=== PATIENT | male | born 1960 | race American Indian/Alaskan Native ===

== ENCOUNTER 2016-11-02 16:06 | Inpatient (IN) | payer BC ==
[2016-11-02] MEDS ORDERED: Sodium Chloride 0.9% 10 ML Syringe FLUSH PRN (18:50)
[2016-11-02] MEDS ORDERED: Sodium Chloride 0.9% 1,000 ML IV ONE (18:50)
[2016-11-02] MEDS ORDERED: Insulin Regular, Human 100 Units/ML 3 ML Vial SUBCUT ONE (20:07)
[2016-11-02] MEDS ORDERED: Lactulose Soln 10 GM/15 ML 30 ML UD Cup PO ONE (20:07)
--- NOTE | 2016-11-02 21:31 | EDM.PDOC ---
ED HPI GI/ABDOMINAL - General Chief Complaint: Gastrointestinal Problem Stated Complaint: HIGH AMMONIA Time Seen by Provider: 11/02/16 17:56 Source of Information: Reports: Patient History Limitations: Reports: Altered mental status - History of Present Illness INITIAL COMMENTS - FREE TEXT/NARRATIVE: Patient presents for evaluation and treatment of elevated ammonia levels. When patient first arrived in the ER it was quite busy. I was at first unclear how he arrived in the ER. An ambulance went out for a patient with elevated ammonia levels but did not bring him in. He was brought in by another family member who has since left the ER. Patient is very confused. He has difficulty answering my questions. H stutters and searches for words. Patient feels like he does when he normally has elevated ammonia levels. He is denying any pain. Review of his chart shows he should be on lactulose and rifaximin for his chronic liver disease. It is unclear he has been taking his medications. Review also shows associate Dr. Hernandez, GI specialist in [place]. It is also unclear if he has been following up with Dr. Hernandez or when his last visit would've been. Patient is also diabetic. It is unclear she has been taking his medications. It is unclear what his last blood sugar was. Bedside blood sugar in Ed is 309. Patient has been admitted to our hospital on several different occasions for hepatic encephalopathy and diabetes. Patient denies drinking any alcohol. - Related Data Allergies/ADRs: Allergies Allergy/AdvReac Type Severity Reaction Status Date / Time No Known Allergies Allergy Verified 11/02/16 16:40 Home Meds: Home Meds Pantoprazole [Protonix] 40 mg PO ACBREAKFAST #30 tab.cr 12/08/15 [Rx] Spironolactone 50 mg PO BID 03/03/16 [History] Rifaximin [Xifaxan] 550 mg PO BID 06/13/16 [History] metFORMIN [Glucophage] 850 mg PO BID 06/13/16 [History] Lactulose 30 ml PO TID 07/22/16 [History] Past Medical History Cardiovascular History: Reports: Hypertension Gastrointestinal History: Reports: Cirrhosis, GERD, GI bleed Other Gastrointestinal History: liver failure;stomach bleed Neurological History: Reports: Other (see below) Other Neuro History: hepatic encephalopathy Psychiatric History: Reports: Addiction Other Psychiatric History: recovered alcoholic Endocrine/Metabolic History: Reports: Diabetes, type II, Obesity/BMI 30+ Hematologic History: Reports: Anemia, Blood transfusion(s) Dermatologic History: Reports: Cellulitis, Other (see below) Other Dermatologic History: 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 History of cellulitis to both legs. - Infectious Disease History Infectious Disease History: Reports: Hepatitis non A,B,C, Measles, MRSA - Past Surgical History GI Surgical History: Reports: Other (see below) Other GI Surgeries/Procedures: esophageal varices Social & Family History - Family History Family Medical History: Noncontributory - Tobacco Use Smoking Status *Q: Former Smoker Years of Tobacco use: 25 Packs/Tins Daily: 0.5 Used Tobacco, but Quit: Yes Month Tobacco Last Used: 20 years ago Second Hand Smoke Exposure: No - Caffeine Use Caffeine Use: Reports: Coffee, Soda - Alcohol Use Days Per Week of Alcohol Use: 0 - Recreational Drug Use Recreational Drug Use: No - Living Situation & Occupation Living situation: Reports: , with family (Grandson) 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) ED ROS GENERAL - Review of Systems Review Of Systems: See Below Cardiovascular: Denies: Chest pain GI/Abdominal: Denies: Abdominal pain Neurological: Reports: Confusion ED EXAM, GI/ABD - Physical Exam Exam: See Below Exam Limited By: Altered mental status General Appearance: alert, WD/WN, obese Respiratory/Chest: no respiratory distress, lungs clear, normal breath sounds Cardiovascular: normal peripheral pulses, regular rate, rhythm, systolic murmur GI/Abdominal: normal bowel sounds, soft, non tender Neurological: confused, slow to respond Skin Exam: Dry, Jaundice EKG INTERPRETATION EKG Date: 11/02/16 Time: 18:50 Rhythm: NSR Rate (beats/min): 77 [place]: LAD-left axis deviation P-wave: present QRS: normal ST-T: normal QT: normal EKG Interpretation Comments: NSR at 77 bpm. No acute changes. Reviewed by myself and dr. Gutierres. Course - Vital Signs Last Recorded V/S: Last Vital Signs Temp 36.8 C 11/03/16 08:00 Pulse 78 11/02/16 21:00 Resp 19 11/03/16 08:00 BP 113/77 11/03/16 08:00 Pulse Ox 99 11/03/16 08:00 - Orders/Labs/Meds Orders: Active Orders 24 hr Category Date Time Status Chest 1V Frontal [CR] Stat Exams 11/02/16 18:44 Taken PTT MIXING STUDY [REF] Stat Lab 11/02/16 18:40 Stop Req Peripheral IV Insertion Adult [OM.PC] Routine Oth 11/02/16 18:50 Ordered Medication Orders Erythromycin (Jed-Tab) 250 mg PO Q6H [facility] Last Admin: 11/03/16 08:55 Dose: 250 mg Insulin Aspart (Novolog) 0 unit SUBCUT QIDACANDBED [facility] PRN Reason: Protocol Last Admin: 11/03/16 06:45 Dose: 2 units Lactulose (Cephulac) 40 gm PO TID [facility] Last Admin: 11/03/16 08:55 Dose: 40 gm Pantoprazole Sodium (Protonix) 40 mg PO DAILY@0700 [facility] Last Admin: 11/03/16 06:41 Dose: 40 mg Sodium Chloride (Saline Flush) 10 ml FLUSH ASDIRECTED PRN PRN Reason: Keep Vein Open Spironolactone (Aldactone) 50 mg PO DAILY [facility] Last Admin: 11/03/16 08:54 Dose: 50 mg Labs: Laboratory Tests 11/02/16 11/02/16 11/02/16 Range/Units 16:25 16:25 16:38 WBC (4.23-9.07) K/mm3 RBC (4.63-6.08) M/mm3 Hgb (13.7-17.5) gm/L Hct (40.1-51.0) % MCV (79.0-92.2) fl MCH (25.7-32.2) pg MCHC (32.2-35.5) g/dl RDW Std Deviation (35.1-43.9) fL Plt Count (163-337) K/mm3 MPV (9.4-12.3) fl Neutrophils % (Manual) (40-60) % Band Neutrophils % (0-10) % Lymphocytes % (Manual) (20-40) % Atypical Lymphs % % Monocytes % (Manual) (2-10) % Eosinophils % (Manual) (0.8-7.0) % Basophils % (Manual) (0.2-1.2) Platelet Estimate Plt Morphology Comment Polychromasia Poikilocytosis Anisocytosis Microcytosis Macrocytosis Spherocytes Ovalocytes RBC Morph Comment PT (8.0-13.0) SECONDS INR APTT (22-36) SECONDS Sodium (136-145) mEq/L Potassium (3.5-5.1) mEq/L Chloride (98-107) mEq/L Carbon Dioxide (21-32) mEq/L Anion Gap (5-15) BUN (7-18) mg/dL Creatinine (0.7-1.3) mg/dL Est Cr Clr Drug Dosing mL/min Estimated GFR (MDRD) (>60) mL/min BUN/Creatinine Ratio (14-18) Glucose (74-106) mg/dL POC Glucose 309 H (70-105) mg/dL Calcium (8.5-10.1) mg/dL Magnesium (1.8-2.4) mg/dl Total Bilirubin (0.2-1.0) mg/dL AST (15-37) U/L ALT (16-63) U/L Alkaline Phosphatase (46-116) U/L Ammonia (11-32) umol/L B-Natriuretic Peptide (0-100) pg/mL Total Protein (6.4-8.2) g/dl Albumin (3.4-5.0) g/dl Globulin gm/dL Albumin/Globulin Ratio (1-2) Urine Color Yellow (Yellow) Urine Appearance Clear (Clear) Urine pH 7.0 (5.0-8.0) Ur Specific [place] 1.015 (1.005-1.030) Urine Protein Negative (Negative) Urine Glucose (UA) 2+ H (Negative) Urine Ketones Negative (Negative) Urine Occult Blood 1+ H (Negative) Urine Nitrite Negative (Negative) Urine Bilirubin Negative (Negative) Urine Urobilinogen 4.0 H (0.2-1.0) Ur Leukocyte Esterase Trace H (Negative) Urine RBC Not seen (0-5) /hpf Urine WBC 0-5 (0-5) /hpf Ur Squamous Epith Cells 0-5 (0-5) /hpf Urine Bacteria Rare (FEW) /hpf Urine Mucus Not seen (FEW) /hpf Urine Opiates Screen Negative (NEGATIVE) Ur Buprenorphine Scrn Negative (NEGATIVE) Ur Oxycodone Screen Negative (NEGATIVE) Urine Methadone Screen Negative (NEGATIVE) Ur Propoxyphene Screen Negative (NEGATIVE) Ur Barbiturates Screen Negative (NEGATIVE) Ur Tricyclics Screen Negative (NEGATIVE) Ur Phencyclidine Scrn Negative (NEGATIVE) Ur Amphetamine Screen Negative (NEGATIVE) U Methamphetamines Scrn Negative (NEGATIVE) U Benzodiazepines Scrn Negative (NEGATIVE) U Cocaine Metab Screen Negative (NEGATIVE) U Marijuana (THC) Screen Negative (NEGATIVE) Ethyl Alcohol (0.00) gm% 11/02/16 11/02/16 11/02/16 Range/Units 18:20 18:20 18:20 WBC 2.04 L* (4.23-9.07) K/mm3 RBC 3.01 L (4.63-6.08) M/mm3 Hgb 9.6 L (13.7-17.5) gm/L Hct 27.8 L (40.1-51.0) % MCV 92.4 H (79.0-92.2) fl MCH 31.9 (25.7-32.2) pg MCHC 34.5 (32.2-35.5) g/dl RDW Std Deviation 53.9 H (35.1-43.9) fL Plt Count 39 L (163-337) K/mm3 MPV 10.0 (9.4-12.3) fl Neutrophils % (Manual) 74 H (40-60) % Band Neutrophils % 0 (0-10) % Lymphocytes % (Manual) 14 L (20-40) % Atypical Lymphs % 0 % Monocytes % (Manual) 6 (2-10) % Eosinophils % (Manual) 4 (0.8-7.0) % Basophils % (Manual) 2 H (0.2-1.2) Platelet Estimate Marked dec Plt Morphology Comment Normal Polychromasia 1+ slight Poikilocytosis 1+ slight Anisocytosis 1+ slight Microcytosis 1+ slight Macrocytosis 1+ slight Spherocytes 1+ slight Ovalocytes 1+ slight RBC Morph Comment Abnormal PT (8.0-13.0) SECONDS INR APTT (22-36) SECONDS Sodium 139 (136-145) mEq/L Potassium 4.4 (3.5-5.1) mEq/L Chloride 107 (98-107) mEq/L Carbon Dioxide 24 (21-32) mEq/L Anion Gap 12.4 (5-15) BUN 6 L (7-18) mg/dL Creatinine 0.8 (0.7-1.3) mg/dL Est Cr Clr Drug Dosing 105.19 mL/min Estimated GFR (MDRD) > 60 (>60) mL/min BUN/Creatinine Ratio 7.5 L (14-18) Glucose 301 H (74-106) mg/dL POC Glucose (70-105) mg/dL Calcium 8.1 L (8.5-10.1) mg/dL Magnesium (1.8-2.4) mg/dl Total Bilirubin 2.1 H (0.2-1.0) mg/dL AST 31 (15-37) U/L ALT 29 (16-63) U/L Alkaline Phosphatase 108 (46-116) U/L Ammonia 171 H (11-32) umol/L B-Natriuretic Peptide (0-100) pg/mL Total Protein 7.1 (6.4-8.2) g/dl Albumin 2.1 L (3.4-5.0) g/dl Globulin 5.0 gm/dL Albumin/Globulin Ratio 0.4 L (1-2) Urine Color (Yellow) Urine Appearance (Clear) Urine pH (5.0-8.0) Ur Specific [place] (1.005-1.030) Urine Protein (Negative) Urine Glucose (UA) (Negative) Urine Ketones (Negative) Urine Occult Blood (Negative) Urine Nitrite (Negative) Urine Bilirubin (Negative) Urine Urobilinogen (0.2-1.0) Ur Leukocyte Esterase (Negative) Urine RBC (0-5) /hpf Urine WBC (0-5) /hpf Ur Squamous Epith Cells (0-5) /hpf Urine Bacteria (FEW) /hpf Urine Mucus (FEW) /hpf Urine Opiates Screen (NEGATIVE) Ur Buprenorphine Scrn (NEGATIVE) Ur Oxycodone Screen (NEGATIVE) Urine Methadone Screen (NEGATIVE) Ur Propoxyphene Screen (NEGATIVE) Ur Barbiturates Screen (NEGATIVE) Ur Tricyclics Screen (NEGATIVE) Ur Phencyclidine Scrn (NEGATIVE) Ur Amphetamine Screen (NEGATIVE) U Methamphetamines Scrn (NEGATIVE) U Benzodiazepines Scrn (NEGATIVE) U Cocaine Metab Screen (NEGATIVE) U Marijuana (THC) Screen (NEGATIVE) Ethyl Alcohol (0.00) gm% 11/02/16 11/02/16 11/02/16 Range/Units 18:20 18:20 18:20 WBC (4.23-9.07) K/mm3 RBC (4.63-6.08) M/mm3 Hgb (13.7-17.5) gm/L Hct (40.1-51.0) % MCV (79.0-92.2) fl MCH (25.7-32.2) pg MCHC (32.2-35.5) g/dl RDW Std Deviation (35.1-43.9) fL Plt Count (163-337) K/mm3 MPV (9.4-12.3) fl Neutrophils % (Manual) (40-60) % Band Neutrophils % (0-10) % Lymphocytes % (Manual) (20-40) % Atypical Lymphs % % Monocytes % (Manual) (2-10) % Eosinophils % (Manual) (0.8-7.0) % Basophils % (Manual) (0.2-1.2) Platelet Estimate Plt Morphology Comment Polychromasia Poikilocytosis Anisocytosis Microcytosis Macrocytosis Spherocytes Ovalocytes RBC Morph Comment PT 15.2 H (8.0-13.0) SECONDS INR 1.37 APTT (22-36) SECONDS Sodium (136-145) mEq/L Potassium (3.5-5.1) mEq/L Chloride (98-107) mEq/L Carbon Dioxide (21-32) mEq/L Anion Gap (5-15) BUN (7-18) mg/dL Creatinine (0.7-1.3) mg/dL Est Cr Clr Drug Dosing mL/min Estimated GFR (MDRD) (>60) mL/min BUN/Creatinine Ratio (14-18) Glucose (74-106) mg/dL POC Glucose (70-105) mg/dL Calcium (8.5-10.1) mg/dL Magnesium (1.8-2.4) mg/dl Total Bilirubin (0.2-1.0) mg/dL AST (15-37) U/L ALT (16-63) U/L Alkaline Phosphatase (46-116) U/L Ammonia (11-32) umol/L B-Natriuretic Peptide 137 H (0-100) pg/mL Total Protein (6.4-8.2) g/dl Albumin (3.4-5.0) g/dl Globulin gm/dL Albumin/Globulin Ratio (1-2) Urine Color (Yellow) Urine Appearance (Clear) Urine pH (5.0-8.0) Ur Specific [place] (1.005-1.030) Urine Protein (Negative) Urine Glucose (UA) (Negative) Urine Ketones (Negative) Urine Occult Blood (Negative) Urine Nitrite (Negative) Urine Bilirubin (Negative) Urine Urobilinogen (0.2-1.0) Ur Leukocyte Esterase (Negative) Urine RBC (0-5) /hpf Urine WBC (0-5) /hpf Ur Squamous Epith Cells (0-5) /hpf Urine Bacteria (FEW) /hpf Urine Mucus (FEW) /hpf Urine Opiates Screen (NEGATIVE) Ur Buprenorphine Scrn (NEGATIVE) Ur Oxycodone Screen (NEGATIVE) Urine Methadone Screen (NEGATIVE) Ur Propoxyphene Screen (NEGATIVE) Ur Barbiturates Screen (NEGATIVE) Ur Tricyclics Screen (NEGATIVE) Ur Phencyclidine Scrn (NEGATIVE) Ur Amphetamine Screen (NEGATIVE) U Methamphetamines Scrn (NEGATIVE) U Benzodiazepines Scrn (NEGATIVE) U Cocaine Metab Screen (NEGATIVE) U Marijuana (THC) Screen (NEGATIVE) Ethyl Alcohol 0.00 (0.00) gm% 11/02/16 11/02/16 11/02/16 Range/Units 18:20 18:40 20:54 WBC (4.23-9.07) K/mm3 RBC (4.63-6.08) M/mm3 Hgb (13.7-17.5) gm/L Hct (40.1-51.0) % MCV (79.0-92.2) fl MCH (25.7-32.2) pg MCHC (32.2-35.5) g/dl RDW Std Deviation (35.1-43.9) fL Plt Count (163-337) K/mm3 MPV (9.4-12.3) fl Neutrophils % (Manual) (40-60) % Band Neutrophils % (0-10) % Lymphocytes % (Manual) (20-40) % Atypical Lymphs % % Monocytes % (Manual) (2-10) % Eosinophils % (Manual) (0.8-7.0) % Basophils % (Manual) (0.2-1.2) Platelet Estimate Plt Morphology Comment Polychromasia Poikilocytosis Anisocytosis Microcytosis Macrocytosis Spherocytes Ovalocytes RBC Morph Comment PT (8.0-13.0) SECONDS INR APTT 41 H (22-36) SECONDS Sodium (136-145) mEq/L Potassium (3.5-5.1) mEq/L Chloride (98-107) mEq/L Carbon Dioxide (21-32) mEq/L Anion Gap (5-15) BUN (7-18) mg/dL Creatinine (0.7-1.3) mg/dL Est Cr Clr Drug Dosing mL/min Estimated GFR (MDRD) (>60) mL/min BUN/Creatinine Ratio (14-18) Glucose (74-106) mg/dL POC Glucose 231 H (70-105) mg/dL Calcium (8.5-10.1) mg/dL Magnesium 1.5 L (1.8-2.4) mg/dl Total Bilirubin (0.2-1.0) mg/dL AST (15-37) U/L ALT (16-63) U/L Alkaline Phosphatase (46-116) U/L Ammonia (11-32) umol/L B-Natriuretic Peptide (0-100) pg/mL Total Protein (6.4-8.2) g/dl Albumin (3.4-5.0) g/dl Globulin gm/dL Albumin/Globulin Ratio (1-2) Urine Color (Yellow) Urine Appearance (Clear) Urine pH (5.0-8.0) Ur Specific [place] (1.005-1.030) Urine Protein (Negative) Urine Glucose (UA) (Negative) Urine Ketones (Negative) Urine Occult Blood (Negative) Urine Nitrite (Negative) Urine Bilirubin (Negative) Urine Urobilinogen (0.2-1.0) Ur Leukocyte Esterase (Negative) Urine RBC (0-5) /hpf Urine WBC (0-5) /hpf Ur Squamous Epith Cells (0-5) /hpf Urine Bacteria (FEW) /hpf Urine Mucus (FEW) /hpf Urine Opiates Screen (NEGATIVE) Ur Buprenorphine Scrn (NEGATIVE) Ur Oxycodone Screen (NEGATIVE) Urine Methadone Screen (NEGATIVE) Ur Propoxyphene Screen (NEGATIVE) Ur Barbiturates Screen (NEGATIVE) Ur Tricyclics Screen (NEGATIVE) Ur Phencyclidine Scrn (NEGATIVE) Ur Amphetamine Screen (NEGATIVE) U Methamphetamines Scrn (NEGATIVE) U Benzodiazepines Scrn (NEGATIVE) U Cocaine Metab Screen (NEGATIVE) U Marijuana (THC) Screen (NEGATIVE) Ethyl Alcohol (0.00) gm% Meds: Medications Generic Name Dose Route Start Last Admin Trade Name Freq PRN Reason Stop Dose Admin Erythromycin 250 mg 11/03/16 09:00 11/03/16 08:55 Jed-Tab PO 250 mg Q6H DHIRAJ Administration Insulin Aspart 0 unit 11/03/16 07:00 11/03/16 06:45 Novolog SUBCUT 2 units QIDACANDBED DHIRAJ Administration Protocol Lactulose 40 gm 11/03/16 09:00 11/03/16 08:55 Cephulac PO 40 gm TID DHIRAJ Administration Pantoprazole Sodium 40 mg 11/03/16 07:00 11/03/16 06:41 Protonix PO 40 mg DAILY@0700 DHIRAJ Administration Sodium Chloride 10 ml 11/03/16 09:39 Saline Flush FLUSH ASDIRECTED PRN Keep Vein Open Spironolactone 50 mg 11/03/16 09:00 11/03/16 08:54 Aldactone PO 50 mg DAILY DHIRAJ Administration Discontinued Medications Generic Name Dose Route Start Last Admin Trade Name Koreyq PRN Reason Stop Dose Admin Erythromycin 250 mg 11/03/16 00:00 11/03/16 07:40 Jed-Tab PO Not Given Q6H [facility] Sodium Chloride 1,000 mls @ 100 mls/hr 11/02/16 18:50 11/02/16 19:54 Normal Saline IV 11/03/16 04:49 100 mls/hr ONETIME ONE Administration Insulin Human Regular 5 unit 11/02/16 20:07 11/02/16 20:57 Humulin R SUBCUT 11/02/16 20:08 5 units ONETIME ONE Administration Lactulose 40 gm 11/02/16 20:07 11/02/16 20:55 Cephulac PO 11/02/16 20:08 40 gm ONETIME ONE Administration Sodium Chloride 10 ml 11/02/16 18:50 11/02/16 19:54 Saline Flush FLUSH 10 ml ASDIRECTED PRN Administration Keep Vein Open - Radiology Interpretation Free Text/Narrative:: Chest xray shows cardiomegaly. No acute changes. - Re-Assessments/Exams Free Text/Narrative Re-Assessment/Exam: 11/02/16 21:00 The patient's labs are returned. White blood cell count is 2.04 (this appears to be chronic for him, and white blood cell count is normally 2-3.), Hemoglobin is 9.6. (Again, chronic), platelets are 39 (chronic). Sodium is 139, potassium is 4.4 and chloride is 107. Anion gap is 12.4. Glucose is 301. Magnesium is 1.5. BNP is 137. PT is 15.2, INR is 1.37 and PTT is 41. ammonia is 171 (this appears to be the highest level we have on file for him recently) Urine has 2+ glucose, 1+ blood, trace leukocytes. Urine drug screen is negative. Alcohol is zero. I gave the patient 40 mg of lactulose and 5 subcutaneous units of insulin. I discussed this with Dr. Nuno. Due to his noncompliance she feels that transfer to [place] with GI specialist would be the best course for him. It is unclear when he last saw his specialist and she feels that he would benefit from seeing him again. I discussed the case with Dr. Duron, hospitalist on-call at [facility]. She does not accept patient. She feels we can manage the elevated ammonia levels here. She feels he can see his GI specialist on an outpatient basis. I discussed the case with Dr. Nuno, again, she agrees to the admission and will admit to the ICU. Departure - Departure Time of Disposition: 21:00 Disposition: Admitted As Inpatient 65 Condition: poor Clinical Impression: Pancytopenia, Hypomagnesemia, Poorly controlled diabetes mellitus, Hepatic encephalopathy - My Orders Last 24 Hours: My Active Orders 11/02/16 18:40 PTT MIXING STUDY [REF] Stat 11/02/16 18:44 Chest 1V Frontal [CR] Stat 11/02/16 18:50 Peripheral IV Insertion Adult [OM.PC] Routine - Assessment/Plan Last 24 Hours: My Active Orders 11/02/16 18:40 PTT MIXING STUDY [REF] Stat 11/02/16 18:44 Chest 1V Frontal [CR] Stat 11/02/16 18:50 Peripheral IV Insertion Adult [OM.PC] Routine
[2016-11-03] MEDS: Pantoprazole 40 MG Tab.CR PO SCH (06:41)
[2016-11-03] MEDS: Insulin Aspart 100 Units/ML 3 ML Pen SUBCUT SCH ×4 (06:45→21:44)
[2016-11-03] MEDS: Spironolactone 25 MG Tab PO SCH (08:54)
[2016-11-03] MEDS: Lactulose Soln 10 GM/15 ML 30 ML UD Cup PO SCH ×3 (08:55→21:43)
[2016-11-03] MEDS ORDERED: Sodium Chloride 0.9% 10 ML Syringe FLUSH PRN (09:39)
--- NOTE | 2016-11-03 12:08 | PCM.HP ---
H&P History of Present Illness - General Date of Service: 11/02/16 Admit Problem/Dx: Admission Diagnosis/Problem Admission Diagnosis/Problem Hepatic encephalopathy Source of Information: Family, Provider History Limitations: Reports: No limitations - History of Present Illness Initial Comments - Free Text/Narative: 56 year old male with increasing confusion, forgot on several occasions to take his lactulose, presents with an ammonia level, 171. Has had multiple ED presentations with elevated ammonia level in the 150s. He is able to participate in the history but can only recall recent events. Reportedly sees Dr Hernandez in [place], but for one or more reasons, has not followed up since June 2016 in spite of scheduled appointments. Lactulose 40 gm and insulin were given in the ED. The patient will be admitted to the ICU for acute confusion. Onset of Symptoms: Reports: unknown/unsure Duration of Symptoms: Reports: Week(s):, Getting worse Quality: Reports: Same as previous episode Severity: moderate Improves with: Reports: Medication Context: Reports: other (medical noncompliance) - Related Data Allergies/Adverse Reactions: Allergies Allergy/AdvReac Type Severity Reaction Status Date / Time No Known Allergies Allergy Verified 11/02/16 16:40 Home Medications: Home Meds Pantoprazole [Protonix] 40 mg PO ACBREAKFAST #30 tab.cr 12/08/15 [Rx] Spironolactone 50 mg PO BID 03/03/16 [History] Rifaximin [Xifaxan] 550 mg PO BID 06/13/16 [History] metFORMIN [Glucophage] 850 mg PO BID 06/13/16 [History] Lactulose 30 ml PO TID 07/22/16 [History] Past Medical History Cardiovascular History: Reports: Hypertension Gastrointestinal History: Reports: Cirrhosis, GERD, GI bleed Other Gastrointestinal History: liver failure;stomach bleed Neurological History: Reports: Other (see below) Other Neuro History: hepatic encephalopathy Psychiatric History: Reports: Addiction Other Psychiatric History: recovered alcoholic Endocrine/Metabolic History: Reports: Diabetes, type II, Obesity/BMI 30+ Hematologic History: Reports: Anemia, Blood transfusion(s) Dermatologic History: Reports: Cellulitis, Other (see below) Other Dermatologic History: 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 History of cellulitis to both legs. - Infectious Disease History Infectious Disease History: Reports: Hepatitis non A,B,C, Measles, MRSA - Past Surgical History GI Surgical History: Reports: Other (see below) Other GI Surgeries/Procedures: esophageal varices Social & Family History - Family History Family Medical History: Noncontributory - Tobacco Use Smoking Status *Q: Former Smoker Years of Tobacco use: 25 Packs/Tins Daily: 0.5 Used Tobacco, but Quit: Yes Month Tobacco Last Used: 20 years ago Second Hand Smoke Exposure: No - Caffeine Use Caffeine Use: Reports: Coffee, Soda - Alcohol Use Days Per Week of Alcohol Use: 0 - Recreational Drug Use Recreational Drug Use: No - Living Situation & Occupation Living situation: Reports: , with family (Grandson) 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) H&P Review of Systems - Review of Systems: Review Of Systems: See Below General: Reports: no symptoms, weakness HEENT: Reports: no symptoms Pulmonary: Reports: No Symptoms Cardiovascular: Reports: no symptoms Gastrointestinal: Reports: No symptoms Genitourinary: Reports: no symptoms Musculoskeletal: Reports: no symptoms Skin: Reports: no symptoms Psychiatric: Reports: confusion Neurological: Reports: No Symptoms Hematologic/Lymphatic: Reports: no symptoms Immunologic: Reports: no symptoms Exam - Exam Exam: See Below - Vital Signs Vital Signs: Last Vital Signs Temp 36.8 C 11/03/16 08:00 Pulse 78 11/02/16 21:00 Resp 19 11/03/16 08:00 BP 113/77 11/03/16 08:00 Pulse Ox 99 11/03/16 08:00 Weight: 117.979 kg - Exam Quality Assessment: DVT prophylaxis General: alert, cooperative HEENT: Nares patent, Normal nasal septum, Pupils equal, Pupils reactive Neck: supple, trachea midline Lungs: Normal respiratory effort Cardiovascular: regular rate, regular rhythm Abdomen: normal bowel sounds, soft, organomegaly (Male) Exam: Deferred Rectal (Males) Exam: Deferred Back Exam: normal inspection Extremities: normal pulses, edema Skin: warm, dry Neurological: cranial nerves intact Neuro Extensive - Mental Status: alert, normal mood/affect, memory loss-remote events Neuro Extensive - Motor, Sensory, Reflexes: CN II-XII intact Psychiatric: alert, normal affect, normal mood - Patient Data Lab Results last 24 hrs: Laboratory Results - last 24 hr 11/03/16 Range/Units 06:39 POC Glucose 192 H (70-105) mg/dL Result Diagrams: 11/04/16 04:35 11/04/16 04:35 *Q Meaningful Use (ADM) - VTE *Q VTE Criteria *Q: - Stroke *Q Stroke Criteria *Q: - AMI *Q AMI Criteria *Q: Problem List Initiated/Reviewed/Updated: Yes Orders Last 24hrs: Active Orders 24 hr Category Date Time Status Transfer Patient (Change bed) [ADT] Routine ADT 11/03/16 12:03 Active Bedrest Bathroom Privileges [RC] ASDIRECTED Care 11/02/16 23:22 Active Blood Glucose Check, Bedside [RC] QIDACANDBED Care 11/02/16 23:11 Active Vital Signs [RC] Q4HR Care 11/02/16 23:16 Active AMMONIA VENOUS [CHEM] AM Lab 11/04/16 05:11 Ordered AMMONIA VENOUS [CHEM] Routine Lab 11/03/16 11:30 Ordered BASIC METABOLIC PANEL,BMP [CHEM] AM Lab 11/04/16 05:11 Ordered BASIC METABOLIC PANEL,BMP [CHEM] Routine Lab 11/03/16 11:30 Ordered CBC WITH AUTO DIFF [HEME] AM Lab 11/04/16 05:11 Ordered MAGNESIUM [CHEM] AM Lab 11/04/16 05:11 Ordered Erythromycin Base [Jed-Tab] Med 11/03/16 09:00 Active 250 mg PO Q6H Insulin Aspart [NovoLOG] Med 11/03/16 07:00 Active See Protocol SUBCUT QIDACANDBED Lactulose [Cephulac] Med 11/03/16 09:00 Active 40 gm PO TID Pantoprazole [Protonix] Med 11/03/16 07:00 Active 40 mg PO DAILY@0700 Sodium Chloride 0.9% [Saline Flush] Med 11/03/16 09:39 Active 10 ml FLUSH ASDIRECTED PRN Spironolactone [Aldactone] Med 11/03/16 09:00 Active 50 mg PO DAILY Resuscitation Status Routine Resus Stat 11/02/16 23:19 Ordered Medication Orders Erythromycin (Jed-Tab) 250 mg PO Q6H [facility] Last Admin: 11/03/16 08:55 Dose: 250 mg Insulin Aspart (Novolog) 0 unit SUBCUT QIDACANDBED [facility] PRN Reason: Protocol Last Admin: 11/03/16 06:45 Dose: 2 units Lactulose (Cephulac) 40 gm PO TID [facility] Last Admin: 11/03/16 08:55 Dose: 40 gm Pantoprazole Sodium (Protonix) 40 mg PO DAILY@0700 [facility] Last Admin: 11/03/16 06:41 Dose: 40 mg Sodium Chloride (Saline Flush) 10 ml FLUSH ASDIRECTED PRN PRN Reason: Keep Vein Open Spironolactone (Aldactone) 50 mg PO DAILY [facility] Last Admin: 11/03/16 08:54 Dose: 50 mg Assessment/Plan Comment:: Impression: Hepatic Encephalopathy, ammonia level 171 Non compliance Anemia Chronic disease Diabetes Mellitus with hyperglycemia UTI Chronic GERD Hepatic encephalopathy History of TIPS Plan IV ATBs. ICU admission Resume Lactulose, Xifaxan Add erythromycin 250 mg Q 6 hours SS Novolog SW/PT/OT DVT/GI prophylaxis
--- NOTE | 2016-11-03 18:02 | PCM.PN ---
- General Info Date of Service: 11/03/16 Functional Status: Reports: tolerating diet, ambulating, urinating - Review of Systems General: Reports: No Symptoms HEENT: Reports: no symptoms Pulmonary: Reports: no symptoms Cardiovascular: Reports: No Symptoms Gastrointestinal: Reports: No symptoms Genitourinary: Reports: no symptoms Musculoskeletal: Reports: no symptoms Skin: Reports: no symptoms Neurological: Reports: No Symptoms Psychiatric: Reports: no symptoms - Patient Data Vitals - most recent: Last Vital Signs Temp 36.9 C 11/03/16 12:00 Pulse 82 11/03/16 16:55 Resp 18 11/03/16 16:55 BP 121/58 L 11/03/16 16:55 Pulse Ox 98 11/03/16 16:55 Weight - most recent: 117.979 kg I&O - last 24 hours: Intake & Output 11/03/16 11/03/16 11/03/16 06:59 14:59 22:59 Intake Total 1066 360 440 Output Total 350 320 520 Balance 716 40 -80 Lab Results last 24 hrs: Laboratory Results - last 24 hr 11/03/16 11/03/16 11/03/16 Range/Units 06:39 11:55 11:55 Sodium 137 (136-145) mEq/L Potassium 4.2 (3.5-5.1) mEq/L Chloride 107 (98-107) mEq/L Carbon Dioxide 21 (21-32) mEq/L Anion Gap 13.2 (5-15) BUN 8 (7-18) mg/dL Creatinine 0.8 (0.7-1.3) mg/dL Est Cr Clr Drug Dosing 105.19 mL/min Estimated GFR (MDRD) > 60 (>60) mL/min BUN/Creatinine Ratio 10.0 L (14-18) Glucose 251 H (74-106) mg/dL POC Glucose 192 H (70-105) mg/dL Calcium 8.2 L (8.5-10.1) mg/dL Ammonia 114 H (11-32) umol/L 11/03/16 Range/Units 16:54 Sodium (136-145) mEq/L Potassium (3.5-5.1) mEq/L Chloride (98-107) mEq/L Carbon Dioxide (21-32) mEq/L Anion Gap (5-15) BUN (7-18) mg/dL Creatinine (0.7-1.3) mg/dL Est Cr Clr Drug Dosing mL/min Estimated GFR (MDRD) (>60) mL/min BUN/Creatinine Ratio (14-18) Glucose (74-106) mg/dL POC Glucose 260 H (70-105) mg/dL Calcium (8.5-10.1) mg/dL Ammonia (11-32) umol/L Med Orders - Current: Current Medications Erythromycin (Jed-Tab) 250 mg PO Q6H [facility] Last Admin: 11/03/16 14:26 Dose: 250 mg Insulin Aspart (Novolog) 0 unit SUBCUT QIDACANDBED [facility] PRN Reason: Protocol Last Admin: 11/03/16 17:27 Dose: 6 units Lactulose (Cephulac) 40 gm PO TID [facility] Last Admin: 11/03/16 14:26 Dose: 40 gm Pantoprazole Sodium (Protonix) 40 mg PO DAILY@0700 [facility] Last Admin: 11/03/16 06:41 Dose: 40 mg Sodium Chloride (Saline Flush) 10 ml FLUSH ASDIRECTED PRN PRN Reason: Keep Vein Open Spironolactone (Aldactone) 50 mg PO DAILY [facility] Last Admin: 11/03/16 08:54 Dose: 50 mg Discontinued Medications Erythromycin (Jed-Tab) 250 mg PO Q6H [facility] Last Admin: 11/03/16 07:40 Dose: Not Given Sodium Chloride (Normal Saline) 1,000 mls @ 100 mls/hr IV ONETIME ONE Stop: 11/03/16 04:49 Last Admin: 11/02/16 19:54 Dose: 100 mls/hr Insulin Human Regular (Humulin R) 5 unit SUBCUT ONETIME ONE Stop: 11/02/16 20:08 Last Admin: 11/02/16 20:57 Dose: 5 units Lactulose (Cephulac) 40 gm PO ONETIME ONE Stop: 11/02/16 20:08 Last Admin: 11/02/16 20:55 Dose: 40 gm Sodium Chloride (Saline Flush) 10 ml FLUSH ASDIRECTED PRN PRN Reason: Keep Vein Open Last Admin: 11/02/16 19:54 Dose: 10 ml - Exam Quality Assessment: supplemental oxygen, DVT prophylaxis General: alert, oriented, cooperative, no acute distress HEENT: Pupils equal, Pupils reactive, EOMI Neck: supple, trachea midline Lungs: Normal respiratory effort Cardiovascular: Regular Rate, Regular Rhythm Abdomen: bowel sounds present, soft, no tenderness, no distension (Male) Exam: Deferred Back Exam: normal inspection Extremities: normal pulses Skin: warm Neurological: no new focal deficit, normal speech Psy/Mental Status: alert, normal affect, normal mood - Problem List Review Problem List Initiated/Reviewed/Updated: Yes - My Orders Last 24 Hours: My Active Orders 11/02/16 23:11 Blood Glucose Check, Bedside [RC] QIDACANDBED 11/02/16 23:16 Vital Signs [RC] Q4HR 11/02/16 23:19 Resuscitation Status Routine 11/02/16 23:22 Bedrest Bathroom Privileges [RC] ASDIRECTED 11/03/16 07:00 Insulin Aspart [NovoLOG] See Protocol SUBCUT QIDACANDBED Pantoprazole [Protonix] 40 mg PO DAILY@0700 11/03/16 09:00 Erythromycin Base [Jed-Tab] 250 mg PO Q6H Lactulose [Cephulac] 40 gm PO TID Spironolactone [Aldactone] 50 mg PO DAILY 11/03/16 09:39 Sodium Chloride 0.9% [Saline Flush] 10 ml FLUSH ASDIRECTED PRN 11/03/16 12:03 Transfer Patient (Change bed) [ADT] Routine 11/03/16 15:33 Patient Status [ADT] Routine 11/03/16 17:50 Antiembolic Devices [RC] PER UNIT ROUTINE CYNTHIA Hose [Antiembolic Hose] [OM.PC] Routine 11/04/16 05:11 AMMONIA VENOUS [CHEM] AM BASIC METABOLIC PANEL,BMP [CHEM] AM CBC WITH AUTO DIFF [HEME] AM MAGNESIUM [CHEM] AM - Plan Plan:: Impression: AMS, resolving. Hepatic encephalopathy, alcoholic cirrhosis Medical non-compliance UTI on IV ATB IVF Accucheck IV ATB Continue Lactulose/Erythromycin/Rifaximin Home meds DVT/GI prophylaxis
[2016-11-03] MEDS ORDERED: Magnesium Sulfate/Water 2 GM in Premix Bag 1 BAG IV ONE (18:17)
[2016-11-03] MEDS: cefTRIAXone 1 GM in Sodium Chloride 0.9% 100 ML IV SCH (20:53)
[2016-11-03] MEDS ORDERED: Rifaximin 550 MG Tab PO SCH (21:00)
[2016-11-04] MEDS: Pantoprazole 40 MG Tab.CR PO SCH (06:38)
[2016-11-04] MEDS: Insulin Aspart 100 Units/ML 3 ML Pen SUBCUT SCH ×4 (06:41→21:24)
[2016-11-04] MEDS: Multivitamins,Therapeutic Tab PO SCH (09:27)
[2016-11-04] MEDS: Spironolactone 25 MG Tab PO SCH (09:27)
[2016-11-04] MEDS: Rifaximin 550 MG Tab PO SCH ×2 (09:28→21:24)
[2016-11-04] MEDS: Lactulose Soln 10 GM/15 ML 30 ML UD Cup PO SCH ×3 (10:52→21:23)
[2016-11-04] MEDS ORDERED: Magnesium Sulfate/Water 2 GM in Premix Bag 1 BAG IV ONE (11:00)
--- NOTE | 2016-11-04 11:12 | PCM.PN ---
- General Info Date of Service: 11/04/16 Subjective Update: Feeling better, greatly improved ammonia level; will move to MS faria; DC expected 11/05/16. Functional Status: Reports: tolerating diet, ambulating, urinating - Review of Systems General: Reports: No Symptoms HEENT: Reports: no symptoms Pulmonary: Reports: no symptoms Cardiovascular: Reports: No Symptoms Gastrointestinal: Reports: No symptoms Genitourinary: Reports: no symptoms Musculoskeletal: Reports: no symptoms Skin: Reports: no symptoms Neurological: Reports: No Symptoms Psychiatric: Reports: no symptoms - Patient Data Vitals - most recent: Last Vital Signs Temp 36.9 C 11/04/16 07:42 Pulse 80 11/04/16 07:42 Resp 17 11/04/16 07:42 BP 123/61 11/04/16 07:42 Pulse Ox 95 11/04/16 07:42 Weight - most recent: 118.887 kg I&O - last 24 hours: Intake & Output 11/03/16 11/04/16 11/04/16 22:59 06:59 14:59 Intake Total 560 950 Output Total 520 Balance 40 950 Lab Results last 24 hrs: Laboratory Results - last 24 hr 11/03/16 11/03/16 11/03/16 Range/Units 11:55 11:55 16:54 WBC (4.23-9.07) K/mm3 RBC (4.63-6.08) M/mm3 Hgb (13.7-17.5) gm/L Hct (40.1-51.0) % MCV (79.0-92.2) fl MCH (25.7-32.2) pg MCHC (32.2-35.5) g/dl RDW Std Deviation (35.1-43.9) fL Plt Count (163-337) K/mm3 MPV (9.4-12.3) fl Neut % (Auto) (34.0-67.9) % Lymph % (Auto) (21.8-53.1) % [place] % (Auto) (5.3-12.2) % Eos % (Auto) (0.8-7.0) Baso % (Auto) (0.1-1.2) % Neut # (Auto) (1.78-5.38) K/mm3 Lymph # (Auto) (1.32-3.57) K/mm3 [place] # (Auto) (0.30-0.82) K/mm3 Eos # (Auto) (0.04-0.54) K/mm3 Baso # (Auto) (0.01-0.08) K/mm3 Manual Slide Review Sodium 137 (136-145) mEq/L Potassium 4.2 (3.5-5.1) mEq/L Chloride 107 (98-107) mEq/L Carbon Dioxide 21 (21-32) mEq/L Anion Gap 13.2 (5-15) BUN 8 (7-18) mg/dL Creatinine 0.8 (0.7-1.3) mg/dL Est Cr Clr Drug Dosing 105.19 mL/min Estimated GFR (MDRD) > 60 (>60) mL/min BUN/Creatinine Ratio 10.0 L (14-18) Glucose 251 H (74-106) mg/dL POC Glucose 260 H (70-105) mg/dL Calcium 8.2 L (8.5-10.1) mg/dL Magnesium (1.8-2.4) mg/dl Ammonia 114 H (11-32) umol/L 11/03/16 11/04/16/ Range/Units 20:50 04:35 04:35 WBC 2.63 L (4.23-9.07) K/mm3 RBC 2.79 L (4.63-6.08) M/mm3 Hgb 8.8 L (13.7-17.5) gm/L Hct 25.3 L (40.1-51.0) % MCV 90.7 (79.0-92.2) fl MCH 31.5 (25.7-32.2) pg MCHC 34.8 (32.2-35.5) g/dl RDW Std Deviation 51.6 H (35.1-43.9) fL Plt Count 40 L (163-337) K/mm3 MPV 10.1 (9.4-12.3) fl Neut % (Auto) 63.5 (34.0-67.9) % Lymph % (Auto) 26.2 (21.8-53.1) % [place] % (Auto) 8.4 (5.3-12.2) % Eos % (Auto) 1.5 (0.8-7.0) Baso % (Auto) 0.4 (0.1-1.2) % Neut # (Auto) 1.67 L (1.78-5.38) K/mm3 Lymph # (Auto) 0.69 L (1.32-3.57) K/mm3 [place] # (Auto) 0.22 L (0.30-0.82) K/mm3 Eos # (Auto) 0.04 (0.04-0.54) K/mm3 Baso # (Auto) 0.01 (0.01-0.08) K/mm3 Manual Slide Review Abnormal smear Sodium 136 (136-145) mEq/L Potassium 3.8 (3.5-5.1) mEq/L Chloride 107 (98-107) mEq/L Carbon Dioxide 21 (21-32) mEq/L Anion Gap 11.8 (5-15) BUN 9 (7-18) mg/dL Creatinine 0.7 (0.7-1.3) mg/dL Est Cr Clr Drug Dosing 120.22 mL/min Estimated GFR (MDRD) > 60 (>60) mL/min BUN/Creatinine Ratio 12.9 L (14-18) Glucose 151 H (74-106) mg/dL POC Glucose 270 H (70-105) mg/dL Calcium 7.9 L (8.5-10.1) mg/dL Magnesium 1.5 L (1.8-2.4) mg/dl Ammonia (11-32) umol/L 11/04/16 11/04/16 Range/Units 04:35 06:40 WBC (4.23-9.07) K/mm3 RBC (4.63-6.08) M/mm3 Hgb (13.7-17.5) gm/L Hct (40.1-51.0) % MCV (79.0-92.2) fl MCH (25.7-32.2) pg MCHC (32.2-35.5) g/dl RDW Std Deviation (35.1-43.9) fL Plt Count (163-337) K/mm3 MPV (9.4-12.3) fl Neut % (Auto) (34.0-67.9) % Lymph % (Auto) (21.8-53.1) % [place] % (Auto) (5.3-12.2) % Eos % (Auto) (0.8-7.0) Baso % (Auto) (0.1-1.2) % Neut # (Auto) (1.78-5.38) K/mm3 Lymph # (Auto) (1.32-3.57) K/mm3 [place] # (Auto) (0.30-0.82) K/mm3 Eos # (Auto) (0.04-0.54) K/mm3 Baso # (Auto) (0.01-0.08) K/mm3 Manual Slide Review Sodium (136-145) mEq/L Potassium (3.5-5.1) mEq/L Chloride (98-107) mEq/L Carbon Dioxide (21-32) mEq/L Anion Gap (5-15) BUN (7-18) mg/dL Creatinine (0.7-1.3) mg/dL Est Cr Clr Drug Dosing mL/min Estimated GFR (MDRD) (>60) mL/min BUN/Creatinine Ratio (14-18) Glucose (74-106) mg/dL POC Glucose 145 H (70-105) mg/dL Calcium (8.5-10.1) mg/dL Magnesium (1.8-2.4) mg/dl Ammonia 94 H (11-32) umol/L Med Orders - Current: Current Medications Erythromycin (Jed-Tab) 250 mg PO Q6H [facility] Last Admin: 11/04/16 09:29 Dose: 250 mg Ceftriaxone Sodium 1 gm/ (Sodium Chloride) 100 mls @ 200 mls/hr IV Q24H [facility] Last Admin: 11/03/16 20:53 Dose: 200 mls/hr Magnesium Sulfate 2 gm/ Premix 50 mls @ 25 mls/hr IV ONETIME ONE Stop: 11/04/16 12:59 Insulin Aspart (Novolog) 0 unit SUBCUT QIDACANDBED [facility] PRN Reason: Protocol Last Admin: 11/04/16 06:41 Dose: Not Given Lactulose (Cephulac) 40 gm PO TID [facility] Last Admin: 11/04/16 10:52 Dose: 40 gm Multivitamins (Thera) 1 each PO DAILY [facility] Last Admin: 11/04/16 09:27 Dose: 1 each Pantoprazole Sodium (Protonix) 40 mg PO DAILY@0700 [facility] Last Admin: 11/04/16 06:38 Dose: 40 mg Rifaximin (Xifaxan) 550 mg PO BID [facility] Last Admin: 11/04/16 09:28 Dose: 550 mg Sodium Chloride (Saline Flush) 10 ml FLUSH ASDIRECTED PRN PRN Reason: Keep Vein Open Spironolactone (Aldactone) 50 mg PO DAILY [facility] Last Admin: 11/04/16 09:27 Dose: 50 mg Discontinued Medications Erythromycin (Jed-Tab) 250 mg PO Q6H [facility] Last Admin: 11/03/16 07:40 Dose: Not Given Sodium Chloride (Normal Saline) 1,000 mls @ 100 mls/hr IV ONETIME ONE Stop: 11/03/16 04:49 Last Admin: 11/02/16 19:54 Dose: 100 mls/hr Magnesium Sulfate 2 gm/ Premix 50 mls @ 25 mls/hr IV ONETIME ONE Stop: 11/03/16 20:16 Last Admin: 11/03/16 18:33 Dose: 25 mls/hr Insulin Human Regular (Humulin R) 5 unit SUBCUT ONETIME ONE Stop: 11/02/16 20:08 Last Admin: 11/02/16 20:57 Dose: 5 units Lactulose (Cephulac) 40 gm PO ONETIME ONE Stop: 11/02/16 20:08 Last Admin: 11/02/16 20:55 Dose: 40 gm Lactulose (Cephulac) 40 gm PO TID [facility] Last Admin: 11/03/16 14:26 Dose: 40 gm Rifaximin (Xifaxan) 550 mg PO BID [facility] Last Admin: 11/03/16 21:44 Dose: Not Given Sodium Chloride (Saline Flush) 10 ml FLUSH ASDIRECTED PRN PRN Reason: Keep Vein Open Last Admin: 11/02/16 19:54 Dose: 10 ml - Exam Quality Assessment: DVT prophylaxis General: alert, oriented, cooperative, no acute distress HEENT: Pupils equal, Pupils reactive, EOMI Neck: supple, trachea midline, no JVD Lungs: Normal respiratory effort, Decreased breath sounds Cardiovascular: Regular Rate, Regular Rhythm Abdomen: bowel sounds present, soft, no tenderness, distension. No: no distension (Male) Exam: Deferred Back Exam: normal inspection Extremities: edema (non pitting) Skin: warm Neurological: no new focal deficit, normal speech Psy/Mental Status: alert, normal affect, normal mood - Problem List Review Problem List Initiated/Reviewed/Updated: Yes - My Orders Last 24 Hours: My Active Orders 11/03/16 12:03 Transfer Patient (Change bed) [ADT] Routine 11/03/16 15:33 Patient Status [ADT] Routine 11/03/16 17:50 Antiembolic Devices [RC] PER UNIT ROUTINE CYNTHIA Hose [Antiembolic Hose] [OM.PC] Routine 11/03/16 18:22 Lactulose [Cephulac] 40 gm PO TID 11/03/16 18:30 cefTRIAXone [Rocephin] 1 gm Sodium Chloride 0.9% [Normal Saline] 100 ml IV Q24H 11/04/16 09:00 Multivitamins,Therapeutic [Thera] 1 each PO DAILY Rifaximin [Xifaxan] 550 mg PO BID 11/04/16 11:00 Magnesium Sulfate/Water [Magnesium Sulfate 2 GM in Water 50 ML] 2 gm Premix Bag 1 bag IV ONETIME - Plan Plan:: Impression: Hepatic Encephalopathy, ammonia level 171-->150 Non compliance Anemia Chronic disease Diabetes Mellitus with hyperglycemia UTI Mg deficiency Chronic GERD Hepatic encephalopathy History of TIPS Plan IV ATBs. MS tele Resume Lactulose, Xifaxan SS Novolog SW/PT/OT DVT/GI prophylaxis DC 24-48 hours
[2016-11-04] MEDS: cefTRIAXone 1 GM in Sodium Chloride 0.9% 100 ML IV SCH (19:22)
[2016-11-05] MEDS: Pantoprazole 40 MG Tab.CR PO SCH (06:36)
[2016-11-05] MEDS: Insulin Aspart 100 Units/ML 3 ML Pen SUBCUT SCH ×2 (06:37→11:21)
[2016-11-05] MEDS: Multivitamins,Therapeutic Tab PO SCH (08:24)
[2016-11-05] MEDS: Lactulose Soln 10 GM/15 ML 30 ML UD Cup PO SCH (08:24)
[2016-11-05] MEDS: Spironolactone 25 MG Tab PO SCH (08:25)
[2016-11-05] MEDS: Rifaximin 550 MG Tab PO SCH (08:25)
--- NOTE | 2016-11-05 08:33 | CR ---
Chest: Portable view of the chest was obtained. Comparison: Previous chest x-ray of 09/20/16. Heart is enlarged. Tortuous thoracic aorta is seen. Pulmonary vessels are felt to be slightly congested. Lungs otherwise are clear. Bony structures are grossly intact. Impression: 1. Cardiomegaly and mild pulmonary vascular congestion. Diagnostic code #3
--- NOTE | 2016-11-05 09:35 | PCM.DCSUM1 ---
<Elmira Kamara M - Last Filed: 11/05/16 13:20> Discharge Summary - Hospital Course Free Text/Narrative:: 56 year old male with increasing confusion, forgot on several occasions to take his lactulose, presents with an ammonia level, 171. Has had multiple ED presentations with elevated ammonia level in the 150s. He is able to participate in the history but can only recall recent events. Reportedly sees Dr Hernandez in [place], but for one or more reasons, has not followed up since June 2016 in spite of scheduled appointments. Lactulose 40 gm and insulin were given in the ED. The patient will be admitted to the ICU for acute confusion. Patient was started on erythromycin and restarted on lactulose for which he is noncompliant with taking. Ammonia level came down to 97 and 76 on day of discharge. Confusion cleared, VSS. He was transfered to medical floor status. Electrolytes were supplemented as needed and followed. Continued to do well, tolerating diet, ambulating- working with PT/OT. He will be discharged home today with follow up with Family Practice to establish local care within 1 week and f/up with KEY[facility] Lockett in [place] within 2-3 weeks of discharge. Cont on usual home dose of metformin for his DM. Cont with lactulose, xifaxan and other home medications as prior to admission. - Discharge Data Discharge Date: 11/05/16 (admit date 11/02/16) Discharge Disposition: Home, Self-Care 01 Condition: Fair - Patient Summary/Data Operative Procedure(s) Performed: None Complications: None Consults: Consultations 11/04/16 20:06 Consult to Second Operator [CONS] Routine Labs Pending at D/C: None Recommended Follow-up Testing/Procedures: Follow up with/establish care with PCP at [facility] in one week. Follow up with KEYSHA Lockett in 2-3 weeks Follow dietary recommendations per dietitian discussion Set phone alarm to remember to take lactulose Planned Operative Procedure(s) after DC: None Hospital Course: As above - Patient Instructions Diet: Heart Healthy Diet, Low Sodium Activity: As Tolerated Showering/Bathing: May Shower Notify Provider of: Fever, Increased Pain, Swelling and Redness, Nausea and/or Vomiting - Discharge Plan Prescriptions/Med Rec: Lactulose [Cephulac] 40 gm PO TID #1 bottle Home Medications: Home Meds Pantoprazole [Protonix] 40 mg PO ACBREAKFAST #30 tab.cr 12/08/15 [Rx] Spironolactone 50 mg PO BID 03/03/16 [History] Rifaximin [Xifaxan] 550 mg PO BID 06/13/16 [History] metFORMIN [Glucophage] 850 mg PO BID 06/13/16 [History] Lactulose [Cephulac] 40 gm PO TID #1 bottle 11/05/16 [Rx] Multivitamins,Therapeutic [Thera] 1 each PO DAILY tablet 11/05/16 [Rx] Patient Handouts: Hepatic Encephalopathy Forms: ED Department Discharge Referrals: PCP,None [Primary Care Provider] - (Please see Dr. Terrell at [facility] in [place] on Saturday November 12, 2016 at 12 noon. Please check in on the first floor of the clinic by coming in the east doors at 11:[address]. [address] Hernandez at 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 in [place].) - Discharge Summary/Plan Comment DC Time >30 min.: Yes (40 min) - General Info Date of Service: 11/05/16 Admission Dx/Problem (Free Text: Admission Diagnosis/Problem Admission Diagnosis/Problem Hepatic encephalopathy Functional Status: Reports: pain controlled, tolerating diet, ambulating, urinating. Denies: new symptoms - Review of Systems General: Reports: No Symptoms HEENT: Reports: no symptoms Pulmonary: Reports: no symptoms Cardiovascular: Reports: No Symptoms Gastrointestinal: Reports: No symptoms Genitourinary: Reports: no symptoms Musculoskeletal: Reports: no symptoms Skin: Reports: no symptoms Neurological: Reports: No Symptoms. Denies: Confusion (resolved) Psychiatric: Reports: no symptoms, confusion (resolved) - Patient Data Vitals - Most Recent: Last Vital Signs Temp 98.6 F 11/05/16 07:56 Pulse 81 11/05/16 07:56 Resp 24 H 11/05/16 07:56 BP 124/62 11/05/16 07:56 Pulse Ox 97 11/05/16 07:56 Weight - Most Recent: 115.167 kg I&O - Last 24 hours: Intake & Output 11/04/16 11/05/16 11/05/16 22:59 06:59 14:59 Intake Total 1160 700 Output Total 3 Balance 1160 697 Lab Results - Last 24 hrs: Laboratory Results - last 24 hr 11/04/16 11/04/16 11/04/16 Range/Units 11:44 17:09 21:23 POC Glucose 332 H 221 H 242 H (70-105) mg/dL 11/05/16 Range/Units 06:35 POC Glucose 190 H (70-105) mg/dL Med Orders - Current: Current Medications Erythromycin (Jed-Tab) 250 mg PO Q6H [facility] Last Admin: 11/05/16 08:25 Dose: 250 mg Ceftriaxone Sodium 1 gm/ (Sodium Chloride) 100 mls @ 200 mls/hr IV Q24H [facility] Last Admin: 11/04/16 19:22 Dose: 200 mls/hr Insulin Aspart (Novolog) 0 unit SUBCUT QIDACANDBED [facility] PRN Reason: Protocol Last Admin: 11/05/16 06:37 Dose: 2 units Lactulose (Cephulac) 40 gm PO TID [facility] Last Admin: 11/05/16 08:24 Dose: 40 gm Multivitamins (Thera) 1 each PO DAILY [facility] Last Admin: 11/05/16 08:24 Dose: 1 each Pantoprazole Sodium (Protonix) 40 mg PO DAILY@0700 [facility] Last Admin: 11/05/16 06:36 Dose: 40 mg Rifaximin (Xifaxan) 550 mg PO BID [facility] Last Admin: 11/05/16 08:25 Dose: 550 mg Sodium Chloride (Saline Flush) 10 ml FLUSH ASDIRECTED PRN PRN Reason: Keep Vein Open Spironolactone (Aldactone) 50 mg PO DAILY [facility] Last Admin: 11/05/16 08:25 Dose: 50 mg Discontinued Medications Erythromycin (Jed-Tab) 250 mg PO Q6H [facility] Last Admin: 11/03/16 07:40 Dose: Not Given Sodium Chloride (Normal Saline) 1,000 mls @ 100 mls/hr IV ONETIME ONE Stop: 11/03/16 04:49 Last Admin: 11/02/16 19:54 Dose: 100 mls/hr Magnesium Sulfate 2 gm/ Premix 50 mls @ 25 mls/hr IV ONETIME ONE Stop: 11/03/16 20:16 Last Admin: 11/03/16 18:33 Dose: 25 mls/hr Magnesium Sulfate 2 gm/ Premix 50 mls @ 25 mls/hr IV ONETIME ONE Stop: 11/04/16 12:59 Last Admin: 11/04/16 11:47 Dose: 25 mls/hr Insulin Human Regular (Humulin R) 5 unit SUBCUT ONETIME ONE Stop: 11/02/16 20:08 Last Admin: 11/02/16 20:57 Dose: 5 units Lactulose (Cephulac) 40 gm PO ONETIME ONE Stop: 11/02/16 20:08 Last Admin: 11/02/16 20:55 Dose: 40 gm Lactulose (Cephulac) 40 gm PO TID [facility] Last Admin: 11/03/16 14:26 Dose: 40 gm Rifaximin (Xifaxan) 550 mg PO BID [facility] Last Admin: 11/03/16 21:44 Dose: Not Given Sodium Chloride (Saline Flush) 10 ml FLUSH ASDIRECTED PRN PRN Reason: Keep Vein Open Last Admin: 11/02/16 19:54 Dose: 10 ml - Exam Quality Assessment: Reports: DVT prophylaxis General: Reports: alert, oriented, cooperative, no acute distress HEENT: Reports: Pupils equal, Pupils reactive, EOMI, Mucous membr. moist/pink Neck: Reports: supple Lungs: Reports: Clear to auscultation, Normal respiratory effort, Decreased breath sounds (to bases) Cardiovascular: Reports: Regular Rate, Regular Rhythm Abdomen: Reports: bowel sounds present, soft, no tenderness, distension (mild) (Male) Exam: Deferred Rectal (Males) Exam: Deferred Extremities: Reports: edema (1+ bilat LE/ankles/pedal) Skin: Reports: warm, dry, intact Neurological: Reports: no new focal deficit Psy/Mental Status: Reports: alert, normal affect, normal mood *Q Meaningful Use (DIS) - VTE *Q VTE Criteria *Q: - Stroke *Q Stroke Criteria *Q: - AMI *Q AMI Criteria *Q: <Shannan Nuno - Last Filed: 11/06/16 13:41> Discharge Summary - Hospital Course Free Text/Narrative:: Dietary consult was completed before DC; follow up with GI as well as PCP at [facility] as scheduled. - Patient Summary/Data Consults: Consultations 11/04/16 20:06 Consult to Second Operator [CONS] Routine - Patient Data Vitals - Most Recent: Last Vital Signs Temp 36.9 C 11/05/16 11:32 Pulse 82 11/05/16 11:32 Resp 20 11/05/16 11:32 BP 119/50 L 11/05/16 11:32 Pulse Ox 99 11/05/16 11:32 Med Orders - Current: Current Medications Discontinued Medications Erythromycin (Jed-Tab) 250 mg PO Q6H [facility] Last Admin: 11/03/16 07:40 Dose: Not Given Erythromycin (Jed-Tab) 250 mg PO Q6H [facility] Last Admin: 11/05/16 08:25 Dose: 250 mg Sodium Chloride (Normal Saline) 1,000 mls @ 100 mls/hr IV ONETIME ONE Stop: 11/03/16 04:49 Last Admin: 11/02/16 19:54 Dose: 100 mls/hr Magnesium Sulfate 2 gm/ Premix 50 mls @ 25 mls/hr IV ONETIME ONE Stop: 11/03/16 20:16 Last Admin: 11/03/16 18:33 Dose: 25 mls/hr Ceftriaxone Sodium 1 gm/ (Sodium Chloride) 100 mls @ 200 mls/hr IV Q24H [facility] Last Admin: 11/04/16 19:22 Dose: 200 mls/hr Magnesium Sulfate 2 gm/ Premix 50 mls @ 25 mls/hr IV ONETIME ONE Stop: 11/04/16 12:59 Last Admin: 11/04/16 11:47 Dose: 25 mls/hr Insulin Aspart (Novolog) 0 unit SUBCUT QIDACANDBED [facility] PRN Reason: Protocol Last Admin: 11/05/16 11:21 Dose: 6 units Insulin Human Regular (Humulin R) 5 unit SUBCUT ONETIME ONE Stop: 11/02/16 20:08 Last Admin: 11/02/16 20:57 Dose: 5 units Lactulose (Cephulac) 40 gm PO ONETIME ONE Stop: 11/02/16 20:08 Last Admin: 11/02/16 20:55 Dose: 40 gm Lactulose (Cephulac) 40 gm PO TID [facility] Last Admin: 11/03/16 14:26 Dose: 40 gm Lactulose (Cephulac) 40 gm PO TID [facility] Last Admin: 11/05/16 08:24 Dose: 40 gm Multivitamins (Thera) 1 each PO DAILY [facility] Last Admin: 11/05/16 08:24 Dose: 1 each Pantoprazole Sodium (Protonix) 40 mg PO DAILY@0700 [facility] Last Admin: 11/05/16 06:36 Dose: 40 mg Rifaximin (Xifaxan) 550 mg PO BID [facility] Last Admin: 11/03/16 21:44 Dose: Not Given Rifaximin (Xifaxan) 550 mg PO BID [facility] Last Admin: 11/05/16 08:25 Dose: 550 mg Sodium Chloride (Saline Flush) 10 ml FLUSH ASDIRECTED PRN PRN Reason: Keep Vein Open Last Admin: 11/02/16 19:54 Dose: 10 ml Sodium Chloride (Saline Flush) 10 ml FLUSH ASDIRECTED PRN PRN Reason: Keep Vein Open Spironolactone (Aldactone) 50 mg PO DAILY [facility] Last Admin: 11/05/16 08:25 Dose: 50 mg *Q Meaningful Use (DIS) - VTE *Q VTE Criteria *Q: - Stroke *Q Stroke Criteria *Q: - AMI *Q AMI Criteria *Q:
[2016-11-05 12:11] VITALS: BP 119/50
== END 2016-11-05 14:00 | disposition home or self-care (01) | DRG 423 ==
LOC: JD.ED 16:06 → JD.ICU 20:59 → JD.MS 11-03 15:33
PROVIDERS: ADMIT Internal Medicine Cardiovascular Disease; ATTEND Internal Medicine Cardiovascular Disease
DX: E72.20 Disorder of urea cycle metabolism, unspecified (principal); E83.42 Hypomagnesemia; E11.65 Type 2 diabetes mellitus with hyperglycemia; D61.818 Other pancytopenia; Z79.84 Long term (current) use of oral hypoglycemic drugs; K72.90 Hepatic failure, unspecified without coma; Z91.19 Patient's noncompliance with other medical treatment and regimen; D63.8 Anemia in other chronic diseases classified elsewhere; N39.0 Urinary tract infection, site not specified; K21.9 Gastro-esophageal reflux disease without esophagitis; K70.30 Alcoholic cirrhosis of liver without ascites; B17.8 Other specified acute viral hepatitis; F10.21 Alcohol dependence, in remission; R41.82 Altered mental status, unspecified; I10 Essential (primary) hypertension; E66.9 Obesity, unspecified; Z68.30 Body mass index [BMI] 30.0-30.9, adult; Z87.891 Personal history of nicotine dependence; Z79.899 Other long term (current) drug therapy
CPT/HCPCS: 36415; 71010; 71010-26; 80048; 80053; 80306; 81001; 82140; 82962; 83735; 83880; 85025; 85610; 85730; 85732; 87804; 93005; 96360; 96361; 96372; 99285; 99285-25; A9270-GY; G0480; J0696; J1815-GY; J1817; J3475; J7030; J7040; J7050

== ENCOUNTER 2017-02-20 14:08 | Inpatient (IN) | payer BC ==
[2017-02-20] MEDS ORDERED: Sodium Chloride 0.9% 10 ML Syringe FLUSH PRN (14:43)
[2017-02-20] MEDS: Sodium Chloride 0.9% 1,000 ML IV SCH (15:06)
--- NOTE | 2017-02-20 15:24 | EDM.PDOC ---
ED HPI GENERAL MEDICAL PROBLEM - General Chief Complaint: Diabetic Complaint Stated Complaint: SHAKY, CONFUSED Time Seen by Provider: 02/20/17 14:21 Source of Information: Reports: Patient, Family History Limitations: Reports: Altered Mental Status - History of Present Illness INITIAL COMMENTS - FREE TEXT/NARRATIVE: The patient presents with confusion. He is diabetic and this morning he was confused. He fell at his home and he has some ecchymosis to the left upper abdomen. He says he did not hit his head. He denies pain. He has no headache , neck pain, fever, cough, chest pain, abdominal pain, shortness of breath, nausea or vomiting. He has a history of nonalcoholic cirrosis of the liver. He has had hepatic encephalopathy before. His blood sugar was normal here. Onset: Gradual Duration: Day(s): Severity: Moderate Improves with: Reports: None Worsens with: Reports: None Associated Symptoms: Reports: Confusion, Fever/Chills. Denies: Cough, Headaches , Nausea/Vomiting, Shortness of Breath - Related Data Allergies Allergy/AdvReac Type Severity Reaction Status Date / Time No Known Allergies Allergy Verified 11/02/16 16:40 Home Meds: Home Meds Pantoprazole [ProTONIX] 40 mg PO ACBREAKFAST #30 tab.cr 12/08/15 [Rx] Spironolactone 50 mg PO BID 03/03/16 [History] Rifaximin [Xifaxan] 550 mg PO BID 06/13/16 [History] metFORMIN [Glucophage] 850 mg PO BID 06/13/16 [History] Lactulose [Cephulac] 40 gm PO TID #1 bottle 11/05/16 [Rx] Past Medical History Cardiovascular History: Reports: Hypertension Gastrointestinal History: Reports: Cirrhosis, GERD, GI Bleed Other Gastrointestinal History: liver failure;stomach bleed Neurological History: Reports: Other (See Below) Other Neuro History: hepatic encephalopathy Psychiatric History: Reports: Addiction Other Psychiatric History: recovered alcoholic Endocrine/Metabolic History: Reports: Diabetes, Type II, Obesity/BMI 30+ Hematologic History: Reports: Anemia, Blood Transfusion(s) Dermatologic History: Reports: Cellulitis, Other (See Below) Other Dermatologic History: 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 History of cellulitis to both legs. - Infectious Disease History Infectious Disease History: Reports: Hepatitis non A,B,C, Measles, MRSA - Past Surgical History GI Surgical History: Reports: Other (See Below) Musculoskeletal Surgical History: Reports: Other (See Below) Social & Family History - Family History Family Medical History: Noncontributory - Tobacco Use Smoking Status *Q: Never Smoker Years of Tobacco use: 25 Packs/Tins Daily: 0.5 Used Tobacco, but Quit: Yes Month Tobacco Last Used: 20 years ago Second Hand Smoke Exposure: No - Caffeine Use Caffeine Use: Reports: Coffee, Soda, Tea - Alcohol Use Days Per Week of Alcohol Use: 0 - Recreational Drug Use Recreational Drug Use: No - Living Situation & Occupation Living situation: Reports: , with Family Occupation: Employed ED ROS GENERAL - Review of Systems Review Of Systems: See Below Constitutional: Reports: Chills. Denies: Fever HEENT: Reports: No Symptoms Respiratory: Reports: No Symptoms Cardiovascular: Reports: No Symptoms Endocrine: Reports: No Symptoms GI/Abdominal: Reports: No Symptoms : Reports: No Symptoms Musculoskeletal: Reports: No Symptoms Skin: Reports: No Symptoms Neurological: Reports: Confusion. Denies: Headache Psychiatric: Reports: No Symptoms ED EXAM GENERAL NO PERIP PULSE - Physical Exam Exam: See Below Exam Limited By: No Limitations General Appearance: Alert, No Apparent Distress Ears: Normal External Exam Nose: Normal Inspection Head: Atraumatic, Normocephalic Neck: Normal Inspection Respiratory/Chest: No Respiratory Distress, Lungs Clear, Normal Breath Sounds Cardiovascular: Regular Rate, Rhythm, No Edema, No Murmur GI/Abdominal: Soft, Non-Tender, No Organomegaly, No Mass, Other (Ecchymosis to the left upper abdomen) EKG INTERPRETATION EKG Date: 02/20/17 Time: 14:54 Rhythm: NSR Rate (Beats/Min): 72 [place]: LAD-Left [place] Deviation P-Wave: Present QRS: Normal ST-T: Normal QT: Normal EKG Interpretation Comments: PAC Course - Vital Signs Last Recorded V/S: Last Vital Signs Temp 97.3 F 02/20/17 14:27 Pulse 74 02/20/17 14:27 Resp 20 02/20/17 14:27 BP 128/70 02/20/17 14:27 Pulse Ox 99 02/20/17 14:27 - Orders/Labs/Meds Orders: Active Orders 24 hr Category Date Time Status EKG Documentation Completion [RC] STAT Care 02/20/17 14:43 Active Peripheral IV Care [RC] . DIRECTED Care 02/20/17 14:44 Active Head wo Cont [CT] Stat Exams 02/20/17 14:44 Taken Sodium Chloride 0.9% [Normal Saline] 1,000 ml Med 02/20/17 14:45 Active IV ASDIRECTED Sodium Chloride 0.9% [Saline Flush] Med 02/20/17 14:43 Active 10 ml FLUSH ASDIRECTED PRN Peripheral IV Insertion Adult [OM.PC] Stat Oth 02/20/17 14:43 Ordered Medication Orders Sodium Chloride (Normal Saline) 1,000 mls @ 125 mls/hr IV ASDIRECTED DHIRAJ Last Admin: 02/20/17 15:06 Dose: 125 mls/hr Sodium Chloride (Saline Flush) 10 ml FLUSH ASDIRECTED PRN PRN Reason: Keep Vein Open Last Admin: 02/20/17 15:07 Dose: 10 ml Labs: Laboratory Tests 02/20/17 02/20/17 02/20/17 Range/Units 14:25 15:10 15:10 WBC 2.33 L* (4.23-9.07) K/mm3 RBC 2.77 L (4.63-6.08) M/mm3 Hgb 9.0 L (13.7-17.5) gm/L Hct 26.2 L (40.1-51.0) % MCV 94.6 H (79.0-92.2) fl MCH 32.5 H (25.7-32.2) pg MCHC 34.4 (32.2-35.5) g/dl RDW Std Deviation 55.0 H (35.1-43.9) fL Plt Count 49 L (163-337) K/mm3 MPV 9.5 (9.4-12.3) fl Neut % (Auto) 66.5 (34.0-67.9) % Lymph % (Auto) 26.2 (21.8-53.1) % [place] % (Auto) 6.0 (5.3-12.2) % Eos % (Auto) 0.9 (0.8-7.0) Baso % (Auto) 0.4 (0.1-1.2) % Neut # (Auto) 1.55 L (1.78-5.38) K/mm3 Lymph # (Auto) 0.61 L (1.32-3.57) K/mm3 [place] # (Auto) 0.14 L (0.30-0.82) K/mm3 Eos # (Auto) 0.02 L (0.04-0.54) K/mm3 Baso # (Auto) 0.01 (0.01-0.08) K/mm3 Manual Slide Review Abnormal smear Sodium 138 (136-145) mEq/L Potassium 4.3 (3.5-5.1) mEq/L Chloride 109 H (98-107) mEq/L Carbon Dioxide 23 (21-32) mEq/L Anion Gap 10.3 (5-15) BUN 8 (7-18) mg/dL Creatinine 0.9 (0.7-1.3) mg/dL Est Cr Clr Drug Dosing 90.56 mL/min Estimated GFR (MDRD) > 60 (>60) mL/min BUN/Creatinine Ratio 8.9 L (14-18) Glucose 166 H (74-106) mg/dL POC Glucose 178 H (70-105) mg/dL Calcium 8.0 L (8.5-10.1) mg/dL Total Bilirubin 2.4 H (0.2-1.0) mg/dL AST 35 (15-37) U/L ALT 30 (16-63) U/L Alkaline Phosphatase 95 (46-116) U/L Ammonia (11-32) umol/L Troponin I 0.018 (0.00-0.056) ng/mL Total Protein 7.8 (6.4-8.2) g/dl Albumin 2.1 L (3.4-5.0) g/dl Globulin 5.7 gm/dL Albumin/Globulin Ratio 0.4 L (1-2) Lipase 378 (73-393) U/L 02/20/17 Range/Units 15:15 WBC (4.23-9.07) K/mm3 RBC (4.63-6.08) M/mm3 Hgb (13.7-17.5) gm/L Hct (40.1-51.0) % MCV (79.0-92.2) fl MCH (25.7-32.2) pg MCHC (32.2-35.5) g/dl RDW Std Deviation (35.1-43.9) fL Plt Count (163-337) K/mm3 MPV (9.4-12.3) fl Neut % (Auto) (34.0-67.9) % Lymph % (Auto) (21.8-53.1) % [place] % (Auto) (5.3-12.2) % Eos % (Auto) (0.8-7.0) Baso % (Auto) (0.1-1.2) % Neut # (Auto) (1.78-5.38) K/mm3 Lymph # (Auto) (1.32-3.57) K/mm3 [place] # (Auto) (0.30-0.82) K/mm3 Eos # (Auto) (0.04-0.54) K/mm3 Baso # (Auto) (0.01-0.08) K/mm3 Manual Slide Review Sodium (136-145) mEq/L Potassium (3.5-5.1) mEq/L Chloride (98-107) mEq/L Carbon Dioxide (21-32) mEq/L Anion Gap (5-15) BUN (7-18) mg/dL Creatinine (0.7-1.3) mg/dL Est Cr Clr Drug Dosing mL/min Estimated GFR (MDRD) (>60) mL/min BUN/Creatinine Ratio (14-18) Glucose (74-106) mg/dL POC Glucose (70-105) mg/dL Calcium (8.5-10.1) mg/dL Total Bilirubin (0.2-1.0) mg/dL AST (15-37) U/L ALT (16-63) U/L Alkaline Phosphatase (46-116) U/L Ammonia 110 H (11-32) umol/L Troponin I (0.00-0.056) ng/mL Total Protein (6.4-8.2) g/dl Albumin (3.4-5.0) g/dl Globulin gm/dL Albumin/Globulin Ratio (1-2) Lipase (73-393) U/L Meds: Medications Generic Name Dose Route Start Last Admin Trade Name Freq PRN Reason Stop Dose Admin Sodium Chloride 1,000 mls @ 125 mls/hr 02/20/17 14:45 02/20/17 15:06 Normal Saline IV 125 mls/hr ASDIRECTED DHIRAJ Administration Sodium Chloride 10 ml 02/20/17 14:43 02/20/17 15:07 Saline Flush FLUSH 10 ml ASDIRECTED PRN Administration Keep Vein Open Discontinued Medications Generic Name Dose Route Start Last Admin Trade Name Lavern PRN Reason Stop Dose Admin Lactulose 20 gm 02/20/17 16:49 Cephulac PO 02/20/17 16:50 ONETIME ONE - Re-Assessments/Exams Free Text/Narrative Re-Assessment/Exam: 02/20/17 15:25 I have ordered an IV NS at 125mL/hr, CT of his head, EKG and labs. 02/20/17 16:41 His EKG shows a NSR with no acute changes. His CT looks good. He has pancytopenia with a low WBC of 2.33, Hgb of 9, and platelets of 49. He has been low before but not that low. His glucose was elevated at 166. His ammonia level is elevated at 110. His troponin was negative. His lipase was normal. 02/20/17 16:57 I ordered lactulose 20grams. I called Dr Nuno and she agreed to the admission. Departure - Departure Time of Disposition: 17:00 Disposition: Admitted As Inpatient 65 Condition: Fair Clinical Impression: Diabetes mellitus type 2, Cirrhosis of liver, Pancytopenia, Hyperammonemia, Hepatic encephalopathy - Discharge Information Forms: ED Department Discharge - My Orders Last 24 Hours: My Active Orders 02/20/17 14:43 EKG Documentation Completion [RC] STAT Sodium Chloride 0.9% [Saline Flush] 10 ml FLUSH ASDIRECTED PRN Peripheral IV Insertion Adult [OM.PC] Stat 02/20/17 14:44 Peripheral IV Care [RC] . DIRECTED Head wo Cont [CT] Stat 02/20/17 14:45 Sodium Chloride 0.9% [Normal Saline] 1,000 ml IV ASDIRECTED - Assessment/Plan Last 24 Hours: My Active Orders 02/20/17 14:43 EKG Documentation Completion [RC] STAT Sodium Chloride 0.9% [Saline Flush] 10 ml FLUSH ASDIRECTED PRN Peripheral IV Insertion Adult [OM.PC] Stat 02/20/17 14:44 Peripheral IV Care [RC] . DIRECTED Head wo Cont [CT] Stat 02/20/17 14:45 Sodium Chloride 0.9% [Normal Saline] 1,000 ml IV ASDIRECTED
[2017-02-20] MEDS ORDERED: Lactulose Soln 10 GM/15 ML 30 ML UD Cup PO ONE (16:49)
--- NOTE | 2017-02-20 18:16 | PCM.HP ---
H&P History of Present Illness - General Date of Service: 02/20/17 Admit Problem/Dx: Admission Diagnosis/Problem Admission Diagnosis/Problem Hepatic encephalopathy Source of Information: Patient, Provider History Limitations: Reports: No Limitations - History of Present Illness Initial Comments - Free Text/Narative: 56 year old male with a history of hepatic encephalopathy, presents with increasing confusion of unclear etiology. He has been non complainant in the past. An infectious work up will be performed during his hospitalization. May require treatment for SBP, will follow. He complains of chills, but denies fever; there has been no change in appetite. He denies cough, CP, SOB, nausea or vomiting. Onset of Symptoms: Reports: Gradual Duration of Symptoms: Reports: Day(s):, Getting Worse Location: Reports: Generalized Quality: Reports: Same as Previous Episode Severity: Moderate Improves with: Reports: Medication Worsens with: Reports: None Associated Symptoms: Reports: Confusion, Malaise, Weakness - Related Data Allergies/Adverse Reactions: Allergies Allergy/AdvReac Type Severity Reaction Status Date / Time No Known Allergies Allergy Verified 02/20/17 18:31 Home Medications: Home Meds Pantoprazole [ProTONIX] 40 mg PO ACBREAKFAST #30 tab.cr 12/08/15 [Rx] Spironolactone 50 mg PO BID 03/03/16 [History] Rifaximin [Xifaxan] 550 mg PO BID 06/13/16 [History] metFORMIN [Glucophage] 850 mg PO BID 06/13/16 [History] Lactulose [Cephulac] 40 gm PO TID #1 bottle 11/05/16 [Rx] Past Medical History Cardiovascular History: Reports: Hypertension Gastrointestinal History: Reports: Cirrhosis, GERD, GI Bleed Other Gastrointestinal History: liver failure;stomach bleed Neurological History: Reports: Other (See Below) Other Neuro History: hepatic encephalopathy Psychiatric History: Reports: Addiction Other Psychiatric History: recovered alcoholic Endocrine/Metabolic History: Reports: Diabetes, Type II, Obesity/BMI 30+ Hematologic History: Reports: Anemia, Blood Transfusion(s) Dermatologic History: Reports: Cellulitis, Other (See Below) Other Dermatologic History: 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 History of cellulitis to both legs. - Infectious Disease History Infectious Disease History: Reports: Hepatitis non A,B,C, Measles, MRSA - Past Surgical History GI Surgical History: Reports: Other (See Below) Musculoskeletal Surgical History: Reports: Other (See Below) Social & Family History - Family History Family Medical History: Noncontributory - Tobacco Use Smoking Status *Q: Never Smoker Years of Tobacco use: 25 Packs/Tins Daily: 0.5 Used Tobacco, but Quit: Yes Month Tobacco Last Used: 20 years ago Second Hand Smoke Exposure: No - Caffeine Use Caffeine Use: Reports: Coffee, Soda, Tea - Alcohol Use Days Per Week of Alcohol Use: 0 - Recreational Drug Use Recreational Drug Use: No - Living Situation & Occupation Living situation: Reports: , with Family Occupation: Employed H&P Review of Systems - Review of Systems: Review Of Systems: See Below General: Reports: Chills, Malaise, Weakness HEENT: Reports: No Symptoms Pulmonary: Reports: No Symptoms Cardiovascular: Reports: No Symptoms Gastrointestinal: Reports: No Symptoms Genitourinary: Reports: No Symptoms Musculoskeletal: Reports: No Symptoms Skin: Reports: No Symptoms Psychiatric: Reports: No Symptoms Exam - Exam Exam: See Below - Vital Signs Vital Signs: Last Vital Signs Temp 36.6 C 02/20/17 18:09 Pulse 75 02/20/17 18:09 Resp 16 02/20/17 18:09 BP 120/60 02/20/17 18:09 Pulse Ox 97 02/20/17 18:09 Weight: 113.398 kg - Exam Quality Assessment: DVT Prophylaxis General: Alert, Oriented, Cooperative, Mild Distress HEENT: Nares Patent, Normal Nasal Septum, Posterior Pharynx Clear, Pupils Equal , Pupils Reactive, PERRLA Neck: Supple, Trachea Midline Lungs: Decreased Breath Sounds, Rhonchi Cardiovascular: Regular Rate, Regular Rhythm Abdomen: Normal Bowel Sounds, Soft (Male) Exam: Deferred Rectal (Males) Exam: Deferred Back Exam: Normal Inspection Extremities: Normal Pulses Skin: Warm Neurological: Cranial Nerves Intact Neuro Extensive - Mental Status: Alert, Oriented x3 Neuro Extensive - Motor, Sensory, Reflexes: CN II-XII Intact Psychiatric: Alert, Normal Affect, Normal Mood - Patient Data Result Diagrams: 02/20/17 15:10 02/20/17 15:10 *Q Meaningful Use (ADM) - VTE *Q VTE Criteria *Q: - Stroke *Q Stroke Criteria *Q: - AMI *Q AMI Criteria *Q: - Problem List (1) GERD (gastroesophageal reflux disease) SNOMED Code(s): 899239434 ICD Code: K21.9 - GASTRO-ESOPHAGEAL REFLUX DISEASE WITHOUT ESOPHAGITIS Status: Acute Current Visit: Yes (2) Hypertension SNOMED Code(s): 91720835 ICD Code: I10 - ESSENTIAL (PRIMARY) HYPERTENSION Status: Acute Current Visit: Yes (3) Hepatitis non A non B SNOMED Code(s): 950595202 ICD Code: B17.8 - OTHER SPECIFIED ACUTE VIRAL HEPATITIS Status: Acute Current Visit: Yes (4) Cirrhosis of liver SNOMED Code(s): 72581477 ICD Code: K74.60 - UNSPECIFIED CIRRHOSIS OF LIVER Status: Acute Current Visit: Yes (5) Hepatic encephalopathy SNOMED Code(s): 57093538 ICD Code: K72.90 - HEPATIC FAILURE, UNSPECIFIED WITHOUT COMA Status: Acute Current Visit: Yes (6) Serum ammonia increased SNOMED Code(s): 4543733 ICD Code: E72.20 - DISORDER OF UREA CYCLE METABOLISM, UNSPECIFIED Status: Acute Current Visit: Yes (7) Diabetes mellitus type 2 SNOMED Code(s): 81419701 ICD Code: E11.9 - TYPE 2 DIABETES MELLITUS WITHOUT COMPLICATIONS Status: Chronic Priority: High Current Visit: Yes (8) Pancytopenia SNOMED Code(s): 156047286 ICD Code: D61.818 - OTHER PANCYTOPENIA Status: Chronic Priority: Medium Current Visit: Yes (9) Cirrhosis of liver with ascites SNOMED Code(s): 57204924, 281681363 ICD Code: K74.60 - UNSPECIFIED CIRRHOSIS OF LIVER Status: Acute Current Visit: No Qualifiers: Hepatic cirrhosis type: unspecified hepatic cirrhosis Qualified Code(s): K74.60 - Unspecified cirrhosis of liver Problem List Initiated/Reviewed/Updated: Yes Orders Last 24hrs: Active Orders 24 hr Category Date Time Status Admission Status [Patient Status] [ADT] Routine ADT 02/20/17 17:52 Active Medication Orders Sodium Chloride (Normal Saline) 1,000 mls @ 125 mls/hr IV ASDIRECTED DHIRAJ Last Admin: 02/20/17 15:06 Dose: 125 mls/hr Sodium Chloride (Saline Flush) 10 ml FLUSH ASDIRECTED PRN PRN Reason: Keep Vein Open Last Admin: 02/20/17 15:07 Dose: 10 ml Assessment/Plan Comment:: Impression: AMS, hepatic encephalopathy Non Alcoholic Liver Cirrhosis Non A, Non B Hepatitis Pancytopenia History of MRSA positive Chronic HTN GERD Diabetes Mellitus type II History of Substance abuse Plan: Increase Lactulose Erythromycin Daily Labs Monitor neuro exam Watch for MS changes Check infection source SW/PT/OT consult Follow up with Dr Sanders/David DVT/GI prophylaxis
[2017-02-20] MEDS ORDERED: Ondansetron 4 MG/2 ML SDV IVPUSH PRN (18:27)
[2017-02-20] MEDS ORDERED: 50% Dextrose in Water 50 ML Syringe IVPUSH PRN (18:32)
[2017-02-20] MEDS: Lactulose Soln 10 GM/15 ML 30 ML UD Cup PO SCH (20:28)
[2017-02-20] MEDS: Simethicone 80 MG Tab.Chew PO PRN (20:29)
[2017-02-20] MEDS: Rifaximin 550 MG Tab PO SCH (20:29)
[2017-02-20] MEDS: Thiamine 100 MG Tab PO SCH (20:29)
[2017-02-20] MEDS: Spironolactone 25 MG Tab PO SCH (20:29)
[2017-02-20] MEDS: Insulin Aspart 100 Units/ML 3 ML Pen SUBCUT SCH (21:57)
[2017-02-21] MEDS: Sodium Chloride 0.9% 1,000 ML IV SCH ×3 (00:04→17:13)
[2017-02-21] MEDS: Pantoprazole 40 MG Tab.CR PO SCH (06:02)
[2017-02-21] MEDS ORDERED: Diphtheria,Pertussis(Acell),Tetanus Vaccine 0.5 ML SDV IM ONE (06:55)
[2017-02-21] MEDS: Lactulose Soln 10 GM/15 ML 30 ML UD Cup PO SCH ×3 (09:18→20:53)
[2017-02-21] MEDS: Spironolactone 25 MG Tab PO SCH ×2 (09:19→20:49)
[2017-02-21] MEDS: Folic Acid 1 MG Tab PO SCH (09:19)
[2017-02-21] MEDS: Rifaximin 550 MG Tab PO SCH ×2 (09:19→20:49)
[2017-02-21] MEDS: Insulin Aspart 100 Units/ML 3 ML Pen SUBCUT SCH ×4 (09:20→21:00)
[2017-02-21] MEDS ORDERED: Magnesium Sulfate/Water 2 GM in Premix Bag 1 BAG IV ONE (09:37)
--- NOTE | 2017-02-21 11:36 | CR ---
Chest: Two views of the chest were obtained. Comparison: Previous chest x-ray of 11/02/16. Heart size appears at the upper limits of normal. Lung markings are diffusely increased. Findings could represent pulmonary vascular congestion. Minimal atelectasis noted within the right lateral costophrenic angle. Bony structures appear within normal limits for the patient's age. Embolization coils are seen within the abdomen on the lateral view. Impression: 1. Diffuse increased lung markings. Mild pulmonary vascular congestion is a possibility. Please correlate. These findings are slightly more prominent than on prior exam. 2. Mild atelectasis within the right lateral costophrenic angle. Diagnostic code #3
[2017-02-21] MEDS: Levofloxacin/Dextrose 5%-Water 750 MG in Premix Bag 1 BAG IV SCH (12:10)
--- NOTE | 2017-02-21 12:40 | PCM.PN ---
- General Info Date of Service: 02/21/17 Functional Status: Reports: tolerating diet, ambulating, urinating - Review of Systems General: Reports: No Symptoms HEENT: Reports: no symptoms Pulmonary: Reports: no symptoms Cardiovascular: Reports: No Symptoms Gastrointestinal: Reports: No symptoms Genitourinary: Reports: no symptoms Musculoskeletal: Reports: no symptoms Skin: Reports: no symptoms Neurological: Reports: No Symptoms Psychiatric: Reports: no symptoms - Patient Data Vitals - most recent: Last Vital Signs Temp 36.9 C 02/21/17 12:07 Pulse 88 02/21/17 12:07 Resp 12 02/21/17 12:07 BP 130/55 L 02/21/17 12:07 Pulse Ox 95 02/21/17 12:07 Weight - most recent: 113.398 kg I&O - last 24 hours: Intake & Output 02/20/17 02/21/17 02/21/17 22:59 06:59 14:59 Intake Total 1837 1200 Output Total 600 Balance 1237 1200 Lab Results last 24 hrs: Laboratory Results - last 24 hr 02/20/17 02/20/17 02/20/17 Range/Units 20:27 21:26 21:30 WBC (4.23-9.07) K/mm3 RBC (4.63-6.08) M/mm3 Hgb (13.7-17.5) gm/L Hct (40.1-51.0) % MCV (79.0-92.2) fl MCH (25.7-32.2) pg MCHC (32.2-35.5) g/dl RDW Std Deviation (35.1-43.9) fL Plt Count (163-337) K/mm3 MPV (9.4-12.3) fl Neut % (Auto) (34.0-67.9) % Lymph % (Auto) (21.8-53.1) % [place] % (Auto) (5.3-12.2) % Eos % (Auto) (0.8-7.0) Baso % (Auto) (0.1-1.2) % Neut # (Auto) (1.78-5.38) K/mm3 Lymph # (Auto) (1.32-3.57) K/mm3 [place] # (Auto) (0.30-0.82) K/mm3 Eos # (Auto) (0.04-0.54) K/mm3 Baso # (Auto) (0.01-0.08) K/mm3 Manual Slide Review PT (8.0-13.0) SECONDS INR Sodium (136-145) mEq/L Potassium (3.5-5.1) mEq/L Chloride (98-107) mEq/L Carbon Dioxide (21-32) mEq/L Anion Gap (5-15) BUN (7-18) mg/dL Creatinine (0.7-1.3) mg/dL Est Cr Clr Drug Dosing mL/min Estimated GFR (MDRD) (>60) mL/min BUN/Creatinine Ratio (14-18) Glucose (74-106) mg/dL POC Glucose 184 H 185 H (70-105) mg/dL Calcium (8.5-10.1) mg/dL Magnesium (1.8-2.4) mg/dl Ammonia (11-32) umol/L C-Reactive Protein (<1.0) mg/dL Urine Color Yellow (Yellow) Urine Appearance Clear (Clear) Urine pH 7.0 (5.0-8.0) Ur Specific [place] 1.025 (1.005-1.030) Urine Protein Negative (Negative) Urine Glucose (UA) Negative (Negative) Urine Ketones Negative (Negative) Urine Occult Blood 1+ H (Negative) Urine Nitrite Negative (Negative) Urine Bilirubin Negative (Negative) Urine Urobilinogen >=8.0 H (0.2-1.0) Ur Leukocyte Esterase Negative (Negative) Urine RBC 0-5 (0-5) /hpf Urine WBC 0-5 (0-5) /hpf Ur Epithelial Cells 0-5 (0-5) /hpf Urine Bacteria Few (FEW) /hpf Urine Mucus Few (FEW) /hpf Mycoplasma pneumon IgM (NEGATIVE) 02/21/17 02/21/17 02/21/17 Range/Units 05:58 05:58 05:58 WBC 2.63 L (4.23-9.07) K/mm3 RBC 2.59 L (4.63-6.08) M/mm3 Hgb 8.4 L (13.7-17.5) gm/L Hct 24.7 L (40.1-51.0) % MCV 95.4 H (79.0-92.2) fl MCH 32.4 H (25.7-32.2) pg MCHC 34.0 (32.2-35.5) g/dl RDW Std Deviation 55.5 H (35.1-43.9) fL Plt Count 44 L (163-337) K/mm3 MPV 9.6 (9.4-12.3) fl Neut % (Auto) 60.0 (34.0-67.9) % Lymph % (Auto) 27.8 (21.8-53.1) % [place] % (Auto) 9.9 (5.3-12.2) % Eos % (Auto) 1.9 (0.8-7.0) Baso % (Auto) 0.4 (0.1-1.2) % Neut # (Auto) 1.58 L (1.78-5.38) K/mm3 Lymph # (Auto) 0.73 L (1.32-3.57) K/mm3 [place] # (Auto) 0.26 L (0.30-0.82) K/mm3 Eos # (Auto) 0.05 (0.04-0.54) K/mm3 Baso # (Auto) 0.01 (0.01-0.08) K/mm3 Manual Slide Review Abnormal smear PT (8.0-13.0) SECONDS INR Sodium 140 (136-145) mEq/L Potassium 3.9 (3.5-5.1) mEq/L Chloride 111 H (98-107) mEq/L Carbon Dioxide 21 (21-32) mEq/L Anion Gap 11.9 (5-15) BUN 9 (7-18) mg/dL Creatinine 0.9 (0.7-1.3) mg/dL Est Cr Clr Drug Dosing 90.56 mL/min Estimated GFR (MDRD) > 60 (>60) mL/min BUN/Creatinine Ratio 10.0 L (14-18) Glucose 165 H (74-106) mg/dL POC Glucose (70-105) mg/dL Calcium 7.7 L (8.5-10.1) mg/dL Magnesium 1.4 L (1.8-2.4) mg/dl Ammonia 56 H (11-32) umol/L C-Reactive Protein 0.8 (<1.0) mg/dL Urine Color (Yellow) Urine Appearance (Clear) Urine pH (5.0-8.0) Ur Specific [place] (1.005-1.030) Urine Protein (Negative) Urine Glucose (UA) (Negative) Urine Ketones (Negative) Urine Occult Blood (Negative) Urine Nitrite (Negative) Urine Bilirubin (Negative) Urine Urobilinogen (0.2-1.0) Ur Leukocyte Esterase (Negative) Urine RBC (0-5) /hpf Urine WBC (0-5) /hpf Ur Epithelial Cells (0-5) /hpf Urine Bacteria (FEW) /hpf Urine Mucus (FEW) /hpf Mycoplasma pneumon IgM Positive H (NEGATIVE) 02/21/17 02/21/17 02/21/17 Range/Units 05:58 06:00 11:20 WBC (4.23-9.07) K/mm3 RBC (4.63-6.08) M/mm3 Hgb (13.7-17.5) gm/L Hct (40.1-51.0) % MCV (79.0-92.2) fl MCH (25.7-32.2) pg MCHC (32.2-35.5) g/dl RDW Std Deviation (35.1-43.9) fL Plt Count (163-337) K/mm3 MPV (9.4-12.3) fl Neut % (Auto) (34.0-67.9) % Lymph % (Auto) (21.8-53.1) % [place] % (Auto) (5.3-12.2) % Eos % (Auto) (0.8-7.0) Baso % (Auto) (0.1-1.2) % Neut # (Auto) (1.78-5.38) K/mm3 Lymph # (Auto) (1.32-3.57) K/mm3 [place] # (Auto) (0.30-0.82) K/mm3 Eos # (Auto) (0.04-0.54) K/mm3 Baso # (Auto) (0.01-0.08) K/mm3 Manual Slide Review PT 14.8 H (8.0-13.0) SECONDS INR 1.33 Sodium (136-145) mEq/L Potassium (3.5-5.1) mEq/L Chloride (98-107) mEq/L Carbon Dioxide (21-32) mEq/L Anion Gap (5-15) BUN (7-18) mg/dL Creatinine (0.7-1.3) mg/dL Est Cr Clr Drug Dosing mL/min Estimated GFR (MDRD) (>60) mL/min BUN/Creatinine Ratio (14-18) Glucose (74-106) mg/dL POC Glucose 160 H 215 H (70-105) mg/dL Calcium (8.5-10.1) mg/dL Magnesium (1.8-2.4) mg/dl Ammonia (11-32) umol/L C-Reactive Protein (<1.0) mg/dL Urine Color (Yellow) Urine Appearance (Clear) Urine pH (5.0-8.0) Ur Specific [place] (1.005-1.030) Urine Protein (Negative) Urine Glucose (UA) (Negative) Urine Ketones (Negative) Urine Occult Blood (Negative) Urine Nitrite (Negative) Urine Bilirubin (Negative) Urine Urobilinogen (0.2-1.0) Ur Leukocyte Esterase (Negative) Urine RBC (0-5) /hpf Urine WBC (0-5) /hpf Ur Epithelial Cells (0-5) /hpf Urine Bacteria (FEW) /hpf Urine Mucus (FEW) /hpf Mycoplasma pneumon IgM (NEGATIVE) Med Orders - Current: Current Medications Dextrose/Water (Dextrose 50% In Water) 50 ml IVPUSH ASDIRECTED PRN PRN Reason: Hypoglycemia Folic Acid (Folic Acid) 1 mg PO DAILY [facility] Last Admin: 02/21/17 09:19 Dose: 1 mg Sodium Chloride (Normal Saline) 1,000 mls @ 125 mls/hr IV ASDIRECTED [facility] Last Admin: 02/21/17 09:18 Dose: 125 mls/hr Levofloxacin/Dextrose 750 mg/ (Premix) 150 mls @ 100 mls/hr IV Q24H [facility] Stop: 02/22/17 12:44 Last Admin: 02/21/17 12:10 Dose: 100 mls/hr Insulin Aspart (Novolog) 0 unit SUBCUT QIDACANDBED [facility] PRN Reason: Protocol Last Admin: 02/21/17 12:10 Dose: 2 unit Lactulose (Cephulac) 60 gm PO TID DHIRAJ Stop: 02/21/17 16:00 Last Admin: 02/21/17 09:18 Dose: 60 gm Lactulose (Cephulac) 40 gm PO TID [facility] Levofloxacin (Levaquin) 750 mg PO DAILY [facility] Ondansetron HCl (Zofran) 4 mg IVPUSH Q8H PRN PRN Reason: Nausea/Vomiting Pantoprazole Sodium (Protonix) 40 mg PO ACBREAKFAST [facility] Last Admin: 02/21/17 06:02 Dose: 40 mg Rifaximin (Xifaxan) 550 mg PO BID [facility] Last Admin: 02/21/17 09:19 Dose: 550 mg Simethicone (Simethicone) 160 mg PO Q8H PRN PRN Reason: Gas Last Admin: 02/20/17 20:29 Dose: 160 mg Sodium Chloride (Saline Flush) 10 ml FLUSH ASDIRECTED PRN PRN Reason: Keep Vein Open Last Admin: 02/20/17 15:07 Dose: 10 ml Spironolactone (Aldactone) 50 mg PO BID [facility] Last Admin: 02/21/17 09:19 Dose: 50 mg Thiamine HCl (Vitamin B-1) 100 mg PO BEDTIME [facility] Last Admin: 02/20/17 20:29 Dose: 100 mg Discontinued Medications Diphtheria/Tetanus/Acell Pertussis (Adacel) 0.5 ml IM .ONCE ONE Stop: 02/21/17 06:56 Erythromycin (Jed-Tab) 250 mg PO Q6HR [facility] Last Admin: 02/21/17 06:02 Dose: 250 mg Magnesium Sulfate 2 gm/ Premix 50 mls @ 25 mls/hr IV ONETIME ONE Stop: 02/21/17 11:36 Last Admin: 02/21/17 10:01 Dose: 25 mls/hr Lactulose (Cephulac) 20 gm PO ONETIME ONE Stop: 02/20/17 16:50 Last Admin: 02/20/17 17:34 Dose: 20 gm - Exam Quality Assessment: supplemental oxygen, DVT prophylaxis, skin breakdown General: alert, cooperative, no acute distress HEENT: Pupils equal, Pupils reactive, EOMI Neck: supple, trachea midline Lungs: Normal respiratory effort, Decreased breath sounds Cardiovascular: Regular Rate, Regular Rhythm Abdomen: bowel sounds present, soft, no tenderness, no distension (Male) Exam: Deferred Back Exam: Normal Inspection Extremities: normal pulses Skin: warm Neurological: no new focal deficit, normal gait, normal speech Psy/Mental Status: alert, normal affect, normal mood - Problem List & Annotations (1) GERD (gastroesophageal reflux disease) SNOMED Code(s): 628670978 Code(s): K21.9 - GASTRO-ESOPHAGEAL REFLUX DISEASE WITHOUT ESOPHAGITIS Status: Acute Current Visit: Yes (2) Hypertension SNOMED Code(s): 67314819 Code(s): I10 - ESSENTIAL (PRIMARY) HYPERTENSION Status: Acute Current Visit: Yes (3) Hepatitis non A non B SNOMED Code(s): 816873982 Code(s): B17.8 - OTHER SPECIFIED ACUTE VIRAL HEPATITIS Status: Acute Current Visit: Yes (4) Cirrhosis of liver SNOMED Code(s): 14707440 Code(s): K74.60 - UNSPECIFIED CIRRHOSIS OF LIVER Status: Acute Current Visit: Yes (5) Hepatic encephalopathy SNOMED Code(s): 01454569 Code(s): K72.90 - HEPATIC FAILURE, UNSPECIFIED WITHOUT COMA Status: Acute Current Visit: Yes (6) Serum ammonia increased SNOMED Code(s): 8894063 Code(s): E72.20 - DISORDER OF UREA CYCLE METABOLISM, UNSPECIFIED Status: Acute Current Visit: Yes (7) Diabetes mellitus type 2 SNOMED Code(s): 48634476 Code(s): E11.9 - TYPE 2 DIABETES MELLITUS WITHOUT COMPLICATIONS Status: Chronic Priority: High Current Visit: Yes (8) Pancytopenia SNOMED Code(s): 445801744 Code(s): D61.818 - OTHER PANCYTOPENIA Status: Chronic Priority: Medium Current Visit: Yes (9) Cirrhosis of liver with ascites SNOMED Code(s): 06791948, 548147144 Code(s): K74.60 - UNSPECIFIED CIRRHOSIS OF LIVER Status: Acute Current Visit: No Qualifiers: Hepatic cirrhosis type: unspecified hepatic cirrhosis Qualified Code(s): K74.60 - Unspecified cirrhosis of liver (10) Mycoplasma pneumonia SNOMED Code(s): 15636260 Code(s): J15.7 - PNEUMONIA DUE TO MYCOPLASMA PNEUMONIAE Status: Acute Current Visit: Yes - Problem List Review Problem List Initiated/Reviewed/Updated: Yes - My Orders Last 24 Hours: My Active Orders 02/20/17 18:21 Activity as Tolerated [RC] .Routine Vital Signs [RC] Q4HR 02/20/17 18:27 Ondansetron [Zofran] 4 mg IVPUSH Q8H PRN 02/20/17 18:32 Blood Glucose Check, Bedside [RC] ,,, Dextrose 50% in Water 50 ml IVPUSH ASDIRECTED PRN 02/20/17 18:37 Antiembolic Devices [RC] QSHIFT Consult to Loading Machine Tool Setter [CONS] Routine CYNTHIA Hose [Antiembolic Hose] [OM.PC] Routine 02/20/17 18:39 Code Status [Resuscitation Status] Routine 02/20/17 20:07 Simethicone 160 mg PO Q8H PRN 02/20/17 21:00 Lactulose [Cephulac] 60 gm PO TID Rifaximin [Xifaxan] 550 mg PO BID Spironolactone [Aldactone] 50 mg PO BID Thiamine [Vitamin B-1] 100 mg PO BEDTIME 02/20/17 22:00 Insulin Aspart [NovoLOG] See Protocol SUBCUT QIDACANDBED 02/21/17 06:00 Pantoprazole [ProTONIX] 40 mg PO ACBREAKFAST 02/21/17 06:56 Vaccines to be Administered [RC] PER UNIT ROUTINE 02/21/17 08:00 Consult to Occupational Therapy [OT Evaluation and Treatment] [CONS] Routine 02/21/17 09:00 Consult to Physical Therapy [PT Evaluation and Treatment] [CONS] Routine Folic Acid 1 mg PO DAILY 02/21/17 11:15 Levofloxacin/Dextrose 5%-Water [Levaquin in D5W 750 MG/150 ML] 750 mg Premix Bag 1 bag IV Q24H 02/21/17 21:00 Lactulose [Cephulac] 40 gm PO TID 02/21/17 Lunch ADA Diabetic [[employer] Diet] [DIET] 02/22/17 05:00 AMMONIA VENOUS [CHEM] DAILY BASIC METABOLIC PANEL,BMP [CHEM] DAILY BILIRUBIN DIRECT [CHEM] Routine BILIRUBIN TOTAL [CHEM] Routine CBC WITH AUTO DIFF [HEME] DAILY CRP [C-REACTIVE PROTEIN] [CHEM] DAILY MAGNESIUM [CHEM] DAILY 02/23/17 05:00 AMMONIA VENOUS [CHEM] DAILY BASIC METABOLIC PANEL,BMP [CHEM] DAILY CBC WITH AUTO DIFF [HEME] DAILY MAGNESIUM [CHEM] DAILY 02/23/17 09:00 Levofloxacin [Levaquin] 750 mg PO DAILY 02/24/17 05:00 AMMONIA VENOUS [CHEM] DAILY BASIC METABOLIC PANEL,BMP [CHEM] DAILY CBC WITH AUTO DIFF [HEME] DAILY MAGNESIUM [CHEM] DAILY - Plan Plan:: Impression: AMS, hepatic encephalopathy-->resolved Mycoplasma PNA-->started on Levoquin, will receive 48 hours of IV the switched to oral antibiotic Non Alcoholic Liver Cirrhosis Non A, Non B Hepatitis Pancytopenia-->improved History of MRSA positive Chronic HTN GERD Diabetes Mellitus type II History of Substance abuse Plan: Increase Lactulose-->resume home dose Erythromycin, stopped; ammonia corrected Daily Labs Monitor neuro exam, DC Check infection source-->see above SW/PT/OT consult Follow up with Dr Sepulveda/David DVT/GI prophylaxis DC on Saturday. 02/23/17 to avoid relapse of encephalopathy; Will need antibiotics at DC.
[2017-02-21] MEDS: Thiamine 100 MG Tab PO SCH (20:49)
[2017-02-22] MEDS: Sodium Chloride 0.9% 1,000 ML IV SCH (00:56)
[2017-02-22] MEDS: Pantoprazole 40 MG Tab.CR PO SCH (06:08)
[2017-02-22] MEDS: Insulin Aspart 100 Units/ML 3 ML Pen SUBCUT SCH ×4 (06:10→22:12)
[2017-02-22] MEDS ORDERED: Magnesium Sulfate/Water 2 GM in Premix Bag 1 BAG IV ONE (08:06)
--- NOTE | 2017-02-22 09:07 | PCM.PN ---
- General Info Date of Service: 02/22/17 Admission Dx/Problem (Free Text): Admission Diagnosis/Problem Admission Diagnosis/Problem Hepatic encephalopathy Subjective Update: Follow Up Functional Status: Reports: pain controlled, tolerating diet, ambulating, urinating. Denies: new symptoms - Review of Systems General: Denies: Fever, Weakness, Fatigue, Malaise HEENT: Reports: no symptoms Pulmonary: Denies: shortness of breath Cardiovascular: Reports: Edema. Denies: Chest Pain Gastrointestinal: Reports: Diarrhea. Denies: Abdominal pain, Nausea, Vomiting Genitourinary: Reports: no symptoms Musculoskeletal: Reports: no symptoms Skin: Denies: cyanosis Neurological: Denies: Confusion, Pre-Existing Deficit, Difficulty Walking, Weakness, Gait Disturbance Psychiatric: Denies: depression, anxiety, agitation, hallucinations Systems Review Comment:: NO overnight or acute issues. He feels better. He has no new complaints. - Patient Data Vitals - most recent: Last Vital Signs Temp 37.3 C 02/22/17 08:17 Pulse 77 02/22/17 08:17 Resp 20 02/22/17 08:17 BP 117/67 02/22/17 08:17 Pulse Ox 95 02/22/17 08:17 Weight - most recent: 128.321 kg I&O - last 24 hours: Intake & Output 02/21/17 02/22/17 02/22/17 22:59 06:59 14:59 Intake Total 2110 3013 Output Total 1600 900 Balance 510 2113 Lab Results last 24 hrs: Laboratory Results - last 24 hr 02/21/17 02/21/17 02/21/17 Range/Units 05:58 11:20 17:05 WBC (4.23-9.07) K/mm3 RBC (4.63-6.08) M/mm3 Hgb (13.7-17.5) gm/L Hct (40.1-51.0) % MCV (79.0-92.2) fl MCH (25.7-32.2) pg MCHC (32.2-35.5) g/dl RDW Std Deviation (35.1-43.9) fL Plt Count (163-337) K/mm3 MPV (9.4-12.3) fl Neut % (Auto) (34.0-67.9) % Lymph % (Auto) (21.8-53.1) % [place] % (Auto) (5.3-12.2) % Eos % (Auto) (0.8-7.0) Baso % (Auto) (0.1-1.2) % Neut # (Auto) (1.78-5.38) K/mm3 Lymph # (Auto) (1.32-3.57) K/mm3 [place] # (Auto) (0.30-0.82) K/mm3 Eos # (Auto) (0.04-0.54) K/mm3 Baso # (Auto) (0.01-0.08) K/mm3 Manual Slide Review PT 14.8 H (8.0-13.0) SECONDS INR 1.33 Sodium (136-145) mEq/L Potassium (3.5-5.1) mEq/L Chloride (98-107) mEq/L Carbon Dioxide (21-32) mEq/L Anion Gap (5-15) BUN (7-18) mg/dL Creatinine (0.7-1.3) mg/dL Est Cr Clr Drug Dosing mL/min Estimated GFR (MDRD) (>60) mL/min BUN/Creatinine Ratio (14-18) Glucose (74-106) mg/dL POC Glucose 215 H 163 H (70-105) mg/dL Calcium (8.5-10.1) mg/dL Magnesium (1.8-2.4) mg/dl Total Bilirubin (0.2-1.0) mg/dL Direct Bilirubin (0.0-0.2) mg/dl Ammonia (11-32) umol/L C-Reactive Protein (<1.0) mg/dL 02/21/17 02/22/17 02/22/17 Range/Units 20:40 06:05 06:05 WBC 3.40 L (4.23-9.07) K/mm3 RBC 2.74 L (4.63-6.08) M/mm3 Hgb 8.7 L (13.7-17.5) gm/L Hct 26.1 L (40.1-51.0) % MCV 95.3 H (79.0-92.2) fl MCH 31.8 (25.7-32.2) pg MCHC 33.3 (32.2-35.5) g/dl RDW Std Deviation 55.0 H (35.1-43.9) fL Plt Count 47 L (163-337) K/mm3 MPV 9.9 (9.4-12.3) fl Neut % (Auto) 60.6 (34.0-67.9) % Lymph % (Auto) 27.9 (21.8-53.1) % [place] % (Auto) 9.4 (5.3-12.2) % Eos % (Auto) 1.5 (0.8-7.0) Baso % (Auto) 0.6 (0.1-1.2) % Neut # (Auto) 2.06 (1.78-5.38) K/mm3 Lymph # (Auto) 0.95 L (1.32-3.57) K/mm3 [place] # (Auto) 0.32 (0.30-0.82) K/mm3 Eos # (Auto) 0.05 (0.04-0.54) K/mm3 Baso # (Auto) 0.02 (0.01-0.08) K/mm3 Manual Slide Review Abnormal smear PT (8.0-13.0) SECONDS INR Sodium (136-145) mEq/L Potassium (3.5-5.1) mEq/L Chloride (98-107) mEq/L Carbon Dioxide (21-32) mEq/L Anion Gap (5-15) BUN (7-18) mg/dL Creatinine (0.7-1.3) mg/dL Est Cr Clr Drug Dosing mL/min Estimated GFR (MDRD) (>60) mL/min BUN/Creatinine Ratio (14-18) Glucose (74-106) mg/dL POC Glucose 185 H (70-105) mg/dL Calcium (8.5-10.1) mg/dL Magnesium (1.8-2.4) mg/dl Total Bilirubin (0.2-1.0) mg/dL Direct Bilirubin (0.0-0.2) mg/dl Ammonia 48 H (11-32) umol/L C-Reactive Protein (<1.0) mg/dL 02/22/17 02/22/17 Range/Units 06:05 06:09 WBC (4.23-9.07) K/mm3 RBC (4.63-6.08) M/mm3 Hgb (13.7-17.5) gm/L Hct (40.1-51.0) % MCV (79.0-92.2) fl MCH (25.7-32.2) pg MCHC (32.2-35.5) g/dl RDW Std Deviation (35.1-43.9) fL Plt Count (163-337) K/mm3 MPV (9.4-12.3) fl Neut % (Auto) (34.0-67.9) % Lymph % (Auto) (21.8-53.1) % [place] % (Auto) (5.3-12.2) % Eos % (Auto) (0.8-7.0) Baso % (Auto) (0.1-1.2) % Neut # (Auto) (1.78-5.38) K/mm3 Lymph # (Auto) (1.32-3.57) K/mm3 [place] # (Auto) (0.30-0.82) K/mm3 Eos # (Auto) (0.04-0.54) K/mm3 Baso # (Auto) (0.01-0.08) K/mm3 Manual Slide Review PT (8.0-13.0) SECONDS INR Sodium 137 (136-145) mEq/L Potassium 3.5 (3.5-5.1) mEq/L Chloride 108 H (98-107) mEq/L Carbon Dioxide 20 L (21-32) mEq/L Anion Gap 12.5 (5-15) BUN 8 (7-18) mg/dL Creatinine 0.9 (0.7-1.3) mg/dL Est Cr Clr Drug Dosing 90.56 mL/min Estimated GFR (MDRD) > 60 (>60) mL/min BUN/Creatinine Ratio 8.9 L (14-18) Glucose 141 H (74-106) mg/dL POC Glucose 135 H (70-105) mg/dL Calcium 7.6 L (8.5-10.1) mg/dL Magnesium 1.2 L (1.8-2.4) mg/dl Total Bilirubin 2.6 H (0.2-1.0) mg/dL Direct Bilirubin 0.80 H (0.0-0.2) mg/dl Ammonia (11-32) umol/L C-Reactive Protein 0.8 (<1.0) mg/dL Med Orders - Current: Current Medications Dextrose/Water (Dextrose 50% In Water) 50 ml IVPUSH ASDIRECTED PRN PRN Reason: Hypoglycemia Folic Acid (Folic Acid) 1 mg PO DAILY [facility] Last Admin: 02/21/17 09:19 Dose: 1 mg Levofloxacin/Dextrose 750 mg/ (Premix) 150 mls @ 100 mls/hr IV Q24H [facility] Stop: 02/22/17 12:44 Last Admin: 02/21/17 12:10 Dose: 100 mls/hr Magnesium Sulfate 2 gm/ Premix 50 mls @ 25 mls/hr IV ONETIME ONE Stop: 02/22/17 10:05 Insulin Aspart (Novolog) 0 unit SUBCUT QIDACANDBED [facility] PRN Reason: Protocol Last Admin: 02/22/17 06:10 Dose: Not Given Lactulose (Cephulac) 40 gm PO TID [facility] Last Admin: 02/21/17 20:53 Dose: 40 gm Levofloxacin (Levaquin) 750 mg PO DAILY [facility] Magnesium Oxide (Magnesium Oxide) 400 mg PO DAILY [facility] Ondansetron HCl (Zofran) 4 mg IVPUSH Q8H PRN PRN Reason: Nausea/Vomiting Pantoprazole Sodium (Protonix) 40 mg PO ACBREAKFAST [facility] Last Admin: 02/22/17 06:08 Dose: 40 mg Rifaximin (Xifaxan) 550 mg PO BID [facility] Last Admin: 02/21/17 20:49 Dose: 550 mg Simethicone (Simethicone) 160 mg PO Q8H PRN PRN Reason: Gas Last Admin: 02/20/17 20:29 Dose: 160 mg Sodium Chloride (Saline Flush) 10 ml FLUSH ASDIRECTED PRN PRN Reason: Keep Vein Open Last Admin: 02/20/17 15:07 Dose: 10 ml Spironolactone (Aldactone) 50 mg PO BID [facility] Last Admin: 02/21/17 20:49 Dose: 50 mg Thiamine HCl (Vitamin B-1) 100 mg PO BEDTIME [facility] Last Admin: 02/21/17 20:49 Dose: 100 mg Discontinued Medications Diphtheria/Tetanus/Acell Pertussis (Adacel) 0.5 ml IM .ONCE ONE Stop: 02/21/17 06:56 Erythromycin (Jed-Tab) 250 mg PO Q6HR [facility] Last Admin: 02/21/17 06:02 Dose: 250 mg Sodium Chloride (Normal Saline) 1,000 mls @ 125 mls/hr IV ASDIRECTED [facility] Last Admin: 02/22/17 00:56 Dose: 125 mls/hr Magnesium Sulfate 2 gm/ Premix 50 mls @ 25 mls/hr IV ONETIME ONE Stop: 02/21/17 11:36 Last Admin: 02/21/17 10:01 Dose: 25 mls/hr Lactulose (Cephulac) 20 gm PO ONETIME ONE Stop: 02/20/17 16:50 Last Admin: 02/20/17 17:34 Dose: 20 gm Lactulose (Cephulac) 60 gm PO TID [facility] Stop: 02/21/17 16:00 Last Admin: 02/21/17 15:19 Dose: 60 gm - Exam General: alert, oriented, cooperative, no acute distress, other (Morbidly Obese) HEENT: Pupils equal, Pupils reactive, EOMI, Mucous membr. moist/pink Neck: supple, trachea midline, no JVD, other (short and thick) Lungs: Normal respiratory effort, Decreased breath sounds Cardiovascular: Regular Rate, Regular Rhythm Abdomen: bowel sounds present, soft, no tenderness, distension (mild) (Male) Exam: Deferred Back Exam: Normal Inspection, Decreased Range of Motion Extremities: normal pulses, no tenderness/swelling, no cyanosis, edema ( bilateral) Peripheral Pulses: 1+: Dorsalis Pedis (L), Dorsalis Pedis (R) Skin: warm Neurological: no new focal deficit Psy/Mental Status: alert, normal affect, normal mood - Problem List Review Problem List Initiated/Reviewed/Updated: Yes - Plan Plan:: Impression: Acute: Mycoplasma PNA - Serology pos - Continue IV Levaquin 750 mg daily 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, Non B Hepatitis - Continue xifaxan, lactulose and aldactone History of MRSA positive Hypmagnesemia - Mg 1.2 - Pharmacy to monitor and replete Resolved: S/p AMS, hepatic encephalopathy Chronic: HTN GERD Pancytopenia Hyperbilirubinemia Diabetes Mellitus type II History of Substance abuse Plan: Patient is clinically stable Continue current treatment Continue PT/OT consult Start daily probiotic Follow up with Dr eSpulveda/Karls after discharge DVT/GI prophylaxis Encourage to ambulate as tolerated Code status: 1 Possible d/c this weekend to avoid relapse of encephalopathy; Will need antibiotics at d/c.
[2017-02-22] MEDS: Lactulose Soln 10 GM/15 ML 30 ML UD Cup PO SCH ×3 (09:32→21:51)
[2017-02-22] MEDS: Spironolactone 25 MG Tab PO SCH ×2 (09:33→21:51)
[2017-02-22] MEDS: Magnesium Oxide 400 MG Tab PO SCH (09:33)
[2017-02-22] MEDS: Folic Acid 1 MG Tab PO SCH (09:33)
[2017-02-22] MEDS: Rifaximin 550 MG Tab PO SCH ×2 (09:33→21:51)
[2017-02-22] MEDS: Levofloxacin/Dextrose 5%-Water 750 MG in Premix Bag 1 BAG IV SCH (12:33)
[2017-02-22] MEDS ORDERED: Metoprolol Tartrate 5 MG/5 ML SDV IVPUSH PRN (16:48)
[2017-02-22] MEDS ORDERED: hydrALAZINE 20 MG/ML SDV IVPUSH PRN (16:48)
[2017-02-22] MEDS: Potassium Chloride 20 MEQ Tab.ER PO SCH ×2 (17:56→21:51)
[2017-02-22] MEDS ORDERED: Bumetanide 1 MG/4 ML MDV IVPUSH ONE (18:00)
[2017-02-22] MEDS: Thiamine 100 MG Tab PO SCH (21:51)
[2017-02-23] MEDS: Bumetanide 1 MG Tab PO SCH ×2 (06:20→13:53)
[2017-02-23] MEDS: Pantoprazole 40 MG Tab.CR PO SCH (06:20)
[2017-02-23] MEDS: Insulin Aspart 100 Units/ML 3 ML Pen SUBCUT SCH ×4 (06:34→21:54)
--- NOTE | 2017-02-23 08:42 | PCM.PN ---
- General Info Date of Service: 02/23/17 Admission Dx/Problem (Free Text): Admission Diagnosis/Problem Admission Diagnosis/Problem Hepatic encephalopathy Subjective Update: Follow Up Functional Status: Reports: pain controlled. Denies: tolerating diet, ambulating, urinating, new symptoms - Review of Systems General: Denies: Fever, Weakness, Fatigue, Malaise, Chills HEENT: Reports: no symptoms Pulmonary: Denies: shortness of breath Cardiovascular: Reports: Edema. Denies: Chest Pain Gastrointestinal: Reports: Diarrhea. Denies: Abdominal pain, Nausea, Vomiting Genitourinary: Reports: no symptoms Musculoskeletal: Reports: no symptoms Skin: Denies: cyanosis, jaundice, rash Neurological: Denies: Confusion, Difficulty Walking, Weakness, Gait Disturbance Psychiatric: Denies: depression, anxiety, agitation, hallucinations Systems Review Comment:: No overnight or acute issues. He slept really good last night. He is alert/ awake and very reasonable this morning. He wants to go home. - Patient Data Vitals - most recent: Last Vital Signs Temp 37.0 C 02/23/17 07:52 Pulse 81 02/23/17 07:52 Resp 15 02/23/17 07:52 BP 124/62 02/23/17 07:52 Pulse Ox 93 L 02/23/17 07:52 Weight - most recent: 127.278 kg I&O - last 24 hours: Intake & Output 02/22/17 02/23/17 02/23/17 22:59 06:59 14:59 Intake Total 1020 800 Output Total 600 Balance 420 800 Lab Results last 24 hrs: Laboratory Results - last 24 hr 02/22/17 02/22/17 02/22/17 Range/Units 11:51 17:50 22:10 WBC (4.23-9.07) K/mm3 RBC (4.63-6.08) M/mm3 Hgb (13.7-17.5) gm/L Hct (40.1-51.0) % MCV (79.0-92.2) fl MCH (25.7-32.2) pg MCHC (32.2-35.5) g/dl RDW Std Deviation (35.1-43.9) fL Plt Count (163-337) K/mm3 MPV (9.4-12.3) fl Neut % (Auto) (34.0-67.9) % Lymph % (Auto) (21.8-53.1) % [place] % (Auto) (5.3-12.2) % Eos % (Auto) (0.8-7.0) Baso % (Auto) (0.1-1.2) % Neut # (Auto) (1.78-5.38) K/mm3 Lymph # (Auto) (1.32-3.57) K/mm3 [place] # (Auto) (0.30-0.82) K/mm3 Eos # (Auto) (0.04-0.54) K/mm3 Baso # (Auto) (0.01-0.08) K/mm3 Manual Slide Review Sodium (136-145) mEq/L Potassium (3.5-5.1) mEq/L Chloride (98-107) mEq/L Carbon Dioxide (21-32) mEq/L Anion Gap (5-15) BUN (7-18) mg/dL Creatinine (0.7-1.3) mg/dL Est Cr Clr Drug Dosing mL/min Estimated GFR (MDRD) (>60) mL/min BUN/Creatinine Ratio (14-18) Glucose (74-106) mg/dL POC Glucose 206 H 197 H 212 H (70-105) mg/dL Calcium (8.5-10.1) mg/dL Magnesium (1.8-2.4) mg/dl Ammonia (11-32) umol/L 02/23/17 02/23/17 02/23/17 Range/Units 06:19 07:30 07:30 WBC 2.51 L (4.23-9.07) K/mm3 RBC 2.61 L (4.63-6.08) M/mm3 Hgb 8.4 L (13.7-17.5) gm/L Hct 24.4 L (40.1-51.0) % MCV 93.5 H (79.0-92.2) fl MCH 32.2 (25.7-32.2) pg MCHC 34.4 (32.2-35.5) g/dl RDW Std Deviation 53.8 H (35.1-43.9) fL Plt Count 42 L (163-337) K/mm3 MPV 9.6 (9.4-12.3) fl Neut % (Auto) 58.9 (34.0-67.9) % Lymph % (Auto) 29.9 (21.8-53.1) % [place] % (Auto) 8.4 (5.3-12.2) % Eos % (Auto) 2.4 (0.8-7.0) Baso % (Auto) 0.4 (0.1-1.2) % Neut # (Auto) 1.48 L (1.78-5.38) K/mm3 Lymph # (Auto) 0.75 L (1.32-3.57) K/mm3 [place] # (Auto) 0.21 L (0.30-0.82) K/mm3 Eos # (Auto) 0.06 (0.04-0.54) K/mm3 Baso # (Auto) 0.01 (0.01-0.08) K/mm3 Manual Slide Review Abnormal smear Sodium (136-145) mEq/L Potassium (3.5-5.1) mEq/L Chloride (98-107) mEq/L Carbon Dioxide (21-32) mEq/L Anion Gap (5-15) BUN (7-18) mg/dL Creatinine (0.7-1.3) mg/dL Est Cr Clr Drug Dosing mL/min Estimated GFR (MDRD) (>60) mL/min BUN/Creatinine Ratio (14-18) Glucose (74-106) mg/dL POC Glucose 134 H (70-105) mg/dL Calcium (8.5-10.1) mg/dL Magnesium (1.8-2.4) mg/dl Ammonia 41 H (11-32) umol/L // Range/Units 07:30 WBC (4.23-9.07) K/mm3 RBC (4.63-6.08) M/mm3 Hgb (13.7-17.5) gm/L Hct (40.1-51.0) % MCV (79.0-92.2) fl MCH (25.7-32.2) pg MCHC (32.2-35.5) g/dl RDW Std Deviation (35.1-43.9) fL Plt Count (163-337) K/mm3 MPV (9.4-12.3) fl Neut % (Auto) (34.0-67.9) % Lymph % (Auto) (21.8-53.1) % [place] % (Auto) (5.3-12.2) % Eos % (Auto) (0.8-7.0) Baso % (Auto) (0.1-1.2) % Neut # (Auto) (1.78-5.38) K/mm3 Lymph # (Auto) (1.32-3.57) K/mm3 [place] # (Auto) (0.30-0.82) K/mm3 Eos # (Auto) (0.04-0.54) K/mm3 Baso # (Auto) (0.01-0.08) K/mm3 Manual Slide Review Sodium 135 L (136-145) mEq/L Potassium 3.7 (3.5-5.1) mEq/L Chloride 107 (98-107) mEq/L Carbon Dioxide 22 (21-32) mEq/L Anion Gap 9.7 (5-15) BUN 7 (7-18) mg/dL Creatinine 0.9 (0.7-1.3) mg/dL Est Cr Clr Drug Dosing 90.56 mL/min Estimated GFR (MDRD) > 60 (>60) mL/min BUN/Creatinine Ratio 7.8 L (14-18) Glucose 128 H (74-106) mg/dL POC Glucose (70-105) mg/dL Calcium 7.7 L (8.5-10.1) mg/dL Magnesium 1.3 L (1.8-2.4) mg/dl Ammonia (11-32) umol/L Med Orders - Current: Current Medications Bumetanide (Bumex) 1 mg PO BIDDIURETIC [facility] Last Admin: 02/23/17 06:20 Dose: 1 mg Dextrose/Water (Dextrose 50% In Water) 50 ml IVPUSH ASDIRECTED PRN PRN Reason: Hypoglycemia Folic Acid (Folic Acid) 1 mg PO DAILY [facility] Last Admin: 02/22/17 09:33 Dose: 1 mg Hydralazine HCl (Apresoline) 20 mg IVPUSH Q4H PRN PRN Reason: Hypertension Magnesium Sulfate 2 gm/ Premix 50 mls @ 25 mls/hr IV Q1H [facility] Stop: 02/23/17 10:44 Insulin Aspart (Novolog) 0 unit SUBCUT QIDACANDBED [facility] PRN Reason: Protocol Last Admin: 02/23/17 06:34 Dose: Not Given Lactulose (Cephulac) 40 gm PO TID [facility] Last Admin: 02/22/17 21:51 Dose: 40 gm Levofloxacin (Levaquin) 750 mg PO DAILY [facility] Magnesium Oxide (Magnesium Oxide) 400 mg PO DAILY [facility] Last Admin: 02/22/17 09:33 Dose: 400 mg Magnesium Sulfate (Pharmacy To Dose - Magnesium Replacement) 1 dose .XX ASDIRECTED [facility] Metoprolol Tartrate (Lopressor) 5 mg IVPUSH Q4H PRN PRN Reason: Tachycardia Ondansetron HCl (Zofran) 4 mg IVPUSH Q8H PRN PRN Reason: Nausea/Vomiting Pantoprazole Sodium (Protonix) 40 mg PO ACBREAKFAST [facility] Last Admin: 02/23/17 06:20 Dose: 40 mg Potassium Chloride (Pharmacy To Dose - Potassium Replacement) 1 dose .XX ASDIRECTED [facility] Rifaximin (Xifaxan) 550 mg PO BID [facility] Last Admin: 02/22/17 21:51 Dose: 550 mg Saccharomyces Boulardii (Florastor) 250 mg PO DAILY [facility] Simethicone (Simethicone) 160 mg PO Q8H PRN PRN Reason: Gas Last Admin: 02/20/17 20:29 Dose: 160 mg Sodium Chloride (Saline Flush) 10 ml FLUSH ASDIRECTED PRN PRN Reason: Keep Vein Open Last Admin: 02/20/17 15:07 Dose: 10 ml Spironolactone (Aldactone) 50 mg PO BID [facility] Last Admin: 02/22/17 21:51 Dose: 50 mg Thiamine HCl (Vitamin B-1) 100 mg PO BEDTIME [facility] Last Admin: 02/22/17 21:51 Dose: 100 mg Discontinued Medications Bumetanide (Bumex) 0.5 mg IVPUSH ONETIME ONE Stop: 02/22/17 18:01 Last Admin: 02/22/17 17:57 Dose: 0.5 mg Diphtheria/Tetanus/Acell Pertussis (Adacel) 0.5 ml IM .ONCE ONE Stop: 02/21/17 06:56 Erythromycin (Jed-Tab) 250 mg PO Q6HR [facility] Last Admin: 02/21/17 06:02 Dose: 250 mg Sodium Chloride (Normal Saline) 1,000 mls @ 125 mls/hr IV ASDIRECTED [facility] Last Admin: 02/22/17 00:56 Dose: 125 mls/hr Magnesium Sulfate 2 gm/ Premix 50 mls @ 25 mls/hr IV ONETIME ONE Stop: 02/21/17 11:36 Last Admin: 02/21/17 10:01 Dose: 25 mls/hr Levofloxacin/Dextrose 750 mg/ (Premix) 150 mls @ 100 mls/hr IV Q24H [facility] Stop: 02/22/17 12:44 Last Admin: 02/22/17 12:33 Dose: 100 mls/hr Magnesium Sulfate 2 gm/ Premix 50 mls @ 25 mls/hr IV ONETIME ONE Stop: 02/22/17 10:05 Last Admin: 02/22/17 09:36 Dose: 25 mls/hr Lactulose (Cephulac) 20 gm PO ONETIME ONE Stop: 02/20/17 16:50 Last Admin: 02/20/17 17:34 Dose: 20 gm Lactulose (Cephulac) 60 gm PO TID [facility] Stop: 02/21/17 16:00 Last Admin: 02/21/17 15:19 Dose: 60 gm Potassium Chloride (Klor-Con M20) 20 meq PO Q3H [facility] Stop: 02/22/17 21:01 Last Admin: 02/22/17 21:51 Dose: 20 meq - Exam General: alert, oriented, cooperative, no acute distress, other (Obese) HEENT: Pupils equal, Pupils reactive, EOMI, Mucous membr. moist/pink Neck: supple, trachea midline, no JVD, no thyromegaly Lungs: Normal respiratory effort, Decreased breath sounds Cardiovascular: Regular Rate, Regular Rhythm Abdomen: bowel sounds present, soft, no tenderness, distension (Male) Exam: Deferred Back Exam: Normal Inspection, Decreased Range of Motion Extremities: normal pulses, no tenderness/swelling, no cyanosis, no calf tenderness, edema Peripheral Pulses: 1+: Dorsalis Pedis (L), Dorsalis Pedis (R) Skin: warm, dry, intact Neurological: no new focal deficit Psy/Mental Status: alert, normal affect, normal mood - Problem List Review Problem List Initiated/Reviewed/Updated: Yes - My Orders Last 24 Hours: My Active Orders 02/22/17 09:09 Consult to Dietary [Consult to Taker Off Hemp Fiber] [CONS] Routine 02/22/17 16:48 Metoprolol Tartrate [Lopressor] 5 mg IVPUSH Q4H PRN hydrALAZINE [Apresoline] 20 mg IVPUSH Q4H PRN 02/22/17 17:00 Magnesium Rep Pharmacy to Dose [Pharmacy to Dose - Magnesium Replacement] 1 dose .XX ASDIRECTED Potassium Rep Pharmacy to Dose [Pharmacy to Dose - Potassium Replacement] 1 dose .XX ASDIRECTED 02/23/17 06:00 Bumetanide [Bumex] 1 mg PO BIDDIURETIC 02/23/17 08:45 Magnesium Sulfate/Water [Magnesium Sulfate 2 GM in Water 50 ML] 2 gm Premix Bag 1 bag IV Q1H 02/23/17 09:00 Saccharomyces Boulardii [Florastor] 250 mg PO DAILY - Plan Plan:: Impression: Acute: Mycoplasma PNA - Serology pos - Continue IV Levaquin 750 mg daily 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, Non B Hepatitis - Continue xifaxan, lactulose and aldactone Hypomagnesemia - Mg 1.2 ---> 1.3 - Pharmacy to monitor and replete Weight Gain - 30 Lbs since October - Started on duiretic Peripheral Edema - [place] and Bumex - Has low protein states Hypoalbuminemia - Dietary consulted for protein intake Resolved: S/p AMS, hepatic encephalopathy Chronic: HTN GERD Pancytopenia, Hgb level stable at 8.4 Hyperbilirubinemia Diabetes Mellitus type II, BS stable History of Substance abuse History of MRSA positive Plan: Patient remains clinically stable Continue current treatment Continue PT/OT consult Follow up with Dr. Sepulveda/David after discharge DVT/GI prophylaxis Encourage to ambulate as tolerated Code status: 1 Possible d/c in am
[2017-02-23] MEDS: Magnesium Sulfate/Water 2 GM in Premix Bag 1 BAG IV SCH ×2 (09:23→11:52)
[2017-02-23] MEDS: Folic Acid 1 MG Tab PO SCH (09:24)
[2017-02-23] MEDS: Saccharomyces Boulardii (Probiotic) 250 MG Cap PO SCH (09:24)
[2017-02-23] MEDS: Spironolactone 25 MG Tab PO SCH ×2 (09:24→21:38)
[2017-02-23] MEDS: Magnesium Oxide 400 MG Tab PO SCH (09:24)
[2017-02-23] MEDS: Rifaximin 550 MG Tab PO SCH ×2 (09:24→21:38)
[2017-02-23] MEDS: Levofloxacin 750 MG Tab PO SCH (09:24)
[2017-02-23] MEDS: Lactulose Soln 10 GM/15 ML 30 ML UD Cup PO SCH ×3 (09:24→21:38)
[2017-02-23] MEDS: Bumetanide 1 MG/4 ML MDV IVPUSH SCH (21:38)
[2017-02-23] MEDS: Thiamine 100 MG Tab PO SCH (21:38)
[2017-02-24] MEDS: Pantoprazole 40 MG Tab.CR PO SCH (07:24)
[2017-02-24] MEDS ORDERED: Magnesium Sulfate/Water 2 GM in Premix Bag 1 BAG IV ONE (08:02)
[2017-02-24] MEDS: Insulin Aspart 100 Units/ML 3 ML Pen SUBCUT SCH ×4 (08:26→21:45)
[2017-02-24] MEDS: Lactulose Soln 10 GM/15 ML 30 ML UD Cup PO SCH ×3 (08:28→21:30)
[2017-02-24] MEDS: Bumetanide 1 MG/4 ML MDV IVPUSH SCH ×2 (08:28→21:31)
[2017-02-24] MEDS: Saccharomyces Boulardii (Probiotic) 250 MG Cap PO SCH (08:28)
[2017-02-24] MEDS: Rifaximin 550 MG Tab PO SCH ×2 (08:29→21:31)
[2017-02-24] MEDS: Levofloxacin 750 MG Tab PO SCH (08:29)
[2017-02-24] MEDS: Spironolactone 25 MG Tab PO SCH ×2 (08:29→21:31)
[2017-02-24] MEDS: Magnesium Oxide 400 MG Tab PO SCH ×2 (08:29→21:31)
[2017-02-24] MEDS: Folic Acid 1 MG Tab PO SCH (08:29)
--- NOTE | 2017-02-24 09:15 | PCM.PN ---
- General Info Date of Service: 02/24/17 Admission Dx/Problem (Free Text): Admission Diagnosis/Problem Admission Diagnosis/Problem Hepatic encephalopathy Subjective Update: Follow Up Functional Status: Reports: pain controlled, tolerating diet, ambulating, urinating, new symptoms (flatulence) - Review of Systems General: Denies: Fever, Weakness, Fatigue, Malaise, Chills HEENT: Reports: no symptoms Pulmonary: Denies: shortness of breath Cardiovascular: Reports: Edema. Denies: Chest Pain, Palpitations, Dyspnea on Exertion Gastrointestinal: Reports: Other (more gassy than usual). Denies: Abdominal pain, Nausea, Vomiting Genitourinary: Reports: no symptoms Musculoskeletal: Reports: no symptoms Skin: Denies: cyanosis, jaundice Neurological: Denies: Confusion, Difficulty Walking, Weakness, Gait Disturbance Psychiatric: Denies: depression, anxiety, agitation, hallucinations Systems Review Comment:: No overnight or acute issues. He feels pretty good. - Patient Data Vitals - most recent: Last Vital Signs Temp 37.1 C 02/24/17 08:28 Pulse 77 02/24/17 08:28 Resp 14 02/24/17 08:28 BP 112/48 L 02/24/17 08:28 Pulse Ox 98 02/24/17 08:28 Weight - most recent: 122.651 kg I&O - last 24 hours: Intake & Output 02/23/17 02/24/17 02/24/17 22:59 06:59 14:59 Intake Total 1320 600 Output Total 2440 2000 Balance -1120 -1400 Lab Results last 24 hrs: Laboratory Results - last 24 hr 02/23/17 02/23/17 02/23/17 Range/Units 11:54 16:36 21:53 WBC (4.23-9.07) K/mm3 RBC (4.63-6.08) M/mm3 Hgb (13.7-17.5) gm/L Hct (40.1-51.0) % MCV (79.0-92.2) fl MCH (25.7-32.2) pg MCHC (32.2-35.5) g/dl RDW Std Deviation (35.1-43.9) fL Plt Count (163-337) K/mm3 MPV (9.4-12.3) fl Neut % (Auto) (34.0-67.9) % Lymph % (Auto) (21.8-53.1) % [place] % (Auto) (5.3-12.2) % Eos % (Auto) (0.8-7.0) Baso % (Auto) (0.1-1.2) % Neut # (Auto) (1.78-5.38) K/mm3 Lymph # (Auto) (1.32-3.57) K/mm3 [place] # (Auto) (0.30-0.82) K/mm3 Eos # (Auto) (0.04-0.54) K/mm3 Baso # (Auto) (0.01-0.08) K/mm3 Manual Slide Review Sodium (136-145) mEq/L Potassium (3.5-5.1) mEq/L Chloride (98-107) mEq/L Carbon Dioxide (21-32) mEq/L Anion Gap (5-15) BUN (7-18) mg/dL Creatinine (0.7-1.3) mg/dL Est Cr Clr Drug Dosing mL/min Estimated GFR (MDRD) (>60) mL/min BUN/Creatinine Ratio (14-18) Glucose (74-106) mg/dL POC Glucose 178 H 181 H 198 H (70-105) mg/dL Calcium (8.5-10.1) mg/dL Magnesium (1.8-2.4) mg/dl Ammonia (11-32) umol/L 02/24/17 02/24/17 02/24/17 Range/Units 06:51 07:00 07:00 WBC 2.78 L (4.23-9.07) K/mm3 RBC 2.63 L (4.63-6.08) M/mm3 Hgb 8.6 L (13.7-17.5) gm/L Hct 24.5 L (40.1-51.0) % MCV 93.2 H (79.0-92.2) fl MCH 32.7 H (25.7-32.2) pg MCHC 35.1 (32.2-35.5) g/dl RDW Std Deviation 53.5 H (35.1-43.9) fL Plt Count 47 L (163-337) K/mm3 MPV 9.9 (9.4-12.3) fl Neut % (Auto) 59.7 (34.0-67.9) % Lymph % (Auto) 27.7 (21.8-53.1) % [place] % (Auto) 10.8 (5.3-12.2) % Eos % (Auto) 1.4 (0.8-7.0) Baso % (Auto) 0.4 (0.1-1.2) % Neut # (Auto) 1.66 L (1.78-5.38) K/mm3 Lymph # (Auto) 0.77 L (1.32-3.57) K/mm3 [place] # (Auto) 0.30 (0.30-0.82) K/mm3 Eos # (Auto) 0.04 (0.04-0.54) K/mm3 Baso # (Auto) 0.01 (0.01-0.08) K/mm3 Manual Slide Review Abnormal smear Sodium (136-145) mEq/L Potassium (3.5-5.1) mEq/L Chloride (98-107) mEq/L Carbon Dioxide (21-32) mEq/L Anion Gap (5-15) BUN (7-18) mg/dL Creatinine (0.7-1.3) mg/dL Est Cr Clr Drug Dosing mL/min Estimated GFR (MDRD) (>60) mL/min BUN/Creatinine Ratio (14-18) Glucose (74-106) mg/dL POC Glucose 170 H (70-105) mg/dL Calcium (8.5-10.1) mg/dL Magnesium (1.8-2.4) mg/dl Ammonia 54 H (11-32) umol/L // Range/Units 07:00 WBC (4.23-9.07) K/mm3 RBC (4.63-6.08) M/mm3 Hgb (13.7-17.5) gm/L Hct (40.1-51.0) % MCV (79.0-92.2) fl MCH (25.7-32.2) pg MCHC (32.2-35.5) g/dl RDW Std Deviation (35.1-43.9) fL Plt Count (163-337) K/mm3 MPV (9.4-12.3) fl Neut % (Auto) (34.0-67.9) % Lymph % (Auto) (21.8-53.1) % [place] % (Auto) (5.3-12.2) % Eos % (Auto) (0.8-7.0) Baso % (Auto) (0.1-1.2) % Neut # (Auto) (1.78-5.38) K/mm3 Lymph # (Auto) (1.32-3.57) K/mm3 [place] # (Auto) (0.30-0.82) K/mm3 Eos # (Auto) (0.04-0.54) K/mm3 Baso # (Auto) (0.01-0.08) K/mm3 Manual Slide Review Sodium 137 (136-145) mEq/L Potassium 3.7 (3.5-5.1) mEq/L Chloride 105 (98-107) mEq/L Carbon Dioxide 23 (21-32) mEq/L Anion Gap 12.7 (5-15) BUN 11 (7-18) mg/dL Creatinine 1.0 (0.7-1.3) mg/dL Est Cr Clr Drug Dosing 81.50 mL/min Estimated GFR (MDRD) > 60 (>60) mL/min BUN/Creatinine Ratio 11.0 L (14-18) Glucose 177 H (74-106) mg/dL POC Glucose (70-105) mg/dL Calcium 7.8 L (8.5-10.1) mg/dL Magnesium 1.4 L (1.8-2.4) mg/dl Ammonia (11-32) umol/L Med Orders - Current: Current Medications Bumetanide (Bumex) 1 mg IVPUSH BID [facility] Last Admin: 02/24/17 08:28 Dose: 1 mg Dextrose/Water (Dextrose 50% In Water) 50 ml IVPUSH ASDIRECTED PRN PRN Reason: Hypoglycemia Folic Acid (Folic Acid) 1 mg PO DAILY [facility] Last Admin: 02/24/17 08:29 Dose: 1 mg Hydralazine HCl (Apresoline) 20 mg IVPUSH Q4H PRN PRN Reason: Hypertension Magnesium Sulfate 2 gm/ Premix 50 mls @ 25 mls/hr IV ONETIME ONE Stop: 02/24/17 10:01 Last Admin: 02/24/17 08:26 Dose: 25 mls/hr Insulin Aspart (Novolog) 0 unit SUBCUT QIDACANDBED [facility] PRN Reason: Protocol Last Admin: 02/24/17 08:26 Dose: 1 unit Lactulose (Cephulac) 40 gm PO TID [facility] Last Admin: 02/24/17 08:28 Dose: 40 gm Levofloxacin (Levaquin) 750 mg PO DAILY [facility] Last Admin: 02/24/17 08:29 Dose: 750 mg Magnesium Oxide (Magnesium Oxide) 400 mg PO DAILY [facility] Last Admin: 02/24/17 08:29 Dose: 400 mg Magnesium Sulfate (Pharmacy To Dose - Magnesium Replacement) 1 dose .XX ASDIRECTED [facility] Metoprolol Tartrate (Lopressor) 5 mg IVPUSH Q4H PRN PRN Reason: Tachycardia Ondansetron HCl (Zofran) 4 mg IVPUSH Q8H PRN PRN Reason: Nausea/Vomiting Pantoprazole Sodium (Protonix) 40 mg PO ACBREAKFAST [facility] Last Admin: 02/24/17 07:24 Dose: 40 mg Potassium Chloride (Pharmacy To Dose - Potassium Replacement) 1 dose .XX ASDIRECTED [facility] Rifaximin (Xifaxan) 550 mg PO BID [facility] Last Admin: 02/24/17 08:29 Dose: 550 mg Saccharomyces Boulardii (Florastor) 250 mg PO DAILY [facility] Last Admin: 02/24/17 08:28 Dose: 250 mg Simethicone (Simethicone) 160 mg PO Q8H PRN PRN Reason: Gas Last Admin: 02/20/17 20:29 Dose: 160 mg Sodium Chloride (Saline Flush) 10 ml FLUSH ASDIRECTED PRN PRN Reason: Keep Vein Open Last Admin: 02/20/17 15:07 Dose: 10 ml Spironolactone (Aldactone) 50 mg PO BID [facility] Last Admin: 02/24/17 08:29 Dose: 50 mg Thiamine HCl (Vitamin B-1) 100 mg PO BEDTIME [facility] Last Admin: 02/23/17 21:38 Dose: 100 mg Discontinued Medications Bumetanide (Bumex) 0.5 mg IVPUSH ONETIME ONE Stop: 02/22/17 18:01 Last Admin: 02/22/17 17:57 Dose: 0.5 mg Bumetanide (Bumex) 1 mg PO BIDDIURETIC [facility] Last Admin: 02/23/17 13:53 Dose: 1 mg Diphtheria/Tetanus/Acell Pertussis (Adacel) 0.5 ml IM .ONCE ONE Stop: 02/21/17 06:56 Erythromycin (Jed-Tab) 250 mg PO Q6HR [facility] Last Admin: 02/21/17 06:02 Dose: 250 mg Sodium Chloride (Normal Saline) 1,000 mls @ 125 mls/hr IV ASDIRECTED [facility] Last Admin: 02/22/17 00:56 Dose: 125 mls/hr Magnesium Sulfate 2 gm/ Premix 50 mls @ 25 mls/hr IV ONETIME ONE Stop: 02/21/17 11:36 Last Admin: 02/21/17 10:01 Dose: 25 mls/hr Levofloxacin/Dextrose 750 mg/ (Premix) 150 mls @ 100 mls/hr IV Q24H [facility] Stop: 02/22/17 12:44 Last Admin: 02/22/17 12:33 Dose: 100 mls/hr Magnesium Sulfate 2 gm/ Premix 50 mls @ 25 mls/hr IV ONETIME ONE Stop: 02/22/17 10:05 Last Admin: 02/22/17 09:36 Dose: 25 mls/hr Magnesium Sulfate 2 gm/ Premix 50 mls @ 25 mls/hr IV Q1H [facility] Stop: 02/23/17 10:44 Last Admin: 02/23/17 11:52 Dose: 25 mls/hr Lactulose (Cephulac) 20 gm PO ONETIME ONE Stop: 02/20/17 16:50 Last Admin: 02/20/17 17:34 Dose: 20 gm Lactulose (Cephulac) 60 gm PO TID [facility] Stop: 02/21/17 16:00 Last Admin: 02/21/17 15:19 Dose: 60 gm Potassium Chloride (Klor-Con M20) 20 meq PO Q3H [facility] Stop: 02/22/17 21:01 Last Admin: 02/22/17 21:51 Dose: 20 meq - Exam General: alert, oriented, cooperative, no acute distress, other (Obese) HEENT: Pupils equal, Pupils reactive, EOMI, Mucous membr. moist/pink Neck: supple, trachea midline, no JVD, other (short and thick) Lungs: Normal respiratory effort, Decreased breath sounds Cardiovascular: Regular Rate, Regular Rhythm Abdomen: bowel sounds present, soft, no tenderness, distension (mild), other (Male) Exam: Deferred Back Exam: Normal Inspection, Decreased Range of Motion Extremities: normal pulses, no tenderness/swelling, no clubbing, no cyanosis, edema Peripheral Pulses: 1+: Dorsalis Pedis (L), Dorsalis Pedis (R) Skin: warm, dry, intact Neurological: no new focal deficit Psy/Mental Status: alert, normal affect, homicidal ideation - Problem List Review Problem List Initiated/Reviewed/Updated: Yes - My Orders Last 24 Hours: My Active Orders 02/23/17 09:00 Saccharomyces Boulardii [Florastor] 250 mg PO DAILY 02/23/17 21:00 Bumetanide [Bumex] 1 mg IVPUSH BID 02/24/17 08:02 Magnesium Sulfate/Water [Magnesium Sulfate 2 GM in Water 50 ML] 2 gm Premix Bag 1 bag IV ONETIME - Plan Plan:: Impression: Acute: Mycoplasma PNA - Serology pos - Continue IV Levaquin 750 mg daily 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, Non B Hepatitis - Continue xifaxan, lactulose and aldactone Weight Gain - 30 Lbs since October - Lost 10 lbs today - Continue current diuretic Peripheral Edema, Improving - [place] and Bumex - Has low protein states Hypoalbuminemia - Dietary consulted for protein intake Hypomagnesemia - This is chronic based on EHR review - Mg 1.2 ---> 1.4 - Increased Mg-ox 400 mg po BID - Pharmacy to monitor and replete Resolved: S/p AMS, hepatic encephalopathy Chronic: HTN GERD Pancytopenia, Hgb level stable at 8.4 Hyperbilirubinemia Diabetes Mellitus type II, BS stable History of Substance abuse History of MRSA positive Plan: Patient remains clinically stable Continue current treatment Follow up with Dr. Sepulveda/David after discharge DVT/GI prophylaxis Encourage to ambulate as tolerated Code status: 1 Patient would like to get rid more fluids off of him. LOS is > 96 hrs, he needs more time with current treatment. Anticipate discharge in AM.
--- NOTE | 2017-02-24 13:36 | CT ---
Head CT Technique: Multiple axial sections through the brain were obtained. Intravenous contrast was not utilized. Comparison: Previous head CT exam of 07/22/16 is available. Findings: Ventricles along with basal cisterns and sulci over convexities are within normal limits for the patient's age. No abnormal parenchymal densities are seen. No evidence of intracranial hemorrhage. No midline shift or mass effect is seen. Bone window settings show the sinuses to appear clear. Lucent line is seen within the superior left orbit which is felt to be incidental. No acute bony abnormality is seen. Impression: 1. Incidental finding. Nothing acute is seen on noncontrast head CT exam. No significant change is seen from prior exam. Diagnostic code #2 I agree with preliminary report issued by [facility] ([facility] report finalized on 02/20/17, 5:25 PM Central Time)
[2017-02-24] MEDS: Simethicone 80 MG Tab.Chew PO PRN (18:36)
[2017-02-24] MEDS: Thiamine 100 MG Tab PO SCH (21:31)
[2017-02-25] MEDS: Pantoprazole 40 MG Tab.CR PO SCH (06:29)
[2017-02-25] MEDS: Insulin Aspart 100 Units/ML 3 ML Pen SUBCUT SCH ×2 (08:12→11:02)
[2017-02-25] MEDS: Bumetanide 1 MG/4 ML MDV IVPUSH SCH (08:15)
[2017-02-25] MEDS: Lactulose Soln 10 GM/15 ML 30 ML UD Cup PO SCH (08:15)
[2017-02-25] MEDS: Saccharomyces Boulardii (Probiotic) 250 MG Cap PO SCH (08:15)
[2017-02-25] MEDS: Folic Acid 1 MG Tab PO SCH (08:15)
[2017-02-25] MEDS: Spironolactone 25 MG Tab PO SCH (08:16)
[2017-02-25] MEDS: Rifaximin 550 MG Tab PO SCH (08:16)
[2017-02-25] MEDS: Magnesium Oxide 400 MG Tab PO SCH (08:16)
[2017-02-25] MEDS: Levofloxacin 750 MG Tab PO SCH (08:16)
--- NOTE | 2017-02-25 08:24 | PCM.DCSUM1 ---
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 He has been noncomplainant in the past. An infectious work up will be performed during this hospitalization. He may require treatment for SBP, will follow. He complains of chills, but denies fever; there has been no change in appetite. He denies cough, CP, SOB, nausea or vomiting. Hospitalist is consulted for AMS and for admission. Eval and workup reveals mycoplasma to be positive. He is treated with Levaquin, diuresed with IV bumex with 10+ lb weight loss, regular medications of lactulose, rifaxin and spironolactone continued at usual home doses, mental status resolved to baseline essentially by 48 hours. Strength improved. Ammonia level on admission was 110, down to 48 and at 67 at time of discharge. Baseline is thought to be between 50-70. Magnesium is low and supplemented, discharged on Mag Ox 400mg BID. He will also be discharged on Levaquin 750mg PO daily x 7 more days. He is to follow up with Dr. Terrell within one week of discharge. He is instructed to follow up with Dr. Hernandez, Distribution Collection Operator within one month of discharge. - Discharge Data Discharge Date: 02/25/17 (admit date 02/20/17) Discharge Disposition: Home, Self-Care 01 Condition: Good - Discharge Diagnosis/Problem(s) (1) Hepatic encephalopathy SNOMED Code(s): 38135619 ICD Code: K72.90 - HEPATIC FAILURE, UNSPECIFIED WITHOUT COMA Status: Acute Priority: High Current Visit: Yes Problem Details: - 2/2 Medical Non- compliance: admits to not taking lactulose (2) Mycoplasma infection SNOMED Code(s): 603443176 ICD Code: A49.3 - MYCOPLASMA INFECTION, UNSPECIFIED SITE Status: Acute Priority: High Current Visit: Yes (3) Hyperammonemia SNOMED Code(s): 6410467 ICD Code: E72.20 - DISORDER OF UREA CYCLE METABOLISM, UNSPECIFIED Status: Chronic Priority: High Current Visit: Yes (4) Hypomagnesemia SNOMED Code(s): 465966124 ICD Code: E83.42 - HYPOMAGNESEMIA Status: Acute Priority: High Current Visit: Yes (5) Cirrhosis of liver SNOMED Code(s): 75560928 ICD Code: K74.60 - UNSPECIFIED CIRRHOSIS OF LIVER Status: Chronic Priority: High Current Visit: Yes (6) Diabetes mellitus type 2 SNOMED Code(s): 03800729 ICD Code: E11.9 - TYPE 2 DIABETES MELLITUS WITHOUT COMPLICATIONS Status: Chronic Priority: High Current Visit: Yes (7) Pancytopenia SNOMED Code(s): 015280174 ICD Code: D61.818 - OTHER PANCYTOPENIA Status: Chronic Priority: Medium Current Visit: Yes (8) Obesity SNOMED Code(s): 793545122 ICD Code: E66.9 - OBESITY, UNSPECIFIED Status: Chronic Priority: Medium Current Visit: Yes - Patient Summary/Data Operative Procedure(s) Performed: None Complications: None Consults: Consultations 02/20/17 18:37 Consult to Patrol Sergeant [facility] [CONS] Routine 02/21/17 08:00 Consult to Occupational Therapy [OT Evaluation and Treatment] [CONS] Routine 02/21/17 09:00 Consult to Physical Therapy [PT Evaluation and Treatment] [CONS] Routine 02/22/17 09:09 Consult to Dietary [Consult to Smelting Engineer] [CONS] Routine Labs Pending at D/C: None Recommended Follow-up Testing/Procedures: Follow up with Dr. Terrell within one week of discharge Follow up with Dr. Hernandez, Distribution Collection Operator within one month of discharge Planned Operative Procedure(s) after DC: None Hospital Course: As above - Patient Instructions Diet: Low Sodium, No Alcoholic Beverages, Diabetic Diet Activity: As Tolerated (Exercise/walk 20 minutes+ daily) Driving: Do Not Drive Showering/Bathing: May Shower Notify Provider of: Fever, Increased Pain, Swelling and Redness, Nausea and/or Vomiting - Discharge Plan Prescriptions/Med Rec: Folic Acid 1 mg PO DAILY #30 tablet Levofloxacin [Levaquin] 750 mg PO DAILY #7 tablet Magnesium Oxide 400 mg PO BID #60 tablet Thiamine [Vitamin B-1] 100 mg PO BEDTIME #30 tablet Home Medications: Home Meds Pantoprazole [ProTONIX] 40 mg PO ACBREAKFAST #30 tab.cr 12/08/15 [Rx] Spironolactone 50 mg PO BID 03/03/16 [History] Rifaximin [Xifaxan] 550 mg PO BID 06/13/16 [History] metFORMIN [Glucophage] 850 mg PO BID 06/13/16 [History] Lactulose [Cephulac] 40 gm PO TID #1 bottle 11/05/16 [Rx] Folic Acid 1 mg PO DAILY #30 tablet 02/25/17 [Rx] Levofloxacin [Levaquin] 750 mg PO DAILY #7 tablet 02/25/17 [Rx] Magnesium Oxide 400 mg PO BID #60 tablet 02/25/17 [Rx] Thiamine [Vitamin B-1] 100 mg PO BEDTIME #30 tablet 02/25/17 [Rx] Patient Handouts: Hepatic Encephalopathy, Hypomagnesemia, Community-Acquired Pneumonia, Adult, [id number] Forms: ED Department Discharge Referrals: Boris Hernandez MD [Ordering Only Provider] - PCP,None [Primary Care Provider] - Howard Terrell [Physician] - (Please see Dr. Terrell at [facility] on Saturday at 11:00 AM 03/01/17 ) - Discharge Summary/Plan Comment DC Time >30 min.: Yes (40 min) - General Info Date of Service: 02/25/17 Admission Dx/Problem (Free Text: Admission Diagnosis/Problem Admission Diagnosis/Problem Hepatic encephalopathy Functional Status: Reports: pain controlled, tolerating diet, ambulating, urinating. Denies: new symptoms - Review of Systems General: Reports: No Symptoms. Denies: Weakness (resolved) HEENT: Reports: no symptoms Pulmonary: Reports: no symptoms. Denies: shortness of breath, pleuritic chest pain, cough, hemoptysis, wheezing Cardiovascular: Reports: No Symptoms Gastrointestinal: Reports: No symptoms Genitourinary: Reports: no symptoms Musculoskeletal: Reports: no symptoms Skin: Reports: no symptoms Neurological: Reports: No Symptoms. Denies: Confusion (resolved) Psychiatric: Reports: no symptoms. Denies: confusion (resolved) - Patient Data Vitals - Most Recent: Last Vital Signs Temp 99.2 F 02/25/17 04:00 Pulse 83 02/25/17 04:00 Resp 16 02/25/17 04:00 BP 104/48 L 02/25/17 04:00 Pulse Ox 95 02/25/17 04:00 Weight - Most Recent: 269 lb 6.4 oz I&O - Last 24 hours: Intake & Output 02/24/17 02/25/1717 22:59 06:59 14:59 Intake Total 2440 400 Output Total 2470 700 Balance -310 -300 Lab Results - Last 24 hrs: Laboratory Results - last 24 hr 02/24/17 02/24/17 02/24/17 Range/Units 07:00 11:32 17:18 WBC 2.78 L (4.23-9.07) K/mm3 RBC 2.63 L (4.63-6.08) M/mm3 Hgb 8.6 L (13.7-17.5) gm/L Hct 24.5 L (40.1-51.0) % MCV 93.2 H (79.0-92.2) fl MCH 32.7 H (25.7-32.2) pg MCHC 35.1 (32.2-35.5) g/dl RDW Std Deviation 53.5 H (35.1-43.9) fL Plt Count 47 L (163-337) K/mm3 MPV 9.9 (9.4-12.3) fl Neut % (Auto) 59.7 (34.0-67.9) % Lymph % (Auto) 27.7 (21.8-53.1) % [place] % (Auto) 10.8 (5.3-12.2) % Eos % (Auto) 1.4 (0.8-7.0) Baso % (Auto) 0.4 (0.1-1.2) % Neut # (Auto) 1.66 L (1.78-5.38) K/mm3 Lymph # (Auto) 0.77 L (1.32-3.57) K/mm3 [place] # (Auto) 0.30 (0.30-0.82) K/mm3 Eos # (Auto) 0.04 (0.04-0.54) K/mm3 Baso # (Auto) 0.01 (0.01-0.08) K/mm3 Manual Slide Review Abnormal smear POC Glucose 230 H 184 H (70-105) mg/dL 02/24/17 02/25/17 Range/Units 21:23 06:34 WBC (4.23-9.07) K/mm3 RBC (4.63-6.08) M/mm3 Hgb (13.7-17.5) gm/L Hct (40.1-51.0) % MCV (79.0-92.2) fl MCH (25.7-32.2) pg MCHC (32.2-35.5) g/dl RDW Std Deviation (35.1-43.9) fL Plt Count (163-337) K/mm3 MPV (9.4-12.3) fl Neut % (Auto) (34.0-67.9) % Lymph % (Auto) (21.8-53.1) % [place] % (Auto) (5.3-12.2) % Eos % (Auto) (0.8-7.0) Baso % (Auto) (0.1-1.2) % Neut # (Auto) (1.78-5.38) K/mm3 Lymph # (Auto) (1.32-3.57) K/mm3 [place] # (Auto) (0.30-0.82) K/mm3 Eos # (Auto) (0.04-0.54) K/mm3 Baso # (Auto) (0.01-0.08) K/mm3 Manual Slide Review POC Glucose 181 H 187 H (70-105) mg/dL Med Orders - Current: Current Medications Bumetanide (Bumex) 1 mg IVPUSH BID [facility] Last Admin: 02/25/17 08:15 Dose: 1 mg Dextrose/Water (Dextrose 50% In Water) 50 ml IVPUSH ASDIRECTED PRN PRN Reason: Hypoglycemia Folic Acid (Folic Acid) 1 mg PO DAILY [facility] Last Admin: 02/25/17 08:15 Dose: 1 mg Hydralazine HCl (Apresoline) 20 mg IVPUSH Q4H PRN PRN Reason: Hypertension Insulin Aspart (Novolog) 0 unit SUBCUT QIDACANDBED [facility] PRN Reason: Protocol Last Admin: 02/25/17 08:12 Dose: 1 unit Lactulose (Cephulac) 40 gm PO TID [facility] Last Admin: 02/25/17 08:15 Dose: 40 gm Levofloxacin (Levaquin) 750 mg PO DAILY [facility] Last Admin: 02/25/17 08:16 Dose: 750 mg Magnesium Oxide (Magnesium Oxide) 400 mg PO BID [facility] Last Admin: 02/25/17 08:16 Dose: 400 mg Magnesium Sulfate (Pharmacy To Dose - Magnesium Replacement) 1 dose .XX ASDIRECTED [facility] Metoprolol Tartrate (Lopressor) 5 mg IVPUSH Q4H PRN PRN Reason: Tachycardia Ondansetron HCl (Zofran) 4 mg IVPUSH Q8H PRN PRN Reason: Nausea/Vomiting Pantoprazole Sodium (Protonix) 40 mg PO ACBREAKFAST [facility] Last Admin: 02/25/17 06:29 Dose: 40 mg Potassium Chloride (Pharmacy To Dose - Potassium Replacement) 1 dose .XX ASDIRECTED [facility] Rifaximin (Xifaxan) 550 mg PO BID [facility] Last Admin: 02/25/17 08:16 Dose: 550 mg Saccharomyces Boulardii (Florastor) 250 mg PO DAILY [facility] Last Admin: 02/25/17 08:15 Dose: 250 mg Simethicone (Simethicone) 160 mg PO Q8H PRN PRN Reason: Gas Last Admin: 02/24/17 18:36 Dose: 160 mg Sodium Chloride (Saline Flush) 10 ml FLUSH ASDIRECTED PRN PRN Reason: Keep Vein Open Last Admin: 02/20/17 15:07 Dose: 10 ml Spironolactone (Aldactone) 50 mg PO BID [facility] Last Admin: 02/25/17 08:16 Dose: 50 mg Thiamine HCl (Vitamin B-1) 100 mg PO BEDTIME [facility] Last Admin: 02/24/17 21:31 Dose: 100 mg Discontinued Medications Bumetanide (Bumex) 0.5 mg IVPUSH ONETIME ONE Stop: 02/22/17 18:01 Last Admin: 02/22/17 17:57 Dose: 0.5 mg Bumetanide (Bumex) 1 mg PO BIDDIURETIC [facility] Last Admin: 02/23/17 13:53 Dose: 1 mg Diphtheria/Tetanus/Acell Pertussis (Adacel) 0.5 ml IM .ONCE ONE Stop: 02/21/17 06:56 Erythromycin (Jed-Tab) 250 mg PO Q6HR [facility] Last Admin: 02/21/17 06:02 Dose: 250 mg Sodium Chloride (Normal Saline) 1,000 mls @ 125 mls/hr IV ASDIRECTED [facility] Last Admin: 02/22/17 00:56 Dose: 125 mls/hr Magnesium Sulfate 2 gm/ Premix 50 mls @ 25 mls/hr IV ONETIME ONE Stop: 02/21/17 11:36 Last Admin: 02/21/17 10:01 Dose: 25 mls/hr Levofloxacin/Dextrose 750 mg/ (Premix) 150 mls @ 100 mls/hr IV Q24H [facility] Stop: 02/22/17 12:44 Last Admin: 02/22/17 12:33 Dose: 100 mls/hr Magnesium Sulfate 2 gm/ Premix 50 mls @ 25 mls/hr IV ONETIME ONE Stop: 02/22/17 10:05 Last Admin: 02/22/17 09:36 Dose: 25 mls/hr Magnesium Sulfate 2 gm/ Premix 50 mls @ 25 mls/hr IV Q1H [facility] Stop: 02/23/17 10:44 Last Admin: 02/23/17 11:52 Dose: 25 mls/hr Magnesium Sulfate 2 gm/ Premix 50 mls @ 25 mls/hr IV ONETIME ONE Stop: 02/24/17 10:01 Last Admin: 02/24/17 08:26 Dose: 25 mls/hr Lactulose (Cephulac) 20 gm PO ONETIME ONE Stop: 02/20/17 16:50 Last Admin: 02/20/17 17:34 Dose: 20 gm Lactulose (Cephulac) 60 gm PO TID [facility] Stop: 02/21/17 16:00 Last Admin: 02/21/17 15:19 Dose: 60 gm Magnesium Oxide (Magnesium Oxide) 400 mg PO DAILY [facility] Last Admin: 02/24/17 08:29 Dose: 400 mg Potassium Chloride (Klor-Con M20) 20 meq PO Q3H [facility] Stop: 02/22/17 21:01 Last Admin: 02/22/17 21:51 Dose: 20 meq - Exam Quality Assessment: Reports: DVT prophylaxis General: Reports: alert, oriented, cooperative, no acute distress HEENT: Reports: Pupils equal, Pupils reactive, EOMI, Mucous membr. moist/pink Neck: Reports: supple Lungs: Reports: Clear to auscultation, Normal respiratory effort, Decreased breath sounds (bases) Cardiovascular: Reports: Regular Rate, Regular Rhythm, No Murmurs Abdomen: Reports: bowel sounds present, soft, no tenderness (Male) Exam: Deferred Rectal (Males) Exam: Deferred Extremities: Reports: edema (1+, much improved) Neurological: Reports: no new focal deficit Psy/Mental Status: Reports: alert, normal affect, normal mood *Q Meaningful Use (DIS) - VTE *Q VTE Criteria *Q: - Stroke *Q Stroke Criteria *Q: - AMI *Q AMI Criteria *Q:
[2017-02-25 11:57] VITALS: BP 113/54
== END 2017-02-25 12:26 | disposition home or self-care (01) | DRG 280 ==
LOC: JD.ED 14:08 → JD.MS 17:31
PROVIDERS: ADMIT Internal Medicine Cardiovascular Disease; ATTEND Internal Medicine Cardiovascular Disease
DX: K70.40 Alcoholic hepatic failure without coma (principal); K70.31 Alcoholic cirrhosis of liver with ascites; F10.21 Alcohol dependence, in remission; R41.82 Altered mental status, unspecified; E83.42 Hypomagnesemia; E88.09 Other disorders of plasma-protein metabolism, not elsewhere classified; E80.6 Other disorders of bilirubin metabolism; J15.7 Pneumonia due to Mycoplasma pneumoniae; K21.9 Gastro-esophageal reflux disease without esophagitis; I10 Essential (primary) hypertension; B17.8 Other specified acute viral hepatitis; E72.20 Disorder of urea cycle metabolism, unspecified; E11.9 Type 2 diabetes mellitus without complications; Z79.84 Long term (current) use of oral hypoglycemic drugs; D61.818 Other pancytopenia; Z86.14 Personal history of Methicillin resistant Staphylococcus aureus infection
CPT/HCPCS: 36415; 70450; 70450-26; 71020; 71020-26; 80048; 80053; 81001; 82140; 82247; 82248; 82962; 83690; 83735; 84484; 85025; 85610; 86140; 86738; 93005; 96360; 96361; 97161-GP; 97165-GO; 99284; 99285-25; A9270-GY; J1815-GY; J1956; J3475; J7040; J7050

== ENCOUNTER 2017-04-23 19:32 | Inpatient (IN) | payer BC ==
--- NOTE | 2017-04-23 19:58 | EDM.PDOC ---
ED HPI GENERAL MEDICAL PROBLEM - General Chief Complaint: Neuro Symptoms/Deficits Stated Complaint: [facility] Time Seen by Provider: 04/23/17 19:32 - History of Present Illness INITIAL COMMENTS - FREE TEXT/NARRATIVE: 56-year-old male brought in by EMS with unresponsiveness. Patient is long-standing liver disease and is often encephalopathic. He has a history of noncompliance with his medications. Patient was found unresponsive today apparently he was sitting on the toilet for several hours not awake. It is uncertain if he's been taking his medications as directed or if he's been using any drugs or alcohol. Family is not here to answer questions. Patient cannot answers questions. Treatments CREW PERSON: Reports: EKG, IV/IO - Related Data Allergies Allergy/AdvReac Type Severity Reaction Status Date / Time No Known Allergies Allergy Verified 04/23/17 19:40 Home Meds: Home Meds Pantoprazole [ProTONIX] 40 mg PO ACBREAKFAST #30 tab.cr 12/08/15 [Rx] Spironolactone 50 mg PO BID 03/03/16 [History] Rifaximin [Xifaxan] 550 mg PO BID 06/13/16 [History] metFORMIN [Glucophage] 850 mg PO BID 06/13/16 [History] Lactulose [Cephulac] 40 gm PO TID #1 bottle 11/05/16 [Rx] Folic Acid 1 mg PO DAILY #30 tablet 02/25/17 [Rx] Levofloxacin [Levaquin] 750 mg PO DAILY #7 tablet 02/25/17 [Rx] Magnesium Oxide 400 mg PO BID #60 tablet 02/25/17 [Rx] Thiamine [Vitamin B-1] 100 mg PO BEDTIME #30 tablet 02/25/17 [Rx] Past Medical History Cardiovascular History: Reports: Hypertension Respiratory History: Reports: SOB Gastrointestinal History: Reports: Cirrhosis, GERD, GI Bleed Other Gastrointestinal History: liver failure;stomach bleed Neurological History: Reports: Other (See Below) Other Neuro History: hepatic encephalopathy Psychiatric History: Reports: Addiction Other Psychiatric History: recovered alcoholic Endocrine/Metabolic History: Reports: Diabetes, Type II, Obesity/BMI 30+ Hematologic History: Reports: Anemia, Blood Transfusion(s) Dermatologic History: Reports: Cellulitis, Other (See Below) Other Dermatologic History: 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 History of cellulitis to both legs. - Infectious Disease History Infectious Disease History: Reports: Hepatitis non A,B,C, Measles, MRSA - Past Surgical History GI Surgical History: Reports: Other (See Below) Musculoskeletal Surgical History: Reports: Other (See Below) Social & Family History - Family History Family Medical History: Noncontributory - Tobacco Use Smoking Status *Q: Unknown Ever Smoked Years of Tobacco use: 25 Packs/Tins Daily: 0.5 Used Tobacco, but Quit: Yes Month Tobacco Last Used: 20 years ago Second Hand Smoke Exposure: No - Caffeine Use Caffeine Use: Reports: Coffee, Soda, Tea - Alcohol Use Days Per Week of Alcohol Use: 0 - Recreational Drug Use Recreational Drug Use: No - Living Situation & Occupation Living situation: Reports: , with Family Occupation: Employed ED ROS GENERAL - Review of Systems Review Of Systems: Unable To Obtain ED EXAM, NEURO - Physical Exam Exam: See Below Exam Limited By: Other (Unresponsive) General Appearance: No Apparent Distress, Other (Vital signs stable he is protecting his airway) Ears: Normal External Exam, Normal Canal, Hearing Grossly Normal, Normal TMs Nose: Normal Inspection, Normal Mucosa, No Blood Throat/Mouth: Normal Inspection, Normal Oropharynx, No Airway Compromise Head Exam: Atraumatic, Normocephalic Neck: Normal Inspection, Supple, Non-Tender, Full Range of Motion Respiratory/Chest: No Respiratory Distress, Lungs Clear, Normal Breath Sounds, No Accessory Muscle Use, Chest Non-Tender Cardiovascular: Regular Rate, Rhythm, No Murmur, Other (Significant lower extremity edema). No: No Edema GI/Abdominal: Normal Bowel Sounds, Soft, Non-Tender, Other (He appears to have fair amount of ascites) Extremities: Other (2-3+ pitting edema) EKG INTERPRETATION EKG Date: 04/23/17 Rhythm: Other (Sinus first-degree AV block) [place]: LAD-Left [place] Deviation P-Wave: Present QRS: Normal ST-T: Other (Nonspecific nondiagnostic changes) QT: Normal (Outer limits of normal) Comparison: No Change EKG Interpretation Comments: Abnormal EKG Course - Vital Signs Last Recorded V/S: Last Vital Signs Temp 36.7 C 04/23/17 19:37 Pulse 79 04/23/17 20:55 Resp 18 04/23/17 20:55 BP 117/60 04/23/17 20:55 Pulse Ox 100 04/23/17 20:55 - Orders/Labs/Meds Orders: Active Orders 24 hr Category Date Time Status EKG 12 Lead [EKG Documentation Completion] [RC] STAT Care 04/23/17 19:40 Active Chest 1V Frontal [CR] Stat Exams 04/23/17 19:49 Taken Lactulose [Cephulac] Med 04/23/17 21:38 Once 40 gm PO ONETIME ONE Labs: Laboratory Tests 04/23/17 04/23/17 04/23/17 Range/Units 19:38 19:38 19:49 WBC 3.15 L (4.23-9.07) K/mm3 RBC 2.94 L (4.63-6.08) M/mm3 Hgb 9.6 L (13.7-17.5) gm/L Hct 27.7 L (40.1-51.0) % MCV 94.2 H (79.0-92.2) fl MCH 32.7 H (25.7-32.2) pg MCHC 34.7 (32.2-35.5) g/dl RDW Std Deviation 54.0 H (35.1-43.9) fL Plt Count 53 L (163-337) K/mm3 MPV 10.2 (9.4-12.3) fl Neutrophils % (Manual) 73 H (40-60) % Band Neutrophils % 0 (0-10) % Lymphocytes % (Manual) 26 (20-40) % Atypical Lymphs % 0 % Monocytes % (Manual) 1 L (2-10) % Eosinophils % (Manual) 0 L (0.8-7.0) % Basophils % (Manual) 0 L (0.2-1.2) Platelet Estimate Decreased Plt Morphology Comment See note Polychromasia Few Anisocytosis 1+ slight Macrocytosis 1+ slight Ovalocytes 1+ slight RBC Morph Comment Not Reportable PT 14.3 H (8.0-13.0) SECONDS INR 1.29 APTT 39 H (22-36) SECONDS Puncture Site ABG pH (7.35-7.45) ABG pCO2 (35.0-45.0) mmHg ABG pO2 (80.0-100.0) mmHg ABG HCO3 (22.0-26.0) meq/L ABG O2 Saturation (96.0-97.0) % ABG Base Excess (-2-2.0) A-a Gradient mmHg O2 Delivery Device Oxygen Flow Rate FiO2 (21.00-100.00) % Sodium 138 (136-145) mEq/L Potassium 3.9 (3.5-5.1) mEq/L Chloride 109 H (98-107) mEq/L Carbon Dioxide 23 (21-32) mEq/L Anion Gap 9.9 (5-15) BUN 9 (7-18) mg/dL Creatinine 0.8 (0.7-1.3) mg/dL Est Cr Clr Drug Dosing 101.88 mL/min Estimated GFR (MDRD) > 60 (>60) mL/min BUN/Creatinine Ratio 11.3 L (14-18) Glucose 162 H (74-106) mg/dL Calcium 8.2 L (8.5-10.1) mg/dL Magnesium 1.7 L (1.8-2.4) mg/dl Total Bilirubin 2.3 H (0.2-1.0) mg/dL AST 26 (15-37) U/L ALT 24 (16-63) U/L Alkaline Phosphatase 80 (46-116) U/L Ammonia (11-32) umol/L Troponin I 0.047 (0.00-0.056) ng/mL Total Protein 7.3 (6.4-8.2) g/dl Albumin 2.0 L (3.4-5.0) g/dl Globulin 5.3 gm/dL Albumin/Globulin Ratio 0.4 L (1-2) Urine Color (Yellow) Urine Appearance (Clear) Urine pH (5.0-8.0) Ur Specific [place] (1.005-1.030) Urine Protein (Negative) Urine Glucose (UA) (Negative) Urine Ketones (Negative) Urine Occult Blood (Negative) Urine Nitrite (Negative) Urine Bilirubin (Negative) Urine Urobilinogen (0.2-1.0) Ur Leukocyte Esterase (Negative) Urine RBC (0-5) /hpf Urine WBC (0-5) /hpf Ur Epithelial Cells (0-5) /hpf Amorphous Sediment (NOT SEEN) /hpf Urine Bacteria (FEW) /hpf Urine Mucus (FEW) /hpf Urine Opiates Screen (NEGATIVE) Ur Buprenorphine Scrn (NEGATIVE) Ur Oxycodone Screen (NEGATIVE) Urine Methadone Screen (NEGATIVE) Ur Propoxyphene Screen (NEGATIVE) Ur Barbiturates Screen (NEGATIVE) Ur Tricyclics Screen (NEGATIVE) Ur Phencyclidine Scrn (NEGATIVE) Ur Amphetamine Screen (NEGATIVE) U Methamphetamines Scrn (NEGATIVE) U Benzodiazepines Scrn (NEGATIVE) U Cocaine Metab Screen (NEGATIVE) U Marijuana (THC) Screen (NEGATIVE) Ethyl Alcohol 0.00 (0.00) gm% 04/23/17 04/23/17 04/23/17 Range/Units 19:50 20:30 20:30 WBC (4.23-9.07) K/mm3 RBC (4.63-6.08) M/mm3 Hgb (13.7-17.5) gm/L Hct (40.1-51.0) % MCV (79.0-92.2) fl MCH (25.7-32.2) pg MCHC (32.2-35.5) g/dl RDW Std Deviation (35.1-43.9) fL Plt Count (163-337) K/mm3 MPV (9.4-12.3) fl Neutrophils % (Manual) (40-60) % Band Neutrophils % (0-10) % Lymphocytes % (Manual) (20-40) % Atypical Lymphs % % Monocytes % (Manual) (2-10) % Eosinophils % (Manual) (0.8-7.0) % Basophils % (Manual) (0.2-1.2) Platelet Estimate Plt Morphology Comment Polychromasia Anisocytosis Macrocytosis Ovalocytes RBC Morph Comment PT (8.0-13.0) SECONDS INR APTT (22-36) SECONDS Puncture Site Rt radial ABG pH 7.44 (7.35-7.45) ABG pCO2 31.1 L (35.0-45.0) mmHg ABG pO2 78.0 L (80.0-100.0) mmHg ABG HCO3 20.5 L (22.0-26.0) meq/L ABG O2 Saturation 96.9 (96.0-97.0) % ABG Base Excess -2.7 L (-2-2.0) A-a Gradient 18 mmHg O2 Delivery Device Room air Oxygen Flow Rate 0.0 FiO2 0.00 L (21.00-100.00) % Sodium (136-145) mEq/L Potassium (3.5-5.1) mEq/L Chloride (98-107) mEq/L Carbon Dioxide (21-32) mEq/L Anion Gap (5-15) BUN (7-18) mg/dL Creatinine (0.7-1.3) mg/dL Est Cr Clr Drug Dosing mL/min Estimated GFR (MDRD) (>60) mL/min BUN/Creatinine Ratio (14-18) Glucose (74-106) mg/dL Calcium (8.5-10.1) mg/dL Magnesium (1.8-2.4) mg/dl Total Bilirubin (0.2-1.0) mg/dL AST (15-37) U/L ALT (16-63) U/L Alkaline Phosphatase (46-116) U/L Ammonia (11-32) umol/L Troponin I (0.00-0.056) ng/mL Total Protein (6.4-8.2) g/dl Albumin (3.4-5.0) g/dl Globulin gm/dL Albumin/Globulin Ratio (1-2) Urine Color Yellow (Yellow) Urine Appearance Clear (Clear) Urine pH 7.0 (5.0-8.0) Ur Specific [place] 1.015 (1.005-1.030) Urine Protein Negative (Negative) Urine Glucose (UA) Negative (Negative) Urine Ketones Negative (Negative) Urine Occult Blood 1+ H (Negative) Urine Nitrite Negative (Negative) Urine Bilirubin Negative (Negative) Urine Urobilinogen 1.0 (0.2-1.0) Ur Leukocyte Esterase Negative (Negative) Urine RBC 0-5 (0-5) /hpf Urine WBC 0-5 (0-5) /hpf Ur Epithelial Cells 0-5 (0-5) /hpf Amorphous Sediment Few H (NOT SEEN) /hpf Urine Bacteria Occasional (FEW) /hpf Urine Mucus Not seen (FEW) /hpf Urine Opiates Screen Negative (NEGATIVE) Ur Buprenorphine Scrn Negative (NEGATIVE) Ur Oxycodone Screen Negative (NEGATIVE) Urine Methadone Screen Negative (NEGATIVE) Ur Propoxyphene Screen Negative (NEGATIVE) Ur Barbiturates Screen Negative (NEGATIVE) Ur Tricyclics Screen Negative (NEGATIVE) Ur Phencyclidine Scrn Negative (NEGATIVE) Ur Amphetamine Screen Negative (NEGATIVE) U Methamphetamines Scrn Negative (NEGATIVE) U Benzodiazepines Scrn Negative (NEGATIVE) U Cocaine Metab Screen Negative (NEGATIVE) U Marijuana (THC) Screen Negative (NEGATIVE) Ethyl Alcohol (0.00) gm% 04/23/17 Range/Units 20:45 WBC (4.23-9.07) K/mm3 RBC (4.63-6.08) M/mm3 Hgb (13.7-17.5) gm/L Hct (40.1-51.0) % MCV (79.0-92.2) fl MCH (25.7-32.2) pg MCHC (32.2-35.5) g/dl RDW Std Deviation (35.1-43.9) fL Plt Count (163-337) K/mm3 MPV (9.4-12.3) fl Neutrophils % (Manual) (40-60) % Band Neutrophils % (0-10) % Lymphocytes % (Manual) (20-40) % Atypical Lymphs % % Monocytes % (Manual) (2-10) % Eosinophils % (Manual) (0.8-7.0) % Basophils % (Manual) (0.2-1.2) Platelet Estimate Plt Morphology Comment Polychromasia Anisocytosis Macrocytosis Ovalocytes RBC Morph Comment PT (8.0-13.0) SECONDS INR APTT (22-36) SECONDS Puncture Site ABG pH (7.35-7.45) ABG pCO2 (35.0-45.0) mmHg ABG pO2 (80.0-100.0) mmHg ABG HCO3 (22.0-26.0) meq/L ABG O2 Saturation (96.0-97.0) % ABG Base Excess (-2-2.0) A-a Gradient mmHg O2 Delivery Device Oxygen Flow Rate FiO2 (21.00-100.00) % Sodium (136-145) mEq/L Potassium (3.5-5.1) mEq/L Chloride (98-107) mEq/L Carbon Dioxide (21-32) mEq/L Anion Gap (5-15) BUN (7-18) mg/dL Creatinine (0.7-1.3) mg/dL Est Cr Clr Drug Dosing mL/min Estimated GFR (MDRD) (>60) mL/min BUN/Creatinine Ratio (14-18) Glucose (74-106) mg/dL Calcium (8.5-10.1) mg/dL Magnesium (1.8-2.4) mg/dl Total Bilirubin (0.2-1.0) mg/dL AST (15-37) U/L ALT (16-63) U/L Alkaline Phosphatase (46-116) U/L Ammonia 141 H (11-32) umol/L Troponin I (0.00-0.056) ng/mL Total Protein (6.4-8.2) g/dl Albumin (3.4-5.0) g/dl Globulin gm/dL Albumin/Globulin Ratio (1-2) Urine Color (Yellow) Urine Appearance (Clear) Urine pH (5.0-8.0) Ur Specific [place] (1.005-1.030) Urine Protein (Negative) Urine Glucose (UA) (Negative) Urine Ketones (Negative) Urine Occult Blood (Negative) Urine Nitrite (Negative) Urine Bilirubin (Negative) Urine Urobilinogen (0.2-1.0) Ur Leukocyte Esterase (Negative) Urine RBC (0-5) /hpf Urine WBC (0-5) /hpf Ur Epithelial Cells (0-5) /hpf Amorphous Sediment (NOT SEEN) /hpf Urine Bacteria (FEW) /hpf Urine Mucus (FEW) /hpf Urine Opiates Screen (NEGATIVE) Ur Buprenorphine Scrn (NEGATIVE) Ur Oxycodone Screen (NEGATIVE) Urine Methadone Screen (NEGATIVE) Ur Propoxyphene Screen (NEGATIVE) Ur Barbiturates Screen (NEGATIVE) Ur Tricyclics Screen (NEGATIVE) Ur Phencyclidine Scrn (NEGATIVE) Ur Amphetamine Screen (NEGATIVE) U Methamphetamines Scrn (NEGATIVE) U Benzodiazepines Scrn (NEGATIVE) U Cocaine Metab Screen (NEGATIVE) U Marijuana (THC) Screen (NEGATIVE) Ethyl Alcohol (0.00) gm% - Re-Assessments/Exams Free Text/Narrative Re-Assessment/Exam: 04/23/17 21:[address] Candelario, our hospitalist who will admit the patient MedSurg telemetry we will give a dose of lactulose at this point. Departure - Departure Time of Disposition: 21:39 Disposition: Admitted As Inpatient 65 Clinical Impression: Cirrhosis of liver, Diabetes mellitus type 2, Hepatic encephalopathy - Discharge Information Forms: ED Department Discharge - My Orders Last 24 Hours: My Active Orders 04/23/17 19:40 EKG 12 Lead [EKG Documentation Completion] [RC] STAT 04/23/17 19:49 Chest 1V Frontal [CR] Stat 04/23/17 21:38 Lactulose [Cephulac] 40 gm PO ONETIME ONE - Assessment/Plan Last 24 Hours: My Active Orders 04/23/17 19:40 EKG 12 Lead [EKG Documentation Completion] [RC] STAT 04/23/17 19:49 Chest 1V Frontal [CR] Stat 04/23/17 21:38 Lactulose [Cephulac] 40 gm PO ONETIME ONE
--- NOTE | 2017-04-23 20:30 | CT ---
Head CT Technique: Multiple axial sections through the brain were obtained. Intravenous contrast was not utilized. Comparison: Previous head CT study is 02/20/17. Findings: Ventricles along with basal cisterns and sulci over the convexities are within normal limits for the patient's age. No abnormal parenchymal densities are seen. No evidence of intracranial hemorrhage. No midline shift or mass effect is seen. Bone window settings were reviewed which shows the paranasal sinuses to appear clear. Mastoid sinuses and middle ear cavities are clear. No acute calvarial abnormality is identified. Stable lucent line is identified within the superior left orbit is felt to be old and incidental. Impression: 1. Nothing acute is seen on noncontrast head CT study. No significant change is identified from prior head CT exam. Diagnostic code #2
[2017-04-23] MEDS ORDERED: Lactulose Soln 10 GM/15 ML 30 ML UD Cup PO ONE (21:38)
--- NOTE | 2017-04-23 22:32 | PCM.HP ---
H&P History of Present Illness - General Date of Service: 04/23/17 Admit Problem/Dx: Admission Diagnosis/Problem Admission Diagnosis/Problem Hepatic encephalopathy Source of Information: Patient, Old Records, Provider, RN Notes Reviewed History Limitations: Reports: Altered Mental Status - History of Present Illness Initial Comments - Free Text/Narative: This is a 56-year-old morbidly obese white male with past medical history of advanced liver disease, history of GI bleed status post TIPS, GERD, history of chronic hepatic encephalopathy, history of pancytopenia, history of alcohol abuse, type 2 diabetes, protein deficiency, and medical noncompliance who presented to the emergency department due to unresponsiveness. Per ED notes, patient was found unresponsive today while he was sitting on the toilet for several hours. No family members present at bedside when he was brought in to the emergency department. Patient is known to the hospitalist team from previous multiple admissions related to hepatic encephalopathy. His initial workup in the emergency department shows a CBC remarkable for WBC of 3.15, RBC of 2.94, hemoglobin 9.6, hematocrit 27.7, MCV of 94.2, and platelet of 53. His PT is 14.3, INR is 1.29 and APTT is 39. His chemistry is remarkable for chloride of 109, glucose of 162, calcium of 8.2, magnesium 1.7, total bilirubin at 2.3, ammonia 141, and albumin of 2. His UA and UDS are both negative. His blood alcohol level is 0. His Head CT scan report reads nothing acute is seen on a non-contrasted CT scan. Patient is being admitted for acute on chronic encephalopathy secondary to advanced liver disease. He is full code. - Related Data Allergies/Adverse Reactions: Allergies Allergy/AdvReac Type Severity Reaction Status Date / Time No Known Allergies Allergy Verified 04/23/17 19:40 Home Medications: Home Meds Pantoprazole [ProTONIX] 40 mg PO ACBREAKFAST #30 tab.cr 12/08/15 [Rx] Spironolactone 50 mg PO BID 03/03/16 [History] Rifaximin [Xifaxan] 550 mg PO BID 06/13/16 [History] metFORMIN [Glucophage] 850 mg PO BID 06/13/16 [History] Past Medical History Cardiovascular History: Reports: Hypertension Respiratory History: Reports: SOB Gastrointestinal History: Reports: Cirrhosis, GERD, GI Bleed Other Gastrointestinal History: liver failure;stomach bleed Neurological History: Reports: Other (See Below) Other Neuro History: hepatic encephalopathy Psychiatric History: Reports: Addiction Other Psychiatric History: recovered alcoholic Endocrine/Metabolic History: Reports: Diabetes, Type II, Obesity/BMI 30+ Hematologic History: Reports: Anemia, Blood Transfusion(s) Dermatologic History: Reports: Cellulitis, Other (See Below) Other Dermatologic History: 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 History of cellulitis to both legs. - Infectious Disease History Infectious Disease History: Reports: Hepatitis non A,B,C, Measles, MRSA - Past Surgical History GI Surgical History: Reports: Other (See Below) Musculoskeletal Surgical History: Reports: Other (See Below) Social & Family History - Family History Family Medical History: Noncontributory - Tobacco Use Smoking Status *Q: Unknown Ever Smoked Years of Tobacco use: 25 Packs/Tins Daily: 0.5 Used Tobacco, but Quit: Yes Month Tobacco Last Used: 20 years ago Second Hand Smoke Exposure: No - Caffeine Use Caffeine Use: Reports: Coffee, Soda, Tea - Alcohol Use Days Per Week of Alcohol Use: 0 - Recreational Drug Use Recreational Drug Use: No - Living Situation & Occupation Living situation: Reports: , with Family Occupation: Employed H&P Review of Systems - Review of Systems: Review Of Systems: Unable To Obtain Exam - Exam Exam: See Below - Vital Signs Vital Signs: Last Vital Signs Temp 36.7 C 04/23/17 19:37 Pulse 72 04/23/17 21:56 Resp 19 04/23/17 21:56 BP 115/60 04/23/17 21:55 Pulse Ox 100 04/23/17 21:56 Weight: 122.016 kg - Exam General: Lethargic, Other (Morbidly Obese) HEENT: Conjunctiva Clear, EACs Clear, Hearing Intact, Mucosa Moist & [place], Nares Patent, Posterior Pharynx Clear, Pupils Equal, Pupils Reactive. No: EOMI Neck: Supple, Trachea Midline, +2 Carotid Pulse wo Bruit Lungs: Normal Respiratory Effort, Decreased Breath Sounds Cardiovascular: Regular Rate, Regular Rhythm GI/Abdominal Exam: Normal Bowel Sounds, Soft, Non-Tender, No Organomegaly, No Distention, No Abnormal Bruit, No Mass (Male) Exam: Deferred Rectal (Males) Exam: Deferred Back Exam: Normal Inspection Extremities: Normal Inspection, Pedal Edema (2+Plus) Peripheral Pulses: 1+: Dorsalis Pedis (L), Dorsalis Pedis (R) Skin: Warm, Dry, Intact Neuro Extensive - Mental Status: Disorientation to Person, Disorientation to Time, Slow Response to Commands. No: Normal Cognition, Memory Intact Neuro Extensive - Motor, Sensory, Reflexes: CN II-XII Intact (limited due to confusion), Abnormal Gait Psychiatric: Normal Affect, Normal Mood. No: Anxious, Agitated, Suicidal Ideation, Homicidal Ideation, Withdrawal Symptoms - Patient Data Result Diagrams: 04/24/17 06:10 04/24/17 06:10 *Q Meaningful Use (ADM) - VTE *Q VTE Criteria *Q: - Stroke *Q Stroke Criteria *Q: - AMI *Q AMI Criteria *Q: Problem List Initiated/Reviewed/Updated: Yes Assessment/Plan Comment:: Assessment/Plan: Acute: Hepatic Encephalopathy - Acute on Chronic - 2/2 Advanced Liver Disease and Medical Non-compliance - Head CT scan: no acute intra-cranial abnormality - Ammonia level is 141 - CXR, UA and UDS all negative - Unsure if he is taking his lactulose and xifaxan - Resume Home Meds - Monitor Ammonia level - Avoid NSAIDs - MVI, Folic and Thiamine Supplement Hypomagnesemia - 2/2 inadequate intake - Will replete - Subsequent level for pharmacy to monitor and replete Medical Non-compliance - He is supposed to be on lactulose and xifaxan - He was set up to follow up with GI last time, unclear if her kept that appointment Chronic: Advanced Liver Disease from Long Hx/o ETOH Abuse Hx/o Esophageal Varices S/p TIPS Pancytopenia 2/2 Liver Disease, Platelet and Hgb at baseline Hypoalbuminemia, 2/2 Liver Disease Albumin level at baseline DM2 Hyperbilubinemia, 2/2 Advanced Liver Disease Obesity with BMI 39.7 (Used to be 44.3 back in Feb 2017) Plan: Admit to Inpatient with Tele Routine AM labs resume home meds but hold until he is more alert and awake Continue lactulose and Xifaxan Accu-check BID AM/HS with ISS coverage Dietary consult for weight and protein wasting management Aspiration and fall precautions GI and DVT PPx: PPI and Compression stockings (Anticoags contraindicated due to low platelet levels) Hold metformin PTOT consult firestop/containment worker/CM for discharge planning Code status: 1
[2017-04-23] MEDS ORDERED: LORazepam 2 MG/ML MDV IV PRN (23:14)
[2017-04-23] MEDS ORDERED: Promethazine 12.5 MG in Sodium Chloride 0.9% 50 ML IV PRN (23:14)
[2017-04-23] MEDS ORDERED: Ondansetron 4 MG/2 ML SDV IV PRN (23:14)
[2017-04-23] MEDS ORDERED: Albuterol/Ipratropium 3.0-0.5 MG/3 ML Neb Soln NEB PRN (23:14)
[2017-04-23] MEDS ORDERED: HYDROmorphone 0.5 MG/0.5 ML Syringe IVPUSH PRN (23:14)
[2017-04-23] MEDS ORDERED: Acetaminophen/HYDROcodone 325-5 MG Tab PO PRN (23:14)
[2017-04-23] MEDS ORDERED: LORazepam 2 MG/ML MDV IVPUSH PRN (23:20)
[2017-04-23] MEDS ORDERED: Metoprolol Tartrate 5 MG/5 ML SDV IVPUSH PRN (23:20)
[2017-04-24] MEDS: Insulin Aspart 100 Units/ML 3 ML Pen SUBCUT SCH ×2 (06:15→16:50)
--- NOTE | 2017-04-24 08:02 | CR ---
Chest: Portable view of the chest was obtained. Comparison: Previous chest x-ray of 02/21/17. Heart size at the upper limits of normal. Tortuous thoracic aorta is seen. Lungs are clear with no acute infiltrates. Impression: 1. Nothing acute is identified on portable chest x-ray. Diagnostic code #2
[2017-04-24] MEDS: Lactulose Soln 10 GM/15 ML 30 ML UD Cup PO SCH ×3 (08:06→21:52)
[2017-04-24] MEDS: Rifaximin 550 MG Tab PO SCH ×2 (08:07→21:53)
[2017-04-24] MEDS: Folic Acid 1 MG Tab PO SCH (08:08)
[2017-04-24] MEDS: Magnesium Oxide 400 MG Tab PO SCH ×2 (08:08→21:52)
[2017-04-24] MEDS: Spironolactone 25 MG Tab PO SCH ×2 (08:08→21:52)
[2017-04-24] MEDS ORDERED: Pantoprazole 40 MG Vial IV SCH (09:00)
--- NOTE | 2017-04-24 11:45 | PCM.PN ---
- General Info Date of Service: 04/24/17 Admission Dx/Problem (Free Text): Admission Diagnosis/Problem Admission Diagnosis/Problem Hepatic encephalopathy Functional Status: Reports: Pain Controlled, Tolerating Diet, Ambulating, Urinating, Other (No BM as of visit ) Pain Score: 0 - Review of Systems General: Reports: No Symptoms HEENT: Reports: No Symptoms Pulmonary: Reports: No Symptoms Cardiovascular: Reports: No Symptoms Gastrointestinal: Reports: No Symptoms Genitourinary: Reports: No Symptoms Musculoskeletal: Reports: No Symptoms Skin: Reports: No Symptoms Neurological: Reports: No Symptoms Psychiatric: Reports: Confusion (Mild confusion and occasional difficulty finding words. Patient is able to maintain conversation and has good questions and mostly appropriate answers). Denies: Depression, Anxiety, Agitation, Cravings Systems Review Comment:: Patient is concerned about getting back to his apartment to sort through his things. Explained how this can be arranged and he relaxes. He also reports this relieves all of his anxiety about the plan. - Patient Data Vitals - Most Recent: Last Vital Signs Temp 98.6 F 04/24/17 08:43 Pulse 72 04/24/17 08:43 Resp 24 H 04/24/17 08:43 BP 131/102 H 04/24/17 08:43 Pulse Ox 96 04/24/17 08:43 Weight - Most Recent: 262 lb 11.2 oz I&O - Last 24 Hours: Intake & Output 04/23/17 04/24/17 04/24/17 22:59 06:59 14:59 Intake Total 0 120 Output Total 600 Balance -600 120 Lab Results Last 24 Hours: Laboratory Results - last 24 hr 04/24/17 04/24/17 04/24/17 Range/Units 06:10 06:10 06:10 WBC 2.97 L (4.23-9.07) K/mm3 RBC 2.70 L (4.63-6.08) M/mm3 Hgb 8.7 L (13.7-17.5) gm/L Hct 25.7 L (40.1-51.0) % MCV 95.2 H (79.0-92.2) fl MCH 32.2 (25.7-32.2) pg MCHC 33.9 (32.2-35.5) g/dl RDW Std Deviation 54.6 H (35.1-43.9) fL Plt Count 56 L (163-337) K/mm3 MPV 9.8 (9.4-12.3) fl Neut % (Auto) 61.3 (34.0-67.9) % Lymph % (Auto) 30.3 (21.8-53.1) % [place] % (Auto) 7.1 (5.3-12.2) % Eos % (Auto) 1.0 (0.8-7.0) Baso % (Auto) 0.3 (0.1-1.2) % Neut # (Auto) 1.82 (1.78-5.38) K/mm3 Lymph # (Auto) 0.90 L (1.32-3.57) K/mm3 [place] # (Auto) 0.21 L (0.30-0.82) K/mm3 Eos # (Auto) 0.03 L (0.04-0.54) K/mm3 Baso # (Auto) 0.01 (0.01-0.08) K/mm3 Manual Slide Review Abnormal smear Sodium 139 (136-145) mEq/L Potassium 3.6 (3.5-5.1) mEq/L Chloride 110 H (98-107) mEq/L Carbon Dioxide 22 (21-32) mEq/L Anion Gap 10.6 (5-15) BUN 9 (7-18) mg/dL Creatinine 0.7 (0.7-1.3) mg/dL Est Cr Clr Drug Dosing 116.43 mL/min Estimated GFR (MDRD) > 60 (>60) mL/min BUN/Creatinine Ratio 12.9 L (14-18) Glucose 111 H (74-106) mg/dL POC Glucose (70-105) mg/dL Calcium 7.9 L (8.5-10.1) mg/dL Magnesium 1.5 L (1.8-2.4) mg/dl Total Bilirubin 2.1 H (0.2-1.0) mg/dL AST 28 (15-37) U/L ALT 21 (16-63) U/L Alkaline Phosphatase 70 (46-116) U/L Ammonia 137 H (11-32) umol/L Total Protein 6.6 (6.4-8.2) g/dl Albumin 1.6 L (3.4-5.0) g/dl Globulin 5.0 gm/dL Albumin/Globulin Ratio 0.3 L (1-2) 04/24/17 Range/Units 06:12 WBC (4.23-9.07) K/mm3 RBC (4.63-6.08) M/mm3 Hgb (13.7-17.5) gm/L Hct (40.1-51.0) % MCV (79.0-92.2) fl MCH (25.7-32.2) pg MCHC (32.2-35.5) g/dl RDW Std Deviation (35.1-43.9) fL Plt Count (163-337) K/mm3 MPV (9.4-12.3) fl Neut % (Auto) (34.0-67.9) % Lymph % (Auto) (21.8-53.1) % Bonner % (Auto) (5.3-12.2) % Eos % (Auto) (0.8-7.0) Baso % (Auto) (0.1-1.2) % Neut # (Auto) (1.78-5.38) K/mm3 Lymph # (Auto) (1.32-3.57) K/mm3 [place]ner # (Auto) (0.30-0.82) K/mm3 Eos # (Auto) (0.04-0.54) K/mm3 Baso # (Auto) (0.01-0.08) K/mm3 Manual Slide Review Sodium (136-145) mEq/L Potassium (3.5-5.1) mEq/L Chloride (98-107) mEq/L Carbon Dioxide (21-32) mEq/L Anion Gap (5-15) BUN (7-18) mg/dL Creatinine (0.7-1.3) mg/dL Est Cr Clr Drug Dosing mL/min Estimated GFR (MDRD) (>60) mL/min BUN/Creatinine Ratio (14-18) Glucose (74-106) mg/dL POC Glucose 101 (70-105) mg/dL Calcium (8.5-10.1) mg/dL Magnesium (1.8-2.4) mg/dl Total Bilirubin (0.2-1.0) mg/dL AST (15-37) U/L ALT (16-63) U/L Alkaline Phosphatase (46-116) U/L Ammonia (11-32) umol/L Total Protein (6.4-8.2) g/dl Albumin (3.4-5.0) g/dl Globulin gm/dL Albumin/Globulin Ratio (1-2) Med Orders - Current: Current Medications Hydrocodone Bitart/Acetaminophen ([place] 325-5 Mg) 1 tab PO Q4H PRN PRN Reason: Pain (moderate 4-6) Albuterol/Ipratropium (Duoneb 3.0-0.5 Mg/3 Ml) 3 ml NEB Q4H PRN PRN Reason: Shortness Of Breath/wheezing Folic Acid (Folic Acid) 1 mg PO DAILY [facility] Last Admin: 04/24/17 08:08 Dose: 1 mg Hydromorphone HCl (Dilaudid) 0.25 mg IVPUSH Q2H PRN PRN Reason: Pain (severe 7-10) Promethazine HCl 12.5 mg/ (Sodium Chloride) 50.5 mls @ 100 mls/hr IV Q6H PRN PRN Reason: Nausea/Vomiting Insulin Aspart (Novolog) 0 unit SUBCUT [facility] PRN Reason: Protocol Last Admin: 04/24/17 06:15 Dose: Not Given Lactulose (Cephulac) 40 gm PO TID [facility] Last Admin: 04/24/17 08:06 Dose: 40 gm Lorazepam (Ativan) 1 mg IV Q6H PRN PRN Reason: Anxiety Lorazepam (Ativan) 2 mg IVPUSH Q4H PRN PRN Reason: Seizures Magnesium Oxide (Magnesium Oxide) 400 mg PO BID [facility] Last Admin: 04/24/17 08:08 Dose: 400 mg Metoprolol Tartrate (Lopressor) 5 mg IVPUSH Q4H PRN PRN Reason: Tachycardia Multivitamins (Thera) 1 each PO BEDTIME [facility] Ondansetron HCl (Zofran) 4 mg IV Q6H PRN PRN Reason: Nausea/Vomiting Pantoprazole Sodium (Protonix) 40 mg PO Q12HR [facility] Rifaximin (Xifaxan) 550 mg PO BID [facility] Last Admin: 04/24/17 08:07 Dose: 550 mg Spironolactone (Aldactone) 50 mg PO BID [facility] Last Admin: 04/24/17 08:08 Dose: 50 mg Thiamine HCl (Vitamin B-1) 100 mg PO BEDTIME [facility] Discontinued Medications Lactulose (Cephulac) 40 gm PO ONETIME ONE Stop: 04/23/17 21:39 Last Admin: 04/23/17 21:57 Dose: 40 gm Pantoprazole Sodium (Protonix Iv) 40 mg IV Q12HR [facility] Last Admin: 04/24/17 08:08 Dose: 40 mg - Exam Quality Assessment: DVT Prophylaxis. No: Skin Breakdown General: Alert, Cooperative, Other (Mild confusion as noted in subjective update ) HEENT: Pupils Equal, Pupils Reactive, Mucous Membr. Moist/[place] Neck: Supple, Trachea Midline, No JVD Lungs: Clear to Auscultation, Decreased Breath Sounds Cardiovascular: Regular Rate, Regular Rhythm GI/Abdominal Exam: Normal Bowel Sounds, Soft, Non-Tender, No Organomegaly, No Distention, No Abnormal Bruit, No Mass, Pelvis Stable, Other (Appears to have some ascites ) (Male) Exam: Deferred Back Exam: Normal Inspection, Full Range of Motion Extremities: Normal Range of Motion, Non-Tender, Normal Capillary Refill, Pedal Edema (2+ ). No: Leg Pain, Limited Range of Motion, Increased Warmth, Pallor, Redness Peripheral Pulses: 1+: Posterior Tibial (L), Posterior Tibial (R), Dorsalis Pedis (L), Dorsalis Pedis (R), 2+: Radial (L), Radial (R) Skin: Warm, Dry, Intact Neurological: Other (Patient has greatly improved from his admssion condition. He is still mildly confused as noted above. ) Psy/Mental Status: Alert, Normal Affect, Normal Mood - Problem List & Annotations (1) Hepatic encephalopathy SNOMED Code(s): 62079829 Code(s): K72.90 - HEPATIC FAILURE, UNSPECIFIED WITHOUT COMA Status: Acute Priority: High Current Visit: Yes (2) Cirrhosis of liver SNOMED Code(s): 94324528 Code(s): K74.60 - UNSPECIFIED CIRRHOSIS OF LIVER Status: Chronic Priority : High Current Visit: Yes (3) Diabetes mellitus type 2 SNOMED Code(s): 49557153 Code(s): E11.9 - TYPE 2 DIABETES MELLITUS WITHOUT COMPLICATIONS Status: Chronic Priority: High Current Visit: Yes (4) Hyperammonemia SNOMED Code(s): 3807870 Code(s): E72.20 - DISORDER OF UREA CYCLE METABOLISM, UNSPECIFIED Status: Acute Priority: High Current Visit: Yes (5) Obesity SNOMED Code(s): 736665747 Code(s): E66.9 - OBESITY, UNSPECIFIED Status: Chronic Priority: Medium Current Visit: No (6) Pancytopenia SNOMED Code(s): 277738262 Code(s): D61.818 - OTHER PANCYTOPENIA Status: Chronic Priority: Medium Current Visit: No (7) Hypomagnesemia SNOMED Code(s): 622003447 Code(s): E83.42 - HYPOMAGNESEMIA Status: Acute Priority: High Current Visit: No - Problem List Review Problem List Initiated/Reviewed/Updated: Yes - Plan Plan:: Assessment/Plan: Acute: Hepatic Encephalopathy - Acute on Chronic - 2/2 Advanced Liver Disease and Medical Non-compliance - Head CT scan: no acute intra-cranial abnormality - Ammonia level is 141 -->137 - CXR, UA and UDS all negative - Unsure if he is taking his lactulose and xifaxan - Resume Home Meds - Monitor Ammonia level - Avoid NSAIDs - MVI, Folic and Thiamine Supplement Hypomagnesemia - 2/2 inadequate intake - Will replete - Subsequent level for pharmacy to monitor and replete Medical Non-compliance - He is supposed to be on lactulose and xifaxan - He was set up to follow up with GI last time, unclear if her kept that appointment Chronic: Advanced Liver Disease from Long Hx/o ETOH Abuse Hx/o Esophageal Varices S/p TIPS Pancytopenia 2/2 Liver Disease, Platelet and Hgb at baseline Hypoalbuminemia, 2/2 Liver Disease Albumin level at baseline DM2 Hyperbilubinemia, 2/2 Advanced Liver Disease Obesity with BMI 39.7 (Used to be 44.3 back in Feb 2017) Plan: Admit to Inpatient with Tele Routine AM labs Resume home meds Continue lactulose and Xifaxan Accu-check BID AM/HS with ISS coverage Dietary consult for weight and protein wasting management Aspiration and fall precautions GI and DVT PPx: PPI and Compression stockings (Anticoags contraindicated due to low platelet levels) Hold metformin PT/OT consult sheet ironworker/CM for discharge planning Code status: 1
[2017-04-24] MEDS ORDERED: Magnesium Sulfate/Water 2 GM in Premix Bag 1 BAG IV ONE (12:45)
[2017-04-24] MEDS: Multivitamins,Therapeutic Tab PO SCH ×2 (19:39→21:52)
[2017-04-24] MEDS ORDERED: Thiamine 100 MG Tab PO SCH (21:00)
[2017-04-24] MEDS: Pantoprazole 40 MG Tab.CR PO SCH (21:52)
[2017-04-25] MEDS: Rifaximin 550 MG Tab PO SCH (08:34)
[2017-04-25] MEDS: Lactulose Soln 10 GM/15 ML 30 ML UD Cup PO SCH ×2 (08:34→15:17)
[2017-04-25] MEDS: Spironolactone 25 MG Tab PO SCH (08:35)
[2017-04-25] MEDS: Magnesium Oxide 400 MG Tab PO SCH (08:35)
[2017-04-25] MEDS: Folic Acid 1 MG Tab PO SCH (08:36)
[2017-04-25] MEDS: Pantoprazole 40 MG Tab.CR PO SCH (08:36)
--- NOTE | 2017-04-25 09:06 | PCM.PN ---
- General Info Date of Service: 04/25/17 Admission Dx/Problem (Free Text): Admission Diagnosis/Problem Admission Diagnosis/Problem Hepatic encephalopathy Functional Status: Reports: Pain Controlled (no pain), Tolerating Diet, Ambulating, Urinating. Denies: New Symptoms - Review of Systems General: Reports: No Symptoms HEENT: Reports: No Symptoms Pulmonary: Reports: No Symptoms Cardiovascular: Reports: No Symptoms Gastrointestinal: Reports: No Symptoms Genitourinary: Reports: No Symptoms Musculoskeletal: Reports: No Symptoms Skin: Reports: No Symptoms Neurological: Reports: No Symptoms Psychiatric: Reports: No Symptoms Systems Review Comment:: Patient denies any concerns currently. He reports feeling tired prior to his next known memory of being in the hospital. He reports he has been following his medication regimen religiously. He is unsure what happened to cause him to be in the hospital. - Patient Data Vitals - Most Recent: Last Vital Signs Temp 99.0 F 04/25/17 08:20 Pulse 73 04/25/17 08:20 Resp 12 04/25/17 08:20 BP 121/57 L 04/25/17 08:20 Pulse Ox 97 04/25/17 08:20 Weight - Most Recent: 266 lb 11.2 oz I&O - Last 24 Hours: Intake & Output 04/24/17 04/25/17 04/25/17 22:59 06:59 14:59 Intake Total 1130 550 Output Total 600 600 Balance 530 -50 Lab Results Last 24 Hours: Laboratory Results - last 24 hr 04/24/17 04/24/17 04/25/17 Range/Units 12:05 16:42 05:53 WBC (4.23-9.07) K/mm3 RBC (4.63-6.08) M/mm3 Hgb (13.7-17.5) gm/L Hct (40.1-51.0) % MCV (79.0-92.2) fl MCH (25.7-32.2) pg MCHC (32.2-35.5) g/dl RDW Std Deviation (35.1-43.9) fL Plt Count (163-337) K/mm3 MPV (9.4-12.3) fl Neut % (Auto) (34.0-67.9) % Lymph % (Auto) (21.8-53.1) % [place] % (Auto) (5.3-12.2) % Eos % (Auto) (0.8-7.0) Baso % (Auto) (0.1-1.2) % Neut # (Auto) (1.78-5.38) K/mm3 Lymph # (Auto) (1.32-3.57) K/mm3 [place] # (Auto) (0.30-0.82) K/mm3 Eos # (Auto) (0.04-0.54) K/mm3 Baso # (Auto) (0.01-0.08) K/mm3 Manual Slide Review Sodium (136-145) mEq/L Potassium (3.5-5.1) mEq/L Chloride (98-107) mEq/L Carbon Dioxide (21-32) mEq/L Anion Gap (5-15) BUN (7-18) mg/dL Creatinine (0.7-1.3) mg/dL Est Cr Clr Drug Dosing mL/min Estimated GFR (MDRD) (>60) mL/min BUN/Creatinine Ratio (14-18) Glucose (74-106) mg/dL POC Glucose 329 H 210 H 256 H (70-105) mg/dL Calcium (8.5-10.1) mg/dL Total Bilirubin (0.2-1.0) mg/dL AST (15-37) U/L ALT (16-63) U/L Alkaline Phosphatase (46-116) U/L Total Protein (6.4-8.2) g/dl Albumin (3.4-5.0) g/dl Globulin gm/dL Albumin/Globulin Ratio (1-2) 04/25/17 04/25/17 Range/Units 06:20 06:20 WBC 2.74 L (4.23-9.07) K/mm3 RBC 2.72 L (4.63-6.08) M/mm3 Hgb 8.9 L (13.7-17.5) gm/L Hct 25.9 L (40.1-51.0) % MCV 95.2 H (79.0-92.2) fl MCH 32.7 H (25.7-32.2) pg MCHC 34.4 (32.2-35.5) g/dl RDW Std Deviation 54.1 H (35.1-43.9) fL Plt Count 45 L (163-337) K/mm3 MPV 9.7 (9.4-12.3) fl Neut % (Auto) 60.6 (34.0-67.9) % Lymph % (Auto) 27.7 (21.8-53.1) % [place] % (Auto) 9.5 (5.3-12.2) % Eos % (Auto) 1.5 (0.8-7.0) Baso % (Auto) 0.7 (0.1-1.2) % Neut # (Auto) 1.66 L (1.78-5.38) K/mm3 Lymph # (Auto) 0.76 L (1.32-3.57) K/mm3 [place] # (Auto) 0.26 L (0.30-0.82) K/mm3 Eos # (Auto) 0.04 (0.04-0.54) K/mm3 Baso # (Auto) 0.02 (0.01-0.08) K/mm3 Manual Slide Review Abnormal smear Sodium 138 (136-145) mEq/L Potassium 3.8 (3.5-5.1) mEq/L Chloride 109 H (98-107) mEq/L Carbon Dioxide 22 (21-32) mEq/L Anion Gap 10.8 (5-15) BUN 9 (7-18) mg/dL Creatinine 0.8 (0.7-1.3) mg/dL Est Cr Clr Drug Dosing 101.54 mL/min Estimated GFR (MDRD) > 60 (>60) mL/min BUN/Creatinine Ratio 11.3 L (14-18) Glucose 263 H (74-106) mg/dL POC Glucose (70-105) mg/dL Calcium 7.7 L (8.5-10.1) mg/dL Total Bilirubin 1.8 H (0.2-1.0) mg/dL AST 31 (15-37) U/L ALT 23 (16-63) U/L Alkaline Phosphatase 77 (46-116) U/L Total Protein 6.6 (6.4-8.2) g/dl Albumin 1.6 L (3.4-5.0) g/dl Globulin 5.0 gm/dL Albumin/Globulin Ratio 0.3 L (1-2) Med Orders - Current: Current Medications Hydrocodone Bitart/Acetaminophen ([place] 325-5 Mg) 1 tab PO Q4H PRN PRN Reason: Pain (moderate 4-6) Albuterol/Ipratropium (Duoneb 3.0-0.5 Mg/3 Ml) 3 ml NEB Q4H PRN PRN Reason: Shortness Of Breath/wheezing Folic Acid (Folic Acid) 1 mg PO DAILY [facility] Last Admin: 04/25/17 08:36 Dose: 1 mg Hydromorphone HCl (Dilaudid) 0.25 mg IVPUSH Q2H PRN PRN Reason: Pain (severe 7-10) Promethazine HCl 12.5 mg/ (Sodium Chloride) 50.5 mls @ 100 mls/hr IV Q6H PRN PRN Reason: Nausea/Vomiting Insulin Aspart (Novolog) 0 unit SUBCUT [facility] PRN Reason: Protocol Last Admin: 04/24/17 16:50 Dose: 2 units Lactulose (Cephulac) 40 gm PO TID [facility] Last Admin: 04/25/17 08:34 Dose: 40 gm Lorazepam (Ativan) 1 mg IV Q6H PRN PRN Reason: Anxiety Lorazepam (Ativan) 2 mg IVPUSH Q4H PRN PRN Reason: Seizures Magnesium Oxide (Magnesium Oxide) 400 mg PO BID [facility] Last Admin: 04/25/17 08:35 Dose: 400 mg Magnesium Sulfate (Pharmacy To Dose - Magnesium Replacement) 0 dose .XX ASDIRECTED PRN PRN Reason: RX TO WATCH MAG LEVELS Metoprolol Tartrate (Lopressor) 5 mg IVPUSH Q4H PRN PRN Reason: Tachycardia Multivitamins (Thera) 1 each PO BEDTIME [facility] Last Admin: 04/24/17 21:52 Dose: 1 each Ondansetron HCl (Zofran) 4 mg IV Q6H PRN PRN Reason: Nausea/Vomiting Pantoprazole Sodium (Protonix) 40 mg PO Q12HR [facility] Last Admin: 04/25/17 08:36 Dose: 40 mg Rifaximin (Xifaxan) 550 mg PO BID [facility] Last Admin: 04/25/17 08:34 Dose: 550 mg Spironolactone (Aldactone) 50 mg PO BID [facility] Last Admin: 04/25/17 08:35 Dose: 50 mg Thiamine HCl (Vitamin B-1) 100 mg PO BEDTIME [facility] Last Admin: 04/24/17 21:52 Dose: 100 mg Discontinued Medications Magnesium Sulfate 2 gm/ Premix 50 mls @ 25 mls/hr IV ONETIME ONE Stop: 04/24/17 14:44 Last Admin: 04/24/17 13:23 Dose: 25 mls/hr Lactulose (Cephulac) 40 gm PO ONETIME ONE Stop: 04/23/17 21:39 Last Admin: 04/23/17 21:57 Dose: 40 gm Pantoprazole Sodium (Protonix Iv) 40 mg IV Q12HR [facility] Last Admin: 04/24/17 08:08 Dose: 40 mg - Exam Quality Assessment: DVT Prophylaxis General: Alert, Oriented, Cooperative HEENT: Pupils Equal, Pupils Reactive, Mucous Membr. Moist/[place] Neck: Supple, Trachea Midline, No JVD Lungs: Clear to Auscultation, Normal Respiratory Effort Cardiovascular: Regular Rate, Regular Rhythm, No Murmurs GI/Abdominal Exam: Normal Bowel Sounds, Soft, Non-Tender, No Organomegaly, No Distention, No Abnormal Bruit, No Mass, Pelvis Stable (Male) Exam: Deferred Back Exam: Normal Inspection Extremities: Normal Inspection, Normal Range of Motion, Non-Tender, Normal Capillary Refill, Pedal Edema (2+) Peripheral Pulses: 1+: Posterior Tibial (L), Posterior Tibial (R), 2+: Radial (L ), Radial (R), Dorsalis Pedis (L), Dorsalis Pedis (R) Skin: Warm, Dry, Intact Neurological: No New Focal Deficit Psy/Mental Status: Alert, Normal Affect, Normal Mood Physical Findings Comments:: Patient appears recovering well. No confusion noted during exam. Answers questions appropriately. Ascites noted in the abdominal region, although this appears to be normal for the patient. - Problem List & Annotations (1) Hepatic encephalopathy SNOMED Code(s): 62574765 Code(s): K72.90 - HEPATIC FAILURE, UNSPECIFIED WITHOUT COMA Status: Resolved Priority: High Current Visit: Yes (2) Cirrhosis of liver SNOMED Code(s): 41652871 Code(s): K74.60 - UNSPECIFIED CIRRHOSIS OF LIVER Status: Chronic Priority : High Current Visit: Yes (3) Diabetes mellitus type 2 SNOMED Code(s): 75794586 Code(s): E11.9 - TYPE 2 DIABETES MELLITUS WITHOUT COMPLICATIONS Status: Chronic Priority: High Current Visit: Yes (4) Hyperammonemia SNOMED Code(s): 4172524 Code(s): E72.20 - DISORDER OF UREA CYCLE METABOLISM, UNSPECIFIED Status: Acute Priority: High Current Visit: Yes (5) Obesity SNOMED Code(s): 437913896 Code(s): E66.9 - OBESITY, UNSPECIFIED Status: Chronic Priority: Medium Current Visit: No (6) Pancytopenia SNOMED Code(s): 602093297 Code(s): D61.818 - OTHER PANCYTOPENIA Status: Chronic Priority: Medium Current Visit: No (7) Hypomagnesemia SNOMED Code(s): 744905737 Code(s): E83.42 - HYPOMAGNESEMIA Status: Acute Priority: High Current Visit: Yes - Problem List Review Problem List Initiated/Reviewed/Updated: Yes - My Orders Last 24 Hours: My Active Orders 04/24/17 12:30 Magnesium Rep Pharmacy to Dose [Pharmacy to Dose - Magnesium Replacement] 0 dose .XX ASDIRECTED PRN - Plan Plan:: Assessment/Plan: Acute: Hepatic Encephalopathy - Acute on Chronic - 2/2 Advanced Liver Disease and Medical Non-compliance - Head CT scan: no acute intra-cranial abnormality - Ammonia level is 141 -->137--->176 - CXR, UA and UDS all negative - Unsure if he is taking his lactulose and xifaxan - Resume Home Meds - Monitor Ammonia level - Avoid NSAIDs - MVI, Folic and Thiamine Supplement - Pt. now A&OX3 Hypomagnesemia - 2/2 inadequate intake - Will replete - Subsequent level for pharmacy to monitor and replete Medical Non-compliance - He is supposed to be on lactulose and xifaxan - He was set up to follow up with GI last time, unclear if her kept that appointment Chronic: Advanced Liver Disease from Long Hx/o ETOH Abuse Hx/o Esophageal Varices S/p TIPS Pancytopenia 2/2 Liver Disease, Platelet and Hgb at baseline Hypoalbuminemia, 2/2 Liver Disease Albumin level at baseline DM2 Hyperbilubinemia, 2/2 Advanced Liver Disease Obesity with BMI 39.7 (Used to be 44.3 back in Feb 2017) Plan: Admit to Inpatient with Tele Routine AM labs resume home meds Continue lactulose and Xifaxan Accu-check BID AM/HS with ISS coverage Dietary consult for weight and protein wasting management Aspiration and fall precautions GI and DVT PPx: PPI and Compression stockings (Anticoags contraindicated due to low platelet levels) Hold metformin PTOT consult car worker helper/CM for discharge planning Code status: 1
[2017-04-25] MEDS: Insulin Aspart 100 Units/ML 3 ML Pen SUBCUT SCH (09:57)
[2017-04-25] MEDS: Magnesium Sulfate/Water 2 GM in Premix Bag 1 BAG IV SCH ×2 (10:01→11:57)
--- NOTE | 2017-04-25 11:53 | PCM.DCSUM1 ---
Discharge Summary - Hospital Course Free Text/Narrative:: Mr. Kaden Griffin is a 56-year-old morbidly obese male with past medical history of advanced liver disease, history of GI bleed status post TIPS, GERD, history of chronic hepatic encephalopathy, history of pancytopenia, history of alcohol abuse, type 2 diabetes, protein deficiency, and medical noncompliance who presented to the emergency department due to unresponsiveness. Per ED notes, patient was found unresponsive today while he was sitting on the toilet for several hours. No family members present at bedside when he was brought in to the emergency department. Patient is known to the hospitalist team from previous multiple admissions related to hepatic encephalopathy. His initial workup in the emergency department shows a CBC remarkable for WBC of 3.15, RBC of 2.94, hemoglobin 9.6, hematocrit 27.7, MCV of 94.2, and platelet of 53. His PT is 14.3, INR is 1.29 and APTT is 39. His chemistry is remarkable for chloride of 109, glucose of 162, calcium of 8.2, magnesium 1.7, total bilirubin at 2.3, ammonia 141, and albumin of 2. His UA and UDS are both negative. His blood alcohol level is 0. His Head CT scan report reads nothing acute is seen on a non-contrasted CT scan. Patient was subsequently admitted for acute on chronic encephalopathy secondary to advanced liver disease. He is full code. His mentation improved rapidly throughout his hospital stay. Upon discharge he noted no confusion. He answered questions appropriately. He maintains that he has been taking his medications as prescribed however pharmacy contacted his local pharmacy and it was found he has not filled his lactulose for some time. He denies this and states that he has had some left over from before. He was advised of the importance of taking his medication. Labs throughout his hospital stay showed pancytopenia. This is not new for this patient. His magnesium was low and supplemented throughout his stay. He is on home magnesium normally. Has a note ammonia decreased from 141 to 137 and then I'll be raised to 176. This result was discussed with Dr. Candelario. He's been eating significant amounts however his protein intake was capped due to fears of rising ammonia levels. As noted before even with this ammonia level increase his mentation has returned to baseline and there is no confusion whatsoever. Will discharge today with new prescriptions for his medications so we can refill. It is strongly recommended patient follow-up with his primary care provider within one week. He should also follow-up with gastroenterology as soon as possible as patient has had multiple episodes of hepatic encephalopathy. Discussed findings and plans for discharge with patient. He agrees to this. - Discharge Data Discharge Date: 04/25/17 (Admit date: 04/23/17) Discharge Disposition: Home, Self-Care 01 Condition: Good - Discharge Diagnosis/Problem(s) (1) Hepatic encephalopathy SNOMED Code(s): 13789125 ICD Code: K72.90 - HEPATIC FAILURE, UNSPECIFIED WITHOUT COMA Status: Resolved Priority: High Current Visit: Yes (2) Cirrhosis of liver SNOMED Code(s): 07017053 ICD Code: K74.60 - UNSPECIFIED CIRRHOSIS OF LIVER Status: Chronic Priority: High Current Visit: Yes (3) Diabetes mellitus type 2 SNOMED Code(s): 12140965 ICD Code: E11.9 - TYPE 2 DIABETES MELLITUS WITHOUT COMPLICATIONS Status: Chronic Priority: High Current Visit: Yes (4) Hyperammonemia SNOMED Code(s): 2512391 ICD Code: E72.20 - DISORDER OF UREA CYCLE METABOLISM, UNSPECIFIED Status: Acute Priority: High Current Visit: Yes (5) Obesity SNOMED Code(s): 209201981 ICD Code: E66.9 - OBESITY, UNSPECIFIED Status: Chronic Priority: Medium Current Visit: No (6) Pancytopenia SNOMED Code(s): 555769265 ICD Code: D61.818 - OTHER PANCYTOPENIA Status: Chronic Priority: Medium Current Visit: No (7) Hypomagnesemia SNOMED Code(s): 186084779 ICD Code: E83.42 - HYPOMAGNESEMIA Status: Resolved Priority: High Current Visit: Yes - Patient Summary/Data Consults: Consultations 04/23/17 23:18 Consult to Case Management [CONS] Routine Consult to Marine Engineer [employer] [CONS] Routine Consult to Systems Test Technician [CONS] Routine Consult to Spiritual Care [CONS] Routine OT Evaluation and Treatment [CONS] Routine PT Evaluation and Treatment [CONS] Routine - Patient Instructions Diet: Heart Healthy Diet, Diabetic Diet Driving: Do Not Drive Showering/Bathing: May Shower Notify Provider of: Fever, Increased Pain, Nausea and/or Vomiting (Increased confusion, Chest pain, ) Other/Special Instructions: -It is very importatn you take your home medications as prescaribed. You will continue to have an increase in your ammonia and will become confused, ending up in the hospital if you do not. - Follow-up with your primary care provider within one week of discharge. -Follow -up with gastroenterology regarding your prescriptions and management. Be sure to let them know you were hospitalized. - Discharge Plan Prescriptions/Med Rec: Lactulose [Cephulac] 40 gm PO TID #15 cup Magnesium Oxide 400 mg PO BID #30 tablet Thiamine [Vitamin B-1] 100 mg PO BEDTIME #30 tablet Home Medications: Home Meds Pantoprazole [ProTONIX] 40 mg PO ACBREAKFAST #30 tab.cr 12/08/15 [Rx] Spironolactone 50 mg PO BID 03/03/16 [History] Rifaximin [Xifaxan] 550 mg PO BID 06/13/16 [History] metFORMIN [Glucophage] 850 mg PO BID 06/13/16 [History] Folic Acid 1 mg PO DAILY tablet 04/25/17 [Rx] Lactulose [Cephulac] 40 gm PO TID #15 cup 04/25/17 [Rx] Magnesium Oxide 400 mg PO BID #30 tablet 04/25/17 [Rx] Thiamine [Vitamin B-1] 100 mg PO BEDTIME #30 tablet 04/25/17 [Rx] Patient Handouts: Hepatic Encephalopathy, Ammonia Test, Cirrhosis, Lactulose oral solution Forms: ED Department Discharge Referrals: Allan Redmond PA-C [Physician Meter Tester [employer]] - - Discharge Summary/Plan Comment DC Time >30 min.: Yes (45) - General Info Date of Service: 04/25/17 (Admit date: 04/23/17) Functional Status: Reports: Tolerating Diet, Ambulating, Urinating. Denies: New Symptoms - Review of Systems General: Reports: No Symptoms HEENT: Reports: No Symptoms Pulmonary: Reports: No Symptoms Cardiovascular: Reports: No Symptoms Gastrointestinal: Reports: No Symptoms Genitourinary: Reports: No Symptoms Musculoskeletal: Reports: No Symptoms Skin: Reports: No Symptoms Neurological: Reports: No Symptoms Psychiatric: Reports: No Symptoms Systems Review Comment: Patient denies any concerns. Reports he feels his confusion has completely resolved. - Patient Data Vitals - Most Recent: Last Vital Signs Temp 99.0 F 04/25/17 08:20 Pulse 73 04/25/17 08:20 Resp 12 04/25/17 08:20 BP 121/57 L 04/25/17 08:20 Pulse Ox 97 04/25/17 08:20 Weight - Most Recent: 266 lb 11.2 oz I&O - Last 24 hours: Intake & Output 04/24/17 04/25/17 04/25/17 22:59 06:59 14:59 Intake Total 1130 550 240 Output Total 600 600 Balance 530 -50 240 Lab Results - Last 24 hrs: Laboratory Results - last 24 hr 04/24/17 04/24/17 04/25/17 Range/Units 12:05 16:42 05:53 WBC (4.23-9.07) K/mm3 RBC (4.63-6.08) M/mm3 Hgb (13.7-17.5) gm/L Hct (40.1-51.0) % MCV (79.0-92.2) fl MCH (25.7-32.2) pg MCHC (32.2-35.5) g/dl RDW Std Deviation (35.1-43.9) fL Plt Count (163-337) K/mm3 MPV (9.4-12.3) fl Neut % (Auto) (34.0-67.9) % Lymph % (Auto) (21.8-53.1) % [place] % (Auto) (5.3-12.2) % Eos % (Auto) (0.8-7.0) Baso % (Auto) (0.1-1.2) % Neut # (Auto) (1.78-5.38) K/mm3 Lymph # (Auto) (1.32-3.57) K/mm3 [place] # (Auto) (0.30-0.82) K/mm3 Eos # (Auto) (0.04-0.54) K/mm3 Baso # (Auto) (0.01-0.08) K/mm3 Manual Slide Review Sodium (136-145) mEq/L Potassium (3.5-5.1) mEq/L Chloride (98-107) mEq/L Carbon Dioxide (21-32) mEq/L Anion Gap (5-15) BUN (7-18) mg/dL Creatinine (0.7-1.3) mg/dL Est Cr Clr Drug Dosing mL/min Estimated GFR (MDRD) (>60) mL/min BUN/Creatinine Ratio (14-18) Glucose (74-106) mg/dL POC Glucose 329 H 210 H 256 H (70-105) mg/dL Calcium (8.5-10.1) mg/dL Magnesium (1.8-2.4) mg/dl Total Bilirubin (0.2-1.0) mg/dL AST (15-37) U/L ALT (16-63) U/L Alkaline Phosphatase (46-116) U/L Ammonia (11-32) umol/L Total Protein (6.4-8.2) g/dl Albumin (3.4-5.0) g/dl Globulin gm/dL Albumin/Globulin Ratio (1-2) 04/25/17 04/25/17 04/25/17 Range/Units 06:20 06:20 06:20 WBC 2.74 L (4.23-9.07) K/mm3 RBC 2.72 L (4.63-6.08) M/mm3 Hgb 8.9 L (13.7-17.5) gm/L Hct 25.9 L (40.1-51.0) % MCV 95.2 H (79.0-92.2) fl MCH 32.7 H (25.7-32.2) pg MCHC 34.4 (32.2-35.5) g/dl RDW Std Deviation 54.1 H (35.1-43.9) fL Plt Count 45 L (163-337) K/mm3 MPV 9.7 (9.4-12.3) fl Neut % (Auto) 60.6 (34.0-67.9) % Lymph % (Auto) 27.7 (21.8-53.1) % [place] % (Auto) 9.5 (5.3-12.2) % Eos % (Auto) 1.5 (0.8-7.0) Baso % (Auto) 0.7 (0.1-1.2) % Neut # (Auto) 1.66 L (1.78-5.38) K/mm3 Lymph # (Auto) 0.76 L (1.32-3.57) K/mm3 [place] # (Auto) 0.26 L (0.30-0.82) K/mm3 Eos # (Auto) 0.04 (0.04-0.54) K/mm3 Baso # (Auto) 0.02 (0.01-0.08) K/mm3 Manual Slide Review Abnormal smear Sodium 138 (136-145) mEq/L Potassium 3.8 (3.5-5.1) mEq/L Chloride 109 H (98-107) mEq/L Carbon Dioxide 22 (21-32) mEq/L Anion Gap 10.8 (5-15) BUN 9 (7-18) mg/dL Creatinine 0.8 (0.7-1.3) mg/dL Est Cr Clr Drug Dosing 101.54 mL/min Estimated GFR (MDRD) > 60 (>60) mL/min BUN/Creatinine Ratio 11.3 L (14-18) Glucose 263 H (74-106) mg/dL POC Glucose (70-105) mg/dL Calcium 7.7 L (8.5-10.1) mg/dL Magnesium 1.6 L (1.8-2.4) mg/dl Total Bilirubin 1.8 H (0.2-1.0) mg/dL AST 31 (15-37) U/L ALT 23 (16-63) U/L Alkaline Phosphatase 77 (46-116) U/L Ammonia (11-32) umol/L Total Protein 6.6 (6.4-8.2) g/dl Albumin 1.6 L (3.4-5.0) g/dl Globulin 5.0 gm/dL Albumin/Globulin Ratio 0.3 L (1-2) // Range/Units 08:40 WBC (4.23-9.07) K/mm3 RBC (4.63-6.08) M/mm3 Hgb (13.7-17.5) gm/L Hct (40.1-51.0) % MCV (79.0-92.2) fl MCH (25.7-32.2) pg MCHC (32.2-35.5) g/dl RDW Std Deviation (35.1-43.9) fL Plt Count (163-337) K/mm3 MPV (9.4-12.3) fl Neut % (Auto) (34.0-67.9) % Lymph % (Auto) (21.8-53.1) % [place] % (Auto) (5.3-12.2) % Eos % (Auto) (0.8-7.0) Baso % (Auto) (0.1-1.2) % Neut # (Auto) (1.78-5.38) K/mm3 Lymph # (Auto) (1.32-3.57) K/mm3 [place] # (Auto) (0.30-0.82) K/mm3 Eos # (Auto) (0.04-0.54) K/mm3 Baso # (Auto) (0.01-0.08) K/mm3 Manual Slide Review Sodium (136-145) mEq/L Potassium (3.5-5.1) mEq/L Chloride (98-107) mEq/L Carbon Dioxide (21-32) mEq/L Anion Gap (5-15) BUN (7-18) mg/dL Creatinine (0.7-1.3) mg/dL Est Cr Clr Drug Dosing mL/min Estimated GFR (MDRD) (>60) mL/min BUN/Creatinine Ratio (14-18) Glucose (74-106) mg/dL POC Glucose (70-105) mg/dL Calcium (8.5-10.1) mg/dL Magnesium (1.8-2.4) mg/dl Total Bilirubin (0.2-1.0) mg/dL AST (15-37) U/L ALT (16-63) U/L Alkaline Phosphatase (46-116) U/L Ammonia 179 H (11-32) umol/L Total Protein (6.4-8.2) g/dl Albumin (3.4-5.0) g/dl Globulin gm/dL Albumin/Globulin Ratio (1-2) Med Orders - Current: Current Medications Hydrocodone Bitart/Acetaminophen ([place] 325-5 Mg) 1 tab PO Q4H PRN PRN Reason: Pain (moderate 4-6) Albuterol/Ipratropium (Duoneb 3.0-0.5 Mg/3 Ml) 3 ml NEB Q4H PRN PRN Reason: Shortness Of Breath/wheezing Folic Acid (Folic Acid) 1 mg PO DAILY DHIRAJ Last Admin: 04/25/17 08:36 Dose: 1 mg Hydromorphone HCl (Dilaudid) 0.25 mg IVPUSH Q2H PRN PRN Reason: Pain (severe 7-10) Promethazine HCl 12.5 mg/ (Sodium Chloride) 50.5 mls @ 100 mls/hr IV Q6H PRN PRN Reason: Nausea/Vomiting Magnesium Sulfate 2 gm/ Premix 50 mls @ 25 mls/hr IV Q2H [facility] Stop: 04/25/17 13:44 Last Admin: 04/25/17 10:01 Dose: 25 mls/hr Insulin Aspart (Novolog) 0 unit SUBCUT [facility] PRN Reason: Protocol Last Admin: 04/25/17 09:57 Dose: 3 units Lactulose (Cephulac) 40 gm PO TID [facility] Last Admin: 04/25/17 08:34 Dose: 40 gm Lorazepam (Ativan) 1 mg IV Q6H PRN PRN Reason: Anxiety Lorazepam (Ativan) 2 mg IVPUSH Q4H PRN PRN Reason: Seizures Magnesium Oxide (Magnesium Oxide) 400 mg PO BID [facility] Last Admin: 04/25/17 08:35 Dose: 400 mg Magnesium Sulfate (Pharmacy To Dose - Magnesium Replacement) 0 dose .XX ASDIRECTED PRN PRN Reason: RX TO WATCH MAG LEVELS Metoprolol Tartrate (Lopressor) 5 mg IVPUSH Q4H PRN PRN Reason: Tachycardia Multivitamins (Thera) 1 each PO BEDTIME [facility] Last Admin: 04/24/17 21:52 Dose: 1 each Ondansetron HCl (Zofran) 4 mg IV Q6H PRN PRN Reason: Nausea/Vomiting Pantoprazole Sodium (Protonix) 40 mg PO Q12HR [facility] Last Admin: 04/25/17 08:36 Dose: 40 mg Rifaximin (Xifaxan) 550 mg PO BID [facility] Last Admin: 04/25/17 08:34 Dose: 550 mg Spironolactone (Aldactone) 50 mg PO BID [facility] Last Admin: 04/25/17 08:35 Dose: 50 mg Thiamine HCl (Vitamin B-1) 100 mg PO BEDTIME [facility] Last Admin: 04/24/17 21:52 Dose: 100 mg Discontinued Medications Magnesium Sulfate 2 gm/ Premix 50 mls @ 25 mls/hr IV ONETIME ONE Stop: 04/24/17 14:44 Last Admin: 04/24/17 13:23 Dose: 25 mls/hr Lactulose (Cephulac) 40 gm PO ONETIME ONE Stop: 04/23/17 21:39 Last Admin: 04/23/17 21:57 Dose: 40 gm Pantoprazole Sodium (Protonix Iv) 40 mg IV Q12HR [facility]IRAJ Last Admin: 04/24/17 08:08 Dose: 40 mg - Exam Quality Assessment: Reports: DVT Prophylaxis General: Reports: Alert, Oriented, Cooperative HEENT: Reports: Pupils Equal, Mucous Membr. Moist/[place], Scleral Icterus (mild) Neck: Reports: Supple, Trachea Midline, No JVD Lungs: Reports: Clear to Auscultation, Normal Respiratory Effort Cardiovascular: Reports: Regular Rate, Regular Rhythm, No Murmurs GI/Abdominal Exam: Normal Bowel Sounds, Soft, Non-Tender, No Organomegaly, No Distention, No Abnormal Bruit, No Mass, Pelvis Stable, Other (Ascites noted. Patient has large scar from xiphoid process to waistline from previous surgery. Scar is well-healed.) (Male) Exam: Deferred Rectal (Males) Exam: Deferred Back Exam: Reports: Normal Inspection Extremities: Normal Inspection, Normal Range of Motion, Non-Tender, Normal Capillary Refill, Pedal Edema (2-3+ however patient reports this is baseline for him.) Skin: Reports: Warm, Dry, Intact Neurological: Reports: No New Focal Deficit, Normal Gait, Normal Speech, Normal Tone, Other (A&O3. Answers multiple questions appropriately.) Psy/Mental Status: Reports: Alert, Normal Affect, Normal Mood *Q Meaningful Use (DIS) - VTE *Q VTE Criteria *Q: - Stroke *Q Stroke Criteria *Q: - AMI *Q AMI Criteria *Q:
[2017-04-25 15:21] VITALS: BP 124/64
== END 2017-04-25 17:09 | disposition home or self-care (01) | DRG 279 ==
LOC: JD.ED 19:32 → JD.MS 21:48
PROVIDERS: ADMIT Internal Medicine; ATTEND Internal Medicine
DX: K72.00 Acute and subacute hepatic failure without coma (principal); K72.10 Chronic hepatic failure without coma; E83.42 Hypomagnesemia; E72.20 Disorder of urea cycle metabolism, unspecified; Z91.19 Patient's noncompliance with other medical treatment and regimen; F10.21 Alcohol dependence, in remission; D61.818 Other pancytopenia; E88.09 Other disorders of plasma-protein metabolism, not elsewhere classified; E11.9 Type 2 diabetes mellitus without complications; Z79.84 Long term (current) use of oral hypoglycemic drugs; E80.6 Other disorders of bilirubin metabolism; E66.9 Obesity, unspecified; Z68.39 Body mass index [BMI] 39.0-39.9, adult; K21.9 Gastro-esophageal reflux disease without esophagitis; E46 Unspecified protein-calorie malnutrition; D64.9 Anemia, unspecified; Z86.14 Personal history of Methicillin resistant Staphylococcus aureus infection; F17.210 Nicotine dependence, cigarettes, uncomplicated; Z79.899 Other long term (current) drug therapy
CPT/HCPCS: 36415; 36600; 51701; 70450; 70450-26; 71010; 71010-26; 80053; 80306; 81001; 82140; 82803; 82962; 83735; 84484; 85025; 85610; 85730; 93005; 97161-GP; 97165-GO; 97530-GO; 97530-GP; 99285; 99285-25; A9270-GY; C9113; G0480; J1815-GY; J3475

== ENCOUNTER 2017-05-11 01:13 | Inpatient (IN) | payer BC ==
--- NOTE | 2017-05-11 01:29 | EDM.PDOC ---
ED HPI GENERAL MEDICAL PROBLEM - General Chief Complaint: Neuro Symptoms/Deficits Stated Complaint: [facility] Time Seen by Provider: 05/11/17 01:20 Source of Information: Reports: EMS Notes Reviewed, Family History Limitations: Reports: Altered Mental Status (not able to answer any questions due to confusion. ) - History of Present Illness INITIAL COMMENTS - FREE TEXT/NARRATIVE: 56-year-old male of [place] ancestry presents to the ED per ambulance from [place]. Patient is known to suffer from cirrhosis of the liver for many years and presents due to altered mental status worsening over the last several days. Believe that he's not taking his medications appropriately due to his confused status. Patient has presented to the ED many times in the past with hepato-encephalopathy. At present the patient is very confused and keeps pulling at this time which appears to be grossly enlarged. He is not able to answer any questions appropriately. He is disoriented to person place and time.her medics have administered to partially 400 mils of normal saline en route to the hospital. IV will be turned down to 75 mils an hour. Onset: Gradual (over the last 2-3 days.) Onset Date: 05/09/17 Duration: Day(s): Location: Reports: Generalized (confusion inability to walk.) Severity: Moderate (to severe.) Improves with: Reports: None Worsens with: Reports: None Context: Reports: Other (chronic illness with hepatic failure.) Associated Symptoms: Reports: Confusion, Malaise, Shortness of Breath, Weakness , Other (not eating.). 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: Other (see below) (unknown) - Related Data Allergies Allergy/AdvReac Type Severity Reaction Status Date / Time No Known Allergies Allergy Verified 05/11/17 01:24 Home Meds: Home Meds Pantoprazole [ProTONIX] 40 mg PO ACBREAKFAST #30 tab.cr 12/08/15 [Rx] Spironolactone 50 mg PO BID 03/03/16 [History] Rifaximin [Xifaxan] 550 mg PO BID 06/13/16 [History] metFORMIN [Glucophage] 850 mg PO BID 06/13/16 [History] Magnesium Oxide 400 mg PO BID #30 tablet 04/25/17 [Rx] Past Medical History Cardiovascular History: Reports: Hypertension Respiratory History: Reports: SOB Gastrointestinal History: Reports: Cirrhosis, GERD, GI Bleed Other Gastrointestinal History: liver failure;stomach bleed Neurological History: Reports: Other (See Below) Other Neuro History: hepatic encephalopathy Psychiatric History: Reports: Addiction Other Psychiatric History: recovered alcoholic Endocrine/Metabolic History: Reports: Diabetes, Type II, Obesity/BMI 30+ Hematologic History: Reports: Anemia, Blood Transfusion(s) Dermatologic History: Reports: Cellulitis, Other (See Below) Other Dermatologic History: 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 History of cellulitis to both legs. - Infectious Disease History Infectious Disease History: Reports: Hepatitis non A,B,C, Measles, MRSA - Past Surgical History GI Surgical History: Reports: Other (See Below) Musculoskeletal Surgical History: Reports: Other (See Below) Social & Family History - Family History Family Medical History: Noncontributory - Tobacco Use Smoking Status *Q: Unknown Ever Smoked Years of Tobacco use: 25 Packs/Tins Daily: 0.5 Used Tobacco, but Quit: Yes Month Tobacco Last Used: 20 years ago Second Hand Smoke Exposure: No - Caffeine Use Caffeine Use: Reports: Coffee, Soda, Tea Other Caffeine Use: quite a bit of diet soda - Alcohol Use Days Per Week of Alcohol Use: 0 - Recreational Drug Use Recreational Drug Use: No - Living Situation & Occupation Living situation: Reports: , with Family Occupation: Employed ED ROS GENERAL - Review of Systems Review Of Systems: Unable To Obtain ED EXAM, NEURO - Physical Exam Exam: See Below Exam Limited By: Altered Mental Status (very confused and disoriented to person place and time) General Appearance: Anxious, Other (keeps picking at his tongue as if there is a her on his tongue.) Eye Exam: Bilateral Eye: Conjunctival Injection (mild scleral icterus bilaterally) Throat/Mouth: Other (tongue is enlarged thick and pink.) Head Exam: Atraumatic, Normocephalic Neck: Normal Inspection, Supple, Non-Tender, Full Range of Motion Respiratory/Chest: No Respiratory Distress, Lungs Clear, Decreased Breath Sounds. No: Rales, Rhonchi (decreased breath sounds however to both lung bases. ), Wheezing Cardiovascular: Normal Peripheral Pulses, Regular Rate, Rhythm, No Gallop, No Murmur. No: No Edema GI/Abdominal: Abnormal Bowel Sounds (hypoactive bowel sounds), Other (grossly distended and firm to palpation. Compatible with significant ascites. This actually worse than I've ever seen him.) Neurological: Other (asterixis.). No: Normal Plantar Flexion, Normal Gait, Normal Reflexes, No Motor/Sensory Deficits, Oriented x 3 Back Exam: Normal Inspection Extremities: Pedal Edema (4+ pitting edema up to the knees bilaterally.) Psychiatric: Other Skin Exam: Warm (very confused. Cannot answer questions appropriately), Dry, Intact, Normal Color, No Rash EKG INTERPRETATION EKG Date: 05/11/17 Time: 02:10 Rhythm: NSR Rate (Beats/Min): 88 [place]: LAD-Left [place] Deviation (-31) P-Wave: Present QRS: Other (decreased voltage in the precordial leads. There is poor R-wave progression with late transition.) ST-T: Other (near Q-wave in leads 3 and aVF giving some consideration to possible old inferior wall myocardial infarction) QT: Prolonged (prolonged for rate) EKG Interpretation Comments: abnormal ECG Course - Vital Signs Last Recorded V/S: Last Vital Signs Temp 36.2 C 05/11/17 01:20 Pulse 85 05/11/17 01:20 Resp 18 05/11/17 01:20 BP 99/53 L 05/11/17 01:29 Pulse Ox 100 05/11/17 01:20 - Orders/Labs/Meds Orders: Active Orders 24 hr Category Date Time Status Blood Glucose Check, Bedside [RC] ONETIME Care 05/11/17 01:26 Active EKG Documentation Completion [RC] STAT Care 05/11/17 01:25 Active Chest 1V Frontal [CR] Stat Exams 05/11/17 01:50 Taken Sodium Chloride 0.9% [Normal Saline] 1,000 ml Med 05/11/17 01:30 Active IV ASDIRECTED Medication Orders Sodium Chloride (Normal Saline) 1,000 mls @ 75 mls/hr IV ASDIRECTED DHIRAJ Last Admin: 05/11/17 01:36 Dose: 75 mls/hr Labs: Laboratory Tests 05/11/17 05/11/17 05/11/17 Range/Units 01:30 01:37 01:38 WBC 2.34 L* (4.23-9.07) K/mm3 RBC 2.84 L (4.63-6.08) M/mm3 Hgb 9.1 L (13.7-17.5) gm/L Hct 26.6 L (40.1-51.0) % MCV 93.7 H (79.0-92.2) fl MCH 32.0 (25.7-32.2) pg MCHC 34.2 (32.2-35.5) g/dl RDW Std Deviation 52.5 H (35.1-43.9) fL Plt Count 38 L (163-337) K/mm3 MPV 9.7 (9.4-12.3) fl Neutrophils % (Manual) 66 H (40-60) % Band Neutrophils % 0 (0-10) % Lymphocytes % (Manual) 30 (20-40) % Atypical Lymphs % 0 % Monocytes % (Manual) 3 (2-10) % Eosinophils % (Manual) 1 (0.8-7.0) % Basophils % (Manual) 0 L (0.2-1.2) Platelet Estimate Marked dec Plt Morphology Comment Normal Polychromasia 1+ slight Hypochromasia 1+ slight Poikilocytosis 2+ moderate Anisocytosis 2+ moderate Microcytosis 1+ slight Macrocytosis 1+ slight Tear Drop Cells 1+ slight Ovalocytes 1+ slight RBC Morph Comment Abnormal PT (8.0-13.0) SECONDS INR APTT (22-36) SECONDS Sodium (136-145) mEq/L Potassium (3.5-5.1) mEq/L Chloride (98-107) mEq/L Carbon Dioxide (21-32) mEq/L Anion Gap (5-15) BUN (7-18) mg/dL Creatinine (0.7-1.3) mg/dL Est Cr Clr Drug Dosing mL/min Estimated GFR (MDRD) (>60) mL/min BUN/Creatinine Ratio (14-18) Glucose (74-106) mg/dL POC Glucose 225 H (70-105) mg/dL Calcium (8.5-10.1) mg/dL Total Bilirubin (0.2-1.0) mg/dL AST (15-37) U/L ALT (16-63) U/L Alkaline Phosphatase (46-116) U/L Ammonia (11-32) umol/L C-Reactive Protein (<1.0) mg/dL NT-Pro-B Natriuret Pep (0-125) pg/mL Total Protein (6.4-8.2) g/dl Albumin (3.4-5.0) g/dl Globulin gm/dL Albumin/Globulin Ratio (1-2) TSH 3rd Generation (0.358-3.74) uIU/mL Urine Color Yellow (Yellow) Urine Appearance Clear (Clear) Urine pH 7.0 (5.0-8.0) Ur Specific [place] 1.020 (1.005-1.030) Urine Protein Negative (Negative) Urine Glucose (UA) Trace H (Negative) Urine Ketones Negative (Negative) Urine Occult Blood Trace-lysed H (Negative) Urine Nitrite Negative (Negative) Urine Bilirubin Negative (Negative) Urine Urobilinogen 4.0 H (0.2-1.0) Ur Leukocyte Esterase Trace H (Negative) Urine RBC 0-5 (0-5) /hpf Urine WBC 0-5 (0-5) /hpf Ur Epithelial Cells 0-5 (0-5) /hpf Urine Bacteria Few (FEW) /hpf Urine Mucus Few (FEW) /hpf 05/11/17 05/11/17 05/11/17 Range/Units 01:38 01:38 01:38 WBC (4.23-9.07) K/mm3 RBC (4.63-6.08) M/mm3 Hgb (13.7-17.5) gm/L Hct (40.1-51.0) % MCV (79.0-92.2) fl MCH (25.7-32.2) pg MCHC (32.2-35.5) g/dl RDW Std Deviation (35.1-43.9) fL Plt Count (163-337) K/mm3 MPV (9.4-12.3) fl Neutrophils % (Manual) (40-60) % Band Neutrophils % (0-10) % Lymphocytes % (Manual) (20-40) % Atypical Lymphs % % Monocytes % (Manual) (2-10) % Eosinophils % (Manual) (0.8-7.0) % Basophils % (Manual) (0.2-1.2) Platelet Estimate Plt Morphology Comment Polychromasia Hypochromasia Poikilocytosis Anisocytosis Microcytosis Macrocytosis Tear Drop Cells Ovalocytes RBC Morph Comment PT 15.0 H (8.0-13.0) SECONDS INR 1.35 APTT 42 H (22-36) SECONDS Sodium 140 (136-145) mEq/L Potassium 4.1 (3.5-5.1) mEq/L Chloride 109 H (98-107) mEq/L Carbon Dioxide 23 (21-32) mEq/L Anion Gap 12.1 (5-15) BUN 8 (7-18) mg/dL Creatinine 0.9 (0.7-1.3) mg/dL Est Cr Clr Drug Dosing 99.40 mL/min Estimated GFR (MDRD) > 60 (>60) mL/min BUN/Creatinine Ratio 8.9 L (14-18) Glucose 235 H (74-106) mg/dL POC Glucose (70-105) mg/dL Calcium 8.2 L (8.5-10.1) mg/dL Total Bilirubin 1.9 H (0.2-1.0) mg/dL AST 31 (15-37) U/L ALT 24 (16-63) U/L Alkaline Phosphatase 93 (46-116) U/L Ammonia 182 H (11-32) umol/L C-Reactive Protein 0.6 (<1.0) mg/dL NT-Pro-B Natriuret Pep 252 H (0-125) pg/mL Total Protein 7.0 (6.4-8.2) g/dl Albumin 1.9 L (3.4-5.0) g/dl Globulin 5.1 gm/dL Albumin/Globulin Ratio 0.4 L (1-2) TSH 3rd Generation (0.358-3.74) uIU/mL Urine Color (Yellow) Urine Appearance (Clear) Urine pH (5.0-8.0) Ur Specific [place] (1.005-1.030) Urine Protein (Negative) Urine Glucose (UA) (Negative) Urine Ketones (Negative) Urine Occult Blood (Negative) Urine Nitrite (Negative) Urine Bilirubin (Negative) Urine Urobilinogen (0.2-1.0) Ur Leukocyte Esterase (Negative) Urine RBC (0-5) /hpf Urine WBC (0-5) /hpf Ur Epithelial Cells (0-5) /hpf Urine Bacteria (FEW) /hpf Urine Mucus (FEW) /hpf 05/11/17 Range/Units 01:38 WBC (4.23-9.07) K/mm3 RBC (4.63-6.08) M/mm3 Hgb (13.7-17.5) gm/L Hct (40.1-51.0) % MCV (79.0-92.2) fl MCH (25.7-32.2) pg MCHC (32.2-35.5) g/dl RDW Std Deviation (35.1-43.9) fL Plt Count (163-337) K/mm3 MPV (9.4-12.3) fl Neutrophils % (Manual) (40-60) % Band Neutrophils % (0-10) % Lymphocytes % (Manual) (20-40) % Atypical Lymphs % % Monocytes % (Manual) (2-10) % Eosinophils % (Manual) (0.8-7.0) % Basophils % (Manual) (0.2-1.2) Platelet Estimate Plt Morphology Comment Polychromasia Hypochromasia Poikilocytosis Anisocytosis Microcytosis Macrocytosis Tear Drop Cells Ovalocytes RBC Morph Comment PT (8.0-13.0) SECONDS INR APTT (22-36) SECONDS Sodium (136-145) mEq/L Potassium (3.5-5.1) mEq/L Chloride (98-107) mEq/L Carbon Dioxide (21-32) mEq/L Anion Gap (5-15) BUN (7-18) mg/dL Creatinine (0.7-1.3) mg/dL Est Cr Clr Drug Dosing mL/min Estimated GFR (MDRD) (>60) mL/min BUN/Creatinine Ratio (14-18) Glucose (74-106) mg/dL POC Glucose (70-105) mg/dL Calcium (8.5-10.1) mg/dL Total Bilirubin (0.2-1.0) mg/dL AST (15-37) U/L ALT (16-63) U/L Alkaline Phosphatase (46-116) U/L Ammonia (11-32) umol/L C-Reactive Protein (<1.0) mg/dL NT-Pro-B Natriuret Pep (0-125) pg/mL Total Protein (6.4-8.2) g/dl Albumin (3.4-5.0) g/dl Globulin gm/dL Albumin/Globulin Ratio (1-2) TSH 3rd Generation 5.595 H (0.358-3.74) uIU/mL Urine Color (Yellow) Urine Appearance (Clear) Urine pH (5.0-8.0) Ur Specific [place] (1.005-1.030) Urine Protein (Negative) Urine Glucose (UA) (Negative) Urine Ketones (Negative) Urine Occult Blood (Negative) Urine Nitrite (Negative) Urine Bilirubin (Negative) Urine Urobilinogen (0.2-1.0) Ur Leukocyte Esterase (Negative) Urine RBC (0-5) /hpf Urine WBC (0-5) /hpf Ur Epithelial Cells (0-5) /hpf Urine Bacteria (FEW) /hpf Urine Mucus (FEW) /hpf Meds: Medications Generic Name Dose Route Start Last Admin Trade Name Freq PRN Reason Stop Dose Admin Sodium Chloride 1,000 mls @ 75 mls/hr 05/11/17 01:30 05/11/17 01:36 Normal Saline IV 75 mls/hr ASDIRECTED DHIRAJ Administration Discontinued Medications Generic Name Dose Route Start Last Admin Trade Name Freq PRN Reason Stop Dose Admin Lactulose 20 gm 05/11/17 01:34 05/11/17 01:57 Cephulac PO 05/11/17 01:35 20 gm ONETIME ONE Administration - Radiology Interpretation Free Text/Narrative:: 56-year-old male of [place] presents to the ED with altered mental status. 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 Patient has chronic ascites. As for whether he's been taking all of his medications as prescribed as of recent. He has presented many times in the past with hepatic encephalopathy. This appears to be the case today as well. He is afebrile but very confused. She abdomen is more distended than I've ever seen it. The ascites and dependent edema or worse in the past. He has hyper glycemia which are not noticed before. Therefore thyroid function will be checked. Labs to be done to include a serum ammonia level. Will hold off on diuretics until I see his lab work. Will give lactulose 20 g by mouth now. - Re-Assessments/Exams Free Text/Narrative Re-Assessment/Exam: 05/11/17 02:11chest x-ray done portably reveals moderate cardiomegaly although he did not take in a deep breath his diaphragms are being pushed up from his ascites. There is diffuse vascular congestion appreciated. ECG shows sinus rhythm at 88/m. Occasional PVCs appreciated. There is a left axis deviation of - 31. QT interval is prolonged at 448 for his right. There are near Q waves in leads 3 and aVF giving some consideration to possible old inferior wall myocardial infarction. There is poor R-wave progression with delayed transition. 05/11/17 02:30 lab called over with a critical value. White cell count is 2.34 with 66% neutrophils no bands. Hemoglobin is low at 9.1 with hematocrit of 26.6 platelets are low at 38,000. PT was 15.0 INR is 1.35 PTT is elevated at 42 and patient is not on any anticoagulants. Glucose is elevated at 225. Urinalysis shows trace of lysed RBCs and trace leukocyte Esterase. Chemistry is pending 05/11/17 02:55 Chemistries reveals a sodium of 140 potassium 4.1. Chloride 109 bicarbonate is 23. Glucose is elevated at 235 serum calcium is low at 8.2. Mauro is 1.9. Albumin fraction is very low at 1.9. BNP is elevated at 252 CRP is normal at 0.6; ammonia level is markedly elevated at 182. TSH is also elevated at 5.59 indicating that he is hypothyroid.patient will be admitted to the hospital. I will discuss case with Dr. Candelario and determine where he would like the patient to be admitted to. 05/11/17 03:[address] Candelario and he has agreed to admission to the hospital patient be placed on med surgery on telemetry. Departure - Departure Time of Disposition: 03:20 Disposition: Admitted As Inpatient 65 Condition: Serious Clinical Impression: CHF, Congestive heart failure, Diabetes mellitus type 2, Hepatic encephalopathy , Obesity, Pancytopenia, Elevated blood sugar Cirrhosis of liver with ascites Qualifiers: Hepatic cirrhosis type: unspecified hepatic cirrhosis Qualified Code(s): K74.60 - Unspecified cirrhosis of liver - Discharge Information - My Orders Last 24 Hours: My Active Orders 05/11/17 01:25 EKG Documentation Completion [RC] STAT 05/11/17 01:26 Blood Glucose Check, Bedside [RC] ONETIME 05/11/17 01:30 Sodium Chloride 0.9% [Normal Saline] 1,000 ml IV ASDIRECTED 05/11/17 01:50 Chest 1V Frontal [CR] Stat - Assessment/Plan Last 24 Hours: My Active Orders 05/11/17 01:25 EKG Documentation Completion [RC] STAT 05/11/17 01:26 Blood Glucose Check, Bedside [RC] ONETIME 05/11/17 01:30 Sodium Chloride 0.9% [Normal Saline] 1,000 ml IV ASDIRECTED 05/11/17 01:50 Chest 1V Frontal [CR] Stat
[2017-05-11] MEDS ORDERED: Sodium Chloride 0.9% 1,000 ML IV SCH (01:30)
[2017-05-11] MEDS ORDERED: Lactulose Soln 10 GM/15 ML 30 ML UD Cup PO ONE (01:34)
[2017-05-11] MEDS ORDERED: Furosemide 40 MG/4 ML VIAL IVPUSH ONE (03:24)
[2017-05-11] MEDS ORDERED: Sodium Chloride 0.9% 10 ML Syringe FLUSH PRN (04:35)
[2017-05-11] MEDS ORDERED: Lactulose Soln 10 GM/15 ML 30 ML UD Cup PO SCH (06:00)
[2017-05-11] MEDS: Furosemide 40 MG/4 ML VIAL IVPUSH SCH ×2 (06:10→13:24)
[2017-05-11] MEDS: Levothyroxine 100 MCG Tab PO SCH (07:07)
--- NOTE | 2017-05-11 07:51 | PCM.HP ---
H&P History of Present Illness - General Date of Service: 05/11/17 Admit Problem/Dx: Admission Diagnosis/Problem Admission Diagnosis/Problem Hepatic encephalopathy Source of Information: Patient, Old Records, Provider, RN Notes Reviewed History Limitations: Reports: Altered Mental Status - History of Present Illness Initial Comments - Free Text/Narative: This ia 56 yo male with significant hepatic disease who comes in via ambulance due to worsening mental status. Patient is well known to the hospitalist team due to multiple admissions related to hepatic encephalopathy. His initial workup in the emergency department shows a CBC remarkable for WBC of 2.34, RBC of 2.84, hemoglobin of 9.1, hematocrit of 26.6, MCV of 93.7, platelet of 38, and neutrophils of 66%. PT is 15, INR is 1.25, APTT is 42. His chemistry is remarkable for chloride of 109, glucose of 235, A1c of 6.9, calcium of 8.2, total bilirubin of 1.9, ammonia of 182, proBNP of 252, albumin 1.9 and TSH of 5.59. His UA is not suggestive of UTI. Chest x-ray shows increased central lung markings but no appreciable acute abnormalities. 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 He is here for acute on chronic hepatic encephalopathy. He is full code. all over Pain Score (Numeric/FACES): 0 - Related Data Allergies/Adverse Reactions: Allergies Allergy/AdvReac Type Severity Reaction Status Date / Time No Known Allergies Allergy Verified 05/11/17 01:24 Home Medications: Home Meds Pantoprazole [ProTONIX] 40 mg PO ACBREAKFAST #30 tab.cr 12/08/15 [Rx] Spironolactone 50 mg PO BID 03/03/16 [History] Rifaximin [Xifaxan] 550 mg PO BID 06/13/16 [History] metFORMIN [Glucophage] 850 mg PO BID 06/13/16 [History] Magnesium Oxide 400 mg PO BID #30 tablet 04/25/17 [Rx] Past Medical History Cardiovascular History: Reports: Hypertension Respiratory History: Reports: SOB Gastrointestinal History: Reports: Cirrhosis, GERD, GI Bleed Other Gastrointestinal History: liver failure;stomach bleed Neurological History: Reports: Other (See Below) Other Neuro History: hepatic encephalopathy Psychiatric History: Reports: Addiction Other Psychiatric History: recovered alcoholic Endocrine/Metabolic History: Reports: Diabetes, Type II, Obesity/BMI 30+ Hematologic History: Reports: Anemia, Blood Transfusion(s) Dermatologic History: Reports: Cellulitis, Other (See Below) Other Dermatologic History: 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 History of cellulitis to both legs. - Infectious Disease History Infectious Disease History: Reports: Hepatitis non A,B,C, Measles, MRSA - Past Surgical History GI Surgical History: Reports: Other (See Below) Musculoskeletal Surgical History: Reports: Other (See Below) Social & Family History - Family History Family Medical History: Noncontributory - Tobacco Use Smoking Status *Q: Unknown Ever Smoked Years of Tobacco use: 25 Packs/Tins Daily: 0.5 Used Tobacco, but Quit: Yes Month Tobacco Last Used: 20 years ago Second Hand Smoke Exposure: No - Caffeine Use Caffeine Use: Reports: Coffee, Soda, Tea Other Caffeine Use: quite a bit of diet soda - Alcohol Use Days Per Week of Alcohol Use: 0 - Recreational Drug Use Recreational Drug Use: No - Living Situation & Occupation Living situation: Reports: , with Family Occupation: Employed H&P Review of Systems - Review of Systems: Review Of Systems: See Below General: Reports: Weakness. Denies: Fever, Chills, Malaise, Fatigue HEENT: Reports: No Symptoms Pulmonary: Denies: Shortness of Breath Cardiovascular: Denies: Chest Pain, Palpitations, Dyspnea on Exertion Gastrointestinal: Reports: Diarrhea. Denies: Abdominal Pain, Nausea, Vomiting Genitourinary: Reports: No Symptoms Musculoskeletal: Reports: No Symptoms Skin: Denies: Cyanosis, Jaundice, Mottled, Pallor, Diaphoresis, Rash Psychiatric: Denies: Depression, Anxiety, Agitation, Hallucinations Neurological: Reports: Confusion, Weakness. Denies: Pre-Existing Deficit, Difficulty Walking, Gait Disturbance Hematologic/Lymphatic: Reports: No Symptoms Immunologic: Reports: No Symptoms Exam - Exam Exam: See Below - Vital Signs Vital Signs: Last Vital Signs Temp 36.9 C 05/11/17 03:19 Pulse 76 05/11/17 03:19 Resp 16 05/11/17 03:19 BP 102/72 05/11/17 03:19 Pulse Ox 99 05/11/17 03:19 Weight: 123.196 kg - Exam General: Cooperative, Other (awake and comfortable). No: Alert, Oriented HEENT: Conjunctiva Clear, EOMI, Hearing Intact, Mucosa Moist & [place], Nares Patent, Normal Nasal Septum, Pupils Equal, Pupils Reactive Neck: Supple, Trachea Midline, Full Range of Motion. No: JVD Lungs: Clear to Auscultation, Normal Respiratory Effort Cardiovascular: Regular Rate, Regular Rhythm GI/Abdominal Exam: Normal Bowel Sounds, Soft, Non-Tender, No Organomegaly, No Distention, No Abnormal Bruit (Male) Exam: Deferred Rectal (Males) Exam: Deferred Back Exam: Normal Inspection Extremities: Normal Inspection, Normal Range of Motion, Non-Tender, Pedal Edema , Other (bilateral lower extremity edema trace-1+; Aterixis on both hands) Peripheral Pulses: 2+: Posterior Tibial (L), Posterior Tibial (R), Dorsalis Pedis (L), Dorsalis Pedis (R) Skin: Warm, Dry, Intact Neuro Extensive - Mental Status: Normal Mood/Affect, Normal Cognition, Nl Response to Commands. No: Oriented x3, Memory Intact Neuro Extensive - Motor, Sensory, Reflexes: CN II-XII Intact (limited but grossly intact), Normal Gait Psychiatric: Normal Affect, Normal Mood. No: Anxious, Suicidal Ideation, Hallucinations - Patient Data Lab Results Last 24 hrs: Laboratory Results - last 24 hr 05/11/17 Range/Units 07:05 POC Glucose 222 H (70-105) mg/dL Result Diagrams: 05/12/17 06:10 05/12/17 06:10 *Q Meaningful Use (ADM) - VTE *Q VTE Criteria *Q: - Stroke *Q Stroke Criteria *Q: - AMI *Q AMI Criteria *Q: Problem List Initiated/Reviewed/Updated: Yes Orders Last 24hrs: Active Orders 24 hr Category Date Time Status Admission Status [Patient Status] [ADT] Routine ADT 05/11/17 03:32 Active Activity as Tolerated [RC] .Routine Care 05/11/17 05:21 Active Blood Glucose Check, Bedside [RC] QIDACANDBED Care 05/11/17 07:00 Active Protein Restricted Diet [DIET] Diet 05/11/17 Breakfast Active Furosemide [Lasix] Med 05/11/17 06:00 Active 40 mg IVPUSH BIDDIURETIC Lactulose [Cephulac] Med 05/11/17 06:00 Active 20 gm PO TID Levothyroxine [Synthroid] Med 05/11/17 07:00 Active 100 mcg PO DAILY@0700 Pantoprazole [ProTONIX] Med 05/11/17 09:00 Active 40 mg PO DAILY Rifaximin [Xifaxan] Med 05/11/17 09:00 Active 550 mg PO BID Sodium Chloride 0.9% [Saline Flush] Med 05/11/17 04:35 Active 10 ml FLUSH ASDIRECTED PRN metFORMIN [Glucophage] Med 05/11/17 06:00 Active 850 mg PO BIDMEALS Convert IV to Saline Lock [OM.PC] Routine Oth 05/11/17 04:35 Ordered Code Status [Resuscitation Status] Routine Resus Stat 05/11/17 04:15 Ordered Medication Orders Furosemide (Lasix) 40 mg IVPUSH BIDDIURETIC DHIRAJ Last Admin: 05/11/17 06:10 Dose: Lactulose (Cephulac) 20 gm PO TID DHIRAJ Last Admin: 05/11/17 07:07 Dose: 20 gm Levothyroxine Sodium (Synthroid) 100 mcg PO DAILY@0700 [facility] Last Admin: 05/11/17 07:07 Dose: 100 mcg Metformin HCl (Glucophage) 850 mg PO BIDMEALS [facility] Last Admin: 05/11/17 07:07 Dose: 850 mg Admin: 05/11/17 06:10 Dose: Pantoprazole Sodium (Protonix) 40 mg PO DAILY DHIRAJ Rifaximin (Xifaxan) 550 mg PO BID DHIRAJ Sodium Chloride (Saline Flush) 10 ml FLUSH ASDIRECTED PRN PRN Reason: Keep Vein Open Assessment/Plan Comment:: Assessment/Plan: Acute: Hepatic Encephalopathy - Acute on Chronic - 2/2 Advanced Liver Disease and Medical Non-Compliance - CXR: No acute abnormal findings - Ammonia level on admission-182 - UA negative for UTI - Resume Home Meds: Lactulose and Xifaxan - No need for serial ammonia level - Avoid NSAIDs if all possible - MVI, Folic Acid and Thiamine Supplement DM2 with Hyperglycemia - BS in the 200s - He is on Metformin 850 mg po BID - A1C is 6.90 - Accu-check AM/HS and ISS Chronic: Advanced Liver Disease from Hx/o Alcohol Abuse Hx/o Esophageal Varices S/p TIPS Obesity with BMI of 36.8 Pantocypenia - Leukocytopenia - WBC 2.34 - Has adequate neutrophils - He has no signs of systemic infection - Unclear where the source is; possibly from Advanced Liver Disease - Anemia - Hgb 9.1; No active GI Bleed or complaints of Melenic Stool but has Hx/o Esophageal Varices - Iron Panel: Suggestive of AVEL 2/2 Chronic Disease (likely Advanced Liver Disease) - Vit B12 and Folate levels: are adequate - Consider Iron supplement - Thrombocytopenia - Platelet level 38 - This is Likely 2/2 Splenic Sequestration - No anti-coags; will monitor Hyperbilirubinemia - Total Bili 1.9; Urine Urobilinogen 4 (elevated) - 2/2 Advanced Liver Disease - Monitor Malnutrition - Albumin level is 1.9 - 2/2 Advanced Liver Disease - Dietary consult for protein intake Medical Non-Compliance 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
[2017-05-11] MEDS ORDERED: LORazepam 2 MG/ML MDV IVPUSH PRN (07:59)
[2017-05-11] MEDS ORDERED: Metoprolol Tartrate 5 MG/5 ML SDV IVPUSH PRN (07:59)
[2017-05-11] MEDS ORDERED: hydrALAZINE 20 MG/ML SDV IVPUSH PRN (07:59)
[2017-05-11] MEDS ORDERED: Ibuprofen 600 MG Tab PO PRN (08:01)
[2017-05-11] MEDS ORDERED: Albuterol 0.083% 2.5 MG/3 ML Neb Soln NEB PRN (08:01)
[2017-05-11] MEDS ORDERED: HYDROmorphone 1 MG/ML Syringe IVPUSH PRN (08:01)
[2017-05-11] MEDS ORDERED: Promethazine 12.5 MG in Sodium Chloride 0.9% 50 ML IV PRN (08:01)
[2017-05-11] MEDS ORDERED: oxyCODONE 5 MG Tab PO PRN (08:01)
[2017-05-11] MEDS ORDERED: Ondansetron 4 MG/2 ML SDV IV PRN (08:01)
[2017-05-11] MEDS ORDERED: LORazepam 2 MG/ML MDV IV PRN (08:01)
[2017-05-11] MEDS ORDERED: 50% Dextrose in Water 50 ML Syringe IVPUSH PRN (08:09)
[2017-05-11] MEDS ORDERED: Insulin Aspart 100 Units/ML 3 ML Pen SUBCUT SCH (08:15)
[2017-05-11] MEDS: Spironolactone 25 MG Tab PO SCH ×2 (08:49→21:12)
[2017-05-11] MEDS: Magnesium Oxide 400 MG Tab PO SCH ×2 (08:50→21:11)
[2017-05-11] MEDS: Lactulose Soln 10 GM/15 ML 30 ML UD Cup PO SCH ×3 (08:50→21:13)
[2017-05-11] MEDS: Rifaximin 550 MG Tab PO SCH ×2 (08:50→21:11)
[2017-05-11] MEDS ORDERED: Enoxaparin 40 MG/0.4 ML Syringe SUBCUT SCH (09:00)
[2017-05-11] MEDS ORDERED: Rifaximin 550 MG Tab PO SCH (09:00)
[2017-05-11] MEDS ORDERED: Pantoprazole 40 MG Tab.CR PO SCH (09:00)
[2017-05-11] MEDS: Thiamine 100 MG Tab PO SCH ×2 (14:06→21:10)
[2017-05-11] MEDS: Sodium Chloride 0.9% 1,000 ML IV SCH ×2 (14:07→21:59)
[2017-05-11] MEDS: Insulin Aspart 100 Units/ML 3 ML Pen SUBCUT SCH (21:07)
[2017-05-11] MEDS: glipiZIDE 2.5 MG Tab.ER PO SCH (21:11)
[2017-05-11] MEDS: Multivitamin/Iron/Folic Acid Tab PO SCH (21:16)
[2017-05-12] MEDS: Furosemide 40 MG/4 ML VIAL IVPUSH SCH ×2 (06:09→14:37)
[2017-05-12] MEDS: Levothyroxine 100 MCG Tab PO SCH (06:12)
[2017-05-12] MEDS: Pantoprazole 40 MG Tab.CR PO SCH (06:13)
[2017-05-12] MEDS: Sodium Chloride 0.9% 1,000 ML IV SCH ×2 (06:19→16:49)
[2017-05-12] MEDS ORDERED: Magnesium Sulfate/Water 2 GM in Premix Bag 1 BAG IV ONE (07:00)
[2017-05-12] MEDS: Insulin Aspart 100 Units/ML 3 ML Pen SUBCUT SCH ×2 (08:07→20:17)
[2017-05-12] MEDS: Lactulose Soln 10 GM/15 ML 30 ML UD Cup PO SCH ×3 (08:08→20:13)
[2017-05-12] MEDS: Spironolactone 25 MG Tab PO SCH ×2 (08:08→20:15)
[2017-05-12] MEDS: glipiZIDE 2.5 MG Tab.ER PO SCH ×2 (08:09→20:16)
[2017-05-12] MEDS: Rifaximin 550 MG Tab PO SCH ×2 (08:09→20:16)
[2017-05-12] MEDS: Magnesium Oxide 400 MG Tab PO SCH ×2 (08:09→20:15)
--- NOTE | 2017-05-12 08:26 | PCM.PN ---
- General Info Date of Service: 05/12/17 Admission Dx/Problem (Free Text): Admission Diagnosis/Problem Admission Diagnosis/Problem Hepatic encephalopathy Subjective Update: Follow Up Functional Status: Reports: Pain Controlled, Tolerating Diet, Ambulating, Urinating - Review of Systems General: Denies: Fever, Weakness, Fatigue, Malaise, Chills HEENT: Reports: No Symptoms Pulmonary: Denies: Shortness of Breath, Cough Cardiovascular: Denies: Chest Pain, Palpitations, Dyspnea on Exertion, Edema Gastrointestinal: Reports: Diarrhea, Flatus. Denies: Abdominal Pain, Nausea, Vomiting Genitourinary: Reports: No Symptoms Musculoskeletal: Reports: No Symptoms Skin: Reports: No Symptoms. Denies: Cyanosis, Jaundice, Pallor, Diaphoresis, Rash Neurological: Denies: Confusion, Difficulty Walking, Weakness, Gait Disturbance Psychiatric: Denies: Depression, Anxiety, Agitation, Hallucinations Systems Review Comment:: No significant overnight or acute issues. He is with it this morning. He slept good last night. He states "I feel pretty good". He is hoping he could go home tomorrow. He has no new complaints. - Patient Data Vitals - Most Recent: Last Vital Signs Temp 37.1 C 05/12/17 04:19 Pulse 81 05/12/17 04:19 Resp 20 05/12/17 04:19 BP 108/55 L 05/12/17 04:19 Pulse Ox 96 05/12/17 04:19 Weight - Most Recent: 121.608 kg I&O - Last 24 Hours: Intake & Output 05/11/17 05/12/17 05/12/17 22:59 06:59 14:59 Intake Total 320 2268 Balance 320 2268 Lab Results Last 24 Hours: Laboratory Results - last 24 hr 05/11/17 05/11/17 05/11/17 Range/Units 08:25 08:25 12:12 WBC (4.23-9.07) K/mm3 RBC (4.63-6.08) M/mm3 Hgb (13.7-17.5) gm/L Hct (40.1-51.0) % MCV (79.0-92.2) fl MCH (25.7-32.2) pg MCHC (32.2-35.5) g/dl RDW Std Deviation (35.1-43.9) fL Plt Count (163-337) K/mm3 MPV (9.4-12.3) fl Neut % (Auto) (34.0-67.9) % Lymph % (Auto) (21.8-53.1) % [place] % (Auto) (5.3-12.2) % Eos % (Auto) (0.8-7.0) Baso % (Auto) (0.1-1.2) % Neut # (Auto) (1.78-5.38) K/mm3 Lymph # (Auto) (1.32-3.57) K/mm3 [place] # (Auto) (0.30-0.82) K/mm3 Eos # (Auto) (0.04-0.54) K/mm3 Baso # (Auto) (0.01-0.08) K/mm3 Manual Slide Review Sodium (136-145) mEq/L Potassium (3.5-5.1) mEq/L Chloride (98-107) mEq/L Carbon Dioxide (21-32) mEq/L Anion Gap (5-15) BUN (7-18) mg/dL Creatinine (0.7-1.3) mg/dL Est Cr Clr Drug Dosing mL/min Estimated GFR (MDRD) (>60) mL/min BUN/Creatinine Ratio (14-18) Glucose (74-106) mg/dL POC Glucose 262 H (70-105) mg/dL Calcium (8.5-10.1) mg/dL Magnesium (1.8-2.4) mg/dl Iron 59 L (65-175) ug/dL TIBC 234 (100-400) ug/dL % Saturation 25 (20-55) % Transferrin 187 L (202-364) mg/dL C-Reactive Protein (<1.0) mg/dL Vitamin B12 1223 H (193-986) pg/ml Folate 19.6 (8.6-58.9) ng/mL 05/11/17 05/12/17 05/12/17 Range/Units 21:06 06:10 06:10 WBC 2.13 L* (4.23-9.07) K/mm3 RBC 2.77 L (4.63-6.08) M/mm3 Hgb 8.8 L (13.7-17.5) gm/L Hct 26.1 L (40.1-51.0) % MCV 94.2 H (79.0-92.2) fl MCH 31.8 (25.7-32.2) pg MCHC 33.7 (32.2-35.5) g/dl RDW Std Deviation 52.9 H (35.1-43.9) fL Plt Count 35 L (163-337) K/mm3 MPV 10.1 (9.4-12.3) fl Neut % (Auto) 65.3 (34.0-67.9) % Lymph % (Auto) 23.9 (21.8-53.1) % [place] % (Auto) 8.9 (5.3-12.2) % Eos % (Auto) 1.4 (0.8-7.0) Baso % (Auto) 0.5 (0.1-1.2) % Neut # (Auto) 1.39 L (1.78-5.38) K/mm3 Lymph # (Auto) 0.51 L (1.32-3.57) K/mm3 [place] # (Auto) 0.19 L (0.30-0.82) K/mm3 Eos # (Auto) 0.03 L (0.04-0.54) K/mm3 Baso # (Auto) 0.01 (0.01-0.08) K/mm3 Manual Slide Review Abnormal smear Sodium 138 (136-145) mEq/L Potassium 3.6 (3.5-5.1) mEq/L Chloride 109 H (98-107) mEq/L Carbon Dioxide 21 (21-32) mEq/L Anion Gap 11.6 (5-15) BUN 9 (7-18) mg/dL Creatinine 0.8 (0.7-1.3) mg/dL Est Cr Clr Drug Dosing 111.82 mL/min Estimated GFR (MDRD) > 60 (>60) mL/min BUN/Creatinine Ratio 11.3 L (14-18) Glucose 183 H (74-106) mg/dL POC Glucose 196 H (70-105) mg/dL Calcium 8.2 L (8.5-10.1) mg/dL Magnesium 1.5 L (1.8-2.4) mg/dl Iron (65-175) ug/dL TIBC (100-400) ug/dL % Saturation (20-55) % Transferrin (202-364) mg/dL C-Reactive Protein 0.4 (<1.0) mg/dL Vitamin B12 (193-986) pg/ml Folate (8.6-58.9) ng/mL 05/12/17 Range/Units 06:12 WBC (4.23-9.07) K/mm3 RBC (4.63-6.08) M/mm3 Hgb (13.7-17.5) gm/L Hct (40.1-51.0) % MCV (79.0-92.2) fl MCH (25.7-32.2) pg MCHC (32.2-35.5) g/dl RDW Std Deviation (35.1-43.9) fL Plt Count (163-337) K/mm3 MPV (9.4-12.3) fl Neut % (Auto) (34.0-67.9) % Lymph % (Auto) (21.8-53.1) % [place] % (Auto) (5.3-12.2) % Eos % (Auto) (0.8-7.0) Baso % (Auto) (0.1-1.2) % Neut # (Auto) (1.78-5.38) K/mm3 Lymph # (Auto) (1.32-3.57) K/mm3 [place] # (Auto) (0.30-0.82) K/mm3 Eos # (Auto) (0.04-0.54) K/mm3 Baso # (Auto) (0.01-0.08) K/mm3 Manual Slide Review Sodium (136-145) mEq/L Potassium (3.5-5.1) mEq/L Chloride (98-107) mEq/L Carbon Dioxide (21-32) mEq/L Anion Gap (5-15) BUN (7-18) mg/dL Creatinine (0.7-1.3) mg/dL Est Cr Clr Drug Dosing mL/min Estimated GFR (MDRD) (>60) mL/min BUN/Creatinine Ratio (14-18) Glucose (74-106) mg/dL POC Glucose 192 H (70-105) mg/dL Calcium (8.5-10.1) mg/dL Magnesium (1.8-2.4) mg/dl Iron (65-175) ug/dL TIBC (100-400) ug/dL % Saturation (20-55) % Transferrin (202-364) mg/dL C-Reactive Protein (<1.0) mg/dL Vitamin B12 (193-986) pg/ml Folate (8.6-58.9) ng/mL Med Orders - Current: Current Medications Albuterol (Proventil Neb Soln) 2.5 mg NEB Q2H PRN PRN Reason: Shortness Of Breath/wheezing Dextrose/Water (Dextrose 50% In Water) 50 ml IVPUSH ASDIRECTED PRN PRN Reason: Hypoglycemia Furosemide (Lasix) 40 mg IVPUSH BIDDIURETIC [facility] Last Admin: 05/12/17 06:09 Dose: 40 mg Glipizide (Glucotrol Xl) 2.5 mg PO BID [facility] Last Admin: 05/12/17 08:09 Dose: 2.5 mg Hydralazine HCl (Apresoline) 20 mg IVPUSH Q4H PRN PRN Reason: Hypertension Hydromorphone HCl (Dilaudid) 0.5 mg IVPUSH Q2H PRN PRN Reason: Pain (severe 7-10) Promethazine HCl 12.5 mg/ (Sodium Chloride) 50.5 mls @ 100 mls/hr IV Q6H PRN PRN Reason: Nausea/Vomiting Sodium Chloride (Normal Saline) 1,000 mls @ 125 mls/hr IV ASDIRECTED [facility] Last Admin: 05/12/17 06:19 Dose: 125 mls/hr Iron Sucrose 200 mg/ Sodium (Chloride) 260 mls @ 83 mls/hr IV ONETIME ONE Stop: 05/12/17 12:07 Ibuprofen (Motrin) 600 mg PO Q6H PRN PRN Reason: Pain (moderate 4-6) Insulin Aspart (Novolog) 0 unit SUBCUT BID@0700,2100 [facility] PRN Reason: Protocol Last Admin: 05/12/17 08:07 Dose: 2 units Lactulose (Cephulac) 30 gm PO TID [facility] Last Admin: 05/12/17 08:08 Dose: 30 gm Levothyroxine Sodium (Synthroid) 100 mcg PO DAILY@0700 [facility] Last Admin: 05/12/17 06:12 Dose: 100 mcg Lorazepam (Ativan) 2 mg IVPUSH Q4H PRN PRN Reason: Seizures Lorazepam (Ativan) 1 mg IV Q6H PRN PRN Reason: Anxiety Magnesium Oxide (Magnesium Oxide) 400 mg PO BID [facility] Last Admin: 05/12/17 08:09 Dose: 400 mg Magnesium Sulfate (Pharmacy To Dose - Magnesium Replacement) 1 dose .XX ASDIRECTED [facility] Metformin HCl (Glucophage) 850 mg PO BIDMEALS [facility] Last Admin: 05/12/17 06:13 Dose: 850 mg Metoprolol Tartrate (Lopressor) 5 mg IVPUSH Q4H PRN PRN Reason: Tachycardia Multivitamins/Minerals (Cerovite Advanced Formula Tablet) 1 tab PO BEDTIME [facility] Last Admin: 05/11/17 21:16 Dose: Not Given Ondansetron HCl (Zofran) 4 mg IV Q6H PRN PRN Reason: Nausea/Vomiting Oxycodone HCl (Oxycodone) 5 mg PO Q4H PRN PRN Reason: Pain (moderate 4-6) Pantoprazole Sodium (Protonix) 40 mg PO ACBREAKFAST [facility] Last Admin: 05/12/17 06:13 Dose: 40 mg Potassium Chloride (Pharmacy To Dose - Potassium Replacement) 1 dose .XX ASDIRECTED [facility] Rifaximin (Xifaxan) 550 mg PO BID [facility] Last Admin: 05/12/17 08:09 Dose: 550 mg Sodium Chloride (Saline Flush) 10 ml FLUSH ASDIRECTED PRN PRN Reason: Keep Vein Open Spironolactone (Aldactone) 50 mg PO BID [facility] Last Admin: 05/12/17 08:08 Dose: 50 mg Thiamine HCl (Vitamin B-1) 100 mg PO BEDTIME [facility] Last Admin: 05/11/17 21:10 Dose: 100 mg Discontinued Medications Enoxaparin Sodium (Lovenox) 40 mg SUBCUT DAILY [facility] Last Admin: 05/11/17 17:25 Dose: Not Given Furosemide (Lasix) 40 mg IVPUSH NOW ONE Stop: 05/11/17 03:25 Last Admin: 05/11/17 04:26 Dose: 40 mg Sodium Chloride (Normal Saline) 1,000 mls @ 75 mls/hr IV ASDIRECTED [facility] Last Admin: 05/11/17 01:36 Dose: 75 mls/hr Magnesium Sulfate 2 gm/ Premix 50 mls @ 50 mls/hr IV ONETIME ONE Stop: 05/12/17 07:59 Last Admin: 05/12/17 08:03 Dose: 50 mls/hr Insulin Aspart (Novolog) 0 unit SUBCUT ASDIRECTED [facility] PRN Reason: Protocol Lactulose (Cephulac) 20 gm PO ONETIME ONE Stop: 05/11/17 01:35 Last Admin: 05/11/17 01:57 Dose: 20 gm Lactulose (Cephulac) 20 gm PO TID [facility] Last Admin: 05/11/17 07:07 Dose: 20 gm Metformin HCl (Glucophage) 850 mg PO BIDMEALS [facility] Pantoprazole Sodium (Protonix) 40 mg PO DAILY [facility] Stop: 05/11/17 10:00 Last Admin: 05/11/17 08:50 Dose: 40 mg Rifaximin (Xifaxan) 550 mg PO BID [facility] - Exam General: Alert, Oriented, Cooperative, No Acute Distress, Other (Obese) HEENT: Pupils Equal, Pupils Reactive, EOMI, Mucous Membr. Moist/[place], Scleral Icterus (Mild) Neck: Supple, Trachea Midline, No JVD, No Thyromegaly Lungs: Clear to Auscultation, Normal Respiratory Effort Cardiovascular: Regular Rate, Regular Rhythm GI/Abdominal Exam: Normal Bowel Sounds, Soft, Non-Tender, No Distention, No Abnormal Bruit, No Mass (Obese), Other (Male) Exam: Deferred Back Exam: Normal Inspection, Decreased Range of Motion Extremities: Normal Inspection, Normal Range of Motion, Non-Tender, Other ( Trace bilateral lower extremity edema; Asterixis on bilateral wrist) Peripheral Pulses: 2+: Dorsalis Pedis (L), Dorsalis Pedis (R) Skin: Warm, Dry, Intact Neurological: No New Focal Deficit Psy/Mental Status: Alert, Normal Affect, Normal Mood - Problem List Review Problem List Initiated/Reviewed/Updated: Yes - My Orders Last 24 Hours: My Active Orders 05/11/17 07:59 LORazepam [Ativan] 2 mg IVPUSH Q4H PRN Metoprolol Tartrate [Lopressor] 5 mg IVPUSH Q4H PRN hydrALAZINE [Apresoline] 20 mg IVPUSH Q4H PRN 05/11/17 08:01 Height and Weight [RC] 04 Intake and Output [RC] 04,16 Oxygen Therapy [RC] PRN Up With Assistance [RC] ASDIRECTED Up ad Ritu [RC] ASDIRECTED VTE/DVT Education [RC] PER UNIT ROUTINE Vital Signs [RC] Q4HR Albuterol [Proventil Neb Soln] 2.5 mg NEB Q2H PRN HYDROmorphone [Dilaudid] 0.5 mg IVPUSH Q2H PRN Ibuprofen [Motrin] 600 mg PO Q6H PRN LORazepam [Ativan] 1 mg IV Q6H PRN Ondansetron [Zofran] 4 mg IV Q6H PRN Promethazine [Phenergan] 12.5 mg Sodium Chloride 0.9% [Normal Saline] 50 ml IV Q6H oxyCODONE 5 mg PO Q4H PRN 05/11/17 08:04 RT Aerosol Therapy [RC] ASDIRECTED 05/11/17 08:05 Consult to Case Management [CONS] Routine Consult to Sealing And Canceling Machine Operator [CONS] Routine Consult to Spiritual Care [CONS] Routine OT Evaluation and Treatment [CONS] Routine PT Evaluation and Treatment [CONS] Routine 05/11/17 08:08 Lactulose [Cephulac] 30 gm PO TID 05/11/17 08:09 Dextrose 50% in Water 50 ml IVPUSH ASDIRECTED PRN 05/11/17 08:15 Magnesium Rep Pharmacy to Dose [Pharmacy to Dose - Magnesium Replacement] 1 dose .XX ASDIRECTED Potassium Rep Pharmacy to Dose [Pharmacy to Dose - Potassium Replacement] 1 dose .XX ASDIRECTED Sodium Chloride 0.9% [Normal Saline] 1,000 ml IV ASDIRECTED 05/11/17 08:25 METHYLMALONIC ACID [REF] Stat 05/11/17 09:00 Magnesium Oxide 400 mg PO BID Rifaximin [Xifaxan] 550 mg PO BID Spironolactone [Aldactone] 50 mg PO BID 05/11/17 12:57 Antiembolic Devices [RC] QSHIFT 05/11/17 13:23 Consult to Dietary [Consult to Casting Carrier] [CONS] Routine 05/11/17 13:30 Thiamine [Vitamin B-1] 100 mg PO BEDTIME 05/11/17 13:45 Antiembolic Devices [RC] PER UNIT ROUTINE CYNTHIA Hose [Antiembolic Hose] [OM.PC] Routine 05/11/17 21:00 Insulin Aspart [NovoLOG] See Protocol SUBCUT BID@0700,2100 Multivitamins/Iron/Folic Acid [Cerovite Advanced Formula Tablet] 1 tab PO BEDTIME glipiZIDE [Glucotrol XL] 2.5 mg PO BID 05/12/17 06:00 Pantoprazole [ProTONIX] 40 mg PO ACBREAKFAST 05/12/17 09:00 Iron Sucrose Complex [Venofer] 200 mg Sodium Chloride 0.9% [Normal Saline] 250 ml IV ONETIME 05/13/17 05:11 BASIC METABOLIC PANEL,BMP [CHEM] AM C-REACTIVE PROTEIN [CHEM] AM CBC WITH AUTO DIFF [HEME] AM MAGNESIUM [CHEM] AM 05/14/17 05:11 BASIC METABOLIC PANEL,BMP [CHEM] AM C-REACTIVE PROTEIN [CHEM] AM CBC WITH AUTO DIFF [HEME] AM MAGNESIUM [CHEM] AM 05/15/17 05:11 BASIC METABOLIC PANEL,BMP [CHEM] AM C-REACTIVE PROTEIN [CHEM] AM CBC WITH AUTO DIFF [HEME] AM MAGNESIUM [CHEM] AM 05/16/17 05:11 BASIC METABOLIC PANEL,BMP [CHEM] AM C-REACTIVE PROTEIN [CHEM] AM CBC WITH AUTO DIFF [HEME] AM MAGNESIUM [CHEM] AM - Plan Plan:: Assessment/Plan: Acute: Hepatic Encephalopathy, Improved - Acute on Chronic - 2/2 Advanced Liver Disease and Medical Non-Compliance - CXR: No acute abnormal findings - Ammonia level on admission-182; repeat level in am - UA negative for UTI - Resume Home Meds: Lactulose and Xifaxan - No need for serial ammonia level - Avoid NSAIDs if all possible - Continue MVI, Folic Acid and Thiamine Supplement DM2 with Hyperglycemia - BS in the 200s; improved - He is on Metformin 850 mg po BID - Added Glipzide 2.5 mg po BID yesterday; will up dose to 5 mg - A1C is 6.90 - Continue Accu-check AM/HS and ISS Chronic: Advanced Liver Disease from Hx/o Alcohol Abuse Hx/o Esophageal Varices S/p TIPS Obesity with BMI of 36.8 Pantocypenia - Leukocytopenia - WBC 2.34 --> 2.13 - Neutrophils remains adequate - He has no signs of systemic infection - He remains afebrile - Unclear where the source is; possibly from Advanced Liver Disease - Anemia - Hgb 9.1--> 8.8 today; No active GI Bleed or complaints of Melenic Stool but has Hx/o Esophageal Varices - Iron Panel: Suggestive of AVEL 2/2 Chronic Disease (likely Advanced Liver Disease) - Vit B12 and Folate levels: are adequate - IV Iron infusion today - Thrombocytopenia - Platelet level 38 --> 35 - This is Likely 2/2 Splenic Sequestration - No anti-coags; will monitor Hyperbilirubinemia - Total Bili 1.9; Urine Urobilinogen 4 (elevated) - 2/2 Advanced Liver Disease - Mild scleral icterus - Monitor Malnutrition - Albumin level is 1.9 - 2/2 Advanced Liver Disease - Dietary consult for protein intake Medical Non-Compliance Plan: He is clinically stable Continue current treatment Routine AM Labs Discontinue PT/OT; he is ambulating GI PPx: PPI DVT PPx: Stockings or CYNTHIA Williams Diabetic consult if available SW/CM for d/c planning Code status: 1 Possible d/c in 1-2 days
--- NOTE | 2017-05-12 18:06 | CR ---
Chest: Portable view of the chest was obtained. Comparison: Previous chest x-ray of 04/23/17. Pulmonary vessels are felt to be mildly congested. Heart size appears within normal limits for portable technique. Vascular stent is noted within the right hilum. Bony structures are grossly intact. Impression: 1. Mild pulmonary vascular congestion. Diagnostic code #3
[2017-05-12] MEDS: Thiamine 100 MG Tab PO SCH (20:14)
[2017-05-12] MEDS: Multivitamin/Iron/Folic Acid Tab PO SCH (20:15)
[2017-05-12] MEDS ORDERED: Diphtheria,Pertussis(Acell),Tetanus Vaccine 0.5 ML SDV IM ONE (23:42)
[2017-05-13] MEDS: Sodium Chloride 0.9% 1,000 ML IV SCH (03:25)
[2017-05-13] MEDS: Pantoprazole 40 MG Tab.CR PO SCH (06:53)
[2017-05-13] MEDS: Levothyroxine 100 MCG Tab PO SCH (06:54)
[2017-05-13] MEDS: Furosemide 40 MG/4 ML VIAL IVPUSH SCH ×2 (06:55→14:57)
[2017-05-13] MEDS: Insulin Aspart 100 Units/ML 3 ML Pen SUBCUT SCH ×2 (07:05→20:20)
[2017-05-13] MEDS: Lactulose Soln 10 GM/15 ML 30 ML UD Cup PO SCH ×4 (07:46→20:17)
[2017-05-13] MEDS: Spironolactone 25 MG Tab PO SCH ×3 (07:46→20:19)
[2017-05-13] MEDS: glipiZIDE 2.5 MG Tab.ER PO SCH ×3 (07:48→20:19)
[2017-05-13] MEDS: Rifaximin 550 MG Tab PO SCH ×3 (07:48→20:19)
[2017-05-13] MEDS: Magnesium Oxide 400 MG Tab PO SCH ×3 (07:48→20:19)
[2017-05-13] MEDS ORDERED: Magnesium Sulfate/Water 2 GM in Premix Bag 1 BAG IV ONE (08:00)
[2017-05-13] MEDS ORDERED: FLU Vacc QS 2017-18 (6mos UP)/PF 60 MCG/0.5 ML Syringe IM ONE (10:00)
--- NOTE | 2017-05-13 10:35 | PCM.PN ---
- General Info Date of Service: 05/13/17 Admission Dx/Problem (Free Text): Admission Diagnosis/Problem Admission Diagnosis/Problem Hepatic encephalopathy Subjective Update: Follow Up Functional Status: Reports: Pain Controlled, Tolerating Diet, Ambulating, Urinating - Review of Systems General: Reports: No Symptoms. Denies: Weakness, Fatigue HEENT: Reports: No Symptoms. Denies: Dysphasia, Headaches, Sore Throat Pulmonary: Reports: No Symptoms. Denies: Shortness of Breath, Cough, Hemoptysis Cardiovascular: Reports: No Symptoms. Denies: Chest Pain, Palpitations Gastrointestinal: Reports: No Symptoms, Other (Pt reported having a "sore butt" from going to the bathroom frequently. ). Denies: Abdominal Pain, Constipation , Decreased Appetite, Nausea, Vomiting Genitourinary: Reports: No Symptoms. Denies: Dysuria, Frequency, Burning Musculoskeletal: Reports: No Symptoms Skin: Reports: No Symptoms. Denies: Jaundice, Pruritis, Rash Neurological: Reports: No Symptoms. Denies: Confusion, Dizziness, Trouble Speaking, Difficulty Walking, Weakness Psychiatric: Reports: No Symptoms. Denies: Confusion, Mood Lability, Anxiety Systems Review Comment:: Jose states that he feels well, better than a few days ago and expressed a want to go home. He was also wondering about his blood levels and if they had improved. - Patient Data Vitals - Most Recent: Last Vital Signs Temp 97.5 F 05/13/17 07:45 Pulse 81 05/13/17 07:45 Resp 20 05/13/17 07:45 BP 122/59 L 05/13/17 07:45 Pulse Ox 94 L 05/13/17 07:45 Weight - Most Recent: 269 lb 1.6 oz I&O - Last 24 Hours: Intake & Output 05/12/17 05/13/17 05/13/17 22:59 06:59 14:59 Intake Total 2390 1033 360 Output Total 1300 1100 Balance 1090 -67 360 Lab Results Last 24 Hours: Laboratory Results - last 24 hr 05/12/17 05/13/17 05/13/17 Range/Units 20:13 06:20 06:20 WBC 2.18 L* (4.23-9.07) K/mm3 RBC 2.71 L (4.63-6.08) M/mm3 Hgb 8.6 L (13.7-17.5) gm/L Hct 25.6 L (40.1-51.0) % MCV 94.5 H (79.0-92.2) fl MCH 31.7 (25.7-32.2) pg MCHC 33.6 (32.2-35.5) g/dl RDW Std Deviation 52.0 H (35.1-43.9) fL Plt Count 36 L (163-337) K/mm3 MPV 9.6 (9.4-12.3) fl Neut % (Auto) 47.6 (34.0-67.9) % Lymph % (Auto) 37.6 (21.8-53.1) % [place] % (Auto) 11.5 (5.3-12.2) % Eos % (Auto) 2.8 (0.8-7.0) Baso % (Auto) 0.5 (0.1-1.2) % Neut # (Auto) 1.04 L (1.78-5.38) K/mm3 Lymph # (Auto) 0.82 L (1.32-3.57) K/mm3 [place] # (Auto) 0.25 L (0.30-0.82) K/mm3 Eos # (Auto) 0.06 (0.04-0.54) K/mm3 Baso # (Auto) 0.01 (0.01-0.08) K/mm3 Manual Slide Review Abnormal smear Sodium 140 (136-145) mEq/L Potassium 3.5 (3.5-5.1) mEq/L Chloride 110 H (98-107) mEq/L Carbon Dioxide 24 (21-32) mEq/L Anion Gap 9.5 (5-15) BUN 10 (7-18) mg/dL Creatinine 0.7 (0.7-1.3) mg/dL Est Cr Clr Drug Dosing 127.79 mL/min Estimated GFR (MDRD) > 60 (>60) mL/min BUN/Creatinine Ratio 14.3 (14-18) Glucose 115 H (74-106) mg/dL POC Glucose 157 H (70-105) mg/dL Calcium 8.1 L (8.5-10.1) mg/dL Magnesium 1.6 L (1.8-2.4) mg/dl Ammonia (11-32) umol/L C-Reactive Protein 0.3 (<1.0) mg/dL Albumin 1.6 L (3.4-5.0) g/dl 05/13/17 05/13/17 Range/Units 06:20 07:04 WBC (4.23-9.07) K/mm3 RBC (4.63-6.08) M/mm3 Hgb (13.7-17.5) gm/L Hct (40.1-51.0) % MCV (79.0-92.2) fl MCH (25.7-32.2) pg MCHC (32.2-35.5) g/dl RDW Std Deviation (35.1-43.9) fL Plt Count (163-337) K/mm3 MPV (9.4-12.3) fl Neut % (Auto) (34.0-67.9) % Lymph % (Auto) (21.8-53.1) % [place] % (Auto) (5.3-12.2) % Eos % (Auto) (0.8-7.0) Baso % (Auto) (0.1-1.2) % Neut # (Auto) (1.78-5.38) K/mm3 Lymph # (Auto) (1.32-3.57) K/mm3 [place] # (Auto) (0.30-0.82) K/mm3 Eos # (Auto) (0.04-0.54) K/mm3 Baso # (Auto) (0.01-0.08) K/mm3 Manual Slide Review Sodium (136-145) mEq/L Potassium (3.5-5.1) mEq/L Chloride (98-107) mEq/L Carbon Dioxide (21-32) mEq/L Anion Gap (5-15) BUN (7-18) mg/dL Creatinine (0.7-1.3) mg/dL Est Cr Clr Drug Dosing mL/min Estimated GFR (MDRD) (>60) mL/min BUN/Creatinine Ratio (14-18) Glucose (74-106) mg/dL POC Glucose 94 (70-105) mg/dL Calcium (8.5-10.1) mg/dL Magnesium (1.8-2.4) mg/dl Ammonia 131 H (11-32) umol/L C-Reactive Protein (<1.0) mg/dL Albumin (3.4-5.0) g/dl Med Orders - Current: Current Medications Albuterol (Proventil Neb Soln) 2.5 mg NEB Q2H PRN PRN Reason: Shortness Of Breath/wheezing Dextrose/Water (Dextrose 50% In Water) 50 ml IVPUSH ASDIRECTED PRN PRN Reason: Hypoglycemia Furosemide (Lasix) 40 mg IVPUSH BIDDIURETIC [facility] Last Admin: 05/13/17 06:55 Dose: 40 mg Glipizide (Glucotrol Xl) 2.5 mg PO BID [facility] Last Admin: 05/13/17 09:04 Dose: Not Given Hydralazine HCl (Apresoline) 20 mg IVPUSH Q4H PRN PRN Reason: Hypertension Hydromorphone HCl (Dilaudid) 0.5 mg IVPUSH Q2H PRN PRN Reason: Pain (severe 7-10) Promethazine HCl 12.5 mg/ (Sodium Chloride) 50.5 mls @ 100 mls/hr IV Q6H PRN PRN Reason: Nausea/Vomiting Sodium Chloride (Normal Saline) 1,000 mls @ 125 mls/hr IV ASDIRECTED [facility] Last Admin: 05/13/17 03:25 Dose: 125 mls/hr Ibuprofen (Motrin) 600 mg PO Q6H PRN PRN Reason: Pain (moderate 4-6) Insulin Aspart (Novolog) 0 unit SUBCUT BID@0700,2100 [facility] PRN Reason: Protocol Last Admin: 05/13/17 07:05 Dose: Not Given Lactulose (Cephulac) 30 gm PO TID [facility] Last Admin: 05/13/17 09:04 Dose: Not Given Levothyroxine Sodium (Synthroid) 100 mcg PO DAILY@0700 [facility] Last Admin: 05/13/17 06:54 Dose: 100 mcg Lorazepam (Ativan) 2 mg IVPUSH Q4H PRN PRN Reason: Seizures Lorazepam (Ativan) 1 mg IV Q6H PRN PRN Reason: Anxiety Magnesium Oxide (Magnesium Oxide) 400 mg PO BID [facility] Last Admin: 05/13/17 09:04 Dose: Not Given Magnesium Sulfate (Pharmacy To Dose - Magnesium Replacement) 0 dose .XX ASDIRECTED PRN PRN Reason: RX TO WATCH MAG LEVELS Metformin HCl (Glucophage) 850 mg PO BIDMEALS [facility] Last Admin: 05/13/17 06:54 Dose: 850 mg Metoprolol Tartrate (Lopressor) 5 mg IVPUSH Q4H PRN PRN Reason: Tachycardia Multivitamins/Minerals (Cerovite Advanced Formula Tablet) 1 tab PO BEDTIME [facility] Last Admin: 05/12/17 20:15 Dose: Not Given Ondansetron HCl (Zofran) 4 mg IV Q6H PRN PRN Reason: Nausea/Vomiting Oxycodone HCl (Oxycodone) 5 mg PO Q4H PRN PRN Reason: Pain (moderate 4-6) Pantoprazole Sodium (Protonix) 40 mg PO ACBREAKFAST [facility] Last Admin: 05/13/17 06:53 Dose: 40 mg Potassium Chloride (Pharmacy To Dose - Potassium Replacement) 0 dose .XX ASDIRECTED PRN PRN Reason: RX TO WATCH K LEVELS Rifaximin (Xifaxan) 550 mg PO BID [facility] Last Admin: 05/13/17 09:04 Dose: Not Given Sodium Chloride (Saline Flush) 10 ml FLUSH ASDIRECTED PRN PRN Reason: Keep Vein Open Spironolactone (Aldactone) 50 mg PO BID [facility] Last Admin: 05/13/17 09:04 Dose: Not Given Thiamine HCl (Vitamin B-1) 100 mg PO BEDTIME [facility] Last Admin: 05/12/17 20:14 Dose: 100 mg Discontinued Medications Diphtheria/Tetanus/Acell Pertussis (Adacel) 0.5 ml IM .ONCE ONE Stop: 05/12/17 23:43 Enoxaparin Sodium (Lovenox) 40 mg SUBCUT DAILY [facility] Last Admin: 05/11/17 17:25 Dose: Not Given Furosemide (Lasix) 40 mg IVPUSH NOW ONE Stop: 05/11/17 03:25 Last Admin: 05/11/17 04:26 Dose: 40 mg Glipizide (Glucotrol Xl) 2.5 mg PO BID [facility] Last Admin: 05/12/17 08:09 Dose: 2.5 mg Sodium Chloride (Normal Saline) 1,000 mls @ 75 mls/hr IV ASDIRECTED [facility] Last Admin: 05/11/17 01:36 Dose: 75 mls/hr Magnesium Sulfate 2 gm/ Premix 50 mls @ 50 mls/hr IV ONETIME ONE Stop: 05/12/17 07:59 Last Admin: 05/12/17 08:03 Dose: 50 mls/hr Sodium Ferric Gluconat/Sucrose (250 mg/ Sodium Chloride) 120 mls @ 60 mls/hr IV ONETIME ONE Stop: 05/12/17 11:59 Last Admin: 05/12/17 09:59 Dose: 60 mls/hr Magnesium Sulfate 2 gm/ Premix 50 mls @ 25 mls/hr IV ONETIME ONE Stop: 05/13/17 09:59 Last Admin: 05/13/17 07:46 Dose: 25 mls/hr Insulin Aspart (Novolog) 0 unit SUBCUT ASDIRECTED [facility] PRN Reason: Protocol Lactulose (Cephulac) 20 gm PO ONETIME ONE Stop: 05/11/17 01:35 Last Admin: 05/11/17 01:57 Dose: 20 gm Lactulose (Cephulac) 20 gm PO TID [facility] Last Admin: 05/11/17 07:07 Dose: 20 gm Metformin HCl (Glucophage) 850 mg PO BIDMEALS [facility] Pantoprazole Sodium (Protonix) 40 mg PO DAILY [facility] Stop: 05/11/17 10:00 Last Admin: 05/11/17 08:50 Dose: 40 mg Rifaximin (Xifaxan) 550 mg PO BID [facility] - Exam General: Alert, Oriented, Cooperative, No Acute Distress, Other (tired, but not lethargic) HEENT: Pupils Equal, Pupils Reactive, EOMI, Mucous Membr. Moist/[place], Scleral Icterus Neck: Supple, Trachea Midline, No JVD, No Thyromegaly. No: Lymphadenopathy Lungs: Clear to Auscultation, Normal Respiratory Effort. No: Crackles, Rhonchi , Wheezing Cardiovascular: Regular Rate, Regular Rhythm, No Murmurs GI/Abdominal Exam: Normal Bowel Sounds, Soft, Non-Tender, No Mass, Other ( unable to palpate organs due to body habitus.) (Male) Exam: Deferred Back Exam: Normal Inspection, Full Range of Motion Extremities: Normal Inspection, Normal Range of Motion, Non-Tender, Normal Capillary Refill, Pedal Edema (trace, non-pitting). No: Leg Pain, Mottled Peripheral Pulses: 2+: Radial (L), Radial (R), Posterior Tibial (L), Posterior Tibial (R) Skin: Warm, Dry, Intact. No: Rash Neurological: No New Focal Deficit, Normal Gait, Normal Speech Psy/Mental Status: Alert, Normal Affect, Normal Mood - Problem List Review Problem List Initiated/Reviewed/Updated: Yes - Assessment Assessment:: Upon initial observations, Kaden seems to be making positive progress. I calculated his MELD score with a result of 12 and 3 month mortality rate at 6%. From what I can understand, Kaden has been referred to a GI specialist in the past; regarding the possibility of a liver transplant, but has been unsuccessful to make it to appointments. I would recommend trying to set up another appointment with a GI specialist and urge the importance of keeping the appointment, as he would benefit greatly from this. - Plan Plan:: Assessment/Plan: Acute: Hepatic Encephalopathy, Improved - Acute on Chronic - 2/2 Advanced Liver Disease and Medical Non-Compliance - CXR: No acute abnormal findings - Ammonia level on admission-182; ammonia level today is 131 - UA negative for UTI - Resume Home Meds: Lactulose and Xifaxan - No need for serial ammonia level - Avoid NSAIDs if all possible - Continue MVI, Folic Acid and Thiamine Supplement DM2 with Hyperglycemia - BS in the 200s; improved with today's level bein - He is on Metformin 850 mg po BID - Added Glipzide 2.5 mg po BID yesterday; will up dose to 5 mg - A1C is 6.90 - Continue Accu-check AM/HS and ISS Chronic: Advanced Liver Disease from Hx/o Alcohol Abuse Hx/o Esophageal Varices S/p TIPS Obesity with BMI of 36.8 Pantocypenia - Leukocytopenia - WBC 2.13 --> 2.18 - Neutrophils remains adequate - He has no signs of systemic infection - He remains afebrile - Unclear where the source is; possibly from Advanced Liver Disease - Anemia - Hgb 8.8--> 8.6 today; No active GI Bleed or complaints of Melenic Stool but has Hx/o Esophageal Varices - Iron Panel: Suggestive of AVEL 2/2 Chronic Disease (likely Advanced Liver Disease) - Vit B12 and Folate levels: are adequate - IV Iron infusion today - Thrombocytopenia - Platelet level 35 --> 36 - This is Likely 2/2 Splenic Sequestration - No anti-coags; will monitor Hyperbilirubinemia - Total Bili 1.9; Urine Urobilinogen 4 (elevated) - 2/2 Advanced Liver Disease - Mild scleral icterus - Monitor Malnutrition - Albumin level is 1.9 - 2/2 Advanced Liver Disease - Dietary consult for protein intake Medical Non-Compliance Plan: He is clinically stable Continue current treatment Routine AM Labs Discontinue PT/OT; he is ambulating GI PPx: PPI DVT PPx: Stockings or CYNTHIA Kramer Diabetic consult if available SW/CM for d/c planning Code status: 1 Possible d/c in 1-2 days
[2017-05-13] MEDS ORDERED: HYDROmorphone 0.5 MG/0.5 ML Syringe IVPUSH PRN (11:36)
[2017-05-13] MEDS: Thiamine 100 MG Tab PO SCH (20:19)
[2017-05-13] MEDS ORDERED: Multivitamins,Therapeutic Tab PO SCH (21:00)
[2017-05-14] MEDS: Insulin Aspart 100 Units/ML 3 ML Pen SUBCUT SCH (06:43)
[2017-05-14] MEDS: Pantoprazole 40 MG Tab.CR PO SCH (06:54)
[2017-05-14] MEDS: Furosemide 40 MG/4 ML VIAL IVPUSH SCH ×2 (06:54→14:57)
[2017-05-14] MEDS: Levothyroxine 100 MCG Tab PO SCH (06:55)
--- NOTE | 2017-05-14 06:56 | PCM.DCSUM1 ---
Discharge Summary - Hospital Course Free Text/Narrative:: This ia 56 yo male with significant hepatic disease who comes in via ambulance due to worsening mental status. Patient is well known to the hospitalist team due to multiple admissions related to hepatic encephalopathy. His initial workup in the emergency department shows a CBC remarkable for WBC of 2.34, RBC of 2.84, hemoglobin of 9.1, hematocrit of 26.6, MCV of 93.7, platelet of 38, and neutrophils of 66%. PT is 15, INR is 1.25, APTT is 42. His chemistry is remarkable for chloride of 109, glucose of 235, A1c of 6.9, calcium of 8.2, total bilirubin of 1.9, ammonia of 182, proBNP of 252, albumin 1.9 and TSH of 5.59. His UA is not suggestive of UTI. Chest x-ray shows increased central lung markings but no appreciable acute abnormalities. 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 He is here for acute on chronic hepatic encephalopathy. He is full code. Medications were restarted including lactulose TID. He is started on lasix IVP BID. Mental status slowly improved. Ammonia level was rechecked and improved to 131. Edema improved. He was eating, drinking, ambulating. A1C is 6.9. He is found to have iron deficiency, likely related to hx esophageal varices, ferrous sulfate is started. He denies melena/hematochezia. He is known to be noncompliant with lactulose at home, again, long discussion with him on day of discharge re: compliance to prevent recurrent admissions. He voices understanding. He will be discharged home today, family to drive him. He is to follow up with S provider in [place] within 3-4 days. Gastroenterology as soon as he can and is able to determine where he is at with his liver disease. - Discharge Data Discharge Date: 05/14/17 (admit date 05/11/17) Discharge Disposition: Home, Self-Care 01 Condition: Fair - Discharge Diagnosis/Problem(s) (1) Hepatic encephalopathy SNOMED Code(s): 63628770 ICD Code: K72.90 - HEPATIC FAILURE, UNSPECIFIED WITHOUT COMA Status: Resolved Priority: High Current Visit: Yes (2) Cirrhosis of liver SNOMED Code(s): 92055938 ICD Code: K74.60 - UNSPECIFIED CIRRHOSIS OF LIVER Status: Chronic Priority: High Current Visit: Yes (3) Diabetes mellitus type 2 SNOMED Code(s): 39376542 ICD Code: E11.9 - TYPE 2 DIABETES MELLITUS WITHOUT COMPLICATIONS Status: Chronic Priority: High Current Visit: Yes (4) Pancytopenia SNOMED Code(s): 063398954 ICD Code: D61.818 - OTHER PANCYTOPENIA Status: Chronic Priority: Medium Current Visit: Yes (5) Serum ammonia increased SNOMED Code(s): 9301273 ICD Code: E72.20 - DISORDER OF UREA CYCLE METABOLISM, UNSPECIFIED Status: Chronic Priority: High Current Visit: Yes (6) Esophageal varices SNOMED Code(s): 33350513 ICD Code: I85.00 - ESOPHAGEAL VARICES WITHOUT BLEEDING Status: Chronic Priority: Medium Current Visit: No Onset Date: 02/20/14 Problem Details: by history (7) Obesity SNOMED Code(s): 377917807 ICD Code: E66.9 - OBESITY, UNSPECIFIED Status: Chronic Priority: Medium Current Visit: Yes (8) Iron deficiency anemia SNOMED Code(s): 64746194 ICD Code: D50.9 - IRON DEFICIENCY ANEMIA, UNSPECIFIED Status: Chronic Priority: Medium Current Visit: Yes Qualifiers: Iron deficiency anemia type: unspecified iron deficiency Qualified Code(s) : D50.9 - Iron deficiency anemia, unspecified - Patient Summary/Data Operative Procedure(s) Performed: None Complications: None Consults: Consultations 05/11/17 08:05 Consult to Case Management [CONS] Routine Consult to Hvac Tech [CONS] Routine Consult to Spiritual Care [CONS] Routine OT Evaluation and Treatment [CONS] Routine PT Evaluation and Treatment [CONS] Routine 05/11/17 13:23 Consult to Dietary [Consult to Tank Shop Supervisor] [CONS] Routine Labs Pending at D/C: None Recommended Follow-up Testing/Procedures: DC instructions: Follow up at clinic in [place] within 3-4 days of discharge TAKE LACTULOSE PRESCRIBED Take all medications as prescribed- this will prevent readmission and is very important to help you ammonia levels stay down. You need to follow up with your Professor Of Pathology in [place] to see where you are at with your liver disease progression. 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) Activity: As Tolerated Driving: Do Not Drive Showering/Bathing: May Shower Notify Provider of: Fever, Increased Pain, Nausea and/or Vomiting - Discharge Plan Prescriptions/Med Rec: Ferrous Sulfate 325 mg PO DAILY #30 tablet Furosemide [Lasix] 40 mg PO DAILY #30 tablet Lactulose [Cephulac] 30 gm PO TID #1 bottle Levothyroxine [Synthroid] 100 mcg PO DAILY@0700 #30 tablet Potassium Chloride 20 meq PO DAILY #30 tablet.er Thiamine [Vitamin B-1] 100 mg PO BEDTIME #30 tablet Home Medications: Home Meds Pantoprazole [ProTONIX] 40 mg PO ACBREAKFAST #30 tab.cr 12/08/15 [Rx] Spironolactone 50 mg PO BID 03/03/16 [History] Rifaximin [Xifaxan] 550 mg PO BID 06/13/16 [History] metFORMIN [Glucophage] 850 mg PO BID 06/13/16 [History] Magnesium Oxide 400 mg PO BID #30 tablet 04/25/17 [Rx] Ferrous Sulfate 325 mg PO DAILY #30 tablet 05/14/17 [Rx] Furosemide [Lasix] 40 mg PO DAILY #30 tablet 05/14/17 [Rx] Lactulose [Cephulac] 30 gm PO TID #1 bottle 05/14/17 [Rx] Levothyroxine [Synthroid] 100 mcg PO DAILY@0700 #30 tablet 05/14/17 [Rx] Multivitamins,Therapeutic [Thera] 1 each PO BEDTIME tablet 05/14/17 [Rx] Potassium Chloride 20 meq PO DAILY #30 tablet.er 05/14/17 [Rx] Thiamine [Vitamin B-1] 100 mg PO BEDTIME #30 tablet 05/14/17 [Rx] Patient Handouts: Anemia, Nonspecific, Ammonia Test, Cirrhosis, Hyperglycemia, [id number]-[id number], Iron Level and Total Iron-Binding Capacity Tests, Heart Failure, [id number], How to Avoid Diabetes Problems, Type 2 Diabetes Mellitus, Adult, Estz-hn-Bylm, Blood Glucose Monitoring, Adult, Hypoglycemia, Kbig-tf-Hssc Forms: ED Department Discharge Referrals: PCP,Not In Area [Primary Care Provider] - - Discharge Summary/Plan Comment DC Time >30 min.: Yes (40 min) - General Info Date of Service: 05/14/17 Admission Dx/Problem (Free Text: Admission Diagnosis/Problem Admission Diagnosis/Problem Hepatic encephalopathy Patient seen this morning. Requests to be discharged today. Doing much better. Is alert. Has been ambulatory. Family will pick him up today. Functional Status: Reports: Pain Controlled, Tolerating Diet, Ambulating, Urinating. Denies: New Symptoms - Review of Systems General: Reports: No Symptoms HEENT: Reports: No Symptoms Pulmonary: Reports: No Symptoms. Denies: Shortness of Breath Cardiovascular: Reports: No Symptoms. Denies: Chest Pain, Palpitations, Dyspnea on Exertion Gastrointestinal: Reports: No Symptoms, Other (loose stools, lots of BM's). Denies: Abdominal Pain, Hematochezia, Melena, Nausea, Vomiting Genitourinary: Reports: No Symptoms Musculoskeletal: Reports: No Symptoms Skin: Reports: No Symptoms Neurological: Reports: No Symptoms. Denies: Confusion (states resolved), Headache Psychiatric: Reports: No Symptoms - Patient Data Vitals - Most Recent: Last Vital Signs Temp 98.2 F 05/14/17 03:43 Pulse 79 05/14/17 03:43 Resp 18 05/14/17 03:43 BP 114/57 L 05/14/17 03:43 Pulse Ox 96 05/14/17 03:43 Weight - Most Recent: 265 lb 12.8 oz I&O - Last 24 hours: Intake & Output 05/13/17 05/13/17 05/14/17 14:59 22:59 06:59 Intake Total 720 1330 650 Output Total 1900 1350 Balance 720 -570 -700 Lab Results - Last 24 hrs: Laboratory Results - last 24 hr 05/13/17 05/13/17 05/13/17 Range/Units 06:20 06:20 07:04 WBC (4.23-9.07) K/mm3 RBC (4.63-6.08) M/mm3 Hgb (13.7-17.5) gm/L Hct (40.1-51.0) % MCV (79.0-92.2) fl MCH (25.7-32.2) pg MCHC (32.2-35.5) g/dl RDW Std Deviation (35.1-43.9) fL Plt Count (163-337) K/mm3 MPV (9.4-12.3) fl Neut % (Auto) (34.0-67.9) % Lymph % (Auto) (21.8-53.1) % [place] % (Auto) (5.3-12.2) % Eos % (Auto) (0.8-7.0) Baso % (Auto) (0.1-1.2) % Neut # (Auto) (1.78-5.38) K/mm3 Lymph # (Auto) (1.32-3.57) K/mm3 [place] # (Auto) (0.30-0.82) K/mm3 Eos # (Auto) (0.04-0.54) K/mm3 Baso # (Auto) (0.01-0.08) K/mm3 Manual Slide Review Abnormal smear POC Glucose 94 (70-105) mg/dL Ammonia 131 H (11-32) umol/L 05/13/17 05/13/17 05/14/17 Range/Units 17:33 20:16 06:25 WBC (4.23-9.07) K/mm3 RBC (4.63-6.08) M/mm3 Hgb (13.7-17.5) gm/L Hct (40.1-51.0) % MCV (79.0-92.2) fl MCH (25.7-32.2) pg MCHC (32.2-35.5) g/dl RDW Std Deviation (35.1-43.9) fL Plt Count (163-337) K/mm3 MPV (9.4-12.3) fl Neut % (Auto) (34.0-67.9) % Lymph % (Auto) (21.8-53.1) % [place] % (Auto) (5.3-12.2) % Eos % (Auto) (0.8-7.0) Baso % (Auto) (0.1-1.2) % Neut # (Auto) (1.78-5.38) K/mm3 Lymph # (Auto) (1.32-3.57) K/mm3 [place] # (Auto) (0.30-0.82) K/mm3 Eos # (Auto) (0.04-0.54) K/mm3 Baso # (Auto) (0.01-0.08) K/mm3 Manual Slide Review POC Glucose 176 H 145 H 101 (70-105) mg/dL Ammonia (11-32) umol/L 05/14/17 Range/Units 06:26 WBC 2.41 L* (4.23-9.07) K/mm3 RBC 2.80 L (4.63-6.08) M/mm3 Hgb 8.9 L (13.7-17.5) gm/L Hct 26.3 L (40.1-51.0) % MCV 93.9 H (79.0-92.2) fl MCH 31.8 (25.7-32.2) pg MCHC 33.8 (32.2-35.5) g/dl RDW Std Deviation 50.9 H (35.1-43.9) fL Plt Count 36 L (163-337) K/mm3 MPV 10.5 (9.4-12.3) fl Neut % (Auto) 52.6 (34.0-67.9) % Lymph % (Auto) 32.4 (21.8-53.1) % [place] % (Auto) 12.9 H (5.3-12.2) % Eos % (Auto) 1.7 (0.8-7.0) Baso % (Auto) 0.4 (0.1-1.2) % Neut # (Auto) 1.27 L (1.78-5.38) K/mm3 Lymph # (Auto) 0.78 L (1.32-3.57) K/mm3 [place] # (Auto) 0.31 (0.30-0.82) K/mm3 Eos # (Auto) 0.04 (0.04-0.54) K/mm3 Baso # (Auto) 0.01 (0.01-0.08) K/mm3 Manual Slide Review POC Glucose (70-105) mg/dL Ammonia (11-32) umol/L Med Orders - Current: Current Medications Albuterol (Proventil Neb Soln) 2.5 mg NEB Q2H PRN PRN Reason: Shortness Of Breath/wheezing Dextrose/Water (Dextrose 50% In Water) 50 ml IVPUSH ASDIRECTED PRN PRN Reason: Hypoglycemia Furosemide (Lasix) 40 mg IVPUSH BIDDIURETIC [facility] Last Admin: 05/13/17 14:57 Dose: 40 mg Glipizide (Glucotrol Xl) 2.5 mg PO BID [facility] Last Admin: 05/13/17 20:19 Dose: 2.5 mg Hydralazine HCl (Apresoline) 20 mg IVPUSH Q4H PRN PRN Reason: Hypertension Hydromorphone HCl (Dilaudid) 0.5 mg IVPUSH Q2H PRN PRN Reason: Pain (severe 7-10) Promethazine HCl 12.5 mg/ (Sodium Chloride) 50.5 mls @ 100 mls/hr IV Q6H PRN PRN Reason: Nausea/Vomiting Ibuprofen (Motrin) 600 mg PO Q6H PRN PRN Reason: Pain (moderate 4-6) Insulin Aspart (Novolog) 0 unit SUBCUT BID@0700,2100 [facility] PRN Reason: Protocol Last Admin: 05/14/17 06:43 Dose: Not Given Lactulose (Cephulac) 30 gm PO TID [facility] Last Admin: 05/13/17 20:17 Dose: 30 gm Levothyroxine Sodium (Synthroid) 100 mcg PO DAILY@0700 [facility] Last Admin: 05/13/17 06:54 Dose: 100 mcg Lorazepam (Ativan) 2 mg IVPUSH Q4H PRN PRN Reason: Seizures Lorazepam (Ativan) 1 mg IV Q6H PRN PRN Reason: Anxiety Magnesium Oxide (Magnesium Oxide) 400 mg PO BID [facility] Last Admin: 05/13/17 20:19 Dose: 400 mg Magnesium Sulfate (Pharmacy To Dose - Magnesium Replacement) 0 dose .XX ASDIRECTED PRN PRN Reason: RX TO WATCH MAG LEVELS Metformin HCl (Glucophage) 850 mg PO BIDMEALS [facility] Last Admin: 05/13/17 16:30 Dose: 850 mg Metoprolol Tartrate (Lopressor) 5 mg IVPUSH Q4H PRN PRN Reason: Tachycardia Multivitamins (Thera) 1 each PO BEDTIME [facility] Last Admin: 05/13/17 20:19 Dose: 1 each Ondansetron HCl (Zofran) 4 mg IV Q6H PRN PRN Reason: Nausea/Vomiting Oxycodone HCl (Oxycodone) 5 mg PO Q4H PRN PRN Reason: Pain (moderate 4-6) Pantoprazole Sodium (Protonix) 40 mg PO ACBREAKFAST [facility] Last Admin: 05/13/17 06:53 Dose: 40 mg Potassium Chloride (Pharmacy To Dose - Potassium Replacement) 0 dose .XX ASDIRECTED PRN PRN Reason: RX TO WATCH K LEVELS Rifaximin (Xifaxan) 550 mg PO BID [facility] Last Admin: 05/13/17 20:19 Dose: 550 mg Sodium Chloride (Saline Flush) 10 ml FLUSH ASDIRECTED PRN PRN Reason: Keep Vein Open Spironolactone (Aldactone) 50 mg PO BID [facility] Last Admin: 05/13/17 20:19 Dose: 50 mg Thiamine HCl (Vitamin B-1) 100 mg PO BEDTIME [facility] Last Admin: 05/13/17 20:19 Dose: 100 mg Discontinued Medications Diphtheria/Tetanus/Acell Pertussis (Adacel) 0.5 ml IM .ONCE ONE Stop: 05/12/17 23:43 Enoxaparin Sodium (Lovenox) 40 mg SUBCUT DAILY [facility] Last Admin: 05/11/17 17:25 Dose: Not Given Furosemide (Lasix) 40 mg IVPUSH NOW ONE Stop: 05/11/17 03:25 Last Admin: 05/11/17 04:26 Dose: 40 mg Glipizide (Glucotrol Xl) 2.5 mg PO BID [facility] Last Admin: 05/12/17 08:09 Dose: 2.5 mg Hydromorphone HCl (Dilaudid) 0.5 mg IVPUSH Q2H PRN PRN Reason: Pain (severe 7-10) Sodium Chloride (Normal Saline) 1,000 mls @ 75 mls/hr IV ASDIRECTED [facility] Last Admin: 05/11/17 01:36 Dose: 75 mls/hr Sodium Chloride (Normal Saline) 1,000 mls @ 125 mls/hr IV ASDIRECTED [facility] Last Admin: 05/13/17 03:25 Dose: 125 mls/hr Magnesium Sulfate 2 gm/ Premix 50 mls @ 50 mls/hr IV ONETIME ONE Stop: 05/12/17 07:59 Last Admin: 05/12/17 08:03 Dose: 50 mls/hr Sodium Ferric Gluconat/Sucrose (250 mg/ Sodium Chloride) 120 mls @ 60 mls/hr IV ONETIME ONE Stop: 05/12/17 11:59 Last Admin: 05/12/17 09:59 Dose: 60 mls/hr Magnesium Sulfate 2 gm/ Premix 50 mls @ 25 mls/hr IV ONETIME ONE Stop: 05/13/17 09:59 Last Admin: 05/13/17 07:46 Dose: 25 mls/hr Insulin Aspart (Novolog) 0 unit SUBCUT ASDIRECTED [facility] PRN Reason: Protocol Lactulose (Cephulac) 20 gm PO ONETIME ONE Stop: 05/11/17 01:35 Last Admin: 05/11/17 01:57 Dose: 20 gm Lactulose (Cephulac) 20 gm PO TID [facility] Last Admin: 05/11/17 07:07 Dose: 20 gm Metformin HCl (Glucophage) 850 mg PO BIDMEALS [facility] Multivitamins/Minerals (Cerovite Advanced Formula Tablet) 1 tab PO BEDTIME [facility] Last Admin: 05/12/17 20:15 Dose: Not Given Pantoprazole Sodium (Protonix) 40 mg PO DAILY [facility] Stop: 05/11/17 10:00 Last Admin: 05/11/17 08:50 Dose: 40 mg Rifaximin (Xifaxan) 550 mg PO BID [facility] - Exam Quality Assessment: Reports: DVT Prophylaxis General: Reports: Alert, Cooperative, No Acute Distress HEENT: Reports: Pupils Equal, EOMI, Mucous Membr. Moist/[place] Neck: Reports: Supple Lungs: Reports: Clear to Auscultation, Normal Respiratory Effort, Decreased Breath Sounds (bases) Cardiovascular: Reports: Regular Rate, Regular Rhythm GI/Abdominal Exam: Normal Bowel Sounds, Soft, Non-Tender, Hepatomegaly, Splenomegaly, Other (round, distended) (Male) Exam: Deferred Rectal (Males) Exam: Deferred Extremities: Normal Capillary Refill, Pedal Edema (1+ bilat to LE) Neurological: Reports: No New Focal Deficit Psy/Mental Status: Reports: Alert, Normal Affect, Normal Mood *Q Meaningful Use (DIS) - VTE *Q VTE Criteria *Q: - Stroke *Q Stroke Criteria *Q: - AMI *Q AMI Criteria *Q:
[2017-05-14] MEDS ORDERED: Magnesium Oxide 400 MG Tab PO ONE (08:00)
[2017-05-14] MEDS: Rifaximin 550 MG Tab PO SCH (08:13)
[2017-05-14] MEDS: glipiZIDE 2.5 MG Tab.ER PO SCH (08:13)
[2017-05-14] MEDS: Spironolactone 25 MG Tab PO SCH (08:14)
[2017-05-14] MEDS: Lactulose Soln 10 GM/15 ML 30 ML UD Cup PO SCH (08:14)
[2017-05-14] MEDS: Magnesium Oxide 400 MG Tab PO SCH (08:18)
[2017-05-14] MEDS ORDERED: Cholecalciferol (Vitamin D3) 1,000 Unit Tab PO SCH (09:00)
[2017-05-14 14:56] VITALS: BP 120/54
== END 2017-05-14 14:45 | disposition home or self-care (01) | DRG 279 ==
LOC: JD.ED 01:13 → JD.MS 02:51
PROVIDERS: ADMIT Internal Medicine; ATTEND Internal Medicine
DX: K72.00 Acute and subacute hepatic failure without coma (principal); K72.10 Chronic hepatic failure without coma; E11.65 Type 2 diabetes mellitus with hyperglycemia; Z79.84 Long term (current) use of oral hypoglycemic drugs; K70.30 Alcoholic cirrhosis of liver without ascites; F10.21 Alcohol dependence, in remission; D64.9 Anemia, unspecified; D61.818 Other pancytopenia; E66.9 Obesity, unspecified; Z68.36 Body mass index [BMI] 36.0-36.9, adult; E80.6 Other disorders of bilirubin metabolism; E46 Unspecified protein-calorie malnutrition; Z91.14 Patient's other noncompliance with medication regimen; I11.0 Hypertensive heart disease with heart failure; I50.9 Heart failure, unspecified; K21.9 Gastro-esophageal reflux disease without esophagitis; B19.20 Unspecified viral hepatitis C without hepatic coma; Z87.891 Personal history of nicotine dependence; Z79.899 Other long term (current) drug therapy
CPT/HCPCS: 36415; 71010; 71010-26; 80048; 80053; 81001; 82040; 82140; 82306; 82607; 82746; 82962; 83036; 83540; 83735; 83880; 83921; 84439; 84443; 84466; 85025; 85610; 85730; 86140; 93005; 96360; 97161-GP; 97165-GO; 99223; 99232; 99239; 99285; 99285-25; A9270-GY; J1815-GY; J1940; J2916; J3475; J7030; J7040

== ENCOUNTER 2017-05-23 23:42 | Inpatient (IN) | payer BC ==
[2017-05-23] MEDS ORDERED: Sodium Chloride 0.9% 1,000 ML IV SCH (23:45)
[2017-05-23] MEDS ORDERED: Sodium Chloride 0.9% 10 ML Syringe FLUSH PRN (23:46)
--- NOTE | 2017-05-24 00:53 | EDM.PDOC ---
ED HPI GENERAL MEDICAL PROBLEM - General Chief Complaint: Neurological Problem Stated Complaint: [facility] Time Seen by Provider: 05/23/17 23:45 Source of Information: Reports: EMS, RN Notes Reviewed - History of Present Illness INITIAL COMMENTS - FREE TEXT/NARRATIVE: 57-year-old male has been brought in by [facility] for altered mental status and confusion. Family has not yet shown up to give more history. The EMS staff left before I could visit with them so therefore my information is quite limited at this time. We do know that he has history of quite severe liver disease. He has had prior visits and admissions for hepatic encephalopathy. On arrival to ED patient is not verbal some not able to obtain any meaningful information from him. Is not known to us when he started getting more confused or if there have been other associated sx. We do know that family did give 2 or 3 doses of lactulose this evening prior to transport. 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: Reports: EKG - Related Data Allergies Allergy/AdvReac Type Severity Reaction Status Date / Time No Known Allergies Allergy Verified 05/24/17 00:03 Home Meds: Home Meds Pantoprazole [ProTONIX] 40 mg PO ACBREAKFAST #30 tab.cr 12/08/15 [Rx] Spironolactone 50 mg PO BID 03/03/16 [History] Rifaximin [Xifaxan] 550 mg PO BID 06/13/16 [History] metFORMIN [Glucophage] 850 mg PO BID 06/13/16 [History] Magnesium Oxide 400 mg PO BID #30 tablet 04/25/17 [Rx] Cholecalciferol (Vitamin D3) [Vitamin D3] 2,000 unit PO DAILY #30 tablet [Rx] Ferrous Sulfate 325 mg PO DAILY #30 tablet 05/14/17 [Rx] Furosemide [Lasix] 40 mg PO DAILY #30 tablet 05/14/17 [Rx] Levothyroxine [Synthroid] 100 mcg PO DAILY@0700 #30 tablet 05/14/17 [Rx] Multivitamins,Therapeutic [Thera] 1 each PO BEDTIME tablet 05/14/17 [Rx] Potassium Chloride 20 meq PO DAILY #30 tablet.er 05/14/17 [Rx] Thiamine [Vitamin B-1] 100 mg PO BEDTIME #30 tablet 05/14/17 [Rx] Lactulose [Cephulac] 45 gm PO TID 05/24/17 [History] Past Medical History Cardiovascular History: Reports: Hypertension Other Cardiovascular History: UNABLE TO OBTAIN INFORMATION PT IS NOT VERBALLY RESPONSIVE AT THIS TIME Respiratory History: Reports: SOB Other Respiratory History: UNABLE TO OBTAIN INFORMATION PT IS NOT VERBALLY RESPONSIVE AT THIS TIME Gastrointestinal History: Reports: Cirrhosis, GERD, GI Bleed Other Gastrointestinal History: liver failure;stomach bleed. UNABLE TO OBTAIN INFORMATION PT IS NOT VERBALLY RESPONSIVE AT THIS TIME Genitourinary History: Reports: Other (See Below) Other Genitourinary History: UNABLE TO OBTAIN INFORMATION PT IS NOT VERBALLY RESPONSIVE AT THIS TIME Other Musculoskeletal History: UNABLE TO OBTAIN INFORMATION PT IS NOT VERBALLY RESPONSIVE AT THIS TIME Neurological History: Reports: Other (See Below) Other Neuro History: hepatic encephalopathy Psychiatric History: Reports: Addiction Other Psychiatric History: recovered alcoholic. 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 History of cellulitis to both legs. UNABLE TO OBTAIN INFORMATION PT IS NOT VERBALLY RESPONSIVE AT THIS TIME - Infectious Disease History Infectious Disease History: Reports: Hepatitis non A,B,C, Measles, MRSA - Past Surgical History Other HEENT Surgeries/Procedures: UNABLE TO OBTAIN INFORMATION PT IS NOT VERBALLY RESPONSIVE AT THIS TIME GI Surgical History: Reports: Other (See Below) Social & Family History - Family History Family Medical History: Noncontributory - Tobacco Use Smoking Status *Q: Unknown Ever Smoked Years of Tobacco use: 25 Packs/Tins Daily: 0.5 Used Tobacco, but Quit: Yes Month Tobacco Last Used: 20 years ago Second Hand Smoke Exposure: No - Caffeine Use Caffeine Use: Reports: Other Other Caffeine Use: unknown - Alcohol Use Days Per Week of Alcohol Use: 0 - Recreational Drug Use Recreational Drug Use: No Other Recreational Drug Type: UNABLE TO OBTAIN INFORMATION PT IS NOT VERBALLY RESPONSIVE AT THIS TIME - Living Situation & Occupation Living situation: Reports: , with Family Occupation: Employed [employer] GENERAL - Review of Systems Review Of Systems: Unable To Obtain - Physical Exam Exam: See Below Exam Limited By: Other (Patient is nonverbal as far as answering questions. He only verbalized wants to multiple questions asked and that was a single word, unintelligible) General Appearance: Other (Patient is noted to be somewhat "fidgety him facial twitching, slightly restless moving arms primarily slightly shifting position.) Eye Exam: Bilateral Eye: PERRL Throat/Mouth: Normal Inspection, Normal Oropharynx Head Exam: Atraumatic Neck: Supple, Other Respiratory/Chest: No Respiratory Distress (No JVD visible), Lungs Clear, Normal Breath Sounds Cardiovascular: Regular Rate, Rhythm GI/Abdominal: Soft, Non-Tender, Distended (Mild) Neuro Exam (Abbreviated): Other (Patient is not answering simple questions other than 1 verbalization but unable to understand what he tried to say) Extremities: Pedal Edema (Trace bilateral). No: Increased Warmth, Redness Skin Exam: Warm, Dry, Normal Color, Other (Patient is not visibly jaundiced) EKG INTERPRETATION EKG Date: 05/24/17 Rhythm: NSR [place]: LAD-Left [place] Deviation QRS: Normal ST-T: Normal Course - Vital Signs Last Recorded V/S: Last Vital Signs Temp 97.2 F 05/24/17 03:35 Pulse 71 05/24/17 03:35 Resp 18 05/24/17 03:35 BP 112/49 L 05/24/17 03:35 Pulse Ox 99 05/24/17 03:35 - Orders/Labs/Meds Orders: Active Orders 24 hr Category Date Time Status EKG 12 Lead [EKG Documentation Completion] [RC] STAT Care 05/23/17 23:55 Active Peripheral IV Care [RC] Q2HR Care 05/23/17 23:46 Active Sodium Chloride 0.9% [Normal Saline] 1,000 ml Med 05/23/17 23:45 Active IV ASDIRECTED Sodium Chloride 0.9% [Saline Flush] Med 05/23/17 23:46 Active 10 ml FLUSH ASDIRECTED PRN Peripheral IV Insertion Adult [OM.PC] Stat Oth 05/23/17 23:46 Ordered Medication Orders Sodium Chloride (Normal Saline) 1,000 mls @ 75 mls/hr IV ASDIRECTED DHIRAJ Last Admin: 05/24/17 00:09 Dose: 75 mls/hr Lactulose (Cephulac) 30 gm PO TID DHIRAJ Last Admin: 05/24/17 06:15 Dose: Sodium Chloride (Saline Flush) 10 ml FLUSH ASDIRECTED PRN PRN Reason: Keep Vein Open Last Admin: 05/24/17 00:09 Dose: 10 ml Labs: Laboratory Tests 05/23/17 05/23/17 05/23/17 Range/Units 23:30 23:30 23:48 WBC 2.62 L (4.23-9.07) K/mm3 RBC 3.20 L (4.63-6.08) M/mm3 Hgb 10.4 L (13.7-17.5) gm/L Hct 29.9 L (40.1-51.0) % MCV 93.4 H (79.0-92.2) fl MCH 32.5 H (25.7-32.2) pg MCHC 34.8 (32.2-35.5) g/dl RDW Std Deviation 57.3 H (35.1-43.9) fL Plt Count 45 L (163-337) K/mm3 MPV 10.1 (9.4-12.3) fl Neut % (Auto) 58.4 (34.0-67.9) % Lymph % (Auto) 29.0 (21.8-53.1) % [place] % (Auto) 11.1 (5.3-12.2) % Eos % (Auto) 1.1 (0.8-7.0) Baso % (Auto) 0.4 (0.1-1.2) % Neut # (Auto) 1.53 L (1.78-5.38) K/mm3 Lymph # (Auto) 0.76 L (1.32-3.57) K/mm3 [place] # (Auto) 0.29 L (0.30-0.82) K/mm3 Eos # (Auto) 0.03 L (0.04-0.54) K/mm3 Baso # (Auto) 0.01 (0.01-0.08) K/mm3 Manual Slide Review Abnormal smear Sodium 138 (136-145) mEq/L Potassium 4.6 (3.5-5.1) mEq/L Chloride 108 H (98-107) mEq/L Carbon Dioxide 23 (21-32) mEq/L Anion Gap 11.6 (5-15) BUN 10 (7-18) mg/dL Creatinine 1.0 (0.7-1.3) mg/dL Est Cr Clr Drug Dosing 88.38 mL/min Estimated GFR (MDRD) > 60 (>60) mL/min BUN/Creatinine Ratio 10.0 L (14-18) Glucose 216 H (74-106) mg/dL POC Glucose 181 H (70-105) mg/dL Calcium 8.7 (8.5-10.1) mg/dL Magnesium (1.8-2.4) mg/dl Total Bilirubin 2.4 H (0.2-1.0) mg/dL AST 31 (15-37) U/L ALT 30 (16-63) U/L Alkaline Phosphatase 85 (46-116) U/L Ammonia (11-32) umol/L Total Protein 7.5 (6.4-8.2) g/dl Albumin 2.1 L (3.4-5.0) g/dl Globulin 5.4 gm/dL Albumin/Globulin Ratio 0.4 L (1-2) Lipase 469 H (73-393) U/L Ethyl Alcohol (0.00) gm% 05/23/17 05/23/17 Range/Units 23:57 23:57 WBC (4.23-9.07) K/mm3 RBC (4.63-6.08) M/mm3 Hgb (13.7-17.5) gm/L Hct (40.1-51.0) % MCV (79.0-92.2) fl MCH (25.7-32.2) pg MCHC (32.2-35.5) g/dl RDW Std Deviation (35.1-43.9) fL Plt Count (163-337) K/mm3 MPV (9.4-12.3) fl Neut % (Auto) (34.0-67.9) % Lymph % (Auto) (21.8-53.1) % [place] % (Auto) (5.3-12.2) % Eos % (Auto) (0.8-7.0) Baso % (Auto) (0.1-1.2) % Neut # (Auto) (1.78-5.38) K/mm3 Lymph # (Auto) (1.32-3.57) K/mm3 [place] # (Auto) (0.30-0.82) K/mm3 Eos # (Auto) (0.04-0.54) K/mm3 Baso # (Auto) (0.01-0.08) K/mm3 Manual Slide Review Sodium (136-145) mEq/L Potassium (3.5-5.1) mEq/L Chloride (98-107) mEq/L Carbon Dioxide (21-32) mEq/L Anion Gap (5-15) BUN (7-18) mg/dL Creatinine (0.7-1.3) mg/dL Est Cr Clr Drug Dosing mL/min Estimated GFR (MDRD) (>60) mL/min BUN/Creatinine Ratio (14-18) Glucose (74-106) mg/dL POC Glucose (70-105) mg/dL Calcium (8.5-10.1) mg/dL Magnesium 1.6 L (1.8-2.4) mg/dl Total Bilirubin (0.2-1.0) mg/dL AST (15-37) U/L ALT (16-63) U/L Alkaline Phosphatase (46-116) U/L Ammonia 197 H (11-32) umol/L Total Protein (6.4-8.2) g/dl Albumin (3.4-5.0) g/dl Globulin gm/dL Albumin/Globulin Ratio (1-2) Lipase (73-393) U/L Ethyl Alcohol 0.00 (0.00) gm% Meds: Medications Generic Name Dose Route Start Last Admin Trade Name Freq PRN Reason Stop Dose Admin Sodium Chloride 1,000 mls @ 75 mls/hr 05/23/17 23:45 05/24/17 00:09 Normal Saline IV 75 mls/hr ASDIRECTED DHIRAJ Administration Lactulose 30 gm 05/24/17 03:00 05/24/17 06:15 Cephulac PO Not Given TID DHIRAJ Sodium Chloride 10 ml 05/23/17 23:46 05/24/17 00:09 Saline Flush FLUSH 10 ml ASDIRECTED PRN Administration Keep Vein Open Discontinued Medications Generic Name Dose Route Start Last Admin Trade Name Freq PRN Reason Stop Dose Admin Magnesium Sulfate 2 gm/ Premix 50 mls @ 25 mls/hr 05/24/17 01:19 05/24/17 01: 50 IV 05/24/17 03:18 25 mls/hr ONETIME ONE Administration - Re-Assessments/Exams Free Text/Narrative Re-Assessment/Exam: 05/24/17 01:02. Head CT does not show any acute findings. Serum ammonia quite elevated as expected, 197. bilirubin 2.4. Family still not here to give any further history but do suspect his symptoms have progressed over multiple days to his current state of quite severe altered mental status. He was last admitted May 12,discharge home improved condition 2 days later. 05/24/17 01:24. MCG shows that he does meet criteria for inpatient status as expected. He was full code on last admission. There is no family present to discuss code status so will continue at full code status for now, hopefully that can be addressed this admission. Have written bridge orders for admission. Will give 2 gram Mg sulfate IV over 2 hrs. Have also written for Embedded Software Engineer consult. Departure - Departure Time of Disposition: 01:16 Disposition: Admitted As Inpatient 65 Condition: Serious Clinical Impression: Hepatic encephalopathy - Discharge Information ED Communication - Discussed Case With (1) Discussed Case With (1): Admitting Provider (Dr Nuno, decision to admit at about 01:22) - My Orders Last 24 Hours: My Active Orders 05/23/17 23:45 Sodium Chloride 0.9% [Normal Saline] 1,000 ml IV ASDIRECTED 05/23/17 23:46 Peripheral IV Care [RC] Q2HR Sodium Chloride 0.9% [Saline Flush] 10 ml FLUSH ASDIRECTED PRN Peripheral IV Insertion Adult [OM.PC] Stat 05/23/17 23:55 EKG 12 Lead [EKG Documentation Completion] [RC] STAT - Assessment/Plan Last 24 Hours: My Active Orders 05/23/17 23:45 Sodium Chloride 0.9% [Normal Saline] 1,000 ml IV ASDIRECTED 05/23/17 23:46 Peripheral IV Care [RC] Q2HR Sodium Chloride 0.9% [Saline Flush] 10 ml FLUSH ASDIRECTED PRN Peripheral IV Insertion Adult [OM.PC] Stat 05/23/17 23:55 EKG 12 Lead [EKG Documentation Completion] [RC] STAT
[2017-05-24] MEDS ORDERED: Magnesium Sulfate/Water 2 GM in Premix Bag 1 BAG IV ONE (01:19)
[2017-05-24] MEDS ORDERED: Lactulose Soln 10 GM/15 ML 30 ML UD Cup PO SCH (03:00)
--- NOTE | 2017-05-24 06:59 | CT ---
Head CT Technique: Multiple axial sections through the brain were obtained. Intravenous contrast was not utilized. Comparison: Prior head CT study of 04/23/17. Ventricles along with basal cisterns and sulci over the convexities are within normal limits for the patient's age. No abnormal parenchymal densities are seen. No evidence of intracranial hemorrhage. No midline shift or mass effect is seen. Bone window settings were reviewed which show the visualized sinuses to appear clear. No acute calvarial abnormality is identified. Impression: 1. Nothing acute identified on noncontrast head CT study. No significant change is seen from prior head CT exam. Diagnostic code #1 Agree with preliminary report issued by [facility] ([facility] preliminary report dictated on 05/24/17, 1:44 AM Central Time)
[2017-05-24] MEDS ORDERED: Spironolactone 25 MG Tab PO SCH (07:45)
[2017-05-24] MEDS ORDERED: Potassium Chloride 20 MEQ Tab.ER PO SCH (09:00)
--- NOTE | 2017-05-24 09:06 | PCM.HP ---
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 Last admission was 12 days ago with significant improvements with restarting his lactulose home dosing, return to usual baseline mental status with discharge 2 days later. He was to have follow up with GI, Dr. Hernandez and did not follow up with this recommendation. He is not sure the last time he has seen his GI specialist. He is s/p TIPS procedure a few years ago and has not had follow up with this. I talked to him at length last admission regarding follow up with GI, he was adamant that he would follow up after discharge last time, 10 days ago. He was brought in by ambulance yesterday with altered mental status, sedated to lethargic, noncommunicative on arrival to ED. Ammonia level was found to be 197 which by chart review is the highest it has been since his admissions since February of this year. Lowest ammonia level had been 41 in February of this year. He also has Hx of type 2 DM. Last A1C 6.9 on 05/11/17. Hypothyroidism with last TSH 5.59, normal FTF at 1.35 on 05/11/17. Pancytopenia likely due to ESLD which is stable today, improved from last admission; hgb ranges from 8.4-10.4, platelets range from 35-49; also iron deficient with last iron studies done on , iron level of 59, is on supplemental oral iron. Hospitalist service is consulted for admission for hepatic encephalopathy. He is full code status. Onset of Symptoms: Reports: Gradual, Unknown/Unsure (days to ? weeks) - Related Data Allergies/Adverse Reactions: Allergies Allergy/AdvReac Type Severity Reaction Status Date / Time No Known Allergies Allergy Verified 05/24/17 00:03 Home Medications: Home Meds Pantoprazole [ProTONIX] 40 mg PO ACBREAKFAST #30 tab.cr 12/08/15 [Rx] Spironolactone 50 mg PO BID 03/03/16 [History] Rifaximin [Xifaxan] 550 mg PO BID 06/13/16 [History] metFORMIN [Glucophage] 850 mg PO BID 06/13/16 [History] Magnesium Oxide 400 mg PO BID #30 tablet 04/25/17 [Rx] Cholecalciferol (Vitamin D3) [Vitamin D3] 2,000 unit PO DAILY #30 tablet [Rx] Ferrous Sulfate 325 mg PO DAILY #30 tablet 05/14/17 [Rx] Furosemide [Lasix] 40 mg PO DAILY #30 tablet 05/14/17 [Rx] Levothyroxine [Synthroid] 100 mcg PO DAILY@0700 #30 tablet 05/14/17 [Rx] Multivitamins,Therapeutic [Thera] 1 each PO BEDTIME tablet 05/14/17 [Rx] Potassium Chloride 20 meq PO DAILY #30 tablet.er 05/14/17 [Rx] Thiamine [Vitamin B-1] 100 mg PO BEDTIME #30 tablet 05/14/17 [Rx] Lactulose [Cephulac] 45 gm PO TID 05/24/17 [History] Past Medical History Cardiovascular History: Reports: Hypertension Other Cardiovascular History: UNABLE TO OBTAIN INFORMATION PT IS NOT VERBALLY RESPONSIVE AT THIS TIME Respiratory History: Reports: SOB Other Respiratory History: UNABLE TO OBTAIN INFORMATION PT IS NOT VERBALLY RESPONSIVE AT THIS TIME Gastrointestinal History: Reports: Cirrhosis, GERD, GI Bleed Other Gastrointestinal History: liver failure;stomach bleed. UNABLE TO OBTAIN INFORMATION PT IS NOT VERBALLY RESPONSIVE AT THIS TIME Genitourinary History: Reports: Other (See Below) Other Genitourinary History: UNABLE TO OBTAIN INFORMATION PT IS NOT VERBALLY RESPONSIVE AT THIS TIME Other Musculoskeletal History: UNABLE TO OBTAIN INFORMATION PT IS NOT VERBALLY RESPONSIVE AT THIS TIME Neurological History: Reports: Other (See Below) Other Neuro History: hepatic encephalopathy Psychiatric History: Reports: Addiction Other Psychiatric History: recovered alcoholic. 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 History of cellulitis to both legs. UNABLE TO OBTAIN INFORMATION PT IS NOT VERBALLY RESPONSIVE AT THIS TIME - Infectious Disease History Infectious Disease History: Reports: Hepatitis non A,B,C, Measles, MRSA - Past Surgical History Other HEENT Surgeries/Procedures: UNABLE TO OBTAIN INFORMATION PT IS NOT VERBALLY RESPONSIVE AT THIS TIME GI Surgical History: Reports: Other (See Below) Social & Family History - Family History Family Medical History: Noncontributory - Tobacco Use Smoking Status *Q: Unknown Ever Smoked Years of Tobacco use: 25 Packs/Tins Daily: 0.5 Used Tobacco, but Quit: Yes Month Tobacco Last Used: 20 years ago Second Hand Smoke Exposure: No - Caffeine Use Caffeine Use: Reports: Other Other Caffeine Use: unknown - Alcohol Use Days Per Week of Alcohol Use: 0 - Recreational Drug Use Recreational Drug Use: No Other Recreational Drug Type: UNABLE TO OBTAIN INFORMATION PT IS NOT VERBALLY RESPONSIVE AT THIS TIME - Living Situation & Occupation Living situation: Reports: , with Family Occupation: Employed H&P Review of Systems - Review of Systems: Review Of Systems: See Below General: Reports: Malaise, Weakness, Fatigue HEENT: Reports: No Symptoms. Denies: Headaches Pulmonary: Reports: Shortness of Breath (occasional) Cardiovascular: Reports: No Symptoms, Dyspnea on Exertion (occasional). Denies : Chest Pain, Palpitations Gastrointestinal: Reports: Abdominal Pain (mild and intermittent), Distension ( notes "belly is bigger" than usual), Vomiting (thinks he may have vomited 2 days ago but can't remember). Denies: Black Stool, Bloody Stool, Constipation, Diarrhea, Hematemesis, Hematochezia, Melena, Nausea Genitourinary: Reports: No Symptoms Psychiatric: Reports: Confusion Neurological: Reports: Confusion Hematologic/Lymphatic: Reports: Anemia Review of Systems Comment:: Difficult to obtain due to lethargy Exam - Exam Exam: See Below - Vital Signs Vital Signs: Last Vital Signs Temp 97.2 F 05/24/17 03:35 Pulse 71 05/24/17 03:35 Resp 18 05/24/17 03:35 BP 112/49 L 05/24/17 03:35 Pulse Ox 99 05/24/17 03:35 Weight: 116.165 kg - Exam Quality Assessment: DVT Prophylaxis (teds/SCD's) General: Alert, Cooperative, Lethargic, Obtunded. No: Oriented (knows his name , [facility] [place] unsure of day, month or year) HEENT: Scleral Icterus (mild) Neck: Supple Lungs: Normal Respiratory Effort, Decreased Breath Sounds (mid to lower lobes) Cardiovascular: Regular Rate, Regular Rhythm GI/Abdominal Exam: Normal Bowel Sounds, Distended (ascites present), Hepatomegaly, Splenomegaly (Male) Exam: Deferred Rectal (Males) Exam: Deferred Extremities: Pedal Edema (1+ edema to LE bilat, pedal to mid shins) Peripheral Pulses: 1+: Dorsalis Pedis (L), Dorsalis Pedis (R) Neurological: Strength Equal Bilateral. No: Normal Speech (slurred and at times unable to finish word or sentence) Neuro Extensive - Mental Status: Alert, Disorientation to Time, Memory Loss- Recent Events (unsure what day he last remembers- initially states "saturday" is last day he remembers), Slow Response to Commands. No: Oriented x3, Normal Cognition, Memory Intact, Disorientation to Person, Disorientation to Place - Patient Data Lab Results Last 24 hrs: Laboratory Results - last 24 hr 05/24/17 Range/Units 03:32 POC Glucose 164 H (70-105) mg/dL Result Diagrams: 05/24/17 09:58 05/23/17 23:30 *Q Meaningful Use (ADM) - VTE *Q VTE Criteria *Q: - Stroke *Q Stroke Criteria *Q: - AMI *Q AMI Criteria *Q: - Problem List (1) Hepatic encephalopathy SNOMED Code(s): 31366680 ICD Code: K72.90 - HEPATIC FAILURE, UNSPECIFIED WITHOUT COMA Status: Acute Priority: High Current Visit: Yes Problem Details: - 2/2 Medical Non- compliance: admits to not taking lactulose (2) Cirrhosis of liver with ascites SNOMED Code(s): 27594917 ICD Code: K74.60 - UNSPECIFIED CIRRHOSIS OF LIVER Status: Chronic Priority: Medium Current Visit: Yes QualifierTitle: Hepatic cirrhosis type: unspecified hepatic cirrhosis Qualified Code(s): K74.60 - Unspecified cirrhosis of liver (3) Pancytopenia, acquired SNOMED Code(s): 9641779 ICD Code: D61.818 - OTHER PANCYTOPENIA Status: Chronic Priority: High Current Visit: Yes (4) S/P TIPS (transjugular intrahepatic portosystemic shunt) SNOMED Code(s): 702804302 ICD Code: Z95.828 - PRESENCE OF OTHER VASCULAR IMPLANTS AND GRAFTS Status: Chronic Priority: Medium Current Visit: Yes (5) Diabetes mellitus type 2 SNOMED Code(s): 80601661 ICD Code: E11.9 - TYPE 2 DIABETES MELLITUS WITHOUT COMPLICATIONS Status: Chronic Priority: Medium Current Visit: Yes (6) Iron deficiency anemia SNOMED Code(s): 57486888 ICD Code: D50.9 - IRON DEFICIENCY ANEMIA, UNSPECIFIED Status: Chronic Priority: Medium Current Visit: Yes QualifierTitle: Iron deficiency anemia type: unspecified iron deficiency Qualified Code(s): D50.9 - Iron deficiency anemia, unspecified (7) Hypomagnesemia SNOMED Code(s): 776066407 ICD Code: E83.42 - HYPOMAGNESEMIA Status: Acute Priority: High Current Visit: Yes Problem List Initiated/Reviewed/Updated: Yes Orders Last 24hrs: Active Orders 24 hr Category Date Time Status Antiembolic Devices [RC] PER UNIT ROUTINE Care 05/24/17 08:57 Ordered Bedrest [RC] ASDIRECTED Care 05/24/17 02:52 Active IS (RT) [RT Incentive Spirometry] [RC] Q2HWA Care 05/24/17 09:01 Ordered Consult to Him Clerk [CONS] Routine Cons 05/24/17 08:58 Ordered Consult to Plan Examiner [CONS] Routine Cons 05/24/17 02:56 Active OT Evaluation and Treatment [CONS] Routine Cons 05/24/17 08:57 Ordered PT Evaluation and Treatment [CONS] Routine Cons 05/24/17 08:57 Ordered Clear Liquid Diet [DIET] Diet 05/24/17 Breakfast Active AMMONIA VENOUS [CHEM] AM Lab 05/25/17 05:11 Ordered C-REACTIVE PROTEIN [CHEM] AM Lab 05/25/17 05:11 Ordered C-REACTIVE PROTEIN [CHEM] AM Lab 05/26/17 05:11 Ordered C-REACTIVE PROTEIN [CHEM] AM Lab 05/27/17 05:11 Ordered C-REACTIVE PROTEIN [CHEM] AM Lab 05/28/17 05:11 Ordered CBC WITH AUTO DIFF [HEME] AM Lab 05/25/17 05:11 Ordered CBC WITH AUTO DIFF [HEME] AM Lab 05/26/17 05:11 Ordered CBC WITH AUTO DIFF [HEME] AM Lab 05/27/17 05:11 Ordered CBC WITH AUTO DIFF [HEME] AM Lab 05/28/17 05:11 Ordered COMPREHENSIVE METABOLIC PN,CMP [CHEM] AM Lab 05/25/17 05:11 Ordered COMPREHENSIVE METABOLIC PN,CMP [CHEM] AM Lab 05/26/17 05:11 Ordered COMPREHENSIVE METABOLIC PN,CMP [CHEM] AM Lab 05/27/17 05:11 Ordered COMPREHENSIVE METABOLIC PN,CMP [CHEM] AM Lab 05/28/17 05:11 Ordered MAGNESIUM [CHEM] AM Lab 05/25/17 05:11 Ordered MAGNESIUM [CHEM] AM Lab 05/26/17 05:11 Ordered MAGNESIUM [CHEM] AM Lab 05/27/17 05:11 Ordered MAGNESIUM [CHEM] AM Lab 05/28/17 05:11 Ordered Cholecalciferol (Vitamin D3) [Vitamin D3] Med 05/24/17 09:00 Active 2,000 units PO DAILY Erythromycin Base [Jed-Tab] Med 05/24/17 08:00 Active 250 mg PO Q8H Ferrous Sulfate Med 05/24/17 09:00 Active 325 mg PO DAILY Furosemide [Lasix] Med 05/24/17 09:00 Active 40 mg PO DAILY Lactulose [Cephulac] Med 05/24/17 09:00 Active 45 gm PO TID Levothyroxine [Synthroid] Med 05/24/17 07:00 Active 100 mcg PO DAILY@0700 Magnesium Oxide Med 05/24/17 09:00 Active 400 mg PO BID Multivitamins,Therapeutic [Thera] Med 05/24/17 21:00 Active 1 each PO BEDTIME Pantoprazole [ProTONIX] Med 05/24/17 07:45 Active 40 mg PO ACBREAKFAST Rifaximin [Xifaxan] Med 05/24/17 09:00 Active 550 mg PO BID Spironolactone [Aldactone] Med 05/24/17 09:00 Ordered 100 mg PO BID Thiamine [Vitamin B-1] Med 05/24/17 21:00 Active 100 mg PO BEDTIME metFORMIN [Glucophage] Med 05/24/17 07:45 Active 850 mg PO BIDMEALS Sequential Compression Device [OM.PC] Routine Oth 05/24/17 08:57 Ordered CYNTHIA Hose [Antiembolic Hose] [OM.PC] Routine Oth 05/24/17 08:57 Ordered Resuscitation Status Routine Resus Stat 05/24/17 02:52 Ordered Medication Orders Cholecalciferol (Vitamin D3) 2,000 units PO DAILY DHIRAJ Erythromycin (Jed-Tab) 250 mg PO Q8H DHIRAJ Ferrous Sulfate (Ferrous Sulfate) 325 mg PO DAILY DHIRAJ Furosemide (Lasix) 40 mg PO DAILY DHIRAJ Sodium Chloride (Normal Saline) 1,000 mls @ 75 mls/hr IV ASDIRECTED DHIRAJ Last Admin: 05/24/17 00:09 Dose: 75 mls/hr Lactulose (Cephulac) 45 gm PO TID DHIRAJ Levothyroxine Sodium (Synthroid) 100 mcg PO DAILY@0700 DHIRAJ Magnesium Oxide (Magnesium Oxide) 400 mg PO BID DHIRAJ Metformin HCl (Glucophage) 850 mg PO BIDMEALS [facility] Multivitamins (Thera) 1 each PO BEDTIME DHIRAJ Pantoprazole Sodium (Protonix) 40 mg PO ACBREAKFAST DHIRAJ Rifaximin (Xifaxan) 550 mg PO BID DHIRAJ Sodium Chloride (Saline Flush) 10 ml FLUSH ASDIRECTED PRN PRN Reason: Keep Vein Open Last Admin: 05/24/17 00:09 Dose: 10 ml Spironolactone (Aldactone) 100 mg PO BID DHIRAJ Thiamine HCl (Vitamin B-1) 100 mg PO BEDTIME [facility] Assessment/Plan Comment:: I/P: Hepatic Encephalopathy due to elevated ammonia levels ESLD/Cirrhosis of the liver -Ammonia level 197, ascites on physical exam today -Medical noncompliance with not taking lactulose strongly suspected; in the past when given as prescribed when in hospital patient improves dramatically -S/P TIPS procedure years ago with minimal to no GI follow up as patient has been noncompliant with follow up--unsure when he last saw Dr. Hernandez; have made multiple attemps with multiple admissions to schedule followups but patient does not show for appointment. After last discharge, was recommended to follow up- he did not. -Coagulopathy- INR 1.27 today, d/t ESLD, not on coumadin -Lactulose 45mg PO TID -Add Erythromycin Q8H -Increase spironolactone to 100m BID Hypomagnesemia- -replace and monitor daily Chronic: -Pancytopenia- due to ESLD as above- stable- monitor with dialy labs -Anemia improved since last admission with iron supplementation -Iron deficiency with iron level low at 59 on 05/11/17, B12 and folate WNL at that time -Hx of esophageal varices -Type 2 DM- last A1C 6.9 on 05/11/17- takes metformin 875mg BID at home- Accuchecks AC/HS and SSI during hospital stay -Hypothyroidism- Last TSH 5.59 with normal FT$ on 05/11/17, cont current meds -Hypovitaminosis D - last Vit D level 17 on 05/11/17, cont current supplementation Other: GI/DVT prophylax- no lovenox as thrombocytopenia, use Teds and SCD's Him Clerk consult for low protein diet, ESLD, DM PT/OT for weakness CM/SW for assist with DC planning, readmissions, medical noncompliance with medications, need for further assistance such as assisted living or medication assistance as this is recurrent problem pointing at medical noncompliance with not taking medications correctly and not having follow up with GI for status on ESLD. Spent 30 minutes with patient today; he was unable to follow conversation or complete full sentences or train of thought as of later this morning. Patient is Full Code status. <Shannan Nuno M - Last Filed: 05/25/17 13:58> H&P History of Present Illness - General Admit Problem/Dx: Admission Diagnosis/Problem Admission Diagnosis/Problem Hepatic encephalopathy Exam - Vital Signs Vital Signs: Last Vital Signs Temp 36.4 C 05/25/17 11:23 Pulse 79 05/25/17 11:23 Resp 14 05/25/17 11:23 BP 109/61 05/25/17 11:23 Pulse Ox 100 05/25/17 11:23 - Patient Data Lab Results Last 24 hrs: Laboratory Results - last 24 hr 05/24/17 05/24/17 05/24/17 Range/Units 15:20 17:39 21:36 WBC (4.23-9.07) K/mm3 RBC (4.63-6.08) M/mm3 Hgb (13.7-17.5) gm/L Hct (40.1-51.0) % MCV (79.0-92.2) fl MCH (25.7-32.2) pg MCHC (32.2-35.5) g/dl RDW Std Deviation (35.1-43.9) fL Plt Count (163-337) K/mm3 MPV (9.4-12.3) fl Neut % (Auto) (34.0-67.9) % Lymph % (Auto) (21.8-53.1) % [place] % (Auto) (5.3-12.2) % Eos % (Auto) (0.8-7.0) Baso % (Auto) (0.1-1.2) % Neut # (Auto) (1.78-5.38) K/mm3 Lymph # (Auto) (1.32-3.57) K/mm3 [place] # (Auto) (0.30-0.82) K/mm3 Eos # (Auto) (0.04-0.54) K/mm3 Baso # (Auto) (0.01-0.08) K/mm3 Manual Slide Review Sodium (136-145) mEq/L Potassium (3.5-5.1) mEq/L Chloride (98-107) mEq/L Carbon Dioxide (21-32) mEq/L Anion Gap (5-15) BUN (7-18) mg/dL Creatinine (0.7-1.3) mg/dL Est Cr Clr Drug Dosing mL/min Estimated GFR (MDRD) (>60) mL/min BUN/Creatinine Ratio (14-18) Glucose (74-106) mg/dL POC Glucose 262 H 155 H (70-105) mg/dL Calcium (8.5-10.1) mg/dL Magnesium (1.8-2.4) mg/dl Total Bilirubin (0.2-1.0) mg/dL AST (15-37) U/L ALT (16-63) U/L Alkaline Phosphatase (46-116) U/L Ammonia (11-32) umol/L C-Reactive Protein (<1.0) mg/dL Total Protein (6.4-8.2) g/dl Albumin (3.4-5.0) g/dl Globulin gm/dL Albumin/Globulin Ratio (1-2) Urine Color Yellow (Yellow) Urine Appearance Clear (Clear) Urine pH 6.0 (5.0-8.0) Ur Specific [place] > or = 1.030 (1.005-1.030) Urine Protein Negative (Negative) Urine Glucose (UA) 2+ H (Negative) Urine Ketones Negative (Negative) Urine Occult Blood 1+ H (Negative) Urine Nitrite Negative (Negative) Urine Bilirubin Negative (Negative) Urine Urobilinogen 4.0 H (0.2-1.0) Ur Leukocyte Esterase Negative (Negative) Urine RBC 5-10 H (0-5) /hpf Urine WBC 0-5 (0-5) /hpf Ur Epithelial Cells 10-20 H (0-5) /hpf Urine Bacteria Few (FEW) /hpf Urine Mucus Not seen (FEW) /hpf 05/25/17 05/25/17 05/25/17 Range/Units 04:40 04:40 04:40 WBC 2.68 L (4.23-9.07) K/mm3 RBC 2.92 L (4.63-6.08) M/mm3 Hgb 9.6 L (13.7-17.5) gm/L Hct 27.6 L (40.1-51.0) % MCV 94.5 H (79.0-92.2) fl MCH 32.9 H (25.7-32.2) pg MCHC 34.8 (32.2-35.5) g/dl RDW Std Deviation 57.7 H (35.1-43.9) fL Plt Count 35 L (163-337) K/mm3 MPV 9.6 (9.4-12.3) fl Neut % (Auto) 53.3 (34.0-67.9) % Lymph % (Auto) 31.0 (21.8-53.1) % [place] % (Auto) 12.7 H (5.3-12.2) % Eos % (Auto) 2.6 (0.8-7.0) Baso % (Auto) 0.4 (0.1-1.2) % Neut # (Auto) 1.43 L (1.78-5.38) K/mm3 Lymph # (Auto) 0.83 L (1.32-3.57) K/mm3 [place] # (Auto) 0.34 (0.30-0.82) K/mm3 Eos # (Auto) 0.07 (0.04-0.54) K/mm3 Baso # (Auto) 0.01 (0.01-0.08) K/mm3 Manual Slide Review Abnormal smear Sodium 138 (136-145) mEq/L Potassium 4.0 (3.5-5.1) mEq/L Chloride 109 H (98-107) mEq/L Carbon Dioxide 20 L (21-32) mEq/L Anion Gap 13.0 (5-15) BUN 9 (7-18) mg/dL Creatinine 0.9 (0.7-1.3) mg/dL Est Cr Clr Drug Dosing 98.20 mL/min Estimated GFR (MDRD) > 60 (>60) mL/min BUN/Creatinine Ratio 10.0 L (14-18) Glucose 176 H (74-106) mg/dL POC Glucose (70-105) mg/dL Calcium 8.5 (8.5-10.1) mg/dL Magnesium 1.5 L (1.8-2.4) mg/dl Total Bilirubin 2.2 H (0.2-1.0) mg/dL AST 29 (15-37) U/L ALT 25 (16-63) U/L Alkaline Phosphatase 74 (46-116) U/L Ammonia 73 H (11-32) umol/L C-Reactive Protein 0.3 (<1.0) mg/dL Total Protein 6.6 (6.4-8.2) g/dl Albumin 1.8 L (3.4-5.0) g/dl Globulin 4.8 gm/dL Albumin/Globulin Ratio 0.4 L (1-2) Urine Color (Yellow) Urine Appearance (Clear) Urine pH (5.0-8.0) Ur Specific [place] (1.005-1.030) Urine Protein (Negative) Urine Glucose (UA) (Negative) Urine Ketones (Negative) Urine Occult Blood (Negative) Urine Nitrite (Negative) Urine Bilirubin (Negative) Urine Urobilinogen (0.2-1.0) Ur Leukocyte Esterase (Negative) Urine RBC (0-5) /hpf Urine WBC (0-5) /hpf Ur Epithelial Cells (0-5) /hpf Urine Bacteria (FEW) /hpf Urine Mucus (FEW) /hpf 05/25/17 05/25/17 Range/Units 06:38 12:06 WBC (4.23-9.07) K/mm3 RBC (4.63-6.08) M/mm3 Hgb (13.7-17.5) gm/L Hct (40.1-51.0) % MCV (79.0-92.2) fl MCH (25.7-32.2) pg MCHC (32.2-35.5) g/dl RDW Std Deviation (35.1-43.9) fL Plt Count (163-337) K/mm3 MPV (9.4-12.3) fl Neut % (Auto) (34.0-67.9) % Lymph % (Auto) (21.8-53.1) % [place] % (Auto) (5.3-12.2) % Eos % (Auto) (0.8-7.0) Baso % (Auto) (0.1-1.2) % Neut # (Auto) (1.78-5.38) K/mm3 Lymph # (Auto) (1.32-3.57) K/mm3 [place] # (Auto) (0.30-0.82) K/mm3 Eos # (Auto) (0.04-0.54) K/mm3 Baso # (Auto) (0.01-0.08) K/mm3 Manual Slide Review Sodium (136-145) mEq/L Potassium (3.5-5.1) mEq/L Chloride (98-107) mEq/L Carbon Dioxide (21-32) mEq/L Anion Gap (5-15) BUN (7-18) mg/dL Creatinine (0.7-1.3) mg/dL Est Cr Clr Drug Dosing mL/min Estimated GFR (MDRD) (>60) mL/min BUN/Creatinine Ratio (14-18) Glucose (74-106) mg/dL POC Glucose 177 H 281 H (70-105) mg/dL Calcium (8.5-10.1) mg/dL Magnesium (1.8-2.4) mg/dl Total Bilirubin (0.2-1.0) mg/dL AST (15-37) U/L ALT (16-63) U/L Alkaline Phosphatase (46-116) U/L Ammonia (11-32) umol/L C-Reactive Protein (<1.0) mg/dL Total Protein (6.4-8.2) g/dl Albumin (3.4-5.0) g/dl Globulin gm/dL Albumin/Globulin Ratio (1-2) Urine Color (Yellow) Urine Appearance (Clear) Urine pH (5.0-8.0) Ur Specific [place] (1.005-1.030) Urine Protein (Negative) Urine Glucose (UA) (Negative) Urine Ketones (Negative) Urine Occult Blood (Negative) Urine Nitrite (Negative) Urine Bilirubin (Negative) Urine Urobilinogen (0.2-1.0) Ur Leukocyte Esterase (Negative) Urine RBC (0-5) /hpf Urine WBC (0-5) /hpf Ur Epithelial Cells (0-5) /hpf Urine Bacteria (FEW) /hpf Urine Mucus (FEW) /hpf Result Diagrams: 05/25/17 04:40 05/25/17 04:40 *Q Meaningful Use (ADM) - VTE *Q VTE Criteria *Q: - Stroke *Q Stroke Criteria *Q: - AMI *Q AMI Criteria *Q: Orders Last 24hrs: Active Orders 24 hr Category Date Time Status Soft Diet [DIET] Diet 05/24/17 Dinner Active C-REACTIVE PROTEIN [CHEM] AM Lab 05/26/17 05:11 Ordered C-REACTIVE PROTEIN [CHEM] AM Lab 05/27/17 05:11 Ordered C-REACTIVE PROTEIN [CHEM] AM Lab 05/28/17 05:11 Ordered CBC WITH AUTO DIFF [HEME] AM Lab 05/26/17 05:11 Ordered CBC WITH AUTO DIFF [HEME] AM Lab 05/27/17 05:11 Ordered CBC WITH AUTO DIFF [HEME] AM Lab 05/28/17 05:11 Ordered COMPREHENSIVE METABOLIC PN,CMP [CHEM] AM Lab 05/26/17 05:11 Ordered COMPREHENSIVE METABOLIC PN,CMP [CHEM] AM Lab 05/27/17 05:11 Ordered COMPREHENSIVE METABOLIC PN,CMP [CHEM] AM Lab 05/28/17 05:11 Ordered MAGNESIUM [CHEM] AM Lab 05/26/17 05:11 Ordered MAGNESIUM [CHEM] AM Lab 05/27/17 05:11 Ordered MAGNESIUM [CHEM] AM Lab 05/28/17 05:11 Ordered Magnesium Sulfate/Water [Magnesium Sulfate 4 GM in Med 05/25/17 13:56 Ordered Water 100 ML] 4 gm Premix Bag 1 bag IV ONETIME Multivitamins,Therapeutic [Thera] Med 05/24/17 21:00 Active 1 each PO BEDTIME Thiamine [Vitamin B-1] Med 05/24/17 21:00 Active 100 mg PO BEDTIME metFORMIN [Glucophage] Med 05/24/17 17:00 Active 1,000 mg PO BIDMEALS Medication Orders Cholecalciferol (Vitamin D3) 2,000 units PO DAILY [facility] Last Admin: 05/25/17 09:55 Dose: 2,000 units Admin: 05/24/17 10:59 Dose: 2,000 units Dextrose/Water (Dextrose 50% In Water) 50 ml IVPUSH ASDIRECTED PRN PRN Reason: Hypoglycemia Erythromycin (Jed-Tab) 250 mg PO Q8H [facility] Last Admin: 05/25/17 09:56 Dose: 250 mg Admin: 05/25/17 01:12 Dose: 250 mg Admin: 05/24/17 18:15 Dose: 250 mg Admin: 05/24/17 11:17 Dose: 250 mg Ferrous Sulfate (Ferrous Sulfate) 325 mg PO DAILY [facility] Last Admin: 05/25/17 09:55 Dose: 325 mg Admin: 05/24/17 11:00 Dose: 325 mg Furosemide (Lasix) 40 mg PO DAILY [facility] Last Admin: 05/25/17 09:55 Dose: 40 mg Admin: 05/24/17 10:59 Dose: 40 mg Insulin Aspart (Novolog) 0 unit SUBCUT QIDACANDBED [facility] PRN Reason: Protocol Last Admin: 05/25/17 12:08 Dose: 3 units Admin: 05/25/17 09:56 Dose: 1 units Admin: 05/24/17 21:39 Dose: 1 units Admin: 05/24/17 18:15 Dose: 3 units Admin: 05/24/17 13:46 Dose: 3 units Lactulose (Cephulac) 45 gm PO TID [facility] Last Admin: 05/25/17 09:56 Dose: 45 gm Admin: 05/24/17 21:32 Dose: 45 gm Admin: 05/24/17 15:00 Dose: 45 gm Admin: 05/24/17 10:58 Dose: 45 gm Levothyroxine Sodium (Synthroid) 100 mcg PO DAILY@0700 [facility] Last Admin: 05/25/17 06:38 Dose: 100 mcg Admin: 05/24/17 11:01 Dose: 100 mcg Magnesium Oxide (Magnesium Oxide) 400 mg PO BID [facility] Last Admin: 05/25/17 09:56 Dose: 400 mg Admin: 05/24/17 21:32 Dose: 400 mg Admin: 05/24/17 10:59 Dose: 400 mg Metformin HCl (Glucophage) 1,000 mg PO BIDMEALS [facility] Last Admin: 05/25/17 06:40 Dose: 1,000 mg Admin: 05/24/17 18:15 Dose: 1,000 mg Multivitamins (Thera) 1 each PO BEDTIME [facility] Last Admin: 05/24/17 21:31 Dose: 1 each Pantoprazole Sodium (Protonix) 40 mg PO ACBREAKFAST [facility] Last Admin: 05/25/17 06:40 Dose: 40 mg Admin: 05/24/17 10:59 Dose: 40 mg Rifaximin (Xifaxan) 550 mg PO BID [facility] Last Admin: 05/25/17 09:55 Dose: 550 mg Admin: 05/24/17 21:32 Dose: 550 mg Admin: 05/24/17 11:00 Dose: 550 mg Sodium Chloride (Saline Flush) 10 ml FLUSH ASDIRECTED PRN PRN Reason: Keep Vein Open Last Admin: 05/24/17 00:09 Dose: 10 ml Spironolactone (Aldactone) 100 mg PO BID [facility] Last Admin: 05/25/17 09:56 Dose: 100 mg Admin: 05/24/17 21:32 Dose: 100 mg Admin: 05/24/17 10:59 Dose: 100 mg Thiamine HCl (Vitamin B-1) 100 mg PO BEDTIME [facility] Last Admin: 05/24/17 21:31 Dose: 100 mg Assessment/Plan Comment:: Agrre with plan of care, DC likely 05/27.
[2017-05-24] MEDS: Lactulose Soln 10 GM/15 ML 30 ML UD Cup PO SCH ×3 (10:58→21:32)
[2017-05-24] MEDS: Magnesium Oxide 400 MG Tab PO SCH ×2 (10:59→21:32)
[2017-05-24] MEDS: Cholecalciferol (Vitamin D3) 1,000 Unit Tab PO SCH (10:59)
[2017-05-24] MEDS: Spironolactone 100 MG Tab PO SCH ×2 (10:59→21:32)
[2017-05-24] MEDS: Furosemide 40 MG Tab PO SCH (10:59)
[2017-05-24] MEDS: Pantoprazole 40 MG Tab.CR PO SCH (10:59)
[2017-05-24] MEDS: Rifaximin 550 MG Tab PO SCH ×2 (11:00→21:32)
[2017-05-24] MEDS: Ferrous Sulfate 325 MG Tab PO SCH (11:00)
[2017-05-24] MEDS: Levothyroxine 100 MCG Tab PO SCH (11:01)
[2017-05-24] MEDS ORDERED: 50% Dextrose in Water 50 ML Syringe IVPUSH PRN (12:29)
[2017-05-24] MEDS: Insulin Aspart 100 Units/ML 3 ML Pen SUBCUT SCH ×3 (13:46→21:39)
[2017-05-24] MEDS: metFORMIN 500 MG Tab PO SCH (18:15)
[2017-05-24] MEDS: Thiamine 100 MG Tab PO SCH (21:31)
[2017-05-24] MEDS: Multivitamins,Therapeutic Tab PO SCH (21:31)
[2017-05-25] MEDS: Levothyroxine 100 MCG Tab PO SCH (06:38)
[2017-05-25] MEDS: metFORMIN 500 MG Tab PO SCH ×2 (06:40→17:31)
[2017-05-25] MEDS: Pantoprazole 40 MG Tab.CR PO SCH (06:40)
[2017-05-25] MEDS: Rifaximin 550 MG Tab PO SCH ×2 (09:55→21:29)
[2017-05-25] MEDS: Cholecalciferol (Vitamin D3) 1,000 Unit Tab PO SCH (09:55)
[2017-05-25] MEDS: Furosemide 40 MG Tab PO SCH (09:55)
[2017-05-25] MEDS: Ferrous Sulfate 325 MG Tab PO SCH (09:55)
[2017-05-25] MEDS: Spironolactone 100 MG Tab PO SCH ×2 (09:56→21:30)
[2017-05-25] MEDS: Insulin Aspart 100 Units/ML 3 ML Pen SUBCUT SCH ×4 (09:56→21:30)
[2017-05-25] MEDS: Lactulose Soln 10 GM/15 ML 30 ML UD Cup PO SCH ×3 (09:56→21:35)
[2017-05-25] MEDS: Magnesium Oxide 400 MG Tab PO SCH ×2 (09:56→21:29)
[2017-05-25] MEDS ORDERED: Magnesium Sulfate/Water 4 GM in Premix Bag 1 BAG IV ONE (13:56)
--- NOTE | 2017-05-25 14:00 | PCM.PN ---
- General Info Date of Service: 05/25/17 Functional Status: Reports: Tolerating Diet, Ambulating, Urinating - Review of Systems General: Reports: No Symptoms HEENT: Reports: No Symptoms Pulmonary: Reports: No Symptoms Cardiovascular: Reports: No Symptoms Gastrointestinal: Reports: No Symptoms Genitourinary: Reports: No Symptoms Musculoskeletal: Reports: No Symptoms Skin: Reports: No Symptoms Neurological: Reports: No Symptoms Psychiatric: Reports: No Symptoms - Patient Data Vitals - Most Recent: Last Vital Signs Temp 36.4 C 05/25/17 11:23 Pulse 79 05/25/17 11:23 Resp 14 05/25/17 11:23 BP 109/61 05/25/17 11:23 Pulse Ox 100 05/25/17 11:23 Weight - Most Recent: 114.26 kg I&O - Last 24 Hours: Intake & Output 05/24/17 05/25/17 05/25/17 22:59 06:59 14:59 Intake Total 1240 1640 420 Output Total 1200 1500 Balance 40 140 420 Lab Results Last 24 Hours: Laboratory Results - last 24 hr 05/24/17 05/24/17 05/24/17 Range/Units 15:20 17:39 21:36 WBC (4.23-9.07) K/mm3 RBC (4.63-6.08) M/mm3 Hgb (13.7-17.5) gm/L Hct (40.1-51.0) % MCV (79.0-92.2) fl MCH (25.7-32.2) pg MCHC (32.2-35.5) g/dl RDW Std Deviation (35.1-43.9) fL Plt Count (163-337) K/mm3 MPV (9.4-12.3) fl Neut % (Auto) (34.0-67.9) % Lymph % (Auto) (21.8-53.1) % [place] % (Auto) (5.3-12.2) % Eos % (Auto) (0.8-7.0) Baso % (Auto) (0.1-1.2) % Neut # (Auto) (1.78-5.38) K/mm3 Lymph # (Auto) (1.32-3.57) K/mm3 [place] # (Auto) (0.30-0.82) K/mm3 Eos # (Auto) (0.04-0.54) K/mm3 Baso # (Auto) (0.01-0.08) K/mm3 Manual Slide Review Sodium (136-145) mEq/L Potassium (3.5-5.1) mEq/L Chloride (98-107) mEq/L Carbon Dioxide (21-32) mEq/L Anion Gap (5-15) BUN (7-18) mg/dL Creatinine (0.7-1.3) mg/dL Est Cr Clr Drug Dosing mL/min Estimated GFR (MDRD) (>60) mL/min BUN/Creatinine Ratio (14-18) Glucose (74-106) mg/dL POC Glucose 262 H 155 H (70-105) mg/dL Calcium (8.5-10.1) mg/dL Magnesium (1.8-2.4) mg/dl Total Bilirubin (0.2-1.0) mg/dL AST (15-37) U/L ALT (16-63) U/L Alkaline Phosphatase (46-116) U/L Ammonia (11-32) umol/L C-Reactive Protein (<1.0) mg/dL Total Protein (6.4-8.2) g/dl Albumin (3.4-5.0) g/dl Globulin gm/dL Albumin/Globulin Ratio (1-2) Urine Color Yellow (Yellow) Urine Appearance Clear (Clear) Urine pH 6.0 (5.0-8.0) Ur Specific [place] > or = 1.030 (1.005-1.030) Urine Protein Negative (Negative) Urine Glucose (UA) 2+ H (Negative) Urine Ketones Negative (Negative) Urine Occult Blood 1+ H (Negative) Urine Nitrite Negative (Negative) Urine Bilirubin Negative (Negative) Urine Urobilinogen 4.0 H (0.2-1.0) Ur Leukocyte Esterase Negative (Negative) Urine RBC 5-10 H (0-5) /hpf Urine WBC 0-5 (0-5) /hpf Ur Epithelial Cells 10-20 H (0-5) /hpf Urine Bacteria Few (FEW) /hpf Urine Mucus Not seen (FEW) /hpf 05/25/17 05/25/17 05/25/17 Range/Units 04:40 04:40 04:40 WBC 2.68 L (4.23-9.07) K/mm3 RBC 2.92 L (4.63-6.08) M/mm3 Hgb 9.6 L (13.7-17.5) gm/L Hct 27.6 L (40.1-51.0) % MCV 94.5 H (79.0-92.2) fl MCH 32.9 H (25.7-32.2) pg MCHC 34.8 (32.2-35.5) g/dl RDW Std Deviation 57.7 H (35.1-43.9) fL Plt Count 35 L (163-337) K/mm3 MPV 9.6 (9.4-12.3) fl Neut % (Auto) 53.3 (34.0-67.9) % Lymph % (Auto) 31.0 (21.8-53.1) % [place] % (Auto) 12.7 H (5.3-12.2) % Eos % (Auto) 2.6 (0.8-7.0) Baso % (Auto) 0.4 (0.1-1.2) % Neut # (Auto) 1.43 L (1.78-5.38) K/mm3 Lymph # (Auto) 0.83 L (1.32-3.57) K/mm3 [place] # (Auto) 0.34 (0.30-0.82) K/mm3 Eos # (Auto) 0.07 (0.04-0.54) K/mm3 Baso # (Auto) 0.01 (0.01-0.08) K/mm3 Manual Slide Review Abnormal smear Sodium 138 (136-145) mEq/L Potassium 4.0 (3.5-5.1) mEq/L Chloride 109 H (98-107) mEq/L Carbon Dioxide 20 L (21-32) mEq/L Anion Gap 13.0 (5-15) BUN 9 (7-18) mg/dL Creatinine 0.9 (0.7-1.3) mg/dL Est Cr Clr Drug Dosing 98.20 mL/min Estimated GFR (MDRD) > 60 (>60) mL/min BUN/Creatinine Ratio 10.0 L (14-18) Glucose 176 H (74-106) mg/dL POC Glucose (70-105) mg/dL Calcium 8.5 (8.5-10.1) mg/dL Magnesium 1.5 L (1.8-2.4) mg/dl Total Bilirubin 2.2 H (0.2-1.0) mg/dL AST 29 (15-37) U/L ALT 25 (16-63) U/L Alkaline Phosphatase 74 (46-116) U/L Ammonia 73 H (11-32) umol/L C-Reactive Protein 0.3 (<1.0) mg/dL Total Protein 6.6 (6.4-8.2) g/dl Albumin 1.8 L (3.4-5.0) g/dl Globulin 4.8 gm/dL Albumin/Globulin Ratio 0.4 L (1-2) Urine Color (Yellow) Urine Appearance (Clear) Urine pH (5.0-8.0) Ur Specific [place] (1.005-1.030) Urine Protein (Negative) Urine Glucose (UA) (Negative) Urine Ketones (Negative) Urine Occult Blood (Negative) Urine Nitrite (Negative) Urine Bilirubin (Negative) Urine Urobilinogen (0.2-1.0) Ur Leukocyte Esterase (Negative) Urine RBC (0-5) /hpf Urine WBC (0-5) /hpf Ur Epithelial Cells (0-5) /hpf Urine Bacteria (FEW) /hpf Urine Mucus (FEW) /hpf 05/25/17 05/25/17 Range/Units 06:38 12:06 WBC (4.23-9.07) K/mm3 RBC (4.63-6.08) M/mm3 Hgb (13.7-17.5) gm/L Hct (40.1-51.0) % MCV (79.0-92.2) fl MCH (25.7-32.2) pg MCHC (32.2-35.5) g/dl RDW Std Deviation (35.1-43.9) fL Plt Count (163-337) K/mm3 MPV (9.4-12.3) fl Neut % (Auto) (34.0-67.9) % Lymph % (Auto) (21.8-53.1) % [place] % (Auto) (5.3-12.2) % Eos % (Auto) (0.8-7.0) Baso % (Auto) (0.1-1.2) % Neut # (Auto) (1.78-5.38) K/mm3 Lymph # (Auto) (1.32-3.57) K/mm3 [place] # (Auto) (0.30-0.82) K/mm3 Eos # (Auto) (0.04-0.54) K/mm3 Baso # (Auto) (0.01-0.08) K/mm3 Manual Slide Review Sodium (136-145) mEq/L Potassium (3.5-5.1) mEq/L Chloride (98-107) mEq/L Carbon Dioxide (21-32) mEq/L Anion Gap (5-15) BUN (7-18) mg/dL Creatinine (0.7-1.3) mg/dL Est Cr Clr Drug Dosing mL/min Estimated GFR (MDRD) (>60) mL/min BUN/Creatinine Ratio (14-18) Glucose (74-106) mg/dL POC Glucose 177 H 281 H (70-105) mg/dL Calcium (8.5-10.1) mg/dL Magnesium (1.8-2.4) mg/dl Total Bilirubin (0.2-1.0) mg/dL AST (15-37) U/L ALT (16-63) U/L Alkaline Phosphatase (46-116) U/L Ammonia (11-32) umol/L C-Reactive Protein (<1.0) mg/dL Total Protein (6.4-8.2) g/dl Albumin (3.4-5.0) g/dl Globulin gm/dL Albumin/Globulin Ratio (1-2) Urine Color (Yellow) Urine Appearance (Clear) Urine pH (5.0-8.0) Ur Specific [place] (1.005-1.030) Urine Protein (Negative) Urine Glucose (UA) (Negative) Urine Ketones (Negative) Urine Occult Blood (Negative) Urine Nitrite (Negative) Urine Bilirubin (Negative) Urine Urobilinogen (0.2-1.0) Ur Leukocyte Esterase (Negative) Urine RBC (0-5) /hpf Urine WBC (0-5) /hpf Ur Epithelial Cells (0-5) /hpf Urine Bacteria (FEW) /hpf Urine Mucus (FEW) /hpf Med Orders - Current: Current Medications Cholecalciferol (Vitamin D3) 2,000 units PO DAILY [facility] Last Admin: 05/25/17 09:55 Dose: 2,000 units Dextrose/Water (Dextrose 50% In Water) 50 ml IVPUSH ASDIRECTED PRN PRN Reason: Hypoglycemia Erythromycin (Jed-Tab) 250 mg PO Q8H [facility] Last Admin: 05/25/17 09:56 Dose: 250 mg Ferrous Sulfate (Ferrous Sulfate) 325 mg PO DAILY [facility] Last Admin: 05/25/17 09:55 Dose: 325 mg Furosemide (Lasix) 40 mg PO DAILY [facility] Last Admin: 05/25/17 09:55 Dose: 40 mg Magnesium Sulfate 4 gm/ Premix 100 mls @ 50 mls/hr IV ONETIME ONE Stop: 05/25/17 15:55 Insulin Aspart (Novolog) 0 unit SUBCUT QIDACANDBED [facility] PRN Reason: Protocol Last Admin: 05/25/17 12:08 Dose: 3 units Lactulose (Cephulac) 45 gm PO TID [facility] Last Admin: 05/25/17 09:56 Dose: 45 gm Levothyroxine Sodium (Synthroid) 100 mcg PO DAILY@0700 [facility] Last Admin: 05/25/17 06:38 Dose: 100 mcg Magnesium Oxide (Magnesium Oxide) 400 mg PO BID [facility] Last Admin: 05/25/17 09:56 Dose: 400 mg Metformin HCl (Glucophage) 1,000 mg PO BIDMEALS [facility] Last Admin: 05/25/17 06:40 Dose: 1,000 mg Multivitamins (Thera) 1 each PO BEDTIME [facility] Last Admin: 05/24/17 21:31 Dose: 1 each Pantoprazole Sodium (Protonix) 40 mg PO ACBREAKFAST [facility] Last Admin: 05/25/17 06:40 Dose: 40 mg Rifaximin (Xifaxan) 550 mg PO BID [facility] Last Admin: 05/25/17 09:55 Dose: 550 mg Sodium Chloride (Saline Flush) 10 ml FLUSH ASDIRECTED PRN PRN Reason: Keep Vein Open Last Admin: 05/24/17 00:09 Dose: 10 ml Spironolactone (Aldactone) 100 mg PO BID [facility] Last Admin: 05/25/17 09:56 Dose: 100 mg Thiamine HCl (Vitamin B-1) 100 mg PO BEDTIME [facility] Last Admin: 05/24/17 21:31 Dose: 100 mg Discontinued Medications Sodium Chloride (Normal Saline) 1,000 mls @ 75 mls/hr IV ASDIRECTED [facility] Last Admin: 05/24/17 00:09 Dose: 75 mls/hr Magnesium Sulfate 2 gm/ Premix 50 mls @ 25 mls/hr IV ONETIME ONE Stop: 05/24/17 03:18 Last Admin: 05/24/17 01:50 Dose: 25 mls/hr Lactulose (Cephulac) 30 gm PO TID [facility] Last Admin: 05/24/17 06:15 Dose: Not Given Metformin HCl (Glucophage) 850 mg PO BIDMEALS [facility] Last Admin: 05/24/17 10:59 Dose: 850 mg Potassium Chloride (Klor-Con M20) 20 meq PO DAILY [facility] Spironolactone (Aldactone) 50 mg PO BIDDIURETIC [facility] Last Admin: 05/24/17 11:18 Dose: Not Given - Exam Quality Assessment: DVT Prophylaxis General: Alert, Oriented, Cooperative, No Acute Distress HEENT: Pupils Equal, Pupils Reactive, EOMI Neck: Supple, Trachea Midline, No JVD Lungs: Clear to Auscultation, Normal Respiratory Effort Cardiovascular: Regular Rate, Regular Rhythm GI/Abdominal Exam: Normal Bowel Sounds, Soft, Non-Tender, No Organomegaly, No Distention (Male) Exam: Deferred Back Exam: Normal Inspection Extremities: Normal Inspection Skin: Warm Neurological: No New Focal Deficit, Normal Gait, Normal Speech, Other Psy/Mental Status: Alert, Normal Affect - Problem List Review Problem List Initiated/Reviewed/Updated: Yes - My Orders Last 24 Hours: My Active Orders 05/25/17 13:56 Magnesium Sulfate/Water [Magnesium Sulfate 4 GM in Water 100 ML] 4 gm Premix Bag 1 bag IV ONETIME - Plan Plan:: Impression: Hepatic Encephalopathy due to elevated ammonia levels ESLD/Cirrhosis of the liver -Ammonia level 197, ascites on physical exam today -? Medical noncompliance with not taking lactulose strongly suspected; in the past when given as prescribed when in hospital patient improves dramatically -S/P TIPS procedure years ago with minimal to no GI follow up as patient has been noncompliant with follow up--unsure when he last saw Dr. Hernandez; have made multiple attemps with multiple admissions to schedule followups but patient does not show for appointment. After last discharge, was recommended to follow up- he did not. -Coagulopathy- INR 1.27 today, d/t ESLD, not on coumadin -Lactulose 45mg PO TID -Add Erythromycin Q8H -Increase spironolactone to 100m BID Hypomagnesemia- -replace and monitor daily-->4 gm today Chronic: -Pancytopenia- due to ESLD as above- stable- monitor with dialy labs -Anemia improved since last admission with iron supplementation -Iron deficiency with iron level low at 59 on 05/11/17, B12 and folate WNL at that time -Hx of esophageal varices -Type 2 DM- last A1C 6.9 on 05/11/17- takes metformin 875mg BID at home- Accuchecks AC/HS and SSI during hospital stay -Hypothyroidism- Last TSH 5.59 with normal FT$ on 05/11/17, cont current meds -Hypovitaminosis D - last Vit D level 17 on 05/11/17, cont current supplementation Other: GI/DVT prophylax- no lovenox as thrombocytopenia, use Teds and SCD's [employer] consult for low protein diet, ESLD, DM PT/OT for weakness CM/REZA for assist with DC planning, readmissions, medical noncompliance with medications, need for further assistance such as assisted living or medication assistance as this is recurrent problem pointing at medical noncompliance with not taking medications correctly and not having follow up with GI for status on ESLD. REZA has discussed in detail patient's status and he appears to be compliant based on conversation with family members; would suggest liver transplant eval with [facility] providers. Patient is Full Code status.
[2017-05-25] MEDS: Thiamine 100 MG Tab PO SCH (21:29)
[2017-05-25] MEDS: Multivitamins,Therapeutic Tab PO SCH (21:29)
[2017-05-26] MEDS ORDERED: Temazepam 15 MG Cap PO PRN (00:56)
[2017-05-26] MEDS: Pantoprazole 40 MG Tab.CR PO SCH (06:06)
[2017-05-26] MEDS: Levothyroxine 100 MCG Tab PO SCH (06:06)
[2017-05-26] MEDS: metFORMIN 500 MG Tab PO SCH ×2 (06:06→17:03)
[2017-05-26] MEDS: Insulin Aspart 100 Units/ML 3 ML Pen SUBCUT SCH ×4 (08:50→21:05)
[2017-05-26] MEDS: Magnesium Oxide 400 MG Tab PO SCH ×2 (08:51→20:43)
[2017-05-26] MEDS: Ferrous Sulfate 325 MG Tab PO SCH (08:51)
[2017-05-26] MEDS: Cholecalciferol (Vitamin D3) 1,000 Unit Tab PO SCH (08:51)
[2017-05-26] MEDS: Rifaximin 550 MG Tab PO SCH ×2 (08:51→20:43)
[2017-05-26] MEDS: Lactulose Soln 10 GM/15 ML 30 ML UD Cup PO SCH ×3 (08:52→20:45)
[2017-05-26] MEDS: Furosemide 40 MG Tab PO SCH (08:52)
[2017-05-26] MEDS: Spironolactone 100 MG Tab PO SCH ×2 (08:52→20:43)
[2017-05-26] MEDS ORDERED: Magnesium Sulfate/Water 4 GM in Premix Bag 1 BAG IV ONE (10:00)
--- NOTE | 2017-05-26 11:36 | PCM.PN ---
- General Info Date of Service: 05/26/17 Functional Status: Reports: Tolerating Diet, Ambulating, Urinating - Review of Systems General: Reports: No Symptoms HEENT: Reports: No Symptoms Pulmonary: Reports: No Symptoms Cardiovascular: Reports: No Symptoms Gastrointestinal: Reports: No Symptoms Genitourinary: Reports: No Symptoms Musculoskeletal: Reports: No Symptoms Skin: Reports: No Symptoms Neurological: Reports: No Symptoms Psychiatric: Reports: No Symptoms - Patient Data Vitals - Most Recent: Last Vital Signs Temp 36.8 C 05/26/17 04:01 Pulse 86 05/26/17 04:01 Resp 18 05/26/17 04:01 BP 128/61 05/26/17 04:01 Pulse Ox 99 05/26/17 04:01 Weight - Most Recent: 113.942 kg I&O - Last 24 Hours: Intake & Output 05/25/17 05/26/17 05/26/17 22:59 06:59 14:59 Intake Total 1040 1600 Output Total 550 Balance 490 1600 Lab Results Last 24 Hours: Laboratory Results - last 24 hr 05/25/17 05/25/17 05/25/17 Range/Units 12:06 17:30 21:28 WBC (4.23-9.07) K/mm3 RBC (4.63-6.08) M/mm3 Hgb (13.7-17.5) gm/L Hct (40.1-51.0) % MCV (79.0-92.2) fl MCH (25.7-32.2) pg MCHC (32.2-35.5) g/dl RDW Std Deviation (35.1-43.9) fL Plt Count (163-337) K/mm3 MPV (9.4-12.3) fl Neut % (Auto) (34.0-67.9) % Lymph % (Auto) (21.8-53.1) % [place] % (Auto) (5.3-12.2) % Eos % (Auto) (0.8-7.0) Baso % (Auto) (0.1-1.2) % Neut # (Auto) (1.78-5.38) K/mm3 Lymph # (Auto) (1.32-3.57) K/mm3 [place] # (Auto) (0.30-0.82) K/mm3 Eos # (Auto) (0.04-0.54) K/mm3 Baso # (Auto) (0.01-0.08) K/mm3 Manual Slide Review Sodium (136-145) mEq/L Potassium (3.5-5.1) mEq/L Chloride (98-107) mEq/L Carbon Dioxide (21-32) mEq/L Anion Gap (5-15) BUN (7-18) mg/dL Creatinine (0.7-1.3) mg/dL Est Cr Clr Drug Dosing mL/min Estimated GFR (MDRD) (>60) mL/min BUN/Creatinine Ratio (14-18) Glucose (74-106) mg/dL POC Glucose 281 H 233 H 240 H (70-105) mg/dL Calcium (8.5-10.1) mg/dL Magnesium (1.8-2.4) mg/dl Total Bilirubin (0.2-1.0) mg/dL AST (15-37) U/L ALT (16-63) U/L Alkaline Phosphatase (46-116) U/L C-Reactive Protein (<1.0) mg/dL Total Protein (6.4-8.2) g/dl Albumin (3.4-5.0) g/dl Globulin gm/dL Albumin/Globulin Ratio (1-2) 05/26/17 05/26/17 05/26/17 Range/Units 06:05 06:31 06:31 WBC 3.07 L (4.23-9.07) K/mm3 RBC 2.98 L (4.63-6.08) M/mm3 Hgb 9.7 L (13.7-17.5) gm/L Hct 27.6 L (40.1-51.0) % MCV 92.6 H (79.0-92.2) fl MCH 32.6 H (25.7-32.2) pg MCHC 35.1 (32.2-35.5) g/dl RDW Std Deviation 55.2 H (35.1-43.9) fL Plt Count 35 L (163-337) K/mm3 MPV 10.0 (9.4-12.3) fl Neut % (Auto) 59.7 (34.0-67.9) % Lymph % (Auto) 27.7 (21.8-53.1) % [place] % (Auto) 10.7 (5.3-12.2) % Eos % (Auto) 1.6 (0.8-7.0) Baso % (Auto) 0.3 (0.1-1.2) % Neut # (Auto) 1.83 (1.78-5.38) K/mm3 Lymph # (Auto) 0.85 L (1.32-3.57) K/mm3 [place] # (Auto) 0.33 (0.30-0.82) K/mm3 Eos # (Auto) 0.05 (0.04-0.54) K/mm3 Baso # (Auto) 0.01 (0.01-0.08) K/mm3 Manual Slide Review Abnormal smear Sodium 136 (136-145) mEq/L Potassium 3.9 (3.5-5.1) mEq/L Chloride 106 (98-107) mEq/L Carbon Dioxide 22 (21-32) mEq/L Anion Gap 11.9 (5-15) BUN 11 (7-18) mg/dL Creatinine 1.0 (0.7-1.3) mg/dL Est Cr Clr Drug Dosing 88.38 mL/min Estimated GFR (MDRD) > 60 (>60) mL/min BUN/Creatinine Ratio 11.0 L (14-18) Glucose 209 H (74-106) mg/dL POC Glucose 202 H (70-105) mg/dL Calcium 8.4 L (8.5-10.1) mg/dL Magnesium 1.5 L (1.8-2.4) mg/dl Total Bilirubin 2.7 H (0.2-1.0) mg/dL AST 26 (15-37) U/L ALT 23 (16-63) U/L Alkaline Phosphatase 81 (46-116) U/L C-Reactive Protein 0.3 (<1.0) mg/dL Total Protein 6.9 (6.4-8.2) g/dl Albumin 1.9 L (3.4-5.0) g/dl Globulin 5.0 gm/dL Albumin/Globulin Ratio 0.4 L (1-2) Med Orders - Current: Current Medications Cholecalciferol (Vitamin D3) 2,000 units PO DAILY [facility] Last Admin: 05/26/17 08:51 Dose: 2,000 units Dextrose/Water (Dextrose 50% In Water) 50 ml IVPUSH ASDIRECTED PRN PRN Reason: Hypoglycemia Erythromycin (Jed-Tab) 250 mg PO Q8H [facility] Last Admin: 05/26/17 08:52 Dose: 250 mg Ferrous Sulfate (Ferrous Sulfate) 325 mg PO DAILY [facility] Last Admin: 05/26/17 08:51 Dose: 325 mg Furosemide (Lasix) 40 mg PO DAILY [facility] Last Admin: 05/26/17 08:52 Dose: 40 mg Magnesium Sulfate 4 gm/ Premix 100 mls @ 50 mls/hr IV ONETIME ONE Stop: 05/26/17 11:59 Insulin Aspart (Novolog) 0 unit SUBCUT QIDACANDBED [facility] PRN Reason: Protocol Last Admin: 05/26/17 08:50 Dose: 2 units Lactulose (Cephulac) 45 gm PO TID [facility] Last Admin: 05/26/17 08:52 Dose: 45 gm Levothyroxine Sodium (Synthroid) 100 mcg PO DAILY@0700 [facility] Last Admin: 05/26/17 06:06 Dose: 100 mcg Magnesium Oxide (Magnesium Oxide) 400 mg PO BID [facility] Last Admin: 05/26/17 08:51 Dose: 400 mg Metformin HCl (Glucophage) 1,000 mg PO BIDMEALS [facility] Last Admin: 05/26/17 06:06 Dose: 1,000 mg Multivitamins (Thera) 1 each PO BEDTIME [facility] Last Admin: 05/25/17 21:29 Dose: 1 each Pantoprazole Sodium (Protonix) 40 mg PO ACBREAKFAST [facility] Last Admin: 05/26/17 06:06 Dose: 40 mg Rifaximin (Xifaxan) 550 mg PO BID [facility] Last Admin: 05/26/17 08:51 Dose: 550 mg Sodium Chloride (Saline Flush) 10 ml FLUSH ASDIRECTED PRN PRN Reason: Keep Vein Open Last Admin: 05/24/17 00:09 Dose: 10 ml Spironolactone (Aldactone) 100 mg PO BID [facility] Last Admin: 05/26/17 08:52 Dose: 100 mg Temazepam (Restoril) 15 mg PO BEDTIME PRN PRN Reason: Insomnia Last Admin: 05/26/17 01:12 Dose: 15 mg Thiamine HCl (Vitamin B-1) 100 mg PO BEDTIME [facility] Last Admin: 05/25/17 21:29 Dose: 100 mg Discontinued Medications Sodium Chloride (Normal Saline) 1,000 mls @ 75 mls/hr IV ASDIRECTED [facility] Last Admin: 05/24/17 00:09 Dose: 75 mls/hr Magnesium Sulfate 2 gm/ Premix 50 mls @ 25 mls/hr IV ONETIME ONE Stop: 05/24/17 03:18 Last Admin: 05/24/17 01:50 Dose: 25 mls/hr Magnesium Sulfate 4 gm/ Premix 100 mls @ 50 mls/hr IV ONETIME ONE Stop: 05/25/17 15:55 Last Admin: 05/25/17 15:10 Dose: 50 mls/hr Lactulose (Cephulac) 30 gm PO TID [facility] Last Admin: 05/24/17 06:15 Dose: Not Given Metformin HCl (Glucophage) 850 mg PO BIDMEALS [facility] Last Admin: 05/24/17 10:59 Dose: 850 mg Potassium Chloride (Klor-Con M20) 20 meq PO DAILY [facility] Spironolactone (Aldactone) 50 mg PO BIDDIURETIC [facility] Last Admin: 05/24/17 11:18 Dose: Not Given - Exam Quality Assessment: DVT Prophylaxis General: Alert, Oriented, Cooperative, No Acute Distress HEENT: Pupils Equal, Pupils Reactive, EOMI Neck: Supple, Trachea Midline Lungs: Normal Respiratory Effort Cardiovascular: Regular Rate, Regular Rhythm GI/Abdominal Exam: Normal Bowel Sounds, Soft, Non-Tender, No Organomegaly, No Distention (Male) Exam: Deferred Back Exam: Normal Inspection Extremities: Normal Inspection Skin: Warm Neurological: No New Focal Deficit, Normal Gait, Normal Speech Psy/Mental Status: Alert, Normal Affect, Normal Mood - Problem List Review Problem List Initiated/Reviewed/Updated: Yes - My Orders Last 24 Hours: My Active Orders 05/26/17 00:56 Temazepam [Restoril] 15 mg PO BEDTIME PRN 05/26/17 10:00 Magnesium Sulfate/Water [Magnesium Sulfate 4 GM in Water 100 ML] 4 gm Premix Bag 1 bag IV ONETIME 05/26/17 11:15 AMMONIA VENOUS [CHEM] Routine 05/27/17 05:00 AMMONIA VENOUS [CHEM] Routine - Plan Plan:: Impression: Hepatic Encephalopathy due to elevated ammonia levels ESLD/Cirrhosis of the liver -Ammonia level 197, ascites on physical exam when admitted -? Medical noncompliance with not taking lactulose strongly suspected; in the past when given as prescribed when in hospital patient improves dramatically ;patient gets limited meds from S Ammonia level increased fro 70--->90 todya without change in therapy -S/P TIPS procedure years ago with minimal to no GI follow up as patient has been noncompliant with follow up--unsure when he last saw Dr. Hernandez; have made multiple attemps with multiple admissions to schedule followups but patient does not show for appointment. After last discharge, was recommended to follow up- he did not. -Coagulopathy- INR 1.27 today, d/t ESLD, not on coumadin -Lactulose 45mg PO TID -Add Erythromycin Q8H -Increase spironolactone to 100m BID Hypomagnesemia- -replace and monitor daily-->4 gm today Chronic: -Pancytopenia- due to ESLD as above- stable- monitor with dialy labs -Anemia improved since last admission with iron supplementation -Iron deficiency with iron level low at 59 on 05/11/17, B12 and folate WNL at that time -Hx of esophageal varices -Type 2 DM- last A1C 6.9 on 05/11/17- takes metformin 875mg BID at home- Accuchecks AC/HS and SSI during hospital stay -Hypothyroidism- Last TSH 5.59 with normal FT$ on 05/11/17, cont current meds -Hypovitaminosis D - last Vit D level 17 on 05/11/17, cont current supplementation Other: GI/DVT prophylax- no lovenox as thrombocytopenia, use Teds and SCD's [employer] consult for low protein diet, ESLD, DM --->before DC on Saturday, . PT/OT for weakness CM/SW for assist with DC planning, readmissions, medical noncompliance with medications, need for further assistance such as assisted living or medication assistance as this is recurrent problem pointing at medical noncompliance with not taking medications correctly and not having follow up with GI for status on ESLD. SW has discussed in detail patient's status and he appears to be compliant based on conversation with family members; would suggest liver transplant eval with [facility] providers. Patient is Full Code status.
[2017-05-26] MEDS: Thiamine 100 MG Tab PO SCH (20:43)
[2017-05-26] MEDS: Multivitamins,Therapeutic Tab PO SCH (20:43)
[2017-05-27] MEDS: Levothyroxine 100 MCG Tab PO SCH (06:39)
[2017-05-27] MEDS: metFORMIN 500 MG Tab PO SCH (06:39)
[2017-05-27] MEDS: Pantoprazole 40 MG Tab.CR PO SCH (06:39)
[2017-05-27] MEDS ORDERED: Magnesium Oxide 400 MG Tab PO ONE (07:50)
--- NOTE | 2017-05-27 08:02 | PCM.DCSUM1 ---
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 Last admission was 12 days ago with significant improvements with restarting his lactulose home dosing, return to usual baseline mental status with discharge 2 days later. He was to have follow up with GI, Dr. Barker and did not follow up with this recommendation. He is not sure the last time he has seen his GI specialist. He is s/p TIPS procedure a few years ago and has not had follow up with this. I talked to him at length last admission regarding follow up with GI, he was adamant that he would follow up after discharge last time, 10 days ago. He was brought in by ambulance yesterday with altered mental status, sedated to lethargic, noncommunicative on arrival to ED. Ammonia level was found to be 197 which by chart review is the highest it has been since his admissions since February of this year. Lowest ammonia level had been 41 in February of this year. He also has Hx of type 2 DM. Last A1C 6.9 on 05/11/17. Hypothyroidism with last TSH 5.59, normal FTF at 1.35 on 05/11/17. Pancytopenia likely due to ESLD which is stable today, improved from last admission; hgb ranges from 8.4-10.4, platelets range from 35-49; also iron deficient with last iron studies done on , iron level of 59, is on supplemental oral iron. Hospitalist service is consulted for admission for hepatic encephalopathy. He is full code status. Course of hospital stay was uneventful. He was treated with usual dose of lactulose, erythromycin was added, spironolactone dose was increased to 100mg BID. He improved significantly. Mental status is back to baseline. Ammonia level is down to 120. It is recommended he see his GI specialist Dr Barker and PCP to discuss possible referral to [facility] or other tertiary care center to discuss options for liver transplant if he would be candidate. He is to follow up with PCP within one week of discharge and with Dr. Barker as soon as possible. Take medications as prescribed. Should be noted that if he returns to ER again HOSPITALIST TEAM WILL RECOMMEND TRANSFER TO [place] FOR GI EVALUATION vs admission to [facility] where this resource is not available as patient has not seen GI for quite some times and it is clear that liver disease is progressing. - Discharge Data Discharge Date: 05/27/17 (admit date 05/24/17) Discharge Disposition: Home, Self-Care 01 Condition: Good - Discharge Diagnosis/Problem(s) (1) Hepatic encephalopathy SNOMED Code(s): 16117267 ICD Code: K72.90 - HEPATIC FAILURE, UNSPECIFIED WITHOUT COMA Status: Resolved Priority: High Problem Details: - 2/2 Medical Non-compliance: admits to not taking lactulose (2) Cirrhosis of liver with ascites SNOMED Code(s): 98575689 ICD Code: K74.60 - UNSPECIFIED CIRRHOSIS OF LIVER Status: Chronic Priority: Medium QualifierTitle: Hepatic cirrhosis type: unspecified hepatic cirrhosis Qualified Code(s): K74.60 - Unspecified cirrhosis of liver (3) Pancytopenia, acquired SNOMED Code(s): 4822325 ICD Code: D61.818 - OTHER PANCYTOPENIA Status: Chronic Priority: High (4) S/P TIPS (transjugular intrahepatic portosystemic shunt) SNOMED Code(s): 478954044 ICD Code: Z95.828 - PRESENCE OF OTHER VASCULAR IMPLANTS AND GRAFTS Status: Chronic Priority: Medium (5) Diabetes mellitus type 2 SNOMED Code(s): 39849142 ICD Code: E11.9 - TYPE 2 DIABETES MELLITUS WITHOUT COMPLICATIONS Status: Chronic Priority: Medium (6) Iron deficiency anemia SNOMED Code(s): 01298022 ICD Code: D50.9 - IRON DEFICIENCY ANEMIA, UNSPECIFIED Status: Chronic Priority: Medium QualifierTitle: Iron deficiency anemia type: unspecified iron deficiency Qualified Code(s): D50.9 - Iron deficiency anemia, unspecified (7) Hypomagnesemia SNOMED Code(s): 572200777 ICD Code: E83.42 - HYPOMAGNESEMIA Status: Chronic Priority: High - Patient Summary/Data Operative Procedure(s) Performed: None Complications: None Consults: Consultations 05/24/17 02:56 Consult to Oil Lease Buyer [CONS] Routine 05/24/17 08:57 OT Evaluation and Treatment [CONS] Routine PT Evaluation and Treatment [CONS] Routine 05/24/17 08:58 Consult to Compacting Machine Operator/Tender [CONS] Routine Labs Pending at D/C: None Recommended Follow-up Testing/Procedures: Patient DC instructions: Check blood sugars before meals, at bedtime and as needed. FOLLOW UP WITH PRIMARY CARE PROVIDER TO DISCUSS REFERRAL TO [facility] TO DISCUSS POSSIBILITY OF LIVER TRANSPLANT FOLLOW UP WITH DR BARKER SOON POSSIBLE- GI DOCTOR- ALSO TO DISCUSS POSSIBILITY OF LIVER TRANSPLANT TAKE ALL MEDICATIONS PRESCRIBED Planned Operative Procedure(s) after DC: None Hospital Course: As above - Patient Instructions Diet: Usual Diet as Tolerated (low protein diet as discussed with Compacting Machine Operator/Tender), Low Sodium, No Alcoholic Beverages Activity: As Tolerated Driving: Do Not Drive Showering/Bathing: May Shower Notify Provider of: Fever, Increased Pain, Swelling and Redness, Nausea and/or Vomiting (worsening or change in mental status; confusion) - Discharge Plan Prescriptions/Med Rec: Erythromycin Base [Jed-Tab] 250 mg PO Q8H #90 tablet Magnesium Oxide 800 mg PO BID #60 tablet metFORMIN [Glucophage] 1,000 mg PO BIDMEALS #60 tablet Spironolactone [Aldactone] 100 mg PO BID #60 tablet Home Medications: Home Meds Pantoprazole [ProTONIX] 40 mg PO ACBREAKFAST #30 tab.cr 12/08/15 [Rx] Rifaximin [Xifaxan] 550 mg PO BID 06/13/16 [History] Cholecalciferol (Vitamin D3) [Vitamin D3] 2,000 unit PO DAILY #30 tablet [Rx] Ferrous Sulfate 325 mg PO DAILY #30 tablet 05/14/17 [Rx] Furosemide [Lasix] 40 mg PO DAILY #30 tablet 05/14/17 [Rx] Levothyroxine [Synthroid] 100 mcg PO DAILY@0700 #30 tablet 05/14/17 [Rx] Multivitamins,Therapeutic [Thera] 1 each PO BEDTIME tablet 05/14/17 [Rx] Thiamine [Vitamin B-1] 100 mg PO BEDTIME #30 tablet 05/14/17 [Rx] Lactulose [Cephulac] 45 gm PO TID 05/24/17 [History] Erythromycin Base [Jed-Tab] 250 mg PO Q8H #90 tablet 05/27/17 [Rx] Magnesium Oxide 800 mg PO BID #60 tablet 05/27/17 [Rx] Spironolactone [Aldactone] 100 mg PO BID #60 tablet 05/27/17 [Rx] metFORMIN [Glucophage] 1,000 mg PO BIDMEALS #60 tablet 05/27/17 [Rx] Patient Handouts: Hepatic Encephalopathy Forms: ED Department Discharge Referrals: Boris Barker MD [Ordering Only Provider] - Howard Terrell [Physician] - 05/30/17 3:00 pm (Please follow up with Dr. Jordan on at 1500.) - Discharge Summary/Plan Comment DC Time >30 min.: Yes (45 min) - General Info Date of Service: 05/27/17 Admission Dx/Problem (Free Text: Admission Diagnosis/Problem Admission Diagnosis/Problem Hepatic encephalopathy Patient seen this morning. Feeling much better; able to carry on full conversations. Pleasant and appropriate. Anxious for DC home today. Functional Status: Reports: Pain Controlled (no pain), Tolerating Diet, Ambulating, Urinating. Denies: New Symptoms - Review of Systems General: Reports: No Symptoms. Denies: Weakness, Fatigue HEENT: Reports: No Symptoms. Denies: Headaches Pulmonary: Reports: No Symptoms. Denies: Shortness of Breath, Cough Cardiovascular: Reports: No Symptoms. Denies: Chest Pain, Palpitations, Dyspnea on Exertion Gastrointestinal: Reports: No Symptoms. Denies: Abdominal Pain, Constipation, Diarrhea, Nausea, Vomiting Genitourinary: Reports: No Symptoms Musculoskeletal: Reports: No Symptoms Skin: Reports: No Symptoms Neurological: Reports: No Symptoms. Denies: Confusion Psychiatric: Reports: No Symptoms. Denies: Confusion - Patient Data Vitals - Most Recent: Last Vital Signs Temp 97.9 F 05/27/17 07:53 Pulse 82 05/27/17 07:53 Resp 18 05/27/17 07:53 BP 109/47 L 05/27/17 07:53 Pulse Ox 100 05/27/17 07:53 Weight - Most Recent: 115.122 kg I&O - Last 24 hours: Intake & Output 05/26/17 05/27/17 05/27/17 22:59 06:59 14:59 Intake Total 800 600 Balance 800 600 Lab Results - Last 24 hrs: Laboratory Results - last 24 hr 05/26/17 05/26/17 05/26/17 Range/Units 11:15 11:46 16:12 WBC (4.23-9.07) K/mm3 RBC (4.63-6.08) M/mm3 Hgb (13.7-17.5) gm/L Hct (40.1-51.0) % MCV (79.0-92.2) fl MCH (25.7-32.2) pg MCHC (32.2-35.5) g/dl RDW Std Deviation (35.1-43.9) fL Plt Count (163-337) K/mm3 MPV (9.4-12.3) fl Neut % (Auto) (34.0-67.9) % Lymph % (Auto) (21.8-53.1) % [place] % (Auto) (5.3-12.2) % Eos % (Auto) (0.8-7.0) Baso % (Auto) (0.1-1.2) % Neut # (Auto) (1.78-5.38) K/mm3 Lymph # (Auto) (1.32-3.57) K/mm3 [place] # (Auto) (0.30-0.82) K/mm3 Eos # (Auto) (0.04-0.54) K/mm3 Baso # (Auto) (0.01-0.08) K/mm3 Manual Slide Review Sodium (136-145) mEq/L Potassium (3.5-5.1) mEq/L Chloride (98-107) mEq/L Carbon Dioxide (21-32) mEq/L Anion Gap (5-15) BUN (7-18) mg/dL Creatinine (0.7-1.3) mg/dL Est Cr Clr Drug Dosing mL/min Estimated GFR (MDRD) (>60) mL/min BUN/Creatinine Ratio (14-18) Glucose (74-106) mg/dL POC Glucose 265 H 284 H (70-105) mg/dL Calcium (8.5-10.1) mg/dL Magnesium (1.8-2.4) mg/dl Total Bilirubin (0.2-1.0) mg/dL AST (15-37) U/L ALT (16-63) U/L Alkaline Phosphatase (46-116) U/L Ammonia 90 H (11-32) umol/L C-Reactive Protein (<1.0) mg/dL Total Protein (6.4-8.2) g/dl Albumin (3.4-5.0) g/dl Globulin gm/dL Albumin/Globulin Ratio (1-2) 05/26/17 05/27/17 05/27/17 Range/Units 20:36 06:21 06:21 WBC 3.73 L (4.23-9.07) K/mm3 RBC 2.84 L (4.63-6.08) M/mm3 Hgb 9.3 L (13.7-17.5) gm/L Hct 26.0 L (40.1-51.0) % MCV 91.5 (79.0-92.2) fl MCH 32.7 H (25.7-32.2) pg MCHC 35.8 H (32.2-35.5) g/dl RDW Std Deviation 54.1 H (35.1-43.9) fL Plt Count 37 L (163-337) K/mm3 MPV 9.6 (9.4-12.3) fl Neut % (Auto) 60.0 (34.0-67.9) % Lymph % (Auto) 27.9 (21.8-53.1) % [place] % (Auto) 10.2 (5.3-12.2) % Eos % (Auto) 1.3 (0.8-7.0) Baso % (Auto) 0.3 (0.1-1.2) % Neut # (Auto) 2.24 (1.78-5.38) K/mm3 Lymph # (Auto) 1.04 L (1.32-3.57) K/mm3 [place] # (Auto) 0.38 (0.30-0.82) K/mm3 Eos # (Auto) 0.05 (0.04-0.54) K/mm3 Baso # (Auto) 0.01 (0.01-0.08) K/mm3 Manual Slide Review Abnormal smear Sodium 136 (136-145) mEq/L Potassium 4.2 (3.5-5.1) mEq/L Chloride 105 (98-107) mEq/L Carbon Dioxide 23 (21-32) mEq/L Anion Gap 12.2 (5-15) BUN 13 (7-18) mg/dL Creatinine 0.9 (0.7-1.3) mg/dL Est Cr Clr Drug Dosing 98.20 mL/min Estimated GFR (MDRD) > 60 (>60) mL/min BUN/Creatinine Ratio 14.4 (14-18) Glucose 192 H (74-106) mg/dL POC Glucose 229 H (70-105) mg/dL Calcium 8.2 L (8.5-10.1) mg/dL Magnesium 1.7 L (1.8-2.4) mg/dl Total Bilirubin 2.6 H (0.2-1.0) mg/dL AST 26 (15-37) U/L ALT 21 (16-63) U/L Alkaline Phosphatase 75 (46-116) U/L Ammonia (11-32) umol/L C-Reactive Protein 0.3 (<1.0) mg/dL Total Protein 6.5 (6.4-8.2) g/dl Albumin 1.8 L (3.4-5.0) g/dl Globulin 4.7 gm/dL Albumin/Globulin Ratio 0.4 L (1-2) 05/27/17 05/27/17 Range/Units 06:21 06:37 WBC (4.23-9.07) K/mm3 RBC (4.63-6.08) M/mm3 Hgb (13.7-17.5) gm/L Hct (40.1-51.0) % MCV (79.0-92.2) fl MCH (25.7-32.2) pg MCHC (32.2-35.5) g/dl RDW Std Deviation (35.1-43.9) fL Plt Count (163-337) K/mm3 MPV (9.4-12.3) fl Neut % (Auto) (34.0-67.9) % Lymph % (Auto) (21.8-53.1) % [place] % (Auto) (5.3-12.2) % Eos % (Auto) (0.8-7.0) Baso % (Auto) (0.1-1.2) % Neut # (Auto) (1.78-5.38) K/mm3 Lymph # (Auto) (1.32-3.57) K/mm3 [place] # (Auto) (0.30-0.82) K/mm3 Eos # (Auto) (0.04-0.54) K/mm3 Baso # (Auto) (0.01-0.08) K/mm3 Manual Slide Review Sodium (136-145) mEq/L Potassium (3.5-5.1) mEq/L Chloride (98-107) mEq/L Carbon Dioxide (21-32) mEq/L Anion Gap (5-15) BUN (7-18) mg/dL Creatinine (0.7-1.3) mg/dL Est Cr Clr Drug Dosing mL/min Estimated GFR (MDRD) (>60) mL/min BUN/Creatinine Ratio (14-18) Glucose (74-106) mg/dL POC Glucose 174 H (70-105) mg/dL Calcium (8.5-10.1) mg/dL Magnesium (1.8-2.4) mg/dl Total Bilirubin (0.2-1.0) mg/dL AST (15-37) U/L ALT (16-63) U/L Alkaline Phosphatase (46-116) U/L Ammonia 120 H (11-32) umol/L C-Reactive Protein (<1.0) mg/dL Total Protein (6.4-8.2) g/dl Albumin (3.4-5.0) g/dl Globulin gm/dL Albumin/Globulin Ratio (1-2) Med Orders - Current: Current Medications Cholecalciferol (Vitamin D3) 2,000 units PO DAILY [facility] Last Admin: 05/26/17 08:51 Dose: 2,000 units Dextrose/Water (Dextrose 50% In Water) 50 ml IVPUSH ASDIRECTED PRN PRN Reason: Hypoglycemia Erythromycin (Jed-Tab) 250 mg PO Q8H [facility] Last Admin: 05/27/17 02:18 Dose: 250 mg Ferrous Sulfate (Ferrous Sulfate) 325 mg PO DAILY [facility] Last Admin: 05/26/17 08:51 Dose: 325 mg Furosemide (Lasix) 40 mg PO DAILY [facility] Last Admin: 05/26/17 08:52 Dose: 40 mg Insulin Aspart (Novolog) 0 unit SUBCUT QIDACANDBED [facility] PRN Reason: Protocol Last Admin: 05/26/17 21:05 Dose: 2 units Lactulose (Cephulac) 45 gm PO QID [facility] Last Admin: 05/26/17 20:45 Dose: 45 gm Levothyroxine Sodium (Synthroid) 100 mcg PO DAILY@0700 [facility] Last Admin: 05/27/17 06:39 Dose: 100 mcg Magnesium Oxide (Magnesium Oxide) 400 mg PO BID [facility] Last Admin: 05/26/17 20:43 Dose: 400 mg Metformin HCl (Glucophage) 1,000 mg PO BIDMEALS [facility] Last Admin: 05/27/17 06:39 Dose: 1,000 mg Multivitamins (Thera) 1 each PO BEDTIME [facility] Last Admin: 05/26/17 20:43 Dose: 1 each Pantoprazole Sodium (Protonix) 40 mg PO ACBREAKFAST [facility] Last Admin: 05/27/17 06:39 Dose: 40 mg Rifaximin (Xifaxan) 550 mg PO BID [facility] Last Admin: 05/26/17 20:43 Dose: 550 mg Sodium Chloride (Saline Flush) 10 ml FLUSH ASDIRECTED PRN PRN Reason: Keep Vein Open Last Admin: 05/24/17 00:09 Dose: 10 ml Spironolactone (Aldactone) 100 mg PO BID [facility] Last Admin: 05/26/17 20:43 Dose: 100 mg Thiamine HCl (Vitamin B-1) 100 mg PO BEDTIME [facility] Last Admin: 05/26/17 20:43 Dose: 100 mg Discontinued Medications Sodium Chloride (Normal Saline) 1,000 mls @ 75 mls/hr IV ASDIRECTED [facility] Last Admin: 05/24/17 00:09 Dose: 75 mls/hr Magnesium Sulfate 2 gm/ Premix 50 mls @ 25 mls/hr IV ONETIME ONE Stop: 05/24/17 03:18 Last Admin: 05/24/17 01:50 Dose: 25 mls/hr Magnesium Sulfate 4 gm/ Premix 100 mls @ 50 mls/hr IV ONETIME ONE Stop: 05/25/17 15:55 Last Admin: 05/25/17 15:10 Dose: 50 mls/hr Magnesium Sulfate 4 gm/ Premix 100 mls @ 50 mls/hr IV ONETIME ONE Stop: 05/26/17 11:59 Last Admin: 05/26/17 11:47 Dose: 50 mls/hr Lactulose (Cephulac) 30 gm PO TID [facility] Last Admin: 05/24/17 06:15 Dose: Not Given Lactulose (Cephulac) 45 gm PO TID [facility] Last Admin: 05/26/17 08:52 Dose: 45 gm Magnesium Oxide (Magnesium Oxide) 400 mg PO ONETIME ONE Stop: 05/27/17 07:51 Metformin HCl (Glucophage) 850 mg PO BIDMEALS [facility] Last Admin: 05/24/17 10:59 Dose: 850 mg Potassium Chloride (Klor-Con M20) 20 meq PO DAILY [facility] Spironolactone (Aldactone) 50 mg PO BIDDIURETIC [facility] Last Admin: 05/24/17 11:18 Dose: Not Given Temazepam (Restoril) 15 mg PO BEDTIME PRN PRN Reason: Insomnia Last Admin: 05/26/17 01:12 Dose: 15 mg - Exam Quality Assessment: Reports: DVT Prophylaxis General: Reports: Alert, Oriented, Cooperative, No Acute Distress HEENT: Reports: Pupils Equal, EOMI, Mucous Membr. Moist/[employer], Scleral Icterus ( mild) Neck: Reports: Supple, No JVD Lungs: Reports: Clear to Auscultation, Normal Respiratory Effort, Decreased Breath Sounds (bases) Cardiovascular: Reports: Regular Rate, Regular Rhythm GI/Abdominal Exam: Normal Bowel Sounds, Soft, Non-Tender, Tender (minimal- improved), Hepatomegaly, Splenomegaly. No: Guarding, Rigid, Rebound (Male) Exam: Deferred Rectal (Males) Exam: Deferred Extremities: Normal Capillary Refill, Pedal Edema (trace) Skin: Reports: Warm, Dry Neurological: Reports: No New Focal Deficit, Strength Equal Bilateral Psy/Mental Status: Reports: Alert, Normal Affect, Normal Mood *Q Meaningful Use (DIS) - VTE *Q VTE Criteria *Q: - Stroke *Q Stroke Criteria *Q: - AMI *Q AMI Criteria *Q: <Shannan Nuno - Last Filed: 05/29/17 17:54> Discharge Summary - Hospital Course Free Text/Narrative:: Stongely suggest liver transplant evaluation at [facility] or [facility]; labile--> ammonia level easily increased without change in diet during hospitalization. Spoke with ED physician who knows the patient, he will attempt to try an additional dose of lactulose plus erythromycin to avoid need for hospitalization. - Patient Summary/Data Consults: Consultations 05/24/17 02:56 Consult to Oil Lease Buyer [CONS] Routine 05/24/17 08:57 OT Evaluation and Treatment [CONS] Routine PT Evaluation and Treatment [CONS] Routine 05/24/17 08:58 Consult to Compacting Machine Operator/Tender [CONS] Routine - Patient Data Vitals - Most Recent: Last Vital Signs Temp 36.7 C 05/27/17 12:11 Pulse 78 05/27/17 12:11 Resp 20 05/27/17 12:11 BP 100/57 L 05/27/17 12:11 Pulse Ox 100 05/27/17 12:11 Med Orders - Current: Current Medications Discontinued Medications Cholecalciferol (Vitamin D3) 2,000 units PO DAILY [facility] Last Admin: 05/27/17 08:41 Dose: 2,000 units Dextrose/Water (Dextrose 50% In Water) 50 ml IVPUSH ASDIRECTED PRN PRN Reason: Hypoglycemia Erythromycin (Jed-Tab) 250 mg PO Q8H [facility] Last Admin: 05/27/17 08:40 Dose: 250 mg Ferrous Sulfate (Ferrous Sulfate) 325 mg PO DAILY [facility] Last Admin: 05/27/17 08:40 Dose: 325 mg Furosemide (Lasix) 40 mg PO DAILY [facility] Last Admin: 05/27/17 08:41 Dose: 40 mg Sodium Chloride (Normal Saline) 1,000 mls @ 75 mls/hr IV ASDIRECTED [facility] Last Admin: 05/24/17 00:09 Dose: 75 mls/hr Magnesium Sulfate 2 gm/ Premix 50 mls @ 25 mls/hr IV ONETIME ONE Stop: 05/24/17 03:18 Last Admin: 05/24/17 01:50 Dose: 25 mls/hr Magnesium Sulfate 4 gm/ Premix 100 mls @ 50 mls/hr IV ONETIME ONE Stop: 05/25/17 15:55 Last Admin: 05/25/17 15:10 Dose: 50 mls/hr Magnesium Sulfate 4 gm/ Premix 100 mls @ 50 mls/hr IV ONETIME ONE Stop: 05/26/17 11:59 Last Admin: 05/26/17 11:47 Dose: 50 mls/hr Insulin Aspart (Novolog) 0 unit SUBCUT QIDACANDBED [facility] PRN Reason: Protocol Last Admin: 05/27/17 11:42 Dose: 2 units Lactulose (Cephulac) 30 gm PO TID [facility] Last Admin: 05/24/17 06:15 Dose: Not Given Lactulose (Cephulac) 45 gm PO TID [facility] Last Admin: 05/26/17 08:52 Dose: 45 gm Lactulose (Cephulac) 45 gm PO QID [facility] Last Admin: 05/27/17 13:21 Dose: Not Given Levothyroxine Sodium (Synthroid) 100 mcg PO DAILY@0700 [facility] Last Admin: 05/27/17 06:39 Dose: 100 mcg Magnesium Oxide (Magnesium Oxide) 400 mg PO BID [facility] Last Admin: 05/27/17 08:41 Dose: 400 mg Magnesium Oxide (Magnesium Oxide) 400 mg PO ONETIME ONE Stop: 05/27/17 07:51 Last Admin: 05/27/17 08:40 Dose: 400 mg Metformin HCl (Glucophage) 850 mg PO BIDMEALS [facility] Last Admin: 05/24/17 10:59 Dose: 850 mg Metformin HCl (Glucophage) 1,000 mg PO BIDMEALS [facility] Last Admin: 05/27/17 06:39 Dose: 1,000 mg Multivitamins (Thera) 1 each PO BEDTIME [facility] Last Admin: 05/26/17 20:43 Dose: 1 each Pantoprazole Sodium (Protonix) 40 mg PO ACBREAKFAST [facility] Last Admin: 05/27/17 06:39 Dose: 40 mg Potassium Chloride (Klor-Con M20) 20 meq PO DAILY [facility] Rifaximin (Xifaxan) 550 mg PO BID [facility] Last Admin: 05/27/17 08:40 Dose: 550 mg Sodium Chloride (Saline Flush) 10 ml FLUSH ASDIRECTED PRN PRN Reason: Keep Vein Open Last Admin: 05/24/17 00:09 Dose: 10 ml Spironolactone (Aldactone) 50 mg PO BIDDIURETIC [facility] Last Admin: 05/24/17 11:18 Dose: Not Given Spironolactone (Aldactone) 100 mg PO BID [facility] Last Admin: 05/27/17 08:40 Dose: 100 mg Temazepam (Restoril) 15 mg PO BEDTIME PRN PRN Reason: Insomnia Last Admin: 05/26/17 01:12 Dose: 15 mg Thiamine HCl (Vitamin B-1) 100 mg PO BEDTIME [facility] Last Admin: 05/26/17 20:43 Dose: 100 mg *Q Meaningful Use (DIS) - VTE *Q VTE Criteria *Q: - Stroke *Q Stroke Criteria *Q: - AMI *Q AMI Criteria *Q:
[2017-05-27] MEDS: Insulin Aspart 100 Units/ML 3 ML Pen SUBCUT SCH ×2 (08:38→11:42)
[2017-05-27] MEDS: Spironolactone 100 MG Tab PO SCH (08:40)
[2017-05-27] MEDS: Rifaximin 550 MG Tab PO SCH (08:40)
[2017-05-27] MEDS: Ferrous Sulfate 325 MG Tab PO SCH (08:40)
[2017-05-27] MEDS: Cholecalciferol (Vitamin D3) 1,000 Unit Tab PO SCH (08:41)
[2017-05-27] MEDS: Lactulose Soln 10 GM/15 ML 30 ML UD Cup PO SCH ×2 (08:41→13:21)
[2017-05-27] MEDS: Furosemide 40 MG Tab PO SCH (08:41)
[2017-05-27] MEDS: Magnesium Oxide 400 MG Tab PO SCH (08:41)
[2017-05-27 12:51] VITALS: BP 100/57
== END 2017-05-27 13:08 | disposition home or self-care (01) | DRG 279 ==
LOC: JD.ED 23:42 → JD.MS 05-24 01:34
PROVIDERS: ADMIT Internal Medicine Cardiovascular Disease; ATTEND Internal Medicine Cardiovascular Disease
DX: K72.90 Hepatic failure, unspecified without coma (principal); I10 Essential (primary) hypertension; K21.9 Gastro-esophageal reflux disease without esophagitis; E11.9 Type 2 diabetes mellitus without complications; E66.9 Obesity, unspecified; Z68.30 Body mass index [BMI] 30.0-30.9, adult; D64.9 Anemia, unspecified; Z87.891 Personal history of nicotine dependence; Z79.84 Long term (current) use of oral hypoglycemic drugs; Z79.899 Other long term (current) drug therapy; K74.60 Unspecified cirrhosis of liver; D61.818 Other pancytopenia; Z95.828 Presence of other vascular implants and grafts; D50.9 Iron deficiency anemia, unspecified; E83.42 Hypomagnesemia; F10.21 Alcohol dependence, in remission; E03.9 Hypothyroidism, unspecified; Z91.19 Patient's noncompliance with other medical treatment and regimen
CPT/HCPCS: 36415; 70450; 70450-26; 80053; 81001; 82140; 82962; 83690; 83735; 85025; 85610; 86140; 93005; 96361; 96365; 97161-GP; 97165-GO; 97166-GO; 97530-GO; 99285; 99285-25; A9270-GY; G0480; J1815-GY; J3475; J7040; J7050

== ENCOUNTER 2017-05-31 22:13 | Emergency (ER) | payer BC ==
[2017-05-31] MEDS ORDERED: Propofol 200 MG/20 ML SDV IVPUSH ONE (22:21)
[2017-05-31] MEDS ORDERED: Furosemide 40 MG/4 ML VIAL IVPUSH ONE (23:15)
--- NOTE | 2017-05-31 23:16 | EDM.PDOC ---
ED HPI GENERAL MEDICAL PROBLEM - General Chief Complaint: Neuro Symptoms/Deficits Stated Complaint: ALEXIA BONE Time Seen by Provider: 05/31/17 22:13 Source of Information: Reports: EMS, Old Records, RN Notes Reviewed History Limitations: Reports: Physical Impairment - History of Present Illness INITIAL COMMENTS - FREE TEXT/NARRATIVE: According to EMS, the patient was found unresponsive, facedown, with a nosebleed at home around 21:00. He responded only to sternal rub. Accucheck 223. His initial blood pressure was 142/82 with a heart rate of 98, saturating 95% on room air, however, he breathing was sonorous. When they attempted to place an oral airway, the patient was found to be clenching down his mandible, therefore Versed was given, and they were able to insert an oral airway. Blood pressure en route went as low as 112/57, therefore 400 mL normal saline was given. Upon arrival to the ED, his blood pressure 154/129 with a heart rate of 83, saturating 99% on room air, however, he remained unresponsive. Due to a known history of liver disease and his elevated BP, the IV fluid was held upon arrival to the ED. Due to his obtundation, the patient was intubated shortly after arrival to the ED for airway protection with an 8.0 ET tube, following 40 mg IV propofol. A propofol drip was then started at 50 g/kg/min. Initial vent setting was A/C 12 / .500 / 5 / 0.21. A cervical collar was placed following intubation. 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 Medical records indicate that the patient's CODE STATUS is full code. Family had told EMS that they wanted everything done. - Related Data Allergies Allergy/AdvReac Type Severity Reaction Status Date / Time No Known Allergies Allergy Verified 05/31/17 22:52 Home Meds: Home Meds Cholecalciferol (Vitamin D3) [Vitamin D3] 2,000 units PO DAILY 05/31/17 [History ] Furosemide 40 mg PO DAILY 05/31/17 [History] Levothyroxine [Synthroid] 100 mcg PO DAILY 05/31/17 [History] Thiamine Mononitrate [Vitamin B-1] 1 tab PO DAILY 05/31/17 [History] Past Medical History Cardiovascular History: Reports: Hypertension Gastrointestinal History: Reports: Cirrhosis, GERD, GI Bleed Psychiatric History: Reports: Addiction (alcohol) Endocrine/Metabolic History: Reports: Diabetes, Type II, Hypothyroidism, Obesity /BMI 30+ Hematologic History: Reports: Anemia, Blood Transfusion(s) Dermatologic History: Reports: Cellulitis, Eczema - Infectious Disease History Infectious Disease History: Reports: Hepatitis non A,B,C, Measles, MRSA - Past Surgical History GI Surgical History: Reports: Other (See Below) (TIPS procedure) Social & Family History - Family History Family Medical History: Noncontributory - Tobacco Use Smoking Status *Q: Former Smoker Years of Tobacco use: 25 Packs/Tins Daily: 0.5 Month Tobacco Last Used: 20 years ago Second Hand Smoke Exposure: No - Caffeine Use Caffeine Use: Reports: Other Other Caffeine Use: unknown - Alcohol Use Alcohol Use History: Yes Days Per Week of Alcohol Use: 0 - Recreational Drug Use Recreational Drug Use: No Other Recreational Drug Type: UNABLE TO OBTAIN INFORMATION PT IS NOT VERBALLY RESPONSIVE AT THIS TIME - Living Situation & Occupation Living situation: Reports: , with Family Occupation: Employed ED ROS GENERAL - Review of Systems Review Of Systems: Unable To Obtain - Physical Exam Exam: See Below Exam Limited By: Physical Impairment General Appearance: WD/WN, Obtunded Eye Exam: Bilateral Eye: Other (Pupils fixed around 3 mm bilaterally. Negative doll's eyes.) Ears: Normal External Exam Nose: Normal Inspection Throat/Mouth: Normal Inspection, Normal Lips, Normal Teeth, Normal Gums, Normal Oropharynx Head Exam: Normocephalic Neck: Normal Inspection, Full Range of Motion Respiratory/Chest: No Accessory Muscle Use, Rhonchi Cardiovascular: Normal Peripheral Pulses, Regular Rate, Rhythm, No Gallop, No JVD, No Murmur, No Rub GI/Abdominal: Normal Bowel Sounds, Soft, No Organomegaly, No Abnormal Bruit, No Mass, Other (Obese) (Male) Exam: Deferred Rectal (Males) Exam: Deferred Neuro Exam (Abbreviated): Unresponsive Back Exam: Normal Inspection (when rolled off backboard) Extremities: Normal Inspection, Normal Range of Motion, Normal Capillary Refill Psychiatric: Other (Unable to assess) Skin Exam: Warm, Dry, Intact, Normal Color, No Rash EKG INTERPRETATION EKG Date: 05/31/17 Time: 22:36 Rhythm: NSR Rate (Beats/Min): 88 [place]: LAD-Left [place] Deviation P-Wave: Present (1st degree AVB) QRS: Normal ST-T: Normal QT: Normal Comparison: No Change (05/24/2017) Course - Vital Signs Last Recorded V/S: Last Vital Signs Temp Pulse 74 05/31/17 23:49 Resp 14 05/31/17 23:49 BP 101/55 L 05/31/17 23:49 Pulse Ox 98 05/31/17 23:49 - Orders/Labs/Meds Orders: Active Orders 24 hr Category Date Time Status EKG Documentation Completion [RC] STAT Care 05/31/17 22:34 Active RT Ventilator, Adult [RC] ASDIRECTED Care 05/31/17 22:55 Active Cervical Spine wo Cont [CT] Stat Exams 05/31/17 22:32 Taken Chest 1V Frontal [CR] Stat Exams 05/31/17 22:32 Taken Head wo Cont [CT] Stat Exams 05/31/17 22:31 Taken CULTURE BLOOD [BC] Stat Lab 05/31/17 22:59 Received CULTURE BLOOD [BC] Stat Lab 05/31/17 23:06 Received Propofol [Diprivan 100 ML] 100 ml Med 05/31/17 22:26 Active IV TITRATE Blood Culture x2 Reflex Set [OM.PC] Stat Oth 05/31/17 22:36 Ordered Desired Level of Sedation (RASS) [AST] Click To Edit Oth 05/31/17 23:39 Ordered NG [Nasogastric Orogastric Tube Insertion] [OM.PC] Oth 05/31/17 22:40 Ordered Routine Medication Orders Propofol (Diprivan 100 Ml) 100 mls @ 0 mls/hr IV TITRATE DHIRAJ; 50 MCG/KG/MIN PRN Reason: Protocol Last Admin: 05/31/17 22:26 Dose: 35.11 mcg/kg/min, 25.8 mls/hr Labs: Laboratory Tests 05/31/17 05/31/17 05/31/17 Range/Units 22:10 22:10 22:10 WBC 2.46 L* (4.23-9.07) K/mm3 RBC 2.77 L (4.63-6.08) M/mm3 Hgb 9.1 L (13.7-17.5) gm/L Hct 25.9 L (40.1-51.0) % MCV 93.5 H (79.0-92.2) fl MCH 32.9 H (25.7-32.2) pg MCHC 35.1 (32.2-35.5) g/dl RDW Std Deviation 56.6 H (35.1-43.9) fL Plt Count 42 L (163-337) K/mm3 MPV 10.3 (9.4-12.3) fl Neutrophils % (Manual) 68 H (40-60) % Band Neutrophils % 0 (0-10) % Lymphocytes % (Manual) 32 (20-40) % Atypical Lymphs % 0 % Monocytes % (Manual) 0 L (2-10) % Eosinophils % (Manual) 0 L (0.8-7.0) % Basophils % (Manual) 0 L (0.2-1.2) Platelet Estimate Marked dec Poikilocytosis 1+ slight Anisocytosis 2+ moderate Macrocytosis 1+ slight Ovalocytes 1+ slight RBC Morph Comment Not Reportable PT (8.0-13.0) SECONDS INR APTT (22-36) SECONDS D-Dimer, Quantitative (0.19-0.59) mg/L Puncture Site ABG pH (7.35-7.45) ABG pCO2 (35.0-45.0) mmHg ABG pO2 (80.0-100.0) mmHg ABG HCO3 (22.0-26.0) meq/L ABG O2 Saturation (96.0-97.0) % ABG Base Excess (-2-2.0) A-a Gradient mmHg O2 Delivery Device FiO2 (21.00-100.00) % Tidal Volume cc PEEP cmH20 Sodium 139 (136-145) mEq/L Potassium 4.5 (3.5-5.1) mEq/L Chloride 109 H (98-107) mEq/L Carbon Dioxide 22 (21-32) mEq/L Anion Gap 12.5 (5-15) BUN 12 (7-18) mg/dL Creatinine 0.9 (0.7-1.3) mg/dL Est Cr Clr Drug Dosing 98.20 mL/min Estimated GFR (MDRD) > 60 (>60) mL/min BUN/Creatinine Ratio 13.3 L (14-18) Glucose 169 H (74-106) mg/dL Lactic Acid 1.9 (0.4-2.0) mmol/L Calcium 8.7 (8.5-10.1) mg/dL Magnesium 1.6 L (1.8-2.4) mg/dl Total Bilirubin 2.3 H (0.2-1.0) mg/dL GGT 30 (15-85) U/L AST 32 (15-37) U/L ALT 27 (16-63) U/L Alkaline Phosphatase 77 (46-116) U/L Ammonia (11-32) umol/L Lactate Dehydrogenase 214 (85-227) U/L Creatine Kinase 107 (39-308) U/L Troponin I 0.020 (0.00-0.056) ng/mL Total Protein 6.8 (6.4-8.2) g/dl Albumin 2.0 L (3.4-5.0) g/dl Globulin 4.8 gm/dL Albumin/Globulin Ratio 0.4 L (1-2) TSH 3rd Generation 4.536 H (0.358-3.74) uIU/mL Urine Color (Yellow) Urine Appearance (Clear) Urine pH (5.0-8.0) Ur Specific [place] (1.005-1.030) Urine Protein (Negative) Urine Glucose (UA) (Negative) Urine Ketones (Negative) Urine Occult Blood (Negative) Urine Nitrite (Negative) Urine Bilirubin (Negative) Urine Urobilinogen (0.2-1.0) Ur Leukocyte Esterase (Negative) Urine RBC (0-5) /hpf Urine WBC (0-5) /hpf Ur Epithelial Cells (0-5) /hpf Urine Bacteria (FEW) /hpf Urine Mucus (FEW) /hpf Salicylates (2.8-20) mg/dL Urine Opiates Screen (NEGATIVE) Ur Buprenorphine Scrn (NEGATIVE) Ur Oxycodone Screen (NEGATIVE) Urine Methadone Screen (NEGATIVE) Ur Propoxyphene Screen (NEGATIVE) Acetaminophen 0 L (10-30) ug/mL Ur Barbiturates Screen (NEGATIVE) Ur Tricyclics Screen (NEGATIVE) Ur Phencyclidine Scrn (NEGATIVE) Ur Amphetamine Screen (NEGATIVE) U Methamphetamines Scrn (NEGATIVE) U Benzodiazepines Scrn (NEGATIVE) U Cocaine Metab Screen (NEGATIVE) U Marijuana (THC) Screen (NEGATIVE) Ethyl Alcohol 0.00 (0.00) gm% 05/31/17 05/31/17 05/31/17 Range/Units 22:10 22:10 22:10 WBC (4.23-9.07) K/mm3 RBC (4.63-6.08) M/mm3 Hgb (13.7-17.5) gm/L Hct (40.1-51.0) % MCV (79.0-92.2) fl MCH (25.7-32.2) pg MCHC (32.2-35.5) g/dl RDW Std Deviation (35.1-43.9) fL Plt Count (163-337) K/mm3 MPV (9.4-12.3) fl Neutrophils % (Manual) (40-60) % Band Neutrophils % (0-10) % Lymphocytes % (Manual) (20-40) % Atypical Lymphs % % Monocytes % (Manual) (2-10) % Eosinophils % (Manual) (0.8-7.0) % Basophils % (Manual) (0.2-1.2) Platelet Estimate Poikilocytosis Anisocytosis Macrocytosis Ovalocytes RBC Morph Comment PT 14.7 H (8.0-13.0) SECONDS INR 1.32 APTT 41 H (22-36) SECONDS D-Dimer, Quantitative 1.57 H (0.19-0.59) mg/L Puncture Site ABG pH (7.35-7.45) ABG pCO2 (35.0-45.0) mmHg ABG pO2 (80.0-100.0) mmHg ABG HCO3 (22.0-26.0) meq/L ABG O2 Saturation (96.0-97.0) % ABG Base Excess (-2-2.0) A-a Gradient mmHg O2 Delivery Device FiO2 (21.00-100.00) % Tidal Volume cc PEEP cmH20 Sodium (136-145) mEq/L Potassium (3.5-5.1) mEq/L Chloride (98-107) mEq/L Carbon Dioxide (21-32) mEq/L Anion Gap (5-15) BUN (7-18) mg/dL Creatinine (0.7-1.3) mg/dL Est Cr Clr Drug Dosing mL/min Estimated GFR (MDRD) (>60) mL/min BUN/Creatinine Ratio (14-18) Glucose (74-106) mg/dL Lactic Acid (0.4-2.0) mmol/L Calcium (8.5-10.1) mg/dL Magnesium (1.8-2.4) mg/dl Total Bilirubin (0.2-1.0) mg/dL GGT (15-85) U/L AST (15-37) U/L ALT (16-63) U/L Alkaline Phosphatase (46-116) U/L Ammonia (11-32) umol/L Lactate Dehydrogenase (85-227) U/L Creatine Kinase (39-308) U/L Troponin I (0.00-0.056) ng/mL Total Protein (6.4-8.2) g/dl Albumin (3.4-5.0) g/dl Globulin gm/dL Albumin/Globulin Ratio (1-2) TSH 3rd Generation (0.358-3.74) uIU/mL Urine Color (Yellow) Urine Appearance (Clear) Urine pH (5.0-8.0) Ur Specific [place] (1.005-1.030) Urine Protein (Negative) Urine Glucose (UA) (Negative) Urine Ketones (Negative) Urine Occult Blood (Negative) Urine Nitrite (Negative) Urine Bilirubin (Negative) Urine Urobilinogen (0.2-1.0) Ur Leukocyte Esterase (Negative) Urine RBC (0-5) /hpf Urine WBC (0-5) /hpf Ur Epithelial Cells (0-5) /hpf Urine Bacteria (FEW) /hpf Urine Mucus (FEW) /hpf Salicylates < 0.2 L (2.8-20) mg/dL Urine Opiates Screen (NEGATIVE) Ur Buprenorphine Scrn (NEGATIVE) Ur Oxycodone Screen (NEGATIVE) Urine Methadone Screen (NEGATIVE) Ur Propoxyphene Screen (NEGATIVE) Acetaminophen (10-30) ug/mL Ur Barbiturates Screen (NEGATIVE) Ur Tricyclics Screen (NEGATIVE) Ur Phencyclidine Scrn (NEGATIVE) Ur Amphetamine Screen (NEGATIVE) U Methamphetamines Scrn (NEGATIVE) U Benzodiazepines Scrn (NEGATIVE) U Cocaine Metab Screen (NEGATIVE) U Marijuana (THC) Screen (NEGATIVE) Ethyl Alcohol (0.00) gm% 05/31/17 05/31/17 05/31/17 Range/Units 22:10 22:29 22:29 WBC (4.23-9.07) K/mm3 RBC (4.63-6.08) M/mm3 Hgb (13.7-17.5) gm/L Hct (40.1-51.0) % MCV (79.0-92.2) fl MCH (25.7-32.2) pg MCHC (32.2-35.5) g/dl RDW Std Deviation (35.1-43.9) fL Plt Count (163-337) K/mm3 MPV (9.4-12.3) fl Neutrophils % (Manual) (40-60) % Band Neutrophils % (0-10) % Lymphocytes % (Manual) (20-40) % Atypical Lymphs % % Monocytes % (Manual) (2-10) % Eosinophils % (Manual) (0.8-7.0) % Basophils % (Manual) (0.2-1.2) Platelet Estimate Poikilocytosis Anisocytosis Macrocytosis Ovalocytes RBC Morph Comment PT (8.0-13.0) SECONDS INR APTT (22-36) SECONDS D-Dimer, Quantitative (0.19-0.59) mg/L Puncture Site ABG pH (7.35-7.45) ABG pCO2 (35.0-45.0) mmHg ABG pO2 (80.0-100.0) mmHg ABG HCO3 (22.0-26.0) meq/L ABG O2 Saturation (96.0-97.0) % ABG Base Excess (-2-2.0) A-a Gradient mmHg O2 Delivery Device FiO2 (21.00-100.00) % Tidal Volume cc PEEP cmH20 Sodium (136-145) mEq/L Potassium (3.5-5.1) mEq/L Chloride (98-107) mEq/L Carbon Dioxide (21-32) mEq/L Anion Gap (5-15) BUN (7-18) mg/dL Creatinine (0.7-1.3) mg/dL Est Cr Clr Drug Dosing mL/min Estimated GFR (MDRD) (>60) mL/min BUN/Creatinine Ratio (14-18) Glucose (74-106) mg/dL Lactic Acid (0.4-2.0) mmol/L Calcium (8.5-10.1) mg/dL Magnesium (1.8-2.4) mg/dl Total Bilirubin (0.2-1.0) mg/dL GGT (15-85) U/L AST (15-37) U/L ALT (16-63) U/L Alkaline Phosphatase (46-116) U/L Ammonia 167 H (11-32) umol/L Lactate Dehydrogenase (85-227) U/L Creatine Kinase (39-308) U/L Troponin I (0.00-0.056) ng/mL Total Protein (6.4-8.2) g/dl Albumin (3.4-5.0) g/dl Globulin gm/dL Albumin/Globulin Ratio (1-2) TSH 3rd Generation (0.358-3.74) uIU/mL Urine Color Yellow (Yellow) Urine Appearance Clear (Clear) Urine pH 7.5 (5.0-8.0) Ur Specific [place] 1.020 (1.005-1.030) Urine Protein Negative (Negative) Urine Glucose (UA) Negative (Negative) Urine Ketones Negative (Negative) Urine Occult Blood Trace-lysed H (Negative) Urine Nitrite Negative (Negative) Urine Bilirubin Negative (Negative) Urine Urobilinogen >=8.0 H (0.2-1.0) Ur Leukocyte Esterase Trace H (Negative) Urine RBC 5-10 H (0-5) /hpf Urine WBC 5-10 H (0-5) /hpf Ur Epithelial Cells 5-10 H (0-5) /hpf Urine Bacteria Few (FEW) /hpf Urine Mucus Moderate H (FEW) /hpf Salicylates (2.8-20) mg/dL Urine Opiates Screen Negative (NEGATIVE) Ur Buprenorphine Scrn Negative (NEGATIVE) Ur Oxycodone Screen Negative (NEGATIVE) Urine Methadone Screen Negative (NEGATIVE) Ur Propoxyphene Screen Negative (NEGATIVE) Acetaminophen (10-30) ug/mL Ur Barbiturates Screen Negative (NEGATIVE) Ur Tricyclics Screen Negative (NEGATIVE) Ur Phencyclidine Scrn Negative (NEGATIVE) Ur Amphetamine Screen Negative (NEGATIVE) U Methamphetamines Scrn Negative (NEGATIVE) U Benzodiazepines Scrn Presumptive positive H (NEGATIVE) U Cocaine Metab Screen Negative (NEGATIVE) U Marijuana (THC) Screen Negative (NEGATIVE) Ethyl Alcohol (0.00) gm% 05/31/17 Range/Units 23:15 WBC (4.23-9.07) K/mm3 RBC (4.63-6.08) M/mm3 Hgb (13.7-17.5) gm/L Hct (40.1-51.0) % MCV (79.0-92.2) fl MCH (25.7-32.2) pg MCHC (32.2-35.5) g/dl RDW Std Deviation (35.1-43.9) fL Plt Count (163-337) K/mm3 MPV (9.4-12.3) fl Neutrophils % (Manual) (40-60) % Band Neutrophils % (0-10) % Lymphocytes % (Manual) (20-40) % Atypical Lymphs % % Monocytes % (Manual) (2-10) % Eosinophils % (Manual) (0.8-7.0) % Basophils % (Manual) (0.2-1.2) Platelet Estimate Poikilocytosis Anisocytosis Macrocytosis Ovalocytes RBC Morph Comment PT (8.0-13.0) SECONDS INR APTT (22-36) SECONDS D-Dimer, Quantitative (0.19-0.59) mg/L Puncture Site Lt radial ABG pH 7.37 (7.35-7.45) ABG pCO2 35.4 (35.0-45.0) mmHg ABG pO2 73.0 L (80.0-100.0) mmHg ABG HCO3 20.2 L (22.0-26.0) meq/L ABG O2 Saturation 94.7 L (96.0-97.0) % ABG Base Excess -4.0 L (-2-2.0) A-a Gradient 17 mmHg O2 Delivery Device Ventilator FiO2 21.00 (21.00-100.00) % Tidal Volume 500.0 cc PEEP 5.0 cmH20 Sodium (136-145) mEq/L Potassium (3.5-5.1) mEq/L Chloride (98-107) mEq/L Carbon Dioxide (21-32) mEq/L Anion Gap (5-15) BUN (7-18) mg/dL Creatinine (0.7-1.3) mg/dL Est Cr Clr Drug Dosing mL/min Estimated GFR (MDRD) (>60) mL/min BUN/Creatinine Ratio (14-18) Glucose (74-106) mg/dL Lactic Acid (0.4-2.0) mmol/L Calcium (8.5-10.1) mg/dL Magnesium (1.8-2.4) mg/dl Total Bilirubin (0.2-1.0) mg/dL GGT (15-85) U/L AST (15-37) U/L ALT (16-63) U/L Alkaline Phosphatase (46-116) U/L Ammonia (11-32) umol/L Lactate Dehydrogenase (85-227) U/L Creatine Kinase (39-308) U/L Troponin I (0.00-0.056) ng/mL Total Protein (6.4-8.2) g/dl Albumin (3.4-5.0) g/dl Globulin gm/dL Albumin/Globulin Ratio (1-2) TSH 3rd Generation (0.358-3.74) uIU/mL Urine Color (Yellow) Urine Appearance (Clear) Urine pH (5.0-8.0) Ur Specific [place] (1.005-1.030) Urine Protein (Negative) Urine Glucose (UA) (Negative) Urine Ketones (Negative) Urine Occult Blood (Negative) Urine Nitrite (Negative) Urine Bilirubin (Negative) Urine Urobilinogen (0.2-1.0) Ur Leukocyte Esterase (Negative) Urine RBC (0-5) /hpf Urine WBC (0-5) /hpf Ur Epithelial Cells (0-5) /hpf Urine Bacteria (FEW) /hpf Urine Mucus (FEW) /hpf Salicylates (2.8-20) mg/dL Urine Opiates Screen (NEGATIVE) Ur Buprenorphine Scrn (NEGATIVE) Ur Oxycodone Screen (NEGATIVE) Urine Methadone Screen (NEGATIVE) Ur Propoxyphene Screen (NEGATIVE) Acetaminophen (10-30) ug/mL Ur Barbiturates Screen (NEGATIVE) Ur Tricyclics Screen (NEGATIVE) Ur Phencyclidine Scrn (NEGATIVE) Ur Amphetamine Screen (NEGATIVE) U Methamphetamines Scrn (NEGATIVE) U Benzodiazepines Scrn (NEGATIVE) U Cocaine Metab Screen (NEGATIVE) U Marijuana (THC) Screen (NEGATIVE) Ethyl Alcohol (0.00) gm% Meds: Medications Generic Name Dose Route Start Last Admin Trade Name Freq PRN Reason Stop Dose Admin Propofol 100 mls @ 0 mls/hr 05/31/17 22:26 05/31/17 22:26 Diprivan 100 Ml IV 35.11 mcg/kg/min TITRATE DHIRAJ 25.8 mls/hr Protocol Administration 50 MCG/KG/MIN Discontinued Medications Generic Name Dose Route Start Last Admin Trade Name Lavern PRN Reason Stop Dose Admin Furosemide 40 mg 05/31/17 23:15 05/31/17 23:43 Lasix IVPUSH 05/31/17 23:16 40 mg NOW ONE Administration Propofol Confirm 05/31/17 22:24 05/31/17 23:40 Diprivan 100 Ml Administered 05/31/17 22:25 Not Given Dose 100 mls @ as directed .ROUTE .STK-MED ONE Lactulose 30 gm 06/01/17 00:42 Cephulac PO 06/01/17 00:43 ONETIME STA Propofol 40 mg 05/31/17 22:21 05/31/17 22:21 Diprivan 20 Ml IVPUSH 05/31/17 22:22 40 mg ONETIME ONE Administration - Re-Assessments/Exams Free Text/Narrative Re-Assessment/Exam: 05/31/17 22:50 Portable chest radiograph reviewed. There appears to be cardiomegaly with bilateral pulmonary vascular congestion, consistent with decompensated CHF. No pleural effusions. No distinct focal infiltrate seen, but cannot be ruled out. No pneumothorax. Tip of endotracheal tube approximately 2 cm above the latasha. NG tube tip seen in the stomach via the esophagus. Formal read per the Radiologist pending. 05/31/17 23:06 CT of the head without contrast is read by [facility] as "No acute intracranial process. Small left frontal cephal hematoma, correlate clinically. Ethmoid sinus disease." CT of the cervical spine without contrast is read by [facility] as "Multilevel spondylitic changes. No acute fracture. Endotracheal tube and nasogastric tubes are present. 05/31/17 23:49 Due to apparent pulmonary vascular congestion on the chest radiograph, the patient has been given 40 mg IV Lasix. The patient is found to have pancytopenia with a WBC count of 2.46, H/H of 9.1/ 25.9, and platelets 42. These are within the patient's baseline values. His ammonia level is substantially elevated 167, Mg mildly depressed at 1.6, total bilirubin elevated at 2.3. His TSH is elevated at 4.536. His d-dimer is elevated at 1.57, however, given his liver failure, I believe this is within normal limits, and I do not clinically suspect a pulmonary embolus. The patient' s urine drug screen is positive for benzodiazepines, however, as per the HPI, he was given Versed en route. The patient's post-intubation ABG appears adequate, and I am not recommending any changes in his ventilator settings at this time. The remainder of the patient's workup is unremarkable. 06/01/17 00:[address] Nuno at 23:53. She is recommending that we transfer the patient to [facility], citing that the patient will likely develop aspiration ammonia, be admitted for greater than 96 hours, the benefit of seeing a Robot Operator, and consideration for liver transplant. She states that the patient's research associate professor is Dr. Hernandez, at [facility]. 06/01/17 00:[address] Durham, [facility] at [facility], at 00:45 MDT. He accepts the patient for direct admission. We will send the patient by helicopter. Departure - Departure Time of Disposition: 00:53 Disposition: DC/Tfer to [facility] 02 Condition: Fair Clinical Impression: Hepatic encephalopathy, Respiratory failure - Discharge Information Referrals: PCP,Unknown [Ordering Only Provider] - Forms: ED Department Discharge - My Orders Last 24 Hours: My Active Orders 05/31/17 22:26 Propofol [Diprivan 100 ML] 100 ml IV TITRATE 05/31/17 22:31 Head wo Cont [CT] Stat 05/31/17 22:32 Cervical Spine wo Cont [CT] Stat Chest 1V Frontal [CR] Stat 05/31/17 22:34 EKG Documentation Completion [RC] STAT 05/31/17 22:36 Blood Culture x2 Reflex Set [OM.PC] Stat 05/31/17 22:40 NG [Nasogastric Orogastric Tube Insertion] [OM.PC] Routine 05/31/17 22:55 RT Ventilator, Adult [RC] ASDIRECTED 05/31/17 22:59 CULTURE BLOOD [BC] Stat 05/31/17 23:06 CULTURE BLOOD [BC] Stat 05/31/17 23:39 Desired Level of Sedation (RASS) [AST] Click To Edit - Assessment/Plan Last 24 Hours: My Active Orders 05/31/17 22:26 Propofol [Diprivan 100 ML] 100 ml IV TITRATE 05/31/17 22:31 Head wo Cont [CT] Stat 05/31/17 22:32 Cervical Spine wo Cont [CT] Stat Chest 1V Frontal [CR] Stat 05/31/17 22:34 EKG Documentation Completion [RC] STAT 05/31/17 22:36 Blood Culture x2 Reflex Set [OM.PC] Stat 05/31/17 22:40 NG [Nasogastric Orogastric Tube Insertion] [OM.PC] Routine 05/31/17 22:55 RT Ventilator, Adult [RC] ASDIRECTED 05/31/17 22:59 CULTURE BLOOD [BC] Stat 05/31/17 23:06 CULTURE BLOOD [BC] Stat 05/31/17 23:39 Desired Level of Sedation (RASS) [AST] Click To Edit
[2017-05-31 23:17] LABS: ACETAMINOPHEN 0 ug/mL (10-30)
[2017-05-31 23:51] VITALS: BP 101/55
[2017-06-01] MEDS ORDERED: Lactulose Soln 10 GM/15 ML 30 ML UD Cup PO STA (00:42)
--- NOTE | 2017-06-02 17:12 | CT ---
CT cervical spine Technique: Multiple axial sections were obtained from above C1 inferiorly through T1. Reconstructed sagittal and coronal images were reviewed. Comparison: No prior cervical spine study. Findings: Slight degenerative change is noted between the dens and anterior arch of C1. Mild anterior osteophytes are noted at C4-C5, C5-C6, C6-C7 and C7-T1. Mild degenerative change is seen within the uncovertebral joints throughout the cervical spine. Mild vacuum phenomena is noted within the L4-L5 disc compatible with degenerative change. Visualized mastoid sinuses and middle ear cavities are clear. Posterior skull base is intact. Vertebral bodies and posterior arches are intact with no fracture being seen. No abnormal subluxation is seen on the reconstructed sagittal images. Mild kyphosis is seen of the cervical spine most likely due to positioning. No bony central or bony neural foraminal stenosis is seen. Slight scarring is noted within the right lung base. Endotracheal tube and nasogastric tube are partially seen. Impression: 1. Degenerative change as noted above. 2. Nothing acute is appreciated on CT study of the cervical spine. Diagnostic code #2 I agree with preliminary report issued by [facility] ([facility] preliminary report dictated on 06/01/17, 12:03 AM Central Time)
--- NOTE | 2017-06-02 17:12 | CT ---
Head CT Technique: Multiple axial sections through the brain were obtained. Intravenous contrast was not utilized. Comparison: Prior head CT exam of 05/24/17. Findings: Ventricles along with basal cisterns and sulci over the convexities are within normal limits for the patient's age. No abnormal parenchymal densities are seen. No evidence of intracranial hemorrhage. No midline shift or mass effect is seen. Bone window settings were reviewed which show minimal mucosal thickening within the ethmoid and frontal sinuses and left maxillary sinus which is felt to be incidental. No acute calvarial abnormality is seen. Small scalp hematoma is seen within the left frontal region. Impression: 1. Sinus findings which are felt to be incidental. 2. Small scalp hematoma appears to be present within the left frontal region. 3. No acute intracranial abnormality is identified. Diagnostic code #2 I agree with preliminary report issued by [facility] ([facility] preliminary report dictated on 06/01/17, 12:02 AM Central Time)
--- NOTE | 2017-06-02 17:12 | CR ---
Chest: Portable view of the chest was obtained. Comparison: Previous chest x-ray of 05/11/17. Increasing lung markings from prior study. Endotracheal tube is seen with tip lying at the lower level of the clavicles. Nasogastric tube is seen within the stomach. Heart size at the upper limits of normal. Widened mediastinum is seen most likely representing supine technique. Impression: 1. Increased lung markings possibly due to pulmonary vascular congestion. Differential also includes severe bronchitis. 2. Satisfactory position of endotracheal tube and nasogastric tube. Diagnostic code #3
== END 2017-06-01 01:57 ==
LOC: JD.ED 22:13
DX: K72.90 Hepatic failure, unspecified without coma (principal); J96.90 Respiratory failure, unspecified, unspecified whether with hypoxia or hypercapnia; I10 Essential (primary) hypertension; K21.9 Gastro-esophageal reflux disease without esophagitis; E11.9 Type 2 diabetes mellitus without complications; E03.9 Hypothyroidism, unspecified; E66.9 Obesity, unspecified; Z87.891 Personal history of nicotine dependence; Z79.899 Other long term (current) drug therapy
CPT/HCPCS: 31500; 36415; 36600; 51702; 70450; 71010; 72125; 80053; 80306; 81001; 82140; 82550; 82803; 82977; 83605; 83615; 83735; 84443; 84484; 85025; 85379; 85610; 85730; 87040; 93005; 96365; 96366; 96374; 96376; 99291; A9270; G0480; J1940; 93010; J2704; J3490

== ENCOUNTER 2017-11-14 13:48 | Inpatient (IN) | payer BC ==
[2017-11-14] MEDS ORDERED: Sodium Chloride 0.9% 10 ML Syringe FLUSH PRN (14:05)
[2017-11-14] MEDS ORDERED: Sodium Chloride 0.9% 500 ML IV ONE (14:19)
[2017-11-14] MEDS ORDERED: Lactulose Soln 10 GM/15 ML 30 ML UD Cup PO ONE ×2 (14:22→18:25)
--- NOTE | 2017-11-14 15:16 | CR ---
Chest: Portable view of the chest was obtained. Comparison: Prior chest x-ray of 05/31/17 Heart is slightly enlarged. Tortuous thoracic aorta is seen. Minimal pulmonary vascular congestion is seen which may be chronic. Stent is seen along the right side of the heart. Bony structures are grossly intact. Impression: 1. Cardiomegaly with possible mild chronic pulmonary vascular congestion. 2. Stable stent along the right side of the heart. Diagnostic code #2
--- NOTE | 2017-11-14 16:17 | EDM.PDOC ---
ED HPI GENERAL MEDICAL PROBLEM - General Chief Complaint: Neurological Problem Stated Complaint: [facility] Time Seen by Provider: 11/14/17 14:03 Source of Information: Reports: Patient, RN Notes Reviewed - History of Present Illness INITIAL COMMENTS - FREE TEXT/NARRATIVE: 57-year-old male has been brought in by [facility] with altered mental status in the form of lethargy, confusion, generalized weakness. He does have history of prior episodes of hepatic encephalopathy from long-standing liver disease. Family believes that this is occurring again and therefore has had him brought here for further evaluation treatment. On arrival patient does open eyes when asked questions but does seem to be somewhat confused, not able to give a reliable history. He does deny headache chest abdominal or any other discomfort. There is no report that he is been vomiting. We do not know when he may have taken his last dose of lactulose or how many doses he may have missed as he became progressively more ill. - Related Data Allergies Allergy/AdvReac Type Severity Reaction Status Date / Time No Known Allergies Allergy Verified 05/31/17 22:52 Home Meds: Home Meds Cholecalciferol (Vitamin D3) [Vitamin D3] 2,000 unit PO DAILY 11/14/17 [History] Lactulose 40 gm PO TID 11/14/17 [History] Pantoprazole [ProTONIX] 40 mg PO DAILY 11/14/17 [History] Rifaximin [Xifaxan] 550 mg PO BID 11/14/17 [History] Spironolactone 50 mg PO BID 11/14/17 [History] Past Medical History Cardiovascular History: Reports: Hypertension Other Cardiovascular History: UNABLE TO OBTAIN INFORMATION PT IS NOT VERBALLY RESPONSIVE AT THIS TIME Respiratory History: Reports: SOB Other Respiratory History: UNABLE TO OBTAIN INFORMATION PT IS NOT VERBALLY RESPONSIVE AT THIS TIME Gastrointestinal History: Reports: Cirrhosis, GERD, GI Bleed Other Gastrointestinal History: liver failure;stomach bleed. UNABLE TO OBTAIN INFORMATION PT IS NOT VERBALLY RESPONSIVE AT THIS TIME Genitourinary History: Reports: Other (See Below) Other Genitourinary History: UNABLE TO OBTAIN INFORMATION PT IS NOT VERBALLY RESPONSIVE AT THIS TIME Other Musculoskeletal History: UNABLE TO OBTAIN INFORMATION PT IS NOT VERBALLY RESPONSIVE AT THIS TIME Neurological History: Reports: Other (See Below) Other Neuro History: hepatic encephalopathy Psychiatric History: Reports: Addiction Other Psychiatric History: recovered alcoholic. UNABLE TO OBTAIN INFORMATION PT IS NOT VERBALLY RESPONSIVE AT THIS TIME Endocrine/Metabolic History: Reports: Diabetes, Type II, Hypothyroidism, Obesity /BMI 30+ Hematologic History: Reports: Anemia, Blood Transfusion(s) Other Hematologic History: UNABLE TO OBTAIN INFORMATION PT IS NOT VERBALLY RESPONSIVE AT THIS TIME Other Oncologic History: UNABLE TO OBTAIN INFORMATION PT IS NOT VERBALLY RESPONSIVE AT THIS TIME Dermatologic History: Reports: Cellulitis, Eczema Other Dermatologic History: 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 History of cellulitis to both legs. UNABLE TO OBTAIN INFORMATION PT IS NOT VERBALLY RESPONSIVE AT THIS TIME - Infectious Disease History Infectious Disease History: Reports: Hepatitis non A,B,C, Measles, MRSA - Past Surgical History GI Surgical History: Reports: Other (See Below) (TIPS procedure) Social & Family History - Family History Family Medical History: Noncontributory - Tobacco Use Smoking Status *Q: Unknown Ever Smoked Years of Tobacco use: 25 Packs/Tins Daily: 0.5 Used Tobacco, but Quit: Yes Month/Year Tobacco Last Used: 20 years ago Second Hand Smoke Exposure: No - Caffeine Use Caffeine Use: Reports: Other Other Caffeine Use: unable to obtain Caffeine Use Comment: unable to obtain, patient unresponsive - Alcohol Use Days Per Week of Alcohol Use: 0 - Recreational Drug Use Recreational Drug Use: No Other Recreational Drug Type: unable to obtain - Living Situation & Occupation Living situation: Reports: , with Family Occupation: Employed ED ROS GENERAL - Review of Systems Review Of Systems: Unable To Obtain (Due to patient's altered mental status on arrival to ED, moderate lethargy and confusion) Constitutional: Reports: Fever - Physical Exam Exam: See Below General Appearance: Other (Moderately sleepy, arousable) Eye Exam: Bilateral Eye: PERRL Nose: Normal Inspection Throat/Mouth: Normal Inspection, Other (Oral mucosa is somewhat dry, no intraoral injury) Head Exam: Atraumatic Neck: Supple, Full Range of Motion Respiratory/Chest: No Respiratory Distress, Lungs Clear, Normal Breath Sounds Cardiovascular: Regular Rate, Rhythm GI/Abdominal: Soft, Non-Tender, Other (Moderately obese). No: Guarding Neuro Exam (Abbreviated): No Motor/Sensory Deficits, Confused (Mild), Slow to Respond, Other (Moderately sleepy but arousable to voice, does try answer simple questions but is mild to moderately confused) Back Exam: No: CVA Tenderness (L), CVA Tenderness (R) Extremities: Normal Inspection, Pedal Edema. No: Leg Pain (Mild bilateral), Increased Warmth Skin Exam: Warm, Dry, No Rash Course - Vital Signs Last Recorded V/S: Last Vital Signs Temp 99.4 F 11/14/17 13:55 Pulse 93 11/14/17 13:55 Resp 18 11/14/17 13:55 BP 109/63 11/14/17 13:55 Pulse Ox 98 11/14/17 13:55 - Orders/Labs/Meds Orders: Active Orders 24 hr Category Date Time Status EKG 12 Lead [EKG Documentation Completion] [] STAT Care 11/14/17 14:05 Active Peripheral IV Care [] . DIRECTED Care 11/14/17 14:05 Active Sodium Chloride 0.9% [Saline Flush] Med 11/14/17 14:05 Active 10 ml FLUSH ASDIRECTED PRN Peripheral IV Insertion Adult [OM.PC] Stat Oth 11/14/17 14:05 Ordered Medication Orders Sodium Chloride (Saline Flush) 10 ml FLUSH ASDIRECTED PRN PRN Reason: Keep Vein Open Last Admin: 11/14/17 14:19 Dose: 10 ml Labs: Laboratory Tests 11/14/17 11/14/17 11/14/17 Range/Units 14:05 14:05 14:05 WBC 2.90 L (4.23-9.07) K/mm3 RBC 3.27 L (4.63-6.08) M/mm3 Hgb 10.5 L (13.7-17.5) gm/L Hct 29.5 L (40.1-51.0) % MCV 90.2 (79.0-92.2) fl MCH 32.1 (25.7-32.2) pg MCHC 35.6 H (32.2-35.5) g/dl RDW Std Deviation 52.1 H (35.1-43.9) fL Plt Count 44 L (163-337) K/mm3 MPV 10.0 (9.4-12.3) fl Neutrophils % (Manual) 68 H (40-60) % Band Neutrophils % 0 (0-10) % Lymphocytes % (Manual) 24 (20-40) % Atypical Lymphs % 0 % Monocytes % (Manual) 5 (2-10) % Eosinophils % (Manual) 2 (0.8-7.0) % Basophils % (Manual) 1 (0.2-1.2) Platelet Estimate Marked dec Plt Morphology Comment Normal Anisocytosis 1+ slight Ovalocytes 1+ slight RBC Morph Comment Not Reportable PT 13.6 H (8.0-13.0) SECONDS INR 1.27 Sodium 140 (136-145) mEq/L Potassium 4.7 (3.5-5.1) mEq/L Chloride 108 H (98-107) mEq/L Carbon Dioxide 22 (21-32) mEq/L Anion Gap 14.7 (5-15) BUN 13 (7-18) mg/dL Creatinine 0.9 (0.7-1.3) mg/dL Est Cr Clr Drug Dosing 98.20 mL/min Estimated GFR (MDRD) > 60 (>60) mL/min BUN/Creatinine Ratio 14.4 (14-18) Glucose 238 H (74-106) mg/dL Lactic Acid (0.4-2.0) mmol/L Calcium 9.3 (8.5-10.1) mg/dL Magnesium (1.8-2.4) mg/dl Total Bilirubin 2.3 H (0.2-1.0) mg/dL AST 30 (15-37) U/L ALT 25 (16-63) U/L Alkaline Phosphatase 79 (46-116) U/L Ammonia (11-32) umol/L Total Protein 6.8 (6.4-8.2) g/dl Albumin 2.1 L (3.4-5.0) g/dl Globulin 4.7 gm/dL Albumin/Globulin Ratio 0.5 L (1-2) Ethyl Alcohol 0.00 (0.00) gm% 11/14/17 11/14/17 11/14/17 Range/Units 14:05 14:05 14:30 WBC (4.23-9.07) K/mm3 RBC (4.63-6.08) M/mm3 Hgb (13.7-17.5) gm/L Hct (40.1-51.0) % MCV (79.0-92.2) fl MCH (25.7-32.2) pg MCHC (32.2-35.5) g/dl RDW Std Deviation (35.1-43.9) fL Plt Count (163-337) K/mm3 MPV (9.4-12.3) fl Neutrophils % (Manual) (40-60) % Band Neutrophils % (0-10) % Lymphocytes % (Manual) (20-40) % Atypical Lymphs % % Monocytes % (Manual) (2-10) % Eosinophils % (Manual) (0.8-7.0) % Basophils % (Manual) (0.2-1.2) Platelet Estimate Plt Morphology Comment Anisocytosis Ovalocytes RBC Morph Comment PT (8.0-13.0) SECONDS INR Sodium (136-145) mEq/L Potassium (3.5-5.1) mEq/L Chloride (98-107) mEq/L Carbon Dioxide (21-32) mEq/L Anion Gap (5-15) BUN (7-18) mg/dL Creatinine (0.7-1.3) mg/dL Est Cr Clr Drug Dosing mL/min Estimated GFR (MDRD) (>60) mL/min BUN/Creatinine Ratio (14-18) Glucose (74-106) mg/dL Lactic Acid 1.4 (0.4-2.0) mmol/L Calcium (8.5-10.1) mg/dL Magnesium 1.2 L (1.8-2.4) mg/dl Total Bilirubin (0.2-1.0) mg/dL AST (15-37) U/L ALT (16-63) U/L Alkaline Phosphatase (46-116) U/L Ammonia 126 H (11-32) umol/L Total Protein (6.4-8.2) g/dl Albumin (3.4-5.0) g/dl Globulin gm/dL Albumin/Globulin Ratio (1-2) Ethyl Alcohol (0.00) gm% Meds: Medications Generic Name Dose Route Start Last Admin Trade Name Freq PRN Reason Stop Dose Admin Sodium Chloride 10 ml 11/14/17 14:05 11/14/17 14:19 Saline Flush FLUSH 10 ml ASDIRECTED PRN Administration Keep Vein Open Discontinued Medications Generic Name Dose Route Start Last Admin Trade Name Freq PRN Reason Stop Dose Admin Sodium Chloride 500 mls @ 999 mls/hr 11/14/17 14:19 11/14/17 14:28 Normal Saline IV 11/14/17 14:49 999 mls/hr .BOLUS ONE Administration Lactulose 40 gm 11/14/17 14:22 11/14/17 14:42 Cephulac PO 11/14/17 14:23 40 gm ONETIME ONE Administration - Re-Assessments/Exams Free Text/Narrative Re-Assessment/Exam: 11/14/17 16:34 Serum ammonia did come back elevated at 126. Patient does appear moderately dry , have been giving some cautious IV fluid. Other labs are as documented. Vitals remained stable. He was able to take an oral dose of lactulose for us. He is not well enough to go home but not as seriously ill as he has been on other occasions. Patient will be admitted for further treatment. Departure - Departure Time of Disposition: 16:25 Disposition: Admitted As Inpatient 65 Condition: Fair Clinical Impression: Hepatic encephalopathy - Discharge Information Forms: ED Department Discharge ED Communication - Discussed Case With (1) Discussed Case With (1): Admitting Provider (Dr Candelario, decision to admit at about 1625) - My Orders Last 24 Hours: My Active Orders 11/14/17 14:05 EKG 12 Lead [EKG Documentation Completion] [RC] STAT Peripheral IV Care [RC] . DIRECTED Sodium Chloride 0.9% [Saline Flush] 10 ml FLUSH ASDIRECTED PRN Peripheral IV Insertion Adult [OM.PC] Stat - Assessment/Plan Last 24 Hours: My Active Orders 11/14/17 14:05 EKG 12 Lead [EKG Documentation Completion] [RC] STAT Peripheral IV Care [RC] . DIRECTED Sodium Chloride 0.9% [Saline Flush] 10 ml FLUSH ASDIRECTED PRN Peripheral IV Insertion Adult [OM.PC] Stat
[2017-11-14] MEDS ORDERED: Metoprolol Tartrate 5 MG/5 ML SDV IVPUSH PRN (17:26)
[2017-11-14] MEDS ORDERED: LORazepam 2 MG/ML SDV IVPUSH PRN (17:26)
[2017-11-14] MEDS ORDERED: hydrALAZINE 20 MG/ML SDV IVPUSH PRN (17:26)
[2017-11-14] MEDS ORDERED: Promethazine 12.5 MG in Sodium Chloride 0.9% 50 ML IV PRN (17:32)
[2017-11-14] MEDS ORDERED: Acetaminophen 325 MG Tab PO PRN (17:32)
[2017-11-14] MEDS ORDERED: HYDROmorphone 0.5 MG/0.5 ML SYRINGE IVPUSH PRN (17:32)
[2017-11-14] MEDS ORDERED: LORazepam 2 MG/ML SDV IV PRN (17:32)
[2017-11-14] MEDS ORDERED: Ondansetron 4 MG/2 ML SDV IV PRN (17:32)
[2017-11-14] MEDS ORDERED: oxyCODONE 5 MG Tab PO PRN (17:32)
[2017-11-14] MEDS ORDERED: Albuterol/Ipratropium 3.0-0.5 MG/3 ML Neb Soln NEB PRN (17:32)
[2017-11-14] MEDS ORDERED: Temazepam 15 MG Cap PO PRN (17:32)
[2017-11-14] MEDS: Magnesium Sulfate/Water 2 GM in Premix Bag 1 BAG IV SCH ×2 (18:42→19:40)
[2017-11-14] MEDS ORDERED: 50% Dextrose in Water 50 ML Syringe IVPUSH PRN (18:49)
--- NOTE | 2017-11-14 19:09 | PCM.HP ---
H&P History of Present Illness - General Date of Service: 11/14/17 Admit Problem/Dx: Admission Diagnosis/Problem Admission Diagnosis/Problem Hepatic encephalopathy Source of Information: Patient, Old Records, Provider, RN History Limitations: Reports: Altered Mental Status - History of Present Illness Initial Comments - Free Text/Narative: This is a 57 yo male with past medical h/o significant hepatic disease who comes in via ambulance d/t altered mental status. Patient is well known to the hospitalist team due to multiple admissions related to hepatic encephalopathy. Per daughter, she went out of town and forgot to give him his Lactulose medication x 2 days. Currently he complains of feeling chills and has some general stomach pain which he rates 4 out of 10. He reports no fever, headache, nausea, vomiting, diarrhea, chest pain, shortness of breath, or GI/ complaints. His symptoms improved after after getting Lactulose in the emergency department. His initial workup in the ED shows a CBC remarkable for WBC of 2.9, RBC 3.27, Hgb 10.5, Hct 29.5, MCHC of 35.6, RDW 52.1, Plt 44, neutrophils of 68% . His coagulation study shows PT of 13.6, INR of 1.27, APTT is 42. His chemistry is remarkable for chloride of 108, Glucose of 238, Magnesium1.2, total bilirubin of 2.3, Ammonia 126, and an Albumin of 2.1. His UA is not suggestive of UTI. Chest x-ray shows Cardiomegaly, but no appreciable acute abnormalities. He is subsequently admitted to the telemetry unit. He is here for acute on chronic hepatic encephalopathy. He is a full code. His PCP is Allan Redmond. - Related Data Allergies/Adverse Reactions: Allergies Allergy/AdvReac Type Severity Reaction Status Date / Time No Known Allergies Allergy Verified 05/31/17 22:52 Home Medications: Home Meds Cholecalciferol (Vitamin D3) [Vitamin D3] 2,000 unit PO DAILY 11/14/17 [History] Insulin Aspart [Novolog] 1 unit SQ TIDMEALS PRN 11/14/17 [History] Lactulose 40 gm PO TID 11/14/17 [History] Pantoprazole [ProTONIX] 40 mg PO DAILY 11/14/17 [History] Rifaximin [Xifaxan] 550 mg PO BID 11/14/17 [History] Spironolactone 50 mg PO BID 11/14/17 [History] Past Medical History Cardiovascular History: Reports: Hypertension Other Cardiovascular History: UNABLE TO OBTAIN INFORMATION PT IS NOT VERBALLY RESPONSIVE AT THIS TIME Respiratory History: Reports: SOB Other Respiratory History: UNABLE TO OBTAIN INFORMATION PT IS NOT VERBALLY RESPONSIVE AT THIS TIME Gastrointestinal History: Reports: Cirrhosis, GERD, GI Bleed Other Gastrointestinal History: liver failure;stomach bleed. UNABLE TO OBTAIN INFORMATION PT IS NOT VERBALLY RESPONSIVE AT THIS TIME Genitourinary History: Reports: Other (See Below) Other Genitourinary History: UNABLE TO OBTAIN INFORMATION PT IS NOT VERBALLY RESPONSIVE AT THIS TIME Other Musculoskeletal History: UNABLE TO OBTAIN INFORMATION PT IS NOT VERBALLY RESPONSIVE AT THIS TIME Neurological History: Reports: Other (See Below) Other Neuro History: hepatic encephalopathy Psychiatric History: Reports: Addiction Other Psychiatric History: recovered alcoholic. UNABLE TO OBTAIN INFORMATION PT IS NOT VERBALLY RESPONSIVE AT THIS TIME Endocrine/Metabolic History: Reports: Diabetes, Type II, Hypothyroidism, Obesity /BMI 30+ Hematologic History: Reports: Anemia, Blood Transfusion(s) Other Hematologic History: UNABLE TO OBTAIN INFORMATION PT IS NOT VERBALLY RESPONSIVE AT THIS TIME Other Oncologic History: UNABLE TO OBTAIN INFORMATION PT IS NOT VERBALLY RESPONSIVE AT THIS TIME Dermatologic History: Reports: Cellulitis, Eczema Other Dermatologic History: 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 History of cellulitis to both legs. UNABLE TO OBTAIN INFORMATION PT IS NOT VERBALLY RESPONSIVE AT THIS TIME - Infectious Disease History Infectious Disease History: Reports: Hepatitis non A,B,C, Measles, MRSA - Past Surgical History GI Surgical History: Reports: Other (See Below) (TIPS procedure) Social & Family History - Family History Family Medical History: Noncontributory - Tobacco Use Smoking Status *Q: Unknown Ever Smoked Years of Tobacco use: 25 Packs/Tins Daily: 0.5 Used Tobacco, but Quit: Yes Month/Year Tobacco Last Used: 20 years ago Second Hand Smoke Exposure: No - Caffeine Use Caffeine Use: Reports: Other Other Caffeine Use: unable to obtain Caffeine Use Comment: unable to obtain, patient unresponsive - Alcohol Use Days Per Week of Alcohol Use: 0 - Recreational Drug Use Recreational Drug Use: No Other Recreational Drug Type: unable to obtain - Living Situation & Occupation Living situation: Reports: , with Family Occupation: Employed H&P Review of Systems - Review of Systems: Review Of Systems: See Below General: Reports: Fatigue. Denies: Fever, Chills HEENT: Reports: No Symptoms Pulmonary: Reports: No Symptoms Cardiovascular: Reports: No Symptoms. Denies: Chest Pain Gastrointestinal: Reports: Abdominal Pain (general area, 11/15). Denies: Constipation, Diarrhea, Decreased Appetite, Nausea, Vomiting Genitourinary: Reports: No Symptoms Musculoskeletal: Reports: No Symptoms Skin: Reports: No Symptoms Psychiatric: Reports: Confusion Neurological: Reports: Confusion, Trouble Speaking Hematologic/Lymphatic: Reports: No Symptoms Exam - Exam Exam: See Below - Vital Signs Vital Signs: Last Vital Signs Temp 99.4 F 11/14/17 13:55 Pulse 93 11/14/17 13:55 Resp 18 11/14/17 13:55 BP 109/63 11/14/17 13:55 Pulse Ox 98 11/14/17 13:55 Weight: 268 lb - Exam Quality Assessment: No: Supplemental Oxygen, Urinary Catheter General: Alert, Cooperative, Lethargic, Other (Confused) HEENT: Conjunctiva Clear, EACs Clear, EOMI, Hearing Intact, Mucosa Moist & [place] , Pupils Equal, Pupils Reactive Neck: Supple Lungs: Clear to Auscultation, Normal Respiratory Effort Cardiovascular: Regular Rate, Regular Rhythm GI/Abdominal Exam: Normal Bowel Sounds, Soft, Non-Tender, Distended (ascites present) (Male) Exam: Deferred Rectal (Males) Exam: Deferred Back Exam: Normal Inspection, Full Range of Motion, NT Extremities: Normal Inspection, Normal Range of Motion, Non-Tender, No Pedal Edema, Normal Capillary Refill Peripheral Pulses: 2+: Posterior Tibial (L), Posterior Tibial (R), Dorsalis Pedis (L), Dorsalis Pedis (R) Skin: Warm, Dry, Intact Neuro Extensive - Mental Status: Alert, Normal Mood/Affect. No: Oriented x3 ( Confused) Psychiatric: Alert, Normal Affect, Normal Mood - Patient Data Lab Results Last 24 hrs: Laboratory Results - last 24 hr 11/14/17 11/14/17 11/14/17 Range/Units 14:05 14:05 14:05 WBC 2.90 L (4.23-9.07) K/mm3 RBC 3.27 L (4.63-6.08) M/mm3 Hgb 10.5 L (13.7-17.5) gm/L Hct 29.5 L (40.1-51.0) % MCV 90.2 (79.0-92.2) fl MCH 32.1 (25.7-32.2) pg MCHC 35.6 H (32.2-35.5) g/dl RDW Std Deviation 52.1 H (35.1-43.9) fL Plt Count 44 L (163-337) K/mm3 MPV 10.0 (9.4-12.3) fl Neutrophils % (Manual) 68 H (40-60) % Band Neutrophils % 0 (0-10) % Lymphocytes % (Manual) 24 (20-40) % Atypical Lymphs % 0 % Monocytes % (Manual) 5 (2-10) % Eosinophils % (Manual) 2 (0.8-7.0) % Basophils % (Manual) 1 (0.2-1.2) Platelet Estimate Marked dec Plt Morphology Comment Normal Anisocytosis 1+ slight Ovalocytes 1+ slight RBC Morph Comment Not Reportable PT 13.6 H (8.0-13.0) SECONDS INR 1.27 Sodium 140 (136-145) mEq/L Potassium 4.7 (3.5-5.1) mEq/L Chloride 108 H (98-107) mEq/L Carbon Dioxide 22 (21-32) mEq/L Anion Gap 14.7 (5-15) BUN 13 (7-18) mg/dL Creatinine 0.9 (0.7-1.3) mg/dL Est Cr Clr Drug Dosing 98.20 mL/min Estimated GFR (MDRD) > 60 (>60) mL/min BUN/Creatinine Ratio 14.4 (14-18) Glucose 238 H (74-106) mg/dL Lactic Acid (0.4-2.0) mmol/L Calcium 9.3 (8.5-10.1) mg/dL Magnesium (1.8-2.4) mg/dl Total Bilirubin 2.3 H (0.2-1.0) mg/dL AST 30 (15-37) U/L ALT 25 (16-63) U/L Alkaline Phosphatase 79 (46-116) U/L Ammonia (11-32) umol/L Total Protein 6.8 (6.4-8.2) g/dl Albumin 2.1 L (3.4-5.0) g/dl Globulin 4.7 gm/dL Albumin/Globulin Ratio 0.5 L (1-2) Ethyl Alcohol 0.00 (0.00) gm% 11/14/17 11/14/17 11/14/17 Range/Units 14:05 14:05 14:30 WBC (4.23-9.07) K/mm3 RBC (4.63-6.08) M/mm3 Hgb (13.7-17.5) gm/L Hct (40.1-51.0) % MCV (79.0-92.2) fl MCH (25.7-32.2) pg MCHC (32.2-35.5) g/dl RDW Std Deviation (35.1-43.9) fL Plt Count (163-337) K/mm3 MPV (9.4-12.3) fl Neutrophils % (Manual) (40-60) % Band Neutrophils % (0-10) % Lymphocytes % (Manual) (20-40) % Atypical Lymphs % % Monocytes % (Manual) (2-10) % Eosinophils % (Manual) (0.8-7.0) % Basophils % (Manual) (0.2-1.2) Platelet Estimate Plt Morphology Comment Anisocytosis Ovalocytes RBC Morph Comment PT (8.0-13.0) SECONDS INR Sodium (136-145) mEq/L Potassium (3.5-5.1) mEq/L Chloride (98-107) mEq/L Carbon Dioxide (21-32) mEq/L Anion Gap (5-15) BUN (7-18) mg/dL Creatinine (0.7-1.3) mg/dL Est Cr Clr Drug Dosing mL/min Estimated GFR (MDRD) (>60) mL/min BUN/Creatinine Ratio (14-18) Glucose (74-106) mg/dL Lactic Acid 1.4 (0.4-2.0) mmol/L Calcium (8.5-10.1) mg/dL Magnesium 1.2 L (1.8-2.4) mg/dl Total Bilirubin (0.2-1.0) mg/dL AST (15-37) U/L ALT (16-63) U/L Alkaline Phosphatase (46-116) U/L Ammonia 126 H (11-32) umol/L Total Protein (6.4-8.2) g/dl Albumin (3.4-5.0) g/dl Globulin gm/dL Albumin/Globulin Ratio (1-2) Ethyl Alcohol (0.00) gm% Result Diagrams: 11/14/17 14:05 11/14/17 14:05 - Problem List (1) Hepatic encephalopathy SNOMED Code(s): 01641239 ICD Code: K72.90 - HEPATIC FAILURE, UNSPECIFIED WITHOUT COMA Status: Chronic Priority: Medium Current Visit: Yes (2) Hyperammonemia SNOMED Code(s): 5210158 ICD Code: E72.20 - DISORDER OF UREA CYCLE METABOLISM, UNSPECIFIED Status: Acute Priority: High Current Visit: Yes (3) Iron deficiency anemia SNOMED Code(s): 10736052 ICD Code: D50.9 - IRON DEFICIENCY ANEMIA, UNSPECIFIED Status: Acute Priority: Medium Current Visit: Yes Qualifiers: Iron deficiency anemia type: unspecified iron deficiency Qualified Code(s) : D50.9 - Iron deficiency anemia, unspecified (4) Hypomagnesemia SNOMED Code(s): 875896330 ICD Code: E83.42 - HYPOMAGNESEMIA Status: Acute Priority: High Current Visit: Yes (5) GERD (gastroesophageal reflux disease) SNOMED Code(s): 052353175 ICD Code: K21.9 - GASTRO-ESOPHAGEAL REFLUX DISEASE WITHOUT ESOPHAGITIS Status: Chronic Priority: Low Current Visit: No Qualifiers: Esophagitis presence: esophagitis presence not specified Qualified Code(s) : K21.9 - Gastro-esophageal reflux disease without esophagitis (6) Hepatitis non A non B SNOMED Code(s): 873069782 ICD Code: B17.8 - OTHER SPECIFIED ACUTE VIRAL HEPATITIS Status: Chronic Priority: Medium Current Visit: No (7) Hypertension SNOMED Code(s): 71696996 ICD Code: I10 - ESSENTIAL (PRIMARY) HYPERTENSION Status: Chronic Priority : Medium Current Visit: No Qualifiers: Hypertension type: unspecified Qualified Code(s): I10 - Essential (primary ) hypertension (8) Cirrhosis of liver SNOMED Code(s): 50866504 ICD Code: K74.60 - UNSPECIFIED CIRRHOSIS OF LIVER Status: Chronic Priority: High Current Visit: No (9) Diabetes mellitus type 2 SNOMED Code(s): 20437094 ICD Code: E11.9 - TYPE 2 DIABETES MELLITUS WITHOUT COMPLICATIONS Status: Chronic Priority: Low Current Visit: No Problem List Initiated/Reviewed/Updated: Yes Orders Last 24hrs: Active Orders 24 hr Category Date Time Status Admission Status [Patient Status] [ADT] Routine ADT 11/14/17 17:46 Active Blood Glucose Check, Bedside [RC] QIDACANDBED Care 11/14/17 18:49 Active Height and Weight [RC] 04 Care 11/14/17 17:32 Active Intake and Output [RC] 04,16 Care 11/14/17 17:33 Active Oxygen Therapy [RC] PRN Care 11/14/17 17:33 Active Peripheral IV Care [RC] Q2HR Care 11/14/17 14:05 Active Pulse Oximetry [RC] PRN Care 11/14/17 17:33 Active RT Aerosol Therapy [RC] ASDIRECTED Care 11/14/17 17:41 Active Up With Assistance [RC] ASDIRECTED Care 11/14/17 17:32 Active Up ad Ritu [RC] ASDIRECTED Care 11/14/17 17:32 Active VTE/DVT Education [RC] PER UNIT ROUTINE Care 11/14/17 17:33 Active Vital Signs [RC] Q4H Care 11/14/17 17:33 Active Consult to Case Management [CONS] Routine Cons 11/14/17 17:42 Active Consult to Perinatology Physician [CONS] Routine Cons 11/14/17 17:42 Active Consult to Type Proof Reproducer [CONS] Routine Cons 11/14/17 17:42 Active Consult to Spiritual Care [CONS] Routine Cons 11/14/17 17:42 Active Regular Diet [DIET] Diet 11/14/17 Dinner Active CBC WITH AUTO DIFF [HEME] AM Lab 11/15/17 05:11 Ordered CBC WITH AUTO DIFF [HEME] AM Lab 11/16/17 05:11 Ordered CBC WITH AUTO DIFF [HEME] AM Lab 11/17/17 05:11 Ordered COMPREHENSIVE METABOLIC PN,CMP [CHEM] AM Lab 11/15/17 05:11 Ordered COMPREHENSIVE METABOLIC PN,CMP [CHEM] AM Lab 11/16/17 05:11 Ordered COMPREHENSIVE METABOLIC PN,CMP [CHEM] AM Lab 11/17/17 05:11 Ordered MAGNESIUM [CHEM] AM Lab 11/15/17 05:11 Ordered MAGNESIUM [CHEM] AM Lab 11/16/17 05:11 Ordered MAGNESIUM [CHEM] AM Lab 11/17/17 05:11 Ordered METH-RESIST S.AUR,MRSA BY PCR [MOLEC] Routine Lab 11/14/17 18:45 Ordered Acetaminophen [Tylenol] Med 11/14/17 17:32 Active 650 mg PO Q4H PRN Albuterol/Ipratropium [DuoNeb 3.0-0.5 MG/3 ML] Med 11/14/17 17:32 Active 3 ml NEB Q4H PRN Cholecalciferol (Vitamin D3) [Vitamin D3] Med 11/15/17 09:00 Active 2,000 units PO DAILY Dextrose 50% in Water Med 11/14/17 18:49 Ordered 50 ml IVPUSH ASDIRECTED PRN HYDROmorphone [Dilaudid] Med 11/14/17 17:32 Active 0.25 mg IVPUSH Q2H PRN Insulin Aspart [NovoLOG] Med 11/14/17 22:00 Ordered See Protocol SUBCUT QIDACANDBED LORazepam [Ativan] Med 11/14/17 17:32 Active 1 mg IV Q6H PRN LORazepam [Ativan] Med 11/14/17 17:26 Active 2 mg IVPUSH Q4H PRN Lactulose [Cephulac] Med 11/14/17 21:00 Active 40 gm PO QID Magnesium Rep Pharmacy to Dose [Pharmacy to Dose - Med 11/14/17 17:30 Pending Magnesium Replacement] 1 dose .XX ASDIRECTED Magnesium Sulfate/Water [Magnesium Sulfate 2 GM in Med 11/14/17 18:00 Active Water 50 ML] 2 gm Premix Bag 1 bag IV Q1H Metoprolol Tartrate [Lopressor] Med 11/14/17 17:26 Active 5 mg IVPUSH Q4H PRN Ondansetron [Zofran] Med 11/14/17 17:32 Active 4 mg IV Q6H PRN Pantoprazole [ProTONIX] Med 11/15/17 09:00 Active 40 mg PO DAILY Potassium Rep Pharmacy to Dose [Pharmacy to Dose - Med 11/14/17 17:30 Pending Potassium Replacement] 1 dose .XX ASDIRECTED Promethazine [Phenergan] 12.5 mg Med 11/14/17 17:32 Ordered Sodium Chloride 0.9% [Normal Saline] 50 ml IV Q6H Rifaximin [Xifaxan] Med 11/14/17 21:00 Active 550 mg PO BID Sodium Chloride 0.9% [Saline Flush] Med 11/14/17 14:05 Active 10 ml FLUSH ASDIRECTED PRN Spironolactone [Aldactone] Med 11/14/17 21:00 Active 50 mg PO BID Temazepam [Restoril] Med 11/14/17 17:32 Ordered 15 mg PO BEDTIME PRN hydrALAZINE [Apresoline] Med 11/14/17 17:26 Active 20 mg IVPUSH Q4H PRN oxyCODONE Med 11/14/17 17:32 Active 5 mg PO Q4H PRN Peripheral IV Insertion Adult [OM.PC] Stat Oth 11/14/17 14:05 Ordered Sequential Compression Device [OM.PC] Per Unit Routine Oth 11/14/17 17:33 Ordered Resuscitation Status Routine Resus Stat 11/14/17 17:32 Ordered Medication Orders Acetaminophen (Tylenol) 650 mg PO Q4H PRN PRN Reason: Pain (Mild 1-3)/fever Albuterol/Ipratropium (Duoneb 3.0-0.5 Mg/3 Ml) 3 ml NEB Q4H PRN PRN Reason: Shortness Of Breath/wheezing Cholecalciferol (Vitamin D3) 2,000 units PO DAILY DHIRAJ Dextrose/Water (Dextrose 50% In Water) 50 ml IVPUSH ASDIRECTED PRN PRN Reason: Hypoglycemia Hydralazine HCl (Apresoline) 20 mg IVPUSH Q4H PRN PRN Reason: Hypertension Hydromorphone HCl (Dilaudid) 0.25 mg IVPUSH Q2H PRN PRN Reason: Pain (severe 7-10) Promethazine HCl 12.5 mg/ (Sodium Chloride) 50.5 mls @ 100 mls/hr IV Q6H PRN PRN Reason: Nausea/Vomiting Magnesium Sulfate 2 gm/ Premix 50 mls @ 50 mls/hr IV Q1H DHIRAJ Stop: 11/14/17 19:59 Last Admin: 11/14/17 18:42 Dose: 50 mls/hr Insulin Aspart (Novolog) 0 unit SUBCUT QIDACANDBED DHIRAJ; Protocol Lactulose (Cephulac) 40 gm PO QID DHIRAJ Lorazepam (Ativan) 2 mg IVPUSH Q4H PRN PRN Reason: Seizures Lorazepam (Ativan) 1 mg IV Q6H PRN PRN Reason: Anxiety Magnesium Sulfate (Pharmacy To Dose - Magnesium Replacement) 1 dose .XX ASDIRECTED [facility] Metoprolol Tartrate (Lopressor) 5 mg IVPUSH Q4H PRN PRN Reason: Tachycardia Ondansetron HCl (Zofran) 4 mg IV Q6H PRN PRN Reason: Nausea/Vomiting Oxycodone HCl (Oxycodone) 5 mg PO Q4H PRN PRN Reason: Pain (moderate 4-6) Pantoprazole Sodium (Protonix) 40 mg PO DAILY [facility] Potassium Chloride (Pharmacy To Dose - Potassium Replacement) 1 dose .XX ASDIRECTED [facility] Rifaximin (Xifaxan) 550 mg PO BID [facility] Sodium Chloride (Saline Flush) 10 ml FLUSH ASDIRECTED PRN PRN Reason: Keep Vein Open Last Admin: 11/14/17 14:19 Dose: 10 ml Spironolactone (Aldactone) 50 mg PO BID DHIRAJ Temazepam (Restoril) 15 mg PO BEDTIME PRN PRN Reason: Sleep Assessment/Plan Comment:: Assessment/Plan: Acute: Hepatic Encephalopathy - Acute on Chronic - 2/2 Advanced Liver Disease and Medical Non-Compliance - CXR: No acute abnormal findings - Ammonia level on admission-126 - UA negative for UTI - Resume Home Meds: Lactulose and Xifaxan - No need for serial ammonia level - Avoid NSAIDs if all possible - MVI, Folic Acid and Thiamine Supplement DM2 with Hyperglycemia - BS in the 200s - He is on Metformin 850 mg po BID - Accu-check AM/HS and ISS Chronic: Advanced Liver Disease from Hx/o Alcohol Abuse Hx/o Esophageal Varices S/p TIPS Obesity with BMI of 36.8 Pantocypenia - Leukocytopenia - WBC 2.9 - Has adequate neutrophils - He has no signs of systemic infection - Unclear where the source is; possibly from Advanced Liver Disease - Anemia - Hgb 10.5; No active GI Bleed or complaints of Melenic Stool but has Hx/ o Esophageal Varices - Vit B12 and Folate levels: are adequate - Consider Iron supplement - Thrombocytopenia - Platelet level 44 - This is Likely 2/2 Splenic Sequestration - No anti-coags; will monitor Hypomagnesium -Mg 1.2 -Give Mg Supplement Hyperbilirubinemia - Total Bili 2.3; Urine Urobilinogen 4 (elevated) - 2/2 Advanced Liver Disease - Monitor Malnutrition - Albumin level is 2.1 - 2/2 Advanced Liver Disease - Dietary consult for protein intake Medical Non-Compliance Plan: Admitted to Med-Surg Routine AM Labs Resume Home Meds PT/OT consult GI PPx: PPI DVT PPx: Stockings or CYNTHIA Hose Diabetic consult if available SW/CM for d/c planning Full code; PCP is Allan Redmond
[2017-11-14] MEDS: Rifaximin 550 MG Tab PO SCH (20:30)
[2017-11-14] MEDS: Lactulose Soln 10 GM/15 ML 30 ML UD Cup PO SCH (20:36)
[2017-11-14] MEDS: Spironolactone 25 MG Tab PO SCH (20:41)
[2017-11-14] MEDS: Insulin Aspart 100 Units/ML 3 ML Pen SUBCUT SCH (22:23)
[2017-11-15] MEDS: Lactulose Soln 10 GM/15 ML 30 ML UD Cup PO SCH ×4 (08:19→22:12)
[2017-11-15] MEDS: Spironolactone 25 MG Tab PO SCH ×2 (08:19→22:12)
[2017-11-15] MEDS: Insulin Aspart 100 Units/ML 3 ML Pen SUBCUT SCH ×4 (08:19→22:20)
[2017-11-15] MEDS: Magnesium Sulfate/Water 2 GM in Premix Bag 1 BAG IV SCH ×2 (08:19→10:29)
[2017-11-15] MEDS: Pantoprazole 40 MG Tab.CR PO SCH (08:20)
[2017-11-15] MEDS: Rifaximin 550 MG Tab PO SCH ×2 (08:20→22:12)
[2017-11-15] MEDS: Cholecalciferol (Vitamin D3) 1,000 Unit Tab PO SCH (08:20)
--- NOTE | 2017-11-15 08:32 | PCM.PN ---
- General Info Date of Service: 11/15/17 Admission Dx/Problem (Free Text): Admission Diagnosis/Problem Admission Diagnosis/Problem Hepatic encephalopathy Subjective Update: In to see Kaden. He is lying in bed. His mentation has improved and he is A& Ox3 although somewhat tired. He is angry that he is still on up with assistance however he was quite unsteady on arrival. He reports no concerns. He reports that he was recently removed from metformin as his sugars were uncontrolled and placed on sliding scale and long acting insulin. Pharmacy reports he never filled these at his primary pharmacy as his prescription remains there. He states he did fill his prescription at [facility] which was given to him in [place]. Daughter told nursing last night that she was out of town and the hay stacker did not know to give the patient his magnesium and lactulose. This would certainly correlate with his labs. He is complaining of pain in his navel. No erythema, wound or puncture davila are noted and this may be related to stomach pains from his current treatment. Nursing has no concerns. Likely discharge tomorrow pending continued improvement. Functional Status: Reports: Pain Controlled, Tolerating Diet, Ambulating, Urinating. Denies: New Symptoms - Review of Systems General: Reports: Fatigue, Appetite. Denies: Fever, Weakness, Malaise, Chills HEENT: Reports: No Symptoms. Denies: Headaches, Sinus Congestion, Sore Throat Pulmonary: Reports: No Symptoms. Denies: Shortness of Breath, Cough, Sputum, Wheezing Cardiovascular: Reports: No Symptoms. Denies: Chest Pain, Palpitations, Dyspnea on Exertion, Edema Gastrointestinal: Reports: Abdominal Pain ("in belly button"), Diarrhea, Flatus. Denies: Constipation, Nausea, Vomiting Genitourinary: Reports: No Symptoms Musculoskeletal: Reports: No Symptoms Skin: Reports: No Symptoms Neurological: Reports: No Symptoms Psychiatric: Reports: No Symptoms - Patient Data Vitals - Most Recent: Last Vital Signs Temp 99.3 F 11/15/17 08:17 Pulse 83 11/15/17 08:17 Resp 18 11/15/17 08:17 BP 136/60 11/15/17 08:17 Pulse Ox 94 L 11/15/17 08:17 Weight - Most Recent: 268 lb I&O - Last 24 Hours: Intake & Output 11/14/17 11/15/17 11/15/17 22:59 06:59 14:59 Intake Total 410 Output Total 902 Balance -492 Lab Results Last 24 Hours: Laboratory Results - last 24 hr 11/14/17 11/14/17 11/14/17 Range/Units 14:05 14:05 14:05 WBC 2.90 L (4.23-9.07) K/mm3 RBC 3.27 L (4.63-6.08) M/mm3 Hgb 10.5 L (13.7-17.5) gm/L Hct 29.5 L (40.1-51.0) % MCV 90.2 (79.0-92.2) fl MCH 32.1 (25.7-32.2) pg MCHC 35.6 H (32.2-35.5) g/dl RDW Std Deviation 52.1 H (35.1-43.9) fL Plt Count 44 L (163-337) K/mm3 MPV 10.0 (9.4-12.3) fl Neut % (Auto) (34.0-67.9) % Lymph % (Auto) (21.8-53.1) % [place] % (Auto) (5.3-12.2) % Eos % (Auto) (0.8-7.0) Baso % (Auto) (0.1-1.2) % Neut # (Auto) (1.78-5.38) K/mm3 Lymph # (Auto) (1.32-3.57) K/mm3 [place] # (Auto) (0.30-0.82) K/mm3 Eos # (Auto) (0.04-0.54) K/mm3 Baso # (Auto) (0.01-0.08) K/mm3 Neutrophils % (Manual) 68 H (40-60) % Band Neutrophils % 0 (0-10) % Lymphocytes % (Manual) 24 (20-40) % Atypical Lymphs % 0 % Monocytes % (Manual) 5 (2-10) % Eosinophils % (Manual) 2 (0.8-7.0) % Basophils % (Manual) 1 (0.2-1.2) Manual Slide Review Platelet Estimate Marked dec Plt Morphology Comment Normal Anisocytosis 1+ slight Ovalocytes 1+ slight RBC Morph Comment Not Reportable PT 13.6 H (8.0-13.0) SECONDS INR 1.27 Sodium 140 (136-145) mEq/L Potassium 4.7 (3.5-5.1) mEq/L Chloride 108 H (98-107) mEq/L Carbon Dioxide 22 (21-32) mEq/L Anion Gap 14.7 (5-15) BUN 13 (7-18) mg/dL Creatinine 0.9 (0.7-1.3) mg/dL Est Cr Clr Drug Dosing 98.20 mL/min Estimated GFR (MDRD) > 60 (>60) mL/min BUN/Creatinine Ratio 14.4 (14-18) Glucose 238 H (74-106) mg/dL POC Glucose (70-105) mg/dL Lactic Acid (0.4-2.0) mmol/L Calcium 9.3 (8.5-10.1) mg/dL Magnesium (1.8-2.4) mg/dl Total Bilirubin 2.3 H (0.2-1.0) mg/dL AST 30 (15-37) U/L ALT 25 (16-63) U/L Alkaline Phosphatase 79 (46-116) U/L Ammonia (11-32) umol/L Total Protein 6.8 (6.4-8.2) g/dl Albumin 2.1 L (3.4-5.0) g/dl Globulin 4.7 gm/dL Albumin/Globulin Ratio 0.5 L (1-2) Ethyl Alcohol 0.00 (0.00) gm% MRSA (PCR) 11/14/17 11/14/17 11/14/17 Range/Units 14:05 14:05 14:30 WBC (4.23-9.07) K/mm3 RBC (4.63-6.08) M/mm3 Hgb (13.7-17.5) gm/L Hct (40.1-51.0) % MCV (79.0-92.2) fl MCH (25.7-32.2) pg MCHC (32.2-35.5) g/dl RDW Std Deviation (35.1-43.9) fL Plt Count (163-337) K/mm3 MPV (9.4-12.3) fl Neut % (Auto) (34.0-67.9) % Lymph % (Auto) (21.8-53.1) % [place] % (Auto) (5.3-12.2) % Eos % (Auto) (0.8-7.0) Baso % (Auto) (0.1-1.2) % Neut # (Auto) (1.78-5.38) K/mm3 Lymph # (Auto) (1.32-3.57) K/mm3 [place] # (Auto) (0.30-0.82) K/mm3 Eos # (Auto) (0.04-0.54) K/mm3 Baso # (Auto) (0.01-0.08) K/mm3 Neutrophils % (Manual) (40-60) % Band Neutrophils % (0-10) % Lymphocytes % (Manual) (20-40) % Atypical Lymphs % % Monocytes % (Manual) (2-10) % Eosinophils % (Manual) (0.8-7.0) % Basophils % (Manual) (0.2-1.2) Manual Slide Review Platelet Estimate Plt Morphology Comment Anisocytosis Ovalocytes RBC Morph Comment PT (8.0-13.0) SECONDS INR Sodium (136-145) mEq/L Potassium (3.5-5.1) mEq/L Chloride (98-107) mEq/L Carbon Dioxide (21-32) mEq/L Anion Gap (5-15) BUN (7-18) mg/dL Creatinine (0.7-1.3) mg/dL Est Cr Clr Drug Dosing mL/min Estimated GFR (MDRD) (>60) mL/min BUN/Creatinine Ratio (14-18) Glucose (74-106) mg/dL POC Glucose (70-105) mg/dL Lactic Acid 1.4 (0.4-2.0) mmol/L Calcium (8.5-10.1) mg/dL Magnesium 1.2 L (1.8-2.4) mg/dl Total Bilirubin (0.2-1.0) mg/dL AST (15-37) U/L ALT (16-63) U/L Alkaline Phosphatase (46-116) U/L Ammonia 126 H (11-32) umol/L Total Protein (6.4-8.2) g/dl Albumin (3.4-5.0) g/dl Globulin gm/dL Albumin/Globulin Ratio (1-2) Ethyl Alcohol (0.00) gm% MRSA (PCR) 11/14/17 11/14/17 11/15/17 Range/Units 18:45 20:32 05:48 WBC 3.38 L (4.23-9.07) K/mm3 RBC 3.23 L (4.63-6.08) M/mm3 Hgb 10.4 L (13.7-17.5) gm/L Hct 29.6 L (40.1-51.0) % MCV 91.6 (79.0-92.2) fl MCH 32.2 (25.7-32.2) pg MCHC 35.1 (32.2-35.5) g/dl RDW Std Deviation 54.4 H (35.1-43.9) fL Plt Count 46 L (163-337) K/mm3 MPV 10.1 (9.4-12.3) fl Neut % (Auto) 63.0 (34.0-67.9) % Lymph % (Auto) 25.7 (21.8-53.1) % [place] % (Auto) 9.2 (5.3-12.2) % Eos % (Auto) 1.8 (0.8-7.0) Baso % (Auto) 0.3 (0.1-1.2) % Neut # (Auto) 2.13 (1.78-5.38) K/mm3 Lymph # (Auto) 0.87 L (1.32-3.57) K/mm3 [place] # (Auto) 0.31 (0.30-0.82) K/mm3 Eos # (Auto) 0.06 (0.04-0.54) K/mm3 Baso # (Auto) 0.01 (0.01-0.08) K/mm3 Neutrophils % (Manual) (40-60) % Band Neutrophils % (0-10) % Lymphocytes % (Manual) (20-40) % Atypical Lymphs % % Monocytes % (Manual) (2-10) % Eosinophils % (Manual) (0.8-7.0) % Basophils % (Manual) (0.2-1.2) Manual Slide Review Abnormal smear Platelet Estimate Plt Morphology Comment Anisocytosis Ovalocytes RBC Morph Comment PT (8.0-13.0) SECONDS INR Sodium (136-145) mEq/L Potassium (3.5-5.1) mEq/L Chloride (98-107) mEq/L Carbon Dioxide (21-32) mEq/L Anion Gap (5-15) BUN (7-18) mg/dL Creatinine (0.7-1.3) mg/dL Est Cr Clr Drug Dosing mL/min Estimated GFR (MDRD) (>60) mL/min BUN/Creatinine Ratio (14-18) Glucose (74-106) mg/dL POC Glucose 304 H (70-105) mg/dL Lactic Acid (0.4-2.0) mmol/L Calcium (8.5-10.1) mg/dL Magnesium (1.8-2.4) mg/dl Total Bilirubin (0.2-1.0) mg/dL AST (15-37) U/L ALT (16-63) U/L Alkaline Phosphatase (46-116) U/L Ammonia (11-32) umol/L Total Protein (6.4-8.2) g/dl Albumin (3.4-5.0) g/dl Globulin gm/dL Albumin/Globulin Ratio (1-2) Ethyl Alcohol (0.00) gm% MRSA (PCR) Negative 11/15/17 11/15/17 11/15/17 Range/Units 05:48 06:32 07:20 WBC (4.23-9.07) K/mm3 RBC (4.63-6.08) M/mm3 Hgb (13.7-17.5) gm/L Hct (40.1-51.0) % MCV (79.0-92.2) fl MCH (25.7-32.2) pg MCHC (32.2-35.5) g/dl RDW Std Deviation (35.1-43.9) fL Plt Count (163-337) K/mm3 MPV (9.4-12.3) fl Neut % (Auto) (34.0-67.9) % Lymph % (Auto) (21.8-53.1) % [place] % (Auto) (5.3-12.2) % Eos % (Auto) (0.8-7.0) Baso % (Auto) (0.1-1.2) % Neut # (Auto) (1.78-5.38) K/mm3 Lymph # (Auto) (1.32-3.57) K/mm3 [place] # (Auto) (0.30-0.82) K/mm3 Eos # (Auto) (0.04-0.54) K/mm3 Baso # (Auto) (0.01-0.08) K/mm3 Neutrophils % (Manual) (40-60) % Band Neutrophils % (0-10) % Lymphocytes % (Manual) (20-40) % Atypical Lymphs % % Monocytes % (Manual) (2-10) % Eosinophils % (Manual) (0.8-7.0) % Basophils % (Manual) (0.2-1.2) Manual Slide Review Platelet Estimate Plt Morphology Comment Anisocytosis Ovalocytes RBC Morph Comment PT (8.0-13.0) SECONDS INR Sodium 138 (136-145) mEq/L Potassium 4.1 (3.5-5.1) mEq/L Chloride 109 H (98-107) mEq/L Carbon Dioxide 22 (21-32) mEq/L Anion Gap 11.1 (5-15) BUN 14 (7-18) mg/dL Creatinine 1.0 (0.7-1.3) mg/dL Est Cr Clr Drug Dosing 83.14 mL/min Estimated GFR (MDRD) > 60 (>60) mL/min BUN/Creatinine Ratio 14.0 (14-18) Glucose 267 H (74-106) mg/dL POC Glucose 273 H (70-105) mg/dL Lactic Acid (0.4-2.0) mmol/L Calcium 8.8 (8.5-10.1) mg/dL Magnesium 1.4 L (1.8-2.4) mg/dl Total Bilirubin 2.9 H (0.2-1.0) mg/dL AST 27 (15-37) U/L ALT 18 (16-63) U/L Alkaline Phosphatase 71 (46-116) U/L Ammonia 83 H (11-32) umol/L Total Protein 6.6 (6.4-8.2) g/dl Albumin 2.0 L (3.4-5.0) g/dl Globulin 4.6 gm/dL Albumin/Globulin Ratio 0.4 L (1-2) Ethyl Alcohol (0.00) gm% MRSA (PCR) Med Orders - Current: Current Medications Acetaminophen (Tylenol) 650 mg PO Q4H PRN PRN Reason: Pain (Mild 1-3)/fever Albuterol/Ipratropium (Duoneb 3.0-0.5 Mg/3 Ml) 3 ml NEB Q4H PRN PRN Reason: Shortness Of Breath/wheezing Cholecalciferol (Vitamin D3) 2,000 units PO DAILY [facility] Last Admin: 11/15/17 08:20 Dose: 2,000 units Dextrose/Water (Dextrose 50% In Water) 50 ml IVPUSH ASDIRECTED PRN PRN Reason: Hypoglycemia Hydralazine HCl (Apresoline) 20 mg IVPUSH Q4H PRN PRN Reason: Hypertension Hydromorphone HCl (Dilaudid) 0.25 mg IVPUSH Q2H PRN PRN Reason: Pain (severe 7-10) Promethazine HCl 12.5 mg/ (Sodium Chloride) 50.5 mls @ 100 mls/hr IV Q6H PRN PRN Reason: Nausea/Vomiting Magnesium Sulfate 2 gm/ Premix 50 mls @ 25 mls/hr IV Q2H [facility] Stop: 11/15/17 11:29 Last Admin: 11/15/17 08:19 Dose: 25 mls/hr Insulin Aspart (Novolog) 0 unit SUBCUT QIDACANDBED [facility]; Protocol Last Admin: 11/15/17 08:19 Dose: 6 unit Lactulose (Cephulac) 40 gm PO QID [facility] Last Admin: 11/15/17 08:19 Dose: 40 gm Lorazepam (Ativan) 2 mg IVPUSH Q4H PRN PRN Reason: Seizures Lorazepam (Ativan) 1 mg IV Q6H PRN PRN Reason: Anxiety Magnesium Sulfate (Pharmacy To Dose - Magnesium Replacement) 0 dose .XX ASDIRECTED PRN PRN Reason: RX TO WATCH MAG LEVELS Metoprolol Tartrate (Lopressor) 5 mg IVPUSH Q4H PRN PRN Reason: Tachycardia Ondansetron HCl (Zofran) 4 mg IV Q6H PRN PRN Reason: Nausea/Vomiting Oxycodone HCl (Oxycodone) 5 mg PO Q4H PRN PRN Reason: Pain (moderate 4-6) Pantoprazole Sodium (Protonix) 40 mg PO DAILY [facility] Last Admin: 11/15/17 08:20 Dose: 40 mg Potassium Chloride (Pharmacy To Dose - Potassium Replacement) 0 dose .XX ASDIRECTED PRN PRN Reason: RX TO WATCH K LEVELS Rifaximin (Xifaxan) 550 mg PO BID [facility] Last Admin: 11/15/17 08:20 Dose: 550 mg Sodium Chloride (Saline Flush) 10 ml FLUSH ASDIRECTED PRN PRN Reason: Keep Vein Open Last Admin: 11/14/17 14:19 Dose: 10 ml Spironolactone (Aldactone) 50 mg PO BID [facility] Last Admin: 11/15/17 08:19 Dose: 50 mg Temazepam (Restoril) 15 mg PO BEDTIME PRN PRN Reason: Sleep Discontinued Medications Sodium Chloride (Normal Saline) 500 mls @ 999 mls/hr IV .BOLUS ONE Stop: 11/14/17 14:49 Last Admin: 11/14/17 14:28 Dose: 999 mls/hr Magnesium Sulfate 2 gm/ Premix 50 mls @ 50 mls/hr IV Q1H [facility] Stop: 11/14/17 19:59 Last Admin: 11/14/17 19:40 Dose: 50 mls/hr Lactulose (Cephulac) 40 gm PO ONETIME ONE Stop: 11/14/17 14:23 Last Admin: 11/14/17 14:42 Dose: 40 gm Lactulose (Cephulac) 40 gm PO ONETIME ONE Stop: 11/14/17 18:26 Last Admin: 11/14/17 18:56 Dose: 40 gm - Exam Quality Assessment: DVT Prophylaxis General: Alert, Oriented, Cooperative, No Acute Distress HEENT: Pupils Equal, Pupils Reactive, EOMI, Mucous Membr. Moist/[place] Neck: Supple, Trachea Midline Lungs: Clear to Auscultation, Normal Respiratory Effort, Decreased Breath Sounds Cardiovascular: Regular Rate, Regular Rhythm GI/Abdominal Exam: Normal Bowel Sounds, Soft, Non-Tender, No Organomegaly, No Distention, No Abnormal Bruit, No Mass, Pelvis Stable (Male) Exam: Deferred Back Exam: Normal Inspection, Full Range of Motion Extremities: Normal Inspection, Normal Range of Motion, Non-Tender, No Pedal Edema, Normal Capillary Refill Peripheral Pulses: 2+: Radial (L), Radial (R), Posterior Tibial (L), Posterior Tibial (R), Dorsalis Pedis (L), Dorsalis Pedis (R) Skin: Warm, Dry, Intact Neurological: No New Focal Deficit Psy/Mental Status: Alert, Normal Affect, Normal Mood - Problem List & Annotations (1) Hyperammonemia SNOMED Code(s): 3076542 Code(s): E72.20 - DISORDER OF UREA CYCLE METABOLISM, UNSPECIFIED Status: Acute Priority: High Current Visit: Yes (2) Hypomagnesemia SNOMED Code(s): 821861653 Code(s): E83.42 - HYPOMAGNESEMIA Status: Acute Priority: High Current Visit: Yes (3) Iron deficiency anemia SNOMED Code(s): 63828904 Code(s): D50.9 - IRON DEFICIENCY ANEMIA, UNSPECIFIED Status: Chronic Priority: Medium Current Visit: Yes Qualifiers: Iron deficiency anemia type: unspecified iron deficiency Qualified Code(s) : D50.9 - Iron deficiency anemia, unspecified (4) Hepatic encephalopathy SNOMED Code(s): 86636930 Code(s): K72.90 - HEPATIC FAILURE, UNSPECIFIED WITHOUT COMA Status: Acute Priority: High Current Visit: Yes (5) CHF, Congestive heart failure SNOMED Code(s): 78901467 Code(s): I50.9 - HEART FAILURE, UNSPECIFIED Status: Chronic Priority: Medium Current Visit: No (6) Hyperglycemia due to type 2 diabetes mellitus SNOMED Code(s): 821835612937557, 586144028542207 Code(s): E11.65 - TYPE 2 DIABETES MELLITUS WITH HYPERGLYCEMIA Status: Acute Priority: High Current Visit: Yes Qualifiers: Diabetes mellitus care home insulin use: without care home use Qualified Code(s): E11.65 - Type 2 diabetes mellitus with hyperglycemia (7) Poorly controlled diabetes mellitus SNOMED Code(s): 322515795, 864246962 Code(s): E11.65 - TYPE 2 DIABETES MELLITUS WITH HYPERGLYCEMIA Status: Acute Priority: High Current Visit: Yes (8) Cirrhosis of liver with ascites SNOMED Code(s): 48310252, 525144718 Code(s): K74.60 - UNSPECIFIED CIRRHOSIS OF LIVER Status: Chronic Priority : Medium Current Visit: No Qualifiers: Hepatic cirrhosis type: unspecified hepatic cirrhosis Qualified Code(s): K74.60 - Unspecified cirrhosis of liver (9) Hepatitis non A non B SNOMED Code(s): 668052728 Code(s): B17.8 - OTHER SPECIFIED ACUTE VIRAL HEPATITIS Status: Chronic Priority: Medium Current Visit: No (10) Hypertension SNOMED Code(s): 52713740 Code(s): I10 - ESSENTIAL (PRIMARY) HYPERTENSION Status: Chronic Priority : Medium Current Visit: No Qualifiers: Hypertension type: unspecified Qualified Code(s): I10 - Essential (primary ) hypertension (11) Obesity SNOMED Code(s): 410746717 Code(s): E66.9 - OBESITY, UNSPECIFIED Status: Chronic Priority: Medium Current Visit: No - Problem List Review Problem List Initiated/Reviewed/Updated: Yes - My Orders Last 24 Hours: My Active Orders 11/15/17 Breakfast ADA Diabetic [[place] [employer] Diet] [DIET] - Plan Plan:: Assessment/Plan: Acute: Hepatic Encephalopathy, improved - Acute on Chronic - 2/2 Advanced Liver Disease and Medical Non-Compliance - CXR: No acute abnormal findings - Ammonia level on admission-126 - UA negative for UTI - Resume Home Meds: Lactulose and Xifaxan - No need for serial ammonia level - Avoid NSAIDs if all possible - MVI, Folic Acid and Thiamine Supplement - Mentation improving today DM2 with Hyperglycemia - BS in the 200s - He was on Metformin 850 mg po BID but was switched to sliding scale and long acting insulin recently - Accu-check QID AC and bedtime - Sliding scale and home levemir Chronic: Advanced Liver Disease from Hx/o Alcohol Abuse Hx/o Esophageal Varices S/p TIPS Obesity with BMI of 36.8 Pantocypenia - Leukocytopenia - WBC 2.9-->3.38 - Has adequate neutrophils - He has no signs of systemic infection - Unclear where the source is; possibly from Advanced Liver Disease - Anemia - Hgb 10.5-->10.4; No active GI Bleed or complaints of Melenic Stool but has Hx/o Esophageal Varices - Vit B12 and Folate levels: are adequate - Consider Iron supplement - Thrombocytopenia - Platelet level 44-->46 - This is Likely 2/2 Splenic Sequestration - No anti-coags; will monitor Hypomagnesium -Mg 1.2-->1.4 -Give Mg Supplement -Pharmacy to monitor and supplement Hyperbilirubinemia - Total Bili 2.3-->2.9; Urine Urobilinogen 4 (elevated) - 2/2 Advanced Liver Disease - Monitor Malnutrition - Albumin level is 2.1 - 2/2 Advanced Liver Disease - Dietary consult for protein intake Medical Non-Compliance - Patient reports he has been taking all meds as prescribed - Daughter/hay stacker reportedly OOT and substitute hay stacker forgot some meds - Poor follow-up with PCP Plan: He is improving clinically Routine AM Labs Resume Home Meds PT/OT consult GI PPx: PPI DVT PPx: SCDs Diabetic consult if available SW/CM for d/c planning Full code; PCP is Allan Redmond Likely discharge tomorrow - 11/15/17
[2017-11-15] MEDS: Insulin Detemir 100 Units/ML 3 ML Pen SUBCUT SCH (10:29)
[2017-11-16] MEDS ORDERED: Magnesium Sulfate/Water 2 GM in Premix Bag 1 BAG IV ONE ×2 (07:11→10:15)
--- NOTE | 2017-11-16 08:17 | PCM.DCSUM1 ---
Discharge Summary - Hospital Course Brief History: This is a 57 yo male with past medical h/o significant hepatic disease who comes in via ambulance d/t altered mental status. Patient is well known to the hospitalist team due to multiple admissions related to hepatic encephalopathy. Per daughter, she went out of town and forgot to give him his Lactulose medication x 2 days. Currently he complains of feeling chills and has some general stomach pain which he rates 4 out of 10. He reports no fever, headache, nausea, vomiting, diarrhea, chest pain, shortness of breath, or GI/ complaints. - Discharge Data Discharge Date: 11/16/17 Discharge Disposition: Home, Self-Care 01 Condition: Good - Discharge Diagnosis/Problem(s) (1) Hyperglycemia due to type 2 diabetes mellitus SNOMED Code(s): 908307250521966, 350880992449070 ICD Code: E11.65 - TYPE 2 DIABETES MELLITUS WITH HYPERGLYCEMIA Status: Acute Priority: High Qualifiers: Diabetes mellitus terminal operations manager insulin use: without senior living use Qualified Code(s): E11.65 - Type 2 diabetes mellitus with hyperglycemia (2) Hepatic encephalopathy SNOMED Code(s): 76250008 ICD Code: K72.90 - HEPATIC FAILURE, UNSPECIFIED WITHOUT COMA Status: Resolved Priority: High (3) Hyperammonemia SNOMED Code(s): 4497321 ICD Code: E72.20 - DISORDER OF UREA CYCLE METABOLISM, UNSPECIFIED Status: Chronic Priority: High (4) Hypomagnesemia SNOMED Code(s): 703746265 ICD Code: E83.42 - HYPOMAGNESEMIA Status: Chronic Priority: High (5) Liver cirrhosis SNOMED Code(s): 26477739 ICD Code: K74.60 - UNSPECIFIED CIRRHOSIS OF LIVER Status: Chronic Priority: High Problem Details: s/p TIPS with Dr. Hernandez in [place], GI with [facility]; 2014 Qualifiers: Hepatic cirrhosis type: alcoholic cirrhosis Ascites presence: with ascites Qualified Code(s): K70.31 - Alcoholic cirrhosis of liver with ascites (6) Obesity SNOMED Code(s): 769672361 ICD Code: E66.9 - OBESITY, UNSPECIFIED Status: Chronic Priority: Medium (7) S/P TIPS (transjugular intrahepatic portosystemic shunt) SNOMED Code(s): 137981289, 116085228 ICD Code: Z95.828 - PRESENCE OF OTHER VASCULAR IMPLANTS AND GRAFTS Status: Chronic Priority: Medium - Patient Summary/Data Operative Procedure(s) Performed: None Complications: None Consults: Consultations 11/14/17 17:42 Consult to Case Management [CONS] Routine Consult to Cutting Room Supervisor [CONS] Routine Consult to Engineering Patternmaker [CONS] Routine Consult to Spiritual Care [CONS] Routine Labs Pending at D/C: None Recommended Follow-up Testing/Procedures: None Planned Operative Procedure(s) after DC: None Hospital Course: Patient was primarily admitted for medical management of hepatic encephalopathy. He had been doing well with medical compliance but fell short when his daughter left out of town. His care unfortunately, left to someone who was not quite familiar with his medical illness. As a result, he got worse and subsequently taken to the hospital for further management. On presentation he was confused and with considerably elevated ammonia level of 189. He was treated with increased frequency of his home dose lactulose and his xifaxan was continued. Immediately, he improved on this regiment. His hospital course was uncomplicated and the rest of his chronic medical illness remained stable during this admission. All his home medications were renewed and a request for gabapentin for his peripheral neuropathy was also provided per daughter's request. Prior to discharge, his daughter and I discussed a better care plan for him wherein he did not need to travel far to see a provider given the distance from home to [place]. I recommended that they see a nearby provider whether it be a physician or [facility] [place]. As usual, the patient was advised to take all home medications as directed. He was further advised to call or follow up with his primary care doctor for any questions or concerns after discharge. The patient expressed understanding and in agreement with the plans as discussed above. All questions were answered. - Patient Instructions Diet: Heart Healthy Diet, Usual Diet as Tolerated, Diabetic Diet, Weight Loss Diet Activity: As Tolerated Driving: Do Not Drive Showering/Bathing: May Shower Notify Provider of: Fever, Increased Pain, Swelling and Redness, Nausea and/or Vomiting Other/Special Instructions: - Please take all medications as directed. - Check your glucoses at least 3x/day and show log on follow up appointment with your PCP. - Call your family doctor for any questions or concerns after discharge. - Follow up with PCP in 1-2 week. - Come back or seek immediate care should your symptoms persist or get worse - Discharge Plan Prescriptions/Med Rec: Cholecalciferol (Vitamin D3) [Vitamin D3] 2,000 unit PO DAILY #30 cap Gabapentin [Neurontin] 200 mg PO BID #120 capsule Insulin Aspart [Novolog Flexpen] 1 unit SQ TIDMEALS PRN #1 ml PRN Reason: Hyperglycemia Insulin Detemir [Levemir] 20 units SUBCUT DAILY #1 pen Lactulose 40 gm PO TID #90 bottle Pantoprazole [ProTONIX] 40 mg PO DAILY #30 tab.cr Rifaximin [Xifaxan] 550 mg PO BID #60 tablet Spironolactone 50 mg PO BID #60 tablet Home Medications: Home Meds Cholecalciferol (Vitamin D3) [Vitamin D3] 2,000 unit PO DAILY #30 cap 11/16/17 [ Rx] Gabapentin [Neurontin] 200 mg PO BID #120 capsule 11/16/17 [Rx] Insulin Aspart [Novolog Flexpen] 1 unit SQ TIDMEALS PRN #1 ml 11/16/17 [Rx] Insulin Detemir [Levemir] 20 units SUBCUT DAILY #1 pen 11/16/17 [Rx] Lactulose 40 gm PO TID #90 bottle 11/16/17 [Rx] Pantoprazole [ProTONIX] 40 mg PO DAILY #30 tab.cr 11/16/17 [Rx] Rifaximin [Xifaxan] 550 mg PO BID #60 tablet 11/16/17 [Rx] Spironolactone 50 mg PO BID #60 tablet 11/16/17 [Rx] Patient Handouts: Alcoholic Liver Disease, [id number], Diabetes and Foot Care , Hepatic Encephalopathy, Diabetes Mellitus and Standards of Medical Care, Hypomagnesemia, Type 2 Diabetes Mellitus, Self Care, Adult, [id number], How to Avoid Diabetes Mellitus Problems, Obesity, Adult, [id number] Referrals: Allan Redmond PA-C [Primary Care Provider] - - Discharge Summary/Plan Comment DC Time >30 min.: Yes (45 mins) Discharge Summary/Plan Comment: Discharge to Home - General Info Date of Service: 11/16/17 Admission Dx/Problem (Free Text: Admission Diagnosis/Problem Admission Diagnosis/Problem Hepatic encephalopathy Subjective Update: Follow Up Functional Status: Reports: Pain Controlled, Tolerating Diet, Ambulating, Urinating - Review of Systems General: Denies: Fever, Weakness, Fatigue, Malaise, Chills HEENT: Reports: No Symptoms Pulmonary: Denies: Shortness of Breath Cardiovascular: Denies: Chest Pain, Dyspnea on Exertion, Edema Gastrointestinal: Reports: Diarrhea. Denies: Abdominal Pain, Decreased Appetite , Difficulty Swallowing, Nausea, Vomiting Genitourinary: Reports: No Symptoms Musculoskeletal: Reports: No Symptoms Skin: Denies: Cyanosis, Jaundice, Mottled, Pallor, Diaphoresis, Bruising, Rash Neurological: Denies: Confusion, Seizure, Difficulty Walking, Weakness Psychiatric: Denies: Confusion, Mood Lability, Agitation Systems Review Comment: No overnight or acute issues. He is doing relatively well. He has no complaints and ready to go home. - Patient Data Vitals - Most Recent: Last Vital Signs Temp 37.0 C 11/16/17 07:24 Pulse 76 11/16/17 07:24 Resp 22 H 11/16/17 07:24 BP 101/38 L 11/16/17 07:24 Pulse Ox 97 11/16/17 07:24 Weight - Most Recent: 122.334 kg I&O - Last 24 hours: Intake & Output 11/15/17 11/16/17 11/16/17 22:59 06:59 14:59 Intake Total 1640 1100 Output Total 4 1600 Balance 1636 -500 Lab Results - Last 24 hrs: Laboratory Results - last 24 hr 11/15/17 11/15/17 11/15/17 Range/Units 11:20 17:33 21:26 WBC (4.23-9.07) K/mm3 RBC (4.63-6.08) M/mm3 Hgb (13.7-17.5) gm/L Hct (40.1-51.0) % MCV (79.0-92.2) fl MCH (25.7-32.2) pg MCHC (32.2-35.5) g/dl RDW Std Deviation (35.1-43.9) fL Plt Count (163-337) K/mm3 MPV (9.4-12.3) fl Neut % (Auto) (34.0-67.9) % Lymph % (Auto) (21.8-53.1) % [place] % (Auto) (5.3-12.2) % Eos % (Auto) (0.8-7.0) Baso % (Auto) (0.1-1.2) % Neut # (Auto) (1.78-5.38) K/mm3 Lymph # (Auto) (1.32-3.57) K/mm3 [place] # (Auto) (0.30-0.82) K/mm3 Eos # (Auto) (0.04-0.54) K/mm3 Baso # (Auto) (0.01-0.08) K/mm3 Manual Slide Review Sodium (136-145) mEq/L Potassium (3.5-5.1) mEq/L Chloride (98-107) mEq/L Carbon Dioxide (21-32) mEq/L Anion Gap (5-15) BUN (7-18) mg/dL Creatinine (0.7-1.3) mg/dL Est Cr Clr Drug Dosing mL/min Estimated GFR (MDRD) (>60) mL/min BUN/Creatinine Ratio (14-18) Glucose (74-106) mg/dL POC Glucose 300 H 271 H 299 H (70-105) mg/dL Calcium (8.5-10.1) mg/dL Magnesium (1.8-2.4) mg/dl Total Bilirubin (0.2-1.0) mg/dL AST (15-37) U/L ALT (16-63) U/L Alkaline Phosphatase (46-116) U/L Total Protein (6.4-8.2) g/dl Albumin (3.4-5.0) g/dl Globulin gm/dL Albumin/Globulin Ratio (1-2) 11/16/17 11/16/17 11/16/17 Range/Units 05:46 05:48 05:48 WBC 3.49 L (4.23-9.07) K/mm3 RBC 3.11 L (4.63-6.08) M/mm3 Hgb 10.1 L (13.7-17.5) gm/L Hct 28.4 L (40.1-51.0) % MCV 91.3 (79.0-92.2) fl MCH 32.5 H (25.7-32.2) pg MCHC 35.6 H (32.2-35.5) g/dl RDW Std Deviation 53.5 H (35.1-43.9) fL Plt Count 40 L (163-337) K/mm3 MPV 9.2 L (9.4-12.3) fl Neut % (Auto) 57.3 (34.0-67.9) % Lymph % (Auto) 27.2 (21.8-53.1) % [place] % (Auto) 12.6 H (5.3-12.2) % Eos % (Auto) 2.6 (0.8-7.0) Baso % (Auto) 0.3 (0.1-1.2) % Neut # (Auto) 2.00 (1.78-5.38) K/mm3 Lymph # (Auto) 0.95 L (1.32-3.57) K/mm3 [place] # (Auto) 0.44 (0.30-0.82) K/mm3 Eos # (Auto) 0.09 (0.04-0.54) K/mm3 Baso # (Auto) 0.01 (0.01-0.08) K/mm3 Manual Slide Review Abnormal smear Sodium 135 L (136-145) mEq/L Potassium 4.0 (3.5-5.1) mEq/L Chloride 104 (98-107) mEq/L Carbon Dioxide 22 (21-32) mEq/L Anion Gap 13.0 (5-15) BUN 12 (7-18) mg/dL Creatinine 1.1 (0.7-1.3) mg/dL Est Cr Clr Drug Dosing 75.58 mL/min Estimated GFR (MDRD) > 60 (>60) mL/min BUN/Creatinine Ratio 10.9 L (14-18) Glucose 294 H (74-106) mg/dL POC Glucose 294 H (70-105) mg/dL Calcium 8.3 L (8.5-10.1) mg/dL Magnesium 1.3 L (1.8-2.4) mg/dl Total Bilirubin 2.4 H (0.2-1.0) mg/dL AST 26 (15-37) U/L ALT 18 (16-63) U/L Alkaline Phosphatase 80 (46-116) U/L Total Protein 6.3 L (6.4-8.2) g/dl Albumin 1.9 L (3.4-5.0) g/dl Globulin 4.4 gm/dL Albumin/Globulin Ratio 0.4 L (1-2) 11/16/17 Range/Units 06:19 WBC (4.23-9.07) K/mm3 RBC (4.63-6.08) M/mm3 Hgb (13.7-17.5) gm/L Hct (40.1-51.0) % MCV (79.0-92.2) fl MCH (25.7-32.2) pg MCHC (32.2-35.5) g/dl RDW Std Deviation (35.1-43.9) fL Plt Count (163-337) K/mm3 MPV (9.4-12.3) fl Neut % (Auto) (34.0-67.9) % Lymph % (Auto) (21.8-53.1) % [place] % (Auto) (5.3-12.2) % Eos % (Auto) (0.8-7.0) Baso % (Auto) (0.1-1.2) % Neut # (Auto) (1.78-5.38) K/mm3 Lymph # (Auto) (1.32-3.57) K/mm3 [place] # (Auto) (0.30-0.82) K/mm3 Eos # (Auto) (0.04-0.54) K/mm3 Baso # (Auto) (0.01-0.08) K/mm3 Manual Slide Review Sodium (136-145) mEq/L Potassium (3.5-5.1) mEq/L Chloride (98-107) mEq/L Carbon Dioxide (21-32) mEq/L Anion Gap (5-15) BUN (7-18) mg/dL Creatinine (0.7-1.3) mg/dL Est Cr Clr Drug Dosing mL/min Estimated GFR (MDRD) (>60) mL/min BUN/Creatinine Ratio (14-18) Glucose (74-106) mg/dL POC Glucose 328 H (70-105) mg/dL Calcium (8.5-10.1) mg/dL Magnesium (1.8-2.4) mg/dl Total Bilirubin (0.2-1.0) mg/dL AST (15-37) U/L ALT (16-63) U/L Alkaline Phosphatase (46-116) U/L Total Protein (6.4-8.2) g/dl Albumin (3.4-5.0) g/dl Globulin gm/dL Albumin/Globulin Ratio (1-2) Med Orders - Current: Current Medications Acetaminophen (Tylenol) 650 mg PO Q4H PRN PRN Reason: Pain (Mild 1-3)/fever Albuterol/Ipratropium (Duoneb 3.0-0.5 Mg/3 Ml) 3 ml NEB Q4H PRN PRN Reason: Shortness Of Breath/wheezing Cholecalciferol (Vitamin D3) 2,000 units PO DAILY [facility] Last Admin: 11/15/17 08:20 Dose: 2,000 units Dextrose/Water (Dextrose 50% In Water) 50 ml IVPUSH ASDIRECTED PRN PRN Reason: Hypoglycemia Hydralazine HCl (Apresoline) 20 mg IVPUSH Q4H PRN PRN Reason: Hypertension Hydromorphone HCl (Dilaudid) 0.25 mg IVPUSH Q2H PRN PRN Reason: Pain (severe 7-10) Promethazine HCl 12.5 mg/ (Sodium Chloride) 50.5 mls @ 100 mls/hr IV Q6H PRN PRN Reason: Nausea/Vomiting Magnesium Sulfate 2 gm/ Premix 50 mls @ 25 mls/hr IV ONETIME ONE Stop: 11/16/17 09:10 Insulin Aspart (Novolog) 0 unit SUBCUT QIDACANDBED [facility]; Protocol Last Admin: 11/15/17 22:20 Dose: 3 units Insulin Detemir (Levemir) 20 unit SUBCUT DAILY [facility] Last Admin: 11/15/17 10:29 Dose: 20 units Lactulose (Cephulac) 40 gm PO QID [facility] Last Admin: 11/15/17 22:12 Dose: 40 gm Lorazepam (Ativan) 2 mg IVPUSH Q4H PRN PRN Reason: Seizures Lorazepam (Ativan) 1 mg IV Q6H PRN PRN Reason: Anxiety Magnesium Sulfate (Pharmacy To Dose - Magnesium Replacement) 0 dose .XX ASDIRECTED PRN PRN Reason: RX TO WATCH MAG LEVELS Metoprolol Tartrate (Lopressor) 5 mg IVPUSH Q4H PRN PRN Reason: Tachycardia Ondansetron HCl (Zofran) 4 mg IV Q6H PRN PRN Reason: Nausea/Vomiting Oxycodone HCl (Oxycodone) 5 mg PO Q4H PRN PRN Reason: Pain (moderate 4-6) Pantoprazole Sodium (Protonix) 40 mg PO DAILY [facility] Last Admin: 11/15/17 08:20 Dose: 40 mg Potassium Chloride (Pharmacy To Dose - Potassium Replacement) 0 dose .XX ASDIRECTED PRN PRN Reason: RX TO WATCH K LEVELS Rifaximin (Xifaxan) 550 mg PO BID [facility] Last Admin: 11/15/17 22:12 Dose: 550 mg Sodium Chloride (Saline Flush) 10 ml FLUSH ASDIRECTED PRN PRN Reason: Keep Vein Open Last Admin: 11/14/17 14:19 Dose: 10 ml Spironolactone (Aldactone) 50 mg PO BID [facility] Last Admin: 11/15/17 22:12 Dose: 50 mg Temazepam (Restoril) 15 mg PO BEDTIME PRN PRN Reason: Sleep Discontinued Medications Sodium Chloride (Normal Saline) 500 mls @ 999 mls/hr IV .BOLUS ONE Stop: 11/14/17 14:49 Last Admin: 11/14/17 14:28 Dose: 999 mls/hr Magnesium Sulfate 2 gm/ Premix 50 mls @ 50 mls/hr IV Q1H [facility] Stop: 11/14/17 19:59 Last Admin: 11/14/17 19:40 Dose: 50 mls/hr Magnesium Sulfate 2 gm/ Premix 50 mls @ 25 mls/hr IV Q2H [facility] Stop: 11/15/17 11:29 Last Admin: 11/15/17 10:29 Dose: 25 mls/hr Insulin Aspart (Novolog) 0 unit SUBCUT QIDACANDBED [facility]; Protocol Last Admin: 11/15/17 08:19 Dose: 6 unit Lactulose (Cephulac) 40 gm PO ONETIME ONE Stop: 11/14/17 14:23 Last Admin: 11/14/17 14:42 Dose: 40 gm Lactulose (Cephulac) 40 gm PO ONETIME ONE Stop: 11/14/17 18:26 Last Admin: 11/14/17 18:56 Dose: 40 gm - Exam General: Reports: Alert, Oriented, Cooperative, No Acute Distress, Other (Obese) HEENT: Reports: Pupils Equal, Pupils Reactive, EOMI, Mucous Membr. Moist/[place]. Denies: Scleral Icterus Neck: Reports: Supple, Trachea Midline, No JVD, No Thyromegaly Lungs: Reports: Clear to Auscultation, Normal Respiratory Effort Cardiovascular: Reports: Regular Rate, Regular Rhythm GI/Abdominal Exam: Normal Bowel Sounds, Soft, Non-Tender, No Organomegaly, No Abnormal Bruit, No Mass, Pelvis Stable, Other (Obese) (Male) Exam: Deferred Rectal (Males) Exam: Deferred Back Exam: Reports: Normal Inspection, Decreased Range of Motion Extremities: Normal Inspection, Normal Range of Motion, Non-Tender, No Pedal Edema, Normal Capillary Refill Skin: Reports: Warm, Dry, Intact Neurological: Reports: No New Focal Deficit Psy/Mental Status: Reports: Alert, Normal Affect, Normal Mood
[2017-11-16] MEDS: Insulin Aspart 100 Units/ML 3 ML Pen SUBCUT SCH ×2 (08:28→11:53)
[2017-11-16] MEDS: Insulin Detemir 100 Units/ML 3 ML Pen SUBCUT SCH (08:28)
[2017-11-16] MEDS: Rifaximin 550 MG Tab PO SCH (08:29)
[2017-11-16] MEDS: Spironolactone 25 MG Tab PO SCH (08:29)
[2017-11-16] MEDS: Lactulose Soln 10 GM/15 ML 30 ML UD Cup PO SCH (08:29)
[2017-11-16] MEDS: Pantoprazole 40 MG Tab.CR PO SCH (08:29)
[2017-11-16] MEDS: Cholecalciferol (Vitamin D3) 1,000 Unit Tab PO SCH (08:30)
[2017-11-16] MEDS ORDERED: Magnesium Sulfate/Water 2 GM in Premix Bag 1 BAG IV SCH (10:00)
[2017-11-16] MEDS ORDERED: Pneumococcal 13-Valent Conjugate Vaccine 0.5 ML Syringe IM ONE (12:02)
[2017-11-16 12:31] VITALS: BP 125/51
== END 2017-11-16 12:30 | disposition home or self-care (01) | DRG 280 ==
LOC: JD.ED 13:48 → JD.MS 17:46 → UNDOADMIN 17:46
PROVIDERS: ADMIT Internal Medicine; ATTEND Internal Medicine
PROC: 3E0234Z Introduction of Serum, Toxoid and Vaccine into Muscle, Percutaneous Approach (ICD-10-PCS; principal; 2017-11-16)
DX: K70.31 Alcoholic cirrhosis of liver with ascites (principal); K72.90 Hepatic failure, unspecified without coma; D61.818 Other pancytopenia; E46 Unspecified protein-calorie malnutrition; I11.0 Hypertensive heart disease with heart failure; I50.9 Heart failure, unspecified; E83.42 Hypomagnesemia; E11.65 Type 2 diabetes mellitus with hyperglycemia; I85.00 Esophageal varices without bleeding; K73.9 Chronic hepatitis, unspecified; K21.9 Gastro-esophageal reflux disease without esophagitis; F10.21 Alcohol dependence, in remission; E03.9 Hypothyroidism, unspecified; D50.9 Iron deficiency anemia, unspecified; E66.9 Obesity, unspecified; Z68.36 Body mass index [BMI] 36.0-36.9, adult; Z91.14 Patient's other noncompliance with medication regimen; Z23 Encounter for immunization; Z86.14 Personal history of Methicillin resistant Staphylococcus aureus infection; Z87.891 Personal history of nicotine dependence; Z79.4 Long term (current) use of insulin; Z79.899 Other long term (current) drug therapy
CPT/HCPCS: 36415; 71045; 71045-26; 80053; 82140; 82962; 83605; 83735; 85025; 85610; 87641; 90471; 90670; 93005; 93010; 96360; 99284; 99285-25; A9270-GY; G0480; J1815-GY; J3475; J7040; J7050

== ENCOUNTER 2018-01-08 12:01 | Inpatient (IN) | payer BC ==
--- NOTE | 2018-01-08 12:52 | EDM.PDOC ---
ED HPI GENERAL MEDICAL PROBLEM - General Chief Complaint: Neurological Problem Stated Complaint: SENT BY [facility] Time Seen by Provider: 01/08/18 12:22 Source of Information: Reports: Patient, Old Records (sent from Dr. Moreland's office), Provider (Dr. Moreland) History Limitations: Reports: Altered Mental Status - History of Present Illness INITIAL COMMENTS - FREE TEXT/NARRATIVE: I was contacted by Dr. Moreland at 11:16, being notified that he was sending the patient to the ED to be admitted to the hospital. He stated that this was the first time that he had met the patient, and that the patient was confused, disoriented to time, although oriented to person and place. He had run tests, including a CBC, CMP, and ammonia level, finding the ammonia level to be elevated at 89. He felt that the patient was suffering from hepatic encephalopathy. Here in the ED, the patient is found to be hemodynamically stable. He is oriented to person and location, but disoriented to the year and day of the week. He denies having any pain. - Related Data Allergies Allergy/AdvReac Type Severity Reaction Status Date / Time No Known Allergies Allergy Verified 01/08/18 12:12 Home Meds: Home Meds Cholecalciferol (Vitamin D3) [Vitamin D3] 2,000 unit PO DAILY #30 cap 11/16/17 [ Rx] Gabapentin [Neurontin] 200 mg PO BID #120 capsule 11/16/17 [Rx] Insulin Aspart [Novolog Flexpen] 1 unit SQ TIDMEALS PRN #1 ml 11/16/17 [Rx] Insulin Detemir [Levemir] 20 units SUBCUT DAILY #1 pen 11/16/17 [Rx] Pantoprazole [ProTONIX] 40 mg PO DAILY #30 tab.cr 11/16/17 [Rx] Rifaximin [Xifaxan] 550 mg PO BID #60 tablet 11/16/17 [Rx] Spironolactone 50 mg PO BID #60 tablet 11/16/17 [Rx] Lactulose 40 gm PO TID 01/08/18 [History] Magnesium Oxide 800 mg PO BID 01/08/18 [History] Ondansetron HCl [Zofran] 4 mg PO Q6H PRN 01/08/18 [History] metFORMIN [Glucophage XR] 500 mg PO BID 01/08/18 [History] Past Medical History Cardiovascular History: Reports: Hypertension Gastrointestinal History: Reports: Cirrhosis (alcoholic), GERD, GI Bleed ( esophageal varices) Psychiatric History: Reports: Addiction (alcoholic, in recovery) Endocrine/Metabolic History: Reports: Diabetes, Type II, Hypothyroidism, Obesity /BMI 30+ Hematologic History: Reports: Anemia, Blood Transfusion(s) Dermatologic History: Reports: Cellulitis, Eczema - Infectious Disease History Infectious Disease History: Reports: Hepatitis non A,B,C, Measles, MRSA - Past Surgical History GI Surgical History: Reports: Other (See Below) (TIPS) Social & Family History - Family History Family Medical History: Noncontributory - Tobacco Use Smoking Status *Q: Current Some Day Smoker Years of Tobacco use: 30 Packs/Tins Daily: 0.1 - Caffeine Use Caffeine Use: Reports: Other Other Caffeine Use: unable to obtain Caffeine Use Comment: unable to obtain, patient unresponsive - Recreational Drug Use Recreational Drug Use: No - Living Situation & Occupation Living situation: Reports: , with Family Occupation: Employed ED ROS GENERAL - Review of Systems Review Of Systems: ROS reveals no pertinent complaints other than HPI. - Physical Exam Exam: See Below Exam Limited By: No Limitations General Appearance: Alert, WD/WN, No Apparent Distress Eye Exam: Bilateral Eye: Normal Inspection Ears: Normal External Exam, Hearing Grossly Normal Nose: Normal Inspection, No Blood Throat/Mouth: Normal Inspection, Normal Lips, Normal Voice, No Airway Compromise Head Exam: Atraumatic, Normocephalic Neck: Normal Inspection, Full Range of Motion Respiratory/Chest: No Respiratory Distress, Lungs Clear, Normal Breath Sounds, No Accessory Muscle Use Cardiovascular: Normal Peripheral Pulses, Regular Rate, Rhythm, No Gallop, No JVD, No Murmur, No Rub GI/Abdominal: Normal Bowel Sounds, Soft, Non-Tender, No Organomegaly, No Distention, No Abnormal Bruit, No Mass, Other (Obese) (Male) Exam: Deferred Rectal (Males) Exam: Deferred Neuro Exam (Abbreviated): Alert, No Motor/Sensory Deficits, Confused (Oriented to person and place, but not year or day of the week. Had difficulty answering questions about his lactulose in bowel habits.) Back Exam: Normal Inspection, Full Range of Motion, NT Extremities: Normal Inspection, Normal Range of Motion, Normal Capillary Refill , Other (1+ pretibial edema bilaterally) Psychiatric: Normal Affect Skin Exam: Warm, Dry, Intact, Normal Color, No Rash Course - Vital Signs Last Recorded V/S: Last Vital Signs Temp 36.5 C 01/08/18 12:12 Pulse 68 01/08/18 12:12 Resp 20 01/08/18 12:12 BP 126/61 01/08/18 12:12 Pulse Ox 100 01/08/18 12:12 - Orders/Labs/Meds Orders: Active Orders 24 hr Category Date Time Status Admission Status [Patient Status] [ADT] Routine ADT 01/08/18 14:12 Active Meds: Medications Discontinued Medications Generic Name Dose Route Start Last Admin Trade Name Freq PRN Reason Stop Dose Admin Erythromycin 250 mg 01/08/18 12:53 01/08/18 13:08 Jed-Tab PO 01/08/18 12:54 250 mg ONETIME ONE Administration Lactulose 60 gm 01/08/18 12:53 01/08/18 13:06 Cephulac PO 01/08/18 12:54 60 gm ONETIME STA Administration - Re-Assessments/Exams Free Text/Narrative Re-Assessment/Exam: 01/08/18 12:[address] Nuno here in the ED at 12:53. She accepts the patient for placement into observation. In the meantime, she would like us to give lactulose 60 mg and erythromycin 250 mg orally. Departure - Departure Time of Disposition: 12:55 Disposition: Refer to Observation Condition: Fair Clinical Impression: Hepatic encephalopathy - Discharge Information - My Orders Last 24 Hours: My Active Orders 01/08/18 14:12 Admission Status [Patient Status] [ADT] Routine - Assessment/Plan Last 24 Hours: My Active Orders 01/08/18 14:12 Admission Status [Patient Status] [ADT] Routine
[2018-01-08] MEDS ORDERED: Lactulose Soln 10 GM/15 ML 30 ML UD Cup PO STA (12:53)
[2018-01-08] MEDS ORDERED: Ondansetron 4 MG Tab.DIS PO PRN (16:00)
--- NOTE | 2018-01-08 16:00 | PCM.HP ---
H&P History of Present Illness - General Date of Service: 01/08/18 Admit Problem/Dx: Admission Diagnosis/Problem Admission Diagnosis/Problem Hepatic encephalopathy Source of Information: Provider History Limitations: Reports: Altered Mental Status - History of Present Illness Initial Comments - Free Text/Narative: 57 year old male with history of liver cirrhosis presents w/ mental status change. He was seen earlier by a new PCP. An ammonia level was checked which was elevated at 89. The patient was confused, and instructed to seek medical intervention in the ED at [facility]. He denied fever/chills/SOB, CP, syncopal/presyncopal episode. He received lactulose 60 gm/erythromycin 250 mg was given. The patient is a full code, admitted to obs with telemetry. Onset of Symptoms: Reports: Unknown/Unsure Duration of Symptoms: Reports: Day(s):, Getting Worse Location: Reports: Generalized Quality: Reports: Same as Previous Episode Severity: Moderate Improves with: Reports: Medication Worsens with: Reports: None Associated Symptoms: Reports: Confusion, Weakness - Related Data Allergies/Adverse Reactions: Allergies Allergy/AdvReac Type Severity Reaction Status Date / Time No Known Allergies Allergy Verified 01/08/18 12:12 Home Medications: Home Meds Cholecalciferol (Vitamin D3) [Vitamin D3] 2,000 unit PO DAILY #30 cap 11/16/17 [ Rx] Gabapentin [Neurontin] 200 mg PO BID #120 capsule 11/16/17 [Rx] Insulin Aspart [Novolog Flexpen] 1 unit SQ TIDMEALS PRN #1 ml 11/16/17 [Rx] Insulin Detemir [Levemir] 20 units SUBCUT DAILY #1 pen 11/16/17 [Rx] Pantoprazole [ProTONIX] 40 mg PO DAILY #30 tab.cr 11/16/17 [Rx] Rifaximin [Xifaxan] 550 mg PO BID #60 tablet 11/16/17 [Rx] Spironolactone 50 mg PO BID #60 tablet 11/16/17 [Rx] Lactulose 40 gm PO TID 01/08/18 [History] Magnesium Oxide 800 mg PO BID 01/08/18 [History] Ondansetron HCl [Zofran] 4 mg PO Q6H PRN 01/08/18 [History] metFORMIN [Glucophage XR] 500 mg PO BID 01/08/18 [History] Past Medical History Cardiovascular History: Reports: Hypertension Other Cardiovascular History: UNABLE TO OBTAIN INFORMATION PT IS NOT VERBALLY RESPONSIVE AT THIS TIME Respiratory History: Reports: SOB Other Respiratory History: UNABLE TO OBTAIN INFORMATION PT IS NOT VERBALLY RESPONSIVE AT THIS TIME Gastrointestinal History: Reports: Cirrhosis, GERD, GI Bleed Other Gastrointestinal History: liver failure;stomach bleed. UNABLE TO OBTAIN INFORMATION PT IS NOT VERBALLY RESPONSIVE AT THIS TIME Genitourinary History: Reports: Other (See Below) Other Genitourinary History: UNABLE TO OBTAIN INFORMATION PT IS NOT VERBALLY RESPONSIVE AT THIS TIME Other Musculoskeletal History: UNABLE TO OBTAIN INFORMATION PT IS NOT VERBALLY RESPONSIVE AT THIS TIME Neurological History: Reports: Other (See Below) Other Neuro History: hepatic encephalopathy Psychiatric History: Reports: Addiction Other Psychiatric History: Alcoholism-recovered addict Endocrine/Metabolic History: Reports: Diabetes, Type II, Hypothyroidism, Obesity /BMI 30+ Hematologic History: Reports: Anemia, Blood Transfusion(s) Other Hematologic History: UNABLE TO OBTAIN INFORMATION PT IS NOT VERBALLY RESPONSIVE AT THIS TIME Other Oncologic History: UNABLE TO OBTAIN INFORMATION PT IS NOT VERBALLY RESPONSIVE AT THIS TIME Dermatologic History: Reports: Cellulitis, Eczema Other Dermatologic History: 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 History of cellulitis to both legs. UNABLE TO OBTAIN INFORMATION PT IS NOT VERBALLY RESPONSIVE AT THIS TIME - Infectious Disease History Infectious Disease History: Reports: Hepatitis non A,B,C, Measles, MRSA - Past Surgical History GI Surgical History: Reports: Other (See Below) (TIPS) Social & Family History - Family History Family Medical History: Noncontributory - Tobacco Use Smoking Status *Q: Current Some Day Smoker Years of Tobacco use: 30 Packs/Tins Daily: 0.1 - Caffeine Use Caffeine Use: Reports: Other Other Caffeine Use: unable to obtain Caffeine Use Comment: unable to obtain, patient unresponsive - Recreational Drug Use Recreational Drug Use: No - Living Situation & Occupation Living situation: Reports: , with Family Occupation: Employed H&P Review of Systems - Review of Systems: Review Of Systems: See Below General: Reports: Weakness HEENT: Reports: Visual Changes Pulmonary: Reports: No Symptoms Cardiovascular: Reports: No Symptoms Gastrointestinal: Reports: No Symptoms Genitourinary: Reports: No Symptoms Musculoskeletal: Reports: No Symptoms Skin: Reports: No Symptoms Psychiatric: Reports: Confusion Neurological: Reports: Dizziness, Trouble Speaking, Difficulty Walking Hematologic/Lymphatic: Reports: No Symptoms Immunologic: Reports: No Symptoms Exam - Exam Exam: See Below - Vital Signs Vital Signs: Last Vital Signs Temp 36.5 C 01/08/18 12:12 Pulse 60 01/08/18 14:39 Resp 16 01/08/18 14:39 BP 116/58 L 01/08/18 14:39 Pulse Ox 98 01/08/18 14:39 Weight: 122.47 kg - Exam Quality Assessment: Supplemental Oxygen, DVT Prophylaxis General: Alert, Oriented, Cooperative HEENT: EOMI, Hearing Intact, Pupils Equal, Pupils Reactive, PERRLA Neck: Trachea Midline Lungs: Clear to Auscultation, Normal Respiratory Effort Cardiovascular: Regular Rate, Regular Rhythm GI/Abdominal Exam: Normal Bowel Sounds, Soft, Non-Tender, No Organomegaly, No Distention (Male) Exam: Deferred Rectal (Males) Exam: Deferred Back Exam: Normal Inspection Extremities: Normal Inspection, Non-Tender, Slow Capillary Refill Skin: Warm Neurological: Cranial Nerves Intact, Strength Equal Bilateral, Normal Speech, Sensation Intact Neuro Extensive - Mental Status: Alert, Oriented x3 Neuro Extensive - Motor, Sensory, Reflexes: CN II-XII Intact Psychiatric: Alert - Patient Data Result Diagrams: 01/10/18 05:55 01/10/18 05:55 - Problem List (1) Hepatic encephalopathy SNOMED Code(s): 59580918 ICD Code: K72.90 - HEPATIC FAILURE, UNSPECIFIED WITHOUT COMA Status: Acute Priority: High Current Visit: Yes (2) Hyperammonemia SNOMED Code(s): 8855227 ICD Code: E72.20 - DISORDER OF UREA CYCLE METABOLISM, UNSPECIFIED Status: Acute Priority: High Current Visit: Yes (3) Diabetes mellitus type 2 SNOMED Code(s): 76353323 ICD Code: E11.9 - TYPE 2 DIABETES MELLITUS WITHOUT COMPLICATIONS Status: Chronic Priority: Low Current Visit: No (4) GERD (gastroesophageal reflux disease) SNOMED Code(s): 450667274 ICD Code: K21.9 - GASTRO-ESOPHAGEAL REFLUX DISEASE WITHOUT ESOPHAGITIS Status: Chronic Priority: Low Current Visit: No Qualifiers: Esophagitis presence: esophagitis presence not specified Qualified Code(s) : K21.9 - Gastro-esophageal reflux disease without esophagitis (5) Hypertension SNOMED Code(s): 15586605 ICD Code: I10 - ESSENTIAL (PRIMARY) HYPERTENSION Status: Chronic Priority : Medium Current Visit: No Qualifiers: Hypertension type: unspecified Qualified Code(s): I10 - Essential (primary ) hypertension (6) Obesity SNOMED Code(s): 521518006 ICD Code: E66.9 - OBESITY, UNSPECIFIED Status: Chronic Priority: Medium Current Visit: No (7) Hepatic encephalopathy SNOMED Code(s): 60256897 ICD Code: K72.90 - HEPATIC FAILURE, UNSPECIFIED WITHOUT COMA Status: Resolved Priority: High Current Visit: No Problem List Initiated/Reviewed/Updated: Yes Orders Last 24hrs: Active Orders 24 hr Category Date Time Status Admission Status [Patient Status] [ADT] Routine ADT 01/08/18 14:12 Active Assessment/Plan Comment:: Impression: AMS Hepatic encephalopathy Hyperglycemia Hypomagnesemia Pancytopenia Chronic GERD DM type 2 HTN Obesity, BMI 38.7 Hepatitis Plan: IVF Lactulose/Erythromycin Daily labs Home meds Contact precautions DVT/GI prophylaxis
[2018-01-08] MEDS ORDERED: Sodium Chloride 0.45% 1,000 ML IV SCH (16:15)
[2018-01-08] MEDS ORDERED: 50% Dextrose in Water 50 ML Syringe IVPUSH PRN (17:15)
[2018-01-08] MEDS ORDERED: Lactulose Soln 10 GM/15 ML 30 ML UD Cup PO SCH (20:00)
[2018-01-08] MEDS: Magnesium Oxide 400 MG Tab PO SCH (22:27)
[2018-01-08] MEDS: Spironolactone 25 MG Tab PO SCH (22:27)
[2018-01-08] MEDS: Rifaximin 550 MG Tab PO SCH (22:27)
[2018-01-08] MEDS: Gabapentin 100 MG Cap PO SCH (22:27)
[2018-01-08] MEDS: Insulin Aspart 100 Units/ML 3 ML Pen SUBCUT SCH (22:28)
[2018-01-08] MEDS: Lactulose Soln 10 GM/15 ML 30 ML UD Cup PO SCH (22:28)
[2018-01-09] MEDS: Pantoprazole 40 MG Tab.CR PO SCH (06:04)
--- NOTE | 2018-01-09 06:47 | PCM.PN ---
- General Info Date of Service: 01/09/18 Admission Dx/Problem (Free Text): Admission Diagnosis/Problem Admission Diagnosis/Problem Hepatic encephalopathy Subjective Update: In to see Kaden. He is napping in bed. He has no complaints and says he feels like his abdomen is more soft. He is still somewhat confused and slow to respond to some questions. Nursing has no concerns. Functional Status: Reports: Pain Controlled, Tolerating Diet, Ambulating, Urinating. Denies: New Symptoms - Review of Systems General: Reports: Weakness (improving ). Denies: Fatigue, Malaise, Chills HEENT: Reports: No Symptoms Pulmonary: Reports: No Symptoms. Denies: Shortness of Breath, Pleuritic Chest Pain, Cough, Sputum, Wheezing Cardiovascular: Reports: No Symptoms. Denies: Chest Pain, Palpitations, Dyspnea on Exertion Gastrointestinal: Reports: Diarrhea. Denies: Abdominal Pain, Constipation, Nausea, Vomiting Genitourinary: Reports: No Symptoms Musculoskeletal: Reports: Other (generalized myaglias ) Skin: Reports: No Symptoms Neurological: Reports: Confusion, Weakness. Denies: Pre-Existing Deficit, Trouble Speaking, Difficulty Walking, Change in Speech, Gait Disturbance Psychiatric: Reports: No Symptoms - Patient Data Vitals - Most Recent: Last Vital Signs Temp 98.1 F 01/08/18 22:38 Pulse 83 01/08/18 22:38 Resp 18 01/08/18 22:38 BP 121/57 L 01/08/18 22:38 Pulse Ox 97 01/08/18 22:38 Weight - Most Recent: 270 lb Lab Results Last 24 Hours: Laboratory Results - last 24 hr 01/08/18 01/08/18 01/09/18 Range/Units 18:24 21:28 05:30 WBC 3.12 L (4.23-9.07) K/mm3 RBC 3.16 L (4.63-6.08) M/mm3 Hgb 10.4 L (13.7-17.5) gm/L Hct 29.1 L (40.1-51.0) % MCV 92.1 (79.0-92.2) fl MCH 32.9 H (25.7-32.2) pg MCHC 35.7 H (32.2-35.5) g/dl RDW Std Deviation 52.3 H (35.1-43.9) fL Plt Count 34 L (163-337) K/mm3 MPV 10.8 (9.4-12.3) fl Neut % (Auto) 58.7 (34.0-67.9) % Lymph % (Auto) 28.8 (21.8-53.1) % [place] % (Auto) 10.6 (5.3-12.2) % Eos % (Auto) 1.6 (0.8-7.0) Baso % (Auto) 0.3 (0.1-1.2) % Neut # (Auto) 1.83 (1.78-5.38) K/mm3 Lymph # (Auto) 0.90 L (1.32-3.57) K/mm3 [place] # (Auto) 0.33 (0.30-0.82) K/mm3 Eos # (Auto) 0.05 (0.04-0.54) K/mm3 Baso # (Auto) 0.01 (0.01-0.08) K/mm3 Glucose 389 H (74-106) mg/dL POC Glucose 276 H (70-105) mg/dL 01/09/18 Range/Units 06:16 WBC (4.23-9.07) K/mm3 RBC (4.63-6.08) M/mm3 Hgb (13.7-17.5) gm/L Hct (40.1-51.0) % MCV (79.0-92.2) fl MCH (25.7-32.2) pg MCHC (32.2-35.5) g/dl RDW Std Deviation (35.1-43.9) fL Plt Count (163-337) K/mm3 MPV (9.4-12.3) fl Neut % (Auto) (34.0-67.9) % Lymph % (Auto) (21.8-53.1) % [place] % (Auto) (5.3-12.2) % Eos % (Auto) (0.8-7.0) Baso % (Auto) (0.1-1.2) % Neut # (Auto) (1.78-5.38) K/mm3 Lymph # (Auto) (1.32-3.57) K/mm3 [place] # (Auto) (0.30-0.82) K/mm3 Eos # (Auto) (0.04-0.54) K/mm3 Baso # (Auto) (0.01-0.08) K/mm3 Glucose (74-106) mg/dL POC Glucose 231 H (70-105) mg/dL Med Orders - Current: Current Medications Cholecalciferol (Vitamin D3) 2,000 units PO DAILY [facility] Dextrose/Water (Dextrose 50% In Water) 50 ml IVPUSH ASDIRECTED PRN PRN Reason: Hypoglycemia Furosemide (Lasix) 10 mg IVPUSH DAILY ONE Stop: 01/09/18 08:01 Gabapentin (Neurontin) 200 mg PO BID [facility] Last Admin: 01/08/18 22:27 Dose: 200 mg Insulin Aspart (Novolog) 0 unit SUBCUT QIDACANDBED [facility]; Protocol Last Admin: 01/08/18 22:28 Dose: 5 units Lactulose (Cephulac) 45 gm PO TID [facility] Last Admin: 01/08/18 22:28 Dose: 45 gm Magnesium Oxide (Magnesium Oxide) 800 mg PO BID [facility] Last Admin: 01/08/18 22:27 Dose: 800 mg Ondansetron HCl (Zofran Odt) 4 mg PO Q6H PRN PRN Reason: Nausea Pantoprazole Sodium (Protonix) 40 mg PO DAILY@0700 [facility] Last Admin: 01/09/18 06:04 Dose: 40 mg Rifaximin (Xifaxan) 550 mg PO BID [facility] Last Admin: 01/08/18 22:27 Dose: 550 mg Spironolactone (Aldactone) 50 mg PO BID [facility] Last Admin: 01/08/18 22:27 Dose: 50 mg Discontinued Medications Erythromycin (Jed-Tab) 250 mg PO ONETIME ONE Stop: 01/08/18 12:54 Last Admin: 01/08/18 13:08 Dose: 250 mg Sodium Chloride (Sodium Chloride 0.45%) 1,000 mls @ 100 mls/hr IV ASDIRECTED [facility] Last Admin: 01/08/18 17:56 Dose: 100 mls/hr Lactulose (Cephulac) 60 gm PO ONETIME STA Stop: 01/08/18 12:54 Last Admin: 01/08/18 13:06 Dose: 60 gm Lactulose (Cephulac) 40 gm PO TID DHIRAJ - Exam Quality Assessment: DVT Prophylaxis General: Alert, Oriented (although mildly confused and slow to respond at times ), Cooperative, No Acute Distress HEENT: Pupils Equal, Pupils Reactive, Scleral Icterus Neck: Supple, Trachea Midline, No JVD Lungs: Clear to Auscultation, Normal Respiratory Effort, Decreased Breath Sounds Cardiovascular: Regular Rate, Regular Rhythm, Other (distant heart tones ) GI/Abdominal Exam: Normal Bowel Sounds, Soft, Non-Tender, No Distention (Male) Exam: Deferred Back Exam: Normal Inspection, Full Range of Motion Extremities: Normal Inspection, Normal Range of Motion, Non-Tender, Normal Capillary Refill, Pedal Edema (trace to 1+ bilaterally ) Peripheral Pulses: 1+: Radial (L), Radial (R), Posterior Tibial (L), Posterior Tibial (R), Dorsalis Pedis (L), Dorsalis Pedis (R) Skin: Warm, Dry, Intact Neurological: No New Focal Deficit Psy/Mental Status: Alert, Normal Affect, Normal Mood - Problem List & Annotations (1) Hepatic encephalopathy SNOMED Code(s): 95896608 Code(s): K72.90 - HEPATIC FAILURE, UNSPECIFIED WITHOUT COMA Status: Acute Priority: High Current Visit: Yes (2) Hyperglycemia due to type 2 diabetes mellitus SNOMED Code(s): 419031630890025, 747805353469532 Code(s): E11.65 - TYPE 2 DIABETES MELLITUS WITH HYPERGLYCEMIA Status: Acute Priority: High Current Visit: Yes Qualifiers: Diabetes mellitus oil heaterman insulin use: without oil heaterman use Qualified Code(s): E11.65 - Type 2 diabetes mellitus with hyperglycemia (3) Poorly controlled diabetes mellitus SNOMED Code(s): 307967105, 842853210 Code(s): E11.65 - TYPE 2 DIABETES MELLITUS WITH HYPERGLYCEMIA Status: Acute Priority: High Current Visit: Yes (4) CHF, Congestive heart failure SNOMED Code(s): 96675581 Code(s): I50.9 - HEART FAILURE, UNSPECIFIED Status: Chronic Priority: Medium Current Visit: No (5) Cirrhosis of liver SNOMED Code(s): 07157848 Code(s): K74.60 - UNSPECIFIED CIRRHOSIS OF LIVER Status: Chronic Priority : High Current Visit: No (6) Esophageal varices SNOMED Code(s): 10387173 Code(s): I85.00 - ESOPHAGEAL VARICES WITHOUT BLEEDING Status: Chronic Priority: Medium Current Visit: No Onset Date: 02/20/14 Annotation/Comment :: by history (7) GERD (gastroesophageal reflux disease) SNOMED Code(s): 891909962 Code(s): K21.9 - GASTRO-ESOPHAGEAL REFLUX DISEASE WITHOUT ESOPHAGITIS Status: Chronic Priority: Low Current Visit: No Qualifiers: Esophagitis presence: esophagitis presence not specified Qualified Code(s) : K21.9 - Gastro-esophageal reflux disease without esophagitis (8) Hepatitis non A non B SNOMED Code(s): 795475775 Code(s): B17.8 - OTHER SPECIFIED ACUTE VIRAL HEPATITIS Status: Chronic Priority: Medium Current Visit: No (9) Hyperammonemia SNOMED Code(s): 5839902 Code(s): E72.20 - DISORDER OF UREA CYCLE METABOLISM, UNSPECIFIED Status: Acute Priority: High Current Visit: Yes (10) Hypertension SNOMED Code(s): 28850975 Code(s): I10 - ESSENTIAL (PRIMARY) HYPERTENSION Status: Chronic Priority : Medium Current Visit: No Qualifiers: Hypertension type: unspecified Qualified Code(s): I10 - Essential (primary ) hypertension (11) Iron deficiency anemia SNOMED Code(s): 17309894 Code(s): D50.9 - IRON DEFICIENCY ANEMIA, UNSPECIFIED Status: Chronic Priority: Medium Current Visit: No Qualifiers: Iron deficiency anemia type: unspecified iron deficiency Qualified Code(s) : D50.9 - Iron deficiency anemia, unspecified (12) Obesity SNOMED Code(s): 754017802 Code(s): E66.9 - OBESITY, UNSPECIFIED Status: Chronic Priority: Medium Current Visit: No (13) S/P TIPS (transjugular intrahepatic portosystemic shunt) SNOMED Code(s): 229956044, 087807590 Code(s): Z95.828 - PRESENCE OF OTHER VASCULAR IMPLANTS AND GRAFTS Status: Chronic Priority: Medium Current Visit: No (14) Hypomagnesemia SNOMED Code(s): 154648889 Code(s): E83.42 - HYPOMAGNESEMIA Status: Acute Priority: High Current Visit: Yes (15) Pancytopenia SNOMED Code(s): 691712240 Code(s): D61.818 - OTHER PANCYTOPENIA Status: Chronic Priority: Medium Current Visit: Yes - Problem List Review Problem List Initiated/Reviewed/Updated: Yes - Plan Plan:: Assessment/Plan: Acute: Hepatic Encephalopathy - Acute on Chronic - 2/2 Advanced Liver Disease and Medical Non-compliance - Ammonia level was 89-->136-->117 - UA ordered - no signs of overt infection - Long history of medical non-compliance - Resume Home Meds - Monitor Ammonia level - Avoid NSAIDs - Lactulose 60g TID, Erythromycin Q8hr - Mentation has improved today - CM was able find PCP closer to home at patient request (in [place]) Hypomagnesemia - Acute on chronic - 1.6 today - On daily magnesium supplementation - Will replete Medical Non-compliance - He is supposed to be on lactulose and xifaxan - Long history of missing/skipping doses of medications - Patient reports he stopped taking lactulose because GI physician told him to stop from GI upset - Reminded patient of importance of continuing medications. Chronic: Advanced Liver Disease from Long Hx/o ETOH Abuse Hx/o Esophageal Varices S/p TIPS Pancytopenia 2/2 Liver Disease, Platelet and Hgb at baseline Hypoalbuminemia, 2/2 Liver Disease Albumin level at baseline DM2 Hyperbilubinemia, 2/2 Advanced Liver Disease Obesity with BMI 38.7 Hypomagnesemia Pancytopenia Plan: Admit to observation --> upgrade to inpatient Routine AM labs Home medications as indicated Continue lactulose and Xifaxan Accu-check BID AM/HS with ISS coverage Aspiration and fall precautions DVT PPx: Compression stockings (Anticoags contraindicated due to low platelet levels) Hold metformin PTOT consult food preparation worker/CM for discharge planning Code status: Full code; PCP: Dr. Moreland
[2018-01-09] MEDS ORDERED: Furosemide 20 MG/2 ML VIAL IVPUSH ONE (08:00)
[2018-01-09] MEDS ORDERED: Magnesium Oxide 400 MG Tab PO ONE (08:12)
[2018-01-09] MEDS: Gabapentin 100 MG Cap PO SCH ×2 (09:28→21:58)
[2018-01-09] MEDS: Lactulose Soln 10 GM/15 ML 30 ML UD Cup PO SCH ×3 (09:28→21:58)
[2018-01-09] MEDS: Rifaximin 550 MG Tab PO SCH ×2 (09:28→21:58)
[2018-01-09] MEDS: Cholecalciferol (Vitamin D3) 1,000 Unit Tab PO SCH (09:28)
[2018-01-09] MEDS: Insulin Aspart 100 Units/ML 3 ML Pen SUBCUT SCH ×4 (09:29→22:05)
[2018-01-09] MEDS: Spironolactone 25 MG Tab PO SCH ×2 (09:29→21:58)
[2018-01-09] MEDS: Magnesium Oxide 400 MG Tab PO SCH ×2 (09:34→21:58)
[2018-01-10] MEDS ORDERED: Aluminum Hydroxide/Magnesium Hydroxide/Simethicone Susp 30 ML Cup PO PRN (00:42)
[2018-01-10] MEDS: Pantoprazole 40 MG Tab.CR PO SCH (06:00)
[2018-01-10] MEDS: Insulin Aspart 100 Units/ML 3 ML Pen SUBCUT SCH ×4 (08:09→22:29)
[2018-01-10] MEDS: Spironolactone 25 MG Tab PO SCH ×2 (08:10→22:22)
[2018-01-10] MEDS: Magnesium Oxide 400 MG Tab PO SCH ×2 (08:12→22:23)
[2018-01-10] MEDS: Cholecalciferol (Vitamin D3) 1,000 Unit Tab PO SCH (08:12)
[2018-01-10] MEDS: Gabapentin 100 MG Cap PO SCH ×2 (08:12→22:23)
[2018-01-10] MEDS: Rifaximin 550 MG Tab PO SCH ×2 (08:12→22:23)
[2018-01-10] MEDS: Lactulose Soln 10 GM/15 ML 30 ML UD Cup PO SCH ×3 (08:13→22:22)
--- NOTE | 2018-01-10 11:24 | PCM.PN ---
- General Info Date of Service: 01/10/18 Admission Dx/Problem (Free Text): Admission Diagnosis/Problem Admission Diagnosis/Problem Hepatic encephalopathy Subjective Update: In to see Kaden. He is lying in bed. He is still somewhat confused although close to baseline. He reports he feels less confused and his vision is much better. "I can see the TV much clearer now." Will stop the erythromycin. Continue lactulose. His ammonia has improved but is still around 80. Will shoot for 60 or less before discharge. Hopeful for discharge tomorrow, pending labs. Functional Status: Reports: Pain Controlled, Tolerating Diet, Ambulating, Urinating. Denies: New Symptoms - Review of Systems General: Reports: Weakness (improved ). Denies: Fever, Fatigue, Malaise HEENT: Reports: No Symptoms. Denies: Eye Pain, Sinus Congestion, Sore Throat Pulmonary: Reports: No Symptoms. Denies: Shortness of Breath, Cough, Sputum, Wheezing Cardiovascular: Reports: No Symptoms. Denies: Chest Pain, Palpitations, Lightheadedness Gastrointestinal: Reports: Diarrhea. Denies: Abdominal Pain, Constipation, Nausea, Vomiting Genitourinary: Reports: No Symptoms Musculoskeletal: Reports: No Symptoms Skin: Reports: No Symptoms Neurological: Reports: Confusion (improved, near baseline now ). Denies: Headache, Numbness, Tingling, Trouble Speaking, Difficulty Walking, Gait Disturbance Psychiatric: Reports: No Symptoms - Patient Data Vitals - Most Recent: Last Vital Signs Temp 98.2 F 01/10/18 08:20 Pulse 83 01/10/18 08:20 Resp 18 01/10/18 08:20 BP 124/55 L 01/10/18 08:20 Pulse Ox 96 01/10/18 08:20 Weight - Most Recent: 259 lb 8 oz I&O - Last 24 Hours: Intake & Output 01/09/18 01/10/18 01/10/18 22:59 06:59 14:59 Intake Total 1100 500 360 Balance 1100 500 360 Lab Results Last 24 Hours: Laboratory Results - last 24 hr 01/09/18 01/09/18 01/09/18 Range/Units 12:21 13:00 17:11 WBC (4.23-9.07) K/mm3 RBC (4.63-6.08) M/mm3 Hgb (13.7-17.5) gm/L Hct (40.1-51.0) % MCV (79.0-92.2) fl MCH (25.7-32.2) pg MCHC (32.2-35.5) g/dl RDW Std Deviation (35.1-43.9) fL Plt Count (163-337) K/mm3 MPV (9.4-12.3) fl Neut % (Auto) (34.0-67.9) % Lymph % (Auto) (21.8-53.1) % Mcpherson % (Auto) (5.3-12.2) % Eos % (Auto) (0.8-7.0) Baso % (Auto) (0.1-1.2) % Neut # (Auto) (1.78-5.38) K/mm3 Lymph # (Auto) (1.32-3.57) K/mm3 Mcpherson # (Auto) (0.30-0.82) K/mm3 Eos # (Auto) (0.04-0.54) K/mm3 Baso # (Auto) (0.01-0.08) K/mm3 Manual Slide Review Sodium (136-145) mEq/L Potassium (3.5-5.1) mEq/L Chloride (98-107) mEq/L Carbon Dioxide (21-32) mEq/L Anion Gap (5-15) BUN (7-18) mg/dL Creatinine (0.7-1.3) mg/dL Est Cr Clr Drug Dosing mL/min Estimated GFR (MDRD) (>60) mL/min BUN/Creatinine Ratio (14-18) Glucose (74-106) mg/dL POC Glucose 290 H 291 H (70-105) mg/dL Calcium (8.5-10.1) mg/dL Magnesium (1.8-2.4) mg/dl Ammonia 117 H (11-32) umol/L C-Reactive Protein (<1.0) mg/dL 01/09/18 01/10/18 01/10/18 Range/Units 22:04 05:55 05:55 WBC 4.32 (4.23-9.07) K/mm3 RBC 3.35 L (4.63-6.08) M/mm3 Hgb 10.9 L (13.7-17.5) gm/L Hct 30.6 L (40.1-51.0) % MCV 91.3 (79.0-92.2) fl MCH 32.5 H (25.7-32.2) pg MCHC 35.6 H (32.2-35.5) g/dl RDW Std Deviation 52.0 H (35.1-43.9) fL Plt Count 43 L (163-337) K/mm3 MPV 9.2 L (9.4-12.3) fl Neut % (Auto) 67.9 (34.0-67.9) % Lymph % (Auto) 20.8 L (21.8-53.1) % Mcpherson % (Auto) 9.5 (5.3-12.2) % Eos % (Auto) 1.6 (0.8-7.0) Baso % (Auto) 0.2 (0.1-1.2) % Neut # (Auto) 2.93 (1.78-5.38) K/mm3 Lymph # (Auto) 0.90 L (1.32-3.57) K/mm3 Mcpherson # (Auto) 0.41 (0.30-0.82) K/mm3 Eos # (Auto) 0.07 (0.04-0.54) K/mm3 Baso # (Auto) 0.01 (0.01-0.08) K/mm3 Manual Slide Review Abnormal smear Sodium 131 L (136-145) mEq/L Potassium 4.6 (3.5-5.1) mEq/L Chloride 102 (98-107) mEq/L Carbon Dioxide 22 (21-32) mEq/L Anion Gap 11.6 (5-15) BUN 14 (7-18) mg/dL Creatinine 1.1 (0.7-1.3) mg/dL Est Cr Clr Drug Dosing 75.58 mL/min Estimated GFR (MDRD) > 60 (>60) mL/min BUN/Creatinine Ratio 12.7 L (14-18) Glucose 322 H (74-106) mg/dL POC Glucose 320 H (70-105) mg/dL Calcium 8.7 (8.5-10.1) mg/dL Magnesium 1.6 L (1.8-2.4) mg/dl Ammonia (11-32) umol/L C-Reactive Protein < 0.2 (<1.0) mg/dL 01/10/18 01/10/18 01/10/18 Range/Units 05:55 06:20 10:58 WBC (4.23-9.07) K/mm3 RBC (4.63-6.08) M/mm3 Hgb (13.7-17.5) gm/L Hct (40.1-51.0) % MCV (79.0-92.2) fl MCH (25.7-32.2) pg MCHC (32.2-35.5) g/dl RDW Std Deviation (35.1-43.9) fL Plt Count (163-337) K/mm3 MPV (9.4-12.3) fl Neut % (Auto) (34.0-67.9) % Lymph % (Auto) (21.8-53.1) % Mcpherson % (Auto) (5.3-12.2) % Eos % (Auto) (0.8-7.0) Baso % (Auto) (0.1-1.2) % Neut # (Auto) (1.78-5.38) K/mm3 Lymph # (Auto) (1.32-3.57) K/mm3 Mcpherson # (Auto) (0.30-0.82) K/mm3 Eos # (Auto) (0.04-0.54) K/mm3 Baso # (Auto) (0.01-0.08) K/mm3 Manual Slide Review Sodium (136-145) mEq/L Potassium (3.5-5.1) mEq/L Chloride (98-107) mEq/L Carbon Dioxide (21-32) mEq/L Anion Gap (5-15) BUN (7-18) mg/dL Creatinine (0.7-1.3) mg/dL Est Cr Clr Drug Dosing mL/min Estimated GFR (MDRD) (>60) mL/min BUN/Creatinine Ratio (14-18) Glucose (74-106) mg/dL POC Glucose 298 H 373 H (70-105) mg/dL Calcium (8.5-10.1) mg/dL Magnesium (1.8-2.4) mg/dl Ammonia 80 H (11-32) umol/L C-Reactive Protein (<1.0) mg/dL Med Orders - Current: Current Medications Al Hydroxide/Mg Hydroxide (Mag-Al Plus) 30 ml PO Q4H PRN PRN Reason: Heartburn Last Admin: 01/10/18 01:21 Dose: 30 ml Cholecalciferol (Vitamin D3) 2,000 units PO DAILY [facility] Last Admin: 01/10/18 08:12 Dose: 2,000 units Dextrose/Water (Dextrose 50% In Water) 50 ml IVPUSH ASDIRECTED PRN PRN Reason: Hypoglycemia Gabapentin (Neurontin) 200 mg PO BID [facility] Last Admin: 01/10/18 08:12 Dose: 200 mg Magnesium Sulfate 2 gm/ Premix 50 mls @ 25 mls/hr IV Q1H [facility] Stop: 01/10/18 13:29 Insulin Aspart (Novolog) 0 unit SUBCUT QIDACANDBED [facility]; Protocol Last Admin: 01/10/18 08:09 Dose: 3 units Lactulose (Cephulac) 60 gm PO TID [facility] Last Admin: 01/10/18 08:13 Dose: 60 gm Magnesium Oxide (Magnesium Oxide) 800 mg PO BID [facility] Last Admin: 01/10/18 08:12 Dose: 800 mg Ondansetron HCl (Zofran Odt) 4 mg PO Q6H PRN PRN Reason: Nausea Pantoprazole Sodium (Protonix) 40 mg PO DAILY@0700 [facility] Last Admin: 01/10/18 06:00 Dose: 40 mg Rifaximin (Xifaxan) 550 mg PO BID [facility] Last Admin: 01/10/18 08:12 Dose: 550 mg Spironolactone (Aldactone) 50 mg PO BID [facility] Last Admin: 01/10/18 08:10 Dose: 50 mg Discontinued Medications Erythromycin (Jed-Tab) 250 mg PO ONETIME ONE Stop: 01/08/18 12:54 Last Admin: 01/08/18 13:08 Dose: 250 mg Erythromycin (Jed-Tab) 250 mg PO Q6H [facility] Last Admin: 01/09/18 16:28 Dose: 250 mg Erythromycin (Jed-Tab) 250 mg PO Q6H [facility] Last Admin: 01/10/18 10:57 Dose: Not Given Furosemide (Lasix) 10 mg IVPUSH DAILY ONE Stop: 01/09/18 08:01 Last Admin: 01/09/18 09:30 Dose: 10 mg Sodium Chloride (Sodium Chloride 0.45%) 1,000 mls @ 100 mls/hr IV ASDIRECTED DHIRAJ Last Admin: 01/08/18 17:56 Dose: 100 mls/hr Lactulose (Cephulac) 60 gm PO ONETIME STA Stop: 01/08/18 12:54 Last Admin: 01/08/18 13:06 Dose: 60 gm Lactulose (Cephulac) 40 gm PO TID DHIRAJ Lactulose (Cephulac) 45 gm PO TID [facility]IRAJ Last Admin: 01/09/18 09:28 Dose: 45 gm Magnesium Oxide (Magnesium Oxide) 800 mg PO ONETIME ONE Stop: 01/09/18 08:13 Last Admin: 01/09/18 09:29 Dose: 800 mg - Exam Quality Assessment: No: DVT Prophylaxis (refusing CYNTHIA hose, chemical antiplatelets contraindicated due to low platelets ) General: Alert, Oriented, Cooperative HEENT: Pupils Equal, Pupils Reactive, EOMI, Mucous Membr. Moist/Renfrow, Scleral Icterus (very mild ) Neck: Supple, Trachea Midline, No JVD Lungs: Clear to Auscultation, Normal Respiratory Effort Cardiovascular: Regular Rate, Regular Rhythm GI/Abdominal Exam: Normal Bowel Sounds, Soft, Non-Tender, No Distention (Male) Exam: Deferred Back Exam: Normal Inspection, Full Range of Motion Extremities: Normal Inspection, Normal Range of Motion, Non-Tender, Normal Capillary Refill, Pedal Edema (1+) Peripheral Pulses: 1+: Radial (L), Radial (R), Posterior Tibial (L), Posterior Tibial (R), Dorsalis Pedis (L), Dorsalis Pedis (R) Skin: Warm, Dry, Intact Neurological: No New Focal Deficit Psy/Mental Status: Alert, Normal Affect, Normal Mood, Other (very mild to resolved confusion ) - Problem List & Annotations (1) Hepatic encephalopathy SNOMED Code(s): 22998590 Code(s): K72.90 - HEPATIC FAILURE, UNSPECIFIED WITHOUT COMA Status: Acute Priority: High Current Visit: Yes (2) Hyperglycemia due to type 2 diabetes mellitus SNOMED Code(s): 167393761751508, 010298627165267 Code(s): E11.65 - TYPE 2 DIABETES MELLITUS WITH HYPERGLYCEMIA Status: Acute Priority: High Current Visit: Yes Qualifiers: Diabetes mellitus retirement insulin use: without retirement use Qualified Code(s): E11.65 - Type 2 diabetes mellitus with hyperglycemia (3) Poorly controlled diabetes mellitus SNOMED Code(s): 579285788, 806694706 Code(s): E11.65 - TYPE 2 DIABETES MELLITUS WITH HYPERGLYCEMIA Status: Acute Priority: High Current Visit: Yes (4) CHF, Congestive heart failure SNOMED Code(s): 76127346 Code(s): I50.9 - HEART FAILURE, UNSPECIFIED Status: Chronic Priority: Medium Current Visit: No (5) Cirrhosis of liver SNOMED Code(s): 99526650 Code(s): K74.60 - UNSPECIFIED CIRRHOSIS OF LIVER Status: Chronic Priority : High Current Visit: No (6) Esophageal varices SNOMED Code(s): 60524284 Code(s): I85.00 - ESOPHAGEAL VARICES WITHOUT BLEEDING Status: Chronic Priority: Medium Current Visit: No Onset Date: 02/20/14 Annotation/Comment :: by history (7) GERD (gastroesophageal reflux disease) SNOMED Code(s): 544364963 Code(s): K21.9 - GASTRO-ESOPHAGEAL REFLUX DISEASE WITHOUT ESOPHAGITIS Status: Chronic Priority: Low Current Visit: No Qualifiers: Esophagitis presence: esophagitis presence not specified Qualified Code(s) : K21.9 - Gastro-esophageal reflux disease without esophagitis (8) Hepatitis non A non B SNOMED Code(s): 013876238 Code(s): B17.8 - OTHER SPECIFIED ACUTE VIRAL HEPATITIS Status: Chronic Priority: Medium Current Visit: No (9) Hyperammonemia SNOMED Code(s): 3349052 Code(s): E72.20 - DISORDER OF UREA CYCLE METABOLISM, UNSPECIFIED Status: Acute Priority: High Current Visit: Yes (10) Hypertension SNOMED Code(s): 72758389 Code(s): I10 - ESSENTIAL (PRIMARY) HYPERTENSION Status: Chronic Priority : Medium Current Visit: No Qualifiers: Hypertension type: unspecified Qualified Code(s): I10 - Essential (primary ) hypertension (11) Iron deficiency anemia SNOMED Code(s): 21499596 Code(s): D50.9 - IRON DEFICIENCY ANEMIA, UNSPECIFIED Status: Chronic Priority: Medium Current Visit: No Qualifiers: Iron deficiency anemia type: unspecified iron deficiency Qualified Code(s) : D50.9 - Iron deficiency anemia, unspecified (12) Obesity SNOMED Code(s): 449224394 Code(s): E66.9 - OBESITY, UNSPECIFIED Status: Chronic Priority: Medium Current Visit: No (13) S/P TIPS (transjugular intrahepatic portosystemic shunt) SNOMED Code(s): 879225155, 841566417 Code(s): Z95.828 - PRESENCE OF OTHER VASCULAR IMPLANTS AND GRAFTS Status: Chronic Priority: Medium Current Visit: No (14) Hypomagnesemia SNOMED Code(s): 277237341 Code(s): E83.42 - HYPOMAGNESEMIA Status: Acute Priority: High Current Visit: Yes (15) Pancytopenia SNOMED Code(s): 888063486 Code(s): D61.818 - OTHER PANCYTOPENIA Status: Chronic Priority: Medium Current Visit: Yes - Problem List Review Problem List Initiated/Reviewed/Updated: Yes - My Orders Last 24 Hours: My Active Orders 01/09/18 13:41 UA W/MICROSCOPIC [URIN] Routine 01/09/18 13:53 Patient Status [ADT] Routine 01/09/18 15:00 Lactulose [Cephulac] 60 gm PO TID 01/10/18 11:30 Magnesium Sulfate/Water [Magnesium Sulfate 2 GM in Water 50 ML] 2 gm Premix Bag 1 bag IV Q1H 01/11/18 05:11 AMMONIA VENOUS [CHEM] DAILY 01/12/18 05:11 AMMONIA VENOUS [CHEM] DAILY - Plan Plan:: Assessment/Plan: Acute: Hepatic Encephalopathy - Acute on Chronic - 2/2 Advanced Liver Disease and Medical Non-compliance - Ammonia level 89-->136-->117-->80 (goal <60) - UA ordered - no signs of overt infection - Long history of medical non-compliance - Resume Home Meds - Monitor Ammonia level - Avoid NSAIDs - Lactulose 60g TID, Erythromycin Q8hr--> Discontinue Erythromycin - Mentation has improved today - near baseline - CM was able find PCP closer to home at patient request (in [place]) Hypomagnesemia - Acute on chronic - 1.6 today and yesterday - On daily magnesium supplementation - Will replete Medical Non-compliance - He is supposed to be on lactulose and xifaxan - Long history of missing/skipping doses of medications - Patient reports he stopped taking lactulose because GI physician told him to stop from GI upset - Reminded patient of importance of continuing medications Chronic: Advanced Liver Disease from Long Hx/o ETOH Abuse Hx/o Esophageal Varices S/p TIPS Pancytopenia 2/2 Liver Disease, Platelet and Hgb at baseline Hypoalbuminemia, 2/2 Liver Disease Albumin level at baseline DM2 Hyperbilubinemia, 2/2 Advanced Liver Disease Obesity with BMI 38.7 Hypomagnesemia Pancytopenia Plan: Admit to observation --> upgrade to inpatient Routine AM labs Home medications as indicated Continue lactulose and Xifaxan Accu-check BID AM/HS with ISS coverage Aspiration and fall precautions DVT PPx: Compression stockings (Anticoags contraindicated due to low platelet levels) Hold metformin PTOT consult relief worker/CM for discharge planning Code status: Full code; PCP: Dr. Moreland Hopeful for discharge in 24hrs pending labs continuing to improve.
[2018-01-10] MEDS: Magnesium Sulfate/Water 2 GM in Premix Bag 1 BAG IV SCH ×2 (12:25→13:56)
[2018-01-10] MEDS: Magnesium Sulfate/Water 4 GM in Premix Bag 1 BAG IV ONE ×2 (16:05→16:22)
[2018-01-10] MEDS ORDERED: Magnesium Sulfate/Water 4 GM in Premix Bag 1 BAG IV ONE (16:30)
[2018-01-11] MEDS: Pantoprazole 40 MG Tab.CR PO SCH (06:12)
[2018-01-11] MEDS: Lactulose Soln 10 GM/15 ML 30 ML UD Cup PO SCH ×3 (08:29→22:30)
[2018-01-11] MEDS: Magnesium Oxide 400 MG Tab PO SCH ×2 (08:33→22:33)
[2018-01-11] MEDS: Rifaximin 550 MG Tab PO SCH ×2 (08:33→22:33)
[2018-01-11] MEDS: Spironolactone 25 MG Tab PO SCH ×2 (08:34→22:33)
[2018-01-11] MEDS: Cholecalciferol (Vitamin D3) 1,000 Unit Tab PO SCH (08:35)
[2018-01-11] MEDS: Gabapentin 100 MG Cap PO SCH ×2 (08:35→22:33)
[2018-01-11] MEDS: cefTRIAXone 2 GM in Sodium Chloride 0.9% 100 ML IV SCH (08:35)
[2018-01-11] MEDS: Insulin Aspart 100 Units/ML 3 ML Pen SUBCUT SCH ×4 (08:43→22:39)
[2018-01-11] MEDS ORDERED: Magnesium Sulfate/Water 4 GM in Premix Bag 1 BAG IV ONE (13:10)
--- NOTE | 2018-01-11 13:51 | PCM.PN ---
- General Info Date of Service: 01/11/18 Subjective Update: The patient had [employer] meal last night and has been eating a lot of candy. There has been otherwise minimal change in his regimen. Eryhjtromycin will bve restarted. Also a brief discussion regarding diet occurred with the patient. Functional Status: Reports: Pain Controlled, Tolerating Diet, Ambulating, Urinating - Review of Systems General: Reports: No Symptoms HEENT: Reports: No Symptoms Pulmonary: Reports: No Symptoms Cardiovascular: Reports: No Symptoms Gastrointestinal: Reports: No Symptoms Genitourinary: Reports: No Symptoms Musculoskeletal: Reports: No Symptoms Skin: Reports: No Symptoms Neurological: Reports: No Symptoms Psychiatric: Reports: No Symptoms - Patient Data Vitals - Most Recent: Last Vital Signs Temp 36.7 C 01/11/18 12:40 Pulse 78 01/11/18 12:40 Resp 16 01/11/18 12:40 BP 128/76 01/11/18 12:40 Pulse Ox 99 01/11/18 12:40 Weight - Most Recent: 118.887 kg I&O - Last 24 Hours: Intake & Output 01/10/18 01/11/18 01/11/18 22:59 06:59 14:59 Intake Total 1020 800 360 Balance 1020 800 360 Lab Results Last 24 Hours: Laboratory Results - last 24 hr 01/10/18 01/10/18 01/10/18 Range/Units 16:21 22:20 23:41 WBC (4.23-9.07) K/mm3 RBC (4.63-6.08) M/mm3 Hgb (13.7-17.5) gm/L Hct (40.1-51.0) % MCV (79.0-92.2) fl MCH (25.7-32.2) pg MCHC (32.2-35.5) g/dl RDW Std Deviation (35.1-43.9) fL Plt Count (163-337) K/mm3 MPV (9.4-12.3) fl Neut % (Auto) (34.0-67.9) % Lymph % (Auto) (21.8-53.1) % [place] % (Auto) (5.3-12.2) % Eos % (Auto) (0.8-7.0) Baso % (Auto) (0.1-1.2) % Neut # (Auto) (1.78-5.38) K/mm3 Lymph # (Auto) (1.32-3.57) K/mm3 [place] # (Auto) (0.30-0.82) K/mm3 Eos # (Auto) (0.04-0.54) K/mm3 Baso # (Auto) (0.01-0.08) K/mm3 Manual Slide Review Sodium (136-145) mEq/L Potassium (3.5-5.1) mEq/L Chloride (98-107) mEq/L Carbon Dioxide (21-32) mEq/L Anion Gap (5-15) BUN (7-18) mg/dL Creatinine (0.7-1.3) mg/dL Est Cr Clr Drug Dosing mL/min Estimated GFR (MDRD) (>60) mL/min BUN/Creatinine Ratio (14-18) Glucose (74-106) mg/dL POC Glucose 303 H 273 H (70-105) mg/dL Calcium (8.5-10.1) mg/dL Magnesium (1.8-2.4) mg/dl Ammonia (11-32) umol/L C-Reactive Protein (<1.0) mg/dL Urine Color Gisela H (Yellow) Urine Appearance Slt cloudy H (Clear) Urine pH 6.0 (5.0-8.0) Ur Specific [place] > or = 1.030 (1.005-1.030) Urine Protein Trace H (Negative) Urine Glucose (UA) 2+ H (Negative) Urine Ketones Trace H (Negative) Urine Occult Blood 3+ H (Negative) Urine Nitrite Positive H (Negative) Urine Bilirubin Negative (Negative) Urine Urobilinogen 1.0 (0.2-1.0) Ur Leukocyte Esterase 1+ H (Negative) Urine RBC 20-30 H (0-5) /hpf Urine WBC 30-40 H (0-5) /hpf Ur Epithelial Cells 0-5 (0-5) /hpf Urine Bacteria Moderate H (FEW) /hpf Urine Mucus Moderate H (FEW) /hpf 01/11/18 01/11/18 01/11/18 Range/Units 06:13 06:22 06:22 WBC 4.35 (4.23-9.07) K/mm3 RBC 3.14 L (4.63-6.08) M/mm3 Hgb 10.5 L (13.7-17.5) gm/L Hct 28.7 L (40.1-51.0) % MCV 91.4 (79.0-92.2) fl MCH 33.4 H (25.7-32.2) pg MCHC 36.6 H (32.2-35.5) g/dl RDW Std Deviation 52.1 H (35.1-43.9) fL Plt Count 48 L (163-337) K/mm3 MPV 10.5 (9.4-12.3) fl Neut % (Auto) 60.7 (34.0-67.9) % Lymph % (Auto) 28.3 (21.8-53.1) % [place] % (Auto) 9.2 (5.3-12.2) % Eos % (Auto) 1.4 (0.8-7.0) Baso % (Auto) 0.2 (0.1-1.2) % Neut # (Auto) 2.64 (1.78-5.38) K/mm3 Lymph # (Auto) 1.23 L (1.32-3.57) K/mm3 [place] # (Auto) 0.40 (0.30-0.82) K/mm3 Eos # (Auto) 0.06 (0.04-0.54) K/mm3 Baso # (Auto) 0.01 (0.01-0.08) K/mm3 Manual Slide Review Abnormal smear Sodium 131 L (136-145) mEq/L Potassium 4.5 (3.5-5.1) mEq/L Chloride 103 (98-107) mEq/L Carbon Dioxide 24 (21-32) mEq/L Anion Gap 8.5 (5-15) BUN 14 (7-18) mg/dL Creatinine 1.2 (0.7-1.3) mg/dL Est Cr Clr Drug Dosing 69.28 mL/min Estimated GFR (MDRD) > 60 (>60) mL/min BUN/Creatinine Ratio 11.7 L (14-18) Glucose 340 H (74-106) mg/dL POC Glucose 318 H (70-105) mg/dL Calcium 8.7 (8.5-10.1) mg/dL Magnesium 1.7 L (1.8-2.4) mg/dl Ammonia (11-32) umol/L C-Reactive Protein < 0.2 (<1.0) mg/dL Urine Color (Yellow) Urine Appearance (Clear) Urine pH (5.0-8.0) Ur Specific [place] (1.005-1.030) Urine Protein (Negative) Urine Glucose (UA) (Negative) Urine Ketones (Negative) Urine Occult Blood (Negative) Urine Nitrite (Negative) Urine Bilirubin (Negative) Urine Urobilinogen (0.2-1.0) Ur Leukocyte Esterase (Negative) Urine RBC (0-5) /hpf Urine WBC (0-5) /hpf Ur Epithelial Cells (0-5) /hpf Urine Bacteria (FEW) /hpf Urine Mucus (FEW) /hpf 01/11/18 01/11/18 Range/Units 06:22 11:36 WBC (4.23-9.07) K/mm3 RBC (4.63-6.08) M/mm3 Hgb (13.7-17.5) gm/L Hct (40.1-51.0) % MCV (79.0-92.2) fl MCH (25.7-32.2) pg MCHC (32.2-35.5) g/dl RDW Std Deviation (35.1-43.9) fL Plt Count (163-337) K/mm3 MPV (9.4-12.3) fl Neut % (Auto) (34.0-67.9) % Lymph % (Auto) (21.8-53.1) % [place] % (Auto) (5.3-12.2) % Eos % (Auto) (0.8-7.0) Baso % (Auto) (0.1-1.2) % Neut # (Auto) (1.78-5.38) K/mm3 Lymph # (Auto) (1.32-3.57) K/mm3 [place] # (Auto) (0.30-0.82) K/mm3 Eos # (Auto) (0.04-0.54) K/mm3 Baso # (Auto) (0.01-0.08) K/mm3 Manual Slide Review Sodium (136-145) mEq/L Potassium (3.5-5.1) mEq/L Chloride (98-107) mEq/L Carbon Dioxide (21-32) mEq/L Anion Gap (5-15) BUN (7-18) mg/dL Creatinine (0.7-1.3) mg/dL Est Cr Clr Drug Dosing mL/min Estimated GFR (MDRD) (>60) mL/min BUN/Creatinine Ratio (14-18) Glucose (74-106) mg/dL POC Glucose 377 H (70-105) mg/dL Calcium (8.5-10.1) mg/dL Magnesium (1.8-2.4) mg/dl Ammonia 95 H (11-32) umol/L C-Reactive Protein (<1.0) mg/dL Urine Color (Yellow) Urine Appearance (Clear) Urine pH (5.0-8.0) Ur Specific [place] (1.005-1.030) Urine Protein (Negative) Urine Glucose (UA) (Negative) Urine Ketones (Negative) Urine Occult Blood (Negative) Urine Nitrite (Negative) Urine Bilirubin (Negative) Urine Urobilinogen (0.2-1.0) Ur Leukocyte Esterase (Negative) Urine RBC (0-5) /hpf Urine WBC (0-5) /hpf Ur Epithelial Cells (0-5) /hpf Urine Bacteria (FEW) /hpf Urine Mucus (FEW) /hpf Med Orders - Current: Current Medications Al Hydroxide/Mg Hydroxide (Mag-Al Plus) 30 ml PO Q4H PRN PRN Reason: Heartburn Last Admin: 01/10/18 01:21 Dose: 30 ml Cholecalciferol (Vitamin D3) 2,000 units PO DAILY [facility] Last Admin: 01/11/18 08:35 Dose: 2,000 units Dextrose/Water (Dextrose 50% In Water) 50 ml IVPUSH ASDIRECTED PRN PRN Reason: Hypoglycemia Erythromycin (Jed-Tab) 250 mg PO Q8H [facility] Last Admin: 01/11/18 09:41 Dose: 250 mg Gabapentin (Neurontin) 200 mg PO BID [facility] Last Admin: 01/11/18 08:35 Dose: 200 mg Ceftriaxone Sodium 2 gm/ (Sodium Chloride) 100 mls @ 100 mls/hr IV Q24H [facility] Last Admin: 01/11/18 08:35 Dose: 100 mls/hr Magnesium Sulfate 4 gm/ Premix 100 mls @ 25 mls/hr IV ONETIME ONE Stop: 01/11/18 17:09 Insulin Aspart (Novolog) 0 unit SUBCUT QIDACANDBED [facility]; Protocol Last Admin: 01/11/18 12:37 Dose: 377 units Lactulose (Cephulac) 60 gm PO TID [facility] Last Admin: 01/11/18 08:29 Dose: 60 gm Magnesium Oxide (Magnesium Oxide) 800 mg PO BID [facility] Last Admin: 01/11/18 08:33 Dose: 800 mg Ondansetron HCl (Zofran Odt) 4 mg PO Q6H PRN PRN Reason: Nausea Pantoprazole Sodium (Protonix) 40 mg PO DAILY@0700 [facility] Last Admin: 01/11/18 06:12 Dose: 40 mg Rifaximin (Xifaxan) 550 mg PO BID [facility] Last Admin: 01/11/18 08:33 Dose: 550 mg Spironolactone (Aldactone) 50 mg PO BID [facility] Last Admin: 01/11/18 08:34 Dose: 50 mg Discontinued Medications Erythromycin (Jed-Tab) 250 mg PO ONETIME ONE Stop: 01/08/18 12:54 Last Admin: 01/08/18 13:08 Dose: 250 mg Erythromycin (Jed-Tab) 250 mg PO Q6H [facility] Last Admin: 01/09/18 16:28 Dose: 250 mg Erythromycin (Jed-Tab) 250 mg PO Q6H [facility] Last Admin: 01/10/18 10:57 Dose: Not Given Furosemide (Lasix) 10 mg IVPUSH DAILY ONE Stop: 01/09/18 08:01 Last Admin: 01/09/18 09:30 Dose: 10 mg Sodium Chloride (Sodium Chloride 0.45%) 1,000 mls @ 100 mls/hr IV ASDIRECTED [facility] Last Admin: 01/08/18 17:56 Dose: 100 mls/hr Magnesium Sulfate 2 gm/ Premix 50 mls @ 25 mls/hr IV Q1H [facility] Stop: 01/10/18 13:29 Last Admin: 01/10/18 13:56 Dose: 25 mls/hr Magnesium Sulfate 4 gm/ Premix 100 mls @ 300 mls/hr IV ONETIME ONE Stop: 01/10/18 15:41 Last Admin: 01/10/18 16:22 Dose: Not Given Magnesium Sulfate 4 gm/ Premix 100 mls @ 25 mls/hr IV ONETIME ONE Stop: 01/10/18 20:29 Last Admin: 01/10/18 16:23 Dose: 25 mls/hr Lactulose (Cephulac) 60 gm PO ONETIME STA Stop: 01/08/18 12:54 Last Admin: 01/08/18 13:06 Dose: 60 gm Lactulose (Cephulac) 40 gm PO TID [facility] Lactulose (Cephulac) 45 gm PO TID [facility] Last Admin: 01/09/18 09:28 Dose: 45 gm Lactulose (Cephulac) 60 gm PO TID [facility] Last Admin: 01/10/18 22:22 Dose: 60 gm Magnesium Oxide (Magnesium Oxide) 800 mg PO ONETIME ONE Stop: 01/09/18 08:13 Last Admin: 01/09/18 09:29 Dose: 800 mg - Exam Quality Assessment: DVT Prophylaxis General: Alert, Oriented, Cooperative, No Acute Distress HEENT: Pupils Equal, Pupils Reactive, EOMI Neck: Trachea Midline, No JVD Lungs: Normal Respiratory Effort Cardiovascular: Regular Rate, Regular Rhythm GI/Abdominal Exam: Normal Bowel Sounds, Soft, Non-Tender, No Organomegaly, No Distention (Male) Exam: Deferred Back Exam: Normal Inspection Extremities: Normal Inspection, Non-Tender, Normal Capillary Refill Skin: Warm Neurological: No New Focal Deficit, Normal Gait, Normal Speech Psy/Mental Status: Alert, Normal Affect, Normal Mood - Problem List & Annotations (1) Hepatic encephalopathy SNOMED Code(s): 76232760 Code(s): K72.90 - HEPATIC FAILURE, UNSPECIFIED WITHOUT COMA Status: Acute Priority: High Current Visit: Yes (2) Hyperammonemia SNOMED Code(s): 3070853 Code(s): E72.20 - DISORDER OF UREA CYCLE METABOLISM, UNSPECIFIED Status: Acute Priority: High Current Visit: Yes (3) Diabetes mellitus type 2 SNOMED Code(s): 50681967 Code(s): E11.9 - TYPE 2 DIABETES MELLITUS WITHOUT COMPLICATIONS Status: Chronic Priority: Low Current Visit: No (4) GERD (gastroesophageal reflux disease) SNOMED Code(s): 179660769 Code(s): K21.9 - GASTRO-ESOPHAGEAL REFLUX DISEASE WITHOUT ESOPHAGITIS Status: Chronic Priority: Low Current Visit: No Qualifiers: Esophagitis presence: esophagitis presence not specified Qualified Code(s) : K21.9 - Gastro-esophageal reflux disease without esophagitis (5) Hypertension SNOMED Code(s): 92334272 Code(s): I10 - ESSENTIAL (PRIMARY) HYPERTENSION Status: Chronic Priority : Medium Current Visit: No Qualifiers: Hypertension type: unspecified Qualified Code(s): I10 - Essential (primary ) hypertension (6) Obesity SNOMED Code(s): 441822053 Code(s): E66.9 - OBESITY, UNSPECIFIED Status: Chronic Priority: Medium Current Visit: No (7) Hepatic encephalopathy SNOMED Code(s): 92286716 Code(s): K72.90 - HEPATIC FAILURE, UNSPECIFIED WITHOUT COMA Status: Resolved Priority: High Current Visit: No - Problem List Review Problem List Initiated/Reviewed/Updated: Yes - My Orders Last 24 Hours: My Active Orders 01/11/18 08:30 cefTRIAXone [Rocephin] 2 gm Sodium Chloride 0.9% [Normal Saline] 100 ml IV Q24H 01/11/18 09:00 Erythromycin Base [Jed-Tab] 250 mg PO Q8H Lactulose [Cephulac] 60 gm PO TID 01/11/18 13:10 Magnesium Sulfate/Water [Magnesium Sulfate 4 GM in Water 100 ML] 4 gm Premix Bag 1 bag IV ONETIME 01/11/18 13:20 CULTURE URINE [RM] Routine - Plan Plan:: Impression: AMS--resolved Hepatic encephalopathy improving Hyperglycemia--dietary indiscretion Hypomagnesemia--depleted stores Pancytopenia--chronic liver disease AUTI--started on Rocephin, day 1 Chronic GERD DM type 2 HTN Obesity, BMI 38.7 Hepatitis Plan: IVF--saline lock Lactulose/Erythromycin Daily labs Home meds Contact precautions DVT/GI prophylaxis DC>96 hours anticipated
[2018-01-12] MEDS: Pantoprazole 40 MG Tab.CR PO SCH (06:00)
[2018-01-12 08:50] VITALS: BP 112/71
[2018-01-12] MEDS: cefTRIAXone 2 GM in Sodium Chloride 0.9% 100 ML IV SCH (09:33)
[2018-01-12] MEDS: Insulin Aspart 100 Units/ML 3 ML Pen SUBCUT SCH ×2 (09:34→13:05)
[2018-01-12] MEDS: Spironolactone 25 MG Tab PO SCH (09:35)
[2018-01-12] MEDS: Gabapentin 100 MG Cap PO SCH (09:35)
[2018-01-12] MEDS: Lactulose Soln 10 GM/15 ML 30 ML UD Cup PO SCH (09:35)
[2018-01-12] MEDS: Rifaximin 550 MG Tab PO SCH (09:36)
[2018-01-12] MEDS: Magnesium Oxide 400 MG Tab PO SCH (09:36)
[2018-01-12] MEDS: Cholecalciferol (Vitamin D3) 1,000 Unit Tab PO SCH (09:36)
--- NOTE | 2018-01-12 10:22 | PCM.DCSUM1 ---
Discharge Summary - Hospital Course Free Text/Narrative:: 57 year old male with history of liver cirrhosis presents w/ mental status change. He was seen earlier by a new PCP. An ammonia level was checked which was elevated at 89. The patient was confused, and instructed to seek medical intervention in the ED at [facility]. He denied fever/chills/SOB, CP, syncopal/presyncopal episode. He received lactulose 60 gm/erythromycin 250 mg was given. The patient is a full code, admitted to obs with telemetry. The patinet had an occasional elevated ammonia level, adjustment of medication quickly resolved it. He was diagnosed with a UTI. A work excuse was given, he may return to work without restrictions, 01/15/18. - Discharge Data Discharge Date: 01/12/18 Discharge Disposition: Home, Self-Care 01 Condition: Good - Discharge Diagnosis/Problem(s) (1) Hepatic encephalopathy SNOMED Code(s): 44810950 ICD Code: K72.90 - HEPATIC FAILURE, UNSPECIFIED WITHOUT COMA Status: Acute Priority: High Current Visit: Yes (2) Hyperammonemia SNOMED Code(s): 4289156 ICD Code: E72.20 - DISORDER OF UREA CYCLE METABOLISM, UNSPECIFIED Status: Acute Priority: High Current Visit: Yes (3) Diabetes mellitus type 2 SNOMED Code(s): 42465851 ICD Code: E11.9 - TYPE 2 DIABETES MELLITUS WITHOUT COMPLICATIONS Status: Chronic Priority: Low Current Visit: No (4) GERD (gastroesophageal reflux disease) SNOMED Code(s): 448626417 ICD Code: K21.9 - GASTRO-ESOPHAGEAL REFLUX DISEASE WITHOUT ESOPHAGITIS Status: Chronic Priority: Low Current Visit: No Qualifiers: Esophagitis presence: esophagitis presence not specified Qualified Code(s) : K21.9 - Gastro-esophageal reflux disease without esophagitis (5) Hypertension SNOMED Code(s): 85665111 ICD Code: I10 - ESSENTIAL (PRIMARY) HYPERTENSION Status: Chronic Priority : Medium Current Visit: No Qualifiers: Hypertension type: unspecified Qualified Code(s): I10 - Essential (primary ) hypertension (6) Obesity SNOMED Code(s): 077888638 ICD Code: E66.9 - OBESITY, UNSPECIFIED Status: Chronic Priority: Medium Current Visit: No (7) Hepatic encephalopathy SNOMED Code(s): 87863958 ICD Code: K72.90 - HEPATIC FAILURE, UNSPECIFIED WITHOUT COMA Status: Resolved Priority: High Current Visit: No - Patient Instructions Diet: Diabetic Diet Activity: As Tolerated Driving: May Drive Today Showering/Bathing: May Shower Notify Provider of: Fever, Increased Pain, Nausea and/or Vomiting - Discharge Plan Prescriptions/Med Rec: Cephalexin [Keflex] 500 mg PO Q8H 10 Days #30 cap Home Medications: Home Meds Cholecalciferol (Vitamin D3) [Vitamin D3] 2,000 unit PO DAILY #30 cap 11/16/17 [ Rx] Gabapentin [Neurontin] 200 mg PO BID #120 capsule 11/16/17 [Rx] Insulin Aspart [Novolog Flexpen] 1 unit SQ TIDMEALS PRN #1 ml 11/16/17 [Rx] Insulin Detemir [Levemir] 20 units SUBCUT DAILY #1 pen 11/16/17 [Rx] Pantoprazole [ProTONIX] 40 mg PO DAILY #30 tab.cr 11/16/17 [Rx] Rifaximin [Xifaxan] 550 mg PO BID #60 tablet 11/16/17 [Rx] Spironolactone 50 mg PO BID #60 tablet 11/16/17 [Rx] Lactulose 40 gm PO TID 01/08/18 [History] Magnesium Oxide 800 mg PO BID 01/08/18 [History] Ondansetron HCl [Zofran] 4 mg PO Q6H PRN 01/08/18 [History] metFORMIN [Glucophage XR] 500 mg PO BID 01/08/18 [History] Cephalexin [Keflex] 500 mg PO Q8H 10 Days #30 cap 01/12/18 [Rx] Patient Handouts: Hepatic Encephalopathy Referrals: Francie Case NP [Ordering Only Provider] - 01/16/18 2:30 pm ([facility] in [place]. [phone]. Appointment is at 2:30 [employer]. To establish primary care at a clinic closer to home.) - Discharge Summary/Plan Comment DC Time >30 min.: No Discharge Summary/Plan Comment: Impression: AMS--resolved Hepatic encephalopathy improving Hyperglycemia--dietary indiscretion Hypomagnesemia--depleted stores Pancytopenia--chronic liver disease AUTI--started on Rocephin, day 2; Keflex prescription provided Chronic GERD DM type 2 HTN Obesity, BMI 38.7 Hepatitis Plan: IVF--saline lock Lactulose/Erythromycin Daily labs Home meds--resume Lactulose dose at DC Contact precautions DVT/GI prophylaxis - General Info Date of Service: 01/08/18 Functional Status: Reports: Tolerating Diet, Ambulating, Urinating - Review of Systems General: Reports: No Symptoms HEENT: Reports: No Symptoms Pulmonary: Reports: No Symptoms Cardiovascular: Reports: No Symptoms Gastrointestinal: Reports: No Symptoms Genitourinary: Reports: No Symptoms Musculoskeletal: Reports: No Symptoms Skin: Reports: No Symptoms Neurological: Reports: No Symptoms Psychiatric: Reports: No Symptoms - Patient Data Vitals - Most Recent: Last Vital Signs Temp 36.8 C 01/12/18 08:15 Pulse 71 01/12/18 08:15 Resp 14 01/12/18 08:15 BP 112/71 01/12/18 08:15 Pulse Ox 98 01/12/18 08:15 Weight - Most Recent: 119.476 kg I&O - Last 24 hours: Intake & Output 01/11/18 01/12/18 01/12/18 22:59 06:59 14:59 Intake Total 1320 500 Balance 1320 500 Lab Results - Last 24 hrs: Laboratory Results - last 24 hr 01/11/18 01/11/18 01/11/18 Range/Units 11:36 16:40 22:38 POC Glucose 377 H 389 H 173 H (70-105) mg/dL Ammonia (11-32) umol/L 01/12/18 01/12/18 Range/Units 05:41 05:55 POC Glucose 154 H (70-105) mg/dL Ammonia 57 H (11-32) umol/L Med Orders - Current: Current Medications Al Hydroxide/Mg Hydroxide (Mag-Al Plus) 30 ml PO Q4H PRN PRN Reason: Heartburn Last Admin: 01/10/18 01:21 Dose: 30 ml Cholecalciferol (Vitamin D3) 2,000 units PO DAILY [facility] Last Admin: 01/12/18 09:36 Dose: 2,000 units Dextrose/Water (Dextrose 50% In Water) 50 ml IVPUSH ASDIRECTED PRN PRN Reason: Hypoglycemia Erythromycin (Jed-Tab) 250 mg PO Q8H [facility] Last Admin: 01/12/18 09:36 Dose: 250 mg Gabapentin (Neurontin) 200 mg PO BID [facility] Last Admin: 01/12/18 09:35 Dose: 200 mg Ceftriaxone Sodium 2 gm/ (Sodium Chloride) 100 mls @ 100 mls/hr IV Q24H [facility] Last Admin: 01/12/18 09:33 Dose: 100 mls/hr Insulin Aspart (Novolog) 0 unit SUBCUT QIDACANDBED [facility]; Protocol Last Admin: 01/12/18 09:34 Dose: 1 units Lactulose (Cephulac) 60 gm PO TID [facility] Last Admin: 01/12/18 09:35 Dose: 60 gm Magnesium Oxide (Magnesium Oxide) 800 mg PO BID [facility] Last Admin: 01/12/18 09:36 Dose: 800 mg Ondansetron HCl (Zofran Odt) 4 mg PO Q6H PRN PRN Reason: Nausea Pantoprazole Sodium (Protonix) 40 mg PO DAILY@0700 [facility] Last Admin: 01/12/18 06:00 Dose: 40 mg Rifaximin (Xifaxan) 550 mg PO BID [facility] Last Admin: 01/12/18 09:36 Dose: 550 mg Spironolactone (Aldactone) 50 mg PO BID [facility] Last Admin: 01/12/18 09:35 Dose: 50 mg Discontinued Medications Erythromycin (Jed-Tab) 250 mg PO ONETIME ONE Stop: 01/08/18 12:54 Last Admin: 01/08/18 13:08 Dose: 250 mg Erythromycin (Jed-Tab) 250 mg PO Q6H [facility] Last Admin: 01/09/18 16:28 Dose: 250 mg Erythromycin (Jed-Tab) 250 mg PO Q6H [facility] Last Admin: 01/10/18 10:57 Dose: Not Given Furosemide (Lasix) 10 mg IVPUSH DAILY ONE Stop: 01/09/18 08:01 Last Admin: 01/09/18 09:30 Dose: 10 mg Sodium Chloride (Sodium Chloride 0.45%) 1,000 mls @ 100 mls/hr IV ASDIRECTED [facility] Last Admin: 01/08/18 17:56 Dose: 100 mls/hr Magnesium Sulfate 2 gm/ Premix 50 mls @ 25 mls/hr IV Q1H [facility] Stop: 01/10/18 13:29 Last Admin: 01/10/18 13:56 Dose: 25 mls/hr Magnesium Sulfate 4 gm/ Premix 100 mls @ 300 mls/hr IV ONETIME ONE Stop: 01/10/18 15:41 Last Admin: 01/10/18 16:22 Dose: Not Given Magnesium Sulfate 4 gm/ Premix 100 mls @ 25 mls/hr IV ONETIME ONE Stop: 01/10/18 20:29 Last Admin: 01/10/18 16:23 Dose: 25 mls/hr Magnesium Sulfate 4 gm/ Premix 100 mls @ 25 mls/hr IV ONETIME ONE Stop: 01/11/18 17:09 Last Admin: 01/11/18 14:09 Dose: 25 mls/hr Lactulose (Cephulac) 60 gm PO ONETIME STA Stop: 01/08/18 12:54 Last Admin: 01/08/18 13:06 Dose: 60 gm Lactulose (Cephulac) 40 gm PO TID [facility]IRAJ Lactulose (Cephulac) 45 gm PO TID [facility] Last Admin: 01/09/18 09:28 Dose: 45 gm Lactulose (Cephulac) 60 gm PO TID [facility] Last Admin: 01/10/18 22:22 Dose: 60 gm Magnesium Oxide (Magnesium Oxide) 800 mg PO ONETIME ONE Stop: 01/09/18 08:13 Last Admin: 01/09/18 09:29 Dose: 800 mg - Exam Quality Assessment: Reports: Supplemental Oxygen, DVT Prophylaxis General: Reports: Alert, Oriented, Cooperative, No Acute Distress HEENT: Reports: Pupils Equal, Pupils Reactive, EOMI Neck: Reports: Trachea Midline, No JVD Lungs: Reports: Normal Respiratory Effort Cardiovascular: Reports: Regular Rate, Regular Rhythm GI/Abdominal Exam: Normal Bowel Sounds, Soft, Non-Tender, No Organomegaly, No Distention (Male) Exam: Deferred Rectal (Males) Exam: Deferred Back Exam: Reports: Normal Inspection Extremities: Normal Inspection, Normal Range of Motion, Non-Tender, Normal Capillary Refill Skin: Reports: Warm Neurological: Reports: No New Focal Deficit, Normal Gait, Normal Speech Psy/Mental Status: Reports: Alert, Normal Affect, Normal Mood
[2018-01-13] MEDS ORDERED: Cephalexin 500 MG Cap PO SCH (09:00)
== END 2018-01-12 13:31 | disposition home or self-care (01) ==
LOC: JD.ED 12:01 → JD.MS 14:12 → JD.ED 14:37 → OBSVTOIN 01-09 13:53 → JD.MS 01-09 16:59
PROVIDERS: ADMIT Internal Medicine Cardiovascular Disease; ATTEND Internal Medicine Cardiovascular Disease
DX: K74.60 Unspecified cirrhosis of liver (principal); D61.818 Other pancytopenia; I11.0 Hypertensive heart disease with heart failure; I50.9 Heart failure, unspecified; E83.42 Hypomagnesemia; E11.65 Type 2 diabetes mellitus with hyperglycemia; K72.10 Chronic hepatic failure without coma; K72.00 Acute and subacute hepatic failure without coma; F17.200 Nicotine dependence, unspecified, uncomplicated; E66.9 Obesity, unspecified; N39.0 Urinary tract infection, site not specified; K21.9 Gastro-esophageal reflux disease without esophagitis; F10.21 Alcohol dependence, in remission; E03.9 Hypothyroidism, unspecified; L30.9 Dermatitis, unspecified; B17.8 Other specified acute viral hepatitis; D50.9 Iron deficiency anemia, unspecified; Z68.38 Body mass index [BMI] 38.0-38.9, adult; Z79.899 Other long term (current) drug therapy; Z91.14 Patient's other noncompliance with medication regimen; Z86.14 Personal history of Methicillin resistant Staphylococcus aureus infection; Z79.4 Long term (current) use of insulin; Z95.828 Presence of other vascular implants and grafts
CPT/HCPCS: 36415; 80048; 81001; 82140; 82947; 82962; 83735; 85025; 86140; 87086; 87088; 87186; 99284; A9270-GY; J0696; J1815-GY; J3475; J7030

== ENCOUNTER 2018-10-17 19:21 | Inpatient (IN) | payer BC ==
--- NOTE | 2018-10-17 20:25 | EDM.PDOC ---
ED HPI GENERAL MEDICAL PROBLEM - General Chief Complaint: General Stated Complaint: MEMORY PROBLEMS Time Seen by Provider: 10/17/18 19:48 Source of Information: Reports: Patient, Family History Limitations: Reports: Altered Mental Status - History of Present Illness INITIAL COMMENTS - FREE TEXT/NARRATIVE: This is a 58-year-old male. He has a history of liver cirrhosis with hepatic encephalopathy on multiple occasions. The last time he was admitted to this hospital he was referred down to [place] to see a specialist but he was not able to get there. His brother brings him in today stating that he has been more confused over the last 3-4 days and this morning was really confused. Now that the evening comes on he is becoming confused to Jeri was brother brings him to the ER. The patient is also a diabetic but he states he's been taking his medications. He tells me he has been faithful in taking his medicines for his liver. The patient has not been eating and drinking much over the last few days. According to the brother he looks more jaundiced than he normally does. The patient has very slow speech and has difficulty in answering questions and the brother seems to help him with this. His history includes liver cirrhosis esophageal varices bypass surgery [id number] diabetes congestive heart failure cholelithiasis and ascites. - Related Data Allergies Allergy/AdvReac Type Severity Reaction Status Date / Time No Known Allergies Allergy Verified 10/18/18 02:50 Home Meds: Home Meds Cholecalciferol (Vitamin D3) [Vitamin D3] 2,000 unit PO DAILY #30 cap 11/16/17 [ Rx] Pantoprazole [ProTONIX] 40 mg PO DAILY #30 tab.cr 11/16/17 [Rx] Spironolactone 50 mg PO BID #60 tablet 11/16/17 [Rx] Magnesium Oxide 800 mg PO BID 01/08/18 [History] metFORMIN [Glucophage XR] 500 mg PO BID 01/08/18 [History] Lactulose 30 gm PO TID #90 bottle 07/31/18 [Rx] Rifaximin [Xifaxan] 550 mg PO BID #60 tablet 07/31/18 [Rx] Past Medical History Cardiovascular History: Reports: Hypertension Other Cardiovascular History: UNABLE TO OBTAIN INFORMATION PT IS NOT VERBALLY RESPONSIVE AT THIS TIME Respiratory History: Reports: SOB Other Respiratory History: UNABLE TO OBTAIN INFORMATION PT IS NOT VERBALLY RESPONSIVE AT THIS TIME Gastrointestinal History: Reports: Cirrhosis, GERD, GI Bleed Other Gastrointestinal History: liver failure;stomach bleed Genitourinary History: Reports: Other (See Below) Other Genitourinary History: UNABLE TO OBTAIN INFORMATION PT IS NOT VERBALLY RESPONSIVE AT THIS TIME Musculoskeletal History: Reports: Back Pain, Chronic Other Musculoskeletal History: UNABLE TO OBTAIN INFORMATION PT IS NOT VERBALLY RESPONSIVE AT THIS TIME Neurological History: Reports: Other (See Below) Other Neuro History: hepatic encephalopathy Psychiatric History: Reports: Addiction Other Psychiatric History: Alcoholism-recovered addict Endocrine/Metabolic History: Reports: Diabetes, Type II, Hypothyroidism, Obesity /BMI 30+ Hematologic History: Reports: Anemia, Blood Transfusion(s) Other Hematologic History: UNABLE TO OBTAIN INFORMATION PT IS NOT VERBALLY RESPONSIVE AT THIS TIME Other Oncologic History: UNABLE TO OBTAIN INFORMATION PT IS NOT VERBALLY RESPONSIVE AT THIS TIME Dermatologic History: Reports: Cellulitis, Eczema Other Dermatologic History: 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 History of cellulitis to both legs. - Infectious Disease History Infectious Disease History: Reports: Hepatitis non A,B,C, Measles, MRSA - Past Surgical History GI Surgical History: Reports: Other (See Below) Social & Family History - Family History Family Medical History: Noncontributory - Tobacco Use Smoking Status *Q: Former Smoker Used Tobacco, but Quit: Yes Month/Year Tobacco Last Used: 20 - Caffeine Use Caffeine Use: Reports: Coffee, Soda Other Caffeine Use: unable to obtain Caffeine Use Comment: unable to obtain, patient unresponsive - Recreational Drug Use Recreational Drug Use: No - Living Situation & Occupation Living situation: Reports: , with Family Occupation: Employed ED ROS GENERAL - Review of Systems Review Of Systems: See Below Constitutional: Reports: Malaise, Weakness, Fatigue. Denies: Fever, Chills HEENT: Reports: Other (Jaundice is noted) Respiratory: Denies: Shortness of Breath, Cough Cardiovascular: Reports: Chest Pain Endocrine: Reports: Fatigue GI/Abdominal: Denies: Abdominal Pain, Black Stool, Bloody Stool, Nausea, Vomiting : Reports: No Symptoms Musculoskeletal: Reports: Other (States he has achiness at times) Skin: Reports: Jaundice Neurological: Reports: Confusion, Difficulty Walking, Weakness, Change in Speech Psychiatric: Reports: Other (Flat affect) ED EXAM, GENERAL - Physical Exam Exam: See Below Exam Limited By: Altered Mental Status General Appearance: Alert, No Apparent Distress, Lethargic, Obese Eye Exam: Bilateral Eye: Other (Patient obviously has jaundiced sclera) Ears: Normal External Exam, Normal Canal, Normal TMs Nose: Normal Inspection Throat/Mouth: Normal Inspection, Normal Lips, Other (Slow mentation and speech, membranes are tacky) Head: Normocephalic Neck: Supple Respiratory/Chest: No Respiratory Distress, Lungs Clear, Normal Breath Sounds Cardiovascular: Regular Rate, Rhythm, No Murmur GI/Abdominal: Soft, Other (He does complain of some soreness over his liver on palpation but there is no masses no rebound noted no rigidity or guarding. And no distention) Back Exam: Decreased Range of Motion Extremities: Other (2+ edema at the ankles to trace at the knees bilaterally, I do not see any obvious evidence of erythema or infection though there are some small lesions noted on bilateral lower extremities but no infection) Neurological: Confused, Slow to Respond, Other (Agent will awaken with verbal stimuli, he does attempt to answer questions and for the most part seems to have ) Psychiatric: Flat Affect Skin Exam: Warm, Dry, Jaundice Course - Vital Signs Last Recorded V/S: Last Vital Signs Temp 98.2 F 10/18/18 04:39 Pulse 75 10/18/18 04:39 Resp 16 10/18/18 04:39 BP 103/65 10/18/18 04:39 Pulse Ox 95 10/18/18 04:39 - Orders/Labs/Meds Orders: Medication Orders Sodium Chloride (Normal Saline) 1,000 mls @ 125 mls/hr IV ASDIRECTED DHIRAJ Stop: 10/18/18 09:29 Last Admin: 10/18/18 01:58 Dose: 125 mls/hr Insulin Human Lispro (Humalog) 0 unit SUBCUT QIDACANDBED [facility]; Protocol Lactulose (Cephulac) 40 gm PO ONETIME ONE Stop: 10/18/18 09:01 Labs: Laboratory Tests 10/17/18 10/17/18 10/17/18 Range/Units 20:38 20:38 20:38 WBC 3.45 L (4.23-9.07) K/mm3 RBC 3.03 L (4.63-6.08) M/mm3 Hgb 10.2 L (13.7-17.5) gm/L Hct 29.5 L (40.1-51.0) % MCV 97.4 H (79.0-92.2) fl MCH 33.7 H (25.7-32.2) pg MCHC 34.6 (32.2-35.5) g/dl RDW Std Deviation 54.8 H (35.1-43.9) fL Plt Count 46 L (163-337) K/mm3 MPV 10.0 (9.4-12.3) fl Neut % (Auto) 61.4 (34.0-67.9) % Lymph % (Auto) 26.1 (21.8-53.1) % [place] % (Auto) 11.0 (5.3-12.2) % Eos % (Auto) 1.2 (0.8-7.0) Baso % (Auto) 0.3 (0.1-1.2) % Neut # (Auto) 2.12 (1.78-5.38) K/mm3 Lymph # (Auto) 0.90 L (1.32-3.57) K/mm3 [place] # (Auto) 0.38 (0.30-0.82) K/mm3 Eos # (Auto) 0.04 (0.04-0.54) K/mm3 Baso # (Auto) 0.01 (0.01-0.08) K/mm3 Manual Slide Review Abnormal smear PT (9.5-12.1) SECONDS INR Sodium 141 (136-145) mEq/L Potassium 4.0 (3.5-5.1) mEq/L Chloride 110 H (98-107) mEq/L Carbon Dioxide 22 (21-32) mEq/L Anion Gap 13.0 (5-15) BUN 12 (7-18) mg/dL Creatinine 1.1 (0.7-1.3) mg/dL Est Cr Clr Drug Dosing 72.31 mL/min Estimated GFR (MDRD) > 60 (>60) mL/min BUN/Creatinine Ratio 10.9 L (14-18) Glucose 306 H (74-106) mg/dL Calcium 8.4 L (8.5-10.1) mg/dL Magnesium 1.6 L (1.8-2.4) mg/dl Total Bilirubin 2.8 H (0.2-1.0) mg/dL AST 34 (15-37) U/L ALT 31 (16-63) U/L Alkaline Phosphatase 89 (46-116) U/L Ammonia 183 H (11-32) umol/L Total Protein 6.5 (6.4-8.2) g/dl Albumin 1.9 L (3.4-5.0) g/dl Globulin 4.6 gm/dL Albumin/Globulin Ratio 0.4 L (1-2) Lipase 397 H (73-393) U/L 10/17/18 Range/Units 20:38 WBC (4.23-9.07) K/mm3 RBC (4.63-6.08) M/mm3 Hgb (13.7-17.5) gm/L Hct (40.1-51.0) % MCV (79.0-92.2) fl MCH (25.7-32.2) pg MCHC (32.2-35.5) g/dl RDW Std Deviation (35.1-43.9) fL Plt Count (163-337) K/mm3 MPV (9.4-12.3) fl Neut % (Auto) (34.0-67.9) % Lymph % (Auto) (21.8-53.1) % [place] % (Auto) (5.3-12.2) % Eos % (Auto) (0.8-7.0) Baso % (Auto) (0.1-1.2) % Neut # (Auto) (1.78-5.38) K/mm3 Lymph # (Auto) (1.32-3.57) K/mm3 [place] # (Auto) (0.30-0.82) K/mm3 Eos # (Auto) (0.04-0.54) K/mm3 Baso # (Auto) (0.01-0.08) K/mm3 Manual Slide Review PT 15.1 H (9.5-12.1) SECONDS INR 1.39 Sodium (136-145) mEq/L Potassium (3.5-5.1) mEq/L Chloride (98-107) mEq/L Carbon Dioxide (21-32) mEq/L Anion Gap (5-15) BUN (7-18) mg/dL Creatinine (0.7-1.3) mg/dL Est Cr Clr Drug Dosing mL/min Estimated GFR (MDRD) (>60) mL/min BUN/Creatinine Ratio (14-18) Glucose (74-106) mg/dL Calcium (8.5-10.1) mg/dL Magnesium (1.8-2.4) mg/dl Total Bilirubin (0.2-1.0) mg/dL AST (15-37) U/L ALT (16-63) U/L Alkaline Phosphatase (46-116) U/L Ammonia (11-32) umol/L Total Protein (6.4-8.2) g/dl Albumin (3.4-5.0) g/dl Globulin gm/dL Albumin/Globulin Ratio (1-2) Lipase (73-393) U/L Meds: Medications Generic Name Dose Route Start Last Admin Trade Name Freq PRN Reason Stop Dose Admin Sodium Chloride 1,000 mls @ 125 mls/hr 10/18/18 01:30 10/18/18 01:58 Normal Saline IV 10/18/18 09:29 125 mls/hr ASDIRECTED DHIRAJ Administration Insulin Human Lispro 0 unit 10/18/18 07:00 Humalog SUBCUT QIDACANDBED [facility] Protocol Lactulose 40 gm 10/18/18 09:00 Cephulac PO 10/18/18 09:01 ONETIME ONE Discontinued Medications Generic Name Dose Route Start Last Admin Trade Name Freq PRN Reason Stop Dose Admin Erythromycin 250 mg 10/17/18 22:05 10/17/18 22:20 Jed-Tab PO 10/17/18 22:06 250 mg ONETIME ONE Administration Sodium Chloride 1,000 mls @ 100 mls/hr 10/17/18 20:30 10/17/18 21:33 Normal Saline IV 100 mls/hr ASDIRECTED DHIRAJ Administration Sodium Chloride 1,000 mls @ 999 mls/hr 10/18/18 00:24 10/18/18 00:47 Normal Saline IV 10/18/18 01:24 999 mls/hr ONETIME ONE Administration Lactulose 45 gm 10/17/18 22:05 10/17/18 22:18 Cephulac PO 10/17/18 22:06 45 gm ONETIME ONE Administration Pantoprazole Sodium 40 mg 10/18/18 00:50 10/18/18 01:06 Protonix Iv IVPUSH 10/18/18 00:51 40 mg ONETIME ONE Administration - Re-Assessments/Exams Free Text/Narrative Re-Assessment/Exam: 10/17/18 22:00 Spoke to the patient regarding his lab results. He is in hepatic encephalopathy once again and I will speak to the hospitalist transfer station attendant regarding his status. 10/18/18 22:15 I spoke to the patient indicating that he was going to be admitted to the hospital. He agreed to this and he is a full CODE STATUS. His family apparently left and went home. Departure - Departure Time of Disposition: 22:06 Disposition: Admitted As Inpatient 65 Condition: Fair Clinical Impression: Hepatic encephalopathy, Hypocalcemia, Hypomagnesemia, Hyperammonemia, Hyperglycemia, Non-insulin dependent type 2 diabetes mellitus Liver cirrhosis Qualifiers: Hepatic cirrhosis type: alcoholic cirrhosis Ascites presence: with ascites Qualified Code(s): K70.31 - Alcoholic cirrhosis of liver with ascites Coronary artery disease Qualifiers: Coronary Disease-Associated Artery/Lesion type: unspecified vessel or lesion type [place] vs. transplanted heart: [place] heart Associated angina: without angina Qualified Code(s): I25.10 - Atherosclerotic heart disease of [place] coronary artery without angina pectoris Ascites Qualifiers: Ascites type: other type Qualified Code(s): R18.8 - Other ascites - Discharge Information ED Communication - ED Communication Date/Time Date: 10/17/18 Time Called: 22:07 - Discussed Case With (1) Discussed Case With (1): Admitting Provider Person/s Notified (1): Shannan Nuno (She will admit) Person/s Notified (2): Howard Terrell (He will see in the ER)
[2018-10-17] MEDS ORDERED: Sodium Chloride 0.9% 1,000 ML IV SCH (20:30)
[2018-10-17] MEDS ORDERED: Lactulose Soln 10 GM/15 ML 30 ML UD Cup PO ONE (22:05)
[2018-10-18] MEDS ORDERED: Sodium Chloride 0.9% 1,000 ML IV ONE (00:24)
[2018-10-18] MEDS ORDERED: Pantoprazole 40 MG in Sodium Chloride 0.9% 100 ML IV ONE (00:27)
[2018-10-18] MEDS ORDERED: Pantoprazole 40 MG Vial IVPUSH ONE (00:50)
[2018-10-18] MEDS ORDERED: Sodium Chloride 0.9% 1,000 ML IV SCH (01:30)
[2018-10-18] MEDS ORDERED: Lactulose Soln 10 GM/15 ML 30 ML UD Cup PO ONE (09:00)
[2018-10-18] MEDS ORDERED: Sodium Chloride 0.45% 1,000 ML IV ONE (09:30)
[2018-10-18] MEDS ORDERED: Magnesium Sulfate/Water 4 GM in Premix Bag 1 BAG IV ONE (09:30)
--- NOTE | 2018-10-18 09:42 | PCM.HP ---
H&P History of Present Illness - General Date of Service: 10/18/18 Admit Problem/Dx: Admission Diagnosis/Problem Admission Diagnosis/Problem Hepatic encephalopathy Source of Information: Patient, Provider History Limitations: Reports: No Limitations - History of Present Illness Initial Comments - Free Text/Narative: 58 year old male with history of alcoholic cirrhosis with acute mental status change presented with an ammonia level greater than 180. His brother provide the history, he was unable to participate as a result of confusion. There has been no sick contacts, missed medication doses fever/chills/, change in bowel habits or recent change in diet. Onset of Symptoms: Reports: Unknown/Unsure Symptom Onset Date: 10/13/18 Duration of Symptoms: Reports: Day(s):, Getting Worse Location: Reports: Generalized Quality: Reports: Same as Previous Episode Severity: Moderate Improves with: Reports: Medication Worsens with: Reports: None Associated Symptoms: Reports: Confusion, Nausea/Vomiting, Weakness - Related Data Allergies/Adverse Reactions: Allergies Allergy/AdvReac Type Severity Reaction Status Date / Time No Known Allergies Allergy Verified 10/18/18 02:50 Home Medications: Home Meds Cholecalciferol (Vitamin D3) [Vitamin D3] 2,000 unit PO DAILY #30 cap 11/16/17 [ Rx] Pantoprazole [ProTONIX] 40 mg PO DAILY #30 tab.cr 11/16/17 [Rx] Spironolactone 50 mg PO BID #60 tablet 11/16/17 [Rx] Magnesium Oxide 800 mg PO BID 01/08/18 [History] metFORMIN [Glucophage XR] 500 mg PO BID 01/08/18 [History] Lactulose 30 gm PO TID #90 bottle 07/31/18 [Rx] Rifaximin [Xifaxan] 550 mg PO BID #60 tablet 07/31/18 [Rx] Past Medical History Cardiovascular History: Reports: Hypertension Other Cardiovascular History: UNABLE TO OBTAIN INFORMATION PT IS NOT VERBALLY RESPONSIVE AT THIS TIME Respiratory History: Reports: SOB Other Respiratory History: UNABLE TO OBTAIN INFORMATION PT IS NOT VERBALLY RESPONSIVE AT THIS TIME Gastrointestinal History: Reports: Cirrhosis, GERD, GI Bleed Other Gastrointestinal History: liver failure;stomach bleed Genitourinary History: Reports: Other (See Below) Other Genitourinary History: UNABLE TO OBTAIN INFORMATION PT IS NOT VERBALLY RESPONSIVE AT THIS TIME Musculoskeletal History: Reports: Back Pain, Chronic Other Musculoskeletal History: UNABLE TO OBTAIN INFORMATION PT IS NOT VERBALLY RESPONSIVE AT THIS TIME Neurological History: Reports: Other (See Below) Other Neuro History: hepatic encephalopathy Psychiatric History: Reports: Addiction Other Psychiatric History: Alcoholism-recovered addict Endocrine/Metabolic History: Reports: Diabetes, Type II, Hypothyroidism, Obesity /BMI 30+ Hematologic History: Reports: Anemia, Blood Transfusion(s) Other Hematologic History: UNABLE TO OBTAIN INFORMATION PT IS NOT VERBALLY RESPONSIVE AT THIS TIME Other Oncologic History: UNABLE TO OBTAIN INFORMATION PT IS NOT VERBALLY RESPONSIVE AT THIS TIME Dermatologic History: Reports: Cellulitis, Eczema Other Dermatologic History: 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 History of cellulitis to both legs. - Infectious Disease History Infectious Disease History: Reports: Hepatitis non A,B,C, Measles, MRSA Other Infectious Disease History: pt unable to answer - Past Surgical History GI Surgical History: Reports: Other (See Below) Social & Family History - Family History Family Medical History: Noncontributory - Tobacco Use Smoking Status *Q: Former Smoker Used Tobacco, but Quit: Yes Month/Year Tobacco Last Used: 20 Second Hand Smoke Exposure: No - Caffeine Use Caffeine Use: Reports: Coffee, Soda Other Caffeine Use: unable to obtain Caffeine Use Comment: unable to obtain, patient unresponsive - Recreational Drug Use Recreational Drug Use: No - Living Situation & Occupation Living situation: Reports: , with Family Occupation: Employed H&P Review of Systems - Review of Systems: Review Of Systems: See Below General: Reports: Malaise, Weakness HEENT: Reports: No Symptoms Pulmonary: Reports: No Symptoms Cardiovascular: Reports: No Symptoms Gastrointestinal: Reports: No Symptoms Genitourinary: Reports: No Symptoms Musculoskeletal: Reports: No Symptoms Skin: Reports: No Symptoms Psychiatric: Reports: Confusion Neurological: Reports: No Symptoms Hematologic/Lymphatic: Reports: No Symptoms Immunologic: Reports: No Symptoms Exam - Exam Exam: See Below - Vital Signs Vital Signs: Last Vital Signs Temp 36.8 C 10/18/18 04:39 Pulse 75 10/18/18 04:39 Resp 16 10/18/18 04:39 BP 103/65 10/18/18 04:39 Pulse Ox 95 10/18/18 04:39 Weight: 117.344 kg - Exam Quality Assessment: Supplemental Oxygen General: Alert, Oriented, Cooperative HEENT: Conjunctiva Clear, Nares Patent, Normal Nasal Septum, Pupils Equal, Pupils Reactive, PERRLA Neck: Trachea Midline Lungs: Normal Respiratory Effort Cardiovascular: Regular Rate, Regular Rhythm GI/Abdominal Exam: Normal Bowel Sounds, Soft, Non-Tender, No Organomegaly, No Distention (Male) Exam: Deferred Rectal (Males) Exam: Deferred Back Exam: Normal Inspection Extremities: Normal Inspection, Non-Tender, Normal Capillary Refill Skin: Warm Neurological: Cranial Nerves Intact Neuro Extensive - Mental Status: Alert, Oriented x3, Normal Mood/Affect, Normal Cognition, Memory Intact Neuro Extensive - Motor, Sensory, Reflexes: CN II-XII Intact Psychiatric: Alert, Normal Affect, Normal Mood - Patient Data Lab Results Last 24 hrs: Laboratory Results - last 24 hr 10/17/18 10/17/18 10/17/18 Range/Units 20:38 20:38 20:38 WBC 3.45 L (4.23-9.07) K/mm3 RBC 3.03 L (4.63-6.08) M/mm3 Hgb 10.2 L (13.7-17.5) gm/L Hct 29.5 L (40.1-51.0) % MCV 97.4 H (79.0-92.2) fl MCH 33.7 H (25.7-32.2) pg MCHC 34.6 (32.2-35.5) g/dl RDW Std Deviation 54.8 H (35.1-43.9) fL Plt Count 46 L (163-337) K/mm3 MPV 10.0 (9.4-12.3) fl Neut % (Auto) 61.4 (34.0-67.9) % Lymph % (Auto) 26.1 (21.8-53.1) % [place] % (Auto) 11.0 (5.3-12.2) % Eos % (Auto) 1.2 (0.8-7.0) Baso % (Auto) 0.3 (0.1-1.2) % Neut # (Auto) 2.12 (1.78-5.38) K/mm3 Lymph # (Auto) 0.90 L (1.32-3.57) K/mm3 [place] # (Auto) 0.38 (0.30-0.82) K/mm3 Eos # (Auto) 0.04 (0.04-0.54) K/mm3 Baso # (Auto) 0.01 (0.01-0.08) K/mm3 Neutrophils % (Manual) (40-60) % Band Neutrophils % (0-10) % Lymphocytes % (Manual) (20-40) % Atypical Lymphs % % Monocytes % (Manual) (2-10) % Eosinophils % (Manual) (0.8-7.0) % Basophils % (Manual) (0.2-1.2) Manual Slide Review Abnormal smear Platelet Estimate Hypochromasia Anisocytosis RBC Morph Comment PT (9.5-12.1) SECONDS INR Sodium 141 (136-145) mEq/L Potassium 4.0 (3.5-5.1) mEq/L Chloride 110 H (98-107) mEq/L Carbon Dioxide 22 (21-32) mEq/L Anion Gap 13.0 (5-15) BUN 12 (7-18) mg/dL Creatinine 1.1 (0.7-1.3) mg/dL Est Cr Clr Drug Dosing 72.31 mL/min Estimated GFR (MDRD) > 60 (>60) mL/min BUN/Creatinine Ratio 10.9 L (14-18) Glucose 306 H (74-106) mg/dL POC Glucose (70-105) mg/dL Calcium 8.4 L (8.5-10.1) mg/dL Magnesium 1.6 L (1.8-2.4) mg/dl Total Bilirubin 2.8 H (0.2-1.0) mg/dL AST 34 (15-37) U/L ALT 31 (16-63) U/L Alkaline Phosphatase 89 (46-116) U/L Ammonia 183 H (11-32) umol/L C-Reactive Protein (<1.0) mg/dL Total Protein 6.5 (6.4-8.2) g/dl Albumin 1.9 L (3.4-5.0) g/dl Globulin 4.6 gm/dL Albumin/Globulin Ratio 0.4 L (1-2) Lipase 397 H (73-393) U/L MRSA (PCR) 10/17/18 10/17/18 10/17/18 Range/Units 20:38 23:27 23:55 WBC (4.23-9.07) K/mm3 RBC (4.63-6.08) M/mm3 Hgb (13.7-17.5) gm/L Hct (40.1-51.0) % MCV (79.0-92.2) fl MCH (25.7-32.2) pg MCHC (32.2-35.5) g/dl RDW Std Deviation (35.1-43.9) fL Plt Count (163-337) K/mm3 MPV (9.4-12.3) fl Neut % (Auto) (34.0-67.9) % Lymph % (Auto) (21.8-53.1) % [place] % (Auto) (5.3-12.2) % Eos % (Auto) (0.8-7.0) Baso % (Auto) (0.1-1.2) % Neut # (Auto) (1.78-5.38) K/mm3 Lymph # (Auto) (1.32-3.57) K/mm3 [place] # (Auto) (0.30-0.82) K/mm3 Eos # (Auto) (0.04-0.54) K/mm3 Baso # (Auto) (0.01-0.08) K/mm3 Neutrophils % (Manual) (40-60) % Band Neutrophils % (0-10) % Lymphocytes % (Manual) (20-40) % Atypical Lymphs % % Monocytes % (Manual) (2-10) % Eosinophils % (Manual) (0.8-7.0) % Basophils % (Manual) (0.2-1.2) Manual Slide Review Platelet Estimate Hypochromasia Anisocytosis RBC Morph Comment PT 15.1 H (9.5-12.1) SECONDS INR 1.39 Sodium (136-145) mEq/L Potassium (3.5-5.1) mEq/L Chloride (98-107) mEq/L Carbon Dioxide (21-32) mEq/L Anion Gap (5-15) BUN (7-18) mg/dL Creatinine (0.7-1.3) mg/dL Est Cr Clr Drug Dosing mL/min Estimated GFR (MDRD) (>60) mL/min BUN/Creatinine Ratio (14-18) Glucose (74-106) mg/dL POC Glucose 279 H (70-105) mg/dL Calcium (8.5-10.1) mg/dL Magnesium (1.8-2.4) mg/dl Total Bilirubin (0.2-1.0) mg/dL AST (15-37) U/L ALT (16-63) U/L Alkaline Phosphatase (46-116) U/L Ammonia (11-32) umol/L C-Reactive Protein (<1.0) mg/dL Total Protein (6.4-8.2) g/dl Albumin (3.4-5.0) g/dl Globulin gm/dL Albumin/Globulin Ratio (1-2) Lipase (73-393) U/L MRSA (PCR) Negative 10/18/18 10/18/18 10/18/18 Range/Units 05:36 05:37 05:37 WBC 2.43 L* (4.23-9.07) K/mm3 RBC 2.76 L (4.63-6.08) M/mm3 Hgb 9.3 L (13.7-17.5) gm/L Hct 27.1 L (40.1-51.0) % MCV 98.2 H (79.0-92.2) fl MCH 33.7 H (25.7-32.2) pg MCHC 34.3 (32.2-35.5) g/dl RDW Std Deviation 54.7 H (35.1-43.9) fL Plt Count 42 L (163-337) K/mm3 MPV 10.2 (9.4-12.3) fl Neut % (Auto) (34.0-67.9) % Lymph % (Auto) (21.8-53.1) % [place] % (Auto) (5.3-12.2) % Eos % (Auto) (0.8-7.0) Baso % (Auto) (0.1-1.2) % Neut # (Auto) (1.78-5.38) K/mm3 Lymph # (Auto) (1.32-3.57) K/mm3 [place] # (Auto) (0.30-0.82) K/mm3 Eos # (Auto) (0.04-0.54) K/mm3 Baso # (Auto) (0.01-0.08) K/mm3 Neutrophils % (Manual) 64 H (40-60) % Band Neutrophils % 1 (0-10) % Lymphocytes % (Manual) 28 (20-40) % Atypical Lymphs % 0 % Monocytes % (Manual) 2 (2-10) % Eosinophils % (Manual) 5 (0.8-7.0) % Basophils % (Manual) 0 L (0.2-1.2) Manual Slide Review Platelet Estimate Marked dec Hypochromasia Moderate Anisocytosis Moderate RBC Morph Comment Not Reportable PT (9.5-12.1) SECONDS INR Sodium 138 (136-145) mEq/L Potassium 3.7 (3.5-5.1) mEq/L Chloride 110 H (98-107) mEq/L Carbon Dioxide 20 L (21-32) mEq/L Anion Gap 11.7 (5-15) BUN 11 (7-18) mg/dL Creatinine 0.9 (0.7-1.3) mg/dL Est Cr Clr Drug Dosing 88.38 mL/min Estimated GFR (MDRD) > 60 (>60) mL/min BUN/Creatinine Ratio 12.2 L (14-18) Glucose 208 H (74-106) mg/dL POC Glucose 215 H (70-105) mg/dL Calcium 7.6 L (8.5-10.1) mg/dL Magnesium 1.5 L (1.8-2.4) mg/dl Total Bilirubin (0.2-1.0) mg/dL AST (15-37) U/L ALT (16-63) U/L Alkaline Phosphatase (46-116) U/L Ammonia (11-32) umol/L C-Reactive Protein 0.3 (<1.0) mg/dL Total Protein (6.4-8.2) g/dl Albumin (3.4-5.0) g/dl Globulin gm/dL Albumin/Globulin Ratio (1-2) Lipase (73-393) U/L MRSA (PCR) 10/18/18 Range/Units 05:37 WBC (4.23-9.07) K/mm3 RBC (4.63-6.08) M/mm3 Hgb (13.7-17.5) gm/L Hct (40.1-51.0) % MCV (79.0-92.2) fl MCH (25.7-32.2) pg MCHC (32.2-35.5) g/dl RDW Std Deviation (35.1-43.9) fL Plt Count (163-337) K/mm3 MPV (9.4-12.3) fl Neut % (Auto) (34.0-67.9) % Lymph % (Auto) (21.8-53.1) % [place] % (Auto) (5.3-12.2) % Eos % (Auto) (0.8-7.0) Baso % (Auto) (0.1-1.2) % Neut # (Auto) (1.78-5.38) K/mm3 Lymph # (Auto) (1.32-3.57) K/mm3 [place] # (Auto) (0.30-0.82) K/mm3 Eos # (Auto) (0.04-0.54) K/mm3 Baso # (Auto) (0.01-0.08) K/mm3 Neutrophils % (Manual) (40-60) % Band Neutrophils % (0-10) % Lymphocytes % (Manual) (20-40) % Atypical Lymphs % % Monocytes % (Manual) (2-10) % Eosinophils % (Manual) (0.8-7.0) % Basophils % (Manual) (0.2-1.2) Manual Slide Review Platelet Estimate Hypochromasia Anisocytosis RBC Morph Comment PT (9.5-12.1) SECONDS INR Sodium (136-145) mEq/L Potassium (3.5-5.1) mEq/L Chloride (98-107) mEq/L Carbon Dioxide (21-32) mEq/L Anion Gap (5-15) BUN (7-18) mg/dL Creatinine (0.7-1.3) mg/dL Est Cr Clr Drug Dosing mL/min Estimated GFR (MDRD) (>60) mL/min BUN/Creatinine Ratio (14-18) Glucose (74-106) mg/dL POC Glucose (70-105) mg/dL Calcium (8.5-10.1) mg/dL Magnesium (1.8-2.4) mg/dl Total Bilirubin (0.2-1.0) mg/dL AST (15-37) U/L ALT (16-63) U/L Alkaline Phosphatase (46-116) U/L Ammonia 133 H (11-32) umol/L C-Reactive Protein (<1.0) mg/dL Total Protein (6.4-8.2) g/dl Albumin (3.4-5.0) g/dl Globulin gm/dL Albumin/Globulin Ratio (1-2) Lipase (73-393) U/L MRSA (PCR) Result Diagrams: 10/18/18 05:37 10/18/18 05:37 Problem List Initiated/Reviewed/Updated: Yes Orders Last 24hrs: Active Orders 24 hr Category Date Time Status Admission Status [Patient Status] [ADT] Routine ADT 10/17/18 22:49 Active Antiembolic Devices [RC] 10,22 Care 10/18/18 00:28 Active Blood Glucose Check, Bedside [RC] QIDACANDBED Care 10/18/18 00:32 Active NPO Now [Nothing per Oral Now Diet] [DIET] Diet 10/18/18 Breakfast Active CULTURE MRSA SURVEY [RM] Routine Lab 10/17/18 23:55 Received Erythromycin Base [Jed-Tab] Med 10/18/18 10:00 Active 250 mg PO Q6H Insulin Lispro [HumaLOG] Med 10/18/18 07:00 Active See Protocol SUBCUT QIDACANDBED Lactulose [Cephulac] Med 10/18/18 14:00 Active 40 gm PO Q8H Magnesium Sulfate/Water [Magnesium Sulfate 4 GM in Med 10/18/18 09:30 Active Water 100 ML] 4 gm Premix Bag 1 bag IV ONETIME Sodium Chloride 0.45% 1,000 ml Med 10/18/18 09:30 Active IV ONETIME CYNTHIA Hose [Antiembolic Hose] [OM.PC] Routine Oth 10/18/18 00:28 Ordered Code Status [Resuscitation Status] Routine Resus Stat 10/18/18 02:49 Ordered Medication Orders Erythromycin (Jed-Tab) 250 mg PO Q6H DHIRAJ Magnesium Sulfate 4 gm/ Premix 100 mls @ 25 mls/hr IV ONETIME ONE Stop: 10/18/18 13:29 Sodium Chloride (Sodium Chloride 0.45%) 1,000 mls @ 999 mls/hr IV ONETIME ONE Stop: 10/18/18 10:30 Insulin Human Lispro (Humalog) 0 unit SUBCUT QIDACANDBED DHIRAJ; Protocol Lactulose (Cephulac) 40 gm PO Q8H DHIRAJ Assessment/Plan Comment:: Impression: AMS/Hepatic encephalopathy; ammonia level, 183. Hyperglycemia Hypomagnesemia Pancytopenia Chronic GERD DM type 2 HTN Obesity, BMI 38.7 Hepatitis Plan: IVF Lactulose/Erythromycin Daily labs Home meds Contact precautions DVT/GI prophylaxis, CYNTHIA
[2018-10-18] MEDS: Insulin Lispro 100 Units/ML 3 ML Vial SUBCUT SCH ×4 (11:11→21:21)
[2018-10-18] MEDS ORDERED: 50% Dextrose in Water 50 ML Syringe IVPUSH PRN (12:05)
[2018-10-18] MEDS: Lactulose Soln 10 GM/15 ML 30 ML UD Cup PO SCH ×2 (13:05→21:16)
[2018-10-18] MEDS: Spironolactone 25 MG Tab PO SCH (13:05)
[2018-10-18] MEDS: Rifaximin 550 MG Tab PO SCH ×2 (13:05→21:19)
[2018-10-18] MEDS: metFORMIN 500 MG Tab PO SCH (16:48)
[2018-10-18] MEDS: Magnesium Oxide 400 MG Tab PO SCH (21:18)
[2018-10-19] MEDS ORDERED: Magnesium Sulfate/Water 2 GM in Premix Bag 1 BAG IV SCH (03:45)
[2018-10-19] MEDS: Lactulose Soln 10 GM/15 ML 30 ML UD Cup PO SCH ×3 (05:20→21:00)
[2018-10-19] MEDS: Spironolactone 25 MG Tab PO SCH ×2 (05:20→14:20)
[2018-10-19] MEDS: metFORMIN 500 MG Tab PO SCH ×2 (06:37→17:34)
[2018-10-19] MEDS: Insulin Lispro 100 Units/ML 3 ML Vial SUBCUT SCH ×4 (06:42→21:00)
[2018-10-19] MEDS ORDERED: Magnesium Sulfate/Water 4 GM in Premix Bag 1 BAG IV ONE (08:26)
[2018-10-19] MEDS: Magnesium Oxide 400 MG Tab PO SCH ×2 (09:21→20:40)
[2018-10-19] MEDS: Pantoprazole 40 MG Tab.CR PO SCH (09:21)
[2018-10-19] MEDS: Rifaximin 550 MG Tab PO SCH ×2 (09:21→20:40)
[2018-10-19] MEDS: Potassium Chloride 20 MEQ Tab.ER PO SCH ×2 (09:21→20:39)
[2018-10-19] MEDS: Cholecalciferol (Vitamin D3) 1,000 Unit Tab PO SCH (09:21)
--- NOTE | 2018-10-19 10:47 | PCM.PN ---
- General Info Date of Service: 10/19/18 Functional Status: Reports: Pain Controlled, Tolerating Diet, Ambulating, Urinating - Review of Systems General: Reports: Weakness HEENT: Reports: No Symptoms Pulmonary: Reports: No Symptoms Cardiovascular: Reports: No Symptoms Gastrointestinal: Reports: No Symptoms Genitourinary: Reports: No Symptoms Musculoskeletal: Reports: No Symptoms Skin: Reports: No Symptoms Neurological: Reports: No Symptoms Psychiatric: Reports: No Symptoms - Patient Data Vitals - Most Recent: Last Vital Signs Temp 37.2 C 10/19/18 05:17 Pulse 78 10/19/18 05:17 Resp 16 10/19/18 05:17 BP 111/81 10/19/18 05:17 Pulse Ox 97 10/19/18 05:17 Weight - Most Recent: 120.157 kg I&O - Last 24 Hours: Intake & Output 10/18/18 10/19/18 10/19/18 21:59 06:59 14:59 Intake Total Output Total Balance Lab Results Last 24 Hours: Laboratory Results - last 24 hr 10/18/18 10/18/18 10/18/18 Range/Units 11:24 16:50 21:10 WBC (4.23-9.07) K/mm3 RBC (4.63-6.08) M/mm3 Hgb (13.7-17.5) gm/L Hct (40.1-51.0) % MCV (79.0-92.2) fl MCH (25.7-32.2) pg MCHC (32.2-35.5) g/dl RDW Std Deviation (35.1-43.9) fL Plt Count (163-337) K/mm3 MPV (9.4-12.3) fl Neut % (Auto) (34.0-67.9) % Lymph % (Auto) (21.8-53.1) % [place] % (Auto) (5.3-12.2) % Eos % (Auto) (0.8-7.0) Baso % (Auto) (0.1-1.2) % Neut # (Auto) (1.78-5.38) K/mm3 Lymph # (Auto) (1.32-3.57) K/mm3 [place] # (Auto) (0.30-0.82) K/mm3 Eos # (Auto) (0.04-0.54) K/mm3 Baso # (Auto) (0.01-0.08) K/mm3 Manual Slide Review Sodium (136-145) mEq/L Potassium (3.5-5.1) mEq/L Chloride (98-107) mEq/L Carbon Dioxide (21-32) mEq/L Anion Gap (5-15) BUN (7-18) mg/dL Creatinine (0.7-1.3) mg/dL Est Cr Clr Drug Dosing mL/min Estimated GFR (MDRD) (>60) mL/min BUN/Creatinine Ratio (14-18) Glucose (74-106) mg/dL POC Glucose 171 H 243 H 213 H (70-105) mg/dL Lactic Acid (0.4-2.0) mmol/L Calcium (8.5-10.1) mg/dL Magnesium (1.8-2.4) mg/dl Ammonia (11-32) umol/L C-Reactive Protein (<1.0) mg/dL TSH 3rd Generation (0.358-3.74) uIU/mL 10/19/18 10/19/18 10/19/18 Range/Units 06:42 06:52 06:52 WBC 2.99 L (4.23-9.07) K/mm3 RBC 3.03 L (4.63-6.08) M/mm3 Hgb 10.1 L (13.7-17.5) gm/L Hct 29.3 L (40.1-51.0) % MCV 96.7 H (79.0-92.2) fl MCH 33.3 H (25.7-32.2) pg MCHC 34.5 (32.2-35.5) g/dl RDW Std Deviation 54.8 H (35.1-43.9) fL Plt Count 44 L (163-337) K/mm3 MPV 10.1 (9.4-12.3) fl Neut % (Auto) 54.9 (34.0-67.9) % Lymph % (Auto) 31.1 (21.8-53.1) % [place] % (Auto) 10.7 (5.3-12.2) % Eos % (Auto) 3.0 (0.8-7.0) Baso % (Auto) 0.3 (0.1-1.2) % Neut # (Auto) 1.64 L (1.78-5.38) K/mm3 Lymph # (Auto) 0.93 L (1.32-3.57) K/mm3 [place] # (Auto) 0.32 (0.30-0.82) K/mm3 Eos # (Auto) 0.09 (0.04-0.54) K/mm3 Baso # (Auto) 0.01 (0.01-0.08) K/mm3 Manual Slide Review Abnormal smear Sodium 140 (136-145) mEq/L Potassium 3.5 (3.5-5.1) mEq/L Chloride 111 H (98-107) mEq/L Carbon Dioxide 20 L (21-32) mEq/L Anion Gap 12.5 (5-15) BUN 7 (7-18) mg/dL Creatinine 0.9 (0.7-1.3) mg/dL Est Cr Clr Drug Dosing 88.38 mL/min Estimated GFR (MDRD) > 60 (>60) mL/min BUN/Creatinine Ratio 7.8 L (14-18) Glucose 134 H (74-106) mg/dL POC Glucose 136 H (70-105) mg/dL Lactic Acid (0.4-2.0) mmol/L Calcium 8.1 L (8.5-10.1) mg/dL Magnesium 1.7 L (1.8-2.4) mg/dl Ammonia (11-32) umol/L C-Reactive Protein 0.4 (<1.0) mg/dL TSH 3rd Generation 4.848 H (0.358-3.74) uIU/mL 10/19/18 10/19/18 Range/Units 06:52 06:52 WBC (4.23-9.07) K/mm3 RBC (4.63-6.08) M/mm3 Hgb (13.7-17.5) gm/L Hct (40.1-51.0) % MCV (79.0-92.2) fl MCH (25.7-32.2) pg MCHC (32.2-35.5) g/dl RDW Std Deviation (35.1-43.9) fL Plt Count (163-337) K/mm3 MPV (9.4-12.3) fl Neut % (Auto) (34.0-67.9) % Lymph % (Auto) (21.8-53.1) % [place] % (Auto) (5.3-12.2) % Eos % (Auto) (0.8-7.0) Baso % (Auto) (0.1-1.2) % Neut # (Auto) (1.78-5.38) K/mm3 Lymph # (Auto) (1.32-3.57) K/mm3 [place] # (Auto) (0.30-0.82) K/mm3 Eos # (Auto) (0.04-0.54) K/mm3 Baso # (Auto) (0.01-0.08) K/mm3 Manual Slide Review Sodium (136-145) mEq/L Potassium (3.5-5.1) mEq/L Chloride (98-107) mEq/L Carbon Dioxide (21-32) mEq/L Anion Gap (5-15) BUN (7-18) mg/dL Creatinine (0.7-1.3) mg/dL Est Cr Clr Drug Dosing mL/min Estimated GFR (MDRD) (>60) mL/min BUN/Creatinine Ratio (14-18) Glucose (74-106) mg/dL POC Glucose (70-105) mg/dL Lactic Acid 1.4 (0.4-2.0) mmol/L Calcium (8.5-10.1) mg/dL Magnesium (1.8-2.4) mg/dl Ammonia 73 H (11-32) umol/L C-Reactive Protein (<1.0) mg/dL TSH 3rd Generation (0.358-3.74) uIU/mL [facility] Results Last 24 Hours: Microbiology 10/17/18 23:40 MRSA Culture - Final Axilla, Unspecified NO MRSA ISOLATED 10/18/18 17:05 Influenza Type A Antigen Screen - Final Nasopharyngeal Swab NEGATIVE INFLUENZA A VIRUS AG Influenza Type B Antigen Screen - Final NEGATIVE INFLUENZA B VIRUS AG Med Orders - Current: Current Medications Cholecalciferol (Vitamin D3) 2,000 units PO DAILY DHIRAJ Last Admin: 10/19/18 09:21 Dose: 2,000 units Dextrose/Water (Dextrose 50% In Water) 50 ml IVPUSH ASDIRECTED PRN PRN Reason: Hypoglycemia Erythromycin (Jed-Tab) 250 mg PO Q6H [facility] Last Admin: 10/19/18 09:21 Dose: 250 mg Insulin Human Lispro (Humalog) 0 unit SUBCUT QIDACANDBED [facility]; Protocol Last Admin: 10/19/18 06:42 Dose: Not Given Lactulose (Cephulac) 40 gm PO Q8H [facility] Last Admin: 10/19/18 05:20 Dose: 40 gm Magnesium Oxide (Magnesium Oxide) 800 mg PO BID [facility] Last Admin: 10/19/18 09:21 Dose: 800 mg Metformin HCl (Glucophage) 500 mg PO BIDMEALS [facility] Last Admin: 10/19/18 06:37 Dose: 500 mg Pantoprazole Sodium (Protonix) 40 mg PO DAILY [facility] Last Admin: 10/19/18 09:21 Dose: 40 mg Potassium Chloride (Klor-Con M20) 40 meq PO BID [facility] Stop: 10/20/18 09:01 Last Admin: 10/19/18 09:21 Dose: 40 meq Rifaximin (Xifaxan) 550 mg PO BID [facility] Last Admin: 10/19/18 09:21 Dose: 550 mg Spironolactone (Aldactone) 50 mg PO BIDDIURETIC [facility] Last Admin: 10/19/18 05:20 Dose: 50 mg Discontinued Medications Erythromycin (Jed-Tab) 250 mg PO ONETIME ONE Stop: 10/17/18 22:06 Last Admin: 10/17/18 22:20 Dose: 250 mg Sodium Chloride (Normal Saline) 1,000 mls @ 100 mls/hr IV ASDIRECTED [facility] Last Admin: 10/17/18 21:33 Dose: 100 mls/hr Sodium Chloride (Normal Saline) 1,000 mls @ 999 mls/hr IV ONETIME ONE Stop: 10/18/18 01:24 Last Admin: 10/18/18 00:47 Dose: 999 mls/hr Sodium Chloride (Normal Saline) 1,000 mls @ 125 mls/hr IV ASDIRECTED [facility] [place] Stop: 10/18/18 09:29 Last Admin: 10/18/18 01:58 Dose: 125 mls/hr Magnesium Sulfate 4 gm/ Premix 100 mls @ 25 mls/hr IV ONETIME ONE Stop: 10/18/18 13:29 Last Admin: 10/18/18 13:05 Dose: 25 mls/hr Sodium Chloride (Sodium Chloride 0.45%) 1,000 mls @ 999 mls/hr IV ONETIME ONE Stop: 10/18/18 10:30 Last Admin: 10/18/18 11:05 Dose: 999 mls/hr Magnesium Sulfate 4 gm/ Premix 100 mls @ 25 mls/hr IV ONETIME ONE Stop: 10/19/18 08:27 Last Admin: 10/19/18 09:20 Dose: 25 mls/hr Lactulose (Cephulac) 45 gm PO ONETIME ONE Stop: 10/17/18 22:06 Last Admin: 10/17/18 22:18 Dose: 45 gm Lactulose (Cephulac) 40 gm PO ONETIME ONE Stop: 10/18/18 09:01 Last Admin: 10/18/18 11:10 Dose: 40 gm Pantoprazole Sodium (Protonix Iv) 40 mg IVPUSH ONETIME ONE Stop: 10/18/18 00:51 Last Admin: 10/18/18 01:06 Dose: 40 mg - Exam Quality Assessment: DVT Prophylaxis General: Alert, Oriented, Cooperative, No Acute Distress HEENT: Pupils Equal, Pupils Reactive, EOMI Neck: Trachea Midline, No JVD Lungs: Normal Respiratory Effort Cardiovascular: Regular Rate, Regular Rhythm GI/Abdominal Exam: Normal Bowel Sounds, Soft, Non-Tender, No Organomegaly, No Distention (Male) Exam: Deferred Back Exam: Normal Inspection Extremities: Normal Inspection, Non-Tender, Normal Capillary Refill Skin: Warm Neurological: No New Focal Deficit, Normal Speech Psy/Mental Status: Alert, Normal Affect, Normal Mood - Problem List Review Problem List Initiated/Reviewed/Updated: Yes - My Orders Last 24 Hours: My Active Orders 10/18/18 10:00 Erythromycin Base [Jde-Tab] 250 mg PO Q6H 10/18/18 12:05 Dextrose 50% in Water 50 ml IVPUSH ASDIRECTED PRN 10/18/18 12:30 Rifaximin [Xifaxan] 550 mg PO BID 10/18/18 12:37 Isolation [COMM] Routine 10/18/18 14:00 Lactulose [Cephulac] 40 gm PO Q8H Spironolactone [Aldactone] 50 mg PO BIDDIURETIC 10/18/18 17:00 metFORMIN [Glucophage] 500 mg PO BIDMEALS 10/18/18 19:55 Patient Status [ADT] Routine 10/18/18 21:00 Magnesium Oxide 800 mg PO BID 10/19/18 07:36 Up ad Ritu [RC] ASDIRECTED 10/19/18 09:00 Cholecalciferol (Vitamin D3) [Vitamin D3] 2,000 units PO DAILY Pantoprazole [ProTONIX] 40 mg PO DAILY Potassium Chloride [Klor-Con M20] 40 meq PO BID 10/19/18 Breakfast ADA Diabetic [[employer] Diet] [DIET] 10/20/18 05:00 AMMONIA VENOUS [CHEM] DAILY BMP [BASIC METABOLIC PANEL,BMP] [CHEM] DAILY CBC WITH AUTO DIFF [HEME] DAILY CRP [C-REACTIVE PROTEIN] [CHEM] DAILY MAGNESIUM [CHEM] DAILY 10/21/18 05:00 AMMONIA VENOUS [CHEM] DAILY BMP [BASIC METABOLIC PANEL,BMP] [CHEM] DAILY CBC WITH AUTO DIFF [HEME] DAILY CRP [C-REACTIVE PROTEIN] [CHEM] DAILY MAGNESIUM [CHEM] DAILY 10/22/18 05:00 AMMONIA VENOUS [CHEM] DAILY BMP [BASIC METABOLIC PANEL,BMP] [CHEM] DAILY CBC WITH AUTO DIFF [HEME] DAILY CRP [C-REACTIVE PROTEIN] [CHEM] DAILY MAGNESIUM [CHEM] DAILY - Plan Plan:: Impression: AMS/Hepatic encephalopathy; ammonia level, 183-->73. Hyperglycemia-->improved Hypomagnesemia-->improving Pancytopenia-->stable Chronic GERD DM type 2 HTN Obesity, BMI 38.7 Hepatitis Plan: IVF Advance diet to Lactulose/Erythromycin Daily labs Home meds Contact precautions DVT/GI prophylaxis, CYNTHIA DC 24-48 hours.
[2018-10-20] MEDS: Spironolactone 25 MG Tab PO SCH ×2 (05:47→15:30)
[2018-10-20] MEDS: Lactulose Soln 10 GM/15 ML 30 ML UD Cup PO SCH ×2 (05:48→15:30)
[2018-10-20] MEDS: metFORMIN 500 MG Tab PO SCH (06:46)
--- NOTE | 2018-10-20 07:12 | PCM.DCSUM1 ---
Discharge Summary - Hospital Course HPI Initial Comments: 58 year old male with history of alcoholic cirrhosis with acute mental status change presented with an ammonia level greater than 180. His brother provide the history, he was unable to participate as a result of confusion. There has been no sick contacts, missed medication doses fever/chills/, change in bowel habits or recent change in diet. Diagnosis: Stroke: No - Discharge Data Discharge Date: 10/20/18 (Admit date: 10/17/18) Discharge Disposition: Home, Self-Care 01 Condition: Good - Discharge Diagnosis/Problem(s) (1) Ascites SNOMED Code(s): 391932445 ICD Code: R18.8 - OTHER ASCITES Status: Chronic Priority: Medium Current Visit: Yes Qualifiers: Ascites type: other type Qualified Code(s): R18.8 - Other ascites (2) Coronary artery disease SNOMED Code(s): 59773989 ICD Code: I25.10 - ATHSCL HEART DISEASE OF [place] CORONARY ARTERY W/O ANG PCTRS Status: Chronic Priority: Medium Current Visit: Yes Qualifiers: Coronary Disease-Associated Artery/Lesion type: unspecified vessel or lesion type [place] vs. transplanted heart: [place] heart Associated angina: without angina Qualified Code(s): I25.10 - Atherosclerotic heart disease of [place] coronary artery without angina pectoris (3) Elevated blood sugar SNOMED Code(s): 13233678 ICD Code: R73.9 - HYPERGLYCEMIA, UNSPECIFIED Status: Chronic Priority: Medium Current Visit: Yes (4) Hepatic encephalopathy SNOMED Code(s): 12780521 ICD Code: K72.90 - HEPATIC FAILURE, UNSPECIFIED WITHOUT COMA Status: Acute Priority: High Current Visit: Yes (5) Hypocalcemia SNOMED Code(s): 0295535 ICD Code: E83.51 - HYPOCALCEMIA Status: Acute Current Visit: Yes (6) Hypomagnesemia SNOMED Code(s): 820328672 ICD Code: E83.42 - HYPOMAGNESEMIA Status: Acute Priority: High Current Visit: Yes (7) Non-insulin dependent type 2 diabetes mellitus SNOMED Code(s): 67081912 ICD Code: E11.9 - TYPE 2 DIABETES MELLITUS WITHOUT COMPLICATIONS Status: Chronic Current Visit: Yes (8) Liver cirrhosis SNOMED Code(s): 76175932 ICD Code: K74.60 - UNSPECIFIED CIRRHOSIS OF LIVER Status: Chronic Priority: High Current Visit: Yes Problem Details: s/p TIPS with Dr. Hernandez in [place], GI with [facility]; 2014 Qualifiers: Hepatic cirrhosis type: alcoholic cirrhosis Ascites presence: with ascites Qualified Code(s): K70.31 - Alcoholic cirrhosis of liver with ascites (9) Serum ammonia increased SNOMED Code(s): 8335179 ICD Code: E72.20 - DISORDER OF UREA CYCLE METABOLISM, UNSPECIFIED Status: Acute Priority: High Current Visit: Yes - Patient Summary/Data Labs Pending at D/C: None Recommended Follow-up Testing/Procedures: Follow-up with PCP within 7-10 days of discharge, sooner if needed. Follow-up with GI as scheduled. Hospital Course: Impression: AMS/Hepatic encephalopathy; ammonia level, 183-->73. Hyperglycemia-->improved Hypomagnesemia-->improving Pancytopenia-->stable Chronic GERD DM type 2 HTN Obesity, BMI 38.7 Hepatitis Plan: IVF Advance diet to Lactulose/Erythromycin Daily labs Home meds Contact precautions DVT/GI prophylaxis, CYNTHIA DC 24-48 hours. aKden is very well-known to this service and was admitted for hepatic encephalopathy with an ammonia level of 183. He was started on erythromycin as well as 3 times a day 40 mg lactulose. His ammonia did rapidly improve and today was noted to be 87. It is noted that he does increase quite a bit after eating. He reported to multiple staff that he has been taking his lactulose as prescribed. We will adjust his dosing and also give him a when necessary dose as he reports he does occasionally feel that he is getting more confused and knows his ammonia is elevating. We will also discuss this with family as they may be a good resource to give him when necessary lactulose. Magnesium was noted to be 1.6 on admission and has bounced around somewhat. He is on twice a day home supplementation which will be continued. He was given IV magnesium supplementation prior to leaving. He is already on daily supplementation. Blood sugars have remained stable. He is much more alert today and responds to all questions appropriately. We will change his lactulose to 45 mg twice a day. He did state that taking lactulose does interfere with work and therefore is felt the twice a day dosing may be more convenient for him. We also discussed the PRN and he is aware although he may take it during the day and miss work then he likely will not need to be admitted later on which could lead to several days away from work. Rx will be sent for 30gm PRN lactulose for when he or his family notes increased confusion or signs of elevated ammonia. Home medications were otherwise continued. He is directed to follow up with his primary care provider within one week. He reports he has a already scheduled appointment with GI this month. He was instructed to be sure he attend that appointment. He will be discharged today. - Patient Instructions Diet: Diabetic Diet Activity: As Tolerated Notify Provider of: Fever, Increased Pain, Nausea and/or Vomiting Other/Special Instructions: -Follow-up with primary care provider within 7-10 days, sooner if needed. -Follow-up with GI at scheduled appointment. -Your lactulost dosing has changed. You should now take 60gm twice daily everyday. - If you or your family notice increased confusion or signs that your ammonia is likely increasing you should take an additional 45gm. -Should symptoms return or worsen contact primary care provider, walk-in clinic, or return to the ED. - Discharge Plan *PRESCRIPTION DRUG MONITORING PROGRAM REVIEWED*: No *COPY OF PRESCRIPTION DRUG MONITORING REPORT IN PATIENT RAVI: No Prescriptions/Med Rec: Lactulose 30 gm PO Q12HR PRN #1 bottle PRN Reason: Worsening confusion Lactulose 45 gm PO BID #10 bottle Home Medications: Home Meds Cholecalciferol (Vitamin D3) [Vitamin D3] 2,000 unit PO DAILY #30 cap 11/16/17 [ Rx] Pantoprazole [ProTONIX] 40 mg PO DAILY #30 tab.cr 11/16/17 [Rx] Magnesium Oxide 800 mg PO BID 01/08/18 [History] metFORMIN [Glucophage XR] 500 mg PO BID 01/08/18 [History] Rifaximin [Xifaxan] 550 mg PO BID #60 tablet 07/31/18 [Rx] Lactulose 30 gm PO Q12HR PRN #1 bottle 10/20/18 [Rx] Lactulose 45 gm PO BID #10 bottle 10/20/18 [Rx] Spironolactone [Aldactone] 12.5 mg PO BID 10/20/18 [History] Oxygen Therapy Mode: Room Air Patient Handouts: Hepatic Encephalopathy Forms: ED Department Discharge Referrals: PCP,Not In Area [Primary Care Provider] - (please schedule a follow up appointment with your primary care provider within 7-10 days.) - Discharge Summary/Plan Comment DC Time >30 min.: Yes (40 minutes ) - General Info Date of Service: 10/20/18 Admission Dx/Problem (Free Text: Admission Diagnosis/Problem Admission Diagnosis/Problem Hepatic encephalopathy Subjective Update: In to see Eric. He is lying in bed and doing very well. His lactulose dosing was changed and prescriptions were written. He is back to baseline. He will be discharged today. Functional Status: Reports: Pain Controlled, Tolerating Diet, Ambulating, Urinating. Denies: New Symptoms - Review of Systems General: Reports: No Symptoms. Denies: Weakness, Chills HEENT: Reports: No Symptoms Pulmonary: Reports: No Symptoms. Denies: Shortness of Breath, Pleuritic Chest Pain, Cough, Sputum, Wheezing Cardiovascular: Reports: No Symptoms. Denies: Chest Pain, Palpitations, Dyspnea on Exertion Gastrointestinal: Reports: Diarrhea (2/2 lactulose and erythromycin). Denies: Abdominal Pain, Constipation, Decreased Appetite, Nausea, Vomiting Genitourinary: Reports: No Symptoms. Denies: Pain Musculoskeletal: Reports: No Symptoms Skin: Reports: No Symptoms Neurological: Reports: No Symptoms. Denies: Confusion, Trouble Speaking, Difficulty Walking, Gait Disturbance Psychiatric: Reports: No Symptoms - Patient Data Vitals - Most Recent: Last Vital Signs Temp 97.9 F 10/20/18 05:45 Pulse 77 10/20/18 05:45 Resp 16 10/20/18 05:45 BP 117/73 10/20/18 05:45 Pulse Ox 95 10/20/18 05:45 Weight - Most Recent: 266 lb 1.6 oz I&O - Last 24 hours: Intake & Output 10/19/18 10/20/18 10/20/18 22:59 06:59 14:59 Intake Total 1080 800 Output Total 400 Balance 680 800 Lab Results - Last 24 hrs: Laboratory Results - last 24 hr 10/19/18 10/19/18 10/19/18 Range/Units 06:52 06:52 06:52 WBC (4.23-9.07) K/mm3 RBC (4.63-6.08) M/mm3 Hgb (13.7-17.5) gm/L Hct (40.1-51.0) % MCV (79.0-92.2) fl MCH (25.7-32.2) pg MCHC (32.2-35.5) g/dl RDW Std Deviation (35.1-43.9) fL Plt Count (163-337) K/mm3 MPV (9.4-12.3) fl Neut % (Auto) (34.0-67.9) % Lymph % (Auto) (21.8-53.1) % Dent % (Auto) (5.3-12.2) % Eos % (Auto) (0.8-7.0) Baso % (Auto) (0.1-1.2) % Neut # (Auto) (1.78-5.38) K/mm3 Lymph # (Auto) (1.32-3.57) K/mm3 Dent # (Auto) (0.30-0.82) K/mm3 Eos # (Auto) (0.04-0.54) K/mm3 Baso # (Auto) (0.01-0.08) K/mm3 Manual Slide Review Abnormal smear Sodium 140 (136-145) mEq/L Potassium 3.5 (3.5-5.1) mEq/L Chloride 111 H (98-107) mEq/L Carbon Dioxide 20 L (21-32) mEq/L Anion Gap 12.5 (5-15) BUN 7 (7-18) mg/dL Creatinine 0.9 (0.7-1.3) mg/dL Est Cr Clr Drug Dosing 88.38 mL/min Estimated GFR (MDRD) > 60 (>60) mL/min BUN/Creatinine Ratio 7.8 L (14-18) Glucose 134 H (74-106) mg/dL POC Glucose (70-105) mg/dL Lactic Acid 1.4 (0.4-2.0) mmol/L Calcium 8.1 L (8.5-10.1) mg/dL Magnesium 1.7 L (1.8-2.4) mg/dl Ammonia (11-32) umol/L C-Reactive Protein 0.4 (<1.0) mg/dL TSH 3rd Generation 4.848 H (0.358-3.74) uIU/mL 10/19/18 10/19/18 10/19/18 Range/Units 06:52 11:48 16:27 WBC (4.23-9.07) K/mm3 RBC (4.63-6.08) M/mm3 Hgb (13.7-17.5) gm/L Hct (40.1-51.0) % MCV (79.0-92.2) fl MCH (25.7-32.2) pg MCHC (32.2-35.5) g/dl RDW Std Deviation (35.1-43.9) fL Plt Count (163-337) K/mm3 MPV (9.4-12.3) fl Neut % (Auto) (34.0-67.9) % Lymph % (Auto) (21.8-53.1) % Dent % (Auto) (5.3-12.2) % Eos % (Auto) (0.8-7.0) Baso % (Auto) (0.1-1.2) % Neut # (Auto) (1.78-5.38) K/mm3 Lymph # (Auto) (1.32-3.57) K/mm3 Dent # (Auto) (0.30-0.82) K/mm3 Eos # (Auto) (0.04-0.54) K/mm3 Baso # (Auto) (0.01-0.08) K/mm3 Manual Slide Review Sodium (136-145) mEq/L Potassium (3.5-5.1) mEq/L Chloride (98-107) mEq/L Carbon Dioxide (21-32) mEq/L Anion Gap (5-15) BUN (7-18) mg/dL Creatinine (0.7-1.3) mg/dL Est Cr Clr Drug Dosing mL/min Estimated GFR (MDRD) (>60) mL/min BUN/Creatinine Ratio (14-18) Glucose (74-106) mg/dL POC Glucose 206 H 224 H (70-105) mg/dL Lactic Acid (0.4-2.0) mmol/L Calcium (8.5-10.1) mg/dL Magnesium (1.8-2.4) mg/dl Ammonia 73 H (11-32) umol/L C-Reactive Protein (<1.0) mg/dL TSH 3rd Generation (0.358-3.74) uIU/mL 10/19/18 10/20/18 10/20/18 Range/Units 20:48 05:51 06:17 WBC 3.39 L (4.23-9.07) K/mm3 RBC 3.04 L (4.63-6.08) M/mm3 Hgb 10.2 L (13.7-17.5) gm/L Hct 29.1 L (40.1-51.0) % MCV 95.7 H (79.0-92.2) fl MCH 33.6 H (25.7-32.2) pg MCHC 35.1 (32.2-35.5) g/dl RDW Std Deviation 53.2 H (35.1-43.9) fL Plt Count 42 L (163-337) K/mm3 MPV 9.6 (9.4-12.3) fl Neut % (Auto) 54.6 (34.0-67.9) % Lymph % (Auto) 31.3 (21.8-53.1) % Dent % (Auto) 10.9 (5.3-12.2) % Eos % (Auto) 2.9 (0.8-7.0) Baso % (Auto) 0.3 (0.1-1.2) % Neut # (Auto) 1.85 (1.78-5.38) K/mm3 Lymph # (Auto) 1.06 L (1.32-3.57) K/mm3 Dent # (Auto) 0.37 (0.30-0.82) K/mm3 Eos # (Auto) 0.10 (0.04-0.54) K/mm3 Baso # (Auto) 0.01 (0.01-0.08) K/mm3 Manual Slide Review Abnormal smear Sodium (136-145) mEq/L Potassium (3.5-5.1) mEq/L Chloride (98-107) mEq/L Carbon Dioxide (21-32) mEq/L Anion Gap (5-15) BUN (7-18) mg/dL Creatinine (0.7-1.3) mg/dL Est Cr Clr Drug Dosing mL/min Estimated GFR (MDRD) (>60) mL/min BUN/Creatinine Ratio (14-18) Glucose (74-106) mg/dL POC Glucose 207 H 148 H (70-105) mg/dL Lactic Acid (0.4-2.0) mmol/L Calcium (8.5-10.1) mg/dL Magnesium (1.8-2.4) mg/dl Ammonia (11-32) umol/L C-Reactive Protein (<1.0) mg/dL TSH 3rd Generation (0.358-3.74) uIU/mL 10/20/18 10/20/18 Range/Units 06:17 06:17 WBC (4.23-9.07) K/mm3 RBC (4.63-6.08) M/mm3 Hgb (13.7-17.5) gm/L Hct (40.1-51.0) % MCV (79.0-92.2) fl MCH (25.7-32.2) pg MCHC (32.2-35.5) g/dl RDW Std Deviation (35.1-43.9) fL Plt Count (163-337) K/mm3 MPV (9.4-12.3) fl Neut % (Auto) (34.0-67.9) % Lymph % (Auto) (21.8-53.1) % Dent % (Auto) (5.3-12.2) % Eos % (Auto) (0.8-7.0) Baso % (Auto) (0.1-1.2) % Neut # (Auto) (1.78-5.38) K/mm3 Lymph # (Auto) (1.32-3.57) K/mm3 Dent # (Auto) (0.30-0.82) K/mm3 Eos # (Auto) (0.04-0.54) K/mm3 Baso # (Auto) (0.01-0.08) K/mm3 Manual Slide Review Sodium 136 (136-145) mEq/L Potassium 4.2 (3.5-5.1) mEq/L Chloride 108 H (98-107) mEq/L Carbon Dioxide 20 L (21-32) mEq/L Anion Gap 12.2 (5-15) BUN 8 (7-18) mg/dL Creatinine 0.9 (0.7-1.3) mg/dL Est Cr Clr Drug Dosing 88.38 mL/min Estimated GFR (MDRD) > 60 (>60) mL/min BUN/Creatinine Ratio 8.9 L (14-18) Glucose 153 H (74-106) mg/dL POC Glucose (70-105) mg/dL Lactic Acid (0.4-2.0) mmol/L Calcium 8.2 L (8.5-10.1) mg/dL Magnesium 1.5 L (1.8-2.4) mg/dl Ammonia 87 H (11-32) umol/L C-Reactive Protein 0.5 (<1.0) mg/dL TSH 3rd Generation (0.358-3.74) uIU/mL ROBERTO Results - Last 24 hrs: Microbiology 10/17/18 23:40 MRSA Culture - Final Axilla, Unspecified NO MRSA ISOLATED Med Orders - Current: Current Medications Cholecalciferol (Vitamin D3) 2,000 units PO DAILY [facility] Last Admin: 10/19/18 09:21 Dose: 2,000 units Dextrose/Water (Dextrose 50% In Water) 50 ml IVPUSH ASDIRECTED PRN PRN Reason: Hypoglycemia Erythromycin (Jed-Tab) 250 mg PO Q6H [facility] Last Admin: 10/20/18 05:47 Dose: 250 mg Insulin Human Lispro (Humalog) 0 unit SUBCUT QIDACANDBED [facility]; Protocol Last Admin: 10/19/18 21:00 Dose: 4 units Lactulose (Cephulac) 40 gm PO Q8H [facility] Last Admin: 10/20/18 05:48 Dose: 40 gm Magnesium Oxide (Magnesium Oxide) 800 mg PO BID [facility] Last Admin: 10/19/18 20:40 Dose: 800 mg Metformin HCl (Glucophage) 500 mg PO BIDMEALS [facility] Last Admin: 10/20/18 06:46 Dose: 500 mg Pantoprazole Sodium (Protonix) 40 mg PO DAILY [facility] Last Admin: 10/19/18 09:21 Dose: 40 mg Potassium Chloride (Klor-Con M20) 40 meq PO BID [facility] Stop: 10/20/18 09:01 Last Admin: 10/19/18 20:39 Dose: 40 meq Rifaximin (Xifaxan) 550 mg PO BID [facility] Last Admin: 10/19/18 20:40 Dose: 550 mg Spironolactone (Aldactone) 50 mg PO BIDDIURETIC [facility] Last Admin: 10/20/18 05:47 Dose: 50 mg Discontinued Medications Erythromycin (Jed-Tab) 250 mg PO ONETIME ONE Stop: 10/17/18 22:06 Last Admin: 10/17/18 22:20 Dose: 250 mg Sodium Chloride (Normal Saline) 1,000 mls @ 100 mls/hr IV ASDIRECTED [facility] Last Admin: 10/17/18 21:33 Dose: 100 mls/hr Sodium Chloride (Normal Saline) 1,000 mls @ 999 mls/hr IV ONETIME ONE Stop: 10/18/18 01:24 Last Admin: 10/18/18 00:47 Dose: 999 mls/hr Sodium Chloride (Normal Saline) 1,000 mls @ 125 mls/hr IV ASDIRECTED [facility] Stop: 10/18/18 09:29 Last Admin: 10/18/18 01:58 Dose: 125 mls/hr Magnesium Sulfate 4 gm/ Premix 100 mls @ 25 mls/hr IV ONETIME ONE Stop: 10/18/18 13:29 Last Admin: 10/18/18 13:05 Dose: 25 mls/hr Sodium Chloride (Sodium Chloride 0.45%) 1,000 mls @ 999 mls/hr IV ONETIME ONE Stop: 10/18/18 10:30 Last Admin: 10/18/18 11:05 Dose: 999 mls/hr Magnesium Sulfate 4 gm/ Premix 100 mls @ 25 mls/hr IV ONETIME ONE Stop: 10/19/18 08:27 Last Admin: 10/19/18 09:20 Dose: 25 mls/hr Lactulose (Cephulac) 45 gm PO ONETIME ONE Stop: 10/17/18 22:06 Last Admin: 10/17/18 22:18 Dose: 45 gm Lactulose (Cephulac) 40 gm PO ONETIME ONE Stop: 10/18/18 09:01 Last Admin: 10/18/18 11:10 Dose: 40 gm Pantoprazole Sodium (Protonix Iv) 40 mg IVPUSH ONETIME ONE Stop: 10/18/18 00:51 Last Admin: 10/18/18 01:06 Dose: 40 mg - Exam Quality Assessment: Reports: DVT Prophylaxis General: Reports: Alert, Oriented, Cooperative, No Acute Distress HEENT: Reports: Pupils Equal, Pupils Reactive, EOMI, Mucous Membr. Moist/[place] Neck: Reports: Supple, Trachea Midline Lungs: Reports: Clear to Auscultation, Normal Respiratory Effort Cardiovascular: Reports: Regular Rate, Regular Rhythm GI/Abdominal Exam: Normal Bowel Sounds, Soft, Non-Tender, No Abnormal Bruit, Distended (mildly 2/2 cirrhosis) (Male) Exam: Deferred Rectal (Males) Exam: Deferred Back Exam: Reports: Normal Inspection, Full Range of Motion Extremities: Normal Inspection, Normal Range of Motion, Non-Tender, No Pedal Edema, Normal Capillary Refill Skin: Reports: Warm, Dry, Intact Neurological: Reports: No New Focal Deficit Psy/Mental Status: Reports: Alert, Normal Affect, Normal Mood
[2018-10-20] MEDS ORDERED: Magnesium Sulfate/Water 4 GM in Premix Bag 1 BAG IV ONE (07:15)
[2018-10-20] MEDS: Insulin Lispro 100 Units/ML 3 ML Vial SUBCUT SCH ×2 (07:37→11:33)
[2018-10-20] MEDS: Magnesium Oxide 400 MG Tab PO SCH (08:43)
[2018-10-20] MEDS: Potassium Chloride 20 MEQ Tab.ER PO SCH (08:43)
[2018-10-20] MEDS: Rifaximin 550 MG Tab PO SCH (08:44)
[2018-10-20] MEDS: Cholecalciferol (Vitamin D3) 1,000 Unit Tab PO SCH (08:44)
[2018-10-20] MEDS: Pantoprazole 40 MG Tab.CR PO SCH (08:44)
[2018-10-20 12:11] VITALS: BP 114/70
== END 2018-10-20 15:46 | disposition home or self-care (01) | DRG 280 ==
LOC: JD.ED 19:21 → JD.MS 22:49
PROVIDERS: ADMIT Internal Medicine Cardiovascular Disease; ATTEND Internal Medicine Cardiovascular Disease
DX: K70.31 Alcoholic cirrhosis of liver with ascites (principal); K72.90 Hepatic failure, unspecified without coma; E83.51 Hypocalcemia; E83.42 Hypomagnesemia; D61.818 Other pancytopenia; I11.0 Hypertensive heart disease with heart failure; I50.9 Heart failure, unspecified; E11.65 Type 2 diabetes mellitus with hyperglycemia; K21.9 Gastro-esophageal reflux disease without esophagitis; G89.29 Other chronic pain; I25.10 Atherosclerotic heart disease of native coronary artery without angina pectoris; M54.9 Dorsalgia, unspecified; F10.21 Alcohol dependence, in remission; E03.9 Hypothyroidism, unspecified; L30.9 Dermatitis, unspecified; E66.9 Obesity, unspecified; Z68.38 Body mass index [BMI] 38.0-38.9, adult; Z79.84 Long term (current) use of oral hypoglycemic drugs; Z79.899 Other long term (current) drug therapy; Z86.14 Personal history of Methicillin resistant Staphylococcus aureus infection; Z87.891 Personal history of nicotine dependence
CPT/HCPCS: 36415; 80048; 80053; 82140; 82962; 83605; 83690; 83735; 84443; 85007; 85025; 85027; 85610; 86140; 87070; 87641; 87804; 96360; 99285; 99285-25; A9270-GY; C9113; J1815-GY; J3475; J7030; J7040

== ENCOUNTER 2018-11-13 03:40 | Inpatient (IN) | payer BC ==
[2018-11-13] MEDS ORDERED: Sodium Chloride 0.9% 10 ML Syringe FLUSH PRN (04:10)
[2018-11-13] MEDS: Sodium Chloride 0.9% 1,000 ML IV SCH ×3 (04:25→17:58)
[2018-11-13] MEDS ORDERED: Lactulose Soln 10 GM/15 ML 30 ML UD Cup ONE (04:33)
[2018-11-13] MEDS ORDERED: Magnesium Sulfate/Water 4 GM in Premix Bag 1 BAG IV ONE (05:28)
[2018-11-13] MEDS ORDERED: Magnesium Sulfate/Water 100 ML ONE (05:31)
[2018-11-13] MEDS ORDERED: Magnesium Sulfate/Water 2 GM in Premix Bag 1 BAG IV ONE ×4 (05:39)
--- NOTE | 2018-11-13 06:53 | EDM.PDOC ---
ED HPI GENERAL MEDICAL PROBLEM - General Chief Complaint: Neurological Problem Stated Complaint: [facility] Time Seen by Provider: 11/13/18 03:57 Source of Information: Reports: EMS, RN Notes Reviewed - History of Present Illness INITIAL COMMENTS - FREE TEXT/NARRATIVE: 58-year-old male has been [facility] here [facility] for evaluation of altered mental status. History is entirely from EMS. Apparently he had been on a road trip with some friends and upon arriving home is found to be lethargic with altered mental status. Does have history of hepatic encephalopathy. He has had prior similar episodes of altered mental status when he does not take his lactulose and other medications as prescribed. We have no other pertinent information regarding recent sx. He is known to have cirrhosis due to prior alcohol abuse. - Related Data Allergies Allergy/AdvReac Type Severity Reaction Status Date / Time No Known Allergies Allergy Verified 10/18/18 02:50 Home Meds: Home Meds Cholecalciferol (Vitamin D3) [Vitamin D3] 2,000 unit PO DAILY #30 cap 11/16/17 [ Rx] Pantoprazole [ProTONIX] 40 mg PO DAILY #30 tab.cr 11/16/17 [Rx] Magnesium Oxide 800 mg PO BID 01/08/18 [History] metFORMIN [Glucophage XR] 500 mg PO BID 01/08/18 [History] Rifaximin [Xifaxan] 550 mg PO BID #60 tablet 07/31/18 [Rx] Lactulose 30 gm PO Q12HR PRN #1 bottle 10/20/18 [Rx] Lactulose 45 gm PO BID #10 bottle 10/20/18 [Rx] Spironolactone [Aldactone] 12.5 mg PO BID 10/20/18 [History] Past Medical History Cardiovascular History: Reports: Hypertension Other Cardiovascular History: UNABLE TO OBTAIN INFORMATION PT IS NOT VERBALLY RESPONSIVE AT THIS TIME Respiratory History: Reports: SOB Other Respiratory History: UNABLE TO OBTAIN INFORMATION PT IS NOT VERBALLY RESPONSIVE AT THIS TIME Gastrointestinal History: Reports: Cirrhosis, GERD, GI Bleed Other Gastrointestinal History: liver failure;stomach bleed Genitourinary History: Reports: Other (See Below) Other Genitourinary History: UNABLE TO OBTAIN INFORMATION PT IS NOT VERBALLY RESPONSIVE AT THIS TIME Musculoskeletal History: Reports: Back Pain, Chronic Other Musculoskeletal History: UNABLE TO OBTAIN INFORMATION PT IS NOT VERBALLY RESPONSIVE AT THIS TIME Neurological History: Reports: Other (See Below) Other Neuro History: hepatic encephalopathy Psychiatric History: Reports: Addiction Other Psychiatric History: Alcoholism-recovered addict Endocrine/Metabolic History: Reports: Diabetes, Type II, Hypothyroidism, Obesity /BMI 30+ Hematologic History: Reports: Anemia, Blood Transfusion(s) Other Hematologic History: UNABLE TO OBTAIN INFORMATION PT IS NOT VERBALLY RESPONSIVE AT THIS TIME Other Oncologic History: UNABLE TO OBTAIN INFORMATION PT IS NOT VERBALLY RESPONSIVE AT THIS TIME Dermatologic History: Reports: Cellulitis, Eczema Other Dermatologic History: 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 History of cellulitis to both legs. - Infectious Disease History Infectious Disease History: Reports: Hepatitis non A,B,C, Measles, MRSA Other Infectious Disease History: patient cleared for MRSA 10/20/18 - Past Surgical History Head Surgeries/Procedures: Reports: None Other HEENT Surgeries/Procedures: UNABLE TO OBTAIN INFORMATION PT IS NOT VERBALLY RESPONSIVE AT THIS TIME GI Surgical History: Reports: Other (See Below) Social & Family History - Family History Family Medical History: Noncontributory - Tobacco Use Smoking Status *Q: Unknown Ever Smoked - Caffeine Use Caffeine Use: Reports: Coffee, Soda Other Caffeine Use: unable to obtain Caffeine Use Comment: unable to obtain, patient unresponsive - Living Situation & Occupation Living situation: Reports: , with Family Occupation: Employed ED ROS GENERAL - Review of Systems Review Of Systems: Unable To Obtain - Physical Exam Exam: See Below General Appearance: Other (basically unresponsive verbally, he did repond no to a couple of questions but otherwise nonverbal) Eye Exam: Bilateral Eye: PERRL, Other (There is mild scleral icterus) Throat/Mouth: Normal Inspection, Other (Oral mucosa mildly dry) Head Exam: Atraumatic Neck: Supple Respiratory/Chest: No Respiratory Distress, Lungs Clear, Normal Breath Sounds Cardiovascular: Regular Rate, Rhythm GI/Abdominal: Soft, Non-Tender Neuro Exam (Abbreviated): Unresponsive Extremities: Pedal Edema (Trace bilateral). No: Increased Warmth, Redness Skin Exam: Warm, Dry, Normal Color Course - Vital Signs Last Recorded V/S: Last Vital Signs Temp 98.5 F 11/13/18 03:59 Pulse 91 11/13/18 03:59 Resp 18 11/13/18 03:59 BP 111/81 11/13/18 03:59 Pulse Ox 96 11/13/18 03:59 - Orders/Labs/Meds Orders: Active Orders 24 hr Category Date Time Status Peripheral IV Care [RC] . DIRECTED Care 11/13/18 04:10 Active Magnesium Sulfate/Water [Magnesium Sulfate 2 GM in Med 11/13/18 05:39 Active Water 50 ML] 2 gm Premix Bag 1 bag IV ONETIME Magnesium Sulfate/Water [Magnesium Sulfate 2 GM in Med 11/13/18 05:39 Active Water 50 ML] 2 gm Premix Bag 1 bag IV ONETIME Sodium Chloride 0.9% [Normal Saline] 1,000 ml Med 11/13/18 04:15 Active IV ASDIRECTED Sodium Chloride 0.9% [Saline Flush] Med 11/13/18 04:10 Active 10 ml FLUSH ASDIRECTED PRN Peripheral IV Insertion Adult [OM.PC] Stat Oth 11/13/18 04:09 Ordered Medication Orders Sodium Chloride (Normal Saline) 1,000 mls @ 150 mls/hr IV ASDIRECTED DHIRAJ Last Admin: 11/13/18 04:25 Dose: 150 mls/hr Magnesium Sulfate 2 gm/ Premix 50 mls @ 25 mls/hr IV ONETIME ONE Stop: 11/13/18 07:38 Last Admin: 11/13/18 05:40 Dose: 25 mls/hr Magnesium Sulfate 2 gm/ Premix 50 mls @ 25 mls/hr IV ONETIME ONE Stop: 11/13/18 07:38 Sodium Chloride (Saline Flush) 10 ml FLUSH ASDIRECTED PRN PRN Reason: Keep Vein Open Last Admin: 11/13/18 04:25 Dose: 10 ml Labs: Laboratory Tests 11/13/18 11/13/18 11/13/18 Range/Units 04:00 04:00 04:00 WBC 2.74 L (4.23-9.07) K/mm3 RBC 3.06 L (4.63-6.08) M/mm3 Hgb 10.3 L (13.7-17.5) gm/L Hct 29.3 L (40.1-51.0) % MCV 95.8 H (79.0-92.2) fl MCH 33.7 H (25.7-32.2) pg MCHC 35.2 (32.2-35.5) g/dl RDW Std Deviation 50.3 H (35.1-43.9) fL Plt Count 53 L (163-337) K/mm3 MPV 10.1 (9.4-12.3) fl Neut % (Auto) 63.1 (34.0-67.9) % Lymph % (Auto) 28.8 (21.8-53.1) % Posey % (Auto) 6.6 (5.3-12.2) % Eos % (Auto) 1.1 (0.8-7.0) Baso % (Auto) 0.4 (0.1-1.2) % Neut # (Auto) 1.73 L (1.78-5.38) K/mm3 Lymph # (Auto) 0.79 L (1.32-3.57) K/mm3 Posey # (Auto) 0.18 L (0.30-0.82) K/mm3 Eos # (Auto) 0.03 L (0.04-0.54) K/mm3 Baso # (Auto) 0.01 (0.01-0.08) K/mm3 Manual Slide Review Abnormal smear Sodium 137 (136-145) mEq/L Potassium 4.5 (3.5-5.1) mEq/L Chloride 108 H (98-107) mEq/L Carbon Dioxide 20 L (21-32) mEq/L Anion Gap 13.5 (5-15) BUN 10 (7-18) mg/dL Creatinine 0.9 (0.7-1.3) mg/dL Est Cr Clr Drug Dosing TNP Estimated GFR (MDRD) > 60 (>60) mL/min BUN/Creatinine Ratio 11.1 L (14-18) Glucose 309 H (74-106) mg/dL POC Glucose (70-105) mg/dL Calcium 8.6 (8.5-10.1) mg/dL Magnesium 1.5 L (1.8-2.4) mg/dl Total Bilirubin 2.0 H (0.2-1.0) mg/dL AST 28 (15-37) U/L ALT 28 (16-63) U/L Alkaline Phosphatase 93 (46-116) U/L Ammonia (11-32) umol/L Total Protein 6.7 (6.4-8.2) g/dl Albumin 1.9 L (3.4-5.0) g/dl Globulin 4.8 gm/dL Albumin/Globulin Ratio 0.4 L (1-2) Ethyl Alcohol 0.00 (0.00) gm% 11/13/18 11/13/18 Range/Units 04:08 04:31 WBC (4.23-9.07) K/mm3 RBC (4.63-6.08) M/mm3 Hgb (13.7-17.5) gm/L Hct (40.1-51.0) % MCV (79.0-92.2) fl MCH (25.7-32.2) pg MCHC (32.2-35.5) g/dl RDW Std Deviation (35.1-43.9) fL Plt Count (163-337) K/mm3 MPV (9.4-12.3) fl Neut % (Auto) (34.0-67.9) % Lymph % (Auto) (21.8-53.1) % Posey % (Auto) (5.3-12.2) % Eos % (Auto) (0.8-7.0) Baso % (Auto) (0.1-1.2) % Neut # (Auto) (1.78-5.38) K/mm3 Lymph # (Auto) (1.32-3.57) K/mm3 Posey # (Auto) (0.30-0.82) K/mm3 Eos # (Auto) (0.04-0.54) K/mm3 Baso # (Auto) (0.01-0.08) K/mm3 Manual Slide Review Sodium (136-145) mEq/L Potassium (3.5-5.1) mEq/L Chloride (98-107) mEq/L Carbon Dioxide (21-32) mEq/L Anion Gap (5-15) BUN (7-18) mg/dL Creatinine (0.7-1.3) mg/dL Est Cr Clr Drug Dosing Estimated GFR (MDRD) (>60) mL/min BUN/Creatinine Ratio (14-18) Glucose (74-106) mg/dL POC Glucose 275 H (70-105) mg/dL Calcium (8.5-10.1) mg/dL Magnesium (1.8-2.4) mg/dl Total Bilirubin (0.2-1.0) mg/dL AST (15-37) U/L ALT (16-63) U/L Alkaline Phosphatase (46-116) U/L Ammonia 162 H (11-32) umol/L Total Protein (6.4-8.2) g/dl Albumin (3.4-5.0) g/dl Globulin gm/dL Albumin/Globulin Ratio (1-2) Ethyl Alcohol (0.00) gm% Meds: Medications Generic Name Dose Route Start Last Admin Trade Name Freq PRN Reason Stop Dose Admin Sodium Chloride 1,000 mls @ 150 mls/hr 11/13/18 04:15 11/13/18 04:25 Normal Saline IV 150 mls/hr ASDIRECTED DHIRAJ Administration Magnesium Sulfate 2 gm/ Premix 50 mls @ 25 mls/hr 11/13/18 05:39 11/13/18 05: 40 IV 11/13/18 07:38 25 mls/hr ONETIME ONE Administration Magnesium Sulfate 2 gm/ Premix 50 mls @ 25 mls/hr 11/13/18 05:39 IV 11/13/18 07:38 ONETIME ONE Sodium Chloride 10 ml 11/13/18 04:10 11/13/18 04:25 Saline Flush FLUSH 10 ml ASDIRECTED PRN Administration Keep Vein Open Discontinued Medications Generic Name Dose Route Start Last Admin Trade Name Freq PRN Reason Stop Dose Admin Magnesium Sulfate 4 gm/ Premix 50 mls @ 12.5 mls/hr 11/13/18 05:28 11/13/18 05:42 IV 11/13/18 09:27 Not Given ONETIME ONE Magnesium Sulfate Confirm 11/13/18 05:31 11/13/18 05:42 Magnesium Sulfate 2 Gm In Water 50 Ml Administered 11/13/18 05:32 Not Given Dose 100 mls @ as directed .ROUTE .STK-MED ONE Lactulose 40 gm 11/13/18 04:33 11/13/18 04:50 Cephulac .XX 11/13/18 04:34 40 gm ONETIME ONE Administration - Re-Assessments/Exams Free Text/Narrative Re-Assessment/Exam: 11/13/18 05:54 Serum ammonia is quite elevated at 162. Magnesium low at 1.5. In 2.0. Chemistries otherwise relatively okay. Have been running IV fluid at 150 per hour. He is sleeping soundly, not safe to take oral lactulose at this time. Have given 40 g rectal. Also infusing 4 g mag sulfate over 2 hours. He will be admitted for further treatment. His history in the past has been that he has responded fairly quickly to oral lactulose. Departure - Departure Time of Disposition: 07:06 Disposition: Home, Self-Care 01 Clinical Impression: Hepatic encephalopathy, Hypomagnesemia Altered mental status Qualifiers: Altered mental status type: unspecified Qualified Code(s): R41.82 - Altered mental status, unspecified - Discharge Information Referrals: PCP,Not In Area [Primary Care Provider] - Forms: ED Department Discharge - My Orders Last 24 Hours: My Active Orders 11/13/18 04:09 Peripheral IV Insertion Adult [OM.PC] Stat 11/13/18 04:10 Peripheral IV Care [RC] . DIRECTED Sodium Chloride 0.9% [Saline Flush] 10 ml FLUSH ASDIRECTED PRN 11/13/18 04:15 Sodium Chloride 0.9% [Normal Saline] 1,000 ml IV ASDIRECTED 11/13/18 05:39 Magnesium Sulfate/Water [Magnesium Sulfate 2 GM in Water 50 ML] 2 gm Premix Bag 1 bag IV ONETIME Magnesium Sulfate/Water [Magnesium Sulfate 2 GM in Water 50 ML] 2 gm Premix Bag 1 bag IV ONETIME - Assessment/Plan Last 24 Hours: My Active Orders 11/13/18 04:09 Peripheral IV Insertion Adult [OM.PC] Stat 11/13/18 04:10 Peripheral IV Care [RC] . DIRECTED Sodium Chloride 0.9% [Saline Flush] 10 ml FLUSH ASDIRECTED PRN 11/13/18 04:15 Sodium Chloride 0.9% [Normal Saline] 1,000 ml IV ASDIRECTED 11/13/18 05:39 Magnesium Sulfate/Water [Magnesium Sulfate 2 GM in Water 50 ML] 2 gm Premix Bag 1 bag IV ONETIME Magnesium Sulfate/Water [Magnesium Sulfate 2 GM in Water 50 ML] 2 gm Premix Bag 1 bag IV ONETIME
--- NOTE | 2018-11-13 08:03 | CT ---
Head CT Technique: Multiple axial sections through the brain were obtained. Intravenous contrast was not utilized. Comparison: Prior head CT study of 05/31/17. Findings: Equivocal diminished density is noted within portions of the cerebellum, worse on the left side. Very minimal diminished density is noted within portions of the periventricular white matter most likely due to small vessel ischemic demyelination change. No other abnormal parenchymal densities are seen. No evidence of intracranial hemorrhage. No midline shift or mass effect is seen. Bone window settings were reviewed which show the visualized sinuses to appear clear. No acute calvarial abnormality is seen. Impression: 1. Mild small vessel ischemic demyelination change. 2. Questionable diminished density within the cerebellum on both sides, worse on the left side possibly due to additional small vessel ischemic demyelination change but difficult to completely exclude early ischemic infarct. MRI study with diffusion would be helpful to confirm or rule out this possibility. 3. No acute intracranial hemorrhage or other acute abnormality is seen. Diagnostic code #3
--- NOTE | 2018-11-13 08:47 | PCM.HP ---
H&P History of Present Illness - General Date of Service: 11/13/18 Admit Problem/Dx: Admission Diagnosis/Problem Admission Diagnosis/Problem Hepatic encephalopathy Source of Information: Old Records, Provider, RN, RN Notes Reviewed History Limitations: Reports: Altered Mental Status - History of Present Illness Initial Comments - Free Text/Narative: Kaden Griffin is a 58 yo male who is very well-known to the service, who presents to our ED via [facility] for altered mental status. He is completely altered and unable to answer questions so history is entirely from EMS. He is barely on a very long road trip with friends will return home was found to be lethargic with altered mental status. Long history of hepatic encephalopathy with multiple prior episodes. This generally occurs after he is not taking his home medications as prescribed. He is on 550 mg by mouth twice a day Xifaxan along with 45 g by mouth twice a day lactulose. He also has 30 g by mouth every 12 hours lactulose as needed if he is noted to have worsening mental status or believed to have increased ammonia. He is known to have cirrhosis due to prior alcohol abuse. In the ED he was not verbally responsive. Temp was 90.5. Pulse 91. Respirations 18. Blood pressure 111/81. Pulse ox 96% on room air. Labs are obtained: The CBC is 2.74. Hemoglobin 10.3. Hematocrit 29.3. He is macrocytic. Pulses are low at 53,000. Neutrophils are good at 63.1%. Sodium is 137. Potassium 4.5. Chloride 108. Lovenox at 20. Anion gap is 13.5. BUN is 10. Creatinine 0.9. EGFR is given 60. Glucose high at 309. Calcium 8.6. Magnesium is low at 1.5. Bilirubin is elevated at 2.0. AST is 28, ALT 28, alkaline phosphatase 93. Protein is 6.7. Albumin is low at 1.9. Alcohol is 0.00. Ammonia is very high at 162. He's given 4 g of magnesium and started on 150 mils an hour of MS. He is also given 4 mg of lactulose rectally. He has been noted to respond quickly to lactulose on prior visits. Head CT scan was obtained and interpreted by Dr. Mendez as "1. Mild small vessel ischemic demyelination change. 2. Questionable diminished density within the cerebellum on both sides, worse on the left side possibly due to additional small vessel ischemic demyelination change but difficult to completely exclude early ischemic infarct. MRI study with diffusion would be helpful to confirm or rule out this possibility. 3. No acute intracranial hemorrhage or other acute abdomen mildly seen." He carries a history of: GERD, GI bleeds, liver failure, ulcers, chronic back pain, alcohol addiction, hepatic encephalopathy, type II DM, hypothyroidism, anemia, eczema, cellulitis, Advanced Liver Disease from Long Hx/o ETOH Abuse, Hx /o Esophageal Varices S/p TIPS, Pancytopenia 2/2 Liver Disease, Hypoalbuminemia 2/2 Liver Disease, Hyperbilubinemia, 2/2 Advanced Liver Disease. He is a full code. His PCPs with [facility]. - Related Data Allergies/Adverse Reactions: Allergies Allergy/AdvReac Type Severity Reaction Status Date / Time No Known Allergies Allergy Verified 10/18/18 02:50 Home Medications: Home Meds Cholecalciferol (Vitamin D3) [Vitamin D3] 2,000 unit PO DAILY #30 cap 11/16/17 [ Rx] Pantoprazole [ProTONIX] 40 mg PO DAILY #30 tab.cr 11/16/17 [Rx] Magnesium Oxide 800 mg PO BID 01/08/18 [History] metFORMIN [Glucophage XR] 500 mg PO BID 01/08/18 [History] Rifaximin [Xifaxan] 550 mg PO BID #60 tablet 07/31/18 [Rx] Lactulose 30 gm PO Q12HR PRN #1 bottle 10/20/18 [Rx] Lactulose 45 gm PO BID #10 bottle 10/20/18 [Rx] Spironolactone [Aldactone] 12.5 mg PO BID 10/20/18 [History] Past Medical History Cardiovascular History: Reports: Hypertension Other Cardiovascular History: UNABLE TO OBTAIN INFORMATION PT IS NOT VERBALLY RESPONSIVE AT THIS TIME Respiratory History: Reports: SOB Other Respiratory History: UNABLE TO OBTAIN INFORMATION PT IS NOT VERBALLY RESPONSIVE AT THIS TIME Gastrointestinal History: Reports: Cirrhosis, GERD, GI Bleed Other Gastrointestinal History: liver failure;stomach bleed Genitourinary History: Reports: Other (See Below) Other Genitourinary History: UNABLE TO OBTAIN INFORMATION PT IS NOT VERBALLY RESPONSIVE AT THIS TIME Musculoskeletal History: Reports: Back Pain, Chronic Other Musculoskeletal History: UNABLE TO OBTAIN INFORMATION PT IS NOT VERBALLY RESPONSIVE AT THIS TIME Neurological History: Reports: Other (See Below) Other Neuro History: hepatic encephalopathy Psychiatric History: Reports: Addiction Other Psychiatric History: Alcoholism-recovered addict Endocrine/Metabolic History: Reports: Diabetes, Type II, Hypothyroidism, Obesity /BMI 30+ Hematologic History: Reports: Anemia, Blood Transfusion(s) Other Hematologic History: UNABLE TO OBTAIN INFORMATION PT IS NOT VERBALLY RESPONSIVE AT THIS TIME Other Oncologic History: UNABLE TO OBTAIN INFORMATION PT IS NOT VERBALLY RESPONSIVE AT THIS TIME Dermatologic History: Reports: Cellulitis, Eczema Other Dermatologic History: 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 History of cellulitis to both legs. - Infectious Disease History Infectious Disease History: Reports: Hepatitis non A,B,C, Measles, MRSA Other Infectious Disease History: patient cleared for MRSA 10/20/18 - Past Surgical History Head Surgeries/Procedures: Reports: None Other HEENT Surgeries/Procedures: UNABLE TO OBTAIN INFORMATION PT IS NOT VERBALLY RESPONSIVE AT THIS TIME GI Surgical History: Reports: Other (See Below) Social & Family History - Family History Family Medical History: Noncontributory - Tobacco Use Smoking Status *Q: Unknown Ever Smoked - Caffeine Use Caffeine Use: Reports: Coffee, Soda Other Caffeine Use: unable to obtain Caffeine Use Comment: unable to obtain, patient unresponsive - Living Situation & Occupation Living situation: Reports: , with Family Occupation: Employed H&P Review of Systems - Review of Systems: Review Of Systems: See Below General: Reports: Weakness (reports recent weakness however states he is better now). Denies: Fever, Chills, Malaise, Fatigue HEENT: Reports: No Symptoms. Denies: Headaches, Sore Throat Pulmonary: Reports: No Symptoms. Denies: Shortness of Breath, Wheezing, Pleuritic Chest Pain, Cough, Sputum Cardiovascular: Reports: No Symptoms, Edema (mild ). Denies: Chest Pain, Palpitations, Dyspnea on Exertion Gastrointestinal: Reports: No Symptoms. Denies: Abdominal Pain, Constipation, Diarrhea, Nausea, Vomiting Genitourinary: Denies: Pain Musculoskeletal: Reports: No Symptoms Skin: Denies: Cyanosis Psychiatric: Reports: Confusion (very mild. Slow to respond to some questions but does eventually respond.). Denies: Anxiety, Agitation Neurological: Reports: No Symptoms Hematologic/Lymphatic: Reports: No Symptoms Immunologic: Reports: No Symptoms Exam - Exam Exam: See Below - Vital Signs Vital Signs: Last Vital Signs Temp 98.5 F 11/13/18 03:59 Pulse 91 11/13/18 03:59 Resp 18 11/13/18 03:59 BP 111/81 11/13/18 03:59 Pulse Ox 96 11/13/18 03:59 - Exam Quality Assessment: DVT Prophylaxis General: Alert, Cooperative. No: Oriented (mostly however somewhat confused ), Mild Distress HEENT: EACs Clear, EOMI, Hearing Intact, Mucosa Moist & [place], Nares Patent, Normal Nasal Septum, Posterior Pharynx Clear, Scleral Icterus (chronic ), PERRLA Neck: Supple, Trachea Midline Lungs: Clear to Auscultation, Normal Respiratory Effort Cardiovascular: Regular Rate, Regular Rhythm GI/Abdominal Exam: Normal Bowel Sounds, Soft, Non-Tender, No Organomegaly, No Distention (Male) Exam: Deferred Rectal (Males) Exam: Deferred Back Exam: Normal Inspection, Full Range of Motion Extremities: Normal Inspection, Normal Range of Motion, Non-Tender, Normal Capillary Refill, Pedal Edema (trace ) Peripheral Pulses: 2+: Radial (L), Radial (R), Dorsalis Pedis (L), Dorsalis Pedis (R) Skin: Warm, Dry, Intact Neurological: Cranial Nerves Intact (grossly ) Neuro Extensive - Mental Status: Alert, Normal Mood/Affect. No: Oriented x3 ( Somewhat confused but alert to person and place) - Patient Data Lab Results Last 24 hrs: Laboratory Results - last 24 hr 11/13/18 11/13/18 11/13/18 Range/Units 04:00 04:00 04:00 WBC 2.74 L (4.23-9.07) K/mm3 RBC 3.06 L (4.63-6.08) M/mm3 Hgb 10.3 L (13.7-17.5) gm/L Hct 29.3 L (40.1-51.0) % MCV 95.8 H (79.0-92.2) fl MCH 33.7 H (25.7-32.2) pg MCHC 35.2 (32.2-35.5) g/dl RDW Std Deviation 50.3 H (35.1-43.9) fL Plt Count 53 L (163-337) K/mm3 MPV 10.1 (9.4-12.3) fl Neut % (Auto) 63.1 (34.0-67.9) % Lymph % (Auto) 28.8 (21.8-53.1) % [place] % (Auto) 6.6 (5.3-12.2) % Eos % (Auto) 1.1 (0.8-7.0) Baso % (Auto) 0.4 (0.1-1.2) % Neut # (Auto) 1.73 L (1.78-5.38) K/mm3 Lymph # (Auto) 0.79 L (1.32-3.57) K/mm3 [place] # (Auto) 0.18 L (0.30-0.82) K/mm3 Eos # (Auto) 0.03 L (0.04-0.54) K/mm3 Baso # (Auto) 0.01 (0.01-0.08) K/mm3 Manual Slide Review Abnormal smear Sodium 137 (136-145) mEq/L Potassium 4.5 (3.5-5.1) mEq/L Chloride 108 H (98-107) mEq/L Carbon Dioxide 20 L (21-32) mEq/L Anion Gap 13.5 (5-15) BUN 10 (7-18) mg/dL Creatinine 0.9 (0.7-1.3) mg/dL Est Cr Clr Drug Dosing TNP Estimated GFR (MDRD) > 60 (>60) mL/min BUN/Creatinine Ratio 11.1 L (14-18) Glucose 309 H (74-106) mg/dL POC Glucose (70-105) mg/dL Calcium 8.6 (8.5-10.1) mg/dL Magnesium 1.5 L (1.8-2.4) mg/dl Total Bilirubin 2.0 H (0.2-1.0) mg/dL AST 28 (15-37) U/L ALT 28 (16-63) U/L Alkaline Phosphatase 93 (46-116) U/L Ammonia (11-32) umol/L Total Protein 6.7 (6.4-8.2) g/dl Albumin 1.9 L (3.4-5.0) g/dl Globulin 4.8 gm/dL Albumin/Globulin Ratio 0.4 L (1-2) Ethyl Alcohol 0.00 (0.00) gm% 04/04/19 04/04/19 Range/Units 04:08 04:31 WBC (4.23-9.07) K/mm3 RBC (4.63-6.08) M/mm3 Hgb (13.7-17.5) gm/L Hct (40.1-51.0) % MCV (79.0-92.2) fl MCH (25.7-32.2) pg MCHC (32.2-35.5) g/dl RDW Std Deviation (35.1-43.9) fL Plt Count (163-337) K/mm3 MPV (9.4-12.3) fl Neut % (Auto) (34.0-67.9) % Lymph % (Auto) (21.8-53.1) % [place] % (Auto) (5.3-12.2) % Eos % (Auto) (0.8-7.0) Baso % (Auto) (0.1-1.2) % Neut # (Auto) (1.78-5.38) K/mm3 Lymph # (Auto) (1.32-3.57) K/mm3 [place] # (Auto) (0.30-0.82) K/mm3 Eos # (Auto) (0.04-0.54) K/mm3 Baso # (Auto) (0.01-0.08) K/mm3 Manual Slide Review Sodium (136-145) mEq/L Potassium (3.5-5.1) mEq/L Chloride (98-107) mEq/L Carbon Dioxide (21-32) mEq/L Anion Gap (5-15) BUN (7-18) mg/dL Creatinine (0.7-1.3) mg/dL Est Cr Clr Drug Dosing Estimated GFR (MDRD) (>60) mL/min BUN/Creatinine Ratio (14-18) Glucose (74-106) mg/dL POC Glucose 275 H (70-105) mg/dL Calcium (8.5-10.1) mg/dL Magnesium (1.8-2.4) mg/dl Total Bilirubin (0.2-1.0) mg/dL AST (15-37) U/L ALT (16-63) U/L Alkaline Phosphatase (46-116) U/L Ammonia 162 H (11-32) umol/L Total Protein (6.4-8.2) g/dl Albumin (3.4-5.0) g/dl Globulin gm/dL Albumin/Globulin Ratio (1-2) Ethyl Alcohol (0.00) gm% Result Diagrams: 11/13/18 04:00 11/13/18 04:00 - Problem List (1) Altered mental status SNOMED Code(s): 625652192 ICD Code: R41.82 - ALTERED MENTAL STATUS, UNSPECIFIED Status: Acute Priority: High Current Visit: Yes Qualifiers: Altered mental status type: unspecified Qualified Code(s): R41.82 - Altered mental status, unspecified (2) Hepatic encephalopathy SNOMED Code(s): 75900769 ICD Code: K72.90 - HEPATIC FAILURE, UNSPECIFIED WITHOUT COMA Status: Acute Priority: High Current Visit: Yes (3) Hypomagnesemia SNOMED Code(s): 710702863 ICD Code: E83.42 - HYPOMAGNESEMIA Status: Acute Priority: High Current Visit: Yes (4) Hyperglycemia due to type 2 diabetes mellitus SNOMED Code(s): 221643336767379, 548716325799572 ICD Code: E11.65 - TYPE 2 DIABETES MELLITUS WITH HYPERGLYCEMIA Status: Acute Priority: High Current Visit: Yes Qualifiers: Diabetes mellitus shove up insulin use: without shove up use Qualified Code(s): E11.65 - Type 2 diabetes mellitus with hyperglycemia Problem List Initiated/Reviewed/Updated: Yes Orders Last 24hrs: Active Orders 24 hr Category Date Time Status Patient Status [ADT] Routine ADT 11/13/18 08:30 Active Peripheral IV Care [RC] . DIRECTED Care 11/13/18 04:10 Active Sodium Chloride 0.9% [Normal Saline] 1,000 ml Med 11/13/18 04:15 Active IV ASDIRECTED Sodium Chloride 0.9% [Saline Flush] Med 11/13/18 04:10 Active 10 ml FLUSH ASDIRECTED PRN Peripheral IV Insertion Adult [OM.PC] Stat Oth 11/13/18 04:09 Ordered Medication Orders Sodium Chloride (Normal Saline) 1,000 mls @ 150 mls/hr IV ASDIRECTED DHIRAJ Last Admin: 11/13/18 04:25 Dose: 150 mls/hr Sodium Chloride (Saline Flush) 10 ml FLUSH ASDIRECTED PRN PRN Reason: Keep Vein Open Last Admin: 11/13/18 04:25 Dose: 10 ml Assessment/Plan Comment:: Assessment/Plan: Acute: Hepatic Encephalopathy - Acute on Chronic - 2/2 Advanced Liver Disease and Medical Non-compliance - Head CT scan as below; MRI as below - Ammonia level is 162 - Unsure if he is taking his home meds; reportedly just returned home from a long trip - Resume Home Meds as ordered - Rectal lactulose given in ED and on floor -> advanced to PO - Monitor Ammonia level - Avoid NSAIDs - MVI, Folic and Thiamine Supplement when able to swallow Hypomagnesemia - Magnesium 1.5 in ED - 2/2 inadequate intake - Supplemented in ED - Subsequent level for pharmacy to monitor and replete Hyperglycemia in Type II DM -Glucose 309 in ED -Hold home PO meds until mental status improves -> resume as ordered -Accu-check QID AC and Bedtime with ISS coverage -A1C pending Inactive: Abnormal head CT -CT obtained in ED 11/13/18 * 1. Mild small vessel ischemic demyelination change. * 2. Questionable diminished density within the cerebellum on both sides, worse on the left side possibly due to additional small vessel ischemic demyelination change but difficult to completely exclude early ischemic infarct. MRI study with diffusion would be helpful to confirm or rule out this possibility. * 3. No acute intracranial hemorrhage or other abnormality is seen. -MRI obtained 11/13/18: * 1. Mild small vessel ischemic demyelination change within the subcortical white matter. * 2. No abnormal signal is seen within the cerebellar hemispheres and prior CT finding most likely represents B Scott artifact. * 3. No acute diffusion abnormalities are seen Chronic: Advanced Liver Disease from Long Hx/o ETOH Abuse Hx/o Esophageal Varices S/p TIPS Pancytopenia 2/2 Liver Disease, Platelet and Hgb at baseline Hypoalbuminemia, 2/2 Liver Disease Albumin level at baseline DM2 Hyperbilubinemia, 2/2 Advanced Liver Disease Obesity GERD Chronic back pain GI bleeds hepatic encephalopathy hypothyroidism eczema Plan: Admit to Inpatient with Tele Routine AM labs Resume home meds when alert Dietary consult for weight and protein wasting management Aspiration and fall precautions DVT PPx: SCDs (Anticoags contraindicated due to low platelet levels) Hold metformin until more alert -> resume PT/OT consult [employer] worker/CM for discharge planning Code status: Full code; PCP: [facility]
[2018-11-13] MEDS ORDERED: Acetaminophen 650 MG Supp RECTAL PRN (09:17)
[2018-11-13] MEDS ORDERED: hydrALAZINE 20 MG/ML SDV IVPUSH PRN (09:21)
[2018-11-13] MEDS ORDERED: Metoprolol Tartrate 5 MG/5 ML SDV IVPUSH PRN (09:21)
[2018-11-13] MEDS ORDERED: 50% Dextrose in Water 50 ML SDV IV PRN (09:33)
[2018-11-13] MEDS: Lactulose Soln 10 GM/15 ML 30 ML UD Cup SCH ×2 (11:35→11:55)
--- NOTE | 2018-11-13 11:41 | MR ---
MRI brain Technique: T1 sagittal; T2 gradient echo, T2 FLAIR, T1 and diffusion axial; T2 gradient echo and T1-weighted sagittal images were obtained. Comparison: Prior head CT study performed earlier on the same day (7:37 AM). Findings: No abnormal signal is seen within the cerebellum as suggested on head CT exam. Findings on head CT study most likely due to beam hardening artifact. Multiple small areas of increased signal are seen within the subcortical white matter most likely representing small vessel ischemic demyelination change. Ventricles along with basal cisterns and sulci over the convexities are mildly prominent. No acute diffusion abnormalities are seen. No midline shift or mass effect is seen. Normal signal void is seen within the major cerebral arteries within the skull base. Impression: 1. Mild small vessel ischemic demyelination change within the subcortical white matter. 2. No abnormal signal is seen within the cerebellar hemispheres and prior CT finding most likely represents beam hardening artifact. 3. No acute diffusion abnormalities are seen. Diagnostic code #2
[2018-11-13] MEDS: Insulin Lispro 100 Units/ML 3 ML Vial SUBCUT SCH ×3 (11:42→21:26)
[2018-11-13] MEDS: Rifaximin 550 MG Tab PO SCH ×2 (11:43→21:28)
[2018-11-13 13:40] LABS: HEMOGLOBIN A1C 6.3 % (4.50-6.20)
[2018-11-13] MEDS: Lactulose Soln 10 GM/15 ML 30 ML UD Cup PO SCH ×2 (14:13→21:30)
[2018-11-13] MEDS: metFORMIN 500 MG Tab PO SCH (16:43)
[2018-11-13] MEDS ORDERED: Magnesium Oxide 400 MG Tab PO SCH (21:00)
[2018-11-13] MEDS: Spironolactone 25 MG Tab PO SCH (21:27)
[2018-11-14] MEDS: Sodium Chloride 0.9% 1,000 ML IV SCH (01:02)
[2018-11-14] MEDS: metFORMIN 500 MG Tab PO SCH (06:29)
--- NOTE | 2018-11-14 07:26 | PCM.DCSUM1 ---
Discharge Summary - Hospital Course HPI Initial Comments: Kaden Griffin is a 58 yo male who is very well-known to the service, who presents to our ED via [facility] for altered mental status. He is completely altered and unable to answer questions so history is entirely from EMS. He is barely on a very long road trip with friends will return home was found to be lethargic with altered mental status. Long history of hepatic encephalopathy with multiple prior episodes. This generally occurs after he is not taking his home medications as prescribed. He is on 550 mg by mouth twice a day Xifaxan along with 45 g by mouth twice a day lactulose. He also has 30 g by mouth every 12 hours lactulose as needed if he is noted to have worsening mental status or believed to have increased ammonia. He is known to have cirrhosis due to prior alcohol abuse. In the ED he was not verbally responsive. Temp was 90.5. Pulse 91. Respirations 18. Blood pressure 111/81. Pulse ox 96% on room air. Labs are obtained: The CBC is 2.74. Hemoglobin 10.3. Hematocrit 29.3. He is macrocytic. Pulses are low at 53,000. Neutrophils are good at 63.1%. Sodium is 137. Potassium 4.5. Chloride 108. Lovenox at 20. Anion gap is 13.5. BUN is 10. Creatinine 0.9. EGFR is given 60. Glucose high at 309. Calcium 8.6. Magnesium is low at 1.5. Bilirubin is elevated at 2.0. AST is 28, ALT 28, alkaline phosphatase 93. Protein is 6.7. Albumin is low at 1.9. Alcohol is 0.00. Ammonia is very high at 162. He's given 4 g of magnesium and started on 150 mils an hour of MS. He is also given 4 mg of lactulose rectally. He has been noted to respond quickly to lactulose on prior visits. Head CT scan was obtained and interpreted by Dr. Mendez as "1. Mild small vessel ischemic demyelination change. 2. Questionable diminished density within the cerebellum on both sides, worse on the left side possibly due to additional small vessel ischemic demyelination change but difficult to completely exclude early ischemic infarct. MRI study with diffusion would be helpful to confirm or rule out this possibility. 3. No acute intracranial hemorrhage or other acute abdomen mildly seen." He carries a history of: GERD, GI bleeds, liver failure, ulcers, chronic back pain, alcohol addiction, hepatic encephalopathy, type II DM, hypothyroidism, anemia, eczema, cellulitis, Advanced Liver Disease from Long Hx/o ETOH Abuse, Hx /o Esophageal Varices S/p TIPS, Pancytopenia 2/2 Liver Disease, Hypoalbuminemia 2/2 Liver Disease, Hyperbilubinemia, 2/2 Advanced Liver Disease. He is a full code. His PCPs with [facility]. Diagnosis: Stroke: No - Discharge Data Discharge Date: 11/14/18 (Admit date: 11/15/18) Discharge Disposition: Home, Self-Care 01 Condition: Good - Discharge Diagnosis/Problem(s) (1) Altered mental status SNOMED Code(s): 123831450 ICD Code: R41.82 - ALTERED MENTAL STATUS, UNSPECIFIED Status: Acute Priority: High Current Visit: Yes Qualifiers: Altered mental status type: unspecified Qualified Code(s): R41.82 - Altered mental status, unspecified (2) Hepatic encephalopathy SNOMED Code(s): 00848911 ICD Code: K72.90 - HEPATIC FAILURE, UNSPECIFIED WITHOUT COMA Status: Acute Priority: High Current Visit: Yes (3) Hypomagnesemia SNOMED Code(s): 183525477 ICD Code: E83.42 - HYPOMAGNESEMIA Status: Acute Priority: High Current Visit: Yes (4) Hyperglycemia due to type 2 diabetes mellitus SNOMED Code(s): 041760691117129, 876950422678907 ICD Code: E11.65 - TYPE 2 DIABETES MELLITUS WITH HYPERGLYCEMIA Status: Acute Priority: High Current Visit: Yes Qualifiers: Diabetes mellitus correction insulin use: without correction use Qualified Code(s): E11.65 - Type 2 diabetes mellitus with hyperglycemia (5) Hyperammonemia SNOMED Code(s): 5606391 ICD Code: E72.20 - DISORDER OF UREA CYCLE METABOLISM, UNSPECIFIED Status: Acute Priority: High Current Visit: Yes - Patient Summary/Data Consults: Consultations 11/13/18 09:17 Consult to Spiritual Care [CONS] Routine 11/13/18 09:55 Consult to Senior Actuarial Analyst [CONS] Routine 11/13/18 09:56 Consult to Case Management/Logging Tractor Operator [CONS] Routine 11/13/18 12:51 Consult to Diabetic Nurse Specialist [CONS] Routine 11/13/18 13:42 Consult to Occupational Therapy [OT Evaluation and Treatment] [CONS] Routine PT Evaluation and Treatment [CONS] Routine Labs Pending at D/C: None Recommended Follow-up Testing/Procedures: Follow-up with PCP within 7-10 days of discharge. Hospital Course: Assessment/Plan: Acute: Hepatic Encephalopathy - Acute on Chronic - 2/2 Advanced Liver Disease and Medical Non-compliance - Head CT scan as below; MRI as below - Ammonia level is 162-->67 - Unsure if he is taking his home meds; reportedly just returned home from a long trip - Resume Home Meds as ordered - Rectal lactulose given in ED and on floor -> advanced to PO - Monitor Ammonia level - Avoid NSAIDs - MVI, Folic and Thiamine Supplement when able to swallow Hypomagnesemia - Magnesium 1.5 in ED -->1.4 - 2/2 inadequate intake - Supplemented in ED - Subsequent level for pharmacy to monitor and replete - Continue home supplementation Hyperglycemia in Type II DM -Glucose 309 in ED-->191 -Hold home PO meds until mental status improves -> resume as ordered -Accu-check QID AC and Bedtime with ISS coverage -A1C 6.3 (improved from 7.4 on 08/01/19) Inactive: Abnormal head CT -CT obtained in ED 11/13/18 * 1. Mild small vessel ischemic demyelination change. * 2. Questionable diminished density within the cerebellum on both sides, worse on the left side possibly due to additional small vessel ischemic demyelination change but difficult to completely exclude early ischemic infarct. MRI study with diffusion would be helpful to confirm or rule out this possibility. * 3. No acute intracranial hemorrhage or other abnormality is seen. -MRI obtained 11/13/18: * 1. Mild small vessel ischemic demyelination change within the subcortical white matter. * 2. No abnormal signal is seen within the cerebellar hemispheres and prior CT finding most likely represents B Scott artifact. * 3. No acute diffusion abnormalities are seen Chronic: Advanced Liver Disease from Long Hx/o ETOH Abuse Hx/o Esophageal Varices S/p TIPS Pancytopenia 2/2 Liver Disease, Platelet and Hgb at baseline Hypoalbuminemia, 2/2 Liver Disease Albumin level at baseline DM2 Hyperbilubinemia, 2/2 Advanced Liver Disease Obesity GERD Chronic back pain GI bleeds hepatic encephalopathy hypothyroidism eczema Plan: Admit to Inpatient with Tele Routine AM labs Resume home meds when alert Dietary consult for weight and protein wasting management Aspiration and fall precautions DVT PPx: SCDs (Anticoags contraindicated due to low platelet levels) Hold metformin until more alert -> resume PT/OT consult dye house vat worker/CM for discharge planning Code status: Full code; PCP: LISETH Overall Kaden did well. He came in with AMS 2/2 hepatic encephalopathy. His ammonia was quite elevated at 162. He was started on 40mg TID Lactulose scheduled and his home medications were otherwise continued. He responded well to this and rapidly became much more responsive while on the floor. He reports he was down in [place] for meetings and while he reports he has been taking his medications exactly as prescribed, he does admit to me that he may have missed a dose or two. He was counseled on continuing to take his home medications as prescribed. He was A&Ox3 today with no real confusion noted. He did see our family medicine physician again. environmental educator was ordered but unavailable. His A1C has improved to 6.3 from 7.1 at the end of last year. He was covered with SS insulin while hospitalized. CT scan was obtained in the ED with results as above 2/2 to him being lethargic, which is not his normal state on admission. MRI was suggested by our radiologist and was obtained with results as above. Magnesium was supplemented while here. He was instructed to resume all home medications. Pharmacy reports he has not picked up his prescribed medications in some time but he reports he has had a good supply at home. He does say he thinks he is running low now and could use 4-5 bottles. Prescription for lactulose and xifaxan were sent to pharmacy and he is aware. He does have a PRN dose of lactulose ordered for if he is noted to have worsening confusion or signs of elevated ammonia levels. He should follow-up with his PCP within 7-10 days of discharge, sooner if needed. - Patient Instructions Diet: Diabetic Diet Activity: As Tolerated Notify Provider of: Fever, Increased Pain, Nausea and/or Vomiting - Discharge Plan *PRESCRIPTION DRUG MONITORING PROGRAM REVIEWED*: No *COPY OF PRESCRIPTION DRUG MONITORING REPORT IN PATIENT RAVI: No Prescriptions/Med Rec: Lactulose 30 gm PO Q12HR PRN #4 bottle PRN Reason: Other Lactulose 45 gm PO BID #10 bottle Rifaximin [Xifaxan] 550 mg PO BID #60 tablet Home Medications: Home Meds Cholecalciferol (Vitamin D3) [Vitamin D3] 2,000 unit PO DAILY #30 cap 11/16/17 [ Rx] Pantoprazole [ProTONIX] 40 mg PO DAILY #30 tab.cr 11/16/17 [Rx] Magnesium Oxide 800 mg PO BID 01/08/18 [History] Spironolactone [Aldactone] 12.5 mg PO BID 10/20/18 [History] metFORMIN HCl [Metformin HCl] 500 mg PO BIDMEALS 11/13/18 [History] Lactulose 30 gm PO Q12HR PRN #4 bottle 11/14/18 [Rx] Lactulose 45 gm PO BID #10 bottle 11/14/18 [Rx] Rifaximin [Xifaxan] 550 mg PO BID #60 tablet 11/14/18 [Rx] Oxygen Therapy Mode: Room Air Patient Handouts: Hepatic Encephalopathy, Lactulose oral solution Forms: ED Department Discharge Referrals: PCP,Not In Area [Primary Care Provider] - - Discharge Summary/Plan Comment DC Time >30 min.: Yes (45 minutes ) - General Info Date of Service: 11/14/18 Admission Dx/Problem (Free Text: Admission Diagnosis/Problem Admission Diagnosis/Problem Hepatic encephalopathy Functional Status: Reports: Pain Controlled, Tolerating Diet, Ambulating, Urinating. Denies: New Symptoms - Review of Systems General: Reports: No Symptoms. Denies: Fever, Weakness, Fatigue, Malaise, Chills HEENT: Reports: No Symptoms. Denies: Headaches, Sore Throat Pulmonary: Reports: No Symptoms. Denies: Shortness of Breath, Pleuritic Chest Pain, Cough, Sputum, Wheezing Cardiovascular: Reports: Edema (mild - chronic ). Denies: Chest Pain, Palpitations, Dyspnea on Exertion Gastrointestinal: Reports: Diarrhea (2/2 ). Denies: Abdominal Pain, Constipation, Nausea, Vomiting Genitourinary: Reports: No Symptoms. Denies: Pain Musculoskeletal: Reports: No Symptoms Skin: Reports: No Symptoms. Denies: Cyanosis, Jaundice Neurological: Reports: No Symptoms. Denies: Confusion, Dizziness, Headache, Numbness, Seizure, Difficulty Walking, Weakness, Change in Speech, Gait Disturbance Psychiatric: Reports: No Symptoms - Patient Data Vitals - Most Recent: Last Vital Signs Temp 98.8 F 11/13/18 21:26 Pulse 77 11/14/18 04:13 Resp 16 11/14/18 04:13 BP 126/60 11/14/18 04:13 Pulse Ox 95 11/14/18 04:13 Weight - Most Recent: 273 lb 3.2 oz I&O - Last 24 hours: Intake & Output 11/13/18 11/14/18 11/14/18 22:59 06:59 14:59 Intake Total 1989 2130 Output Total 1550 1300 Balance 440 831 Lab Results - Last 24 hrs: Laboratory Results - last 24 hr 11/13/18 11/13/18 11/13/18 Range/Units 09:00 11:33 16:37 WBC (4.23-9.07) K/mm3 RBC (4.63-6.08) M/mm3 Hgb (13.7-17.5) gm/L Hct (40.1-51.0) % MCV (79.0-92.2) fl MCH (25.7-32.2) pg MCHC (32.2-35.5) g/dl RDW Std Deviation (35.1-43.9) fL Plt Count (163-337) K/mm3 MPV (9.4-12.3) fl Neut % (Auto) (34.0-67.9) % Lymph % (Auto) (21.8-53.1) % [place] % (Auto) (5.3-12.2) % Eos % (Auto) (0.8-7.0) Baso % (Auto) (0.1-1.2) % Neut # (Auto) (1.78-5.38) K/mm3 Lymph # (Auto) (1.32-3.57) K/mm3 [place] # (Auto) (0.30-0.82) K/mm3 Eos # (Auto) (0.04-0.54) K/mm3 Baso # (Auto) (0.01-0.08) K/mm3 Manual Slide Review POC Glucose 243 H 286 H (70-105) mg/dL Hemoglobin A1c 6.30 H (4.50-6.20) % Ammonia (11-32) umol/L 11/13/18 11/13/18 11/14/18 Range/Units 21:18 21:20 05:43 WBC 3.04 L (4.23-9.07) K/mm3 RBC 2.83 L (4.63-6.08) M/mm3 Hgb 9.1 L (13.7-17.5) gm/L Hct 27.3 L (40.1-51.0) % MCV 96.5 H (79.0-92.2) fl MCH 32.2 (25.7-32.2) pg MCHC 33.3 (32.2-35.5) g/dl RDW Std Deviation 50.4 H (35.1-43.9) fL Plt Count 55 L (163-337) K/mm3 MPV 9.9 (9.4-12.3) fl Neut % (Auto) 57.3 (34.0-67.9) % Lymph % (Auto) 30.6 (21.8-53.1) % [place] % (Auto) 9.5 (5.3-12.2) % Eos % (Auto) 2.3 (0.8-7.0) Baso % (Auto) 0.3 (0.1-1.2) % Neut # (Auto) 1.74 L (1.78-5.38) K/mm3 Lymph # (Auto) 0.93 L (1.32-3.57) K/mm3 [place] # (Auto) 0.29 L (0.30-0.82) K/mm3 Eos # (Auto) 0.07 (0.04-0.54) K/mm3 Baso # (Auto) 0.01 (0.01-0.08) K/mm3 Manual Slide Review Abnormal smear POC Glucose 398 H 211 H (70-105) mg/dL Hemoglobin A1c (4.50-6.20) % Ammonia (11-32) umol/L 11/14/18 11/14/18 Range/Units 05:43 06:20 WBC (4.23-9.07) K/mm3 RBC (4.63-6.08) M/mm3 Hgb (13.7-17.5) gm/L Hct (40.1-51.0) % MCV (79.0-92.2) fl MCH (25.7-32.2) pg MCHC (32.2-35.5) g/dl RDW Std Deviation (35.1-43.9) fL Plt Count (163-337) K/mm3 MPV (9.4-12.3) fl Neut % (Auto) (34.0-67.9) % Lymph % (Auto) (21.8-53.1) % [place] % (Auto) (5.3-12.2) % Eos % (Auto) (0.8-7.0) Baso % (Auto) (0.1-1.2) % Neut # (Auto) (1.78-5.38) K/mm3 Lymph # (Auto) (1.32-3.57) K/mm3 [place] # (Auto) (0.30-0.82) K/mm3 Eos # (Auto) (0.04-0.54) K/mm3 Baso # (Auto) (0.01-0.08) K/mm3 Manual Slide Review POC Glucose 189 H (70-105) mg/dL Hemoglobin A1c (4.50-6.20) % Ammonia 67 H (11-32) umol/L Med Orders - Current: Current Medications Cholecalciferol (Vitamin D3) 2,000 units PO DAILY [facility] Dextrose/Water (Dextrose 50% In Water) 50 ml IV ASDIRECTED PRN PRN Reason: Hypoglycemia Hydralazine HCl (Apresoline) 20 mg IVPUSH Q4H PRN PRN Reason: Hypertension Sodium Chloride (Normal Saline) 1,000 mls @ 150 mls/hr IV ASDIRECTED [facility] Last Admin: 11/14/18 01:02 Dose: 150 mls/hr Insulin Human Lispro (Humalog) 0 unit SUBCUT QIDACANDBED [facility]; Protocol Last Admin: 11/13/18 21:26 Dose: 4 units Lactulose (Cephulac) 40 gm PO TID [facility] Last Admin: 11/13/18 21:30 Dose: 40 gm Magnesium Sulfate (Pharmacy To Dose - Magnesium Replacement) 1 dose .XX ASDIRECTED [facility] Metformin HCl (Glucophage) 500 mg PO BIDMEALS [facility] Last Admin: 11/14/18 06:29 Dose: 500 mg Metoprolol Tartrate (Lopressor) 5 mg IVPUSH Q4H PRN PRN Reason: Tachycardia Pantoprazole Sodium (Protonix) 40 mg PO DAILY [facility] Potassium Chloride (Pharmacy To Dose - Potassium Replacement) 1 dose .XX ASDIRECTED [facility] Rifaximin (Xifaxan) 550 mg PO BID [facility] Last Admin: 11/13/18 21:28 Dose: 550 mg Sodium Chloride (Saline Flush) 10 ml FLUSH ASDIRECTED PRN PRN Reason: Keep Vein Open Last Admin: 11/13/18 04:25 Dose: 10 ml Spironolactone (Aldactone) 12.5 mg PO BID [facility] Last Admin: 11/13/18 21:27 Dose: 12.5 mg Discontinued Medications Acetaminophen (Tylenol) 650 mg RECTAL Q4H PRN PRN Reason: Pain (mild 1-3) Magnesium Sulfate 4 gm/ Premix 50 mls @ 12.5 mls/hr IV ONETIME ONE Stop: 11/13/18 09:27 Last Admin: 11/13/18 05:42 Dose: Not Given Magnesium Sulfate (Magnesium Sulfate 2 Gm In Water 50 Ml) Confirm Administered Dose 100 mls @ as directed .ROUTE .STK-MED ONE Stop: 11/13/18 05:32 Last Admin: 11/13/18 05:42 Dose: Not Given Magnesium Sulfate 2 gm/ Premix 50 mls @ 25 mls/hr IV ONETIME ONE Stop: 11/13/18 07:38 Last Admin: 11/13/18 05:40 Dose: 25 mls/hr Magnesium Sulfate 2 gm/ Premix 50 mls @ 25 mls/hr IV ONETIME ONE Stop: 11/13/18 07:38 Last Admin: 11/13/18 07:30 Dose: 25 mls/hr Lactulose (Cephulac) 40 gm .XX ONETIME ONE Stop: 11/13/18 04:34 Last Admin: 11/13/18 04:50 Dose: 40 gm Lactulose (Cephulac) 40 gm .XX TID [facility] Last Admin: 11/13/18 11:55 Dose: 40 gm Magnesium Oxide (Magnesium Oxide) 800 mg PO BID DHIRAJ - Exam Quality Assessment: Reports: DVT Prophylaxis General: Reports: Alert, Oriented, Cooperative, No Acute Distress HEENT: Reports: Pupils Equal, Pupils Reactive, EOMI, Mucous Membr. Moist/[place], Scleral Icterus (chronic ) Neck: Reports: Supple, Trachea Midline, No JVD Lungs: Reports: Clear to Auscultation, Normal Respiratory Effort, Decreased Breath Sounds Cardiovascular: Reports: Regular Rate, Regular Rhythm GI/Abdominal Exam: Normal Bowel Sounds, Soft, Non-Tender, No Organomegaly, No Distention (Male) Exam: Deferred Rectal (Males) Exam: Deferred Back Exam: Reports: Normal Inspection, Full Range of Motion Extremities: Normal Inspection, Normal Range of Motion, Non-Tender, Normal Capillary Refill, Pedal Edema (trace ) Skin: Reports: Warm, Dry, Intact Neurological: Reports: No New Focal Deficit Psy/Mental Status: Reports: Alert, Normal Affect, Normal Mood
[2018-11-14] MEDS: Spironolactone 25 MG Tab PO SCH (08:08)
[2018-11-14] MEDS: Rifaximin 550 MG Tab PO SCH (08:08)
[2018-11-14] MEDS: Lactulose Soln 10 GM/15 ML 30 ML UD Cup PO SCH (08:09)
[2018-11-14] MEDS: Insulin Lispro 100 Units/ML 3 ML Vial SUBCUT SCH ×2 (08:09→12:36)
[2018-11-14] MEDS ORDERED: Magnesium Sulfate/Water 4 GM in Premix Bag 1 BAG IV ONE (08:30)
[2018-11-14] MEDS ORDERED: Pantoprazole 40 MG Tab.CR PO SCH (09:00)
[2018-11-14] MEDS ORDERED: Folic Acid 1 MG Tab PO SCH (09:00)
[2018-11-14] MEDS ORDERED: Multivitamins,Therapeutic Tab PO SCH (09:00)
[2018-11-14] MEDS ORDERED: Cholecalciferol (Vitamin D3) 1,000 Unit Tab PO SCH (09:00)
[2018-11-14] MEDS ORDERED: Thiamine 100 MG Tab PO SCH (09:00)
[2018-11-14 09:22] VITALS: BP 110/66
[2018-11-14] MEDS ORDERED: Magnesium Oxide 400 MG Tab PO ONE (11:00)
== END 2018-11-14 14:50 | disposition home or self-care (01) | DRG 279 ==
LOC: JD.ED 03:40 → JD.MS 08:30
PROVIDERS: ADMIT Internal Medicine; ATTEND Internal Medicine
DX: K72.00 Acute and subacute hepatic failure without coma (principal); K21.9 Gastro-esophageal reflux disease without esophagitis; M54.9 Dorsalgia, unspecified; G89.29 Other chronic pain; E11.9 Type 2 diabetes mellitus without complications; E03.9 Hypothyroidism, unspecified; I10 Essential (primary) hypertension; E72.20 Disorder of urea cycle metabolism, unspecified; E66.9 Obesity, unspecified; E83.42 Hypomagnesemia; E11.65 Type 2 diabetes mellitus with hyperglycemia; Z91.19 Patient's noncompliance with other medical treatment and regimen; Z79.84 Long term (current) use of oral hypoglycemic drugs; Z79.899 Other long term (current) drug therapy; Z68.41 Body mass index [BMI] 40.0-44.9, adult
CPT/HCPCS: 36415; 70450; 70450-26; 70551; 70551-26; 80053; 82140; 82962; 83036; 83735; 85025; 96361; 96365; 96366; 97161-GP; 97165-GO; 99283; 99285-25; A9270-GY; G0480; J1815-GY; J3475; J7040

== ENCOUNTER 2018-11-30 16:29 | Inpatient (IN) | payer BC ==
[2018-11-30] MEDS: Sodium Chloride 0.9% 10 ML Syringe FLUSH PRN (16:56)
[2018-11-30] MEDS ORDERED: Sodium Chloride 0.9% 1,000 ML IV SCH (17:00)
--- NOTE | 2018-11-30 18:24 | EDM.PDOC ---
ED HPI GENERAL MEDICAL PROBLEM - General Chief Complaint: Neurological Problem Stated Complaint: [facility] Time Seen by Provider: 11/30/18 16:40 Source of Information: Reports: EMS History Limitations: Reports: Altered Mental Status - History of Present Illness INITIAL COMMENTS - FREE TEXT/NARRATIVE: The patient presents by [facility] for altered mental status. The patient is in liver failure and he is on lactulose among other medicines for this. According to EMS he has not been taking his medications. They were told by family when they picked him up that the patient was fine this morning and ate breakfast but after that he was confused and not he will withdraw from painful stimuli. He was admitted to the hospital earlier this month with an ammonia level of 67. I am unable to get any other history from the patient. He is maintaining his airway at this time and his oxygen saturations are in the upper 90s. Onset: Gradual Duration: Hour(s): Severity: Severe Improves with: Reports: None Worsens with: Reports: None - Related Data Allergies Allergy/AdvReac Type Severity Reaction Status Date / Time No Known Allergies Allergy Verified 10/18/18 02:50 Home Meds: Home Meds Cholecalciferol (Vitamin D3) [Vitamin D3] 2,000 unit PO DAILY #30 cap 11/16/17 [ Rx] Pantoprazole [ProTONIX] 40 mg PO DAILY #30 tab.cr 11/16/17 [Rx] Magnesium Oxide 800 mg PO BID 01/08/18 [History] Spironolactone [Aldactone] 12.5 mg PO BID 10/20/18 [History] metFORMIN HCl [Metformin HCl] 500 mg PO BIDMEALS 11/13/18 [History] Lactulose 45 gm PO BID #10 bottle 11/14/18 [Rx] Rifaximin [Xifaxan] 550 mg PO BID #60 tablet 11/14/18 [Rx] Lactulose 30 gm PO Q6HR PRN 11/30/18 [History] Multivit-Min/FA/Lycopene/Lut [Sentry Senior Tablet] 1 each PO DAILY 11/30/18 [ History] Vitamin B Complex [B Complex] 1 each PO DAILY 11/30/18 [History] Past Medical History Cardiovascular History: Reports: Hypertension Other Cardiovascular History: UNABLE TO OBTAIN INFORMATION PT IS NOT VERBALLY RESPONSIVE AT THIS TIME Respiratory History: Reports: SOB Other Respiratory History: UNABLE TO OBTAIN INFORMATION PT IS NOT VERBALLY RESPONSIVE AT THIS TIME Gastrointestinal History: Reports: Cirrhosis, GERD, GI Bleed Other Gastrointestinal History: liver failure;stomach bleed. UNABLE TO OBTAIN INFORMATION PT IS NOT VERBALLY RESPONSIVE AT THIS TIME Genitourinary History: Reports: Other (See Below) Other Genitourinary History: UNABLE TO OBTAIN INFORMATION PT IS NOT VERBALLY RESPONSIVE AT THIS TIME Musculoskeletal History: Reports: Back Pain, Chronic Other Musculoskeletal History: UNABLE TO OBTAIN INFORMATION PT IS NOT VERBALLY RESPONSIVE AT THIS TIME Neurological History: Reports: Other (See Below) Other Neuro History: hepatic encephalopathy. UNABLE TO OBTAIN INFORMATION PT IS NOT VERBALLY RESPONSIVE AT THIS TIME Psychiatric History: Reports: Addiction Other Psychiatric History: Alcoholism-recovered addict. UNABLE TO OBTAIN INFORMATION PT IS NOT VERBALLY RESPONSIVE AT THIS TIME Endocrine/Metabolic History: Reports: Diabetes, Type II, Hypothyroidism, Obesity /BMI 30+ Other Endocrine/Metabolic History: UNABLE TO OBTAIN INFORMATION PT IS NOT VERBALLY RESPONSIVE AT THIS TIME Hematologic History: Reports: Anemia, Blood Transfusion(s) Other Hematologic History: UNABLE TO OBTAIN INFORMATION PT IS NOT VERBALLY RESPONSIVE AT THIS TIME Immunologic History: Reports: None Other Immunologic History: UNABLE TO OBTAIN INFORMATION PT IS NOT VERBALLY RESPONSIVE AT THIS TIME Oncologic (Cancer) History: Reports: Other (See Below) Other Oncologic History: UNABLE TO OBTAIN INFORMATION PT IS NOT VERBALLY RESPONSIVE AT THIS TIME Dermatologic History: Reports: Cellulitis, Eczema Other Dermatologic History: 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 History of cellulitis to both legs. UNABLE TO OBTAIN INFORMATION PT IS NOT VERBALLY RESPONSIVE AT THIS TIME - Infectious Disease History Infectious Disease History: Reports: Hepatitis non A,B,C, Measles, MRSA Other Infectious Disease History: patient cleared for MRSA 10/20/18 - Past Surgical History Head Surgeries/Procedures: Reports: None Other HEENT Surgeries/Procedures: UNABLE TO OBTAIN INFORMATION PT IS NOT VERBALLY RESPONSIVE AT THIS TIME GI Surgical History: Reports: Other (See Below) Social & Family History - Family History Family Medical History: Noncontributory - Tobacco Use Smoking Status *Q: Current Status Unknown - Caffeine Use Caffeine Use: Reports: Coffee, Soda Other Caffeine Use: unable to obtain Caffeine Use Comment: unable to obtain, patient unresponsive - Living Situation & Occupation Living situation: Reports: , with Family Occupation: Employed ED ROS GENERAL - Review of Systems Review Of Systems: Unable To Obtain - Physical Exam Exam: See Below Exam Limited By: Altered Mental Status General Appearance: Other (withdraws from painfull stimuli) Eye Exam: Bilateral Eye: Other (scleral icterus) Ears: Normal External Exam Nose: Normal Inspection Throat/Mouth: Normal Inspection Head Exam: Atraumatic, Normocephalic Neck: Normal Inspection, Supple, Non-Tender Respiratory/Chest: No Respiratory Distress, Lungs Clear, Normal Breath Sounds Cardiovascular: Regular Rate, Rhythm, No Edema, No Murmur GI/Abdominal: Soft, Non-Tender, No Organomegaly, No Mass Neuro Exam (Abbreviated): Other (Withdraws from painful stimuli and it appears he move all 4 extremities) Endotracheal Intubation - Endotracheal Intubation Time of Intubation: 18:55 ET Intubation Indication: Airway Protection Preparation: Suction, Balloon Tested, BVM Set Up, Difficult Airway Equip Airway Assessment: Large Tongue Pre-Oxygenation: Assisted with BVM, 100% FiO2 Anesthesia Meds: Etomidate, Succinylcholine Placement: Orotracheal, Cuffed, Uncomplicated Placement Cords Visualized: Yes ETT Size In mm: 8 Number of Attempts: 1 Confirmed By: CO2 Indicator, Bilateral Breath Sounds, Chest Xray Tube Secured By: By RT EKG INTERPRETATION EKG Date: 11/30/18 Time: 16:56 Rhythm: NSR Rate (Beats/Min): 86 [place]: LAD-Left [place] Deviation P-Wave: Present QRS: Normal ST-T: Normal QT: Prolonged Course - Vital Signs Last Recorded V/S: Last Vital Signs Temp 97.3 F 11/30/18 16:33 Pulse 91 11/30/18 16:33 Resp 22 H 11/30/18 16:33 BP 127/57 L 11/30/18 16:33 Pulse Ox 98 11/30/18 16:33 - Orders/Labs/Meds Orders: Active Orders 24 hr Category Date Time Status Cardiac Monitoring [RC] . DIRECTED Care 11/30/18 16:50 Active EKG Documentation Completion [RC] STAT Care 11/30/18 16:51 Active Peripheral IV Care [RC] . DIRECTED Care 11/30/18 16:51 Active RASS Sedation Scale [RC] ASDIRECTED Care 11/30/18 19:00 Ordered Chest 1V Frontal [CR] Stat Exams 11/30/18 19:01 Ordered Head wo Cont [CT] Stat Exams 11/30/18 16:51 Taken Propofol [Diprivan 100 ML] 100 ml Med 11/30/18 19:00 Ordered IV TITRATE Sodium Chloride 0.9% [Normal Saline] 1,000 ml Med 11/30/18 17:00 Active IV ASDIRECTED Sodium Chloride 0.9% [Saline Flush] Med 11/30/18 16:50 Active 10 ml FLUSH ASDIRECTED PRN Desired Level of Sedation (RASS) [AST] Click To Edit Oth 11/30/18 19:00 Ordered Peripheral IV Insertion Adult [OM.PC] Stat Oth 11/30/18 16:50 Ordered Medication Orders Sodium Chloride (Normal Saline) 1,000 mls @ 125 mls/hr IV ASDIRECTED DHIRAJ Last Admin: 11/30/18 16:55 Dose: 125 mls/hr Propofol (Diprivan 100 Ml) 100 mls @ 7.348 mls/hr IV TITRATE DHIRAJ; Protocol Sodium Chloride (Saline Flush) 10 ml FLUSH ASDIRECTED PRN PRN Reason: Keep Vein Open Last Admin: 11/30/18 16:56 Dose: 10 ml Labs: Laboratory Tests 11/30/18 11/30/18 11/30/18 Range/Units 16:43 16:53 16:53 WBC (4.23-9.07) K/mm3 RBC (4.63-6.08) M/mm3 Hgb (13.7-17.5) gm/L Hct (40.1-51.0) % MCV (79.0-92.2) fl MCH (25.7-32.2) pg MCHC (32.2-35.5) g/dl RDW Std Deviation (35.1-43.9) fL Plt Count (163-337) K/mm3 MPV (9.4-12.3) fl Neut % (Auto) (34.0-67.9) % Lymph % (Auto) (21.8-53.1) % Payne % (Auto) (5.3-12.2) % Eos % (Auto) (0.8-7.0) Baso % (Auto) (0.1-1.2) % Neut # (Auto) (1.78-5.38) K/mm3 Lymph # (Auto) (1.32-3.57) K/mm3 Payne # (Auto) (0.30-0.82) K/mm3 Eos # (Auto) (0.04-0.54) K/mm3 Baso # (Auto) (0.01-0.08) K/mm3 Manual Slide Review PT (9.5-12.1) SECONDS INR Sodium (136-145) mEq/L Potassium (3.5-5.1) mEq/L Chloride (98-107) mEq/L Carbon Dioxide (21-32) mEq/L Anion Gap (5-15) BUN (7-18) mg/dL Creatinine (0.7-1.3) mg/dL Est Cr Clr Drug Dosing mL/min Estimated GFR (MDRD) (>60) mL/min BUN/Creatinine Ratio (14-18) Glucose (74-106) mg/dL POC Glucose 173 H (70-105) mg/dL Calcium (8.5-10.1) mg/dL Total Bilirubin (0.2-1.0) mg/dL AST (15-37) U/L ALT (16-63) U/L Alkaline Phosphatase (46-116) U/L Ammonia (11-32) umol/L Troponin I (0.00-0.056) ng/mL Total Protein (6.4-8.2) g/dl Albumin (3.4-5.0) g/dl Globulin gm/dL Albumin/Globulin Ratio (1-2) Lipase (73-393) U/L Urine Color Yellow (Yellow) Urine Appearance Slt cloudy H (Clear) Urine pH 7.5 (5.0-8.0) Ur Specific Reva 1.015 (1.005-1.030) Urine Protein Negative (Negative) Urine Glucose (UA) Trace H (Negative) Urine Ketones Negative (Negative) Urine Occult Blood 2+ H (Negative) Urine Nitrite Negative (Negative) Urine Bilirubin Negative (Negative) Urine Urobilinogen 4.0 H (0.2-1.0) Ur Leukocyte Esterase Trace H (Negative) Urine RBC 5-10 H (0-5) /hpf Urine WBC 5-10 H (0-5) /hpf Ur Squamous Epith Cells 0-5 (0-5) /hpf Urine Bacteria Occasional (FEW) /hpf Urine Mucus Not seen (FEW) /hpf Urine Opiates Screen Negative (QJCJSQ=735) Ur Buprenorphine Scrn Negative (CUTOFF=10) Ur Oxycodone Screen Negative (EOS4VE=245) Urine Methadone Screen Negative (SYR2HO=000) Ur Propoxyphene Screen Negative (YSVQNM=800) Ur Barbiturates Screen Negative (YRPLIO=987) Ur Tricyclics Screen Negative (KTPIAL=065) Ur Phencyclidine Scrn Negative (CUTOFF=25) Ur Amphetamine Screen Negative (RKOIUB=861) U Methamphetamines Scrn Negative (XGLUTP=194) U Benzodiazepines Scrn Negative (YEKMLB=942) U Cocaine Metab Screen Negative (TFQTLX=626) U Marijuana (THC) Screen Negative (CUTOFF=50) Ethyl Alcohol (0.00) gm% 11/30/18 11/30/18 11/30/18 Range/Units 17:00 17:00 17:00 WBC 3.99 L (4.23-9.07) K/mm3 RBC 3.17 L (4.63-6.08) M/mm3 Hgb 10.6 L D (13.7-17.5) gm/L Hct 30.4 L (40.1-51.0) % MCV 95.9 H (79.0-92.2) fl MCH 33.4 H (25.7-32.2) pg MCHC 34.9 (32.2-35.5) g/dl RDW Std Deviation 53.3 H (35.1-43.9) fL Plt Count 55 L (163-337) K/mm3 MPV 9.8 (9.4-12.3) fl Neut % (Auto) 70.6 H (34.0-67.9) % Lymph % (Auto) 19.5 L (21.8-53.1) % Payne % (Auto) 8.8 (5.3-12.2) % Eos % (Auto) 0.8 (0.8-7.0) Baso % (Auto) 0.3 (0.1-1.2) % Neut # (Auto) 2.82 (1.78-5.38) K/mm3 Lymph # (Auto) 0.78 L (1.32-3.57) K/mm3 Payne # (Auto) 0.35 (0.30-0.82) K/mm3 Eos # (Auto) 0.03 L (0.04-0.54) K/mm3 Baso # (Auto) 0.01 (0.01-0.08) K/mm3 Manual Slide Review Abnormal smear PT 14.6 H (9.5-12.1) SECONDS INR 1.35 Sodium 140 (136-145) mEq/L Potassium 4.1 (3.5-5.1) mEq/L Chloride 110 H (98-107) mEq/L Carbon Dioxide 21 (21-32) mEq/L Anion Gap 13.1 (5-15) BUN 10 (7-18) mg/dL Creatinine 0.9 (0.7-1.3) mg/dL Est Cr Clr Drug Dosing 91.25 mL/min Estimated GFR (MDRD) > 60 (>60) mL/min BUN/Creatinine Ratio 11.1 L (14-18) Glucose 177 H (74-106) mg/dL POC Glucose (70-105) mg/dL Calcium 8.5 (8.5-10.1) mg/dL Total Bilirubin 2.8 H (0.2-1.0) mg/dL AST 32 (15-37) U/L ALT 32 (16-63) U/L Alkaline Phosphatase 94 (46-116) U/L Ammonia (11-32) umol/L Troponin I 0.033 (0.00-0.056) ng/mL Total Protein 6.9 (6.4-8.2) g/dl Albumin 1.9 L (3.4-5.0) g/dl Globulin 5.0 gm/dL Albumin/Globulin Ratio 0.4 L (1-2) Lipase 258 (73-393) U/L Urine Color (Yellow) Urine Appearance (Clear) Urine pH (5.0-8.0) Ur Specific Reva (1.005-1.030) Urine Protein (Negative) Urine Glucose (UA) (Negative) Urine Ketones (Negative) Urine Occult Blood (Negative) Urine Nitrite (Negative) Urine Bilirubin (Negative) Urine Urobilinogen (0.2-1.0) Ur Leukocyte Esterase (Negative) Urine RBC (0-5) /hpf Urine WBC (0-5) /hpf Ur Squamous Epith Cells (0-5) /hpf Urine Bacteria (FEW) /hpf Urine Mucus (FEW) /hpf Urine Opiates Screen (NOEXPL=697) Ur Buprenorphine Scrn (CUTOFF=10) Ur Oxycodone Screen (IKX3JS=264) Urine Methadone Screen (KTK5ST=715) Ur Propoxyphene Screen (QGFILC=788) Ur Barbiturates Screen (UMNBZX=631) Ur Tricyclics Screen (RTFLYB=794) Ur Phencyclidine Scrn (CUTOFF=25) Ur Amphetamine Screen (IEOBVW=657) U Methamphetamines Scrn (EHAQRV=007) U Benzodiazepines Scrn (ESFJKP=190) U Cocaine Metab Screen (GDVSQV=131) U Marijuana (THC) Screen (CUTOFF=50) Ethyl Alcohol 0.00 (0.00) gm% 11/30/18 Range/Units 17:00 WBC (4.23-9.07) K/mm3 RBC (4.63-6.08) M/mm3 Hgb (13.7-17.5) gm/L Hct (40.1-51.0) % MCV (79.0-92.2) fl MCH (25.7-32.2) pg MCHC (32.2-35.5) g/dl RDW Std Deviation (35.1-43.9) fL Plt Count (163-337) K/mm3 MPV (9.4-12.3) fl Neut % (Auto) (34.0-67.9) % Lymph % (Auto) (21.8-53.1) % Payne % (Auto) (5.3-12.2) % Eos % (Auto) (0.8-7.0) Baso % (Auto) (0.1-1.2) % Neut # (Auto) (1.78-5.38) K/mm3 Lymph # (Auto) (1.32-3.57) K/mm3 Payne # (Auto) (0.30-0.82) K/mm3 Eos # (Auto) (0.04-0.54) K/mm3 Baso # (Auto) (0.01-0.08) K/mm3 Manual Slide Review PT (9.5-12.1) SECONDS INR Sodium (136-145) mEq/L Potassium (3.5-5.1) mEq/L Chloride (98-107) mEq/L Carbon Dioxide (21-32) mEq/L Anion Gap (5-15) BUN (7-18) mg/dL Creatinine (0.7-1.3) mg/dL Est Cr Clr Drug Dosing mL/min Estimated GFR (MDRD) (>60) mL/min BUN/Creatinine Ratio (14-18) Glucose (74-106) mg/dL POC Glucose (70-105) mg/dL Calcium (8.5-10.1) mg/dL Total Bilirubin (0.2-1.0) mg/dL AST (15-37) U/L ALT (16-63) U/L Alkaline Phosphatase (46-116) U/L Ammonia 167 H (11-32) umol/L Troponin I (0.00-0.056) ng/mL Total Protein (6.4-8.2) g/dl Albumin (3.4-5.0) g/dl Globulin gm/dL Albumin/Globulin Ratio (1-2) Lipase (73-393) U/L Urine Color (Yellow) Urine Appearance (Clear) Urine pH (5.0-8.0) Ur Specific Reva (1.005-1.030) Urine Protein (Negative) Urine Glucose (UA) (Negative) Urine Ketones (Negative) Urine Occult Blood (Negative) Urine Nitrite (Negative) Urine Bilirubin (Negative) Urine Urobilinogen (0.2-1.0) Ur Leukocyte Esterase (Negative) Urine RBC (0-5) /hpf Urine WBC (0-5) /hpf Ur Squamous Epith Cells (0-5) /hpf Urine Bacteria (FEW) /hpf Urine Mucus (FEW) /hpf Urine Opiates Screen (GIMANB=059) Ur Buprenorphine Scrn (CUTOFF=10) Ur Oxycodone Screen (LSB6IN=281) Urine Methadone Screen (IXX8QT=186) Ur Propoxyphene Screen (QESUPA=031) Ur Barbiturates Screen (AGUVWX=355) Ur Tricyclics Screen (ZWLXBN=344) Ur Phencyclidine Scrn (CUTOFF=25) Ur Amphetamine Screen (ZSIHVM=143) U Methamphetamines Scrn (UOECUR=479) U Benzodiazepines Scrn (ISZPGU=595) U Cocaine Metab Screen (WUTFGD=529) U Marijuana (THC) Screen (CUTOFF=50) Ethyl Alcohol (0.00) gm% Meds: Medications Generic Name Dose Route Start Last Admin Trade Name Freq PRN Reason Stop Dose Admin Sodium Chloride 1,000 mls @ 125 mls/hr 11/30/18 17:00 11/30/18 16:55 Normal Saline IV 125 mls/hr ASDIRECTED DHIRAJ Administration Propofol 100 mls @ 7.348 mls/hr 11/30/18 19:00 Diprivan 100 Ml IV TITRATE DHIRAJ Protocol 10 MCG/KG/MIN Sodium Chloride 10 ml 11/30/18 16:50 11/30/18 16:56 Saline Flush FLUSH 10 ml ASDIRECTED PRN Administration Keep Vein Open Discontinued Medications Generic Name Dose Route Start Last Admin Trade Name Lavern PRN Reason Stop Dose Admin Etomidate 30 mg 11/30/18 18:38 11/30/18 18:52 Amidate IVPUSH 11/30/18 18:39 30 mg ONETIME ONE Administration Lactulose 60 gm 11/30/18 19:00 Cephulac NGTUBE 11/30/18 19:01 ONETIME ONE Succinylcholine Chloride 180 mg 11/30/18 18:45 11/30/18 18:53 Quelicin IV 11/30/18 18:46 180 mg ONETIME ONE Administration - Re-Assessments/Exams Free Text/Narrative Re-Assessment/Exam: 11/30/18 18:29 I ordered an IV NS at 125mL/hr, labs, UA, UDS, EKG, and CT of his head. His EKG shows a NSR with no acute changes. His CT of his head shows no acute intracranial abnormality. No significant change since the prior study dated 11/13. His WBC is low at 3.99. His Hgb was low at 10.6. His platelets are low at 55. His INR was elevated at 1.35. His PT is elevated at 14.6. His glucose is elevated at 177. His total bili is elevated at 2.8. His AST is normal along with his ALT. His ammonia is elevated at 167. His troponin is negative. His UA shows no UTI. His urine drug screen is negative. His EOTH is 0. I talked with Dr Nuno and the patient needs lactulose but with how altered he is he cannot take it orally. I will have to secure his airway and put an NG tube in and give him the lactulose that way. I used etomidate 30mg IV and succinylcholine 180mg IV to intubate him. I ordered a propofol drip after for sedation. I ordered vent with A/C tidal volume of 500, PEEP of 5, rate of 14 and FIO2 of 30%. I will get an ABG in 1/2 hour. I also ordered the lactulose. 11/30/18 19:01 11/30/18 19:09 An NG tube was also placed. Departure - Departure Time of Disposition: 19:10 Disposition: Admitted As Inpatient 65 Condition: Serious Clinical Impression: Cirrhosis of liver, Hyperammonemia Altered mental status Qualifiers: Altered mental status type: unspecified Qualified Code(s): R41.82 - Altered mental status, unspecified Iron deficiency anemia Qualifiers: Iron deficiency anemia type: unspecified iron deficiency Qualified Code(s): D50.9 - Iron deficiency anemia, unspecified - Discharge Information Referrals: PCP,None [Primary Care Provider] - Forms: ED Department Discharge - My Orders Last 24 Hours: My Active Orders 11/30/18 16:50 Cardiac Monitoring [RC] . DIRECTED Sodium Chloride 0.9% [Saline Flush] 10 ml FLUSH ASDIRECTED PRN Peripheral IV Insertion Adult [OM.PC] Stat 11/30/18 16:51 EKG Documentation Completion [RC] STAT Peripheral IV Care [RC] . DIRECTED Head wo Cont [CT] Stat 11/30/18 17:00 Sodium Chloride 0.9% [Normal Saline] 1,000 ml IV ASDIRECTED 11/30/18 19:00 RASS Sedation Scale [RC] ASDIRECTED Propofol [Diprivan 100 ML] 100 ml IV TITRATE Desired Level of Sedation (RASS) [AST] Click To Edit 11/30/18 19:01 Chest 1V Frontal [CR] Stat - Assessment/Plan Last 24 Hours: My Active Orders 11/30/18 16:50 Cardiac Monitoring [RC] . DIRECTED Sodium Chloride 0.9% [Saline Flush] 10 ml FLUSH ASDIRECTED PRN Peripheral IV Insertion Adult [OM.PC] Stat 11/30/18 16:51 EKG Documentation Completion [RC] STAT Peripheral IV Care [RC] . DIRECTED Head wo Cont [CT] Stat 11/30/18 17:00 Sodium Chloride 0.9% [Normal Saline] 1,000 ml IV ASDIRECTED 11/30/18 19:00 RASS Sedation Scale [RC] ASDIRECTED Propofol [Diprivan 100 ML] 100 ml IV TITRATE Desired Level of Sedation (RASS) [AST] Click To Edit 11/30/18 19:01 Chest 1V Frontal [CR] Stat
[2018-11-30] MEDS ORDERED: Succinylcholine 200 MG/10 ML MDV IV ONE (18:45)
[2018-11-30] MEDS: Etomidate 2 MG/ML 20 ML SDV IVPUSH ONE ×2 (18:52→18:54)
[2018-11-30] MEDS ORDERED: Lactulose Soln 10 GM/15 ML 30 ML UD Cup NGTUBE ONE (19:00)
[2018-11-30] MEDS ORDERED: Midazolam 1 MG/ML 5 ML SDV IVPUSH ONE (19:29)
--- NOTE | 2018-11-30 20:57 | PCM.HP ---
H&P History of Present Illness - General Date of Service: 11/30/18 Admit Problem/Dx: Admission Diagnosis/Problem Admission Diagnosis/Problem Cirrhosis of liver Source of Information: Provider History Limitations: Reports: No Limitations - History of Present Illness Initial Comments - Free Text/Narative: 58 year old male who presents with AMS, has elevated ammonia level; he is s/p intubation in the ED. The patient withdraws to pain only, was unable to take lactulose orally, received 60 gm via NGT after intubation. It is unknown whether the patient has been taking his medication with certainty. However it appears that he has not per reportedly history by family members. He had a Carey placed in the ED. The patient is a full code, and will be admitted to the ICU. A CT of the head without contrast was performed which is unchanged from the 11/13/18 imaging. The patient lost a tooth, it is unknown when it may have occurred. He is reportedly s/p fall SKIDDER without LOC. PMH: GERD, GI bleeds, liver failure, ulcers, chronic back pain, alcohol addiction, hepatic encephalopathy, type II DM, hypothyroidism, anemia, eczema, cellulitis, Advanced Liver Disease from Long Hx/o ETOH Abuse, Hx/o Esophageal Varices S/p TIPS, Pancytopenia 2/2 Liver Disease, Hypoalbuminemia 2/2 Liver Disease, Hyperbilirubinemia, 2/2 Advanced Liver Disease. He is a full code. His PCPs with [facility]. 11/13/[address] scan was obtained and interpreted by Dr. Mendez as "1. Mild small vessel ischemic demyelination change. 2. Questionable diminished density within the cerebellum on both sides, worse on the left side possibly due to additional small vessel ischemic demyelination change but difficult to completely exclude early ischemic infarct. MRI study with diffusion would be helpful to confirm or rule out this possibility. 3. No acute intracranial hemorrhage or other acute abdomen mildly seen." Onset of Symptoms: Reports: Unknown/Unsure Symptom Onset Date: 11/30/18 Duration of Symptoms: Reports: Hour(s):, Getting Worse Location: Reports: Generalized Severity: Severe Improves with: Reports: None Worsens with: Reports: None Associated Symptoms: Reports: Other (obtunded) - Related Data Allergies/Adverse Reactions: Allergies Allergy/AdvReac Type Severity Reaction Status Date / Time No Known Allergies Allergy Verified 11/30/18 23:28 Home Medications: Home Meds Cholecalciferol (Vitamin D3) [Vitamin D3] 2,000 unit PO DAILY #30 cap 11/16/17 [ Rx] Pantoprazole [ProTONIX] 40 mg PO DAILY #30 tab.cr 11/16/17 [Rx] Magnesium Oxide 800 mg PO BID 01/08/18 [History] Spironolactone [Aldactone] 12.5 mg PO BID 10/20/18 [History] metFORMIN HCl [Metformin HCl] 500 mg PO BIDMEALS 11/13/18 [History] Lactulose 45 gm PO BID #10 bottle 11/14/18 [Rx] Rifaximin [Xifaxan] 550 mg PO BID #60 tablet 11/14/18 [Rx] Lactulose 30 gm PO Q6HR PRN 11/30/18 [History] Multivit-Min/FA/Lycopene/Lut [Sentry Senior Tablet] 1 each PO DAILY 11/30/18 [ History] Vitamin B Complex [B Complex] 1 each PO DAILY 11/30/18 [History] Past Medical History Cardiovascular History: Reports: Hypertension Other Cardiovascular History: UNABLE TO OBTAIN INFORMATION PT IS NOT VERBALLY RESPONSIVE AT THIS TIME Respiratory History: Reports: SOB Other Respiratory History: UNABLE TO OBTAIN INFORMATION PT IS NOT VERBALLY RESPONSIVE AT THIS TIME Gastrointestinal History: Reports: Cirrhosis, GERD, GI Bleed Other Gastrointestinal History: liver failure;stomach bleed. UNABLE TO OBTAIN INFORMATION PT IS NOT VERBALLY RESPONSIVE AT THIS TIME Genitourinary History: Reports: Other (See Below) Other Genitourinary History: UNABLE TO OBTAIN INFORMATION PT IS NOT VERBALLY RESPONSIVE AT THIS TIME Musculoskeletal History: Reports: Back Pain, Chronic Other Musculoskeletal History: UNABLE TO OBTAIN INFORMATION PT IS NOT VERBALLY RESPONSIVE AT THIS TIME Neurological History: Reports: Other (See Below) Other Neuro History: hepatic encephalopathy. UNABLE TO OBTAIN INFORMATION PT IS NOT VERBALLY RESPONSIVE AT THIS TIME Psychiatric History: Reports: Addiction Other Psychiatric History: Alcoholism-recovered addict. UNABLE TO OBTAIN INFORMATION PT IS NOT VERBALLY RESPONSIVE AT THIS TIME Endocrine/Metabolic History: Reports: Diabetes, Type II, Hypothyroidism, Obesity /BMI 30+ Other Endocrine/Metabolic History: UNABLE TO OBTAIN INFORMATION PT IS NOT VERBALLY RESPONSIVE AT THIS TIME Hematologic History: Reports: Anemia, Blood Transfusion(s) Other Hematologic History: UNABLE TO OBTAIN INFORMATION PT IS NOT VERBALLY RESPONSIVE AT THIS TIME Immunologic History: Reports: None Other Immunologic History: UNABLE TO OBTAIN INFORMATION PT IS NOT VERBALLY RESPONSIVE AT THIS TIME Oncologic (Cancer) History: Reports: Other (See Below) Other Oncologic History: UNABLE TO OBTAIN INFORMATION PT IS NOT VERBALLY RESPONSIVE AT THIS TIME Dermatologic History: Reports: Cellulitis, Eczema Other Dermatologic History: 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 History of cellulitis to both legs. UNABLE TO OBTAIN INFORMATION PT IS NOT VERBALLY RESPONSIVE AT THIS TIME - Infectious Disease History Infectious Disease History: Reports: Hepatitis non A,B,C, Measles, MRSA Other Infectious Disease History: patient cleared for MRSA 10/20/18 - Past Surgical History Head Surgeries/Procedures: Reports: None Other HEENT Surgeries/Procedures: UNABLE TO OBTAIN INFORMATION PT IS NOT VERBALLY RESPONSIVE AT THIS TIME GI Surgical History: Reports: Other (See Below) Social & Family History - Family History Family Medical History: Noncontributory - Tobacco Use Smoking Status *Q: Current Status Unknown - Caffeine Use Caffeine Use: Reports: Coffee, Soda Other Caffeine Use: unable to obtain Caffeine Use Comment: unable to obtain, patient unresponsive - Living Situation & Occupation Living situation: Reports: , with Family Occupation: Employed H&P Review of Systems - Review of Systems: Review Of Systems: See Below Exam - Exam Exam: See Below - Vital Signs Vital Signs: Last Vital Signs Temp 36.3 C 11/30/18 16:33 Pulse 91 11/30/18 16:33 Resp 20 11/30/18 20:22 BP 127/57 L 11/30/18 16:33 Pulse Ox 96 11/30/18 20:22 Weight: 122.47 kg - Exam Quality Assessment: Supplemental Oxygen, Urinary Catheter, DVT Prophylaxis General: Obtunded HEENT: Pupils Equal, Pupils Reactive, Scleral Icterus Neck: Trachea Midline Lungs: Normal Respiratory Effort Cardiovascular: Regular Rate, Regular Rhythm GI/Abdominal Exam: Normal Bowel Sounds, Soft, No Distention (Male) Exam: Deferred Rectal (Males) Exam: Deferred Back Exam: Normal Inspection Extremities: Normal Inspection, Slow Capillary Refill Skin: Warm Neurological: Cranial Nerves Intact Neuro Extensive - Mental Status: Withdraws to Pain Neuro Extensive - Motor, Sensory, Reflexes: CN II-XII Intact Psychiatric: Other (obtunded) - Patient Data Lab Results Last 24 hrs: Laboratory Results - last 24 hr 11/30/18 11/30/18 11/30/18 Range/Units 16:43 16:53 16:53 WBC (4.23-9.07) K/mm3 RBC (4.63-6.08) M/mm3 Hgb (13.7-17.5) gm/L Hct (40.1-51.0) % MCV (79.0-92.2) fl MCH (25.7-32.2) pg MCHC (32.2-35.5) g/dl RDW Std Deviation (35.1-43.9) fL Plt Count (163-337) K/mm3 MPV (9.4-12.3) fl Neut % (Auto) (34.0-67.9) % Lymph % (Auto) (21.8-53.1) % [place] % (Auto) (5.3-12.2) % Eos % (Auto) (0.8-7.0) Baso % (Auto) (0.1-1.2) % Neut # (Auto) (1.78-5.38) K/mm3 Lymph # (Auto) (1.32-3.57) K/mm3 [place] # (Auto) (0.30-0.82) K/mm3 Eos # (Auto) (0.04-0.54) K/mm3 Baso # (Auto) (0.01-0.08) K/mm3 Manual Slide Review PT (9.5-12.1) SECONDS INR Sodium (136-145) mEq/L Potassium (3.5-5.1) mEq/L Chloride (98-107) mEq/L Carbon Dioxide (21-32) mEq/L Anion Gap (5-15) BUN (7-18) mg/dL Creatinine (0.7-1.3) mg/dL Est Cr Clr Drug Dosing mL/min Estimated GFR (MDRD) (>60) mL/min BUN/Creatinine Ratio (14-18) Glucose (74-106) mg/dL POC Glucose 173 H (70-105) mg/dL Calcium (8.5-10.1) mg/dL Total Bilirubin (0.2-1.0) mg/dL AST (15-37) U/L ALT (16-63) U/L Alkaline Phosphatase (46-116) U/L Ammonia (11-32) umol/L Troponin I (0.00-0.056) ng/mL Total Protein (6.4-8.2) g/dl Albumin (3.4-5.0) g/dl Globulin gm/dL Albumin/Globulin Ratio (1-2) Lipase (73-393) U/L Urine Color Yellow (Yellow) Urine Appearance Slt cloudy H (Clear) Urine pH 7.5 (5.0-8.0) Ur Specific [place] 1.015 (1.005-1.030) Urine Protein Negative (Negative) Urine Glucose (UA) Trace H (Negative) Urine Ketones Negative (Negative) Urine Occult Blood 2+ H (Negative) Urine Nitrite Negative (Negative) Urine Bilirubin Negative (Negative) Urine Urobilinogen 4.0 H (0.2-1.0) Ur Leukocyte Esterase Trace H (Negative) Urine RBC 5-10 H (0-5) /hpf Urine WBC 5-10 H (0-5) /hpf Ur Squamous Epith Cells 0-5 (0-5) /hpf Urine Bacteria Occasional (FEW) /hpf Urine Mucus Not seen (FEW) /hpf Urine Opiates Screen Negative (HBFLHK=146) Ur Buprenorphine Scrn Negative (CUTOFF=10) Ur Oxycodone Screen Negative (SUV3KY=070) Urine Methadone Screen Negative (VEG5TB=235) Ur Propoxyphene Screen Negative (PUFFTB=665) Ur Barbiturates Screen Negative (VZZSRI=385) Ur Tricyclics Screen Negative (QRKSGD=987) Ur Phencyclidine Scrn Negative (CUTOFF=25) Ur Amphetamine Screen Negative (YLQKCV=205) U Methamphetamines Scrn Negative (QUVLXR=058) U Benzodiazepines Scrn Negative (BIQCRW=132) U Cocaine Metab Screen Negative (KHHJBK=332) U Marijuana (THC) Screen Negative (CUTOFF=50) Ethyl Alcohol (0.00) gm% 11/30/18 11/30/18 11/30/18 Range/Units 17:00 17:00 17:00 WBC 3.99 L (4.23-9.07) K/mm3 RBC 3.17 L (4.63-6.08) M/mm3 Hgb 10.6 L D (13.7-17.5) gm/L Hct 30.4 L (40.1-51.0) % MCV 95.9 H (79.0-92.2) fl MCH 33.4 H (25.7-32.2) pg MCHC 34.9 (32.2-35.5) g/dl RDW Std Deviation 53.3 H (35.1-43.9) fL Plt Count 55 L (163-337) K/mm3 MPV 9.8 (9.4-12.3) fl Neut % (Auto) 70.6 H (34.0-67.9) % Lymph % (Auto) 19.5 L (21.8-53.1) % Mchenry % (Auto) 8.8 (5.3-12.2) % Eos % (Auto) 0.8 (0.8-7.0) Baso % (Auto) 0.3 (0.1-1.2) % Neut # (Auto) 2.82 (1.78-5.38) K/mm3 Lymph # (Auto) 0.78 L (1.32-3.57) K/mm3 [place] # (Auto) 0.35 (0.30-0.82) K/mm3 Eos # (Auto) 0.03 L (0.04-0.54) K/mm3 Baso # (Auto) 0.01 (0.01-0.08) K/mm3 Manual Slide Review Abnormal smear PT 14.6 H (9.5-12.1) SECONDS INR 1.35 Sodium 140 (136-145) mEq/L Potassium 4.1 (3.5-5.1) mEq/L Chloride 110 H (98-107) mEq/L Carbon Dioxide 21 (21-32) mEq/L Anion Gap 13.1 (5-15) BUN 10 (7-18) mg/dL Creatinine 0.9 (0.7-1.3) mg/dL Est Cr Clr Drug Dosing 91.25 mL/min Estimated GFR (MDRD) > 60 (>60) mL/min BUN/Creatinine Ratio 11.1 L (14-18) Glucose 177 H (74-106) mg/dL POC Glucose (70-105) mg/dL Calcium 8.5 (8.5-10.1) mg/dL Total Bilirubin 2.8 H (0.2-1.0) mg/dL AST 32 (15-37) U/L ALT 32 (16-63) U/L Alkaline Phosphatase 94 (46-116) U/L Ammonia (11-32) umol/L Troponin I 0.033 (0.00-0.056) ng/mL Total Protein 6.9 (6.4-8.2) g/dl Albumin 1.9 L (3.4-5.0) g/dl Globulin 5.0 gm/dL Albumin/Globulin Ratio 0.4 L (1-2) Lipase 258 (73-393) U/L Urine Color (Yellow) Urine Appearance (Clear) Urine pH (5.0-8.0) Ur Specific [place] (1.005-1.030) Urine Protein (Negative) Urine Glucose (UA) (Negative) Urine Ketones (Negative) Urine Occult Blood (Negative) Urine Nitrite (Negative) Urine Bilirubin (Negative) Urine Urobilinogen (0.2-1.0) Ur Leukocyte Esterase (Negative) Urine RBC (0-5) /hpf Urine WBC (0-5) /hpf Ur Squamous Epith Cells (0-5) /hpf Urine Bacteria (FEW) /hpf Urine Mucus (FEW) /hpf Urine Opiates Screen (LEJPAB=210) Ur Buprenorphine Scrn (CUTOFF=10) Ur Oxycodone Screen (PJF3MX=886) Urine Methadone Screen (SVE8ZN=505) Ur Propoxyphene Screen (IIFDWY=064) Ur Barbiturates Screen (VIYEBT=476) Ur Tricyclics Screen (YFZKKQ=402) Ur Phencyclidine Scrn (CUTOFF=25) Ur Amphetamine Screen (EGWIID=981) U Methamphetamines Scrn (JPNBUT=851) U Benzodiazepines Scrn (XZWNPY=932) U Cocaine Metab Screen (OUOQIX=681) U Marijuana (THC) Screen (CUTOFF=50) Ethyl Alcohol 0.00 (0.00) gm% 11/30/18 Range/Units 17:00 WBC (4.23-9.07) K/mm3 RBC (4.63-6.08) M/mm3 Hgb (13.7-17.5) gm/L Hct (40.1-51.0) % MCV (79.0-92.2) fl MCH (25.7-32.2) pg MCHC (32.2-35.5) g/dl RDW Std Deviation (35.1-43.9) fL Plt Count (163-337) K/mm3 MPV (9.4-12.3) fl Neut % (Auto) (34.0-67.9) % Lymph % (Auto) (21.8-53.1) % [place] % (Auto) (5.3-12.2) % Eos % (Auto) (0.8-7.0) Baso % (Auto) (0.1-1.2) % Neut # (Auto) (1.78-5.38) K/mm3 Lymph # (Auto) (1.32-3.57) K/mm3 [place] # (Auto) (0.30-0.82) K/mm3 Eos # (Auto) (0.04-0.54) K/mm3 Baso # (Auto) (0.01-0.08) K/mm3 Manual Slide Review PT (9.5-12.1) SECONDS INR Sodium (136-145) mEq/L Potassium (3.5-5.1) mEq/L Chloride (98-107) mEq/L Carbon Dioxide (21-32) mEq/L Anion Gap (5-15) BUN (7-18) mg/dL Creatinine (0.7-1.3) mg/dL Est Cr Clr Drug Dosing mL/min Estimated GFR (MDRD) (>60) mL/min BUN/Creatinine Ratio (14-18) Glucose (74-106) mg/dL POC Glucose (70-105) mg/dL Calcium (8.5-10.1) mg/dL Total Bilirubin (0.2-1.0) mg/dL AST (15-37) U/L ALT (16-63) U/L Alkaline Phosphatase (46-116) U/L Ammonia 167 H (11-32) umol/L Troponin I (0.00-0.056) ng/mL Total Protein (6.4-8.2) g/dl Albumin (3.4-5.0) g/dl Globulin gm/dL Albumin/Globulin Ratio (1-2) Lipase (73-393) U/L Urine Color (Yellow) Urine Appearance (Clear) Urine pH (5.0-8.0) Ur Specific [place] (1.005-1.030) Urine Protein (Negative) Urine Glucose (UA) (Negative) Urine Ketones (Negative) Urine Occult Blood (Negative) Urine Nitrite (Negative) Urine Bilirubin (Negative) Urine Urobilinogen (0.2-1.0) Ur Leukocyte Esterase (Negative) Urine RBC (0-5) /hpf Urine WBC (0-5) /hpf Ur Squamous Epith Cells (0-5) /hpf Urine Bacteria (FEW) /hpf Urine Mucus (FEW) /hpf Urine Opiates Screen (PCTCUD=839) Ur Buprenorphine Scrn (CUTOFF=10) Ur Oxycodone Screen (NOS2MH=423) Urine Methadone Screen (KXQ4EZ=267) Ur Propoxyphene Screen (ZVTWZX=996) Ur Barbiturates Screen (ICWWOF=339) Ur Tricyclics Screen (ZLTHPX=828) Ur Phencyclidine Scrn (CUTOFF=25) Ur Amphetamine Screen (LRJAKG=457) U Methamphetamines Scrn (HHBFPP=816) U Benzodiazepines Scrn (YCGWNH=517) U Cocaine Metab Screen (MXKQZL=372) U Marijuana (THC) Screen (CUTOFF=50) Ethyl Alcohol (0.00) gm% Result Diagrams: 12/01/18 05:50 12/01/18 05:50 - Problem List (1) Altered mental status SNOMED Code(s): 337625849 ICD Code: R41.82 - ALTERED MENTAL STATUS, UNSPECIFIED Status: Acute Priority: High Current Visit: Yes Qualifiers: Altered mental status type: unspecified Qualified Code(s): R41.82 - Altered mental status, unspecified (2) Serum ammonia increased SNOMED Code(s): 9460080 ICD Code: E72.20 - DISORDER OF UREA CYCLE METABOLISM, UNSPECIFIED Status: Acute Priority: High Current Visit: Yes (3) Cirrhosis of liver SNOMED Code(s): 86546248 ICD Code: K74.60 - UNSPECIFIED CIRRHOSIS OF LIVER Status: Chronic Priority: High Current Visit: Yes (4) Iron deficiency anemia SNOMED Code(s): 14398364 ICD Code: D50.9 - IRON DEFICIENCY ANEMIA, UNSPECIFIED Status: Chronic Priority: Medium Current Visit: Yes Qualifiers: Iron deficiency anemia type: unspecified iron deficiency Qualified Code(s) : D50.9 - Iron deficiency anemia, unspecified (5) Hepatic encephalopathy SNOMED Code(s): 08713646 ICD Code: K72.90 - HEPATIC FAILURE, UNSPECIFIED WITHOUT COMA Status: Acute Priority: High Current Visit: No (6) Hyperammonemia SNOMED Code(s): 8638480 ICD Code: E72.20 - DISORDER OF UREA CYCLE METABOLISM, UNSPECIFIED Status: Acute Priority: High Current Visit: No (7) Hyperglycemia due to type 2 diabetes mellitus SNOMED Code(s): 324316310100486, 517619420415426 ICD Code: E11.65 - TYPE 2 DIABETES MELLITUS WITH HYPERGLYCEMIA Status: Acute Priority: High Current Visit: No Qualifiers: Diabetes mellitus fci insulin use: without fci use Qualified Code(s): E11.65 - Type 2 diabetes mellitus with hyperglycemia (8) Hypomagnesemia SNOMED Code(s): 571297738 ICD Code: E83.42 - HYPOMAGNESEMIA Status: Acute Priority: High Current Visit: No (9) Ascites SNOMED Code(s): 821527195 ICD Code: R18.8 - OTHER ASCITES Status: Chronic Priority: Medium Current Visit: No Qualifiers: Ascites type: other type Qualified Code(s): R18.8 - Other ascites (10) Cirrhosis of liver with ascites SNOMED Code(s): 99870345 ICD Code: K74.60 - UNSPECIFIED CIRRHOSIS OF LIVER Status: Chronic Priority: Medium Current Visit: No Qualifiers: Hepatic cirrhosis type: unspecified hepatic cirrhosis Qualified Code(s): K74.60 - Unspecified cirrhosis of liver (11) Non-insulin dependent type 2 diabetes mellitus SNOMED Code(s): 47639505 ICD Code: E11.9 - TYPE 2 DIABETES MELLITUS WITHOUT COMPLICATIONS Status: Chronic Current Visit: No (12) Pancytopenia, acquired SNOMED Code(s): 8721090 ICD Code: D61.818 - OTHER PANCYTOPENIA Status: Chronic Priority: High Current Visit: No (13) Hepatic encephalopathy SNOMED Code(s): 49482511 ICD Code: K72.90 - HEPATIC FAILURE, UNSPECIFIED WITHOUT COMA Status: Resolved Priority: High Current Visit: No Problem List Initiated/Reviewed/Updated: Yes Orders Last 24hrs: Active Orders 24 hr Category Date Time Status Patient Status [ADT] Routine ADT 11/30/18 19:51 Active Cardiac Monitoring [RC] . DIRECTED Care 11/30/18 16:50 Active Peripheral IV Care [RC] Q2HR Care 11/30/18 16:51 Active RASS Sedation Scale [RC] ASDIRECTED Care 11/30/18 19:00 Active RT Ventilator, Adult [RC] ASDIRECTED Care 11/30/18 19:24 Active CXR [Chest 1V Frontal] [CR] Stat Exams 11/30/18 19:39 Taken Chest 1V Frontal [CR] Stat Exams 11/30/18 19:01 Taken Chest 1V-Tube Placement Chk NC [CR] Stat Exams 11/30/18 19:57 Taken Head wo Cont [CT] Stat Exams 11/30/18 16:51 Taken Propofol [Diprivan 100 ML] 100 ml Med 11/30/18 19:00 Active IV TITRATE Sodium Chloride 0.9% [Normal Saline] 1,000 ml Med 11/30/18 17:00 Active IV ASDIRECTED Sodium Chloride 0.9% [Saline Flush] Med 11/30/18 16:50 Active 10 ml FLUSH ASDIRECTED PRN Desired Level of Sedation (RASS) [AST] Click To Edit Oth 11/30/18 19:00 Ordered Peripheral IV Insertion Adult [OM.PC] Stat Oth 11/30/18 16:50 Ordered Medication Orders Sodium Chloride (Normal Saline) 1,000 mls @ 125 mls/hr IV ASDIRECTED DHIRAJ Last Admin: 11/30/18 16:55 Dose: 125 mls/hr Propofol (Diprivan 100 Ml) 100 mls @ 7.348 mls/hr IV TITRATE DHIRAJ; Protocol Last Titration: 11/30/18 19:19 Dose: 45 mcg/kg/min, 33.067 mls/hr Admin: 11/30/18 19:14 Dose: 30 mcg/kg/min, 22.045 mls/hr Admin: 11/30/18 19:04 Dose: Not Given Sodium Chloride (Saline Flush) 10 ml FLUSH ASDIRECTED PRN PRN Reason: Keep Vein Open Last Admin: 11/30/18 16:56 Dose: 10 ml Assessment/Plan Comment:: Assessment/Plan: Acute: Hepatic Encephalopathy - Acute on Chronic - 2/2 Advanced Liver Disease and Medical Non-compliance - Ammonia level is 168 - Unsure if he is taking his home meds; reportedly just returned home from a long trip - Resume Home Meds as ordered - Rectal lactulose given in ED and on floor -> advanced to PO - Monitor Ammonia level - Avoid NSAIDs - MVI, Folic and Thiamine Supplement when able to swallow Hypomagnesemia - Magnesium-repace as needed - 2/2 inadequate intake Hyperglycemia in Type II DM -Hold home PO meds until mental status improves -> resume as ordered -Accu-check Q6H with ISS coverage -A1C 6.3 (improved from 7.4 on 08/01/19) S/P ETT on propofol drip, mild sedation; Nebs scheduled; NGT placed with low intermittent suction. -CXR q AM. HOB>[address] compare to 11/30/18 -CT obtained in ED 11/13/18 * 1. Mild small vessel ischemic demyelination change. * 2. Questionable diminished density within the cerebellum on both sides, worse on the left side possibly due to additional small vessel ischemic demyelination change but difficult to completely exclude early ischemic infarct. MRI study with diffusion would be helpful to confirm or rule out this possibility. * 3. No acute intracranial hemorrhage or other abnormality is seen. -MRI obtained 11/13/18: * 1. Mild small vessel ischemic demyelination change within the subcortical white matter. * 2. No abnormal signal is seen within the cerebellar hemispheres and prior CT finding most likely represents B Scott artifact. * 3. No acute diffusion abnormalities are seen Chronic: Advanced Liver Disease from Long Hx/o ETOH Abuse Hx/o Esophageal Varices S/p TIPS Pancytopenia 2/2 Liver Disease, Platelet and Hgb at baseline Hypoalbuminemia, 2/2 Liver Disease Albumin level at baseline DM2 Hyperbilubinemia, 2/2 Advanced Liver Disease Obesity GERD Chronic back pain GI bleeds hepatic encephalopathy hypothyroidism eczema Plan: ICU S/P intubation Routine AM labs Resume home meds when alert Dietary consult for weight and protein wasting management Aspiration precautions DVT PPx: SCDs (low platelet levels) Hold metformin until more alert -> resume PT/OT consult tnt powder worker/CM for discharge planning Code status: Full code; PCP: [facility] - Patient Instructions Diet: Diabetic Diet Activity: As Tolerated Notify Provider of: Fever, Increased Pain, Nausea and/or Vomiting - Discharge Plan *PRESCRIPTION DRUG MONITORING PROGRAM REVIEWED*: No *COPY OF PRESCRIPTION DRUG MONITORING REPORT IN PATIENT RAVI: No
[2018-11-30] MEDS ORDERED: Famotidine 20 MG/2 ML SDV IVPUSH ONE (21:56)
[2018-11-30] MEDS: Dextrose 5%-0.9% NaCl 1,000 ML IV SCH (23:01)
[2018-11-30] MEDS: Albuterol/Ipratropium 3.0-0.5 MG/3 ML Neb Soln NEB SCH (23:16)
[2018-12-01] MEDS ORDERED: Lactulose Soln 10 GM/15 ML 30 ML UD Cup PO ONE (01:00)
--- NOTE | 2018-12-01 05:51 | CR ---
Chest: Portable view of the chest was obtained. Comparison: Prior chest x-ray performed earlier on same day (7:41 PM). Endotracheal tube is seen. Tip lies at the level of the clavicles in satisfactory position. Nasogastric tube is seen. Tip of the NG tube lies past the gastroesophageal junction and felt to be within the stomach. Right-sided cardiac stent is noted. Heart is enlarged. Pulmonary vessels are congested. Bony structures are grossly intact. Impression: 1. Satisfactory appearance of endotracheal tube and nasogastric tube. 2. Cardiomegaly with pulmonary vascular congestion. Diagnostic code #3
--- NOTE | 2018-12-01 05:54 | CR ---
Chest: Portable supine view of the chest was obtained at 7:34 PM. Comparison: Prior chest x-ray of 11/14/17. Heart is enlarged. Pulmonary vessels are congested. Endotracheal tube is seen with tip lying at the level of the clavicles in satisfactory position. Right-sided cardiac stent is noted. Bony structures are grossly intact. Impression: 1. Findings suspicious for CHF. 2. Tip of endotracheal tube at the level of the clavicles in satisfactory position. Diagnostic code #3
[2018-12-01] MEDS: Albuterol/Ipratropium 3.0-0.5 MG/3 ML Neb Soln NEB SCH ×3 (05:56→20:09)
--- NOTE | 2018-12-01 06:27 | CR ---
Chest: Supine view of the chest was obtained at 7:41 PM. Comparison: Prior chest x-ray performed earlier in the same day (7:34 PM). Heart is enlarged. Pulmonary vessels are congested. Right-sided cardiac stent is seen. Tip of endotracheal tube lies at the level of the clavicles in satisfactory position. Tip of the nasogastric tube is difficult to see but appears to lie at the level of the diaphragm. Impression: 1. Endotracheal tube in satisfactory position with tip of nasogastric tube appearing to lie at the level of the diaphragm. 2. Pulmonary vascular congestion and mild cardiomegaly. Diagnostic code #3
--- NOTE | 2018-12-01 06:27 | CT ---
Head CT Technique: Multiple axial sections through the brain were obtained. Intravenous contrast was not utilized. Comparison: Prior head CT study of 11/13/18 and prior MRI brain of 11/13/18. Findings: Ventricles along with basal cisterns and sulci over the convexities are within normal limits for the patient's age. No abnormal parenchymal densities are seen. No evidence of intracranial hemorrhage. No midline shift or mass effect is seen. Minimal increased density within the subcutaneous tissues of the left frontal region are seen which are stable from prior study and is felt to be incidental. Bone window settings were reviewed which show no acute calvarial abnormality. Visualized sinuses show nothing acute. Impression: 1. No acute intracranial abnormality is seen. No significant change is seen from previous intracranial studies. Diagnostic code #1 I agree with preliminary report from [facility], finalized on 11/30/18, 7:13 PM Central Time
[2018-12-01] MEDS: Lactulose Soln 10 GM/15 ML 30 ML UD Cup PO SCH ×3 (07:54→20:45)
[2018-12-01] MEDS: Famotidine 20 MG/2 ML SDV IVPUSH SCH ×2 (08:19→20:45)
[2018-12-01] MEDS: Dextrose 5%-0.9% NaCl 1,000 ML IV SCH (09:20)
[2018-12-01] MEDS ORDERED: Magnesium Sulfate/Water 4 GM in Premix Bag 1 BAG IV ONE ×2 (09:29→20:00)
--- NOTE | 2018-12-01 09:37 | CR ---
Chest: Portable view of the chest was obtained. Comparison: Prior chest x-ray of 11/30/18. Heart is enlarged. Pulmonary vessels are increased. Tip of nasogastric tube is satisfactory in position. Nasogastric tube is seen which shows coiling within the stomach in satisfactory position. Bony structures are grossly intact. Impression: 1. Satisfactory position of endotracheal tube and nasogastric tube. 2. Stable cardiomegaly and pulmonary vascular congestion. Diagnostic code #3
[2018-12-01] MEDS ORDERED: Morphine 2 MG/ML Syringe IVPUSH ONE ×2 (11:17→16:45)
[2018-12-01] MEDS: Spironolactone 25 MG Tab PO SCH ×2 (14:30→20:45)
--- NOTE | 2018-12-01 18:15 | PCM.PN ---
- General Info Date of Service: 12/01/18 Subjective Update: Sedated on Mech Vent initially AC>>>SIMV, currently CPAP. Continue NGT Lactulose and Erythromycin, will add free water. Functional Status: Reports: Urinating - Review of Systems General: Reports: No Symptoms HEENT: Reports: No Symptoms Pulmonary: Reports: No Symptoms Cardiovascular: Reports: No Symptoms Gastrointestinal: Reports: No Symptoms Genitourinary: Reports: No Symptoms Musculoskeletal: Reports: No Symptoms Skin: Reports: No Symptoms Neurological: Reports: No Symptoms Psychiatric: Reports: No Symptoms - Patient Data Vitals - Most Recent: Last Vital Signs Temp 36.3 C 11/30/18 16:33 Pulse 79 11/30/18 20:20 Resp 18 12/01/18 05:57 BP 105/59 L 12/01/18 04:30 Pulse Ox 99 12/01/18 15:40 Weight - Most Recent: 122.47 kg I&O - Last 24 Hours: Intake & Output 12/01/18 12/01/18 12/01/18 06:59 14:59 22:59 Intake Total 1194 592 5232 Output Total 540 305 75 Balance 968 -120 1739 Lab Results Last 24 Hours: Laboratory Results - last 24 hr 12/01/18 12/01/18 12/01/18 Range/Units 00:03 05:49 05:50 WBC 3.24 L (4.23-9.07) K/mm3 RBC 2.74 L (4.63-6.08) M/mm3 Hgb 9.0 L D (13.7-17.5) gm/L Hct 26.8 L (40.1-51.0) % MCV 97.8 H (79.0-92.2) fl MCH 32.8 H (25.7-32.2) pg MCHC 33.6 (32.2-35.5) g/dl RDW Std Deviation 55.3 H (35.1-43.9) fL Plt Count 53 L (163-337) K/mm3 MPV 9.6 (9.4-12.3) fl Neut % (Auto) 65.4 (34.0-67.9) % Lymph % (Auto) 21.0 L (21.8-53.1) % Wilcox % (Auto) 11.1 (5.3-12.2) % Eos % (Auto) 2.2 (0.8-7.0) Baso % (Auto) 0.3 (0.1-1.2) % Neut # (Auto) 2.12 (1.78-5.38) K/mm3 Lymph # (Auto) 0.68 L (1.32-3.57) K/mm3 Wilcox # (Auto) 0.36 (0.30-0.82) K/mm3 Eos # (Auto) 0.07 (0.04-0.54) K/mm3 Baso # (Auto) 0.01 (0.01-0.08) K/mm3 Manual Slide Review Abnormal smear Puncture Site ABG pH (7.35-7.45) ABG pCO2 (35.0-45.0) mmHg ABG pO2 (80.0-100.0) mmHg ABG HCO3 (22.0-26.0) meq/L ABG O2 Saturation (96.0-97.0) % ABG Base Excess (-2-2.0) Fabian Test A-a Gradient mmHg O2 Delivery Device FiO2 (21.00-100.00) % Tidal Volume cc PEEP cmH20 Pressure Support cmH2O Blood Gas Comments Sodium (136-145) mEq/L Potassium (3.5-5.1) mEq/L Chloride (98-107) mEq/L Carbon Dioxide (21-32) mEq/L Anion Gap (5-15) BUN (7-18) mg/dL Creatinine (0.7-1.3) mg/dL Est Cr Clr Drug Dosing mL/min Estimated GFR (MDRD) (>60) mL/min BUN/Creatinine Ratio (14-18) Glucose (74-106) mg/dL POC Glucose 141 H 172 H (70-105) mg/dL Lactic Acid (0.4-2.0) mmol/L Calcium (8.5-10.1) mg/dL Magnesium (1.8-2.4) mg/dl Total Bilirubin (0.2-1.0) mg/dL Direct Bilirubin (0.0-0.2) mg/dl Indirect Bilirubin AST (15-37) U/L ALT (16-63) U/L Alkaline Phosphatase (46-116) U/L Ammonia (11-32) umol/L Total Protein (6.4-8.2) g/dl Albumin (3.4-5.0) g/dl Globulin gm/dL Albumin/Globulin Ratio (1-2) 12/01/18 12/01/18 12/01/18 Range/Units 05:50 05:50 06:03 WBC (4.23-9.07) K/mm3 RBC (4.63-6.08) M/mm3 Hgb (13.7-17.5) gm/L Hct (40.1-51.0) % MCV (79.0-92.2) fl MCH (25.7-32.2) pg MCHC (32.2-35.5) g/dl RDW Std Deviation (35.1-43.9) fL Plt Count (163-337) K/mm3 MPV (9.4-12.3) fl Neut % (Auto) (34.0-67.9) % Lymph % (Auto) (21.8-53.1) % Wilcox % (Auto) (5.3-12.2) % Eos % (Auto) (0.8-7.0) Baso % (Auto) (0.1-1.2) % Neut # (Auto) (1.78-5.38) K/mm3 Lymph # (Auto) (1.32-3.57) K/mm3 Wilcox # (Auto) (0.30-0.82) K/mm3 Eos # (Auto) (0.04-0.54) K/mm3 Baso # (Auto) (0.01-0.08) K/mm3 Manual Slide Review Puncture Site Lt radial ABG pH 7.38 (7.35-7.45) ABG pCO2 31.8 L (35.0-45.0) mmHg ABG pO2 76.0 L (80.0-100.0) mmHg ABG HCO3 18.4 L (22.0-26.0) meq/L ABG O2 Saturation 96.8 (96.0-97.0) % ABG Base Excess -5.4 L (-2-2.0) Fabian Test Positive A-a Gradient 140 mmHg O2 Delivery Device Ventilator FiO2 40.00 (21.00-100.00) % Tidal Volume 500.0 cc PEEP 5.0 cmH20 Pressure Support cmH2O Blood Gas Comments Sodium 141 (136-145) mEq/L Potassium 3.5 (3.5-5.1) mEq/L Chloride 113 H (98-107) mEq/L Carbon Dioxide 20 L (21-32) mEq/L Anion Gap 11.5 (5-15) BUN 12 (7-18) mg/dL Creatinine 1.0 (0.7-1.3) mg/dL Est Cr Clr Drug Dosing 82.13 mL/min Estimated GFR (MDRD) > 60 (>60) mL/min BUN/Creatinine Ratio 12.0 L (14-18) Glucose 173 H (74-106) mg/dL POC Glucose (70-105) mg/dL Lactic Acid (0.4-2.0) mmol/L Calcium 7.7 L (8.5-10.1) mg/dL Magnesium 1.5 L (1.8-2.4) mg/dl Total Bilirubin (0.2-1.0) mg/dL Direct Bilirubin (0.0-0.2) mg/dl Indirect Bilirubin AST (15-37) U/L ALT (16-63) U/L Alkaline Phosphatase (46-116) U/L Ammonia 118 H (11-32) umol/L Total Protein (6.4-8.2) g/dl Albumin (3.4-5.0) g/dl Globulin gm/dL Albumin/Globulin Ratio (1-2) 12/01/18 12/01/18 12/01/18 Range/Units 10:07 12:28 14:03 WBC (4.23-9.07) K/mm3 RBC (4.63-6.08) M/mm3 Hgb (13.7-17.5) gm/L Hct (40.1-51.0) % MCV (79.0-92.2) fl MCH (25.7-32.2) pg MCHC (32.2-35.5) g/dl RDW Std Deviation (35.1-43.9) fL Plt Count (163-337) K/mm3 MPV (9.4-12.3) fl Neut % (Auto) (34.0-67.9) % Lymph % (Auto) (21.8-53.1) % Wilcox % (Auto) (5.3-12.2) % Eos % (Auto) (0.8-7.0) Baso % (Auto) (0.1-1.2) % Neut # (Auto) (1.78-5.38) K/mm3 Lymph # (Auto) (1.32-3.57) K/mm3 Wilcox # (Auto) (0.30-0.82) K/mm3 Eos # (Auto) (0.04-0.54) K/mm3 Baso # (Auto) (0.01-0.08) K/mm3 Manual Slide Review Puncture Site Lt radial Lt radial ABG pH 7.41 7.42 (7.35-7.45) ABG pCO2 27.6 L 25.0 L (35.0-45.0) mmHg ABG pO2 71.0 L 68.0 L (80.0-100.0) mmHg ABG HCO3 17.1 L 16.1 L (22.0-26.0) meq/L ABG O2 Saturation 94.8 L 97.2 H (96.0-97.0) % ABG Base Excess -6.1 L -6.7 L (-2-2.0) Fabian Test A-a Gradient 119 124 mmHg O2 Delivery Device Ventilator Ventilator FiO2 35.00 35.00 (21.00-100.00) % Tidal Volume 500.0 cc PEEP 5.0 5.0 cmH20 Pressure Support 10.0 5.0 cmH2O Blood Gas Comments Pt on cpap/ps Sodium (136-145) mEq/L Potassium (3.5-5.1) mEq/L Chloride (98-107) mEq/L Carbon Dioxide (21-32) mEq/L Anion Gap (5-15) BUN (7-18) mg/dL Creatinine (0.7-1.3) mg/dL Est Cr Clr Drug Dosing mL/min Estimated GFR (MDRD) (>60) mL/min BUN/Creatinine Ratio (14-18) Glucose (74-106) mg/dL POC Glucose 207 H (70-105) mg/dL Lactic Acid (0.4-2.0) mmol/L Calcium (8.5-10.1) mg/dL Magnesium (1.8-2.4) mg/dl Total Bilirubin (0.2-1.0) mg/dL Direct Bilirubin (0.0-0.2) mg/dl Indirect Bilirubin AST (15-37) U/L ALT (16-63) U/L Alkaline Phosphatase (46-116) U/L Ammonia (11-32) umol/L Total Protein (6.4-8.2) g/dl Albumin (3.4-5.0) g/dl Globulin gm/dL Albumin/Globulin Ratio (1-2) 12/01/18 12/01/18 Range/Units 14:30 14:30 WBC (4.23-9.07) K/mm3 RBC (4.63-6.08) M/mm3 Hgb (13.7-17.5) gm/L Hct (40.1-51.0) % MCV (79.0-92.2) fl MCH (25.7-32.2) pg MCHC (32.2-35.5) g/dl RDW Std Deviation (35.1-43.9) fL Plt Count (163-337) K/mm3 MPV (9.4-12.3) fl Neut % (Auto) (34.0-67.9) % Lymph % (Auto) (21.8-53.1) % Wilcox % (Auto) (5.3-12.2) % Eos % (Auto) (0.8-7.0) Baso % (Auto) (0.1-1.2) % Neut # (Auto) (1.78-5.38) K/mm3 Lymph # (Auto) (1.32-3.57) K/mm3 Wilcox # (Auto) (0.30-0.82) K/mm3 Eos # (Auto) (0.04-0.54) K/mm3 Baso # (Auto) (0.01-0.08) K/mm3 Manual Slide Review Puncture Site ABG pH (7.35-7.45) ABG pCO2 (35.0-45.0) mmHg ABG pO2 (80.0-100.0) mmHg ABG HCO3 (22.0-26.0) meq/L ABG O2 Saturation (96.0-97.0) % ABG Base Excess (-2-2.0) Fabian Test A-a Gradient mmHg O2 Delivery Device FiO2 (21.00-100.00) % Tidal Volume cc PEEP cmH20 Pressure Support cmH2O Blood Gas Comments Sodium (136-145) mEq/L Potassium (3.5-5.1) mEq/L Chloride (98-107) mEq/L Carbon Dioxide (21-32) mEq/L Anion Gap (5-15) BUN (7-18) mg/dL Creatinine (0.7-1.3) mg/dL Est Cr Clr Drug Dosing mL/min Estimated GFR (MDRD) (>60) mL/min BUN/Creatinine Ratio (14-18) Glucose (74-106) mg/dL POC Glucose (70-105) mg/dL Lactic Acid 2.2 H (0.4-2.0) mmol/L Calcium (8.5-10.1) mg/dL Magnesium (1.8-2.4) mg/dl Total Bilirubin 3.9 H (0.2-1.0) mg/dL Direct Bilirubin 1.40 H (0.0-0.2) mg/dl Indirect Bilirubin 2.50 AST 33 (15-37) U/L ALT 30 (16-63) U/L Alkaline Phosphatase 90 (46-116) U/L Ammonia (11-32) umol/L Total Protein 6.5 (6.4-8.2) g/dl Albumin 1.8 L (3.4-5.0) g/dl Globulin 4.7 gm/dL Albumin/Globulin Ratio 0.4 L (1-2) Med Orders - Current: Current Medications Albuterol/Ipratropium (Duoneb 3.0-0.5 Mg/3 Ml) 3 ml NEB Q8HRRT [facility] Last Admin: 12/01/18 13:34 Dose: 3 ml Erythromycin (Jed-Tab) 250 mg PO Q8HR [facility] Last Admin: 12/01/18 14:30 Dose: 250 mg Famotidine (Pepcid) 20 mg IVPUSH BID [facility] Last Admin: 12/01/18 08:19 Dose: 20 mg Furosemide (Lasix) 20 mg IVPUSH NOW ONE Stop: 12/01/18 23:01 Propofol (Diprivan 100 Ml) 100 mls @ 7.348 mls/hr IV TITRATE [facility]IRAJ; Protocol Last Titration: 12/01/18 11:09 Dose: 0 mcg/kg/min, 0 mls/hr Magnesium Sulfate 4 gm/ Premix 50 mls @ 12.5 mls/hr IV ONETIME ONE Stop: 12/01/18 23:59 Potassium Chloride/Sodium Chloride (Normal Saline With 20 Meq Kcl) 1,000 mls @ 100 mls/hr IV ASDIRECTED [facility] Lactulose (Cephulac) 45 gm PO Q6H [facility] Last Admin: 12/01/18 14:30 Dose: 45 gm Rifaximin (Xifaxan) 550 mg PO BID [facility] Sodium Chloride (Saline Flush) 10 ml FLUSH ASDIRECTED PRN PRN Reason: Keep Vein Open Last Admin: 11/30/18 16:56 Dose: 10 ml Spironolactone (Aldactone) 12.5 mg PO BID [facility] Last Admin: 12/01/18 14:30 Dose: 12.5 mg Discontinued Medications Etomidate (Amidate) 30 mg IVPUSH ONETIME ONE Stop: 11/30/18 18:39 Last Admin: 11/30/18 18:52 Dose: 30 mg Famotidine (Pepcid) 20 mg IVPUSH ONETIME ONE Stop: 11/30/18 21:57 Last Admin: 11/30/18 22:26 Dose: 20 mg Sodium Chloride (Normal Saline) 1,000 mls @ 125 mls/hr IV ASDIRECTED [facility] Last Admin: 11/30/18 16:55 Dose: 125 mls/hr Propofol (Diprivan 100 Ml) Confirm Administered Dose 100 mls @ as directed .ROUTE .STK-MED ONE Stop: 11/30/18 19:02 Last Admin: 11/30/18 19:15 Dose: Not Given Dextrose/Sodium Chloride (Dextrose 5%-Normal Saline) 1,000 mls @ 100 mls/hr IV ASDIRECTED [facility] Last Admin: 12/01/18 09:20 Dose: 100 mls/hr Magnesium Sulfate 4 gm/ Premix 50 mls @ 12.5 mls/hr IV ONETIME ONE Stop: 12/01/18 13:28 Last Admin: 12/01/18 09:50 Dose: 12.5 mls/hr Lactulose (Cephulac) 60 gm NGTUBE ONETIME ONE Stop: 11/30/18 19:01 Last Admin: 11/30/18 19:52 Dose: 60 gm Lactulose (Cephulac) 60 gm PO ONETIME ONE Stop: 12/01/18 01:01 Last Admin: 12/01/18 01:00 Dose: 60 gm Midazolam HCl (Versed 1 Mg/Ml) 5 mg IVPUSH ONETIME ONE Stop: 11/30/18 19:30 Last Admin: 11/30/18 19:32 Dose: 5 mg Morphine Sulfate (Morphine) 1 mg IVPUSH ONETIME ONE Stop: 12/01/18 11:18 Last Admin: 12/01/18 11:37 Dose: 1 mg Morphine Sulfate (Morphine) 2 mg IVPUSH ONETIME ONE Stop: 12/01/18 16:46 Last Admin: 12/01/18 16:52 Dose: 2 mg Succinylcholine Chloride (Quelicin) 180 mg IV ONETIME ONE Stop: 11/30/18 18:46 Last Admin: 11/30/18 18:53 Dose: 180 mg - Exam Quality Assessment: Supplemental Oxygen, Urine Catheter, DVT Prophylaxis General: Obtunded HEENT: Pupils Equal, Pupils Reactive Neck: Trachea Midline, No JVD Lungs: Normal Respiratory Effort Cardiovascular: Regular Rate, Regular Rhythm GI/Abdominal Exam: Normal Bowel Sounds, Soft, Non-Tender, No Distention (Male) Exam: Deferred Back Exam: Normal Inspection Extremities: Normal Inspection, Pedal Edema, Slow Capillary Refill (3+ bilaterally) Skin: Warm Neurological: Cranial Nerves Intact - Problem List & Annotations (1) Altered mental status SNOMED Code(s): 423076114 Code(s): R41.82 - ALTERED MENTAL STATUS, UNSPECIFIED Status: Acute Priority: High Current Visit: Yes Qualifiers: Altered mental status type: unspecified Qualified Code(s): R41.82 - Altered mental status, unspecified (2) Serum ammonia increased SNOMED Code(s): 5434242 Code(s): E72.20 - DISORDER OF UREA CYCLE METABOLISM, UNSPECIFIED Status: Acute Priority: High Current Visit: Yes (3) Cirrhosis of liver SNOMED Code(s): 40120508 Code(s): K74.60 - UNSPECIFIED CIRRHOSIS OF LIVER Status: Chronic Priority : High Current Visit: Yes (4) Iron deficiency anemia SNOMED Code(s): 22740403 Code(s): D50.9 - IRON DEFICIENCY ANEMIA, UNSPECIFIED Status: Chronic Priority: Medium Current Visit: Yes Qualifiers: Iron deficiency anemia type: unspecified iron deficiency Qualified Code(s) : D50.9 - Iron deficiency anemia, unspecified (5) Hepatic encephalopathy SNOMED Code(s): 49921528 Code(s): K72.90 - HEPATIC FAILURE, UNSPECIFIED WITHOUT COMA Status: Acute Priority: High Current Visit: No (6) Hyperammonemia SNOMED Code(s): 1401597 Code(s): E72.20 - DISORDER OF UREA CYCLE METABOLISM, UNSPECIFIED Status: Acute Priority: High Current Visit: No (7) Hyperglycemia due to type 2 diabetes mellitus SNOMED Code(s): 495689633333099, 286696970845436 Code(s): E11.65 - TYPE 2 DIABETES MELLITUS WITH HYPERGLYCEMIA Status: Acute Priority: High Current Visit: No Qualifiers: Diabetes mellitus skilled nursing insulin use: without long goods drier use Qualified Code(s): E11.65 - Type 2 diabetes mellitus with hyperglycemia (8) Hypomagnesemia SNOMED Code(s): 347809109 Code(s): E83.42 - HYPOMAGNESEMIA Status: Acute Priority: High Current Visit: No (9) Ascites SNOMED Code(s): 481684482 Code(s): R18.8 - OTHER ASCITES Status: Chronic Priority: Medium Current Visit: No Qualifiers: Ascites type: other type Qualified Code(s): R18.8 - Other ascites (10) Cirrhosis of liver with ascites SNOMED Code(s): 16050546 Code(s): K74.60 - UNSPECIFIED CIRRHOSIS OF LIVER Status: Chronic Priority : Medium Current Visit: No Qualifiers: Hepatic cirrhosis type: unspecified hepatic cirrhosis Qualified Code(s): K74.60 - Unspecified cirrhosis of liver (11) Non-insulin dependent type 2 diabetes mellitus SNOMED Code(s): 85527727 Code(s): E11.9 - TYPE 2 DIABETES MELLITUS WITHOUT COMPLICATIONS Status: Chronic Current Visit: No (12) Pancytopenia, acquired SNOMED Code(s): 9363984 Code(s): D61.818 - OTHER PANCYTOPENIA Status: Chronic Priority: High Current Visit: No (13) Hepatic encephalopathy SNOMED Code(s): 61656168 Code(s): K72.90 - HEPATIC FAILURE, UNSPECIFIED WITHOUT COMA Status: Resolved Priority: High Current Visit: No - Problem List Review Problem List Initiated/Reviewed/Updated: Yes - My Orders Last 24 Hours: My Active Orders 11/30/18 21:16 Accu Check [Blood Glucose Check, Bedside] [RC] Q6HR 11/30/18 21:19 RT Aerosol Therapy [RC] ASDIRECTED 11/30/18 21:20 Antiembolic Devices [RC] BID HOB [Head of Bed Elevation] [RC] ASDIRECTED SCD [Sequential Compression Device] [OM.PC] Routine 11/30/18 21:22 Consult to Case Management/Metal Bonding Press Operator [CONS] Routine 11/30/18 22:00 Erythromycin Base [Jed-Tab] 250 mg PO Q8HR 11/30/18 23:00 Albuterol/Ipratropium [DuoNeb 3.0-0.5 MG/3 ML] 3 ml NEB Q8HRRT 11/30/18 23:28 Code Status [Resuscitation Status] Routine 12/01/18 06:00 RT Arterial Blood Gases, ABG [RC] Click to Edit 12/01/18 08:00 Lactulose [Cephulac] 45 gm PO Q6H 12/01/18 09:00 Famotidine [Pepcid] 20 mg IVPUSH BID 12/01/18 14:00 Communication Order [RC] Q6HR Spironolactone [Aldactone] 12.5 mg PO BID 12/01/18 18:30 Sodium Chloride 0.9% with KCl 20 mEq @ 100 mL/Hr (1000 mL) NS + KCl 20mEq/L [ Normal Saline with 20 mEq KCl] 1,000 ml IV ASDIRECTED 12/01/18 20:00 Magnesium Sulfate/Water [Magnesium Sulfate 4 GM in Water 50 ML] 4 gm Premix Bag 1 bag IV ONETIME 12/01/18 21:00 Rifaximin [Xifaxan] 550 mg PO BID 12/01/18 22:00 Insulin Lispro [HumaLOG] See Protocol SUBCUT QIDACANDBED 12/01/18 23:00 Furosemide [Lasix] 20 mg IVPUSH NOW ONE 12/02/18 05:00 AMMONIA VENOUS [CHEM] DAILY BASIC METABOLIC PANEL,BMP [CHEM] DAILY CBC WITH AUTO DIFF [HEME] DAILY MAGNESIUM [CHEM] DAILY 12/02/18 07:00 CXR [Chest 1V Frontal] [CR] DAILY 12/03/18 05:00 AMMONIA VENOUS [CHEM] DAILY BASIC METABOLIC PANEL,BMP [CHEM] DAILY CBC WITH AUTO DIFF [HEME] DAILY MAGNESIUM [CHEM] DAILY 12/04/18 05:00 AMMONIA VENOUS [CHEM] DAILY BASIC METABOLIC PANEL,BMP [CHEM] DAILY CBC WITH AUTO DIFF [HEME] DAILY MAGNESIUM [CHEM] DAILY 12/05/18 05:00 AMMONIA VENOUS [CHEM] DAILY BASIC METABOLIC PANEL,BMP [CHEM] DAILY CBC WITH AUTO DIFF [HEME] DAILY MAGNESIUM [CHEM] DAILY - Plan Plan:: Assessment/Plan: Acute: Hepatic Encephalopathy - Acute on Chronic - 2/2 Advanced Liver Disease and Medical Non-compliance - Ammonia level is 168 - Unsure if he is taking his home meds; reportedly just returned home from a long trip - Resume Home Meds as ordered - Rectal lactulose given in ED and on floor -> advanced to PO - Monitor Ammonia level - Avoid NSAIDs - MVI, Folic and Thiamine Supplement when able to swallow Hypomagnesemia - Magnesium-repace as needed - 2/2 inadequate intake Hyperglycemia in Type II DM -Hold home PO meds until mental status improves -> resume as ordered -Accu-check Q6H with ISS coverage -A1C 6.3 (improved from 7.4 on 08/01/19) S/P ETT on propofol drip, mild sedation; Nebs scheduled; NGT placed with low intermittent suction. -CXR q AM. HOB>[address] compare to 11/30/18 -CT obtained in ED 11/13/18 * 1. Mild small vessel ischemic demyelination change. * 2. Questionable diminished density within the cerebellum on both sides, worse on the left side possibly due to additional small vessel ischemic demyelination change but difficult to completely exclude early ischemic infarct. MRI study with diffusion would be helpful to confirm or rule out this possibility. * 3. No acute intracranial hemorrhage or other abnormality is seen. -MRI obtained 11/13/18: * 1. Mild small vessel ischemic demyelination change within the subcortical white matter. * 2. No abnormal signal is seen within the cerebellar hemispheres and prior CT finding most likely represents B Scott artifact. * 3. No acute diffusion abnormalities are seen Chronic: Advanced Liver Disease from Long Hx/o ETOH Abuse Hx/o Esophageal Varices S/p TIPS Pancytopenia 2/2 Liver Disease, Platelet and Hgb at baseline Hypoalbuminemia, 2/2 Liver Disease Albumin level at baseline DM2 Hyperbilubinemia, 2/2 Advanced Liver Disease Obesity GERD Chronic back pain GI bleeds hepatic encephalopathy hypothyroidism eczema Plan: ICU S/P intubation Routine AM labs Resume home meds when alert Dietary consult for weight and protein wasting management Aspiration precautions DVT PPx: SCDs (low platelet levels) Hold metformin until more alert -> resume PT/OT consult show worker/CM for discharge planning Code status: Full code; PCP: [facility] - Patient Instructions Diet: Diabetic Diet Activity: As Tolerated Notify Provider of: Fever, Increased Pain, Nausea and/or Vomiting - Discharge Plan *PRESCRIPTION DRUG MONITORING PROGRAM REVIEWED*: No *COPY OF PRESCRIPTION DRUG MONITORING REPORT IN PATIENT RAVI: No
[2018-12-01] MEDS ORDERED: NS + KCl 20mEq/L 500 ML IV SCH (18:30)
[2018-12-01] MEDS ORDERED: Piperacillin/Tazobactam 4.5 GM in Sodium Chloride 0.9% 100 ML IV ONE (18:45)
[2018-12-01] MEDS: Rifaximin 550 MG Tab PO SCH (20:45)
[2018-12-01] MEDS: NS + KCl 20mEq/L 1,000 ML IV SCH (21:05)
[2018-12-01] MEDS ORDERED: Furosemide 20 MG/2 ML VIAL IVPUSH ONE (23:00)
[2018-12-01] MEDS: Insulin Lispro 100 Units/ML 3 ML Vial SUBCUT SCH (23:21)
[2018-12-02] MEDS: LORazepam 2 MG/ML SDV IVPUSH PRN ×2 (00:43→09:55)
[2018-12-02] MEDS: NS + KCl 20mEq/L 1,000 ML IV SCH ×3 (01:03→13:59)
[2018-12-02] MEDS: Piperacillin/Tazobactam 4.5 GM in Sodium Chloride 0.9% 100 ML IV SCH ×3 (02:11→18:26)
[2018-12-02] MEDS: Morphine 2 MG/ML Syringe IVPUSH PRN ×2 (02:13→09:54)
[2018-12-02] MEDS: Lactulose Soln 10 GM/15 ML 30 ML UD Cup PO SCH ×4 (02:13→20:47)
[2018-12-02] MEDS ORDERED: Sodium Chloride 0.9% 500 ML IV ONE (05:26)
[2018-12-02] MEDS ORDERED: Dextrose 5%-0.9% NaCl 1,000 ML IV SCH (05:30)
[2018-12-02] MEDS ORDERED: Sodium Chloride 0.9% 500 ML ONE (05:44)
[2018-12-02] MEDS: Insulin Lispro 100 Units/ML 3 ML Vial SUBCUT SCH ×3 (05:51→18:26)
[2018-12-02] MEDS ORDERED: Levofloxacin/Dextrose 5%-Water 750 MG in Premix Bag 1 BAG IV ONE ×2 (06:00→12:00)
[2018-12-02] MEDS ORDERED: Norepinephrine 4 MG in Dextrose 5% in Water 246 ML IV SCH ×2 (06:15)
[2018-12-02] MEDS: Albuterol/Ipratropium 3.0-0.5 MG/3 ML Neb Soln NEB SCH ×3 (06:19→20:38)
[2018-12-02] MEDS ORDERED: Iopamidol 755 Mg/ML 200 ML Bottle IV ONE ×2 (07:39→14:18)
[2018-12-02] MEDS ORDERED: Sodium Chloride 0.9% 10 ML Syringe FLUSH ONE (07:39)
--- NOTE | 2018-12-02 08:24 | CR ---
Chest: Portable view of the chest was obtained. Comparison: Prior chest x-ray of 12/01/18. Heart is enlarged. Pulmonary vessels remain congested. Endotracheal tube and nasogastric tube are felt to be stable. Bony structures are grossly intact. Impression: 1. Findings as noted above. No significant change from previous chest chest x-ray is seen. Diagnostic code #3
[2018-12-02] MEDS ORDERED: Sodium Chloride 0.9% 2,000 ML IV ONE (08:42)
--- NOTE | 2018-12-02 09:39 | CT ---
Head CT Technique: Multiple axial sections through the brain were obtained. Intravenous contrast was not utilized. Comparison: Prior head CT study of 11/30/18 and prior MRI brain of 11/13/18. Findings: Ventricles along with basal cisterns and sulci over the convexities appear within normal limits for the patient's age. Minimal basal ganglia calcification is seen. No other abnormal parenchymal densities are seen. No evidence of intracranial hemorrhage. No midline shift or mass effect is seen. Bone window settings were reviewed which show no acute calvarial abnormality. Visualized paranasal sinuses are clear. Minimal fluid is seen within the right mastoid sinus most likely representing retained secretion. Impression: 1. Minimal finding within the right mastoid sinus most likely incidental. 2. No acute intracranial abnormality is identified on noncontrast head CT exam. Diagnostic code #2
--- NOTE | 2018-12-02 09:43 | CT ---
CT chest Technique: Multiple axial sections were obtained from above the lung apices inferiorly through the lung bases. Intravenous contrast was utilized. Findings: Stent is noted within the right main pulmonary artery extending into a lower lobe segmental branch. Parenchymal densities are seen within both lung bases, worse on the right side. Small right sided pleural effusion is noted with trace left sided pleural effusion. Heart is enlarged. Pulmonary vessels appear congested. Small mediastinal lymph nodes are seen which are believed to be within normal limits. Thoracic aorta shows no aneurysm. Mild coronary artery calcification is seen. Gynecomastia is identified on both sides. Bone window settings show scattered degenerative change within the spine with no acute osseous abnormality being seen. Endotracheal tube is seen which lies above the latasha in satisfactory position. Impression: 1. Parenchymal densities within both lung bases, worse on the right side most likely representing areas of pneumonia. Pulmonary vessels are also felt to be congested. 2. Small right sided pleural effusion with trace left-sided pleural effusion. 3. Stent noted within the right main pulmonary artery extending into a segmental branch within the right lower lung. 4. Other incidental findings as noted above. Diagnostic code #3 CT abdomen and pelvis Technique: Multiple axial sections were obtained from above the dome of the diaphragm inferiorly through the pubic symphysis. Intravenous contrast was utilized. Comparison: Prior CT abdomen and pelvis exam of 06/13/16. Findings: Liver is small in size having the appearance of cirrhosis. Gallstones which are calcified are seen within the gallbladder. No discrete intraparenchymal abnormality is appreciated within the liver. Spleen size is enlarged. Spleen has a length of 17.7 cm compatible with change from portal hypertension. This is noted on prior exam. Adrenal glands show no discrete nodule. Nasogastric tube is seen coiled within the stomach. TIPS stent is present. Kidneys show no hydronephrosis or mass. Delayed images show contrast excretion from both kidneys into nondilated ureters. Minimal contrast is noted within the bladder. Bladder shows a Carey catheter in place. Pancreas is poorly seen due to motion but shows no discrete abnormality. Aorta shows no aneurysm. No retroperitoneal adenopathy or mesenteric abnormalities are seen. No pelvic mass or adenopathy is seen. There is some fluid being seen within the left inguinal region extending into the scrotum compatible with fluid-filled inguinal hernia. No bowel dilatation is seen. Very minimal ascites noted around the liver. Bone window settings were reviewed which show severe disc space narrowing at L3-L4 and L4-L5 with degenerative sclerosis and osteophytes. Spondylolytic defects are seen at L3-L4 and L4-L5. Impression: 1. Cirrhotic change within the liver with splenomegaly. Minimal pleural effusion seen around a portion of the liver. 2. Other incidental findings as noted above. Nothing acute is appreciated. Diagnostic code #3
[2018-12-02] MEDS: Famotidine 20 MG/2 ML SDV IVPUSH SCH ×2 (10:14→20:46)
[2018-12-02] MEDS: Rifaximin 550 MG Tab PO SCH ×2 (10:14→20:47)
[2018-12-02] MEDS: Spironolactone 25 MG Tab PO SCH ×2 (10:27→20:46)
--- NOTE | 2018-12-02 10:44 | PCM.SN ---
- Free Text/Narrative Note: Date: 12-02-18 Start: 919 Stop: 1014 Time Out: 919 Procedure: PICC Line placement. Anesthesia requested for PICC line placement. Patients family educated on risk/ benefits, allergies reviewed, medication list reviewed, family agrees to proceed , consent obtained. Patient positioned in supine position. IV access attempted times four to right arm with no success. Sterile drape placed, along with sterile gloves, sterile gown, and masks noted. Right arm prepped by 3 chloropreps and IV access attempted times four to right arm with no success. Vein was accessed by a 20 gauge angio catheter left arm. Guide wire passed with ease and microintroducer kit used and 4 mohawk single lumen PICC advanced and secured at 55 cm at the skin. Good blood return, and site flushed with 10 mls of normal saline with ease. PICC line placement verified with portably chest xray. Waiting results of radiology. Report and orders given to RN. MicroIntroducer kit used: [employer] NXT PICC 4 mohawk catheter single lumen advanced without difficulties noted. REF: [id number] LOT: [id number] EXP: 2019-04-11 Tegaderm applied, with stat-lock securing device, date and time noted. David Capone CRNA
--- NOTE | 2018-12-02 11:18 | CR ---
Chest: Portable view of the chest was obtained. Comparison: Prior chest x-ray of 12/02/18 (7:27 AM). Heart size is slightly prominent. Tortuous thoracic aorta is seen. Pulmonary vessels are slightly congested. Continuing parenchymal density within the right base. Endotracheal tube is stable. Nasogastric tube is felt to be stable. Left-sided PICC line is seen. Tip is difficult to see but felt to lie within the superior vena cava in satisfactory position. Impression: 1. Left-sided PICC line. As mentioned above, tip is difficult to see but felt to lie within the superior vena cava in satisfactory position. 2. Other portions of the chest are stable. Diagnostic code #3
[2018-12-02] MEDS: Dextrose 5%-0.9% NaCl 1,000 ML IV SCH ×2 (12:16→22:32)
--- NOTE | 2018-12-02 13:16 | PCM.PN ---
- General Info Date of Service: 12/02/18 Admission Dx/Problem (Free Text): Admission Diagnosis/Problem Admission Diagnosis/Problem Cirrhosis of liver Subjective Update: Follow Up Functional Status: Reports: Pain Controlled. Denies: New Symptoms - Review of Systems General: Denies: Fever, Chills Skin: Reports: Other (jaundice). Denies: Cyanosis Systems Review Comment:: Unable to obtain. He is sedated and intubated on mechanical ventilation. His Hgb is 9.6. Afebrile with slightly elevated WBC level. His LA is noted at 3.6 with Total Bilirubin of 4.4. - Patient Data Vitals - Most Recent: Last Vital Signs Temp 37.0 C 12/02/18 12:00 Pulse 87 12/02/18 12:00 Resp 17 12/02/18 12:00 BP 96/50 L 12/02/18 12:00 Pulse Ox 100 12/02/18 12:00 Weight - Most Recent: 122.47 kg I&O - Last 24 Hours: Intake & Output 12/01/18 12/02/18 12/02/18 22:59 06:59 14:59 Intake Total 1914 2143 Output Total 240 575 225 Balance 1674 1568 -225 Lab Results Last 24 Hours: Laboratory Results - last 24 hr 12/01/18 12/01/18 12/01/18 Range/Units 14:03 14:30 14:30 WBC (4.23-9.07) K/mm3 RBC (4.63-6.08) M/mm3 Hgb (13.7-17.5) gm/L Hct (40.1-51.0) % MCV (79.0-92.2) fl MCH (25.7-32.2) pg MCHC (32.2-35.5) g/dl RDW Std Deviation (35.1-43.9) fL Plt Count (163-337) K/mm3 MPV (9.4-12.3) fl Neut % (Auto) (34.0-67.9) % Lymph % (Auto) (21.8-53.1) % Kinney % (Auto) (5.3-12.2) % Eos % (Auto) (0.8-7.0) Baso % (Auto) (0.1-1.2) % Neut # (Auto) (1.78-5.38) K/mm3 Lymph # (Auto) (1.32-3.57) K/mm3 Kinney # (Auto) (0.30-0.82) K/mm3 Eos # (Auto) (0.04-0.54) K/mm3 Baso # (Auto) (0.01-0.08) K/mm3 Manual Slide Review Puncture Site Lt radial ABG pH 7.42 (7.35-7.45) ABG pCO2 25.0 L (35.0-45.0) mmHg ABG pO2 68.0 L (80.0-100.0) mmHg ABG HCO3 16.1 L (22.0-26.0) meq/L ABG O2 Saturation 97.2 H (96.0-97.0) % ABG Base Excess -6.7 L (-2-2.0) A-a Gradient 124 mmHg O2 Delivery Device Ventilator FiO2 35.00 (21.00-100.00) % Tidal Volume cc PEEP 5.0 cmH20 Pressure Support 5.0 cmH2O Blood Gas Comments Pt on cpap/ps Sodium (136-145) mEq/L Potassium (3.5-5.1) mEq/L Chloride (98-107) mEq/L Carbon Dioxide (21-32) mEq/L Anion Gap (5-15) BUN (7-18) mg/dL Creatinine (0.7-1.3) mg/dL Est Cr Clr Drug Dosing mL/min Estimated GFR (MDRD) (>60) mL/min BUN/Creatinine Ratio (14-18) Glucose (74-106) mg/dL POC Glucose (70-105) mg/dL Lactic Acid 2.2 H (0.4-2.0) mmol/L Calcium (8.5-10.1) mg/dL Magnesium (1.8-2.4) mg/dl Total Bilirubin 3.9 H (0.2-1.0) mg/dL Direct Bilirubin 1.40 H (0.0-0.2) mg/dl Indirect Bilirubin 2.50 AST 33 (15-37) U/L ALT 30 (16-63) U/L Alkaline Phosphatase 90 (46-116) U/L Ammonia (11-32) umol/L Troponin I (0.00-0.056) ng/mL C-Reactive Protein (<1.0) mg/dL Total Protein 6.5 (6.4-8.2) g/dl Albumin 1.8 L (3.4-5.0) g/dl Globulin 4.7 gm/dL Albumin/Globulin Ratio 0.4 L (1-2) 12/01/18 12/01/18 12/02/18 Range/Units 18:31 23:15 05:35 WBC 12.39 H (4.23-9.07) K/mm3 RBC 2.92 L (4.63-6.08) M/mm3 Hgb 9.6 L (13.7-17.5) gm/L Hct 28.5 L (40.1-51.0) % MCV 97.6 H (79.0-92.2) fl MCH 32.9 H (25.7-32.2) pg MCHC 33.7 (32.2-35.5) g/dl RDW Std Deviation 56.2 H (35.1-43.9) fL Plt Count 46 L (163-337) K/mm3 MPV 9.8 (9.4-12.3) fl Neut % (Auto) 84.8 H (34.0-67.9) % Lymph % (Auto) 6.9 L (21.8-53.1) % Kinney % (Auto) 7.8 (5.3-12.2) % Eos % (Auto) 0 L (0.8-7.0) Baso % (Auto) 0.2 (0.1-1.2) % Neut # (Auto) 10.51 H (1.78-5.38) K/mm3 Lymph # (Auto) 0.85 L (1.32-3.57) K/mm3 Kinney # (Auto) 0.97 H (0.30-0.82) K/mm3 Eos # (Auto) 0.00 L (0.04-0.54) K/mm3 Baso # (Auto) 0.02 (0.01-0.08) K/mm3 Manual Slide Review Abnormal smear Puncture Site ABG pH (7.35-7.45) ABG pCO2 (35.0-45.0) mmHg ABG pO2 (80.0-100.0) mmHg ABG HCO3 (22.0-26.0) meq/L ABG O2 Saturation (96.0-97.0) % ABG Base Excess (-2-2.0) A-a Gradient mmHg O2 Delivery Device FiO2 (21.00-100.00) % Tidal Volume cc PEEP cmH20 Pressure Support cmH2O Blood Gas Comments Sodium (136-145) mEq/L Potassium (3.5-5.1) mEq/L Chloride (98-107) mEq/L Carbon Dioxide (21-32) mEq/L Anion Gap (5-15) BUN (7-18) mg/dL Creatinine (0.7-1.3) mg/dL Est Cr Clr Drug Dosing mL/min Estimated GFR (MDRD) (>60) mL/min BUN/Creatinine Ratio (14-18) Glucose (74-106) mg/dL POC Glucose 226 H 183 H (70-105) mg/dL Lactic Acid (0.4-2.0) mmol/L Calcium (8.5-10.1) mg/dL Magnesium (1.8-2.4) mg/dl Total Bilirubin (0.2-1.0) mg/dL Direct Bilirubin (0.0-0.2) mg/dl Indirect Bilirubin AST (15-37) U/L ALT (16-63) U/L Alkaline Phosphatase (46-116) U/L Ammonia (11-32) umol/L Troponin I (0.00-0.056) ng/mL C-Reactive Protein (<1.0) mg/dL Total Protein (6.4-8.2) g/dl Albumin (3.4-5.0) g/dl Globulin gm/dL Albumin/Globulin Ratio (1-2) 12/02/18 12/02/18 12/02/18 Range/Units 05:35 05:35 05:35 WBC (4.23-9.07) K/mm3 RBC (4.63-6.08) M/mm3 Hgb (13.7-17.5) gm/L Hct (40.1-51.0) % MCV (79.0-92.2) fl MCH (25.7-32.2) pg MCHC (32.2-35.5) g/dl RDW Std Deviation (35.1-43.9) fL Plt Count (163-337) K/mm3 MPV (9.4-12.3) fl Neut % (Auto) (34.0-67.9) % Lymph % (Auto) (21.8-53.1) % Kinney % (Auto) (5.3-12.2) % Eos % (Auto) (0.8-7.0) Baso % (Auto) (0.1-1.2) % Neut # (Auto) (1.78-5.38) K/mm3 Lymph # (Auto) (1.32-3.57) K/mm3 Kinney # (Auto) (0.30-0.82) K/mm3 Eos # (Auto) (0.04-0.54) K/mm3 Baso # (Auto) (0.01-0.08) K/mm3 Manual Slide Review Puncture Site ABG pH (7.35-7.45) ABG pCO2 (35.0-45.0) mmHg ABG pO2 (80.0-100.0) mmHg ABG HCO3 (22.0-26.0) meq/L ABG O2 Saturation (96.0-97.0) % ABG Base Excess (-2-2.0) A-a Gradient mmHg O2 Delivery Device FiO2 (21.00-100.00) % Tidal Volume cc PEEP cmH20 Pressure Support cmH2O Blood Gas Comments Sodium 142 (136-145) mEq/L Potassium 3.6 (3.5-5.1) mEq/L Chloride 113 H (98-107) mEq/L Carbon Dioxide 16 L (21-32) mEq/L Anion Gap 16.6 H (5-15) BUN 23 H (7-18) mg/dL Creatinine 1.6 H (0.7-1.3) mg/dL Est Cr Clr Drug Dosing 51.33 mL/min Estimated GFR (MDRD) 44 (>60) mL/min BUN/Creatinine Ratio 14.4 (14-18) Glucose 158 H (74-106) mg/dL POC Glucose (70-105) mg/dL Lactic Acid (0.4-2.0) mmol/L Calcium 7.8 L (8.5-10.1) mg/dL Magnesium 2.5 H (1.8-2.4) mg/dl Total Bilirubin 4.4 H (0.2-1.0) mg/dL Direct Bilirubin (0.0-0.2) mg/dl Indirect Bilirubin AST 27 (15-37) U/L ALT 22 (16-63) U/L Alkaline Phosphatase 79 (46-116) U/L Ammonia 48 H (11-32) umol/L Troponin I 0.073 H* (0.00-0.056) ng/mL C-Reactive Protein 5.5 H* (<1.0) mg/dL Total Protein 5.9 L (6.4-8.2) g/dl Albumin 1.5 L (3.4-5.0) g/dl Globulin 4.4 gm/dL Albumin/Globulin Ratio 0.3 L (1-2) 12/02/18 12/02/18 12/02/18 Range/Units 05:35 05:36 06:35 WBC (4.23-9.07) K/mm3 RBC (4.63-6.08) M/mm3 Hgb (13.7-17.5) gm/L Hct (40.1-51.0) % MCV (79.0-92.2) fl MCH (25.7-32.2) pg MCHC (32.2-35.5) g/dl RDW Std Deviation (35.1-43.9) fL Plt Count (163-337) K/mm3 MPV (9.4-12.3) fl Neut % (Auto) (34.0-67.9) % Lymph % (Auto) (21.8-53.1) % Kinney % (Auto) (5.3-12.2) % Eos % (Auto) (0.8-7.0) Baso % (Auto) (0.1-1.2) % Neut # (Auto) (1.78-5.38) K/mm3 Lymph # (Auto) (1.32-3.57) K/mm3 Kinney # (Auto) (0.30-0.82) K/mm3 Eos # (Auto) (0.04-0.54) K/mm3 Baso # (Auto) (0.01-0.08) K/mm3 Manual Slide Review Puncture Site Rt brachial ABG pH 7.36 (7.35-7.45) ABG pCO2 25.3 L (35.0-45.0) mmHg ABG pO2 84.0 (80.0-100.0) mmHg ABG HCO3 13.9 L (22.0-26.0) meq/L ABG O2 Saturation 97.6 H (96.0-97.0) % ABG Base Excess -10.0 L (-2-2.0) A-a Gradient 108 mmHg O2 Delivery Device Ventilator FiO2 35.00 (21.00-100.00) % Tidal Volume 500.0 cc PEEP 5.0 cmH20 Pressure Support 5.0 cmH2O Blood Gas Comments Sodium (136-145) mEq/L Potassium (3.5-5.1) mEq/L Chloride (98-107) mEq/L Carbon Dioxide (21-32) mEq/L Anion Gap (5-15) BUN (7-18) mg/dL Creatinine (0.7-1.3) mg/dL Est Cr Clr Drug Dosing mL/min Estimated GFR (MDRD) (>60) mL/min BUN/Creatinine Ratio (14-18) Glucose (74-106) mg/dL POC Glucose 142 H (70-105) mg/dL Lactic Acid 3.6 H (0.4-2.0) mmol/L Calcium (8.5-10.1) mg/dL Magnesium (1.8-2.4) mg/dl Total Bilirubin (0.2-1.0) mg/dL Direct Bilirubin (0.0-0.2) mg/dl Indirect Bilirubin AST (15-37) U/L ALT (16-63) U/L Alkaline Phosphatase (46-116) U/L Ammonia (11-32) umol/L Troponin I (0.00-0.056) ng/mL C-Reactive Protein (<1.0) mg/dL Total Protein (6.4-8.2) g/dl Albumin (3.4-5.0) g/dl Globulin gm/dL Albumin/Globulin Ratio (1-2) // Range/Units 12:22 WBC (4.23-9.07) K/mm3 RBC (4.63-6.08) M/mm3 Hgb (13.7-17.5) gm/L Hct (40.1-51.0) % MCV (79.0-92.2) fl MCH (25.7-32.2) pg MCHC (32.2-35.5) g/dl RDW Std Deviation (35.1-43.9) fL Plt Count (163-337) K/mm3 MPV (9.4-12.3) fl Neut % (Auto) (34.0-67.9) % Lymph % (Auto) (21.8-53.1) % Kinney % (Auto) (5.3-12.2) % Eos % (Auto) (0.8-7.0) Baso % (Auto) (0.1-1.2) % Neut # (Auto) (1.78-5.38) K/mm3 Lymph # (Auto) (1.32-3.57) K/mm3 Kinney # (Auto) (0.30-0.82) K/mm3 Eos # (Auto) (0.04-0.54) K/mm3 Baso # (Auto) (0.01-0.08) K/mm3 Manual Slide Review Puncture Site ABG pH (7.35-7.45) ABG pCO2 (35.0-45.0) mmHg ABG pO2 (80.0-100.0) mmHg ABG HCO3 (22.0-26.0) meq/L ABG O2 Saturation (96.0-97.0) % ABG Base Excess (-2-2.0) A-a Gradient mmHg O2 Delivery Device FiO2 (21.00-100.00) % Tidal Volume cc PEEP cmH20 Pressure Support cmH2O Blood Gas Comments Sodium (136-145) mEq/L Potassium (3.5-5.1) mEq/L Chloride (98-107) mEq/L Carbon Dioxide (21-32) mEq/L Anion Gap (5-15) BUN (7-18) mg/dL Creatinine (0.7-1.3) mg/dL Est Cr Clr Drug Dosing mL/min Estimated GFR (MDRD) (>60) mL/min BUN/Creatinine Ratio (14-18) Glucose (74-106) mg/dL POC Glucose 190 H (70-105) mg/dL Lactic Acid (0.4-2.0) mmol/L Calcium (8.5-10.1) mg/dL Magnesium (1.8-2.4) mg/dl Total Bilirubin (0.2-1.0) mg/dL Direct Bilirubin (0.0-0.2) mg/dl Indirect Bilirubin AST (15-37) U/L ALT (16-63) U/L Alkaline Phosphatase (46-116) U/L Ammonia (11-32) umol/L Troponin I (0.00-0.056) ng/mL C-Reactive Protein (<1.0) mg/dL Total Protein (6.4-8.2) g/dl Albumin (3.4-5.0) g/dl Globulin gm/dL Albumin/Globulin Ratio (1-2) Med Orders - Current: Current Medications Albuterol/Ipratropium (Duoneb 3.0-0.5 Mg/3 Ml) 3 ml NEB Q8HRRT DHIRAJ Last Admin: 12/02/18 06:19 Dose: 3 ml Erythromycin (Jed-Tab) 250 mg PO Q8HR DHIRAJ Last Admin: 12/02/18 06:38 Dose: 250 mg Famotidine (Pepcid) 20 mg IVPUSH BID DHIRAJ Last Admin: 12/02/18 10:14 Dose: 20 mg Propofol (Diprivan 100 Ml) 100 mls @ 7.348 mls/hr IV TITRATE DHIRAJ; Protocol Last Titration: 12/01/18 11:09 Dose: 0 mcg/kg/min, 0 mls/hr Piperacillin Sod/Tazobactam (Sod 4.5 gm/ Sodium Chloride) 100 mls @ 25 mls/hr IV Q8H DHIRAJ Last Admin: 12/02/18 12:13 Dose: 25 mls/hr Norepinephrine Bitartrate 4 mg (/ Dextrose/Water) 250 mls @ 7.5 mls/hr IV TITRATE DHIRAJ; Protocol Last Titration: 12/02/18 11:17 Dose: 0 mcg/min, 0 mls/hr Levofloxacin/Dextrose 750 mg/ (Premix) 150 mls @ 100 mls/hr IV ONETIME ONE Stop: 12/02/18 13:29 Last Admin: 12/02/18 12:15 Dose: 100 mls/hr Potassium Chloride/Sodium Chloride (Normal Saline With 20 Meq Kcl) 1,000 mls @ 150 mls/hr IV ASDIRECTED DHIRAJ Last Admin: 12/02/18 12:11 Dose: 150 mls/hr Dextrose/Sodium Chloride (Dextrose 5%-Normal Saline) 1,000 mls @ 150 mls/hr IV ASDIRECTED [facility] [place] Last Admin: 12/02/18 12:16 Dose: 150 mls/hr Insulin Human Lispro (Humalog) 0 unit SUBCUT Q6HR [facility] [place]; Protocol Last Admin: 12/02/18 12:30 Dose: 1 unit Lactulose (Cephulac) 30 gm PO BID [facility] [place] Last Admin: 12/02/18 10:29 Dose: 30 gm Lorazepam (Ativan) 1 mg IVPUSH Q6H PRN PRN Reason: restlessness Last Admin: 12/02/18 09:55 Dose: 1 mg Morphine Sulfate (Morphine) 2 mg IVPUSH Q4H PRN PRN Reason: Shortness of Breath Last Admin: 12/02/18 09:54 Dose: 2 mg Rifaximin (Xifaxan) 550 mg PO BID [facility] [place] Last Admin: 12/02/18 10:14 Dose: 550 mg Sodium Chloride (Saline Flush) 10 ml FLUSH ASDIRECTED PRN PRN Reason: Keep Vein Open Last Admin: 11/30/18 16:56 Dose: 10 ml Spironolactone (Aldactone) 12.5 mg PO BID [facility] [place] Last Admin: 12/02/18 10:27 Dose: 12.5 mg Discontinued Medications Etomidate (Amidate) 30 mg IVPUSH ONETIME ONE Stop: 11/30/18 18:39 Last Admin: 11/30/18 18:52 Dose: 30 mg Famotidine (Pepcid) 20 mg IVPUSH ONETIME ONE Stop: 11/30/18 21:57 Last Admin: 11/30/18 22:26 Dose: 20 mg Furosemide (Lasix) 20 mg IVPUSH NOW ONE Stop: 12/01/18 23:01 Last Admin: 12/01/18 23:16 Dose: 20 mg Sodium Chloride (Normal Saline) 1,000 mls @ 125 mls/hr IV ASDIRECTED [facility] [place] Last Admin: 11/30/18 16:55 Dose: 125 mls/hr Propofol (Diprivan 100 Ml) Confirm Administered Dose 100 mls @ as directed .ROUTE .STK-MED ONE Stop: 11/30/18 19:02 Last Admin: 11/30/18 19:15 Dose: Not Given Dextrose/Sodium Chloride (Dextrose 5%-Normal Saline) 1,000 mls @ 100 mls/hr IV ASDIRECTED [facility] [place] Last Admin: 12/01/18 09:20 Dose: 100 mls/hr Magnesium Sulfate 4 gm/ Premix 50 mls @ 12.5 mls/hr IV ONETIME ONE Stop: 12/01/18 13:28 Last Admin: 12/01/18 09:50 Dose: 12.5 mls/hr Magnesium Sulfate 4 gm/ Premix 50 mls @ 12.5 mls/hr IV ONETIME ONE Stop: 12/01/18 23:59 Last Admin: 12/01/18 19:58 Dose: 12.5 mls/hr Potassium Chloride/Sodium Chloride (Normal Saline With 20 Meq Kcl) 1,000 mls @ [facility] Last Admin: 12/02/18 01:03 Dose: 100 mls/hr Potassium Chloride/Sodium Chloride (Normal Saline With 20 Meq Kcl) 500 mls [facility]: 12/01/18 19:29 Last Admin: 12/01/18 18:47 Dose: 500 mls/hr Piperacillin Sod/Tazobactam (Sod 4.5 gm/ Sodium Chloride) 100 mls @ 200 mls/hr IV ONETIME ONE Stop: 12/01/18 19:14 Last Admin: 12/01/18 19:14 Dose: 200 mls/hr Dextrose/Sodium Chloride (Dextrose 5%-Normal Saline) 1,000 mls @ [facility] Last Admin: 12/02/18 05:46 Dose: 100 mls/hr Levofloxacin/Dextrose 750 mg/ (Premix) 150 mls @ 100 mls/hr IV ONETIME ONE Stop: 12/02/18 07:29 Last Admin: 12/02/18 08:46 Dose: Not Given Sodium Chloride (Normal Saline) 500 mls @ 999 mls/hr IV .BOLUS ONE Stop: 12/02/18 05:56 Last Admin: 12/02/18 05:45 Dose: 999 mls/hr Sodium Chloride (Normal Saline) Confirm Administered Dose 500 mls @ as directed .ROUTE .STK-MED ONE Stop: 12/02/18 05:45 Last Admin: 12/02/18 05:50 Dose: Not Given Sodium Chloride (Normal Saline) 2,000 mls @ 999 mls/hr IV ONETIME ONE Stop: 12/02/18 10:42 Last Admin: 12/02/18 09:11 Dose: 999 mls/hr Iopamidol (Isovue-370 (76%)) 100 ml IV ONETIME ONE Stop: 12/02/18 07:40 Last Admin: 12/02/18 09:30 Dose: 100 ml Lactulose (Cephulac) 60 gm [id number] ONETIME ONE Stop: 11/30/18 19:01 Last Admin: 11/30/18 19:52 Dose: 60 gm Lactulose (Cephulac) 60 gm PO ONETIME ONE Stop: 12/01/18 01:01 Last Admin: 12/01/18 01:00 Dose: 60 gm Lactulose (Cephulac) 45 gm PO Q6H DHIRAJ Last Admin: 12/02/18 09:16 Dose: Not Given Midazolam HCl (Versed 1 Mg/Ml) 5 mg IVPUSH ONETIME ONE Stop: 11/30/18 19:30 Last Admin: 11/30/18 19:32 Dose: 5 mg Morphine Sulfate (Morphine) 1 mg IVPUSH ONETIME ONE Stop: 12/01/18 11:18 Last Admin: 12/01/18 11:37 Dose: 1 mg Morphine Sulfate (Morphine) 2 mg IVPUSH ONETIME ONE Stop: 12/01/18 16:46 Last Admin: 12/01/18 16:52 Dose: 2 mg Sodium Chloride (Saline Flush) 10 ml FLUSH ONETIME ONE Stop: 12/02/18 07:40 Last Admin: 12/02/18 09:30 Dose: 10 ml Succinylcholine Chloride (Quelicin) 180 mg IV ONETIME ONE Stop: 11/30/18 18:46 Last Admin: 11/30/18 18:53 Dose: 180 mg - Exam General: Sedated HEENT: Other (he respond to sternal rub and painfl stimuli; however he does not open his yes) Neck: Supple Lungs: Normal Respiratory Effort, Other (gastric and mechanical breath sounds) Cardiovascular: Regular Rate, Regular Rhythm GI/Abdominal Exam: Normal Bowel Sounds, Soft, Non-Tender, No Organomegaly, No Distention, No Abnormal Bruit, Distended (mild) (Male) Exam: Deferred Back Exam: Other (deferred) Extremities: Pedal Edema Peripheral Pulses: 1+: Dorsalis Pedis (L), Dorsalis Pedis (R) Skin: Warm, Dry, Intact Neurological: Other (deferred) Psy/Mental Status: Other (deferred) Physical Findings Comments:: Physical exam is limited. He is currently sedated and intubated in mechanical ventilator. - Problem List Review Problem List Initiated/Reviewed/Updated: Yes - My Orders Last 24 Hours: My Active Orders 12/02/18 12:49 D-DIMER [employer] [COAG] Urgent - Plan Plan:: Assessment/Plan: Acute: Hepatic Encephalopathy - Acute on Chronic - 2/2 Advanced Liver Disease and Medical Non-compliance - Ammonia level is 167--> now 48; However Bilirubin level is trending up-- Now at 4.4 - Unsure if he is taking his home meds; reportedly just returned home from a long trip - Resume Home Meds as ordered - Continue Lactulose and Xifaxan; He is also on oral erythromycin likely for treatment - Monitor Ammonia level - Avoid NSAIDs - Repeat Head CT scan this AM report reads no acute intra-cranial abnormality - MVI, Folic and Thiamine Supplement when able to swallow - Start IV Dexamethasone 4 mg IV BID Cholestasis - Has underlying liver failure - Risk factors: DM2 and Medications - No best treatment for it but will start him on IV steroids Permissive Hyperglycemia in Type II DM - He is NPO since admission; consider some form of sustenance in AM - He is getting D5WNS for now - Hold home PO meds until mental status improves -> resume as ordered - Accu-check Q6H with ISS coverage - 1C 6.3 (improved from 7.4 on 08/01/19) Bibasilar Pneumonia w/ Small Pleural Effusion - CTA report reads parenchymal densities within both lung bases; R>>L - Continue IV Zosyn and Levaquin for pharmacy to dose - Serial CXR as indicated S/P ETT on propofol drip, mild sedation; Nebs scheduled; NGT placed with low intermittent suction. - CXR q AM. HOB>40 degrees. - ABG looks good this AM; will try to extubate him - He is now off propofol drip Abnormal head CT compare to 11/30/18 -CT obtained in ED 11/13/18 * 1. Mild small vessel ischemic demyelination change. * 2. Questionable diminished density within the cerebellum on both sides, worse on the left side possibly due to additional small vessel ischemic demyelination change but difficult to completely exclude early ischemic infarct. MRI study with diffusion would be helpful to confirm or rule out this possibility. * 3. No acute intracranial hemorrhage or other abnormality is seen. -MRI obtained 11/13/18: * 1. Mild small vessel ischemic demyelination change within the subcortical white matter. * 2. No abnormal signal is seen within the cerebellar hemispheres and prior CT finding most likely represents B Scott artifact. * 3. No acute diffusion abnormalities are seen -CT Abdominal/Pelvis 12/02/2018 * 1. Cirrhotic change within the liver with splenomegaly * 2. Minimal pleural effusion seen around a portion of the liver * 3. Nothing acute is appreciated Resolved: S/p Hypomagnesemia - Magnesium-repace as needed - 2/2 inadequate intake Chronic: Advanced Liver Disease from Long Hx/o ETOH Abuse Hx/o Esophageal Varices S/p TIPS Pancytopenia 2/2 Liver Disease, Platelet and Hgb at baseline Hypoalbuminemia, 2/2 Liver Disease Albumin level at baseline DM2, Accu-check QID with ISS (will increased level to high) Hyperbilirubinemia/Cholestasis, 2/2 Advanced Liver Disease Obesity with BMI of 38 GERD Chronic Back Pain GI bleeds from Intestinal Varices and Hemorrhoids Thrombocytopenia Hepatic encephalopathy Hypothyroidism Eczema Plan: He is about the same as yesterday Routine AM labs Dietary consult for weight and protein wasting management Aspiration precautions IVF for hydration GI/DVT PPx: H2B/SCDs (low platelet levels) PT/OT consult once appropriate Calcium supplement Daily INR Repeat labs with LA 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
[2018-12-02] MEDS ORDERED: Sodium Chloride 0.9% 1,000 ML IV ONE (14:18)
[2018-12-02] MEDS ORDERED: Sodium Chloride 0.9% 100 ML IV SCH (14:30)
--- NOTE | 2018-12-02 15:06 | CT ---
CT chest Technique: Multiple axial sections through the chest were obtained. Intravenous contrast was utilized. Limitations: Pulmonary arteries are not optimally opacified for good evaluation of pulmonary embolism. Comparison: Prior chest CT study performed earlier on the same day (8:06 AM). Findings: No larger pulmonary emboli are seen within the main or proximal segmental branches. Smaller distal segmental or subsegmental pulmonary emboli could easily be missed. Other findings within the chest are stable from prior exam. No significant change is seen. Impression: 1. Stable chest CT from previous study performed earlier on the same day. 2. Suboptimal opacification of the pulmonary arteries. No evidence of pulmonary embolism within the main or proximal segmental branches but smaller distal segmental or subsegmental pulmonary emboli could easily be missed. Diagnostic code #3
--- NOTE | 2018-12-02 16:39 | US ---
Bilateral lower extremity deep venous ultrasound: Duplex and color flow imaging was obtained of the right and left common femoral, superficial femoral, proximal greater saphenous, popliteal, posterior tibial and peroneal veins. Posterior tibial and peroneal veins could not be evaluated for phasic flow and augmentation due to their small size. Normal compression is seen. Other veins show normal compression, augmentation and phasic flow. Impression: 1. No evidence of deep venous thrombosis within the right or left lower extremities. Diagnostic code #1
[2018-12-02] MEDS ORDERED: Modafinil 200 MG Tab PO ONE (20:44)
[2018-12-02] MEDS: Dexamethasone 4 MG/ML SDV IVPUSH SCH (20:46)
--- NOTE | 2018-12-02 21:02 | PCM.SN ---
- Free Text/Narrative Note: Patient appears to be coming around. He is a little more responsive then this morning. He is partially able to open his eyes on verbal calls. We will plan on extubating him this evening if he becomes fully alert and awake.
[2018-12-02] MEDS ORDERED: Calcium Carbonate 600 MG Tab PO ONE (22:22)
[2018-12-03] MEDS: Insulin Lispro 100 Units/ML 3 ML Vial SUBCUT SCH ×3 (00:59→12:27)
[2018-12-03] MEDS: NS + KCl 20mEq/L 1,000 ML IV SCH ×2 (01:40→08:14)
[2018-12-03] MEDS: Piperacillin/Tazobactam 4.5 GM in Sodium Chloride 0.9% 100 ML IV SCH ×3 (03:19→17:26)
[2018-12-03] MEDS: LORazepam 2 MG/ML SDV IVPUSH PRN ×3 (03:33→23:31)
[2018-12-03] MEDS: Dexamethasone 4 MG/ML SDV IVPUSH SCH ×2 (05:48→21:19)
[2018-12-03] MEDS: Albuterol/Ipratropium 3.0-0.5 MG/3 ML Neb Soln NEB SCH ×3 (05:59→20:23)
[2018-12-03] MEDS: Modafinil 200 MG Tab PO SCH ×2 (06:26→08:00)
[2018-12-03] MEDS: Spironolactone 25 MG Tab PO SCH ×2 (07:59→21:21)
[2018-12-03] MEDS: Saccharomyces Boulardii (Probiotic) 250 MG Cap PO SCH ×2 (07:59→21:22)
[2018-12-03] MEDS: Famotidine 20 MG/2 ML SDV IVPUSH SCH ×2 (08:00→21:22)
[2018-12-03] MEDS: Lactulose Soln 10 GM/15 ML 30 ML UD Cup PO SCH ×2 (08:00→21:21)
[2018-12-03] MEDS: Rifaximin 550 MG Tab PO SCH ×2 (08:00→21:36)
[2018-12-03] MEDS: Furosemide 40 MG Tab PO SCH (08:00)
--- NOTE | 2018-12-03 08:14 | PCM.PN ---
- General Info Date of Service: 12/03/18 Admission Dx/Problem (Free Text): Admission Diagnosis/Problem Admission Diagnosis/Problem Cirrhosis of liver Subjective Update: Follow Up Functional Status: Reports: Pain Controlled, Urinating. Denies: New Symptoms - Review of Systems General: Denies: Fever, Chills HEENT: Reports: No Symptoms Pulmonary: Denies: Shortness of Breath Systems Review Comment:: No significant overnight issues. He is still sedated, intubated on mechanical ventilator. Awaiting ABG and CXR pending extubation. His Ammonia is 49 this morning. - Patient Data Vitals - Most Recent: Last Vital Signs Temp 37.2 C 12/03/18 04:00 Pulse 83 12/03/18 04:00 Resp 19 12/03/18 04:00 BP 110/65 12/03/18 04:00 Pulse Ox 100 12/03/18 04:35 Weight - Most Recent: 128.639 kg I&O - Last 24 Hours: Intake & Output 12/02/18 12/03/18 12/03/18 22:59 06:59 14:59 Intake Total 4079 2977 Output Total 565 370 Balance 3514 9697 Lab Results Last 24 Hours: Laboratory Results - last 24 hr 12/02/18 12/02/18 12/02/18 Range/Units 12:22 13:40 16:44 WBC (4.23-9.07) K/mm3 RBC (4.63-6.08) M/mm3 Hgb (13.7-17.5) gm/L Hct (40.1-51.0) % MCV (79.0-92.2) fl MCH (25.7-32.2) pg MCHC (32.2-35.5) g/dl RDW Std Deviation (35.1-43.9) fL Plt Count (163-337) K/mm3 MPV (9.4-12.3) fl Neut % (Auto) (34.0-67.9) % Lymph % (Auto) (21.8-53.1) % [place] % (Auto) (5.3-12.2) % Eos % (Auto) (0.8-7.0) Baso % (Auto) (0.1-1.2) % Neut # (Auto) (1.78-5.38) K/mm3 Lymph # (Auto) (1.32-3.57) K/mm3 [place] # (Auto) (0.30-0.82) K/mm3 Eos # (Auto) (0.04-0.54) K/mm3 Baso # (Auto) (0.01-0.08) K/mm3 Manual Slide Review PT (9.5-12.1) SECONDS INR D-Dimer, Quantitative 6.52 H (0.19-0.50) mg/L Sodium (136-145) mEq/L Potassium (3.5-5.1) mEq/L Chloride (98-107) mEq/L Carbon Dioxide (21-32) mEq/L Anion Gap (5-15) BUN (7-18) mg/dL Creatinine (0.7-1.3) mg/dL Est Cr Clr Drug Dosing mL/min Estimated GFR (MDRD) (>60) mL/min BUN/Creatinine Ratio (14-18) Glucose (74-106) mg/dL POC Glucose 190 H 216 H (70-105) mg/dL Lactic Acid (0.4-2.0) mmol/L Calcium (8.5-10.1) mg/dL Magnesium (1.8-2.4) mg/dl Total Bilirubin (0.2-1.0) mg/dL Direct Bilirubin (0.0-0.2) mg/dl AST (15-37) U/L ALT (16-63) U/L Alkaline Phosphatase (46-116) U/L Ammonia (11-32) umol/L C-Reactive Protein (<1.0) mg/dL NT-Pro-B Natriuret Pep (0-125) pg/mL Total Protein (6.4-8.2) g/dl Albumin (3.4-5.0) g/dl Globulin gm/dL Albumin/Globulin Ratio (1-2) 12/02/18 12/02/18 12/02/18 Range/Units 17:50 17:50 17:50 WBC (4.23-9.07) K/mm3 RBC (4.63-6.08) M/mm3 Hgb (13.7-17.5) gm/L Hct (40.1-51.0) % MCV (79.0-92.2) fl MCH (25.7-32.2) pg MCHC (32.2-35.5) g/dl RDW Std Deviation (35.1-43.9) fL Plt Count (163-337) K/mm3 MPV (9.4-12.3) fl Neut % (Auto) (34.0-67.9) % Lymph % (Auto) (21.8-53.1) % [place] % (Auto) (5.3-12.2) % Eos % (Auto) (0.8-7.0) Baso % (Auto) (0.1-1.2) % Neut # (Auto) (1.78-5.38) K/mm3 Lymph # (Auto) (1.32-3.57) K/mm3 [place] # (Auto) (0.30-0.82) K/mm3 Eos # (Auto) (0.04-0.54) K/mm3 Baso # (Auto) (0.01-0.08) K/mm3 Manual Slide Review PT (9.5-12.1) SECONDS INR D-Dimer, Quantitative (0.19-0.50) mg/L Sodium 144 (136-145) mEq/L Potassium 4.5 (3.5-5.1) mEq/L Chloride 116 H (98-107) mEq/L Carbon Dioxide 16 L (21-32) mEq/L Anion Gap 16.5 H (5-15) BUN 25 H (7-18) mg/dL Creatinine 1.3 (0.7-1.3) mg/dL Est Cr Clr Drug Dosing 63.33 mL/min Estimated GFR (MDRD) 57 (>60) mL/min BUN/Creatinine Ratio 19.2 H (14-18) Glucose 195 H (74-106) mg/dL POC Glucose (70-105) mg/dL Lactic Acid 2.8 H (0.4-2.0) mmol/L Calcium 7.1 L (8.5-10.1) mg/dL Magnesium 2.4 (1.8-2.4) mg/dl Total Bilirubin 3.4 H (0.2-1.0) mg/dL Direct Bilirubin (0.0-0.2) mg/dl AST 48 H (15-37) U/L ALT 27 (16-63) U/L Alkaline Phosphatase 72 (46-116) U/L Ammonia (11-32) umol/L C-Reactive Protein (<1.0) mg/dL NT-Pro-B Natriuret Pep 841 H (0-125) pg/mL Total Protein 5.7 L (6.4-8.2) g/dl Albumin 1.4 L (3.4-5.0) g/dl Globulin 4.3 gm/dL Albumin/Globulin Ratio 0.3 L (1-2) 12/03/18 12/03/18 12/03/18 Range/Units 00:29 06:05 06:05 WBC 8.46 (4.23-9.07) K/mm3 RBC 2.67 L (4.63-6.08) M/mm3 Hgb 8.8 L (13.7-17.5) gm/L Hct 26.8 L (40.1-51.0) % MCV 100.4 H (79.0-92.2) fl MCH 33.0 H (25.7-32.2) pg MCHC 32.8 (32.2-35.5) g/dl RDW Std Deviation 57.3 H (35.1-43.9) fL Plt Count 40 L (163-337) K/mm3 MPV 10.2 (9.4-12.3) fl Neut % (Auto) 90.8 H (34.0-67.9) % Lymph % (Auto) 5.1 L (21.8-53.1) % [place] % (Auto) 3.7 L (5.3-12.2) % Eos % (Auto) 0 L (0.8-7.0) Baso % (Auto) 0.0 L (0.1-1.2) % Neut # (Auto) 7.69 H (1.78-5.38) K/mm3 Lymph # (Auto) 0.43 L (1.32-3.57) K/mm3 [place] # (Auto) 0.31 (0.30-0.82) K/mm3 Eos # (Auto) 0.00 L (0.04-0.54) K/mm3 Baso # (Auto) 0.00 L (0.01-0.08) K/mm3 Manual Slide Review Abnormal smear PT (9.5-12.1) SECONDS INR D-Dimer, Quantitative (0.19-0.50) mg/L Sodium 141 (136-145) mEq/L Potassium 4.4 (3.5-5.1) mEq/L Chloride 116 H (98-107) mEq/L Carbon Dioxide 17 L (21-32) mEq/L Anion Gap 12.4 (5-15) BUN 29 H (7-18) mg/dL Creatinine 1.3 (0.7-1.3) mg/dL Est Cr Clr Drug Dosing 63.33 mL/min Estimated GFR (MDRD) 57 (>60) mL/min BUN/Creatinine Ratio 22.3 H (14-18) Glucose 264 H (74-106) mg/dL POC Glucose 205 H (70-105) mg/dL Lactic Acid (0.4-2.0) mmol/L Calcium 6.9 L (8.5-10.1) mg/dL Magnesium 2.4 (1.8-2.4) mg/dl Total Bilirubin (0.2-1.0) mg/dL Direct Bilirubin (0.0-0.2) mg/dl AST (15-37) U/L ALT (16-63) U/L Alkaline Phosphatase (46-116) U/L Ammonia (11-32) umol/L C-Reactive Protein (<1.0) mg/dL NT-Pro-B Natriuret Pep (0-125) pg/mL Total Protein (6.4-8.2) g/dl Albumin (3.4-5.0) g/dl Globulin gm/dL Albumin/Globulin Ratio (1-2) 12/03/18 12/03/18 12/03/18 Range/Units 06:05 06:05 06:05 WBC (4.23-9.07) K/mm3 RBC (4.63-6.08) M/mm3 Hgb (13.7-17.5) gm/L Hct (40.1-51.0) % MCV (79.0-92.2) fl MCH (25.7-32.2) pg MCHC (32.2-35.5) g/dl RDW Std Deviation (35.1-43.9) fL Plt Count (163-337) K/mm3 MPV (9.4-12.3) fl Neut % (Auto) (34.0-67.9) % Lymph % (Auto) (21.8-53.1) % [place] % (Auto) (5.3-12.2) % Eos % (Auto) (0.8-7.0) Baso % (Auto) (0.1-1.2) % Neut # (Auto) (1.78-5.38) K/mm3 Lymph # (Auto) (1.32-3.57) K/mm3 [place] # (Auto) (0.30-0.82) K/mm3 Eos # (Auto) (0.04-0.54) K/mm3 Baso # (Auto) (0.01-0.08) K/mm3 Manual Slide Review PT 18.2 H (9.5-12.1) SECONDS INR 1.69 D-Dimer, Quantitative (0.19-0.50) mg/L Sodium (136-145) mEq/L Potassium (3.5-5.1) mEq/L Chloride (98-107) mEq/L Carbon Dioxide (21-32) mEq/L Anion Gap (5-15) BUN (7-18) mg/dL Creatinine (0.7-1.3) mg/dL Est Cr Clr Drug Dosing mL/min Estimated GFR (MDRD) (>60) mL/min BUN/Creatinine Ratio (14-18) Glucose (74-106) mg/dL POC Glucose (70-105) mg/dL Lactic Acid (0.4-2.0) mmol/L Calcium (8.5-10.1) mg/dL Magnesium (1.8-2.4) mg/dl Total Bilirubin 2.5 H (0.2-1.0) mg/dL Direct Bilirubin 1.10 H (0.0-0.2) mg/dl AST (15-37) U/L ALT (16-63) U/L Alkaline Phosphatase (46-116) U/L Ammonia 49 H (11-32) umol/L C-Reactive Protein 12.7 H* (<1.0) mg/dL NT-Pro-B Natriuret Pep (0-125) pg/mL Total Protein (6.4-8.2) g/dl Albumin (3.4-5.0) g/dl Globulin gm/dL Albumin/Globulin Ratio (1-2) Med Orders - Current: Current Medications Albuterol/Ipratropium (Duoneb 3.0-0.5 Mg/3 Ml) 3 ml NEB Q8HRRT [facility] Last Admin: 12/03/18 05:59 Dose: 3 ml Dexamethasone (Dexamethasone) 4 mg IVPUSH Q12H DHIRAJ Last Admin: 12/03/18 05:48 Dose: 4 mg Erythromycin (Jed-Tab) 250 mg PO Q8HR DHIRAJ Last Admin: 12/03/18 05:41 Dose: 250 mg Famotidine (Pepcid) 20 mg IVPUSH BID [facility] Last Admin: 12/03/18 08:00 Dose: 20 mg Furosemide (Lasix) 40 mg PO DAILY [facility] Last Admin: 12/03/18 08:00 Dose: 40 mg Piperacillin Sod/Tazobactam (Sod 4.5 gm/ Sodium Chloride) 100 mls @ 25 mls/hr IV Q8H DHIRAJ Last Admin: 12/03/18 03:19 Dose: 25 mls/hr Norepinephrine Bitartrate 4 mg (/ Dextrose/Water) 250 mls @ 7.5 mls/hr IV TITRATE [facility]; Protocol Last Titration: 12/02/18 11:17 Dose: 0 mcg/min, 0 mls/hr Potassium Chloride/Sodium Chloride (Normal Saline With 20 Meq Kcl) 1,000 mls @ 150 mls/hr IV ASDIRECTED [facility] Last Admin: 12/03/18 01:40 Dose: 150 mls/hr Dextrose/Sodium Chloride (Dextrose 5%-Normal Saline) 1,000 mls @ 150 mls/hr IV ASDIRECTED [facility] Last Admin: 12/02/18 22:32 Dose: 150 mls/hr Levofloxacin/Dextrose 750 mg/ (Premix) 150 mls @ 100 mls/hr IV Q24H [facility] Insulin Human Lispro (Humalog) 0 unit SUBCUT Q6HR [facility]; Protocol Last Admin: 12/03/18 06:26 Dose: 9 unit Lactulose (Cephulac) 30 gm PO BID [facility] Last Admin: 12/03/18 08:00 Dose: 30 gm Lorazepam (Ativan) 1 mg IVPUSH Q6H PRN PRN Reason: restlessness Last Admin: 12/03/18 03:33 Dose: 1 mg Modafinil (Provigil) 200 mg PO DAILY [facility] Last Admin: 12/03/18 08:00 Dose: 200 mg Morphine Sulfate (Morphine) 2 mg IVPUSH Q4H PRN PRN Reason: Shortness of Breath Last Admin: 12/02/18 09:54 Dose: 2 mg Rifaximin (Xifaxan) 550 mg PO BID [facility] Last Admin: 12/03/18 08:00 Dose: 550 mg Saccharomyces Boulardii (Florastor) 250 mg PO BID [facility] Last Admin: 12/03/18 07:59 Dose: 250 mg Sodium Chloride (Saline Flush) 10 ml FLUSH ASDIRECTED PRN PRN Reason: Keep Vein Open Last Admin: 11/30/18 16:56 Dose: 10 ml Spironolactone (Aldactone) 12.5 mg PO BID [facility] Last Admin: 12/03/18 07:59 Dose: 12.5 mg Discontinued Medications Calcium Carbonate/Glycine (Calcium Carbonate) 1,200 mg PO ONETIME ONE Stop: 12/02/18 22:23 Last Admin: 12/02/18 22:42 Dose: 1,200 mg Etomidate (Amidate) 30 mg IVPUSH ONETIME ONE Stop: 11/30/18 18:39 Last Admin: 11/30/18 18:52 Dose: 30 mg Famotidine (Pepcid) 20 mg IVPUSH ONETIME ONE Stop: 11/30/18 21:57 Last Admin: 11/30/18 22:26 Dose: 20 mg Furosemide (Lasix) 20 mg IVPUSH NOW ONE Stop: 12/01/18 23:01 Last Admin: 12/01/18 23:16 Dose: 20 mg Sodium Chloride (Normal Saline) 1,000 mls @ 125 mls/hr IV ASDIRECTED [facility] Last Admin: 11/30/18 16:55 Dose: 125 mls/hr Propofol (Diprivan 100 Ml) 100 mls @ 7.348 mls/hr IV TITRATE [facility]IRAJ; Protocol Last Titration: 12/01/18 11:09 Dose: 0 mcg/kg/min, 0 mls/hr Propofol (Diprivan 100 Ml) Confirm Administered Dose 100 mls @ as directed .ROUTE .STK-MED ONE Stop: 11/30/18 19:02 Last Admin: 11/30/18 19:15 Dose: Not Given Dextrose/Sodium Chloride (Dextrose 5%-Normal Saline) 1,000 mls @ 100 mls/hr IV ASDIRECTED [facility] Last Admin: 12/01/18 09:20 Dose: 100 mls/hr Magnesium Sulfate 4 gm/ Premix 50 mls @ 12.5 mls/hr IV ONETIME ONE Stop: 12/01/18 13:28 Last Admin: 12/01/18 09:50 Dose: 12.5 mls/hr Magnesium Sulfate 4 gm/ Premix 50 mls @ 12.5 mls/hr IV ONETIME ONE Stop: 12/01/18 23:59 Last Admin: 12/01/18 19:58 Dose: 12.5 mls/hr Potassium Chloride/Sodium Chloride (Normal Saline With 20 Meq Kcl) 1,000 mls @ 100 mls/hr IV ASDIRECTED [facility] Last Admin: 12/02/18 01:03 Dose: 100 mls/hr Potassium Chloride/Sodium Chloride (Normal Saline With 20 Meq Kcl) 500 mls @ 500 mls/hr IV ASDIRECTED [facility] Stop: 12/01/18 19:29 Last Admin: 12/01/18 18:47 Dose: 500 mls/hr Piperacillin Sod/Tazobactam (Sod 4.5 gm/ Sodium Chloride) 100 mls @ 200 mls/hr IV ONETIME ONE Stop: 12/01/18 19:14 Last Admin: 12/01/18 19:14 Dose: 200 mls/hr Dextrose/Sodium Chloride (Dextrose 5%-Normal Saline) 1,000 mls @ 100 mls/hr IV ASDIRECTED [facility] Last Admin: 12/02/18 05:46 Dose: 100 mls/hr Levofloxacin/Dextrose 750 mg/ (Premix) 150 mls @ 100 mls/hr IV ONETIME ONE Stop: 12/02/18 07:29 Last Admin: 12/02/18 08:46 Dose: Not Given Sodium Chloride (Normal Saline) 500 mls @ 999 mls/hr IV .BOLUS ONE Stop: 12/02/18 05:56 Last Admin: 12/02/18 05:45 Dose: 999 mls/hr Sodium Chloride (Normal Saline) Confirm Administered Dose 500 mls @ as directed .ROUTE .STK-MED ONE Stop: 12/02/18 05:45 Last Admin: 12/02/18 05:50 Dose: Not Given Levofloxacin/Dextrose 750 mg/ (Premix) 150 mls @ 100 mls/hr IV ONETIME ONE Stop: 12/02/18 13:29 Last Admin: 12/02/18 12:15 Dose: 100 mls/hr Sodium Chloride (Normal Saline) 2,000 mls @ 999 mls/hr IV ONETIME ONE Stop: 12/02/18 10:42 Last Admin: 12/02/18 09:11 Dose: 999 mls/hr Sodium Chloride (Normal Saline) 100 mls @ 60 mls/hr IV ASDIRECTED [facility] Last Admin: 12/02/18 14:44 Dose: 60 mls/hr Sodium Chloride (Normal Saline) 1,000 mls @ 999 mls/hr IV ONETIME ONE Stop: 12/02/18 15:18 Last Admin: 12/02/18 15:00 Dose: 999 mls/hr Iopamidol (Isovue-370 (76%)) 100 ml IV ONETIME ONE Stop: 12/02/18 07:40 Last Admin: 12/02/18 09:30 Dose: 100 ml Iopamidol (Isovue-370 (76%)) 100 ml IV ONETIME ONE Stop: 12/02/18 14:19 Last Admin: 12/02/18 14:44 Dose: 100 ml Lactulose (Cephulac) 60 gm NGTUBE ONETIME ONE Stop: 11/30/18 19:01 Last Admin: 11/30/18 19:52 Dose: 60 gm Lactulose (Cephulac) 60 gm PO ONETIME ONE Stop: 12/01/18 01:01 Last Admin: 12/01/18 01:00 Dose: 60 gm Lactulose (Cephulac) 45 gm PO Q6H DHIRAJ Last Admin: 12/02/18 09:16 Dose: Not Given Midazolam HCl (Versed 1 Mg/Ml) 5 mg IVPUSH ONETIME ONE Stop: 11/30/18 19:30 Last Admin: 11/30/18 19:32 Dose: 5 mg Modafinil (Provigil) 100 mg PO ONETIME ONE Stop: 12/02/18 20:45 Last Admin: 12/02/18 21:10 Dose: 100 mg Morphine Sulfate (Morphine) 1 mg IVPUSH ONETIME ONE Stop: 12/01/18 11:18 Last Admin: 12/01/18 11:37 Dose: 1 mg Morphine Sulfate (Morphine) 2 mg IVPUSH ONETIME ONE Stop: 12/01/18 16:46 Last Admin: 12/01/18 16:52 Dose: 2 mg Sodium Chloride (Saline Flush) 10 ml FLUSH ONETIME ONE Stop: 12/02/18 07:40 Last Admin: 12/02/18 09:30 Dose: 10 ml Succinylcholine Chloride (Quelicin) 180 mg IV ONETIME ONE Stop: 11/30/18 18:46 Last Admin: 11/30/18 18:53 Dose: 180 mg - Exam General: Sedated, Other HEENT: Pupils Equal, Pupils Reactive Neck: Supple Lungs: Normal Respiratory Effort, Decreased Breath Sounds, Other (mechanical and gastric breath sounds) Cardiovascular: Regular Rate, Regular Rhythm GI/Abdominal Exam: Normal Bowel Sounds, Soft, No Organomegaly, No Abnormal Bruit , No Mass, Pelvis Stable, Distended (Male) Exam: Other (indwelling perez catheter) Back Exam: Normal Inspection, Decreased Range of Motion Extremities: Normal Inspection, Normal Range of Motion, Non-Tender, Normal Capillary Refill, Pedal Edema, Other (bilateral lower extremity: wrapped with Gasper) Peripheral Pulses: 1+: Dorsalis Pedis (L), Dorsalis Pedis (R) Skin: Warm, Dry Physical Findings Comments:: physical examination limited. He remains on mechanical ventilator but he respond to verbal calls and manual stimuli. He is able to move all his extremities. - Problem List Review Problem List Initiated/Reviewed/Updated: Yes - My Orders Last 24 Hours: My Active Orders 12/02/18 18:45 Dexamethasone 4 mg IVPUSH Q12H 12/03/18 07:00 Modafinil [Provigil] 200 mg PO DAILY 12/03/18 08:15 RT Arterial Blood Gases, ABG [RC] ONETIME 12/03/18 09:00 Furosemide [Lasix] 40 mg PO DAILY Saccharomyces Boulardii [Florastor] 250 mg PO BID 12/03/18 12:00 Levofloxacin/Dextrose 5%-Water [Levaquin in D5W 750 MG/150 ML] 750 mg Premix Bag 1 bag IV Q24H 12/04/18 05:11 CRP [C-REACTIVE PROTEIN] [CHEM] AM INR,PT,PROTHROMBIN TIME [COAG] AM 12/05/18 05:11 CRP [C-REACTIVE PROTEIN] [CHEM] AM INR,PT,PROTHROMBIN TIME [COAG] AM - Plan Plan:: Assessment/Plan: Acute: Hepatic Encephalopathy, Improving - Acute on Chronic - 2/2 Advanced Liver Disease and Medical Non-compliance - Ammonia level is 167--> now 48; However Bilirubin level is trending up-- Now at 4.4 - Unsure if he is taking his home meds; reportedly just returned home from a long trip - Resume Home Meds as ordered - Continue Lactulose and Xifaxan; He is also on oral erythromycin likely for treatment - Monitor Ammonia level - Avoid NSAIDs - Repeat Head CT scan this AM report reads no acute intra-cranial abnormality - MVI, Folic and Thiamine Supplement when able to swallow - Start IV Dexamethasone 4 mg IV BID Cholestasis, Improving - T. Bilirubin 4.4-->3.4 -->2.5 - Has underlying liver failure - Risk factors: DM2 and Medications - Continue IV steroid Permissive Hyperglycemia in Type II DM - BS in the 200s - He is NPO since admission; consider some form of sustenance in AM if he does not meet criteria for extubation - He is getting D5WNS for now - Hold home PO meds until mental status improves -> resume as ordered - Accu-check Q6H with ISS coverage - A1C 6.3 (improved from 7.4 on 08/01/19) Bibasilar Pneumonia w/ Small Pleural Effusion - CTA report reads parenchymal densities within both lung bases; R>>L - Continue IV Zosyn and Levaquin for pharmacy to dose; discontinue after total of 5 day treatment - IS as directed - Serial CXR as indicated S/P ETT on propofol drip, mild sedation; Nebs scheduled; NGT placed with low intermittent suction. - CXR q AM. HOB>40 degrees. - ABG looks good this AM; will try to extubate him - He is now off propofol drip Hypocalcemia - Ca 7.1--> 6.9 - 2/2 GI loss and NPO status - Replete and monitor Abnormal head CT compare to 11/30/18 -CT obtained in ED 11/13/18 * 1. Mild small vessel ischemic demyelination change. * 2. Questionable diminished density within the cerebellum on both sides, worse on the left side possibly due to additional small vessel ischemic demyelination change but difficult to completely exclude early ischemic infarct. MRI study with diffusion would be helpful to confirm or rule out this possibility. * 3. No acute intracranial hemorrhage or other abnormality is seen. -MRI obtained 11/13/18: * 1. Mild small vessel ischemic demyelination change within the subcortical white matter. * 2. No abnormal signal is seen within the cerebellar hemispheres and prior CT finding most likely represents B Scott artifact. * 3. No acute diffusion abnormalities are seen -CT Abdominal/Pelvis 12/02/2018 * 1. Cirrhotic change within the liver with splenomegaly * 2. Minimal pleural effusion seen around a portion of the liver * 3. Nothing acute is appreciated Resolved: S/p Hypomagnesemia - Magnesium-repace as needed - 2/2 inadequate intake Chronic: Advanced Liver Disease from Long Hx/o ETOH Abuse Hx/o Esophageal Varices S/p TIPS Pancytopenia 2/2 Liver Disease, Platelet and Hgb at baseline Hypoalbuminemia, 2/2 Liver Disease Albumin level at baseline DM2, Accu-check QID with ISS (will increased level to high) Hyperbilirubinemia/Cholestasis, 2/2 Advanced Liver Disease Obesity with BMI of 38 GERD Chronic Back Pain GI bleeds from Intestinal Varices and Hemorrhoids Thrombocytopenia Hepatic encephalopathy Hypothyroidism Eczema Plan: He is waking up this AM Routine AM labs Dietary consult for weight and protein wasting management Aspiration precautions GI/DVT PPx: H2B/SCDs (low platelet levels) PT/OT consult once appropriate Calcium supplement Daily INR; 1.69 (no need for anti-coagulant) spout worker/CM for discharge planning Code status: Full code; PCP: [facility] Plan for extubation this AM - Patient Instructions Diet: Diabetic Diet Activity: As Tolerated Notify Provider of: Fever, Increased Pain, Nausea and/or Vomiting - Discharge Plan *PRESCRIPTION DRUG MONITORING PROGRAM REVIEWED*: No *COPY OF PRESCRIPTION DRUG MONITORING REPORT IN PATIENT RAVI: No
--- NOTE | 2018-12-03 08:50 | CR ---
Chest: Frontal view of the chest was obtained. Comparison: Prior chest x-ray of 12/02/18. Stable atelectasis within the left chest. Heart is mildly enlarged. Tortuous thoracic aorta is seen. Increased pulmonary vessels are seen which are stable. Slight parenchymal density within the right mid and lower lung is stable. Tip of endotracheal tube lies at the lower level of the clavicles above the latasha in satisfactory position. Nasogastric tube shows the tip to lie below the diaphragm. Impression: 1. Stable appearing chest x-ray from previous study. Satisfactory position of tubes and catheters. Diagnostic code #3
--- NOTE | 2018-12-03 09:37 | PCM.SN ---
- Free Text/Narrative Note: His ABG looks good and patient was successfully extubated at 0935. Stat chest x- ray, and CURB ATTENDANT eval ordered.
--- NOTE | 2018-12-03 10:44 | CR ---
Chest: Portable view of the chest was obtained. Comparison: Prior chest x-ray performed earlier on the same day (8:14 a.m.) Findings: Heart is enlarged. Tortuous thoracic aorta is seen. Pulmonary vessels remain congested. Focal parenchymal density is noted within the right base. There is soft tissue swelling causing subglottic narrowing most likely residual from endotracheal tube which has been removed in the interim. Nasogastric tube is also been removed. Bony structures are grossly intact. Impression: 1. Subglottic narrowing as noted above. 2. Interval removal of endotracheal tube and nasogastric tube. 3. Other portions of the chest are stable. Diagnostic code #3
[2018-12-03] MEDS ORDERED: Levofloxacin/Dextrose 5%-Water 750 MG in Premix Bag 1 BAG IV SCH (12:00)
[2018-12-03] MEDS ORDERED: Sodium Chloride 0.9% Inhalation Soln 3 ML Neb INH PRN (13:40)
[2018-12-03] MEDS ORDERED: Racepinephrine 2.25% 0.5 ML Neb Soln NEB PRN (13:40)
[2018-12-03] MEDS: Sodium Chloride 0.9% Inhalation Soln 3 ML Neb INH SCH ×2 (14:05→20:23)
[2018-12-03] MEDS: Racepinephrine 2.25% 0.5 ML Neb Soln NEB SCH ×2 (14:05→20:23)
[2018-12-03] MEDS ORDERED: Calcium Gluconate 10% 1 GM/10 ML SDV IVPUSH ONE (14:09)
[2018-12-03] MEDS: methylPREDNISolone Sodium Succinate 125 MG/2 ML SDV IVPUSH SCH ×2 (14:23→21:24)
[2018-12-03] MEDS: Levofloxacin/Dextrose 5%-Water 750 MG in Premix Bag 1 BAG IV SCH (14:23)
[2018-12-03] MEDS ORDERED: Morphine 2 MG/ML Syringe IVPUSH ONE (16:10)
[2018-12-03] MEDS ORDERED: Bumetanide 1 MG/4 ML MDV IVPUSH ONE ×2 (16:11→21:00)
[2018-12-03] MEDS: Sodium Chloride 0.9% 1,000 ML IV SCH (16:29)
[2018-12-03] MEDS ORDERED: Insulin Lispro 100 Units/ML 3 ML Vial SUBCUT SCH (17:00)
[2018-12-03] MEDS: Racepinephrine 2.25% 0.5 ML Neb Soln NEB PRN (17:46)
[2018-12-03] MEDS: Morphine 2 MG/ML Syringe IVPUSH PRN (21:12)
[2018-12-03] MEDS: Metoclopramide 10 MG/2 ML SDV IVPUSH SCH (23:11)
[2018-12-04] MEDS: Insulin Lispro 100 Units/ML 3 ML Vial SUBCUT SCH ×4 (00:04→18:49)
[2018-12-04] MEDS: Piperacillin/Tazobactam 4.5 GM in Sodium Chloride 0.9% 100 ML IV SCH ×3 (01:56→18:42)
[2018-12-04] MEDS: Albuterol/Ipratropium 3.0-0.5 MG/3 ML Neb Soln NEB SCH ×3 (05:11→22:00)
[2018-12-04] MEDS: methylPREDNISolone Sodium Succinate 125 MG/2 ML SDV IVPUSH SCH (05:40)
[2018-12-04] MEDS: Sodium Chloride 0.9% 1,000 ML IV SCH (05:47)
[2018-12-04] MEDS: Sodium Chloride 0.9% Inhalation Soln 3 ML Neb INH SCH ×3 (08:15→22:00)
[2018-12-04] MEDS: Racepinephrine 2.25% 0.5 ML Neb Soln NEB SCH ×3 (08:15→22:00)
--- NOTE | 2018-12-04 09:04 | CR ---
Chest: Frontal view of the chest was obtained. Comparison: Prior chest x-ray of 12/03/18. Decreasing parenchymal density within the right base from prior study is noted. Diffuse increased pulmonary vessels are seen which appear stable. Heart is mildly enlarged. Tortuous thoracic aorta is seen. Bony structures are grossly intact. Mild subglottic narrowing is seen which has slightly improved from previous exam. Impression: 1. Improved parenchymal density within the right lung base from prior exam. 2. Slightly improved subglottic narrowing within the neck. 3. Stable pulmonary vascular congestion and mild cardiomegaly. Diagnostic code #3
--- NOTE | 2018-12-04 09:32 | PCM.PN ---
- General Info Date of Service: 12/04/18 Admission Dx/Problem (Free Text): Admission Diagnosis/Problem Admission Diagnosis/Problem Cirrhosis of liver Subjective Update: Follow Up Functional Status: Reports: Pain Controlled, Tolerating Diet, Ambulating, Urinating, Other. Denies: New Symptoms - Review of Systems General: Denies: Fever, Chills Systems Review Comment:: No significant overnight issues. He slept all night. He received a one time dose of ativan/morphine. He is afebrile w/o leukocytosis. However he is sedated and difficult to arouse this AM. He has been NPO since extubation due to subglottic narrowing. As a result, he as not able to take all his medication including his hepatic encephalopathy medications. His BS in the upper 200s. - Patient Data Vitals - Most Recent: Last Vital Signs Temp 36.7 C 12/04/18 08:00 Pulse 90 12/04/18 08:00 Resp 28 H 12/04/18 08:00 BP 102/56 L 12/04/18 08:00 Pulse Ox 93 L 12/04/18 08:15 Weight - Most Recent: 131.542 kg I&O - Last 24 Hours: Intake & Output 12/03/18 12/04/18 12/04/18 22:59 06:59 14:59 Intake Total 2421 959 Output Total 745 625 120 Balance 1676 334 -120 Lab Results Last 24 Hours: Laboratory Results - last 24 hr 12/03/18 12/03/18 12/03/18 Range/Units 06:25 09:03 12:30 WBC (4.23-9.07) K/mm3 RBC (4.63-6.08) M/mm3 Hgb (13.7-17.5) gm/L Hct (40.1-51.0) % MCV (79.0-92.2) fl MCH (25.7-32.2) pg MCHC (32.2-35.5) g/dl RDW Std Deviation (35.1-43.9) fL Plt Count (163-337) K/mm3 MPV (9.4-12.3) fl Neut % (Auto) (34.0-67.9) % Lymph % (Auto) (21.8-53.1) % [place] % (Auto) (5.3-12.2) % Eos % (Auto) (0.8-7.0) Baso % (Auto) (0.1-1.2) % Neut # (Auto) (1.78-5.38) K/mm3 Lymph # (Auto) (1.32-3.57) K/mm3 [place] # (Auto) (0.30-0.82) K/mm3 Eos # (Auto) (0.04-0.54) K/mm3 Baso # (Auto) (0.01-0.08) K/mm3 Manual Slide Review PT (9.5-12.1) SECONDS INR Puncture Site Lt radial ABG pH 7.30 L (7.35-7.45) ABG pCO2 28.8 L (35.0-45.0) mmHg ABG pO2 85.0 (80.0-100.0) mmHg ABG HCO3 13.8 L (22.0-26.0) meq/L ABG O2 Saturation 97.8 H (96.0-97.0) % ABG Base Excess -11.1 L (-2-2.0) Fabian Test Positive A-a Gradient 103 mmHg O2 Delivery Device Ventilator FiO2 0.00 L (21.00-100.00) % PEEP 5.0 cmH20 Pressure Support 0.0 cmH2O Sodium (136-145) mEq/L Potassium (3.5-5.1) mEq/L Chloride (98-107) mEq/L Carbon Dioxide (21-32) mEq/L Anion Gap (5-15) BUN (7-18) mg/dL Creatinine (0.7-1.3) mg/dL Est Cr Clr Drug Dosing mL/min Estimated GFR (MDRD) (>60) mL/min BUN/Creatinine Ratio (14-18) Glucose (74-106) mg/dL POC Glucose 280 H 297 H (70-105) mg/dL Calcium (8.5-10.1) mg/dL Magnesium (1.8-2.4) mg/dl Ammonia (11-32) umol/L C-Reactive Protein (<1.0) mg/dL 12/03/18 12/04/18 12/04/18 Range/Units 17:15 00:01 05:35 WBC 7.96 (4.23-9.07) K/mm3 RBC 2.73 L (4.63-6.08) M/mm3 Hgb 9.0 L (13.7-17.5) gm/L Hct 27.6 L (40.1-51.0) % MCV 101.1 H (79.0-92.2) fl MCH 33.0 H (25.7-32.2) pg MCHC 32.6 (32.2-35.5) g/dl RDW Std Deviation 57.4 H (35.1-43.9) fL Plt Count 48 L (163-337) K/mm3 MPV 10.8 (9.4-12.3) fl Neut % (Auto) 89.1 H (34.0-67.9) % Lymph % (Auto) 7.2 L (21.8-53.1) % [place] % (Auto) 3.3 L (5.3-12.2) % Eos % (Auto) 0.1 L (0.8-7.0) Baso % (Auto) 0.0 L (0.1-1.2) % Neut # (Auto) 7.10 H (1.78-5.38) K/mm3 Lymph # (Auto) 0.57 L (1.32-3.57) K/mm3 [place] # (Auto) 0.26 L (0.30-0.82) K/mm3 Eos # (Auto) 0.01 L (0.04-0.54) K/mm3 Baso # (Auto) 0.00 L (0.01-0.08) K/mm3 Manual Slide Review Abnormal smear PT (9.5-12.1) SECONDS INR Puncture Site ABG pH (7.35-7.45) ABG pCO2 (35.0-45.0) mmHg ABG pO2 (80.0-100.0) mmHg ABG HCO3 (22.0-26.0) meq/L ABG O2 Saturation (96.0-97.0) % ABG Base Excess (-2-2.0) Fabian Test A-a Gradient mmHg O2 Delivery Device FiO2 (21.00-100.00) % PEEP cmH20 Pressure Support cmH2O Sodium (136-145) mEq/L Potassium (3.5-5.1) mEq/L Chloride (98-107) mEq/L Carbon Dioxide (21-32) mEq/L Anion Gap (5-15) BUN (7-18) mg/dL Creatinine (0.7-1.3) mg/dL Est Cr Clr Drug Dosing mL/min Estimated GFR (MDRD) (>60) mL/min BUN/Creatinine Ratio (14-18) Glucose (74-106) mg/dL POC Glucose 266 H 288 H (70-105) mg/dL Calcium (8.5-10.1) mg/dL Magnesium (1.8-2.4) mg/dl Ammonia (11-32) umol/L C-Reactive Protein (<1.0) mg/dL 12/04/18 12/04/18 12/04/18 Range/Units 05:35 05:35 05:35 WBC (4.23-9.07) K/mm3 RBC (4.63-6.08) M/mm3 Hgb (13.7-17.5) gm/L Hct (40.1-51.0) % MCV (79.0-92.2) fl MCH (25.7-32.2) pg MCHC (32.2-35.5) g/dl RDW Std Deviation (35.1-43.9) fL Plt Count (163-337) K/mm3 MPV (9.4-12.3) fl Neut % (Auto) (34.0-67.9) % Lymph % (Auto) (21.8-53.1) % [place] % (Auto) (5.3-12.2) % Eos % (Auto) (0.8-7.0) Baso % (Auto) (0.1-1.2) % Neut # (Auto) (1.78-5.38) K/mm3 Lymph # (Auto) (1.32-3.57) K/mm3 [place] # (Auto) (0.30-0.82) K/mm3 Eos # (Auto) (0.04-0.54) K/mm3 Baso # (Auto) (0.01-0.08) K/mm3 Manual Slide Review PT 16.1 H (9.5-12.1) SECONDS INR 1.49 Puncture Site ABG pH (7.35-7.45) ABG pCO2 (35.0-45.0) mmHg ABG pO2 (80.0-100.0) mmHg ABG HCO3 (22.0-26.0) meq/L ABG O2 Saturation (96.0-97.0) % ABG Base Excess (-2-2.0) Fabian Test A-a Gradient mmHg O2 Delivery Device FiO2 (21.00-100.00) % PEEP cmH20 Pressure Support cmH2O Sodium 144 (136-145) mEq/L Potassium 4.1 (3.5-5.1) mEq/L Chloride 116 H (98-107) mEq/L Carbon Dioxide 18 L (21-32) mEq/L Anion Gap 14.1 (5-15) BUN 38 H (7-18) mg/dL Creatinine 1.4 H (0.7-1.3) mg/dL Est Cr Clr Drug Dosing 58.80 mL/min Estimated GFR (MDRD) 52 (>60) mL/min BUN/Creatinine Ratio 27.1 H (14-18) Glucose 238 H (74-106) mg/dL POC Glucose (70-105) mg/dL Calcium 7.3 L (8.5-10.1) mg/dL Magnesium 2.2 (1.8-2.4) mg/dl Ammonia 15 (11-32) umol/L C-Reactive Protein (<1.0) mg/dL 12/04/18 12/04/18 12/04/18 Range/Units 05:35 06:06 06:14 WBC (4.23-9.07) K/mm3 RBC (4.63-6.08) M/mm3 Hgb (13.7-17.5) gm/L Hct (40.1-51.0) % MCV (79.0-92.2) fl MCH (25.7-32.2) pg MCHC (32.2-35.5) g/dl RDW Std Deviation (35.1-43.9) fL Plt Count (163-337) K/mm3 MPV (9.4-12.3) fl Neut % (Auto) (34.0-67.9) % Lymph % (Auto) (21.8-53.1) % [place] % (Auto) (5.3-12.2) % Eos % (Auto) (0.8-7.0) Baso % (Auto) (0.1-1.2) % Neut # (Auto) (1.78-5.38) K/mm3 Lymph # (Auto) (1.32-3.57) K/mm3 [place] # (Auto) (0.30-0.82) K/mm3 Eos # (Auto) (0.04-0.54) K/mm3 Baso # (Auto) (0.01-0.08) K/mm3 Manual Slide Review PT (9.5-12.1) SECONDS INR Puncture Site ABG pH (7.35-7.45) ABG pCO2 (35.0-45.0) mmHg ABG pO2 (80.0-100.0) mmHg ABG HCO3 (22.0-26.0) meq/L ABG O2 Saturation (96.0-97.0) % ABG Base Excess (-2-2.0) Fabian Test A-a Gradient mmHg O2 Delivery Device FiO2 (21.00-100.00) % PEEP cmH20 Pressure Support cmH2O Sodium (136-145) mEq/L Potassium (3.5-5.1) mEq/L Chloride (98-107) mEq/L Carbon Dioxide (21-32) mEq/L Anion Gap (5-15) BUN (7-18) mg/dL Creatinine (0.7-1.3) mg/dL Est Cr Clr Drug Dosing mL/min Estimated GFR (MDRD) (>60) mL/min BUN/Creatinine Ratio (14-18) Glucose (74-106) mg/dL POC Glucose 288 H 235 H (70-105) mg/dL Calcium (8.5-10.1) mg/dL Magnesium (1.8-2.4) mg/dl Ammonia (11-32) umol/L C-Reactive Protein 10.1 H* (<1.0) mg/dL Med Orders - Current: Current Medications Albuterol/Ipratropium (Duoneb 3.0-0.5 Mg/3 Ml) 3 ml NEB Q8HRRT [facility] Last Admin: 12/04/18 05:11 Dose: 3 ml Dexamethasone (Dexamethasone) 4 mg IVPUSH Q12H [facility]IRAJ Last Admin: 12/03/18 21:19 Dose: 4 mg Famotidine (Pepcid) 20 mg IVPUSH BID [facility] Last Admin: 12/03/18 21:22 Dose: 20 mg Furosemide (Lasix) 40 mg PO DAILY [facility] Last Admin: 12/03/18 08:00 Dose: 40 mg Piperacillin Sod/Tazobactam (Sod 4.5 gm/ Sodium Chloride) 100 mls @ 25 mls/hr IV Q8H [facility] Last Admin: 12/04/18 01:56 Dose: 25 mls/hr Levofloxacin/Dextrose 750 mg/ (Premix) 150 mls @ 100 mls/hr IV Q24H [facility] Last Admin: 12/03/18 14:23 Dose: 100 mls/hr Sodium Chloride (Normal Saline) 1,000 mls @ 75 mls/hr IV ASDIRECTED [facility] Last Admin: 12/04/18 05:47 Dose: 75 mls/hr Insulin Human Lispro (Humalog) 0 unit SUBCUT Q6HR [facility]; Protocol Last Admin: 12/04/18 06:27 Dose: 9 units Lactulose (Cephulac) 30 gm PO BID [facility] Last Admin: 12/03/18 21:21 Dose: Not Given Lorazepam (Ativan) 1 mg IVPUSH Q6H PRN PRN Reason: restlessness Last Admin: 12/03/18 23:31 Dose: 1 mg Morphine Sulfate (Morphine) 2 mg IVPUSH Q4H PRN PRN Reason: Shortness of Breath Last Admin: 12/03/18 21:12 Dose: 2 mg Racepinephrine (S-2 2.25%) 0.5 ml NEB TID [facility] Stop: 12/06/18 09:00 Last Admin: 12/04/18 08:15 Dose: 0.5 ml Racepinephrine (S-2 2.25%) 0.5 ml NEB Q4HRRT PRN PRN Reason: choking Last Admin: 12/03/18 17:46 Dose: 0.5 ml Rifaximin (Xifaxan) 550 mg PO BID [facility] Last Admin: 12/03/18 21:36 Dose: Not Given Saccharomyces Boulardii (Florastor) 250 mg PO BID [facility] Last Admin: 12/03/18 21:22 Dose: Not Given Sodium Chloride (Saline Flush) 10 ml FLUSH ASDIRECTED PRN PRN Reason: Keep Vein Open Last Admin: 11/30/18 16:56 Dose: 10 ml Sodium Chloride (Sodium Chloride 0.9%) 3 ml INH ASDIRECTED PRN PRN Reason: mix with racepinephrine neb Sodium Chloride (Sodium Chloride 0.9%) 0 ml INH TID [facility] Stop: 12/06/18 09:00 Last Admin: 12/03/18 20:23 Dose: 0.5 ml Spironolactone (Aldactone) 12.5 mg PO BID [facility] Last Admin: 12/03/18 21:21 Dose: Not Given Discontinued Medications Bumetanide (Bumex) 1 mg IVPUSH ONETIME ONE Stop: 12/03/18 16:12 Last Admin: 12/03/18 16:25 Dose: 1 mg Bumetanide (Bumex) 1 mg IVPUSH ONETIME ONE Stop: 12/03/18 21:01 Last Admin: 12/03/18 21:16 Dose: 1 mg Calcium Carbonate/Glycine (Calcium Carbonate) 1,200 mg PO ONETIME ONE Stop: 12/02/18 22:23 Last Admin: 12/02/18 22:42 Dose: 1,200 mg Calcium Gluconate (Calcium Gluconate) 1 gm IVPUSH ONETIME ONE Stop: 12/03/18 14:10 Last Admin: 12/03/18 14:47 Dose: Not Given Dexamethasone (Dexamethasone) 4 mg IVPUSH Q12H [facility] Last Admin: 12/03/18 05:48 Dose: 4 mg Erythromycin (Jed-Tab) 250 mg PO Q8HR [facility] Last Admin: 12/03/18 05:41 Dose: 250 mg Etomidate (Amidate) 30 mg IVPUSH ONETIME ONE Stop: 11/30/18 18:39 Last Admin: 11/30/18 18:52 Dose: 30 mg Famotidine (Pepcid) 20 mg IVPUSH ONETIME ONE Stop: 11/30/18 21:57 Last Admin: 11/30/18 22:26 Dose: 20 mg Furosemide (Lasix) 20 mg IVPUSH NOW ONE Stop: 12/01/18 23:01 Last Admin: 12/01/18 23:16 Dose: 20 mg Sodium Chloride (Normal Saline) 1,000 mls @ 125 mls/hr IV ASDIRECTED [facility] Last Admin: 11/30/18 16:55 Dose: 125 mls/hr Propofol (Diprivan 100 Ml) 100 mls @ 7.348 mls/hr IV TITRATE [facility]IRAJ; Protocol Last Titration: 12/01/18 11:09 Dose: 0 mcg/kg/min, 0 mls/hr Propofol (Diprivan 100 Ml) Confirm Administered Dose 100 mls @ as directed .ROUTE .STK-MED ONE Stop: 11/30/18 19:02 Last Admin: 11/30/18 19:15 Dose: Not Given Dextrose/Sodium Chloride (Dextrose 5%-Normal Saline) 1,000 mls @ 100 mls/hr IV ASDIRECTED [facility]IRAJ Last Admin: 12/01/18 09:20 Dose: 100 mls/hr Magnesium Sulfate 4 gm/ Premix 50 mls @ 12.5 mls/hr IV ONETIME ONE Stop: 12/01/18 13:28 Last Admin: 12/01/18 09:50 Dose: 12.5 mls/hr Magnesium Sulfate 4 gm/ Premix 50 mls @ 12.5 mls/hr IV ONETIME ONE Stop: 12/01/18 23:59 Last Admin: 12/01/18 19:58 Dose: 12.5 mls/hr Potassium Chloride/Sodium Chloride (Normal Saline With 20 Meq Kcl) 1,000 mls @ 100 mls/hr IV ASDIRECTED [facility]IRAJ Last Admin: 12/02/18 01:03 Dose: 100 mls/hr Potassium Chloride/Sodium Chloride (Normal Saline With 20 Meq Kcl) 500 mls @ 500 mls/hr IV ASDIRECTED [facility]IRAJ Stop: 12/01/18 19:29 Last Admin: 12/01/18 18:47 Dose: 500 mls/hr Piperacillin Sod/Tazobactam (Sod 4.5 gm/ Sodium Chloride) 100 mls @ 200 mls/hr IV ONETIME ONE Stop: 12/01/18 19:14 Last Admin: 12/01/18 19:14 Dose: 200 mls/hr Dextrose/Sodium Chloride (Dextrose 5%-Normal Saline) 1,000 mls @ 100 mls/hr IV ASDIRECTED [facility]IRAJ Last Admin: 12/02/18 05:46 Dose: 100 mls/hr Levofloxacin/Dextrose 750 mg/ (Premix) 150 mls @ 100 mls/hr IV ONETIME ONE Stop: 12/02/18 07:29 Last Admin: 12/02/18 08:46 Dose: Not Given Sodium Chloride (Normal Saline) 500 mls @ 999 mls/hr IV .BOLUS ONE Stop: 12/02/18 05:56 Last Admin: 12/02/18 05:45 Dose: 999 mls/hr Sodium Chloride (Normal Saline) Confirm Administered Dose 500 mls @ as directed .ROUTE .STK-MED ONE Stop: 12/02/18 05:45 Last Admin: 12/02/18 05:50 Dose: Not Given Norepinephrine Bitartrate 4 mg (/ Dextrose/Water) 250 mls @ 7.5 mls/hr IV TITRATE [facility]IRAJ; Protocol Last Titration: 12/02/18 11:17 Dose: 0 mcg/min, 0 mls/hr Levofloxacin/Dextrose 750 mg/ (Premix) 150 mls @ 100 mls/hr IV ONETIME ONE Stop: 12/02/18 13:29 Last Admin: 12/02/18 12:15 Dose: 100 mls/hr Sodium Chloride (Normal Saline) 2,000 mls @ 999 mls/hr IV ONETIME ONE Stop: 12/02/18 10:42 Last Admin: 12/02/18 09:11 Dose: 999 mls/hr Potassium Chloride/Sodium Chloride (Normal Saline With 20 Meq Kcl) 1,000 mls @ 150 mls/hr IV ASDIRECTED [facility]IRAJ Last Admin: 12/03/18 08:14 Dose: 150 mls/hr Dextrose/Sodium Chloride (Dextrose 5%-Normal Saline) 1,000 mls @ 150 mls/hr IV ASDIRECTED [facility]IRAJ Last Admin: 12/02/18 22:32 Dose: 150 mls/hr Sodium Chloride (Normal Saline) 100 mls @ 60 mls/hr IV ASDIRECTED [facility]IRAJ Last Admin: 12/02/18 14:44 Dose: 60 mls/hr Sodium Chloride (Normal Saline) 1,000 mls @ 999 mls/hr IV ONETIME ONE Stop: 12/02/18 15:18 Last Admin: 12/02/18 15:00 Dose: 999 mls/hr Levofloxacin/Dextrose 750 mg/ (Premix) 150 mls @ 100 mls/hr IV Q24H [facility]IRAJ Calcium Gluconate 1 gm/ Sodium (Chloride) 60 mls @ 120 mls/hr IV ONETIME ONE Stop: 12/03/18 15:29 Last Admin: 12/03/18 14:37 Dose: 100 mls/hr Insulin Human Lispro (Humalog) 0 unit SUBCUT Q6HR [facility]; Protocol Last Admin: 12/03/18 12:27 Dose: 9 unit Insulin Human Lispro (Humalog) 0 unit SUBCUT QIDACANDBED [facility]; Protocol Last Admin: 12/03/18 17:32 Dose: 9 units Iopamidol (Isovue-370 (76%)) 100 ml IV ONETIME ONE Stop: 12/02/18 07:40 Last Admin: 12/02/18 09:30 Dose: 100 ml Iopamidol (Isovue-370 (76%)) 100 ml IV ONETIME ONE Stop: 12/02/18 14:19 Last Admin: 12/02/18 14:44 Dose: 100 ml Lactulose (Cephulac) 60 gm NGTUBE ONETIME ONE Stop: 11/30/18 19:01 Last Admin: 11/30/18 19:52 Dose: 60 gm Lactulose (Cephulac) 60 gm PO ONETIME ONE Stop: 12/01/18 01:01 Last Admin: 12/01/18 01:00 Dose: 60 gm Lactulose (Cephulac) 45 gm PO Q6H [facility] Last Admin: 12/02/18 09:16 Dose: Not Given Methylprednisolone Sodium Succinate (Solu-Medrol) 125 mg IVPUSH Q8H [facility] Stop: 12/04/18 06:01 Last Admin: 12/04/18 05:40 Dose: 125 mg Midazolam HCl (Versed 1 Mg/Ml) 5 mg IVPUSH ONETIME ONE Stop: 11/30/18 19:30 Last Admin: 11/30/18 19:32 Dose: 5 mg Modafinil (Provigil) 200 mg PO DAILY [facility] Stop: 12/04/18 07:30 Last Admin: 12/03/18 08:00 Dose: 200 mg Modafinil (Provigil) 100 mg PO ONETIME ONE Stop: 12/02/18 20:45 Last Admin: 12/02/18 21:10 Dose: 100 mg Morphine Sulfate (Morphine) 1 mg IVPUSH ONETIME ONE Stop: 12/01/18 11:18 Last Admin: 12/01/18 11:37 Dose: 1 mg Morphine Sulfate (Morphine) 2 mg IVPUSH ONETIME ONE Stop: 12/01/18 16:46 Last Admin: 12/01/18 16:52 Dose: 2 mg Morphine Sulfate (Morphine) 1 mg IVPUSH ONETIME ONE Stop: 12/03/18 16:11 Last Admin: 12/03/18 16:24 Dose: 1 mg Racepinephrine (S-2 2.25%) 0.5 ml NEB Q4HRRT PRN PRN Reason: subglottic narrowing Sodium Chloride (Saline Flush) 10 ml FLUSH ONETIME ONE Stop: 12/02/18 07:40 Last Admin: 12/02/18 09:30 Dose: 10 ml Succinylcholine Chloride (Quelicin) 180 mg IV ONETIME ONE Stop: 11/30/18 18:46 Last Admin: 11/30/18 18:53 Dose: 180 mg - Exam General: Sedated HEENT: Pupils Equal, Pupils Reactive Neck: Supple Lungs: Decreased Breath Sounds, Crackles, Rhonchi Cardiovascular: Regular Rate, Regular Rhythm GI/Abdominal Exam: Normal Bowel Sounds, Soft, Non-Tender, No Abnormal Bruit, Distended (Male) Exam: Other (indwelling perez catheter) Back Exam: Other (deferred) Extremities: Normal Inspection, Non-Tender, Normal Capillary Refill, Pedal Edema Peripheral Pulses: 1+: Dorsalis Pedis (L), Dorsalis Pedis (R) Skin: Warm, Dry, Intact Neurological: Other (deferred) Psy/Mental Status: Other (deferred: not appropriate) - Problem List Review Problem List Initiated/Reviewed/Updated: Yes - My Orders Last 24 Hours: My Active Orders 12/03/18 09:00 Furosemide [Lasix] 40 mg PO DAILY Saccharomyces Boulardii [Florastor] 250 mg PO BID 12/03/18 09:34 Consult to Speech Language Pathology [COMPONENT ASSEMBLER Evaluation and Treatment] [CONS] Routine 12/03/18 13:40 Sodium Chloride 0.9% 3 ml INH ASDIRECTED PRN 12/03/18 13:45 RT Aerosol Therapy [RC] ASDIRECTED Racepinephrine [S-2 2.25%] 0.5 ml NEB Q4HRRT PRN 12/03/18 15:00 Levofloxacin/Dextrose 5%-Water [Levaquin in D5W 750 MG/150 ML] 750 mg Premix Bag 1 bag IV Q24H Racepinephrine [S-2 2.25%] 0.5 ml NEB TID Sodium Chloride 0.9% 0 ml INH TID 12/03/18 16:15 Sodium Chloride 0.9% [Normal Saline] 1,000 ml IV ASDIRECTED 12/03/18 21:00 Dexamethasone 4 mg IVPUSH Q12H 12/03/18 Dinner NPO [Nothing Per Oral Diet] [DIET] 12/04/18 00:00 Insulin Lispro [HumaLOG] See Protocol SUBCUT Q6HR 12/05/18 05:11 CRP [C-REACTIVE PROTEIN] [CHEM] AM INR,PT,PROTHROMBIN TIME [COAG] AM - Plan Plan:: Assessment/Plan: Acute: Hepatic Encephalopathy - Acute on Chronic - 2/2 Advanced Liver Disease and Medical Non-compliance - Ammonia level is 167--> now 48; However Bilirubin level is trending up-- Now at 4.4 - Unsure if he is taking his home meds; reportedly just returned home from a long trip - Resume Home Meds as ordered - Continue Lactulose and Xifaxan; He is also on oral erythromycin likely for treatment - Monitor Ammonia level - Avoid NSAIDs - Repeat Head CT scan this AM report reads no acute intra-cranial abnormality - MVI, Folic and Thiamine Supplement when able to swallow - Continue IV Dexamethasone 4 mg IV BID; discontinue in AM Cholestasis, Improving - T. Bilirubin 4.4-->3.4 -->2.5 - Has underlying liver failure - Risk factors: DM2 and Medications - Continue IV steroid Permissive Hyperglycemia in Type II DM - BS still in the in the 200s - He is NPO since admission; consider some form of sustenance in AM if he does not meet criteria for extubation - Hold home PO meds until mental status improves -> resume as ordered - Accu-check Q6H with ISS coverage - A1C 6.3 (improved from 7.4 on 08/01/19) Bibasilar Pneumonia w/ Small Pleural Effusion - CTA report reads parenchymal densities within both lung bases; R>>L - Continue IV Zosyn and Levaquin for pharmacy to dose; discontinue after total of 5 day treatment - IS as directed - Serial CXR as indicated Hypocalcemia - Ca 7.1--> 6.9-->7.3 - 2/2 GI loss and NPO status - Replete and monitor Subglottic Narrowing S/p Extubation - IV Steroid and Scheduled/PRN Racemic Epinephrine - Repeat CXR shows improved abnormal findings Abnormal head CT compare to 11/30/18 -CT obtained in ED 11/13/18 * 1. Mild small vessel ischemic demyelination change. * 2. Questionable diminished density within the cerebellum on both sides, worse on the left side possibly due to additional small vessel ischemic demyelination change but difficult to completely exclude early ischemic infarct. MRI study with diffusion would be helpful to confirm or rule out this possibility. * 3. No acute intracranial hemorrhage or other abnormality is seen. -MRI obtained 11/13/18: * 1. Mild small vessel ischemic demyelination change within the subcortical white matter. * 2. No abnormal signal is seen within the cerebellar hemispheres and prior CT finding most likely represents B Scott artifact. * 3. No acute diffusion abnormalities are seen -CT Abdominal/Pelvis 12/02/2018 * 1. Cirrhotic change within the liver with splenomegaly * 2. Minimal pleural effusion seen around a portion of the liver * 3. Nothing acute is appreciated Resolved: S/p Hypomagnesemia - Magnesium-repace as needed - 2/2 inadequate intake S/P ETT on propofol drip, mild sedation; Nebs scheduled; NGT placed with low intermittent suction. - CXR q AM. HOB>40 degrees. - ABG looks good this AM; will try to extubate him - He is now off propofol drip Chronic: Advanced Liver Disease from Long Hx/o ETOH Abuse Hx/o Esophageal Varices S/p TIPS Pancytopenia 2/2 Liver Disease, Platelet and Hgb at baseline Hypoalbuminemia, 2/2 Liver Disease Albumin level at baseline DM2, Accu-check QID with ISS (will increased level to high) Hyperbilirubinemia/Cholestasis, 2/2 Advanced Liver Disease Obesity with BMI of 38 GERD Chronic Back Pain GI bleeds from Intestinal Varices and Hemorrhoids Thrombocytopenia Hepatic encephalopathy Hypothyroidism Eczema Plan: He is alert this AM expect because he was NPO all day yesterday after extubation Routine AM labs Dietary consult for weight and protein wasting management Aspiration precautions GI PPx: H2B PT/OT consult once appropriate Xarelto 1 tab po for pharmacy to renally dose for DVT prophylaxis behavioral health worker/CM for discharge planning Consider NGT placement so we we administer his oral medications; We'll avoid TPN if all possible but will discuss with dietary; hopefully he will perk up today and we can have COMPONENT ASSEMBLER evaluate him Code status: Full code; PCP: [facility] - Patient Instructions Diet: Diabetic Diet Activity: As Tolerated Notify Provider of: Fever, Increased Pain, Nausea and/or Vomiting - Discharge Plan *PRESCRIPTION DRUG MONITORING PROGRAM REVIEWED*: No *COPY OF PRESCRIPTION DRUG MONITORING REPORT IN PATIENT RAVI: No
[2018-12-04] MEDS: Dexamethasone 4 MG/ML SDV IVPUSH SCH ×2 (09:39→20:35)
[2018-12-04] MEDS: Furosemide 40 MG Tab PO SCH (09:42)
[2018-12-04] MEDS: Saccharomyces Boulardii (Probiotic) 250 MG Cap PO SCH ×2 (09:42→20:45)
[2018-12-04] MEDS: Lactulose Soln 10 GM/15 ML 30 ML UD Cup PO SCH ×3 (09:42→20:45)
[2018-12-04] MEDS: Spironolactone 25 MG Tab PO SCH ×2 (09:42→20:44)
[2018-12-04] MEDS: Rifaximin 550 MG Tab PO SCH ×3 (09:42→20:46)
[2018-12-04] MEDS: Famotidine 20 MG/2 ML SDV IVPUSH SCH ×2 (09:45→20:32)
[2018-12-04] MEDS: Racepinephrine 2.25% 0.5 ML Neb Soln NEB PRN (12:04)
[2018-12-04] MEDS ORDERED: Bumetanide 1 MG/4 ML MDV IVPUSH ONE (13:24)
[2018-12-04] MEDS ORDERED: Modafinil 200 MG Tab PO STA (13:27)
[2018-12-04] MEDS ORDERED: Racepinephrine 2.25% 0.5 ML Neb Soln NEB ONE (13:40)
[2018-12-04] MEDS ORDERED: Sodium Chloride 0.9% Inhalation Soln 3 ML Neb INH PRN (13:40)
--- NOTE | 2018-12-04 14:43 | CR ---
Chest: Portable view of the chest was obtained. Comparison: Prior chest x-ray performed earlier on the same day (8:38 AM). Mass-like density is noted within the right mid lung. This presumably represents mild area of residual pneumonia. Pulmonary vessels are congested. Heart is enlarged. Tortuous thoracic aorta is seen. Tip of nasogastric tube is difficult to see but appears to descend below the diaphragm. Impression: 1. Mass-like density within the right mid lung presumably representing residual pneumonia. Continued follow-up recommended to make sure this resolves and does not represent a neoplastic origin. Prior CT was reviewed but this is not appreciated on previous exam due to other superimposed densities. 2. Continuing pulmonary vascular congestion and cardiomegaly. 3. Tip of nasogastric tube not well seen but appears to descend below the diaphragm. Diagnostic code #3
--- NOTE | 2018-12-04 15:03 | CR ---
Chest: Frontal view of the chest was obtained. Study centered more towards the diaphragm. Endotracheal tube is seen. Tip lies slightly below the diaphragm and should be advanced by another 5 cm for optimal position. Impression: 1. Findings as noted above. Diagnostic code #2
[2018-12-04] MEDS: Levofloxacin/Dextrose 5%-Water 750 MG in Premix Bag 1 BAG IV SCH (15:46)
[2018-12-04] MEDS: Morphine 2 MG/ML Syringe IVPUSH PRN ×2 (17:06→21:11)
[2018-12-04] MEDS ORDERED: Sodium Chloride 0.9% 1,000 ML IV SCH (18:15)
[2018-12-04] MEDS: Bumetanide 1 MG/4 ML MDV IVPUSH SCH (20:37)
--- NOTE | 2018-12-04 21:14 | PCM.SN ---
- Free Text/Narrative Note: Patient is now starting to come around. He is a little more alert and awake. He has NGT that was put in earlier today. He was altered all day due to NPO status. He did not receive his lactulose and xifaxan yesterday due to subglottic narrowing s/p extubation. Pharmacy is unable to obtain rectal lactulose for us to decided then for NGT placement so he get all his hepatic encephalopathy medications.
[2018-12-04] MEDS ORDERED: Rivaroxaban 10 MG Tab PO ONE (21:27)
[2018-12-04] MEDS ORDERED: Calcium Carbonate 500 MG Tab.Chew PO ONE (21:32)
[2018-12-04] MEDS: LORazepam 2 MG/ML SDV IVPUSH PRN (21:39)
[2018-12-04] MEDS: Insulin Glarg,Human.Rec.Analog 100 UNIT/ML ML SUBCUT SCH (22:31)
[2018-12-04] MEDS: Acetaminophen/HYDROcodone 325-5 MG Tab PO PRN (23:11)
[2018-12-05] MEDS: Insulin Lispro 100 Units/ML 3 ML Vial SUBCUT SCH ×5 (00:24→23:22)
[2018-12-05] MEDS: Piperacillin/Tazobactam 4.5 GM in Sodium Chloride 0.9% 100 ML IV SCH ×3 (01:00→18:19)
[2018-12-05] MEDS: Morphine 2 MG/ML Syringe IVPUSH PRN (06:10)
[2018-12-05] MEDS: Albuterol/Ipratropium 3.0-0.5 MG/3 ML Neb Soln NEB SCH ×3 (06:42→21:25)
[2018-12-05] MEDS: Racepinephrine 2.25% 0.5 ML Neb Soln NEB SCH ×3 (08:15→20:23)
[2018-12-05] MEDS: Sodium Chloride 0.9% Inhalation Soln 3 ML Neb INH SCH ×3 (08:16→20:23)
[2018-12-05] MEDS: Famotidine 20 MG/2 ML SDV IVPUSH SCH ×2 (09:00→20:04)
[2018-12-05] MEDS ORDERED: Rivaroxaban 10 MG Tab PO SCH (09:00)
--- NOTE | 2018-12-05 09:01 | CR ---
Chest: Portable view of the chest was obtained. Comparison: Prior chest x-ray of 12/04/18. Heart is enlarged. Tortuous thoracic aorta is seen. Pulmonary vessels remain slightly congested. Slight nodular mass-like density within the right mid lung remains. Nasogastric tube is seen with tip lying within the stomach. Impression: 1. Findings as noted above. No change from previous study. Diagnostic code #2
[2018-12-05] MEDS: Dexamethasone 4 MG/ML SDV IVPUSH SCH (09:04)
[2018-12-05] MEDS: Bumetanide 1 MG/4 ML MDV IVPUSH SCH ×2 (09:07→20:03)
[2018-12-05] MEDS: Rifaximin 550 MG Tab PO SCH ×2 (09:09→20:06)
[2018-12-05] MEDS: Saccharomyces Boulardii (Probiotic) 250 MG Cap PO SCH ×2 (09:09→20:06)
[2018-12-05] MEDS: Modafinil 200 MG Tab PO SCH (09:10)
[2018-12-05] MEDS: Spironolactone 25 MG Tab PO SCH ×2 (09:11→20:01)
[2018-12-05] MEDS: Furosemide 40 MG Tab PO SCH (09:11)
[2018-12-05] MEDS: Lactulose Soln 10 GM/15 ML 30 ML UD Cup PO SCH ×3 (09:12→20:06)
[2018-12-05] MEDS: Insulin Glarg,Human.Rec.Analog 100 UNIT/ML ML SUBCUT SCH ×2 (09:29→20:00)
[2018-12-05] MEDS: Acetaminophen/HYDROcodone 325-5 MG Tab PO PRN ×2 (11:20→18:16)
--- NOTE | 2018-12-05 12:20 | CT ---
CT chest Technique: Multiple axial sections through the chest were obtained. Comparison: Prior chest CT study of 12/02/18. Findings: Patchy areas of alveolar densities are seen throughout both sides of the chest. Findings have worsened from prior study with the exception of slight improvement within density noted previously within the right base. No discrete mass is seen as suggested on plain film study. Small pleural effusion with very minimal trace left-sided pleural effusion is seen. Stent is noted within the right pulmonary artery. Gynecomastia again seen. TIPS stent is present. Diffuse body wall edema is seen. Impression: 1. Improved right lower lobe parenchymal density with worsening bilateral patchy areas of alveolar density within both lungs. Findings could represent multifocal pneumonia as well as patchy areas of pulmonary edema. 2. No mass is definitely appreciated on this exam. 3. Small right sided pleural effusion and other incidental findings. Diagnostic code #3
[2018-12-05] MEDS: Levofloxacin/Dextrose 5%-Water 750 MG in Premix Bag 1 BAG IV SCH (15:11)
--- NOTE | 2018-12-05 15:55 | PCM.PN ---
- General Info Date of Service: 12/05/18 Admission Dx/Problem (Free Text): Admission Diagnosis/Problem Admission Diagnosis/Problem Cirrhosis of liver Subjective Update: Follow Up Functional Status: Reports: Pain Controlled, Urinating, New Symptoms - Review of Systems General: Reports: Weakness. Denies: Fever, Chills HEENT: Reports: No Symptoms Pulmonary: Denies: Shortness of Breath Cardiovascular: Denies: Chest Pain Gastrointestinal: Reports: Hematochezia. Denies: Abdominal Pain, Nausea, Vomiting Genitourinary: Reports: No Symptoms Musculoskeletal: Reports: Back Pain Skin: Reports: Jaundice. Denies: Cyanosis, Mottled, Pallor, Diaphoresis, Bruising Neurological: Reports: Weakness, Gait Disturbance Psychiatric: Denies: Depression, Anxiety, Agitation, Hallucinations Systems Review Comment:: No significant overnight issues. He was somewhat restless early this morning so he received Morphine IVP x1. As a result, he was somnolent. However sometime this afternoon he become completely lucid and he was evaluated by [employer] and now was able to have his first meal finally since admission. His BS remains in the 200s. - Patient Data Vitals - Most Recent: Last Vital Signs Temp 37.2 C 12/05/18 12:00 Pulse 98 12/05/18 04:00 Resp 21 H 12/05/18 14:00 BP 129/71 12/05/18 12:00 Pulse Ox 100 12/05/18 14:23 Weight - Most Recent: 131.587 kg I&O - Last 24 Hours: Intake & Output 12/05/18 12/05/18 12/05/18 06:59 14:59 22:59 Intake Total 340 340 Output Total 310 725 Balance 30 -385 Lab Results Last 24 Hours: Laboratory Results - last 24 hr 12/04/18 12/04/18 12/05/18 Range/Units 18:38 22:24 00:12 WBC (4.23-9.07) K/mm3 RBC (4.63-6.08) M/mm3 Hgb (13.7-17.5) gm/L Hct (40.1-51.0) % MCV (79.0-92.2) fl MCH (25.7-32.2) pg MCHC (32.2-35.5) g/dl RDW Std Deviation (35.1-43.9) fL Plt Count (163-337) K/mm3 MPV (9.4-12.3) fl Neut % (Auto) (34.0-67.9) % Lymph % (Auto) (21.8-53.1) % Porter % (Auto) (5.3-12.2) % Eos % (Auto) (0.8-7.0) Baso % (Auto) (0.1-1.2) % Neut # (Auto) (1.78-5.38) K/mm3 Lymph # (Auto) (1.32-3.57) K/mm3 Porter # (Auto) (0.30-0.82) K/mm3 Eos # (Auto) (0.04-0.54) K/mm3 Baso # (Auto) (0.01-0.08) K/mm3 Manual Slide Review PT (9.5-12.1) SECONDS INR POC Glucose 285 H 217 H 238 H (70-105) mg/dL Magnesium (1.8-2.4) mg/dl Ammonia (11-32) umol/L C-Reactive Protein (<1.0) mg/dL 12/05/18 12/05/18 12/05/18 Range/Units 06:08 07:45 07:45 WBC 5.22 (4.23-9.07) K/mm3 RBC 2.81 L (4.63-6.08) M/mm3 Hgb 9.3 L (13.7-17.5) gm/L Hct 28.2 L (40.1-51.0) % MCV 100.4 H (79.0-92.2) fl MCH 33.1 H (25.7-32.2) pg MCHC 33.0 (32.2-35.5) g/dl RDW Std Deviation 55.6 H (35.1-43.9) fL Plt Count 39 L (163-337) K/mm3 MPV 9.8 (9.4-12.3) fl Neut % (Auto) 90.0 H (34.0-67.9) % Lymph % (Auto) 5.2 L (21.8-53.1) % Porter % (Auto) 4.2 L (5.3-12.2) % Eos % (Auto) 0 L (0.8-7.0) Baso % (Auto) 0.0 L (0.1-1.2) % Neut # (Auto) 4.70 (1.78-5.38) K/mm3 Lymph # (Auto) 0.27 L (1.32-3.57) K/mm3 Porter # (Auto) 0.22 L (0.30-0.82) K/mm3 Eos # (Auto) 0.00 L (0.04-0.54) K/mm3 Baso # (Auto) 0.00 L (0.01-0.08) K/mm3 Manual Slide Review Abnormal smear PT (9.5-12.1) SECONDS INR POC Glucose 197 H (70-105) mg/dL Magnesium 2.3 (1.8-2.4) mg/dl Ammonia (11-32) umol/L C-Reactive Protein (<1.0) mg/dL 12/05/18 12/05/18 12/05/18 Range/Units 07:45 07:45 07:45 WBC (4.23-9.07) K/mm3 RBC (4.63-6.08) M/mm3 Hgb (13.7-17.5) gm/L Hct (40.1-51.0) % MCV (79.0-92.2) fl MCH (25.7-32.2) pg MCHC (32.2-35.5) g/dl RDW Std Deviation (35.1-43.9) fL Plt Count (163-337) K/mm3 MPV (9.4-12.3) fl Neut % (Auto) (34.0-67.9) % Lymph % (Auto) (21.8-53.1) % Porter % (Auto) (5.3-12.2) % Eos % (Auto) (0.8-7.0) Baso % (Auto) (0.1-1.2) % Neut # (Auto) (1.78-5.38) K/mm3 Lymph # (Auto) (1.32-3.57) K/mm3 Porter # (Auto) (0.30-0.82) K/mm3 Eos # (Auto) (0.04-0.54) K/mm3 Baso # (Auto) (0.01-0.08) K/mm3 Manual Slide Review PT 22.1 H (9.5-12.1) SECONDS INR 2.06 POC Glucose (70-105) mg/dL Magnesium (1.8-2.4) mg/dl Ammonia 13 (11-32) umol/L C-Reactive Protein 5.9 H* (<1.0) mg/dL 12/05/18 Range/Units 12:23 WBC (4.23-9.07) K/mm3 RBC (4.63-6.08) M/mm3 Hgb (13.7-17.5) gm/L Hct (40.1-51.0) % MCV (79.0-92.2) fl MCH (25.7-32.2) pg MCHC (32.2-35.5) g/dl RDW Std Deviation (35.1-43.9) fL Plt Count (163-337) K/mm3 MPV (9.4-12.3) fl Neut % (Auto) (34.0-67.9) % Lymph % (Auto) (21.8-53.1) % Porter % (Auto) (5.3-12.2) % Eos % (Auto) (0.8-7.0) Baso % (Auto) (0.1-1.2) % Neut # (Auto) (1.78-5.38) K/mm3 Lymph # (Auto) (1.32-3.57) K/mm3 Porter # (Auto) (0.30-0.82) K/mm3 Eos # (Auto) (0.04-0.54) K/mm3 Baso # (Auto) (0.01-0.08) K/mm3 Manual Slide Review PT (9.5-12.1) SECONDS INR POC Glucose 231 H (70-105) mg/dL Magnesium (1.8-2.4) mg/dl Ammonia (11-32) umol/L C-Reactive Protein (<1.0) mg/dL Med Orders - Current: Current Medications Hydrocodone Bitart/Acetaminophen ([place] 325-5 Mg) 1 tab PO Q4H PRN PRN Reason: Pain (moderate 4-6) Last Admin: 12/05/18 11:20 Dose: 1 tab Albuterol/Ipratropium (Duoneb 3.0-0.5 Mg/3 Ml) 3 ml NEB Q8HRRT [facility] Last Admin: 12/05/18 14:21 Dose: 3 ml Bumetanide (Bumex) 0.5 mg IVPUSH BID [facility] Last Admin: 12/05/18 09:07 Dose: 0.5 mg Famotidine (Pepcid) 20 mg IVPUSH BID [facility] Last Admin: 12/05/18 09:00 Dose: 20 mg Piperacillin Sod/Tazobactam (Sod 4.5 gm/ Sodium Chloride) 100 mls @ 25 mls/hr IV Q8H [facility] Last Admin: 12/05/18 09:31 Dose: 25 mls/hr Levofloxacin/Dextrose 750 mg/ (Premix) 150 mls @ 100 mls/hr IV Q24H [facility] Last Admin: 12/05/18 15:11 Dose: 100 mls/hr Sodium Chloride (Normal Saline) 1,000 mls @ 25 mls/hr IV ASDIRECTED [facility] Last Admin: 12/04/18 18:15 Dose: 25 mls/hr Insulin Glargine (Lantus) 10 unit SUBCUT BID [facility] Last Admin: 12/05/18 09:29 Dose: 10 units Insulin Human Lispro (Humalog) 0 unit SUBCUT Q6HR [facility]; Protocol Last Admin: 12/05/18 12:25 Dose: 6 units Lactulose (Cephulac) 30 gm PO TID [facility] Last Admin: 12/05/18 15:14 Dose: 30 gm Lorazepam (Ativan) 1 mg IVPUSH Q6H PRN PRN Reason: restlessness Last Admin: 12/04/18 21:39 Dose: 1 mg Modafinil (Provigil) 200 mg PO DAILY [facility] Last Admin: 12/05/18 09:10 Dose: 200 mg Morphine Sulfate (Morphine) 1 mg IVPUSH Q4H PRN PRN Reason: Shortness of Breath Last Admin: 12/05/18 06:10 Dose: 1 mg Racepinephrine (S-2 2.25%) 0.5 ml NEB TID [facility] Stop: 12/06/18 09:00 Last Admin: 12/05/18 14:21 Dose: 0.5 ml Racepinephrine (S-2 2.25%) 0.5 ml NEB Q4HRRT PRN PRN Reason: choking Last Admin: 12/04/18 12:04 Dose: 0.5 ml Rifaximin (Xifaxan) 550 mg PO BID [facility] Last Admin: 12/05/18 09:09 Dose: 550 mg Saccharomyces Boulardii (Florastor) 250 mg PO BID [facility] Last Admin: 12/05/18 09:09 Dose: 250 mg Sodium Chloride (Saline Flush) 10 ml FLUSH ASDIRECTED PRN PRN Reason: Keep Vein Open Last Admin: 11/30/18 16:56 Dose: 10 ml Sodium Chloride (Sodium Chloride 0.9%) 3 ml INH ASDIRECTED PRN PRN Reason: mix with racepinephrine neb Sodium Chloride (Sodium Chloride 0.9%) 0 ml INH TID [facility] Stop: 12/06/18 09:00 Last Admin: 12/05/18 14:21 Dose: 3 ml Spironolactone (Aldactone) 12.5 mg PO BID [facility] Last Admin: 12/05/18 09:11 Dose: 12.5 mg Discontinued Medications Bumetanide (Bumex) 1 mg IVPUSH ONETIME ONE Stop: 12/03/18 16:12 Last Admin: 12/03/18 16:25 Dose: 1 mg Bumetanide (Bumex) 1 mg IVPUSH ONETIME ONE Stop: 12/03/18 21:01 Last Admin: 12/03/18 21:16 Dose: 1 mg Bumetanide (Bumex) 1 mg IVPUSH ONETIME ONE Stop: 12/04/18 13:25 Last Admin: 12/04/18 14:36 Dose: 1 mg Calcium Carbonate/Glycine (Calcium Carbonate) 1,200 mg PO ONETIME ONE Stop: 12/02/18 22:23 Last Admin: 12/02/18 22:42 Dose: 1,200 mg Calcium Carbonate/Glycine (Tums) 1,000 mg PO ONETIME ONE Stop: 12/04/18 21:33 Last Admin: 12/04/18 22:32 Dose: 1,000 mg Calcium Gluconate (Calcium Gluconate) 1 gm IVPUSH ONETIME ONE Stop: 12/03/18 14:10 Last Admin: 12/03/18 14:47 Dose: Not Given Dexamethasone (Dexamethasone) 4 mg IVPUSH Q12H [facility] Last Admin: 12/03/18 05:48 Dose: 4 mg Dexamethasone (Dexamethasone) 4 mg IVPUSH Q12H [facility] Stop: 12/05/18 09:30 Last Admin: 12/05/18 09:04 Dose: 4 mg Erythromycin (Jed-Tab) 250 mg PO Q8HR [facility] Last Admin: 12/03/18 05:41 Dose: 250 mg Etomidate (Amidate) 30 mg IVPUSH ONETIME ONE Stop: 11/30/18 18:39 Last Admin: 11/30/18 18:52 Dose: 30 mg Famotidine (Pepcid) 20 mg IVPUSH ONETIME ONE Stop: 11/30/18 21:57 Last Admin: 11/30/18 22:26 Dose: 20 mg Furosemide (Lasix) 20 mg IVPUSH NOW ONE Stop: 12/01/18 23:01 Last Admin: 12/01/18 23:16 Dose: 20 mg Furosemide (Lasix) 40 mg PO DAILY [facility] Last Admin: 12/05/18 09:11 Dose: 40 mg Sodium Chloride (Normal Saline) 1,000 mls @ 125 mls/hr IV ASDIRECTED [facility] Last Admin: 11/30/18 16:55 Dose: 125 mls/hr Propofol (Diprivan 100 Ml) 100 mls @ 7.348 mls/hr IV TITRATE [facility]; Protocol Last Titration: 12/01/18 11:09 Dose: 0 mcg/kg/min, 0 mls/hr Propofol (Diprivan 100 Ml) Confirm Administered Dose 100 mls @ as directed .ROUTE .STK-MED ONE Stop: 11/30/18 19:02 Last Admin: 11/30/18 19:15 Dose: Not Given Dextrose/Sodium Chloride (Dextrose 5%-Normal Saline) 1,000 mls @ 100 mls/hr IV ASDIRECTED [facility] Last Admin: 12/01/18 09:20 Dose: 100 mls/hr Magnesium Sulfate 4 gm/ Premix 50 mls @ 12.5 mls/hr IV ONETIME ONE Stop: 12/01/18 13:28 Last Admin: 12/01/18 09:50 Dose: 12.5 mls/hr Magnesium Sulfate 4 gm/ Premix 50 mls @ 12.5 mls/hr IV ONETIME ONE Stop: 12/01/18 23:59 Last Admin: 12/01/18 19:58 Dose: 12.5 mls/hr Potassium Chloride/Sodium Chloride (Normal Saline With 20 Meq Kcl) 1,000 mls @ 100 mls/hr IV ASDIRECTED [facility] Last Admin: 12/02/18 01:03 Dose: 100 mls/hr Potassium Chloride/Sodium Chloride (Normal Saline With 20 Meq Kcl) 500 mls @ 500 mls/hr IV ASDIRECTED [facility] Stop: 12/01/18 19:29 Last Admin: 12/01/18 18:47 Dose: 500 mls/hr Piperacillin Sod/Tazobactam (Sod 4.5 gm/ Sodium Chloride) 100 mls @ 200 mls/hr IV ONETIME ONE Stop: 12/01/18 19:14 Last Admin: 12/01/18 19:14 Dose: 200 mls/hr Dextrose/Sodium Chloride (Dextrose 5%-Normal Saline) 1,000 mls @ 100 mls/hr IV ASDIRECTED [facility] Last Admin: 12/02/18 05:46 Dose: 100 mls/hr Levofloxacin/Dextrose 750 mg/ (Premix) 150 mls @ 100 mls/hr IV ONETIME ONE Stop: 12/02/18 07:29 Last Admin: 12/02/18 08:46 Dose: Not Given Sodium Chloride (Normal Saline) 500 mls @ 999 mls/hr IV .BOLUS ONE Stop: 12/02/18 05:56 Last Admin: 12/02/18 05:45 Dose: 999 mls/hr Sodium Chloride (Normal Saline) Confirm Administered Dose 500 mls @ as directed .ROUTE .STK-MED ONE Stop: 12/02/18 05:45 Last Admin: 12/02/18 05:50 Dose: Not Given Norepinephrine Bitartrate 4 mg (/ Dextrose/Water) 250 mls @ 7.5 mls/hr IV TITRATE [facility]; Protocol Last Titration: 12/02/18 11:17 Dose: 0 mcg/min, 0 mls/hr Levofloxacin/Dextrose 750 mg/ (Premix) 150 mls @ 100 mls/hr IV ONETIME ONE Stop: 12/02/18 13:29 Last Admin: 12/02/18 12:15 Dose: 100 mls/hr Sodium Chloride (Normal Saline) 2,000 mls @ 999 mls/hr IV ONETIME ONE Stop: 12/02/18 10:42 Last Admin: 12/02/18 09:11 Dose: 999 mls/hr Potassium Chloride/Sodium Chloride (Normal Saline With 20 Meq Kcl) 1,000 mls @ 150 mls/hr IV ASDIRECTED [facility] Last Admin: 12/03/18 08:14 Dose: 150 mls/hr Dextrose/Sodium Chloride (Dextrose 5%-Normal Saline) 1,000 mls @ 150 mls/hr IV ASDIRECTED [facility] Last Admin: 12/02/18 22:32 Dose: 150 mls/hr Sodium Chloride (Normal Saline) 100 mls @ 60 mls/hr IV ASDIRECTED [facility] Last Admin: 12/02/18 14:44 Dose: 60 mls/hr Sodium Chloride (Normal Saline) 1,000 mls @ 999 mls/hr IV ONETIME ONE Stop: 12/02/18 15:18 Last Admin: 12/02/18 15:00 Dose: 999 mls/hr Levofloxacin/Dextrose 750 mg/ (Premix) 150 mls @ 100 mls/hr IV Q24H [facility] Calcium Gluconate 1 gm/ Sodium (Chloride) 60 mls @ 120 mls/hr IV ONETIME ONE Stop: 12/03/18 15:29 Last Admin: 12/03/18 14:37 Dose: 100 mls/hr Sodium Chloride (Normal Saline) 1,000 mls @ 75 mls/hr IV ASDIRECTED [facility] Last Infusion: 12/04/18 18:14 Dose: 25 mls/hr Insulin Human Lispro (Humalog) 0 unit SUBCUT Q6HR [facility]; Protocol Last Admin: 12/03/18 12:27 Dose: 9 unit Insulin Human Lispro (Humalog) 0 unit SUBCUT QIDACANDBED [facility]; Protocol Last Admin: 12/03/18 17:32 Dose: 9 units Iopamidol (Isovue-370 (76%)) 100 ml IV ONETIME ONE Stop: 12/02/18 07:40 Last Admin: 12/02/18 09:30 Dose: 100 ml Iopamidol (Isovue-370 (76%)) 100 ml IV ONETIME ONE Stop: 12/02/18 14:19 Last Admin: 12/02/18 14:44 Dose: 100 ml Lactulose (Cephulac) 60 gm NGTUBE ONETIME ONE Stop: 11/30/18 19:01 Last Admin: 11/30/18 19:52 Dose: 60 gm Lactulose (Cephulac) 60 gm PO ONETIME ONE Stop: 12/01/18 01:01 Last Admin: 12/01/18 01:00 Dose: 60 gm Lactulose (Cephulac) 45 gm PO Q6H [facility] Last Admin: 12/02/18 09:16 Dose: Not Given Lactulose (Cephulac) 30 gm PO BID [facility] Last Admin: 12/04/18 16:28 Dose: 30 gm Methylprednisolone Sodium Succinate (Solu-Medrol) 125 mg IVPUSH Q8H [facility] Stop: 12/04/18 06:01 Last Admin: 12/04/18 05:40 Dose: 125 mg Midazolam HCl (Versed 1 Mg/Ml) 5 mg IVPUSH ONETIME ONE Stop: 11/30/18 19:30 Last Admin: 11/30/18 19:32 Dose: 5 mg Modafinil (Provigil) 200 mg PO DAILY [facility] Stop: 12/04/18 07:30 Last Admin: 12/03/18 08:00 Dose: 200 mg Modafinil (Provigil) 100 mg PO ONETIME ONE Stop: 12/02/18 20:45 Last Admin: 12/02/18 21:10 Dose: 100 mg Modafinil (Provigil) 200 mg PO NOW [facility] Stop: 12/04/18 13:28 Last Admin: 12/04/18 15:15 Dose: 200 mg Morphine Sulfate (Morphine) 1 mg IVPUSH ONETIME ONE Stop: 12/01/18 11:18 Last Admin: 12/01/18 11:37 Dose: 1 mg Morphine Sulfate (Morphine) 2 mg IVPUSH ONETIME ONE Stop: 12/01/18 16:46 Last Admin: 12/01/18 16:52 Dose: 2 mg Morphine Sulfate (Morphine) 2 mg IVPUSH Q4H PRN PRN Reason: Shortness of Breath Last Admin: 12/04/18 17:06 Dose: 2 mg Morphine Sulfate (Morphine) 1 mg IVPUSH ONETIME ONE Stop: 12/03/18 16:11 Last Admin: 12/03/18 16:24 Dose: 1 mg Racepinephrine (S-2 2.25%) 0.5 ml NEB Q4HRRT PRN PRN Reason: subglottic narrowing Racepinephrine (S-2 2.25%) 0.5 ml NEB ONETIME ONE Stop: 12/04/18 13:41 Last Admin: 12/04/18 13:40 Dose: 0.5 ml Rivaroxaban (Xarelto) 20 mg PO DAILY [facility] Last Admin: 12/05/18 12:37 Dose: Not Given Rivaroxaban (Xarelto) 20 mg PO ONETIME ONE Stop: 12/04/18 21:28 Last Admin: 12/04/18 22:32 Dose: 20 mg Sodium Chloride (Saline Flush) 10 ml FLUSH ONETIME ONE Stop: 12/02/18 07:40 Last Admin: 12/02/18 09:30 Dose: 10 ml Sodium Chloride (Sodium Chloride 0.9%) 3 ml INH ASDIRECTED PRN PRN Reason: mix with racepinephrine neb Succinylcholine Chloride (Quelicin) 180 mg IV ONETIME ONE Stop: 11/30/18 18:46 Last Admin: 11/30/18 18:53 Dose: 180 mg - Exam General: Alert, Oriented, Cooperative, No Acute Distress HEENT: Pupils Equal, Pupils Reactive, Mucous Membr. Moist/[place] I, Scleral Icterus Lungs: Decreased Breath Sounds, Crackles. No: Normal Respiratory Effort Cardiovascular: Regular Rate, Regular Rhythm, Other (PICC line) GI/Abdominal Exam: Normal Bowel Sounds, Soft, Non-Tender, No Organomegaly, No Distention, No Abnormal Bruit. No: Guarding, Rebound (Male) Exam: Other (indwelling catheter) Back Exam: Normal Inspection, Decreased Range of Motion Extremities: Normal Inspection, Normal Range of Motion, Non-Tender, Normal Capillary Refill Peripheral Pulses: 2+: Dorsalis Pedis (L) Skin: Warm, Dry, Intact Neurological: No New Focal Deficit, Normal Gait Psy/Mental Status: Alert, Normal Affect, Normal Mood - Problem List Review Problem List Initiated/Reviewed/Updated: Yes - My Orders Last 24 Hours: My Active Orders 12/04/18 17:53 Acetaminophen/HYDROcodone [[place] 325-5 MG] 1 tab PO Q4H PRN 12/04/18 17:56 Morphine 1 mg IVPUSH Q4H PRN 12/04/18 18:13 CYNTHIA Hose [Antiembolic Hose] [OM.PC] Routine 12/04/18 18:15 Sodium Chloride 0.9% [Normal Saline] 1,000 ml IV ASDIRECTED 12/04/18 21:00 Bumetanide [Bumex] 0.5 mg IVPUSH BID Insulin Glarg,Human.Rec.Analog [LantUS] 10 unit SUBCUT BID Lactulose [Cephulac] 30 gm PO TID 12/05/18 09:00 Modafinil [Provigil] 200 mg PO DAILY 12/06/18 05:11 CMP [COMPREHENSIVE METABOLIC PN,CMP] [CHEM] AM 12/07/18 05:11 CMP [COMPREHENSIVE METABOLIC PN,CMP] [CHEM] AM 12/08/18 05:11 CMP [COMPREHENSIVE METABOLIC PN,CMP] [CHEM] AM 12/09/18 05:11 CMP [COMPREHENSIVE METABOLIC PN,CMP] [CHEM] AM - Plan Plan:: Assessment/Plan: Acute: Hepatic Encephalopathy, Improved - Acute on Chronic - 2/2 Advanced Liver Disease and Medical Non-compliance - Ammonia level is 167--> now 48; However Bilirubin level is trending up-- Now at 4.4 - Unsure if he is taking his home meds; reportedly just returned home from a long trip - Resume Home Meds as ordered - Continue Lactulose and Xifaxan; He is also on oral erythromycin likely for treatment - Monitor Ammonia level - Avoid NSAIDs - Repeat Head CT scan this AM report reads no acute intra-cranial abnormality - MVI, Folic and Thiamine Supplement when able to swallow - Continue IV Dexamethasone 4 mg IV BID; discontinue in AM Cholestasis, Improving - T. Bilirubin 4.4-->3.4 -->2.5 - Has underlying liver failure - Risk factors: DM2 and Medications - Continue IV steroid Permissive Hyperglycemia in Type II DM - BS still in the in the 200s; hopefully will improve soon - He have his first meal since admission - Hold home PO meds until mental status improves -> resume as ordered - Accu-check Q6H with ISS coverage - A1C 6.3 (improved from 7.4 on 08/01/19) Bibasilar Pneumonia w/ Small Pleural Effusion - CTA report reads parenchymal densities within both lung bases; R>>L - Continue IV Zosyn and Levaquin for pharmacy to dose; discontinue after total of 5 day treatment - IS as directed - Repeat Chest CT 12/05/2018 report reads improved right lower lobe parenchymal density with worsening bilateral patchy areas of alveolar density within both lungs. No mass is definitely appreciated on this exam. Small right sided pleural effusion. Hypocalcemia - Ca 7.1--> 6.9-->7.3 - 2/2 GI loss and NPO status - CMP in AM - Replete and monitor Abnormal head CT compare to 11/30/18 -CT obtained in ED 11/13/18 * 1. Mild small vessel ischemic demyelination change. * 2. Questionable diminished density within the cerebellum on both sides, worse on the left side possibly due to additional small vessel ischemic demyelination change but difficult to completely exclude early ischemic infarct. MRI study with diffusion would be helpful to confirm or rule out this possibility. * 3. No acute intracranial hemorrhage or other abnormality is seen. -MRI obtained 11/13/18: * 1. Mild small vessel ischemic demyelination change within the subcortical white matter. * 2. No abnormal signal is seen within the cerebellar hemispheres and prior CT finding most likely represents B Scott artifact. * 3. No acute diffusion abnormalities are seen -CT Abdominal/Pelvis 12/02/2018 * 1. Cirrhotic change within the liver with splenomegaly * 2. Minimal pleural effusion seen around a portion of the liver * 3. Nothing acute is appreciated Resolved: S/p Hypomagnesemia - Magnesium-repace as needed - 2/2 inadequate intake S/P ETT on propofol drip, mild sedation; Nebs scheduled; NGT placed with low intermittent suction. - CXR q AM. HOB>40 degrees. - ABG looks good this AM; will try to extubate him - He is now off propofol drip S/p Subglottic Narrowing S/p Extubation - IV Steroid and Scheduled/PRN Racemic Epinephrine - Repeat CXR shows improved abnormal findings Chronic: Advanced Liver Disease from Long Hx/o ETOH Abuse Hx/o Esophageal Varices S/p TIPS Pancytopenia 2/2 Liver Disease, Platelet and Hgb at baseline Hypoalbuminemia, 2/2 Liver Disease Albumin level at baseline DM2, Accu-check QID with ISS (will increased level to high) Hyperbilirubinemia/Cholestasis, 2/2 Advanced Liver Disease Obesity with BMI of 38 GERD Chronic Back Pain GI bleeds from Intestinal Varices and Hemorrhoids Thrombocytopenia Hepatic encephalopathy Hypothyroidism Eczema Plan: He is much better today NGT discontinued Routine AM labs Dietary consult for weight and protein wasting management GI PPx: H2B PT/OT consult once 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
[2018-12-05] MEDS: LORazepam 2 MG/ML SDV IVPUSH PRN (20:04)
[2018-12-06] MEDS: Morphine 2 MG/ML Syringe IVPUSH PRN ×4 (00:23→21:31)
[2018-12-06] MEDS: Piperacillin/Tazobactam 4.5 GM in Sodium Chloride 0.9% 100 ML IV SCH (01:18)
[2018-12-06] MEDS: LORazepam 2 MG/ML SDV IVPUSH PRN ×3 (01:48→21:31)
[2018-12-06] MEDS: Racepinephrine 2.25% 0.5 ML Neb Soln NEB PRN ×2 (02:14→10:14)
[2018-12-06] MEDS: Aluminum Hydroxide/Magnesium Hydroxide/Simethicone Susp 30 ML Cup PO PRN ×2 (04:58→21:39)
[2018-12-06] MEDS: Insulin Lispro 100 Units/ML 3 ML Vial SUBCUT SCH ×3 (05:06→17:52)
[2018-12-06] MEDS: Albuterol/Ipratropium 3.0-0.5 MG/3 ML Neb Soln NEB SCH ×3 (06:01→20:53)
--- NOTE | 2018-12-06 07:28 | PCM.PN ---
- General Info Date of Service: 12/06/18 Admission Dx/Problem (Free Text): Admission Diagnosis/Problem Admission Diagnosis/Problem Cirrhosis of liver Subjective Update: Follow Up Functional Status: Reports: Pain Controlled, Tolerating Diet, Ambulating, Urinating. Denies: New Symptoms - Review of Systems General: Denies: Fever, Chills HEENT: Reports: No Symptoms Pulmonary: Denies: Shortness of Breath Cardiovascular: Denies: Chest Pain, Dyspnea on Exertion, Lightheadedness Gastrointestinal: Reports: Decreased Appetite, Flatus, Other (rectal bleed). Denies: Abdominal Pain, Nausea, Vomiting Genitourinary: Reports: Other (scrotal edema) Musculoskeletal: Reports: Other (body aches and pain) Skin: Reports: No Symptoms Neurological: Reports: Gait Disturbance. Denies: Confusion, Difficulty Walking , Weakness Psychiatric: Denies: Depression, Anxiety, Agitation, Hallucinations Systems Review Comment:: Had 2 bloody bowel movements last night and one early this AM. He is lethargic during morning rounds. His most recent Ammonia level is within normal limit. 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 He is slow in response this AM. His Hgb level is stable at 9.5. - Patient Data Vitals - Most Recent: Last Vital Signs Temp 36.4 C 12/06/18 03:41 Pulse 90 12/06/18 03:41 Resp 20 12/06/18 05:09 BP 146/85 H 12/06/18 03:41 Pulse Ox 100 12/06/18 06:01 Weight - Most Recent: 135.261 kg I&O - Last 24 Hours: Intake & Output 12/05/18 12/06/18 12/06/18 22:59 06:59 14:59 Intake Total 1020 594 Output Total 950 600 Balance 70 -6 Lab Results Last 24 Hours: Laboratory Results - last 24 hr 12/05/18 12/05/18 12/05/18 Range/Units 07:45 07:45 07:45 WBC 5.22 (4.23-9.07) K/mm3 RBC 2.81 L (4.63-6.08) M/mm3 Hgb 9.3 L (13.7-17.5) gm/L Hct 28.2 L (40.1-51.0) % MCV 100.4 H (79.0-92.2) fl MCH 33.1 H (25.7-32.2) pg MCHC 33.0 (32.2-35.5) g/dl RDW Std Deviation 55.6 H (35.1-43.9) fL Plt Count 39 L (163-337) K/mm3 MPV 9.8 (9.4-12.3) fl Neut % (Auto) 90.0 H (34.0-67.9) % Lymph % (Auto) 5.2 L (21.8-53.1) % Waller % (Auto) 4.2 L (5.3-12.2) % Eos % (Auto) 0 L (0.8-7.0) Baso % (Auto) 0.0 L (0.1-1.2) % Neut # (Auto) 4.70 (1.78-5.38) K/mm3 Lymph # (Auto) 0.27 L (1.32-3.57) K/mm3 Waller # (Auto) 0.22 L (0.30-0.82) K/mm3 Eos # (Auto) 0.00 L (0.04-0.54) K/mm3 Baso # (Auto) 0.00 L (0.01-0.08) K/mm3 Manual Slide Review Abnormal smear PT (9.5-12.1) SECONDS INR Sodium (136-145) mEq/L Potassium (3.5-5.1) mEq/L Chloride (98-107) mEq/L Carbon Dioxide (21-32) mEq/L Anion Gap (5-15) BUN (7-18) mg/dL Creatinine (0.7-1.3) mg/dL Est Cr Clr Drug Dosing mL/min Estimated GFR (MDRD) (>60) mL/min BUN/Creatinine Ratio (14-18) Glucose (74-106) mg/dL POC Glucose (70-105) mg/dL Calcium (8.5-10.1) mg/dL Magnesium 2.3 (1.8-2.4) mg/dl Total Bilirubin (0.2-1.0) mg/dL AST (15-37) U/L ALT (16-63) U/L Alkaline Phosphatase (46-116) U/L Ammonia 13 (11-32) umol/L C-Reactive Protein (<1.0) mg/dL Total Protein (6.4-8.2) g/dl Albumin (3.4-5.0) g/dl Globulin gm/dL Albumin/Globulin Ratio (1-2) 12/05/18 12/05/18 12/05/18 Range/Units 07:45 07:45 12:23 WBC (4.23-9.07) K/mm3 RBC (4.63-6.08) M/mm3 Hgb (13.7-17.5) gm/L Hct (40.1-51.0) % MCV (79.0-92.2) fl MCH (25.7-32.2) pg MCHC (32.2-35.5) g/dl RDW Std Deviation (35.1-43.9) fL Plt Count (163-337) K/mm3 MPV (9.4-12.3) fl Neut % (Auto) (34.0-67.9) % Lymph % (Auto) (21.8-53.1) % Waller % (Auto) (5.3-12.2) % Eos % (Auto) (0.8-7.0) Baso % (Auto) (0.1-1.2) % Neut # (Auto) (1.78-5.38) K/mm3 Lymph # (Auto) (1.32-3.57) K/mm3 Waller # (Auto) (0.30-0.82) K/mm3 Eos # (Auto) (0.04-0.54) K/mm3 Baso # (Auto) (0.01-0.08) K/mm3 Manual Slide Review PT 22.1 H (9.5-12.1) SECONDS INR 2.06 Sodium (136-145) mEq/L Potassium (3.5-5.1) mEq/L Chloride (98-107) mEq/L Carbon Dioxide (21-32) mEq/L Anion Gap (5-15) BUN (7-18) mg/dL Creatinine (0.7-1.3) mg/dL Est Cr Clr Drug Dosing mL/min Estimated GFR (MDRD) (>60) mL/min BUN/Creatinine Ratio (14-18) Glucose (74-106) mg/dL POC Glucose 231 H (70-105) mg/dL Calcium (8.5-10.1) mg/dL Magnesium (1.8-2.4) mg/dl Total Bilirubin (0.2-1.0) mg/dL AST (15-37) U/L ALT (16-63) U/L Alkaline Phosphatase (46-116) U/L Ammonia (11-32) umol/L C-Reactive Protein 5.9 H* (<1.0) mg/dL Total Protein (6.4-8.2) g/dl Albumin (3.4-5.0) g/dl Globulin gm/dL Albumin/Globulin Ratio (1-2) 12/05/18 12/05/18 12/06/18 Range/Units 17:25 23:20 05:04 WBC (4.23-9.07) K/mm3 RBC (4.63-6.08) M/mm3 Hgb (13.7-17.5) gm/L Hct (40.1-51.0) % MCV (79.0-92.2) fl MCH (25.7-32.2) pg MCHC (32.2-35.5) g/dl RDW Std Deviation (35.1-43.9) fL Plt Count (163-337) K/mm3 MPV (9.4-12.3) fl Neut % (Auto) (34.0-67.9) % Lymph % (Auto) (21.8-53.1) % Waller % (Auto) (5.3-12.2) % Eos % (Auto) (0.8-7.0) Baso % (Auto) (0.1-1.2) % Neut # (Auto) (1.78-5.38) K/mm3 Lymph # (Auto) (1.32-3.57) K/mm3 Waller # (Auto) (0.30-0.82) K/mm3 Eos # (Auto) (0.04-0.54) K/mm3 Baso # (Auto) (0.01-0.08) K/mm3 Manual Slide Review PT (9.5-12.1) SECONDS INR Sodium (136-145) mEq/L Potassium (3.5-5.1) mEq/L Chloride (98-107) mEq/L Carbon Dioxide (21-32) mEq/L Anion Gap (5-15) BUN (7-18) mg/dL Creatinine (0.7-1.3) mg/dL Est Cr Clr Drug Dosing mL/min Estimated GFR (MDRD) (>60) mL/min BUN/Creatinine Ratio (14-18) Glucose (74-106) mg/dL POC Glucose 242 H 238 H 233 H (70-105) mg/dL Calcium (8.5-10.1) mg/dL Magnesium (1.8-2.4) mg/dl Total Bilirubin (0.2-1.0) mg/dL AST (15-37) U/L ALT (16-63) U/L Alkaline Phosphatase (46-116) U/L Ammonia (11-32) umol/L C-Reactive Protein (<1.0) mg/dL Total Protein (6.4-8.2) g/dl Albumin (3.4-5.0) g/dl Globulin gm/dL Albumin/Globulin Ratio (1-2) 12/06/18 12/06/18 Range/Units 05:29 05:29 WBC 6.06 (4.23-9.07) K/mm3 RBC 2.83 L (4.63-6.08) M/mm3 Hgb 9.5 L (13.7-17.5) gm/L Hct 28.4 L (40.1-51.0) % MCV 100.4 H (79.0-92.2) fl MCH 33.6 H (25.7-32.2) pg MCHC 33.5 (32.2-35.5) g/dl RDW Std Deviation 57.3 H (35.1-43.9) fL Plt Count 42 L (163-337) K/mm3 MPV 10.2 (9.4-12.3) fl Neut % (Auto) 86.9 H (34.0-67.9) % Lymph % (Auto) 6.3 L (21.8-53.1) % Waller % (Auto) 6.3 (5.3-12.2) % Eos % (Auto) 0 L (0.8-7.0) Baso % (Auto) 0.0 L (0.1-1.2) % Neut # (Auto) 5.27 (1.78-5.38) K/mm3 Lymph # (Auto) 0.38 L (1.32-3.57) K/mm3 Waller # (Auto) 0.38 (0.30-0.82) K/mm3 Eos # (Auto) 0.00 L (0.04-0.54) K/mm3 Baso # (Auto) 0.00 L (0.01-0.08) K/mm3 Manual Slide Review Abnormal smear PT (9.5-12.1) SECONDS INR Sodium 149 H (136-145) mEq/L Potassium 3.6 (3.5-5.1) mEq/L Chloride 118 H (98-107) mEq/L Carbon Dioxide 20 L (21-32) mEq/L Anion Gap 14.6 (5-15) BUN 47 H (7-18) mg/dL Creatinine 1.4 H (0.7-1.3) mg/dL Est Cr Clr Drug Dosing 58.66 mL/min Estimated GFR (MDRD) 52 (>60) mL/min BUN/Creatinine Ratio 33.6 H (14-18) Glucose 215 H (74-106) mg/dL POC Glucose (70-105) mg/dL Calcium 7.1 L (8.5-10.1) mg/dL Magnesium 1.9 (1.8-2.4) mg/dl Total Bilirubin 1.9 H (0.2-1.0) mg/dL AST 47 H (15-37) U/L ALT 38 (16-63) U/L Alkaline Phosphatase 66 (46-116) U/L Ammonia (11-32) umol/L C-Reactive Protein (<1.0) mg/dL Total Protein 5.7 L (6.4-8.2) g/dl Albumin 1.6 L (3.4-5.0) g/dl Globulin 4.1 gm/dL Albumin/Globulin Ratio 0.4 L (1-2) Med Orders - Current: Current Medications Hydrocodone Bitart/Acetaminophen ([place] 325-5 Mg) 1 tab PO Q4H PRN PRN Reason: Pain (moderate 4-6) Last Admin: 12/05/18 18:16 Dose: 1 tab Al Hydroxide/Mg Hydroxide (Mag-Al Plus) 30 ml PO Q4H PRN PRN Reason: Heartburn Last Admin: 12/06/18 04:58 Dose: 30 ml Albuterol/Ipratropium (Duoneb 3.0-0.5 Mg/3 Ml) 3 ml NEB Q8HRRT [facility] Last Admin: 12/06/18 06:01 Dose: 3 ml Bumetanide (Bumex) 0.5 mg IVPUSH BID [facility] Last Admin: 12/05/18 20:03 Dose: 0.5 mg Famotidine (Pepcid) 20 mg IVPUSH BID [facility] Last Admin: 12/05/18 20:04 Dose: 20 mg Piperacillin Sod/Tazobactam (Sod 4.5 gm/ Sodium Chloride) 100 mls @ 25 mls/hr IV Q8H [facility] Last Admin: 12/06/18 01:18 Dose: 25 mls/hr Levofloxacin/Dextrose 750 mg/ (Premix) 150 mls @ 100 mls/hr IV Q24H [facility] Last Admin: 12/05/18 15:11 Dose: 100 mls/hr Sodium Chloride (Normal Saline) 1,000 mls @ 25 mls/hr IV ASDIRECTED [facility] Last Admin: 12/04/18 18:15 Dose: 25 mls/hr Insulin Glargine (Lantus) 10 unit SUBCUT BID [facility] Last Admin: 12/05/18 20:00 Dose: 10 units Insulin Human Lispro (Humalog) 0 unit SUBCUT Q6HR [facility]; Protocol Last Admin: 12/06/18 05:06 Dose: 6 units Lactulose (Cephulac) 20 gm PO BID [facility] Last Admin: 12/05/18 20:06 Dose: 20 gm Lorazepam (Ativan) 1 mg IVPUSH Q6H PRN PRN Reason: restlessness Last Admin: 12/06/18 01:48 Dose: 1 mg Modafinil (Provigil) 200 mg PO DAILY [facility] Last Admin: 12/05/18 09:10 Dose: 200 mg Morphine Sulfate (Morphine) 1 mg IVPUSH Q4H PRN PRN Reason: Shortness of Breath Last Admin: 12/06/18 04:21 Dose: 1 mg Racepinephrine (S-2 2.25%) 0.5 ml NEB TID [facility] Stop: 12/06/18 09:00 Last Admin: 12/05/18 20:23 Dose: 0.5 ml Racepinephrine (S-2 2.25%) 0.5 ml NEB Q4HRRT PRN PRN Reason: choking Last Admin: 12/06/18 02:14 Dose: 0.5 ml Rifaximin (Xifaxan) 550 mg PO BID [facility] Last Admin: 12/05/18 20:06 Dose: 550 mg Saccharomyces Boulardii (Florastor) 250 mg PO BID [facility] Last Admin: 12/05/18 20:06 Dose: 250 mg Sodium Chloride (Saline Flush) 10 ml FLUSH ASDIRECTED PRN PRN Reason: Keep Vein Open Last Admin: 11/30/18 16:56 Dose: 10 ml Sodium Chloride (Sodium Chloride 0.9%) 3 ml INH ASDIRECTED PRN PRN Reason: mix with racepinephrine neb Sodium Chloride (Sodium Chloride 0.9%) 0 ml INH TID [facility] Stop: 12/06/18 09:00 Last Admin: 12/05/18 20:23 Dose: 3 ml Spironolactone (Aldactone) 12.5 mg PO BID [facility] Last Admin: 12/05/18 20:01 Dose: 12.5 mg Discontinued Medications Bumetanide (Bumex) 1 mg IVPUSH ONETIME ONE Stop: 12/03/18 16:12 Last Admin: 12/03/18 16:25 Dose: 1 mg Bumetanide (Bumex) 1 mg IVPUSH ONETIME ONE Stop: 12/03/18 21:01 Last Admin: 12/03/18 21:16 Dose: 1 mg Bumetanide (Bumex) 1 mg IVPUSH ONETIME ONE Stop: 12/04/18 13:25 Last Admin: 12/04/18 14:36 Dose: 1 mg Calcium Carbonate/Glycine (Calcium Carbonate) 1,200 mg PO ONETIME ONE Stop: 12/02/18 22:23 Last Admin: 12/02/18 22:42 Dose: 1,200 mg Calcium Carbonate/Glycine (Tums) 1,000 mg PO ONETIME ONE Stop: 12/04/18 21:33 Last Admin: 12/04/18 22:32 Dose: 1,000 mg Calcium Gluconate (Calcium Gluconate) 1 gm IVPUSH ONETIME ONE Stop: 12/03/18 14:10 Last Admin: 12/03/18 14:47 Dose: Not Given Dexamethasone (Dexamethasone) 4 mg IVPUSH Q12H [facility] Last Admin: 12/03/18 05:48 Dose: 4 mg Dexamethasone (Dexamethasone) 4 mg IVPUSH Q12H [facility] Stop: 12/05/18 09:30 Last Admin: 12/05/18 09:04 Dose: 4 mg Erythromycin (Jed-Tab) 250 mg PO Q8HR [facility] Last Admin: 12/03/18 05:41 Dose: 250 mg Etomidate (Amidate) 30 mg IVPUSH ONETIME ONE Stop: 11/30/18 18:39 Last Admin: 11/30/18 18:52 Dose: 30 mg Famotidine (Pepcid) 20 mg IVPUSH ONETIME ONE Stop: 11/30/18 21:57 Last Admin: 11/30/18 22:26 Dose: 20 mg Furosemide (Lasix) 20 mg IVPUSH NOW ONE Stop: 12/01/18 23:01 Last Admin: 12/01/18 23:16 Dose: 20 mg Furosemide (Lasix) 40 mg PO DAILY [facility] Last Admin: 12/05/18 09:11 Dose: 40 mg Sodium Chloride (Normal Saline) 1,000 mls @ 125 mls/hr IV ASDIRECTED [facility] Last Admin: 11/30/18 16:55 Dose: 125 mls/hr Propofol (Diprivan 100 Ml) 100 mls @ 7.348 mls/hr IV TITRATE [facility]; Protocol Last Titration: 12/01/18 11:09 Dose: 0 mcg/kg/min, 0 mls/hr Propofol (Diprivan 100 Ml) Confirm Administered Dose 100 mls @ as directed .ROUTE .STK-MED ONE Stop: 11/30/18 19:02 Last Admin: 11/30/18 19:15 Dose: Not Given Dextrose/Sodium Chloride (Dextrose 5%-Normal Saline) 1,000 mls @ 100 mls/hr IV ASDIRECTED [facility] Last Admin: 12/01/18 09:20 Dose: 100 mls/hr Magnesium Sulfate 4 gm/ Premix 50 mls @ 12.5 mls/hr IV ONETIME ONE Stop: 12/01/18 13:28 Last Admin: 12/01/18 09:50 Dose: 12.5 mls/hr Magnesium Sulfate 4 gm/ Premix 50 mls @ 12.5 mls/hr IV ONETIME ONE Stop: 12/01/18 23:59 Last Admin: 12/01/18 19:58 Dose: 12.5 mls/hr Potassium Chloride/Sodium Chloride (Normal Saline With 20 Meq Kcl) 1,000 mls @ 100 mls/hr IV ASDIRECTED [facility] Last Admin: 12/02/18 01:03 Dose: 100 mls/hr Potassium Chloride/Sodium Chloride (Normal Saline With 20 Meq Kcl) 500 mls @ 500 mls/hr IV ASDIRECTED [facility] Stop: 12/01/18 19:29 Last Admin: 12/01/18 18:47 Dose: 500 mls/hr Piperacillin Sod/Tazobactam (Sod 4.5 gm/ Sodium Chloride) 100 mls @ 200 mls/hr IV ONETIME ONE Stop: 12/01/18 19:14 Last Admin: 12/01/18 19:14 Dose: 200 mls/hr Dextrose/Sodium Chloride (Dextrose 5%-Normal Saline) 1,000 mls @ 100 mls/hr IV ASDIRECTED [facility] Last Admin: 12/02/18 05:46 Dose: 100 mls/hr Levofloxacin/Dextrose 750 mg/ (Premix) 150 mls @ 100 mls/hr IV ONETIME ONE Stop: 12/02/18 07:29 Last Admin: 12/02/18 08:46 Dose: Not Given Sodium Chloride (Normal Saline) 500 mls @ 999 mls/hr IV .BOLUS ONE Stop: 12/02/18 05:56 Last Admin: 12/02/18 05:45 Dose: 999 mls/hr Sodium Chloride (Normal Saline) Confirm Administered Dose 500 mls @ as directed .ROUTE .STK-MED ONE Stop: 12/02/18 05:45 Last Admin: 12/02/18 05:50 Dose: Not Given Norepinephrine Bitartrate 4 mg (/ Dextrose/Water) 250 mls @ 7.5 mls/hr IV TITRATE [facility]; Protocol Last Titration: 12/02/18 11:17 Dose: 0 mcg/min, 0 mls/hr Levofloxacin/Dextrose 750 mg/ (Premix) 150 mls @ 100 mls/hr IV ONETIME ONE Stop: 12/02/18 13:29 Last Admin: 12/02/18 12:15 Dose: 100 mls/hr Sodium Chloride (Normal Saline) 2,000 mls @ 999 mls/hr IV ONETIME ONE Stop: 12/02/18 10:42 Last Admin: 12/02/18 09:11 Dose: 999 mls/hr Potassium Chloride/Sodium Chloride (Normal Saline With 20 Meq Kcl) 1,000 mls @ 150 mls/hr IV ASDIRECTED [facility] Last Admin: 12/03/18 08:14 Dose: 150 mls/hr Dextrose/Sodium Chloride (Dextrose 5%-Normal Saline) 1,000 mls @ 150 mls/hr IV ASDIRECTED [facility] Last Admin: 12/02/18 22:32 Dose: 150 mls/hr Sodium Chloride (Normal Saline) 100 mls @ 60 mls/hr IV ASDIRECTED [facility] Last Admin: 12/02/18 14:44 Dose: 60 mls/hr Sodium Chloride (Normal Saline) 1,000 mls @ 999 mls/hr IV ONETIME ONE Stop: 12/02/18 15:18 Last Admin: 12/02/18 15:00 Dose: 999 mls/hr Levofloxacin/Dextrose 750 mg/ (Premix) 150 mls @ 100 mls/hr IV Q24H [facility] Calcium Gluconate 1 gm/ Sodium (Chloride) 60 mls @ 120 mls/hr IV ONETIME ONE Stop: 12/03/18 15:29 Last Admin: 12/03/18 14:37 Dose: 100 mls/hr Sodium Chloride (Normal Saline) 1,000 mls @ 75 mls/hr IV ASDIRECTED [facility] Last Infusion: 12/04/18 18:14 Dose: 25 mls/hr Insulin Human Lispro (Humalog) 0 unit SUBCUT Q6HR [facility]; Protocol Last Admin: 12/03/18 12:27 Dose: 9 unit Insulin Human Lispro (Humalog) 0 unit SUBCUT QIDACANDBED [facility]; Protocol Last Admin: 12/03/18 17:32 Dose: 9 units Iopamidol (Isovue-370 (76%)) 100 ml IV ONETIME ONE Stop: 12/02/18 07:40 Last Admin: 12/02/18 09:30 Dose: 100 ml Iopamidol (Isovue-370 (76%)) 100 ml IV ONETIME ONE Stop: 12/02/18 14:19 Last Admin: 12/02/18 14:44 Dose: 100 ml Lactulose (Cephulac) 60 gm NGTUBE ONETIME ONE Stop: 11/30/18 19:01 Last Admin: 11/30/18 19:52 Dose: 60 gm Lactulose (Cephulac) 60 gm PO ONETIME ONE Stop: 12/01/18 01:01 Last Admin: 12/01/18 01:00 Dose: 60 gm Lactulose (Cephulac) 45 gm PO Q6H [facility] Last Admin: 12/02/18 09:16 Dose: Not Given Lactulose (Cephulac) 30 gm PO BID [facility] Last Admin: 12/04/18 16:28 Dose: 30 gm Lactulose (Cephulac) 30 gm PO TID [facility] Last Admin: 12/05/18 15:14 Dose: 30 gm Methylprednisolone Sodium Succinate (Solu-Medrol) 125 mg IVPUSH Q8H [facility] Stop: 12/04/18 06:01 Last Admin: 12/04/18 05:40 Dose: 125 mg Midazolam HCl (Versed 1 Mg/Ml) 5 mg IVPUSH ONETIME ONE Stop: 11/30/18 19:30 Last Admin: 11/30/18 19:32 Dose: 5 mg Modafinil (Provigil) 200 mg PO DAILY [facility] Stop: 12/04/18 07:30 Last Admin: 12/03/18 08:00 Dose: 200 mg Modafinil (Provigil) 100 mg PO ONETIME ONE Stop: 12/02/18 20:45 Last Admin: 12/02/18 21:10 Dose: 100 mg Modafinil (Provigil) 200 mg PO NOW STA Stop: 12/04/18 13:28 Last Admin: 12/04/18 15:15 Dose: 200 mg Morphine Sulfate (Morphine) 1 mg IVPUSH ONETIME ONE Stop: 12/01/18 11:18 Last Admin: 12/01/18 11:37 Dose: 1 mg Morphine Sulfate (Morphine) 2 mg IVPUSH ONETIME ONE Stop: 12/01/18 16:46 Last Admin: 12/01/18 16:52 Dose: 2 mg Morphine Sulfate (Morphine) 2 mg IVPUSH Q4H PRN PRN Reason: Shortness of Breath Last Admin: 12/04/18 17:06 Dose: 2 mg Morphine Sulfate (Morphine) 1 mg IVPUSH ONETIME ONE Stop: 04/24/19 16:11 Last Admin: 12/03/18 16:24 Dose: 1 mg Racepinephrine (S-2 2.25%) 0.5 ml NEB Q4HRRT PRN PRN Reason: subglottic narrowing Racepinephrine (S-2 2.25%) 0.5 ml NEB ONETIME ONE Stop: 12/04/18 13:41 Last Admin: 12/04/18 13:40 Dose: 0.5 ml Rivaroxaban (Xarelto) 20 mg PO DAILY [facility] Last Admin: 12/05/18 12:37 Dose: Not Given Rivaroxaban (Xarelto) 20 mg PO ONETIME ONE Stop: 12/04/18 21:28 Last Admin: 12/04/18 22:32 Dose: 20 mg Sodium Chloride (Saline Flush) 10 ml FLUSH ONETIME ONE Stop: 12/02/18 07:40 Last Admin: 12/02/18 09:30 Dose: 10 ml Sodium Chloride (Sodium Chloride 0.9%) 3 ml INH ASDIRECTED PRN PRN Reason: mix with racepinephrine neb Succinylcholine Chloride (Quelicin) 180 mg IV ONETIME ONE Stop: 11/30/18 18:46 Last Admin: 11/30/18 18:53 Dose: 180 mg - Exam General: Sedated, Lethargic HEENT: Pupils Equal, Pupils Reactive, Mucous Membr. Moist/Carlos, Other Neck: Supple Lungs: Normal Respiratory Effort, Decreased Breath Sounds Cardiovascular: Regular Rate, Regular Rhythm GI/Abdominal Exam: Normal Bowel Sounds, Soft, No Abnormal Bruit, No Mass, Distended, Hepatomegaly (Male) Exam: Other (indwelling perez catheter with scrotal edema) Back Exam: Normal Inspection, Decreased Range of Motion Extremities: Normal Inspection, Normal Range of Motion, Non-Tender, Normal Capillary Refill, Pedal Edema Peripheral Pulses: 1+: Dorsalis Pedis (L), Dorsalis Pedis (R) Skin: Warm, Dry, Intact Neurological: Other (deferred: not appropriate) Psy/Mental Status: Other (lethargic). No: Normal Affect - Problem List Review Problem List Initiated/Reviewed/Updated: Yes - My Orders Last 24 Hours: My Active Orders 12/05/18 09:00 Modafinil [Provigil] 200 mg PO DAILY 12/05/18 21:00 Lactulose [Cephulac] 20 gm PO BID 12/05/18 Dinner Soft Diet [DIET] 12/06/18 04:48 Alum Hydrox/Mag Hydrox/Simeth [Mag-Al Plus] 30 ml PO Q4H PRN 12/07/18 05:11 CBC WITH AUTO DIFF [HEME] AM CMP [COMPREHENSIVE METABOLIC PN,CMP] [CHEM] AM MG [MAGNESIUM] [CHEM] AM 12/08/18 05:11 CBC WITH AUTO DIFF [HEME] AM CMP [COMPREHENSIVE METABOLIC PN,CMP] [CHEM] AM MG [MAGNESIUM] [CHEM] AM 12/09/18 05:11 CBC WITH AUTO DIFF [HEME] AM CMP [COMPREHENSIVE METABOLIC PN,CMP] [CHEM] AM MG [MAGNESIUM] [CHEM] AM - Plan Plan:: Assessment/Plan: Acute: Hepatic Encephalopathy - Acute on Chronic - 2/2 Advanced Liver Disease and Medical Non-compliance - Ammonia level is 167--> now 13; Bilirubin level trended up but now 1.9 - Unsure if he is taking his home meds; reportedly just returned home from a long trip - Resume Home Meds as ordered - Continue Lactulose and Xifaxan; discontinued steroid - Monitor Ammonia level-13 lest level - Avoid NSAIDs - Repeat Head CT scan this AM report reads no acute intra-cranial abnormality - MVI, Folic and Thiamine Supplement when able to swallow Cholestasis, Continues to Improve - T. Bilirubin 4.4-->3.4 -->2.5-->1.9 - Has underlying liver failure - Risk factors: DM2 and Medications - Continue IV steroid Permissive Hyperglycemia in Type II DM - BS still in the in the 200s; Improved - He have his first meal since admission - Hold home PO meds until mental status improves -> resume as ordered - Accu-check Q6H with ISS coverage - Add Lantus 10 units subQ BID; Steroids has been d/c'd - A1C 6.3 (improved from 7.4 on 08/01/19) Bibasilar Pneumonia w/ Small Pleural Effusion - CTA report reads parenchymal densities within both lung bases; R>>L - Continue IV Zosyn and Levaquin for pharmacy to dose; discontinue after total of 5 day treatment - IS as directed - Repeat Chest CT 12/05/2018 report reads improved right lower lobe parenchymal density with worsening bilateral patchy areas of alveolar density within both lungs. No mass is definitely appreciated on this exam. Small right sided pleural effusion. -Last dose antibiotic today Hypocalcemia - Ca 7.1--> 6.9-->7.3-->7.1 - 2/2 GI loss and NPO status - Replete and monitor Generalized Edema with > 10 lbs Weight Gain - 122lbs on admission; 135lbs today - 2/2 Volume overload - Continue Bumex 0.5 mg IVP BID; will add low dose HCTZ BID - Consider Albumin infusion due to low albumin state from liver cirrhosis Rectal Bleed - Carries a hx/o Intestinal Varices - Hgb Stable; will continue to monitor - He is not on blood thinner Colonic Ileus - CT scan report reads: Gaseous dilatation throughout the colon compatible with colonic ileus - He is has been mostly bedbound, also receiving PRN ativan and morphine - Abdomen more distended than usual - Prokinetic agent, continue lactulose, Xifaxan and may consider additional prokinetic agent if needed Abnormal head CT compare to 11/30/18 -CT obtained in ED 11/13/18 * 1. Mild small vessel ischemic demyelination change. * 2. Questionable diminished density within the cerebellum on both sides, worse on the left side possibly due to additional small vessel ischemic demyelination change but difficult to completely exclude early ischemic infarct. MRI study with diffusion would be helpful to confirm or rule out this possibility. * 3. No acute intracranial hemorrhage or other abnormality is seen. -MRI obtained 11/13/18: * 1. Mild small vessel ischemic demyelination change within the subcortical white matter. * 2. No abnormal signal is seen within the cerebellar hemispheres and prior CT finding most likely represents B Scott artifact. * 3. No acute diffusion abnormalities are seen -CT Abdominal/Pelvis 12/02/2018 * 1. Cirrhotic change within the liver with splenomegaly * 2. Minimal pleural effusion seen around a portion of the liver * 3. Nothing acute is appreciated Resolved: S/p Hypomagnesemia - Magnesium-repace as needed - 2/2 inadequate intake S/P ETT on propofol drip, mild sedation; Nebs scheduled; NGT placed with low intermittent suction. - CXR q AM. HOB>40 degrees. - ABG looks good this AM; will try to extubate him - He is now off propofol drip S/p Subglottic Narrowing S/p Extubation - IV Steroid and Scheduled/PRN Racemic Epinephrine - Repeat CXR shows improved abnormal findings Chronic: Advanced Liver Disease from Long Hx/o ETOH Abuse Hx/o Esophageal Varices S/p TIPS Pancytopenia 2/2 Liver Disease, Platelet and Hgb at baseline Hypoalbuminemia, 2/2 Liver Disease Albumin level at baseline DM2, Accu-check QID with ISS (will increased level to high) Hyperbilirubinemia/Cholestasis, 2/2 Advanced Liver Disease Obesity with BMI of 38 GERD Chronic Back Pain GI bleeds from Intestinal Varices and Hemorrhoids Thrombocytopenia Hepatic encephalopathy Hypothyroidism Eczema Plan: He He is eating and drinking Discontinue IVF due to significant edema and weight gain Discontinue Racemic Epi Last dose of oral antibiotic GI PPx: H2B No blood thinners due to rectal bowel movements PT/OT consult once appropriate carry in worker/CM for discharge planning Code status: Full code; PCP: [facility] - Patient Instructions Diet: Diabetic Diet Activity: As Tolerated Notify Provider of: Fever, Increased Pain, Nausea and/or Vomiting - Discharge Plan *PRESCRIPTION DRUG MONITORING PROGRAM REVIEWED*: No *COPY OF PRESCRIPTION DRUG MONITORING REPORT IN PATIENT RAVI: No
[2018-12-06] MEDS: Insulin Glarg,Human.Rec.Analog 100 UNIT/ML ML SUBCUT SCH ×2 (08:34→20:21)
[2018-12-06] MEDS: Bumetanide 1 MG/4 ML MDV IVPUSH SCH ×2 (08:35→20:21)
[2018-12-06] MEDS: Modafinil 200 MG Tab PO SCH (08:37)
[2018-12-06] MEDS: Lactulose Soln 10 GM/15 ML 30 ML UD Cup PO SCH ×3 (08:37→20:21)
[2018-12-06] MEDS: Spironolactone 25 MG Tab PO SCH ×2 (08:37→20:20)
[2018-12-06] MEDS: glipiZIDE 2.5 MG Tab.ER PO SCH ×2 (08:37→20:20)
[2018-12-06] MEDS: Saccharomyces Boulardii (Probiotic) 250 MG Cap PO SCH ×2 (08:37→20:20)
[2018-12-06] MEDS: Magnesium Oxide 400 MG Tab PO SCH ×2 (08:37→20:20)
[2018-12-06] MEDS: Famotidine 20 MG/2 ML SDV IVPUSH SCH ×2 (08:37→20:21)
[2018-12-06] MEDS: Rifaximin 550 MG Tab PO SCH ×2 (08:37→20:20)
--- NOTE | 2018-12-06 09:03 | CT ---
Addendum: Voice recognition error is noted within original report. Original report states "liver should is small in size", following is the corrected sentence. Liver is small in size compatible with cirrhosis --- Addendum1 above dictated on [12/09/2018 15:07] by [Marisa Mendez Hilton J.] --- --- Addendum1 above signed on [12/09/2018 15:09] by [Marisa Mendez Hilton J.] --- --- Original report below dictated on [12/06/2018 08:51] by [Marisa Mendez Hilton J.] --- --- Original report below signed on [12/06/2018 08:59] by [Marisa Mendez Hilton J.] --- CT abdomen and pelvis Technique: Multiple axial sections were obtained from above the dome of the diaphragm inferiorly through the pubic symphysis. Intravenous and oral contrast not utilized which diminishes details of the exam. Comparison: Prior CT abdomen and pelvis exam of 12/02/18. Findings: Gaseous dilatation is seen throughout the colon. Findings most likely represent colonic ileus. Patchy areas of increased density are noted within both lungs which has been seen on recent CT chest of 12/05/18. TIPS stent is present. Liver should is small in size compatible with cirrhosis. Spleen is enlarged with length of 20.2 cm. Metallic artifact presumably from surgical clip is seen in the region of the left adrenal gland. Adrenal glands show no nodule. Kidneys show no hydronephrosis or abnormal calcifications. Visualized portions of the pancreas show no discrete abnormality. Aorta shows no aneurysm. No retroperitoneal adenopathy or mesenteric abnormalities are seen. Carey catheter is present within the bladder. Prostate calcifications are seen. Fluid is noted within the left inguinal region compatible with non-bowel containing inguinal hernia. Bone window settings were reviewed which shows scattered degenerative change within the spine, most prominent within the lower lumbar spine. Minimal ascites is identified around the liver. No other free fluid seen within the abdomen or pelvis. Impression: 1. Cirrhotic change within the liver with TIPS stent in place. Splenomegaly is noted. Small amount of ascites around the liver is seen. 2. Gaseous dilatation throughout the colon compatible with colonic ileus. 3. Other incidental findings as noted above. Diagnostic code #3 --- Addendum1 signed ---
[2018-12-06] MEDS: Sodium Chloride 0.9% Inhalation Soln 3 ML Neb INH SCH (10:15)
[2018-12-06] MEDS: Metoclopramide 10 MG/2 ML SDV IVPUSH SCH ×2 (11:10→17:02)
[2018-12-06] MEDS: Levofloxacin 750 MG Tab PO SCH (11:42)
[2018-12-06] MEDS: Acetaminophen/HYDROcodone 325-5 MG Tab PO PRN (20:20)
[2018-12-07] MEDS: Metoclopramide 10 MG/2 ML SDV IVPUSH SCH ×4 (05:20→22:36)
[2018-12-07] MEDS: Insulin Lispro 100 Units/ML 3 ML Vial SUBCUT SCH ×5 (05:28→23:10)
[2018-12-07] MEDS: Lactulose Soln 10 GM/15 ML 30 ML UD Cup PO SCH ×3 (06:11→20:56)
[2018-12-07] MEDS: Albuterol/Ipratropium 3.0-0.5 MG/3 ML Neb Soln NEB SCH ×3 (06:31→20:31)
[2018-12-07] MEDS: Modafinil 200 MG Tab PO SCH (08:47)
[2018-12-07] MEDS: Saccharomyces Boulardii (Probiotic) 250 MG Cap PO SCH ×2 (08:48→20:51)
[2018-12-07] MEDS: glipiZIDE 2.5 MG Tab.ER PO SCH ×2 (08:48→20:51)
[2018-12-07] MEDS: Magnesium Oxide 400 MG Tab PO SCH ×2 (08:48→20:50)
[2018-12-07] MEDS: Insulin Glarg,Human.Rec.Analog 100 UNIT/ML ML SUBCUT SCH ×2 (08:49→20:50)
[2018-12-07] MEDS: Spironolactone 25 MG Tab PO SCH ×2 (08:49→20:51)
[2018-12-07] MEDS: Bumetanide 1 MG/4 ML MDV IVPUSH SCH ×2 (08:50→20:56)
[2018-12-07] MEDS: Famotidine 20 MG/2 ML SDV IVPUSH SCH ×2 (08:52→20:56)
[2018-12-07] MEDS: Acetaminophen/HYDROcodone 325-5 MG Tab PO PRN (08:55)
[2018-12-07] MEDS: Rifaximin 550 MG Tab PO SCH ×2 (09:12→20:51)
--- NOTE | 2018-12-07 09:31 | PCM.PN ---
- General Info Date of Service: 12/07/18 Admission Dx/Problem (Free Text): Admission Diagnosis/Problem Admission Diagnosis/Problem Cirrhosis of liver Subjective Update: Follow Up Functional Status: Reports: Pain Controlled, Tolerating Diet, Urinating. Denies : New Symptoms - Review of Systems General: Reports: Weakness, Fatigue. Denies: Fever, Chills HEENT: Reports: No Symptoms Pulmonary: Denies: Shortness of Breath Cardiovascular: Denies: Chest Pain, Dyspnea on Exertion, Lightheadedness Gastrointestinal: Reports: Diarrhea, Other. Denies: Abdominal Pain, Nausea, Vomiting Skin: Denies: Cyanosis, Mottled, Pallor, Diaphoresis, Bruising Neurological: Reports: Difficulty Walking, Weakness, Gait Disturbance. Denies: Confusion Psychiatric: Denies: Depression, Anxiety, Agitation, Hallucinations Systems Review Comment:: No significant overnight issues. He states, "I feel weak". He ate fair amount fo his breakfast meal. He looks weak and tired. He has a one time episode of rectal bleed. His Hgb remains stable at 9.6. His glucose level overall has improved. His Albumin level remains low. - Patient Data Vitals - Most Recent: Last Vital Signs Temp 36.4 C 12/07/18 08:00 Pulse 91 12/07/18 00:00 Resp 20 12/07/18 08:00 BP 119/66 12/07/18 08:00 Pulse Ox 92 L 12/07/18 08:00 Weight - Most Recent: 131.542 kg I&O - Last 24 Hours: Intake & Output 12/06/18 12/07/18 12/07/18 22:59 06:59 14:59 Intake Total 550 100 Output Total 775 505 60 Balance -225 -405 -60 Lab Results Last 24 Hours: Laboratory Results - last 24 hr 12/06/18 12/06/18 12/07/18 Range/Units 12:44 17:48 00:13 WBC (4.23-9.07) K/mm3 RBC (4.63-6.08) M/mm3 Hgb (13.7-17.5) gm/L Hct (40.1-51.0) % MCV (79.0-92.2) fl MCH (25.7-32.2) pg MCHC (32.2-35.5) g/dl RDW Std Deviation (35.1-43.9) fL Plt Count (163-337) K/mm3 MPV (9.4-12.3) fl Neut % (Auto) (34.0-67.9) % Lymph % (Auto) (21.8-53.1) % Esmeralda % (Auto) (5.3-12.2) % Eos % (Auto) (0.8-7.0) Baso % (Auto) (0.1-1.2) % Neut # (Auto) (1.78-5.38) K/mm3 Lymph # (Auto) (1.32-3.57) K/mm3 Esmeralda # (Auto) (0.30-0.82) K/mm3 Eos # (Auto) (0.04-0.54) K/mm3 Baso # (Auto) (0.01-0.08) K/mm3 Manual Slide Review Sodium (136-145) mEq/L Potassium (3.5-5.1) mEq/L Chloride (98-107) mEq/L Carbon Dioxide (21-32) mEq/L Anion Gap (5-15) BUN (7-18) mg/dL Creatinine (0.7-1.3) mg/dL Est Cr Clr Drug Dosing mL/min Estimated GFR (MDRD) (>60) mL/min BUN/Creatinine Ratio (14-18) Glucose (74-106) mg/dL POC Glucose 183 H 118 H (70-105) mg/dL Calcium (8.5-10.1) mg/dL Magnesium (1.8-2.4) mg/dl Total Bilirubin (0.2-1.0) mg/dL AST (15-37) U/L ALT (16-63) U/L Alkaline Phosphatase (46-116) U/L Troponin I 0.049 (0.00-0.056) ng/mL Total Protein (6.4-8.2) g/dl Albumin (3.4-5.0) g/dl Globulin gm/dL Albumin/Globulin Ratio (1-2) 12/07/18 12/07/18 12/07/18 Range/Units 01:07 02:45 02:45 WBC 6.98 (4.23-9.07) K/mm3 RBC 2.94 L (4.63-6.08) M/mm3 Hgb 9.6 L (13.7-17.5) gm/L Hct 29.2 L (40.1-51.0) % MCV 99.3 H (79.0-92.2) fl MCH 32.7 H (25.7-32.2) pg MCHC 32.9 (32.2-35.5) g/dl RDW Std Deviation 57.3 H (35.1-43.9) fL Plt Count 38 L (163-337) K/mm3 MPV 9.6 (9.4-12.3) fl Neut % (Auto) 84.9 H (34.0-67.9) % Lymph % (Auto) 5.4 L (21.8-53.1) % Esmeralda % (Auto) 9.3 (5.3-12.2) % Eos % (Auto) 0 L (0.8-7.0) Baso % (Auto) 0.0 L (0.1-1.2) % Neut # (Auto) 5.92 H (1.78-5.38) K/mm3 Lymph # (Auto) 0.38 L (1.32-3.57) K/mm3 Esmeralda # (Auto) 0.65 (0.30-0.82) K/mm3 Eos # (Auto) 0.00 L (0.04-0.54) K/mm3 Baso # (Auto) 0.00 L (0.01-0.08) K/mm3 Manual Slide Review Abnormal smear Sodium 151 H (136-145) mEq/L Potassium 3.6 (3.5-5.1) mEq/L Chloride 123 H (98-107) mEq/L Carbon Dioxide 21 (21-32) mEq/L Anion Gap 10.6 (5-15) BUN 47 H (7-18) mg/dL Creatinine 1.1 (0.7-1.3) mg/dL Est Cr Clr Drug Dosing 74.66 mL/min Estimated GFR (MDRD) > 60 (>60) mL/min BUN/Creatinine Ratio 42.7 H (14-18) Glucose 116 H (74-106) mg/dL POC Glucose 111 H (70-105) mg/dL Calcium 7.9 L (8.5-10.1) mg/dL Magnesium 2.2 (1.8-2.4) mg/dl Total Bilirubin 2.6 H (0.2-1.0) mg/dL AST 49 H (15-37) U/L ALT 43 (16-63) U/L Alkaline Phosphatase 69 (46-116) U/L Troponin I (0.00-0.056) ng/mL Total Protein 5.6 L (6.4-8.2) g/dl Albumin 1.6 L (3.4-5.0) g/dl Globulin 4.0 gm/dL Albumin/Globulin Ratio 0.4 L (1-2) Med Orders - Current: Current Medications Hydrocodone Bitart/Acetaminophen ([place] 325-5 Mg) 1 tab PO Q4H PRN PRN Reason: Pain (moderate 4-6) Last Admin: 12/07/18 08:55 Dose: 1 tab Al Hydroxide/Mg Hydroxide (Mag-Al Plus) 30 ml PO Q4H PRN PRN Reason: Heartburn Last Admin: 12/06/18 21:39 Dose: 30 ml Albuterol/Ipratropium (Duoneb 3.0-0.5 Mg/3 Ml) 3 ml NEB Q8HRRT [facility] Last Admin: 12/07/18 06:31 Dose: 3 ml Bumetanide (Bumex) 0.5 mg IVPUSH BID [facility] Last Admin: 12/07/18 08:50 Dose: 0.5 mg Famotidine (Pepcid) 20 mg IVPUSH BID [facility] Last Admin: 12/07/18 08:52 Dose: 20 mg Glipizide (Glucotrol Xl) 2.5 mg PO BID [facility] Last Admin: 12/07/18 08:48 Dose: 2.5 mg Insulin Glargine (Lantus) 10 unit SUBCUT BID [facility] Last Admin: 12/07/18 08:49 Dose: 10 units Insulin Human Lispro (Humalog) 0 unit SUBCUT Q6HR [facility]; Protocol Last Admin: 12/07/18 05:28 Dose: Not Given Lactulose (Cephulac) 20 gm PO TID@0700,1400,2100 [facility] Last Admin: 12/07/18 06:11 Dose: 20 gm Levofloxacin (Levaquin) 750 mg PO Q24H [facility] Last Admin: 12/06/18 11:42 Dose: 750 mg Lorazepam (Ativan) 1 mg IVPUSH Q6H PRN PRN Reason: restlessness Last Admin: 12/06/18 21:31 Dose: 1 mg Magnesium Oxide (Magnesium Oxide) 800 mg PO BID [facility] Last Admin: 12/07/18 08:48 Dose: 800 mg Metoclopramide HCl (Reglan) 10 mg IVPUSH Q6H [facility] Last Admin: 12/07/18 05:20 Dose: 10 mg Modafinil (Provigil) 200 mg PO DAILY [facility] Last Admin: 12/07/18 08:47 Dose: 200 mg Morphine Sulfate (Morphine) 1 mg IVPUSH Q4H PRN PRN Reason: Shortness of Breath Last Admin: 12/06/18 21:31 Dose: 1 mg Racepinephrine (S-2 2.25%) 0.5 ml NEB Q4HRRT PRN PRN Reason: choking Last Admin: 12/06/18 10:14 Dose: 0.5 ml Rifaximin (Xifaxan) 550 mg PO BID [facility] Last Admin: 12/07/18 09:12 Dose: 550 mg Saccharomyces Boulardii (Florastor) 250 mg PO BID [facility] Last Admin: 12/07/18 08:48 Dose: 250 mg Sodium Chloride (Saline Flush) 10 ml FLUSH ASDIRECTED PRN PRN Reason: Keep Vein Open Last Admin: 11/30/18 16:56 Dose: 10 ml Sodium Chloride (Sodium Chloride 0.9%) 3 ml INH ASDIRECTED PRN PRN Reason: mix with racepinephrine neb Spironolactone (Aldactone) 12.5 mg PO BID [facility] Last Admin: 12/07/18 08:49 Dose: 12.5 mg Discontinued Medications Bumetanide (Bumex) 1 mg IVPUSH ONETIME ONE Stop: 12/03/18 16:12 Last Admin: 12/03/18 16:25 Dose: 1 mg Bumetanide (Bumex) 1 mg IVPUSH ONETIME ONE Stop: 12/03/18 21:01 Last Admin: 12/03/18 21:16 Dose: 1 mg Bumetanide (Bumex) 1 mg IVPUSH ONETIME ONE Stop: 12/04/18 13:25 Last Admin: 12/04/18 14:36 Dose: 1 mg Calcium Carbonate/Glycine (Calcium Carbonate) 1,200 mg PO ONETIME ONE Stop: 12/02/18 22:23 Last Admin: 12/02/18 22:42 Dose: 1,200 mg Calcium Carbonate/Glycine (Tums) 1,000 mg PO ONETIME ONE Stop: 12/04/18 21:33 Last Admin: 12/04/18 22:32 Dose: 1,000 mg Calcium Gluconate (Calcium Gluconate) 1 gm IVPUSH ONETIME ONE Stop: 12/03/18 14:10 Last Admin: 12/03/18 14:47 Dose: Not Given Dexamethasone (Dexamethasone) 4 mg IVPUSH Q12H [facility] Last Admin: 12/03/18 05:48 Dose: 4 mg Dexamethasone (Dexamethasone) 4 mg IVPUSH Q12H [facility] Stop: 12/05/18 09:30 Last Admin: 12/05/18 09:04 Dose: 4 mg Erythromycin (Jed-Tab) 250 mg PO Q8HR [facility] Last Admin: 12/03/18 05:41 Dose: 250 mg Etomidate (Amidate) 30 mg IVPUSH ONETIME ONE Stop: 11/30/18 18:39 Last Admin: 11/30/18 18:52 Dose: 30 mg Famotidine (Pepcid) 20 mg IVPUSH ONETIME ONE Stop: 11/30/18 21:57 Last Admin: 11/30/18 22:26 Dose: 20 mg Furosemide (Lasix) 20 mg IVPUSH NOW ONE Stop: 12/01/18 23:01 Last Admin: 12/01/18 23:16 Dose: 20 mg Furosemide (Lasix) 40 mg PO DAILY [facility] Last Admin: 12/05/18 09:11 Dose: 40 mg Sodium Chloride (Normal Saline) 1,000 mls @ 125 mls/hr IV ASDIRECTED [facility] Last Admin: 11/30/18 16:55 Dose: 125 mls/hr Propofol (Diprivan 100 Ml) 100 mls @ 7.348 mls/hr IV TITRATE [facility]; Protocol Last Titration: 12/01/18 11:09 Dose: 0 mcg/kg/min, 0 mls/hr Propofol (Diprivan 100 Ml) Confirm Administered Dose 100 mls @ as directed .ROUTE .STK-MED ONE Stop: 11/30/18 19:02 Last Admin: 11/30/18 19:15 Dose: Not Given Dextrose/Sodium Chloride (Dextrose 5%-Normal Saline) 1,000 mls @ 100 mls/hr IV ASDIRECTED [facility] Last Admin: 12/01/18 09:20 Dose: 100 mls/hr Magnesium Sulfate 4 gm/ Premix 50 mls @ 12.5 mls/hr IV ONETIME ONE Stop: 12/01/18 13:28 Last Admin: 12/01/18 09:50 Dose: 12.5 mls/hr Magnesium Sulfate 4 gm/ Premix 50 mls @ 12.5 mls/hr IV ONETIME ONE Stop: 12/01/18 23:59 Last Admin: 12/01/18 19:58 Dose: 12.5 mls/hr Potassium Chloride/Sodium Chloride (Normal Saline With 20 Meq Kcl) 1,000 mls [facility] Admin: 12/02/18 01:03 Dose: 100 mls/hr Potassium Chloride/Sodium Chloride (Normal Saline With 20 Meq Kcl) 500 mls @ 500 [facility]ls[facility] Stop: 12/01/18 19:29 Last Admin: 12/01/18 18:47 Dose: 500 mls/hr Piperacillin Sod/Tazobactam (Sod 4.5 gm/ Sodium Chloride) 100 mls @ 25 mls/hr IV Q8H [facility] Last Admin: 12/06/18 01:18 Dose: 25 mls/hr Piperacillin Sod/Tazobactam (Sod 4.5 gm/ Sodium Chloride) 100 mls @ 200 mls/hr IV ONETIME ONE Stop: 12/01/18 19:14 Last Admin: 12/01/18 19:14 Dose: 200 mls/hr Dextrose/Sodium Chloride (Dextrose 5%-Normal Saline) 1,000 mls @ 100 mls/hr IV ASDIRECTED [facility] Last Admin: 12/02/18 05:46 Dose: 100 mls/hr Levofloxacin/Dextrose 750 mg/ (Premix) 150 mls @ 100 mls/hr IV ONETIME ONE Stop: 12/02/18 07:29 Last Admin: 12/02/18 08:46 Dose: Not Given Sodium Chloride (Normal Saline) 500 mls @ 999 mls/hr IV .BOLUS ONE Stop: 12/02/18 05:56 Last Admin: 12/02/18 05:45 Dose: 999 mls/hr Sodium Chloride (Normal Saline) Confirm Administered Dose 500 mls @ as directed .ROUTE .STK-MED ONE Stop: 12/02/18 05:45 Last Admin: 12/02/18 05:50 Dose: Not Given Norepinephrine Bitartrate 4 mg (/ Dextrose/Water) 250 mls @ 7.5 mls/hr IV TITRATE [facility]; Protocol Last Titration: 12/02/18 11:17 Dose: 0 mcg/min, 0 mls/hr Levofloxacin/Dextrose 750 mg/ (Premix) 150 mls @ 100 mls/hr IV ONETIME ONE Stop: 12/02/18 13:29 Last Admin: 12/02/18 12:15 Dose: 100 mls/hr Sodium Chloride (Normal Saline) 2,000 mls @ 999 mls/hr IV ONETIME ONE Stop: 12/02/18 10:42 Last Admin: 12/02/18 09:11 Dose: 999 mls/hr Potassium Chloride/Sodium Chloride (Normal Saline With 20 Meq Kcl) 1,000 mls @ 150 mls/hr IV ASDIRECTED [facility] Last Admin: 12/03/18 08:14 Dose: 150 mls/hr Dextrose/Sodium Chloride (Dextrose 5%-Normal Saline) 1,000 mls @ 150 mls/hr IV ASDIRECTED [facility] Last Admin: 12/02/18 22:32 Dose: 150 mls/hr Sodium Chloride (Normal Saline) 100 mls @ 60 mls/hr IV ASDIRECTED [facility] Last Admin: 12/02/18 14:44 Dose: 60 mls/hr Sodium Chloride (Normal Saline) 1,000 mls @ 999 mls/hr IV ONETIME ONE Stop: 12/02/18 15:18 Last Admin: 12/02/18 15:00 Dose: 999 mls/hr Levofloxacin/Dextrose 750 mg/ (Premix) 150 mls @ 100 mls/hr IV Q24H [facility] Levofloxacin/Dextrose 750 mg/ (Premix) 150 mls @ 100 mls/hr IV Q24H [facility] Last Admin: 12/05/18 15:11 Dose: 100 mls/hr Calcium Gluconate 1 gm/ Sodium (Chloride) 60 mls @ 120 mls/hr IV ONETIME ONE Stop: 12/03/18 15:29 Last Admin: 12/03/18 14:37 Dose: 100 mls/hr Sodium Chloride (Normal Saline) 1,000 mls @ 75 mls/hr IV ASDIRECTED [facility] Last Infusion: 12/04/18 18:14 Dose: 25 mls/hr Sodium Chloride (Normal Saline) 1,000 mls @ 25 mls/hr IV ASDIRECTED [facility] Last Admin: 12/04/18 18:15 Dose: 25 mls/hr Insulin Human Lispro (Humalog) 0 unit SUBCUT Q6HR [facility]; Protocol Last Admin: 12/03/18 12:27 Dose: 9 unit Insulin Human Lispro (Humalog) 0 unit SUBCUT QIDACANDBED [facility]; Protocol Last Admin: 12/03/18 17:32 Dose: 9 units Iopamidol (Isovue-370 (76%)) 100 ml IV ONETIME ONE Stop: 12/02/18 07:40 Last Admin: 12/02/18 09:30 Dose: 100 ml Iopamidol (Isovue-370 (76%)) 100 ml IV ONETIME ONE Stop: 12/02/18 14:19 Last Admin: 12/02/18 14:44 Dose: 100 ml Lactulose (Cephulac) 60 gm NGTUBE ONETIME ONE Stop: 11/30/18 19:01 Last Admin: 11/30/18 19:52 Dose: 60 gm Lactulose (Cephulac) 60 gm PO ONETIME ONE Stop: 12/01/18 01:01 Last Admin: 12/01/18 01:00 Dose: 60 gm Lactulose (Cephulac) 45 gm PO Q6H [facility] Last Admin: 12/02/18 09:16 Dose: Not Given Lactulose (Cephulac) 30 gm PO BID [facility] Last Admin: 12/04/18 16:28 Dose: 30 gm Lactulose (Cephulac) 30 gm PO TID [facility] Last Admin: 12/05/18 15:14 Dose: 30 gm Lactulose (Cephulac) 20 gm PO BID [facility] Last Admin: 12/06/18 08:37 Dose: 20 gm Methylprednisolone Sodium Succinate (Solu-Medrol) 125 mg IVPUSH Q8H [facility] Stop: 12/04/18 06:01 Last Admin: 12/04/18 05:40 Dose: 125 mg Midazolam HCl (Versed 1 Mg/Ml) 5 mg IVPUSH ONETIME ONE Stop: 11/30/18 19:30 Last Admin: 11/30/18 19:32 Dose: 5 mg Modafinil (Provigil) 200 mg PO DAILY [facility] Stop: 12/04/18 07:30 Last Admin: 12/03/18 08:00 Dose: 200 mg Modafinil (Provigil) 100 mg PO ONETIME ONE Stop: 12/02/18 20:45 Last Admin: 12/02/18 21:10 Dose: 100 mg Modafinil (Provigil) 200 mg PO NOW STA Stop: 12/04/18 13:28 Last Admin: 12/04/18 15:15 Dose: 200 mg Morphine Sulfate (Morphine) 1 mg IVPUSH ONETIME ONE Stop: 12/01/18 11:18 Last Admin: 12/01/18 11:37 Dose: 1 mg Morphine Sulfate (Morphine) 2 mg IVPUSH ONETIME ONE Stop: 12/01/18 16:46 Last Admin: 12/01/18 16:52 Dose: 2 mg Morphine Sulfate (Morphine) 2 mg IVPUSH Q4H PRN PRN Reason: Shortness of Breath Last Admin: 12/04/18 17:06 Dose: 2 mg Morphine Sulfate (Morphine) 1 mg IVPUSH ONETIME ONE Stop: 12/03/18 16:11 Last Admin: 12/03/18 16:24 Dose: 1 mg Racepinephrine (S-2 2.25%) 0.5 ml NEB Q4HRRT PRN PRN Reason: subglottic narrowing Racepinephrine (S-2 2.25%) 0.5 ml NEB TID [facility] Stop: 12/06/18 09:00 Last Admin: 12/05/18 20:23 Dose: 0.5 ml Racepinephrine (S-2 2.25%) 0.5 ml NEB ONETIME ONE Stop: 12/04/18 13:41 Last Admin: 12/04/18 13:40 Dose: 0.5 ml Rivaroxaban (Xarelto) 20 mg PO DAILY [facility] Last Admin: 12/05/18 12:37 Dose: Not Given Rivaroxaban (Xarelto) 20 mg PO ONETIME ONE Stop: 12/04/18 21:28 Last Admin: 12/04/18 22:32 Dose: 20 mg Sodium Chloride (Saline Flush) 10 ml FLUSH ONETIME ONE Stop: 12/02/18 07:40 Last Admin: 12/02/18 09:30 Dose: 10 ml Sodium Chloride (Sodium Chloride 0.9%) 0 ml INH TID [facility] Stop: 12/06/18 09:00 Last Admin: 12/06/18 10:15 Dose: 3 ml Sodium Chloride (Sodium Chloride 0.9%) 3 ml INH ASDIRECTED PRN PRN Reason: mix with racepinephrine neb Succinylcholine Chloride (Quelicin) 180 mg IV ONETIME ONE Stop: 11/30/18 18:46 Last Admin: 11/30/18 18:53 Dose: 180 mg - Exam General: Sedated, Other (Obese) HEENT: Pupils Equal, Pupils Reactive, Mucous Membr. Moist/[place] Neck: Supple Lungs: Normal Respiratory Effort, Decreased Breath Sounds Cardiovascular: Regular Rate, Regular Rhythm GI/Abdominal Exam: Normal Bowel Sounds, Soft, Non-Tender, No Abnormal Bruit, Distended, Hepatomegaly. No: Guarding, Rigid, Rebound (Male) Exam: Other (indwelling perez catheter and improved scrotal edema) Extremities: Non-Tender, Normal Capillary Refill, Pedal Edema, Limited Range of Motion Peripheral Pulses: 1+: Dorsalis Pedis (L), Dorsalis Pedis (R) Skin: Warm, Dry, Intact Neurological: Other (deferred: he is too weka to follow commands) Psy/Mental Status: No: Normal Affect - Problem List Review Problem List Initiated/Reviewed/Updated: Yes - My Orders Last 24 Hours: My Active Orders 12/06/18 09:00 Magnesium Oxide 800 mg PO BID glipiZIDE [Glucotrol XL] 2.5 mg PO BID 12/06/18 11:00 Metoclopramide [Reglan] 10 mg IVPUSH Q6H levoFLOXacin [Levaquin] 750 mg PO Q24H 12/06/18 14:00 Lactulose [Cephulac] 20 gm PO TID@0700,1400,2100 12/08/18 05:11 CBC WITH AUTO DIFF [HEME] AM CMP [COMPREHENSIVE METABOLIC PN,CMP] [CHEM] AM MG [MAGNESIUM] [CHEM] AM 12/09/18 05:11 CBC WITH AUTO DIFF [HEME] AM CMP [COMPREHENSIVE METABOLIC PN,CMP] [CHEM] AM MG [MAGNESIUM] [CHEM] AM - Plan Plan:: Assessment/Plan: Acute: Persistent Hepatic Encephalopathy - Acute on Chronic - 2/2 Advanced Liver Disease and Medical Non-compliance - Ammonia level is 167--> now 20; Bilirubin level trended up but now 1.9; 2.9 today - Unsure if he is taking his home meds; reportedly just returned home from a long trip - Resume Home Meds as ordered - Continue Lactulose and Xifaxan; discontinued steroid - Monitor Ammonia level - Avoid NSAIDs - Repeat Head CT scan this AM report reads no acute intra-cranial abnormality - MVI, Folic and Thiamine Supplement when able to swallow Cholestasis, Slightly Up - T. Bilirubin 4.4-->3.4 -->2.5-->1.9-->2.6 - Has underlying liver failure - Risk factors: DM2 and Medications - Consider restarting steroid; if levels continues to go up Permissive Hyperglycemia in Type II DM - BS still in the in the 200s; Improved - He have his first meal since admission - Hold home PO meds until mental status improves -> resume as ordered - Accu-check Q6H with ISS coverage - Lantus 10 units subQ BID and Low dose Glucotrol 2.5 mg po BID - A1C 6.3 (improved from 7.4 on 08/01/19) Bibasilar Pneumonia w/ Small Pleural Effusion - CTA report reads parenchymal densities within both lung bases; R>>L - Continue IV Zosyn and Levaquin for pharmacy to dose; discontinue after total of 5 day treatment - IS as directed - Repeat Chest CT 12/05/2018 report reads improved right lower lobe parenchymal density with worsening bilateral patchy areas of alveolar density within both lungs. No mass is definitely appreciated on this exam. Small right sided pleural effusion. -Last dose antibiotic today - Repeat CRX in AM Hypocalcemia - Ca 7.1--> 6.9-->7.3-->7.1 - 2/2 GI loss and NPO status - Replete and monitor Generalized Edema with > 10 lbs Weight Gain - 122lbs on admission; 131lbs today - 2/2 Volume overload - Continue Bumex 0.5 mg IVP BID and low dose HCTZ BID - Albumin infusion due to low albumin state from liver cirrhosis Rectal Bleed - Carries a hx/o Intestinal Varices - Hgb remains stable; will continue to monitor - Continue to avoid anticoagulant Colonic Ileus - CT scan report reads: Gaseous dilatation throughout the colon compatible with colonic ileus - He is has been mostly bedbound, also receiving PRN ativan and morphine - Abdomen more distended than usual - Prokinetic agent, continue lactulose, Xifaxan and may consider additional prokinetic agent if needed Abnormal head CT compare to 11/30/18 -CT obtained in ED 11/13/18 * 1. Mild small vessel ischemic demyelination change. * 2. Questionable diminished density within the cerebellum on both sides, worse on the left side possibly due to additional small vessel ischemic demyelination change but difficult to completely exclude early ischemic infarct. MRI study with diffusion would be helpful to confirm or rule out this possibility. * 3. No acute intracranial hemorrhage or other abnormality is seen. -MRI obtained 11/13/18: * 1. Mild small vessel ischemic demyelination change within the subcortical white matter. * 2. No abnormal signal is seen within the cerebellar hemispheres and prior CT finding most likely represents B Scott artifact. * 3. No acute diffusion abnormalities are seen -CT Abdominal/Pelvis 12/02/2018 * 1. Cirrhotic change within the liver with splenomegaly * 2. Minimal pleural effusion seen around a portion of the liver * 3. Nothing acute is appreciated Resolved: S/p Hypomagnesemia - Magnesium-repace as needed - 2/2 inadequate intake S/P ETT on propofol drip, mild sedation; Nebs scheduled; NGT placed with low intermittent suction. - CXR q AM. HOB>40 degrees. - ABG looks good this AM; will try to extubate him - He is now off propofol drip S/p Subglottic Narrowing S/p Extubation - IV Steroid and Scheduled/PRN Racemic Epinephrine - Repeat CXR shows improved abnormal findings Chronic: Advanced Liver Disease from Long Hx/o ETOH Abuse Hx/o Esophageal Varices S/p TIPS Pancytopenia 2/2 Liver Disease, Platelet and Hgb at baseline Hypoalbuminemia, 2/2 Liver Disease Albumin level at baseline DM2, Accu-check QID with ISS (will increased level to high) Hyperbilirubinemia/Cholestasis, 2/2 Advanced Liver Disease Obesity with BMI of 38 GERD Chronic Back Pain GI bleeds from Intestinal Varices and Hemorrhoids Thrombocytopenia Hepatic encephalopathy Hypothyroidism Eczema Plan: He is somewhat better today but not much Continue current treatment Routine AM Labs Cut down Morphine Dose and Lengthen Narcotic Pill Frequency GI PPx: H2B 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 Also less sedation with pain medications - Patient Instructions Diet: Diabetic Diet Activity: As Tolerated Notify Provider of: Fever, Increased Pain, Nausea and/or Vomiting - Discharge Plan *PRESCRIPTION DRUG MONITORING PROGRAM REVIEWED*: No *COPY OF PRESCRIPTION DRUG MONITORING REPORT IN PATIENT RAVI: No
[2018-12-07] MEDS: Sodium Chloride 0.9% 10 ML Syringe FLUSH PRN (10:05)
[2018-12-07] MEDS: Levofloxacin 750 MG Tab PO SCH (10:05)
[2018-12-07] MEDS: Morphine 2 MG/ML Syringe IVPUSH PRN ×2 (10:50→20:56)
[2018-12-07] MEDS ORDERED: Hydrochlorothiazide 25 MG Tab PO ONE (12:26)
[2018-12-07] MEDS ORDERED: Albumin 25% 12.5 GM/50 ML BAG IV ONE (12:27)
[2018-12-07] MEDS: Neostigmine Methylsulfate 10 MG/10 ML MDV IM SCH ×2 (13:41→19:43)
[2018-12-07] MEDS ORDERED: Albuterol/Ipratropium 3.0-0.5 MG/3 ML Neb Soln NEB PRN (19:32)
[2018-12-07] MEDS: Aluminum Hydroxide/Magnesium Hydroxide/Simethicone Susp 30 ML Cup PO PRN (20:54)
[2018-12-07] MEDS ORDERED: Hydrochlorothiazide 12.5 MG Cap PO ONE (21:00)
[2018-12-07] MEDS: LORazepam 2 MG/ML SDV IVPUSH PRN (21:33)
[2018-12-08] MEDS ORDERED: Morphine 2 MG/ML Syringe IVPUSH PRN (00:05)
[2018-12-08] MEDS: Neostigmine Methylsulfate 10 MG/10 ML MDV IM SCH ×2 (01:30→09:43)
[2018-12-08] MEDS ORDERED: Albumin 25% 12.5 GM/50 ML BAG IV ONE (04:00)
[2018-12-08] MEDS: Metoclopramide 10 MG/2 ML SDV IVPUSH SCH ×4 (05:13→22:11)
[2018-12-08] MEDS: Albuterol/Ipratropium 3.0-0.5 MG/3 ML Neb Soln NEB SCH ×3 (06:11→22:34)
[2018-12-08] MEDS: Lactulose Soln 10 GM/15 ML 30 ML UD Cup PO SCH ×3 (06:12→22:07)
[2018-12-08] MEDS: Hydrochlorothiazide 12.5 MG Cap PO SCH ×2 (06:13→15:52)
[2018-12-08] MEDS: Insulin Lispro 100 Units/ML 3 ML Vial SUBCUT SCH ×4 (07:17→22:12)
--- NOTE | 2018-12-08 08:39 | CR ---
Chest: Frontal view of the chest was obtained. Comparison: Prior chest x-ray of 12/05/18. Heart is slightly enlarged. Mild pulmonary vascular congestion remains. Slight nodular density is seen within the right mid to upper lung presumably due to persisting area of pneumonia. Lungs otherwise are clear. Bony structures are grossly intact. Impression: 1. Mild cardiomegaly and stable pulmonary vascular congestion. 2. Probable persisting area of pneumonia within the mid to upper right lung. Diagnostic code #3
[2018-12-08] MEDS ORDERED: Insulin Glarg,Human.Rec.Analog 100 UNIT/ML ML SUBCUT SCH (09:00)
[2018-12-08] MEDS: Spironolactone 25 MG Tab PO SCH ×2 (09:30→22:08)
[2018-12-08] MEDS: Rifaximin 550 MG Tab PO SCH ×2 (09:33→22:07)
[2018-12-08] MEDS: Modafinil 200 MG Tab PO SCH (09:33)
[2018-12-08] MEDS: Caffeine 200 MG Tab PO SCH (09:33)
[2018-12-08] MEDS: Magnesium Oxide 400 MG Tab PO SCH ×2 (09:33→22:09)
[2018-12-08] MEDS: glipiZIDE 2.5 MG Tab.ER PO SCH ×2 (09:39→22:07)
[2018-12-08] MEDS: Saccharomyces Boulardii (Probiotic) 250 MG Cap PO SCH ×2 (09:39→22:07)
[2018-12-08] MEDS: Bumetanide 1 MG/4 ML MDV IVPUSH SCH ×2 (09:40→22:09)
[2018-12-08] MEDS: Famotidine 20 MG/2 ML SDV IVPUSH SCH ×2 (09:41→22:10)
[2018-12-08] MEDS: Insulin Glarg,Human.Rec.Analog 100 UNIT/ML ML SUBCUT SCH ×2 (09:41→22:14)
[2018-12-08] MEDS: Acetaminophen/HYDROcodone 325-5 MG Tab PO PRN (11:37)
--- NOTE | 2018-12-08 16:45 | CR ---
Abdomen: Supine view of the abdomen was obtained. Comparison: Prior CT abdomen and pelvis exam of 12/06/18. Diffuse gaseous dilatation throughout the colon is seen. Lesser gaseous dilatation is seen within portions of small bowel. Bony structures show nothing acute. Impression: 1. Diffuse gaseous dilatation of colon as well as of several small bowel loops. Findings most likely representing fairly severe ileus. Findings are fairly stable from recent CT exam. Diagnostic code #3
[2018-12-08] MEDS ORDERED: LORazepam 2 MG/ML SDV IVPUSH PRN (17:32)
[2018-12-08] MEDS ORDERED: Dexamethasone 4 MG/ML SDV IVPUSH ONE (17:32)
--- NOTE | 2018-12-08 20:52 | PCM.SURGPN ---
- General Info Date of Service: 12/08/18 - Patient Data Vitals - Most Recent: Last Vital Signs Temp 98.4 F 12/08/18 19:46 Pulse 96 12/08/18 19:46 Resp 18 12/08/18 19:46 BP 140/82 12/08/18 19:46 Pulse Ox 91 L 12/08/18 19:46 Weight - Most Recent: 130.181 kg I&O - Last 24 Hours: Intake & Output 12/08/18 12/08/18 12/08/18 07:59 15:59 23:59 Intake Total 250 60 360 Output Total 1125 710 330 Balance -875 650 30 Lab Results Last 24 Hrs: Laboratory Results - last 24 hr 12/07/18 12/07/18 12/07/18 Range/Units 21:40 22:19 22:34 WBC (4.23-9.07) K/mm3 RBC (4.63-6.08) M/mm3 Hgb (13.7-17.5) gm/L Hct (40.1-51.0) % MCV (79.0-92.2) fl MCH (25.7-32.2) pg MCHC (32.2-35.5) g/dl RDW Std Deviation (35.1-43.9) fL Plt Count (163-337) K/mm3 MPV (9.4-12.3) fl Neut % (Auto) (34.0-67.9) % Lymph % (Auto) (21.8-53.1) % [place] % (Auto) (5.3-12.2) % Eos % (Auto) (0.8-7.0) Baso % (Auto) (0.1-1.2) % Neut # (Auto) (1.78-5.38) K/mm3 Lymph # (Auto) (1.32-3.57) K/mm3 [place] # (Auto) (0.30-0.82) K/mm3 Eos # (Auto) (0.04-0.54) K/mm3 Baso # (Auto) (0.01-0.08) K/mm3 Manual Slide Review PT (9.5-12.1) SECONDS INR Puncture Site Rt radial ABG pH 7.37 (7.35-7.45) ABG pCO2 35.2 (35.0-45.0) mmHg ABG pO2 59.0 L (80.0-100.0) mmHg ABG HCO3 19.8 L (22.0-26.0) meq/L ABG O2 Saturation 90.8 L (96.0-97.0) % ABG Base Excess -4.4 L (-2-2.0) A-a Gradient 101 mmHg O2 Delivery Device Cannula Oxygen Flow Rate 3.0 FiO2 32.00 (21.00-100.00) % Sodium (136-145) mEq/L Potassium (3.5-5.1) mEq/L Chloride (98-107) mEq/L Carbon Dioxide (21-32) mEq/L Anion Gap (5-15) BUN (7-18) mg/dL Creatinine (0.7-1.3) mg/dL Est Cr Clr Drug Dosing mL/min Estimated GFR (MDRD) (>60) mL/min BUN/Creatinine Ratio (14-18) Glucose (74-106) mg/dL POC Glucose 154 H (70-105) mg/dL Calcium (8.5-10.1) mg/dL Magnesium (1.8-2.4) mg/dl Total Bilirubin (0.2-1.0) mg/dL AST (15-37) U/L ALT (16-63) U/L Alkaline Phosphatase (46-116) U/L Ammonia 20 (11-32) umol/L Total Protein (6.4-8.2) g/dl Albumin (3.4-5.0) g/dl Globulin gm/dL Albumin/Globulin Ratio (1-2) 12/08/18 12/08/18 12/08/18 Range/Units 05:04 05:04 05:04 WBC 7.42 (4.23-9.07) K/mm3 RBC 3.08 L (4.63-6.08) M/mm3 Hgb 10.2 L (13.7-17.5) gm/L Hct 30.8 L (40.1-51.0) % MCV 100.0 H (79.0-92.2) fl MCH 33.1 H (25.7-32.2) pg MCHC 33.1 (32.2-35.5) g/dl RDW Std Deviation 59.7 H (35.1-43.9) fL Plt Count 41 L (163-337) K/mm3 MPV 10.3 (9.4-12.3) fl Neut % (Auto) 85.4 H (34.0-67.9) % Lymph % (Auto) 7.0 L (21.8-53.1) % [place] % (Auto) 7.3 (5.3-12.2) % Eos % (Auto) 0 L (0.8-7.0) Baso % (Auto) 0.0 L (0.1-1.2) % Neut # (Auto) 6.34 H (1.78-5.38) K/mm3 Lymph # (Auto) 0.52 L (1.32-3.57) K/mm3 [place] # (Auto) 0.54 (0.30-0.82) K/mm3 Eos # (Auto) 0.00 L (0.04-0.54) K/mm3 Baso # (Auto) 0.00 L (0.01-0.08) K/mm3 Manual Slide Review Abnormal smear PT 19.8 H (9.5-12.1) SECONDS INR 1.84 Puncture Site ABG pH (7.35-7.45) ABG pCO2 (35.0-45.0) mmHg ABG pO2 (80.0-100.0) mmHg ABG HCO3 (22.0-26.0) meq/L ABG O2 Saturation (96.0-97.0) % ABG Base Excess (-2-2.0) A-a Gradient mmHg O2 Delivery Device Oxygen Flow Rate FiO2 (21.00-100.00) % Sodium 152 H (136-145) mEq/L Potassium 3.5 (3.5-5.1) mEq/L Chloride 119 H (98-107) mEq/L Carbon Dioxide 25 (21-32) mEq/L Anion Gap 11.5 (5-15) BUN 41 H (7-18) mg/dL Creatinine 1.1 (0.7-1.3) mg/dL Est Cr Clr Drug Dosing 74.66 mL/min Estimated GFR (MDRD) > 60 (>60) mL/min BUN/Creatinine Ratio 37.3 H (14-18) Glucose 147 H (74-106) mg/dL POC Glucose (70-105) mg/dL Calcium 8.3 L (8.5-10.1) mg/dL Magnesium 2.2 (1.8-2.4) mg/dl Total Bilirubin 4.0 H (0.2-1.0) mg/dL AST 43 H (15-37) U/L ALT 41 (16-63) U/L Alkaline Phosphatase 74 (46-116) U/L Ammonia (11-32) umol/L Total Protein 5.7 L (6.4-8.2) g/dl Albumin 1.8 L (3.4-5.0) g/dl Globulin 3.9 gm/dL Albumin/Globulin Ratio 0.5 L (1-2) 12/08/18 12/08/18 12/08/18 Range/Units 06:27 12:47 17:59 WBC (4.23-9.07) K/mm3 RBC (4.63-6.08) M/mm3 Hgb (13.7-17.5) gm/L Hct (40.1-51.0) % MCV (79.0-92.2) fl MCH (25.7-32.2) pg MCHC (32.2-35.5) g/dl RDW Std Deviation (35.1-43.9) fL Plt Count (163-337) K/mm3 MPV (9.4-12.3) fl Neut % (Auto) (34.0-67.9) % Lymph % (Auto) (21.8-53.1) % [place] % (Auto) (5.3-12.2) % Eos % (Auto) (0.8-7.0) Baso % (Auto) (0.1-1.2) % Neut # (Auto) (1.78-5.38) K/mm3 Lymph # (Auto) (1.32-3.57) K/mm3 [place] # (Auto) (0.30-0.82) K/mm3 Eos # (Auto) (0.04-0.54) K/mm3 Baso # (Auto) (0.01-0.08) K/mm3 Manual Slide Review PT (9.5-12.1) SECONDS INR Puncture Site ABG pH (7.35-7.45) ABG pCO2 (35.0-45.0) mmHg ABG pO2 (80.0-100.0) mmHg ABG HCO3 (22.0-26.0) meq/L ABG O2 Saturation (96.0-97.0) % ABG Base Excess (-2-2.0) A-a Gradient mmHg O2 Delivery Device Oxygen Flow Rate FiO2 (21.00-100.00) % Sodium (136-145) mEq/L Potassium (3.5-5.1) mEq/L Chloride (98-107) mEq/L Carbon Dioxide (21-32) mEq/L Anion Gap (5-15) BUN (7-18) mg/dL Creatinine (0.7-1.3) mg/dL Est Cr Clr Drug Dosing mL/min Estimated GFR (MDRD) (>60) mL/min BUN/Creatinine Ratio (14-18) Glucose (74-106) mg/dL POC Glucose 148 H 124 H 138 H (70-105) mg/dL Calcium (8.5-10.1) mg/dL Magnesium (1.8-2.4) mg/dl Total Bilirubin (0.2-1.0) mg/dL AST (15-37) U/L ALT (16-63) U/L Alkaline Phosphatase (46-116) U/L Ammonia (11-32) umol/L Total Protein (6.4-8.2) g/dl Albumin (3.4-5.0) g/dl Globulin gm/dL Albumin/Globulin Ratio (1-2) Med Orders - Current: Current Medications Hydrocodone Bitart/Acetaminophen ([place] 325-5 Mg) 1 tab PO Q6H PRN PRN Reason: Pain (moderate 4-6) Last Admin: 12/08/18 11:37 Dose: 1 tab Al Hydroxide/Mg Hydroxide (Mag-Al Plus) 30 ml PO Q4H PRN PRN Reason: Heartburn Last Admin: 12/07/18 20:54 Dose: 30 ml Albuterol/Ipratropium (Duoneb 3.0-0.5 Mg/3 Ml) 3 ml NEB Q8HRRT [facility]IRAJ Last Admin: 12/08/18 14:32 Dose: 3 ml Albuterol/Ipratropium (Duoneb 3.0-0.5 Mg/3 Ml) 3 ml NEB Q4HRRT PRN PRN Reason: Wheezing Bumetanide (Bumex) 0.5 mg IVPUSH BID [facility] Last Admin: 12/08/18 09:40 Dose: 0.5 mg Caffeine (Caffeine) 200 mg PO DAILY [facility] Stop: 12/09/18 12:30 Last Admin: 12/08/18 09:33 Dose: 200 mg Dexamethasone (Dexamethasone) 4 mg IVPUSH DAILY [facility] Famotidine (Pepcid) 20 mg IVPUSH BID [facility] Last Admin: 12/08/18 09:41 Dose: 20 mg Glipizide (Glucotrol Xl) 2.5 mg PO BID [facility] Last Admin: 12/08/18 09:39 Dose: 2.5 mg Hydrochlorothiazide (Hydrochlorothiazide) 12.5 mg PO BIDDIURETIC [facility] Last Admin: 12/08/18 15:52 Dose: 12.5 mg Insulin Glargine (Lantus) 10 unit SUBCUT BID [facility] Last Admin: 12/08/18 09:41 Dose: 10 units Insulin Human Lispro (Humalog) 0 unit SUBCUT QIDACANDBED [facility]; Protocol Last Admin: 12/08/18 18:09 Dose: Not Given Lactulose (Cephulac) 20 gm PO TID@0700,1400,2100 [facility] Last Admin: 12/08/18 15:51 Dose: 20 gm Lorazepam (Ativan) 0.5 mg IVPUSH Q6H PRN PRN Reason: restlessness Magnesium Oxide (Magnesium Oxide) 800 mg PO BID [facility] Last Admin: 12/08/18 09:33 Dose: 800 mg Metoclopramide HCl (Reglan) 10 mg IVPUSH Q6H [facility] Last Admin: 12/08/18 18:14 Dose: 10 mg Modafinil (Provigil) 200 mg PO DAILY [facility] Last Admin: 12/08/18 09:33 Dose: 200 mg Morphine Sulfate (Morphine) 0.5 mg IVPUSH Q4H PRN PRN Reason: Shortness of Breath Rifaximin (Xifaxan) 550 mg PO BID [facility] Last Admin: 12/08/18 09:33 Dose: 550 mg Saccharomyces Boulardii (Florastor) 250 mg PO BID [facility] Last Admin: 12/08/18 09:39 Dose: 250 mg Sodium Chloride (Saline Flush) 10 ml FLUSH ASDIRECTED PRN PRN Reason: Keep Vein Open Last Admin: 12/07/18 10:05 Dose: 10 ml Sodium Chloride (Sodium Chloride 0.9%) 3 ml INH ASDIRECTED PRN PRN Reason: mix with racepinephrine neb Spironolactone (Aldactone) 12.5 mg PO BID [facility] Last Admin: 12/08/18 09:30 Dose: 12.5 mg Discontinued Medications Hydrocodone Bitart/Acetaminophen ([place] 325-5 Mg) 1 tab PO Q4H PRN PRN Reason: Pain (moderate 4-6) Last Admin: 12/07/18 08:55 Dose: 1 tab Bumetanide (Bumex) 1 mg IVPUSH ONETIME ONE Stop: 12/03/18 16:12 Last Admin: 12/03/18 16:25 Dose: 1 mg Bumetanide (Bumex) 1 mg IVPUSH ONETIME ONE Stop: 12/03/18 21:01 Last Admin: 12/03/18 21:16 Dose: 1 mg Bumetanide (Bumex) 1 mg IVPUSH ONETIME ONE Stop: 12/04/18 13:25 Last Admin: 12/04/18 14:36 Dose: 1 mg Calcium Carbonate/Glycine (Calcium Carbonate) 1,200 mg PO ONETIME ONE Stop: 12/02/18 22:23 Last Admin: 12/02/18 22:42 Dose: 1,200 mg Calcium Carbonate/Glycine (Tums) 1,000 mg PO ONETIME ONE Stop: 12/04/18 21:33 Last Admin: 12/04/18 22:32 Dose: 1,000 mg Calcium Gluconate (Calcium Gluconate) 1 gm IVPUSH ONETIME ONE Stop: 12/03/18 14:10 Last Admin: 12/03/18 14:47 Dose: Not Given Dexamethasone (Dexamethasone) 4 mg IVPUSH Q12H [facility] Last Admin: 12/03/18 05:48 Dose: 4 mg Dexamethasone (Dexamethasone) 4 mg IVPUSH Q12H [facility] Stop: 12/05/18 09:30 Last Admin: 12/05/18 09:04 Dose: 4 mg Dexamethasone (Dexamethasone) 4 mg IVPUSH ONETIME ONE Stop: 12/08/18 17:33 Last Admin: 12/08/18 18:15 Dose: 4 mg Erythromycin (Jed-Tab) 250 mg PO Q8HR [facility] Last Admin: 12/03/18 05:41 Dose: 250 mg Etomidate (Amidate) 30 mg IVPUSH ONETIME ONE Stop: 11/30/18 18:39 Last Admin: 11/30/18 18:52 Dose: 30 mg Famotidine (Pepcid) 20 mg IVPUSH ONETIME ONE Stop: 11/30/18 21:57 Last Admin: 11/30/18 22:26 Dose: 20 mg Furosemide (Lasix) 20 mg IVPUSH NOW ONE Stop: 12/01/18 23:01 Last Admin: 12/01/18 23:16 Dose: 20 mg Furosemide (Lasix) 40 mg PO DAILY [facility]AJ Last Admin: 12/05/18 09:11 Dose: 40 mg Hydrochlorothiazide (Hydrochlorothiazide) 25 mg PO ONETIME ONE Stop: 12/07/18 12:27 Last Admin: 12/07/18 13:05 Dose: 25 mg Hydrochlorothiazide (Hydrochlorothiazide) 12.5 mg PO ONETIME ONE Stop: 12/07/18 21:01 Last Admin: 12/07/18 20:51 Dose: 12.5 mg Sodium Chloride (Normal Saline) 1,000 mls @ 125 mls/hr IV ASDIRECTED [facility]IRAJ Last Admin: 11/30/18 16:55 Dose: 125 mls/hr Propofol (Diprivan 100 Ml) 100 mls @ 7.348 mls/hr IV TITRATE [facility]IRAJ; Protocol Last Titration: 12/01/18 11:09 Dose: 0 mcg/kg/min, 0 mls/hr Propofol (Diprivan 100 Ml) Confirm Administered Dose 100 mls @ as directed .ROUTE .STK-MED ONE Stop: 11/30/18 19:02 Last Admin: 11/30/18 19:15 Dose: Not Given Dextrose/Sodium Chloride (Dextrose 5%-Normal Saline) 1,000 mls @ 100 mls/hr IV ASDIRECTED [facility]IRAJ Last Admin: 12/01/18 09:20 Dose: 100 mls/hr Magnesium Sulfate 4 gm/ Premix 50 mls @ 12.5 mls/hr IV ONETIME ONE Stop: 12/01/18 13:28 Last Admin: 12/01/18 09:50 Dose: 12.5 mls/hr Magnesium Sulfate 4 gm/ Premix 50 mls @ 12.5 mls/hr IV ONETIME ONE Stop: 12/01/18 23:59 Last Admin: 12/01/18 19:58 Dose: 12.5 mls/hr Potassium Chloride/Sodium Chloride (Normal Saline With 20 Meq Kcl) 1,000 mls @ 100 mls/hr IV ASDIRECTED [facility]IRAJ Last Admin: 12/02/18 01:03 Dose: 100 mls/hr Potassium Chloride/Sodium Chloride (Normal Saline With 20 Meq Kcl) 500 mls @ 500 mls/hr IV ASDIRECTED [facility]IRAJ Stop: 12/01/18 19:29 Last Admin: 12/01/18 18:47 Dose: 500 mls/hr Piperacillin Sod/Tazobactam (Sod 4.5 gm/ Sodium Chloride) 100 mls @ 25 mls/hr IV Q8H [facility]IRAJ Last Admin: 12/06/18 01:18 Dose: 25 mls/hr Piperacillin Sod/Tazobactam (Sod 4.5 gm/ Sodium Chloride) 100 mls @ 200 mls/hr IV ONETIME ONE Stop: 12/01/18 19:14 Last Admin: 12/01/18 19:14 Dose: 200 mls/hr Dextrose/Sodium Chloride (Dextrose 5%-Normal Saline) 1,000 mls @ 100 mls/hr IV ASDIRECTED [facility] Last Admin: 12/02/18 05:46 Dose: 100 mls/hr Levofloxacin/Dextrose 750 mg/ (Premix) 150 mls @ 100 mls/hr IV ONETIME ONE Stop: 12/02/18 07:29 Last Admin: 12/02/18 08:46 Dose: Not Given Sodium Chloride (Normal Saline) 500 mls @ 999 mls/hr IV .BOLUS ONE Stop: 12/02/18 05:56 Last Admin: 12/02/18 05:45 Dose: 999 mls/hr Sodium Chloride (Normal Saline) Confirm Administered Dose 500 mls @ as directed .ROUTE .STK-MED ONE Stop: 12/02/18 05:45 Last Admin: 12/02/18 05:50 Dose: Not Given Norepinephrine Bitartrate 4 mg (/ Dextrose/Water) 250 mls @ 7.5 mls/hr IV TITRATE [facility]IRAJ; Protocol Last Titration: 12/02/18 11:17 Dose: 0 mcg/min, 0 mls/hr Levofloxacin/Dextrose 750 mg/ (Premix) 150 mls @ 100 mls/hr IV ONETIME ONE Stop: 12/02/18 13:29 Last Admin: 12/02/18 12:15 Dose: 100 mls/hr Sodium Chloride (Normal Saline) 2,000 mls @ 999 mls/hr IV ONETIME ONE Stop: 12/02/18 10:42 Last Admin: 12/02/18 09:11 Dose: 999 mls/hr Potassium Chloride/Sodium Chloride (Normal Saline With 20 Meq Kcl) 1,000 mls @ 150 mls/hr IV ASDIRECTED [facility]IRAJ Last Admin: 12/03/18 08:14 Dose: 150 mls/hr Dextrose/Sodium Chloride (Dextrose 5%-Normal Saline) 1,000 mls @ 150 mls/hr IV ASDIRECTED [facility]IRAJ Last Admin: 12/02/18 22:32 Dose: 150 mls/hr Sodium Chloride (Normal Saline) 100 mls @ 60 mls/hr IV ASDIRECTED [facility]IRAJ Last Admin: 12/02/18 14:44 Dose: 60 mls/hr Sodium Chloride (Normal Saline) 1,000 mls @ 999 mls/hr IV ONETIME ONE Stop: 12/02/18 15:18 Last Admin: 12/02/18 15:00 Dose: 999 mls/hr Levofloxacin/Dextrose 750 mg/ (Premix) 150 mls @ 100 mls/hr IV Q24H [facility]IRAJ Levofloxacin/Dextrose 750 mg/ (Premix) 150 mls @ 100 mls/hr IV Q24H [facility]IRAJ Last Admin: 12/05/18 15:11 Dose: 100 mls/hr Calcium Gluconate 1 gm/ Sodium (Chloride) 60 mls @ 120 mls/hr IV ONETIME ONE Stop: 12/03/18 15:29 Last Admin: 12/03/18 14:37 Dose: 100 mls/hr Sodium Chloride (Normal Saline) 1,000 mls @ 75 mls/hr IV ASDIRECTED [facility]IRAJ Last Infusion: 12/04/18 18:14 Dose: 25 mls/hr Sodium Chloride (Normal Saline) 1,000 mls @ 25 mls/hr IV ASDIRECTED [facility]IRAJ Last Admin: 12/04/18 18:15 Dose: 25 mls/hr Albumin Human (Flexbumin 25%) 12.5 gm in 50 mls @ 100 mls/hr IV ONETIME ONE Stop: 12/07/18 12:56 Last Admin: 12/07/18 13:05 Dose: 100 mls/hr Albumin Human (Flexbumin 25%) 12.5 gm in 50 mls @ 100 mls/hr IV ONETIME ONE Stop: 12/08/18 04:29 Last Admin: 12/08/18 03:03 Dose: 100 mls/hr Insulin Glargine (Lantus) 10 unit SUBCUT BID [facility] Last Admin: 12/07/18 20:50 Dose: 10 units Insulin Glargine (Lantus) 12 unit SUBCUT BID [facility]IRAJ Insulin Human Lispro (Humalog) 0 unit SUBCUT Q6HR [facility]; Protocol Last Admin: 12/03/18 12:27 Dose: 9 unit Insulin Human Lispro (Humalog) 0 unit SUBCUT QIDACANDBED [facility]IRAJ; Protocol Last Admin: 12/03/18 17:32 Dose: 9 units Insulin Human Lispro (Humalog) 0 unit SUBCUT Q6HR [facility]; Protocol Last Admin: 12/07/18 23:10 Dose: 1 units Iopamidol (Isovue-370 (76%)) 100 ml IV ONETIME ONE Stop: 12/02/18 07:40 Last Admin: 12/02/18 09:30 Dose: 100 ml Iopamidol (Isovue-370 (76%)) 100 ml IV ONETIME ONE Stop: 12/02/18 14:19 Last Admin: 12/02/18 14:44 Dose: 100 ml Lactulose (Cephulac) 60 gm NGTUBE ONETIME ONE Stop: 11/30/18 19:01 Last Admin: 11/30/18 19:52 Dose: 60 gm Lactulose (Cephulac) 60 gm PO ONETIME ONE Stop: 12/01/18 01:01 Last Admin: 12/01/18 01:00 Dose: 60 gm Lactulose (Cephulac) 45 gm PO Q6H [facility]IRAJ Last Admin: 12/02/18 09:16 Dose: Not Given Lactulose (Cephulac) 30 gm PO BID [facility] Last Admin: 12/04/18 16:28 Dose: 30 gm Lactulose (Cephulac) 30 gm PO TID [facility]IRAJ Last Admin: 12/05/18 15:14 Dose: 30 gm Lactulose (Cephulac) 20 gm PO BID [facility]IRAJ Last Admin: 12/06/18 08:37 Dose: 20 gm Levofloxacin (Levaquin) 750 mg PO Q24H [facility]IRAJ Last Admin: 12/07/18 10:05 Dose: 750 mg Lorazepam (Ativan) 1 mg IVPUSH Q6H PRN PRN Reason: restlessness Last Admin: 12/07/18 21:33 Dose: 1 mg Methylprednisolone Sodium Succinate (Solu-Medrol) 125 mg IVPUSH Q8H [facility]IRAJ Stop: 12/04/18 06:01 Last Admin: 12/04/18 05:40 Dose: 125 mg Midazolam HCl (Versed 1 Mg/Ml) 5 mg IVPUSH ONETIME ONE Stop: 11/30/18 19:30 Last Admin: 11/30/18 19:32 Dose: 5 mg Modafinil (Provigil) 200 mg PO DAILY [facility] Stop: 12/04/18 07:30 Last Admin: 12/03/18 08:00 Dose: 200 mg Modafinil (Provigil) 100 mg PO ONETIME ONE Stop: 12/02/18 20:45 Last Admin: 12/02/18 21:10 Dose: 100 mg Modafinil (Provigil) 200 mg PO NOW STA Stop: 12/04/18 13:28 Last Admin: 12/04/18 15:15 Dose: 200 mg Morphine Sulfate (Morphine) 1 mg IVPUSH ONETIME ONE Stop: 12/01/18 11:18 Last Admin: 12/01/18 11:37 Dose: 1 mg Morphine Sulfate (Morphine) 2 mg IVPUSH ONETIME ONE Stop: 12/01/18 16:46 Last Admin: 12/01/18 16:52 Dose: 2 mg Morphine Sulfate (Morphine) 2 mg IVPUSH Q4H PRN PRN Reason: Shortness of Breath Last Admin: 12/04/18 17:06 Dose: 2 mg Morphine Sulfate (Morphine) 1 mg IVPUSH ONETIME ONE Stop: 12/03/18 16:11 Last Admin: 12/03/18 16:24 Dose: 1 mg Morphine Sulfate (Morphine) 1 mg IVPUSH Q4H PRN PRN Reason: Shortness of Breath Last Admin: 12/07/18 20:56 Dose: 1 mg Neostigmine Methylsulfate (Neostigmine Methylsulfate) 0.5 mg IM Q6H [facility]IRAJ Stop: 12/08/18 07:31 Last Admin: 12/08/18 09:43 Dose: 0.5 mg Racepinephrine (S-2 2.25%) 0.5 ml NEB Q4HRRT PRN PRN Reason: subglottic narrowing Racepinephrine (S-2 2.25%) 0.5 ml NEB TID DHIRAJ Stop: 12/06/18 09:00 Last Admin: 12/05/18 20:23 Dose: 0.5 ml Racepinephrine (S-2 2.25%) 0.5 ml NEB Q4HRRT PRN PRN Reason: choking Last Admin: 12/06/18 10:14 Dose: 0.5 ml Racepinephrine (S-2 2.25%) 0.5 ml NEB ONETIME ONE Stop: 12/04/18 13:41 Last Admin: 12/04/18 13:40 Dose: 0.5 ml Rivaroxaban (Xarelto) 20 mg PO DAILY [facility] Last Admin: 12/05/18 12:37 Dose: Not Given Rivaroxaban (Xarelto) 20 mg PO ONETIME ONE Stop: 12/04/18 21:28 Last Admin: 12/04/18 22:32 Dose: 20 mg Sodium Chloride (Saline Flush) 10 ml FLUSH ONETIME ONE Stop: 12/02/18 07:40 Last Admin: 12/02/18 09:30 Dose: 10 ml Sodium Chloride (Sodium Chloride 0.9%) 0 ml INH TID [facility] Stop: 12/06/18 09:00 Last Admin: 12/06/18 10:15 Dose: 3 ml Sodium Chloride (Sodium Chloride 0.9%) 3 ml INH ASDIRECTED PRN PRN Reason: mix with racepinephrine neb Succinylcholine Chloride (Quelicin) 180 mg IV ONETIME ONE Stop: 11/30/18 18:46 Last Admin: 11/30/18 18:53 Dose: 180 mg - Problem List Review Problem List Initiated/Reviewed/Updated: Yes - My Orders Last 24 Hours: Active Orders 24 hr Category Date Time Status Patient Status [ADT] Routine ADT 12/08/18 14:41 Active NG [Gastrointestinal Tube Mgmt] [RC] Q4HR Care 12/08/18 17:14 Active Notify Provider Consults [RC] ASDIRECTED Care 12/08/18 17:16 Active Consult to Physician [CONS] Routine Cons 12/08/18 17:15 Active A1C [GLYCOSYLATED HEMOGLOBIN,HGBA1C] [CHEM] Routine Lab 12/08/18 05:05 Received CBC WITH AUTO DIFF [HEME] AM Lab 12/09/18 05:11 Ordered CMP [COMPREHENSIVE METABOLIC PN,CMP] [CHEM] AM Lab 12/09/18 05:11 Ordered INR,PT,PROTHROMBIN TIME [COAG] AM Lab 12/09/18 05:11 Ordered MG [MAGNESIUM] [CHEM] AM Lab 12/09/18 05:11 Ordered Acetaminophen/HYDROcodone [[place] 325-5 MG] Med 12/08/18 00:05 Active 1 tab PO Q6H PRN Caffeine Med 12/08/18 09:00 Active 200 mg PO DAILY Dexamethasone Med 12/09/18 09:00 Active 4 mg IVPUSH DAILY Insulin Glarg,Human.Rec.Analog [LantUS] Med 12/08/18 09:00 Active 10 unit SUBCUT BID Insulin Lispro [HumaLOG] Med 12/08/18 07:00 Active 0 unit SUBCUT QIDACANDBED LORazepam [Ativan] Med 12/08/18 17:32 Active 0.5 mg IVPUSH Q6H PRN Morphine Med 12/08/18 00:05 Active 0.5 mg IVPUSH Q4H PRN hydroCHLOROthiazide Med 12/08/18 06:00 Active 12.5 mg PO BIDDIURETIC NG [Nasogastric Orogastric Tube Insertion] [OM.PC] Oth 12/08/18 17:14 Ordered Routine Rectal Tube Insertion [OM.PC] Routine Oth 12/08/18 17:15 Ordered Medication Orders Hydrocodone Bitart/Acetaminophen ([place] 325-5 Mg) 1 tab PO Q6H PRN PRN Reason: Pain (moderate 4-6) Last Admin: 12/08/18 11:37 Dose: 1 tab Al Hydroxide/Mg Hydroxide (Mag-Al Plus) 30 ml PO Q4H PRN PRN Reason: Heartburn Last Admin: 12/07/18 20:54 Dose: 30 ml Admin: 12/06/18 21:39 Dose: 30 ml Admin: 12/06/18 04:58 Dose: 30 ml Albuterol/Ipratropium (Duoneb 3.0-0.5 Mg/3 Ml) 3 ml NEB Q8HRRT DHIRAJ Last Admin: 12/08/18 14:32 Dose: 3 ml Admin: 12/08/18 06:11 Dose: 3 ml Admin: 12/07/18 20:31 Dose: 3 ml Admin: 12/07/18 13:48 Dose: 3 ml Admin: 12/07/18 06:31 Dose: 3 ml Admin: 12/06/18 20:53 Dose: 3 ml Admin: 12/06/18 13:50 Dose: 3 ml Admin: 12/06/18 06:01 Dose: 3 ml Admin: 12/05/18 21:25 Dose: 3 ml Admin: 12/05/18 14:21 Dose: 3 ml Admin: 12/05/18 06:42 Dose: 3 ml Admin: 12/04/18 22:00 Dose: 3 ml Admin: 12/04/18 14:30 Dose: 3 ml Admin: 12/04/18 05:11 Dose: 3 ml Admin: 12/03/18 20:23 Dose: 3 ml Admin: 12/03/18 13:57 Dose: 3 ml Admin: 12/03/18 05:59 Dose: 3 ml Admin: 12/02/18 20:38 Dose: 3 ml Admin: 12/02/18 14:43 Dose: 3 ml Admin: 12/02/18 06:19 Dose: 3 ml Admin: 12/01/18 20:09 Dose: 3 ml Admin: 12/01/18 13:34 Dose: 3 ml Admin: 12/01/18 05:56 Dose: 3 ml Admin: 11/30/18 23:16 Dose: 3 ml Albuterol/Ipratropium (Duoneb 3.0-0.5 Mg/3 Ml) 3 ml NEB Q4HRRT PRN PRN Reason: Wheezing Bumetanide (Bumex) 0.5 mg IVPUSH BID [facility] Last Admin: 12/08/18 09:40 Dose: 0.5 mg Admin: 12/07/18 20:56 Dose: 0.5 mg Admin: 12/07/18 08:50 Dose: 0.5 mg Admin: 12/06/18 20:21 Dose: 0.5 mg Admin: 12/06/18 08:35 Dose: 0.5 mg Admin: 12/05/18 20:03 Dose: 0.5 mg Admin: 12/05/18 09:07 Dose: 0.5 mg Admin: 12/04/18 20:37 Dose: 0.5 mg Caffeine (Caffeine) 200 mg PO DAILY [facility] Stop: 12/09/18 12:30 Last Admin: 12/08/18 09:33 Dose: 200 mg Dexamethasone (Dexamethasone) 4 mg IVPUSH DAILY [facility] Famotidine (Pepcid) 20 mg IVPUSH BID [facility] Last Admin: 12/08/18 09:41 Dose: 20 mg Admin: 12/07/18 20:56 Dose: 20 mg Admin: 12/07/18 08:52 Dose: 20 mg Admin: 12/06/18 20:21 Dose: 20 mg Admin: 12/06/18 08:37 Dose: 20 mg Admin: 12/05/18 20:04 Dose: 20 mg Admin: 12/05/18 09:00 Dose: 20 mg Admin: 12/04/18 20:32 Dose: 20 mg Admin: 12/04/18 09:45 Dose: 20 mg Admin: 12/03/18 21:22 Dose: 20 mg Admin: 12/03/18 08:00 Dose: 20 mg Admin: 12/02/18 20:46 Dose: 20 mg Admin: 12/02/18 10:14 Dose: 20 mg Admin: 12/01/18 20:45 Dose: 20 mg Admin: 12/01/18 08:19 Dose: 20 mg Glipizide (Glucotrol Xl) 2.5 mg PO BID [facility] Last Admin: 12/08/18 09:39 Dose: 2.5 mg Admin: 12/07/18 20:51 Dose: 2.5 mg Admin: 12/07/18 08:48 Dose: 2.5 mg Admin: 12/06/18 20:20 Dose: 2.5 mg Admin: 12/06/18 08:37 Dose: 2.5 mg Hydrochlorothiazide (Hydrochlorothiazide) 12.5 mg PO BIDDIURETIC [facility] Last Admin: 12/08/18 15:52 Dose: 12.5 mg Admin: 12/08/18 06:13 Dose: 12.5 mg Insulin Glargine (Lantus) 10 unit SUBCUT BID [facility] Last Admin: 12/08/18 09:41 Dose: 10 units Insulin Human Lispro (Humalog) 0 unit SUBCUT QIDACANDBED [facility]; Protocol Last Admin: 12/08/18 18:09 Dose: Not Given Admin: 12/08/18 12:47 Dose: Not Given Admin: 12/08/18 07:17 Dose: Not Given Lactulose (Cephulac) 20 gm PO TID@0700,1400,2100 [facility] Last Admin: 12/08/18 15:51 Dose: 20 gm Admin: 12/08/18 06:12 Dose: 20 gm Admin: 12/07/18 20:56 Dose: 20 gm Admin: 12/07/18 13:05 Dose: 20 gm Admin: 12/07/18 06:11 Dose: 20 gm Admin: 12/06/18 20:21 Dose: 20 gm Admin: 12/06/18 14:13 Dose: Lorazepam (Ativan) 0.5 mg IVPUSH Q6H PRN PRN Reason: restlessness Magnesium Oxide (Magnesium Oxide) 800 mg PO BID [facility] Last Admin: 12/08/18 09:33 Dose: 800 mg Admin: 12/07/18 20:50 Dose: 800 mg Admin: 12/07/18 08:48 Dose: 800 mg Admin: 12/06/18 20:20 Dose: 800 mg Admin: 12/06/18 08:37 Dose: 800 mg Metoclopramide HCl (Reglan) 10 mg IVPUSH Q6H [facility] Last Admin: 12/08/18 18:14 Dose: 10 mg Admin: 12/08/18 11:41 Dose: 10 mg Admin: 12/08/18 05:13 Dose: 10 mg Admin: 12/07/18 22:36 Dose: 10 mg Admin: 12/07/18 17:44 Dose: 10 mg Admin: 12/07/18 10:08 Dose: 10 mg Admin: 12/07/18 05:20 Dose: 10 mg Admin: 12/06/18 17:02 Dose: 10 mg Admin: 12/06/18 11:10 Dose: 10 mg Admin: 12/03/18 23:11 Dose: 10 mg Modafinil (Provigil) 200 mg PO DAILY [facility] Last Admin: 12/08/18 09:33 Dose: 200 mg Admin: 12/07/18 08:47 Dose: 200 mg Admin: 12/06/18 08:37 Dose: 200 mg Admin: 12/05/18 09:10 Dose: 200 mg Morphine Sulfate (Morphine) 0.5 mg IVPUSH Q4H PRN PRN Reason: Shortness of Breath Rifaximin (Xifaxan) 550 mg PO BID [facility] Last Admin: 12/08/18 09:33 Dose: 550 mg Admin: 12/07/18 20:51 Dose: 550 mg Admin: 12/07/18 09:12 Dose: 550 mg Admin: 12/06/18 20:20 Dose: 550 mg Admin: 12/06/18 08:37 Dose: 550 mg Admin: 12/05/18 20:06 Dose: 550 mg Admin: 12/05/18 09:09 Dose: 550 mg Admin: 12/04/18 20:46 Dose: 550 mg Admin: 12/04/18 17:23 Dose: 550 mg Admin: 12/04/18 09:42 Dose: Not Given Admin: 12/03/18 21:36 Dose: Admin: 12/03/18 08:00 Dose: 550 mg Admin: 12/02/18 20:47 Dose: 550 mg Admin: 12/02/18 10:14 Dose: 550 mg Admin: 12/01/18 20:45 Dose: 550 mg Saccharomyces Boulardii (Florastor) 250 mg PO BID [place] [facility] Last Admin: 12/08/18 09:39 Dose: 250 mg Admin: 12/07/18 20:51 Dose: 250 mg Admin: 12/07/18 08:48 Dose: 250 mg Admin: 12/06/18 20:20 Dose: 250 mg Admin: 12/06/18 08:37 Dose: 250 mg Admin: 12/05/18 20:06 Dose: 250 mg Admin: 12/05/18 09:09 Dose: 250 mg Admin: 12/04/18 20:45 Dose: 250 mg Admin: 12/04/18 09:42 Dose: Not Given Admin: 12/03/18 21:22 Dose: Admin: 12/03/18 07:59 Dose: 250 mg Sodium Chloride (Saline Flush) 10 ml FLUSH ASDIRECTED PRN PRN Reason: Keep Vein Open Last Admin: 12/07/18 10:05 Dose: 10 ml Admin: 11/30/18 16:56 Dose: 10 ml Sodium Chloride (Sodium Chloride 0.9%) 3 ml INH ASDIRECTED PRN PRN Reason: mix with racepinephrine neb Spironolactone (Aldactone) 12.5 mg PO BID [facility] Last Admin: 12/08/18 09:30 Dose: 12.5 mg Admin: 12/07/18 20:51 Dose: 12.5 mg Admin: 12/07/18 08:49 Dose: 12.5 mg Admin: 12/06/18 20:20 Dose: 12.5 mg Admin: 12/06/18 08:37 Dose: 12.5 mg Admin: 12/05/18 20:01 Dose: 12.5 mg Admin: 12/05/18 09:11 Dose: 12.5 mg Admin: 12/04/18 20:44 Dose: 12.5 mg Admin: 12/04/18 09:42 Dose: Not Given Admin: 12/03/18 21:21 Dose: Admin: 12/03/18 07:59 Dose: 12.5 mg Admin: 12/02/18 20:46 Dose: 12.5 mg Admin: 12/02/18 10:27 Dose: 12.5 mg Admin: 12/01/18 20:45 Dose: 12.5 mg Admin: 12/01/18 14:30 Dose: 12.5 mg - Plan Plan (Free Text/Narrative):: surgical consult dictated LEDY
--- NOTE | 2018-12-08 23:41 | PCM.PN ---
- General Info Date of Service: 12/08/18 Admission Dx/Problem (Free Text): Admission Diagnosis/Problem Admission Diagnosis/Problem Cirrhosis of liver Subjective Update: Follow Up Functional Status: Reports: Pain Controlled, Tolerating Diet, Urinating. Denies : New Symptoms - Review of Systems General: Denies: Fever, Chills HEENT: Reports: No Symptoms Pulmonary: Denies: Shortness of Breath Cardiovascular: Denies: Chest Pain, Dyspnea on Exertion, Lightheadedness Gastrointestinal: Reports: Abdominal Pain, Decreased Appetite, Flatus. Denies: Nausea, Vomiting Genitourinary: Reports: No Symptoms Musculoskeletal: Denies: Neck Pain Skin: Denies: Cyanosis, Mottled, Pallor, Diaphoresis Neurological: Reports: Difficulty Walking, Gait Disturbance. Denies: Confusion Psychiatric: Denies: Depression, Anxiety, Agitation, Hallucinations Systems Review Comment:: No significant overnight issues. He is currently on 1L for supplemental O2. He is alert, awake and able to answer simple questions. He is able to eat but has some trouble with swallowing per nurse. His abdomen seems to be more tight, hypoactive and distended this morning. - Patient Data Vitals - Most Recent: Last Vital Signs Temp 36.9 C 12/08/18 19:46 Pulse 96 12/08/18 19:46 Resp 18 12/08/18 19:46 BP 140/82 12/08/18 19:46 Pulse Ox 95 12/08/18 22:34 Weight - Most Recent: 130.181 kg I&O - Last 24 Hours: Intake & Output 12/08/18 12/08/18 12/09/18 14:59 22:59 06:59 Intake Total 60 360 Output Total 710 330 Balance -650 30 Lab Results Last 24 Hours: Laboratory Results - last 24 hr 12/08/18 12/08/18 12/08/18 Range/Units 05:04 05:04 05:04 WBC 7.42 (4.23-9.07) K/mm3 RBC 3.08 L (4.63-6.08) M/mm3 Hgb 10.2 L (13.7-17.5) gm/L Hct 30.8 L (40.1-51.0) % MCV 100.0 H (79.0-92.2) fl MCH 33.1 H (25.7-32.2) pg MCHC 33.1 (32.2-35.5) g/dl RDW Std Deviation 59.7 H (35.1-43.9) fL Plt Count 41 L (163-337) K/mm3 MPV 10.3 (9.4-12.3) fl Neut % (Auto) 85.4 H (34.0-67.9) % Lymph % (Auto) 7.0 L (21.8-53.1) % Preston % (Auto) 7.3 (5.3-12.2) % Eos % (Auto) 0 L (0.8-7.0) Baso % (Auto) 0.0 L (0.1-1.2) % Neut # (Auto) 6.34 H (1.78-5.38) K/mm3 Lymph # (Auto) 0.52 L (1.32-3.57) K/mm3 Preston # (Auto) 0.54 (0.30-0.82) K/mm3 Eos # (Auto) 0.00 L (0.04-0.54) K/mm3 Baso # (Auto) 0.00 L (0.01-0.08) K/mm3 Manual Slide Review Abnormal smear PT 19.8 H (9.5-12.1) SECONDS INR 1.84 Sodium 152 H (136-145) mEq/L Potassium 3.5 (3.5-5.1) mEq/L Chloride 119 H (98-107) mEq/L Carbon Dioxide 25 (21-32) mEq/L Anion Gap 11.5 (5-15) BUN 41 H (7-18) mg/dL Creatinine 1.1 (0.7-1.3) mg/dL Est Cr Clr Drug Dosing 74.66 mL/min Estimated GFR (MDRD) > 60 (>60) mL/min BUN/Creatinine Ratio 37.3 H (14-18) Glucose 147 H (74-106) mg/dL POC Glucose (70-105) mg/dL Calcium 8.3 L (8.5-10.1) mg/dL Magnesium 2.2 (1.8-2.4) mg/dl Total Bilirubin 4.0 H (0.2-1.0) mg/dL AST 43 H (15-37) U/L ALT 41 (16-63) U/L Alkaline Phosphatase 74 (46-116) U/L Total Protein 5.7 L (6.4-8.2) g/dl Albumin 1.8 L (3.4-5.0) g/dl Globulin 3.9 gm/dL Albumin/Globulin Ratio 0.5 L (1-2) 12/08/18 12/08/18 12/08/18 Range/Units 06:27 12:47 17:59 WBC (4.23-9.07) K/mm3 RBC (4.63-6.08) M/mm3 Hgb (13.7-17.5) gm/L Hct (40.1-51.0) % MCV (79.0-92.2) fl MCH (25.7-32.2) pg MCHC (32.2-35.5) g/dl RDW Std Deviation (35.1-43.9) fL Plt Count (163-337) K/mm3 MPV (9.4-12.3) fl Neut % (Auto) (34.0-67.9) % Lymph % (Auto) (21.8-53.1) % Preston % (Auto) (5.3-12.2) % Eos % (Auto) (0.8-7.0) Baso % (Auto) (0.1-1.2) % Neut # (Auto) (1.78-5.38) K/mm3 Lymph # (Auto) (1.32-3.57) K/mm3 Preston # (Auto) (0.30-0.82) K/mm3 Eos # (Auto) (0.04-0.54) K/mm3 Baso # (Auto) (0.01-0.08) K/mm3 Manual Slide Review PT (9.5-12.1) SECONDS INR Sodium (136-145) mEq/L Potassium (3.5-5.1) mEq/L Chloride (98-107) mEq/L Carbon Dioxide (21-32) mEq/L Anion Gap (5-15) BUN (7-18) mg/dL Creatinine (0.7-1.3) mg/dL Est Cr Clr Drug Dosing mL/min Estimated GFR (MDRD) (>60) mL/min BUN/Creatinine Ratio (14-18) Glucose (74-106) mg/dL POC Glucose 148 H 124 H 138 H (70-105) mg/dL Calcium (8.5-10.1) mg/dL Magnesium (1.8-2.4) mg/dl Total Bilirubin (0.2-1.0) mg/dL AST (15-37) U/L ALT (16-63) U/L Alkaline Phosphatase (46-116) U/L Total Protein (6.4-8.2) g/dl Albumin (3.4-5.0) g/dl Globulin gm/dL Albumin/Globulin Ratio (1-2) 12/08/18 Range/Units 21:28 WBC (4.23-9.07) K/mm3 RBC (4.63-6.08) M/mm3 Hgb (13.7-17.5) gm/L Hct (40.1-51.0) % MCV (79.0-92.2) fl MCH (25.7-32.2) pg MCHC (32.2-35.5) g/dl RDW Std Deviation (35.1-43.9) fL Plt Count (163-337) K/mm3 MPV (9.4-12.3) fl Neut % (Auto) (34.0-67.9) % Lymph % (Auto) (21.8-53.1) % Preston % (Auto) (5.3-12.2) % Eos % (Auto) (0.8-7.0) Baso % (Auto) (0.1-1.2) % Neut # (Auto) (1.78-5.38) K/mm3 Lymph # (Auto) (1.32-3.57) K/mm3 Preston # (Auto) (0.30-0.82) K/mm3 Eos # (Auto) (0.04-0.54) K/mm3 Baso # (Auto) (0.01-0.08) K/mm3 Manual Slide Review PT (9.5-12.1) SECONDS INR Sodium (136-145) mEq/L Potassium (3.5-5.1) mEq/L Chloride (98-107) mEq/L Carbon Dioxide (21-32) mEq/L Anion Gap (5-15) BUN (7-18) mg/dL Creatinine (0.7-1.3) mg/dL Est Cr Clr Drug Dosing mL/min Estimated GFR (MDRD) (>60) mL/min BUN/Creatinine Ratio (14-18) Glucose (74-106) mg/dL POC Glucose 161 H (70-105) mg/dL Calcium (8.5-10.1) mg/dL Magnesium (1.8-2.4) mg/dl Total Bilirubin (0.2-1.0) mg/dL AST (15-37) U/L ALT (16-63) U/L Alkaline Phosphatase (46-116) U/L Total Protein (6.4-8.2) g/dl Albumin (3.4-5.0) g/dl Globulin gm/dL Albumin/Globulin Ratio (1-2) Med Orders - Current: Current Medications Hydrocodone Bitart/Acetaminophen (Orosi 325-5 Mg) 1 tab PO Q6H PRN PRN Reason: Pain (moderate 4-6) Last Admin: 12/08/18 11:37 Dose: 1 tab Al Hydroxide/Mg Hydroxide (Mag-Al Plus) 30 ml PO Q4H PRN PRN Reason: Heartburn Last Admin: 12/07/18 20:54 Dose: 30 ml Albuterol/Ipratropium (Duoneb 3.0-0.5 Mg/3 Ml) 3 ml NEB Q8HRRT [facility] Last Admin: 12/08/18 22:34 Dose: 3 ml Albuterol/Ipratropium (Duoneb 3.0-0.5 Mg/3 Ml) 3 ml NEB Q4HRRT PRN PRN Reason: Wheezing Bumetanide (Bumex) 0.5 mg IVPUSH BID [facility] Last Admin: 12/08/18 22:09 Dose: 0.5 mg Caffeine (Caffeine) 200 mg PO DAILY [facility] Stop: 12/09/18 12:30 Last Admin: 12/08/18 09:33 Dose: 200 mg Dexamethasone (Dexamethasone) 4 mg IVPUSH DAILY [facility] Famotidine (Pepcid) 20 mg IVPUSH BID [facility] Last Admin: 12/08/18 22:10 Dose: 20 mg Glipizide (Glucotrol Xl) 2.5 mg PO BID [facility] Last Admin: 12/08/18 22:07 Dose: 2.5 mg Hydrochlorothiazide (Hydrochlorothiazide) 12.5 mg PO BIDDIURETIC [facility] Last Admin: 12/08/18 15:52 Dose: 12.5 mg Insulin Glargine (Lantus) 10 unit SUBCUT BID [facility] Last Admin: 12/08/18 22:14 Dose: 10 units Insulin Human Lispro (Humalog) 0 unit SUBCUT QIDACANDBED [facility]; Protocol Last Admin: 12/08/18 22:12 Dose: 3 units Lactulose (Cephulac) 20 gm PO TID@0700,1400,2100 [facility] Last Admin: 12/08/18 22:07 Dose: 20 gm Lorazepam (Ativan) 0.5 mg IVPUSH Q6H PRN PRN Reason: restlessness Magnesium Oxide (Magnesium Oxide) 800 mg PO BID [facility] Last Admin: 12/08/18 22:09 Dose: 800 mg Metoclopramide HCl (Reglan) 10 mg IVPUSH Q6H [facility] Last Admin: 12/08/18 22:11 Dose: 10 mg Modafinil (Provigil) 200 mg PO DAILY [facility] Last Admin: 12/08/18 09:33 Dose: 200 mg Morphine Sulfate (Morphine) 0.5 mg IVPUSH Q4H PRN PRN Reason: Shortness of Breath Rifaximin (Xifaxan) 550 mg PO BID [facility] Last Admin: 12/08/18 22:07 Dose: 550 mg Saccharomyces Boulardii (Florastor) 250 mg PO BID [facility] Last Admin: 12/08/18 22:07 Dose: 250 mg Sodium Chloride (Saline Flush) 10 ml FLUSH ASDIRECTED PRN PRN Reason: Keep Vein Open Last Admin: 12/07/18 10:05 Dose: 10 ml Sodium Chloride (Sodium Chloride 0.9%) 3 ml INH ASDIRECTED PRN PRN Reason: mix with racepinephrine neb Spironolactone (Aldactone) 12.5 mg PO BID [facility] Last Admin: 12/08/18 22:08 Dose: 12.5 mg Discontinued Medications Hydrocodone Bitart/Acetaminophen (Orosi 325-5 Mg) 1 tab PO Q4H PRN PRN Reason: Pain (moderate 4-6) Last Admin: 12/07/18 08:55 Dose: 1 tab Bumetanide (Bumex) 1 mg IVPUSH ONETIME ONE Stop: 12/03/18 16:12 Last Admin: 12/03/18 16:25 Dose: 1 mg Bumetanide (Bumex) 1 mg IVPUSH ONETIME ONE Stop: 12/03/18 21:01 Last Admin: 12/03/18 21:16 Dose: 1 mg Bumetanide (Bumex) 1 mg IVPUSH ONETIME ONE Stop: 12/04/18 13:25 Last Admin: 12/04/18 14:36 Dose: 1 mg Calcium Carbonate/Glycine (Calcium Carbonate) 1,200 mg PO ONETIME ONE Stop: 12/02/18 22:23 Last Admin: 12/02/18 22:42 Dose: 1,200 mg Calcium Carbonate/Glycine (Tums) 1,000 mg PO ONETIME ONE Stop: 12/04/18 21:33 Last Admin: 12/04/18 22:32 Dose: 1,000 mg Calcium Gluconate (Calcium Gluconate) 1 gm IVPUSH ONETIME ONE Stop: 12/03/18 14:10 Last Admin: 12/03/18 14:47 Dose: Not Given Dexamethasone (Dexamethasone) 4 mg IVPUSH Q12H [facility] Last Admin: 12/03/18 05:48 Dose: 4 mg Dexamethasone (Dexamethasone) 4 mg IVPUSH Q12H [facility] Stop: 12/05/18 09:30 Last Admin: 12/05/18 09:04 Dose: 4 mg Dexamethasone (Dexamethasone) 4 mg IVPUSH ONETIME ONE Stop: 12/08/18 17:33 Last Admin: 12/08/18 18:15 Dose: 4 mg Erythromycin (Jed-Tab) 250 mg PO Q8HR [facility] Last Admin: 12/03/18 05:41 Dose: 250 mg Etomidate (Amidate) 30 mg IVPUSH ONETIME ONE Stop: 11/30/18 18:39 Last Admin: 11/30/18 18:52 Dose: 30 mg Famotidine (Pepcid) 20 mg IVPUSH ONETIME ONE Stop: 11/30/18 21:57 Last Admin: 11/30/18 22:26 Dose: 20 mg Furosemide (Lasix) 20 mg IVPUSH NOW ONE Stop: 12/01/18 23:01 Last Admin: 12/01/18 23:16 Dose: 20 mg Furosemide (Lasix) 40 mg PO DAILY [facility] Last Admin: 12/05/18 09:11 Dose: 40 mg Hydrochlorothiazide (Hydrochlorothiazide) 25 mg PO ONETIME ONE Stop: 12/07/18 12:27 Last Admin: 12/07/18 13:05 Dose: 25 mg Hydrochlorothiazide (Hydrochlorothiazide) 12.5 mg PO ONETIME ONE Stop: 12/07/18 21:01 Last Admin: 12/07/18 20:51 Dose: 12.5 mg Sodium Chloride (Normal Saline) 1,000 mls @ 125 mls/hr IV ASDIRECTED [facility] Last Admin: 11/30/18 16:55 Dose: 125 mls/hr Propofol (Diprivan 100 Ml) 100 mls @ 7.348 mls/hr IV TITRATE [facility]; Protocol Last Titration: 12/01/18 11:09 Dose: 0 mcg/kg/min, 0 mls/hr Propofol (Diprivan 100 Ml) Confirm Administered Dose 100 mls @ as directed .ROUTE .STK-MED ONE Stop: 11/30/18 19:02 Last Admin: 11/30/18 19:15 Dose: Not Given Dextrose/Sodium Chloride (Dextrose 5%-Normal Saline) 1,000 mls @ 100 mls/hr IV ASDIRECTED [facility] Last Admin: 12/01/18 09:20 Dose: 100 mls/hr Magnesium Sulfate 4 gm/ Premix 50 mls @ 12.5 mls/hr IV ONETIME ONE Stop: 12/01/18 13:28 Last Admin: 12/01/18 09:50 Dose: 12.5 mls/hr Magnesium Sulfate 4 gm/ Premix 50 mls @ 12.5 mls/hr IV ONETIME ONE Stop: 12/01/18 23:59 Last Admin: 12/01/18 19:58 Dose: 12.5 mls/hr Potassium Chloride/Sodium Chloride (Normal Saline With 20 Meq Kcl) 1,000 mls @ 100 mls/hr IV ASDIRECTED [facility]IR[facility] Last Admin: 12/02/18 01:03 Dose: 100 mls/hr Potassium Chloride/Sodium Chloride (Normal Saline With 20 Meq Kcl) 500 mls @ 500 mls/hr IV ASDIRECTED [facility] Stop: 12/01/18 19:29 Last Admin: 12/01/18 18:47 Dose: 500 mls/hr Piperacillin Sod/Tazobactam (Sod 4.5 gm/ Sodium Chloride) 100 mls @ 25 mls/hr IV Q8H [facility] Last Admin: 12/06/18 01:18 Dose: 25 mls/hr Piperacillin Sod/Tazobactam (Sod 4.5 gm/ Sodium Chloride) 100 mls @ 200 mls/hr IV ONETIME ONE Stop: 12/01/18 19:14 Last Admin: 12/01/18 19:14 Dose: 200 mls/hr Dextrose/Sodium Chloride (Dextrose 5%-Normal Saline) 1,000 mls @ 100 mls/hr IV ASDIRECTED [facility]IR[facility] Last Admin: 12/02/18 05:46 Dose: 100 mls/hr Levofloxacin/Dextrose 750 mg/ (Premix) 150 mls @ 100 mls/hr IV ONETIME ONE Stop: 12/02/18 07:29 Last Admin: 12/02/18 08:46 Dose: Not Given Sodium Chloride (Normal Saline) 500 mls @ 999 mls/hr IV .BOLUS ONE Stop: 12/02/18 05:56 Last Admin: 12/02/18 05:45 Dose: 999 mls/hr Sodium Chloride (Normal Saline) Confirm Administered Dose 500 mls @ as directed .ROUTE .STK-MED ONE Stop: 12/02/18 05:45 Last Admin: 12/02/18 05:50 Dose: Not Given Norepinephrine Bitartrate 4 mg (/ Dextrose/Water) 250 mls @ 7.5 mls/hr IV TITRATE [facility]; Protocol Last Titration: 12/02/18 11:17 Dose: 0 mcg/min, 0 mls/hr Levofloxacin/Dextrose 750 mg/ (Premix) 150 mls @ 100 mls/hr IV ONETIME ONE Stop: 12/02/18 13:29 Last Admin: 12/02/18 12:15 Dose: 100 mls/hr Sodium Chloride (Normal Saline) 2,000 mls @ 999 mls/hr IV ONETIME ONE Stop: 12/02/18 10:42 Last Admin: 12/02/18 09:11 Dose: 999 mls/hr Potassium Chloride/Sodium Chloride (Normal Saline With 20 Meq Kcl) 1,000 mls @ 150 mls/hr IV ASDIRECTED [facility]IR[facility] Last Admin: 12/03/18 08:14 Dose: 150 mls/hr Dextrose/Sodium Chloride (Dextrose 5%-Normal Saline) 1,000 mls @ 150 mls/hr IV ASDIRECTED [facility]IR[facility] Last Admin: 12/02/18 22:32 Dose: 150 mls/hr Sodium Chloride (Normal Saline) 100 mls @ 60 mls/hr IV ASDIRECTED [facility] Last Admin: 12/02/18 14:44 Dose: 60 mls/hr Sodium Chloride (Normal Saline) 1,000 mls @ 999 mls/hr IV ONETIME ONE Stop: 12/02/18 15:18 Last Admin: 12/02/18 15:00 Dose: 999 mls/hr Levofloxacin/Dextrose 750 mg/ (Premix) 150 mls @ 100 mls/hr IV Q24H [facility] Levofloxacin/Dextrose 750 mg/ (Premix) 150 mls @ 100 mls/hr IV Q24H [facility] Last Admin: 12/05/18 15:11 Dose: 100 mls/hr Calcium Gluconate 1 gm/ Sodium (Chloride) 60 mls @ 120 mls/hr IV ONETIME ONE Stop: 12/03/18 15:29 Last Admin: 12/03/18 14:37 Dose: 100 mls/hr Sodium Chloride (Normal Saline) 1,000 mls @ 75 mls/hr IV ASDIRECTED [facility] Last Infusion: 12/04/18 18:14 Dose: 25 mls/hr Sodium Chloride (Normal Saline) 1,000 mls @ 25 mls/hr IV ASDIRECTED [facility] Last Admin: 12/04/18 18:15 Dose: 25 mls/hr Albumin Human (Flexbumin 25%) 12.5 gm in 50 mls @ 100 mls/hr IV ONETIME ONE Stop: 12/07/18 12:56 Last Admin: 12/07/18 13:05 Dose: 100 mls/hr Albumin Human (Flexbumin 25%) 12.5 gm in 50 mls @ 100 mls/hr IV ONETIME ONE Stop: 12/08/18 04:29 Last Admin: 12/08/18 03:03 Dose: 100 mls/hr Insulin Glargine (Lantus) 10 unit SUBCUT BID [facility] Last Admin: 12/07/18 20:50 Dose: 10 units Insulin Glargine (Lantus) 12 unit SUBCUT BID [facility] Insulin Human Lispro (Humalog) 0 unit SUBCUT Q6HR [facility]; Protocol Last Admin: 12/03/18 12:27 Dose: 9 unit Insulin Human Lispro (Humalog) 0 unit SUBCUT QIDACANDBED [facility]; Protocol Last Admin: 12/03/18 17:32 Dose: 9 units Insulin Human Lispro (Humalog) 0 unit SUBCUT Q6HR [facility]; Protocol Last Admin: 12/07/18 23:10 Dose: 1 units Iopamidol (Isovue-370 (76%)) 100 ml IV ONETIME ONE Stop: 12/02/18 07:40 Last Admin: 12/02/18 09:30 Dose: 100 ml Iopamidol (Isovue-370 (76%)) 100 ml IV ONETIME ONE Stop: 12/02/18 14:19 Last Admin: 12/02/18 14:44 Dose: 100 ml Lactulose (Cephulac) 60 gm NGTUBE ONETIME ONE Stop: 11/30/18 19:01 Last Admin: 11/30/18 19:52 Dose: 60 gm Lactulose (Cephulac) 60 gm PO ONETIME ONE Stop: 12/01/18 01:01 Last Admin: 12/01/18 01:00 Dose: 60 gm Lactulose (Cephulac) 45 gm PO Q6H [facility] Last Admin: 12/02/18 09:16 Dose: Not Given Lactulose (Cephulac) 30 gm PO BID [facility] Last Admin: 12/04/18 16:28 Dose: 30 gm Lactulose (Cephulac) 30 gm PO TID [facility] Last Admin: 12/05/18 15:14 Dose: 30 gm Lactulose (Cephulac) 20 gm PO BID [facility] Last Admin: 12/06/18 08:37 Dose: 20 gm Levofloxacin (Levaquin) 750 mg PO Q24H [facility] Last Admin: 12/07/18 10:05 Dose: 750 mg Lorazepam (Ativan) 1 mg IVPUSH Q6H PRN PRN Reason: restlessness Last Admin: 12/07/18 21:33 Dose: 1 mg Methylprednisolone Sodium Succinate (Solu-Medrol) 125 mg IVPUSH Q8H [facility] Stop: 12/04/18 06:01 Last Admin: 12/04/18 05:40 Dose: 125 mg Midazolam HCl (Versed 1 Mg/Ml) 5 mg IVPUSH ONETIME ONE Stop: 11/30/18 19:30 Last Admin: 11/30/18 19:32 Dose: 5 mg Modafinil (Provigil) 200 mg PO DAILY [facility] Stop: 12/04/18 07:30 Last Admin: 12/03/18 08:00 Dose: 200 mg Modafinil (Provigil) 100 mg PO ONETIME ONE Stop: 12/02/18 20:45 Last Admin: 12/02/18 21:10 Dose: 100 mg Modafinil (Provigil) 200 mg PO NOW STA Stop: 12/04/18 13:28 Last Admin: 12/04/18 15:15 Dose: 200 mg Morphine Sulfate (Morphine) 1 mg IVPUSH ONETIME ONE Stop: 12/01/18 11:18 Last Admin: 12/01/18 11:37 Dose: 1 mg Morphine Sulfate (Morphine) 2 mg IVPUSH ONETIME ONE Stop: 12/01/18 16:46 Last Admin: 12/01/18 16:52 Dose: 2 mg Morphine Sulfate (Morphine) 2 mg IVPUSH Q4H PRN PRN Reason: Shortness of Breath Last Admin: 12/04/18 17:06 Dose: 2 mg Morphine Sulfate (Morphine) 1 mg IVPUSH ONETIME ONE Stop: 12/03/18 16:11 Last Admin: 12/03/18 16:24 Dose: 1 mg Morphine Sulfate (Morphine) 1 mg IVPUSH Q4H PRN PRN Reason: Shortness of Breath Last Admin: 12/07/18 20:56 Dose: 1 mg Neostigmine Methylsulfate (Neostigmine Methylsulfate) 0.5 mg IM Q6H [facility] Stop: 12/08/18 07:31 Last Admin: 12/08/18 09:43 Dose: 0.5 mg Racepinephrine (S-2 2.25%) 0.5 ml NEB Q4HRRT PRN PRN Reason: subglottic narrowing Racepinephrine (S-2 2.25%) 0.5 ml NEB TID [facility] Stop: 12/06/18 09:00 Last Admin: 12/05/18 20:23 Dose: 0.5 ml Racepinephrine (S-2 2.25%) 0.5 ml NEB Q4HRRT PRN PRN Reason: choking Last Admin: 12/06/18 10:14 Dose: 0.5 ml Racepinephrine (S-2 2.25%) 0.5 ml NEB ONETIME ONE Stop: 12/04/18 13:41 Last Admin: 12/04/18 13:40 Dose: 0.5 ml Rivaroxaban (Xarelto) 20 mg PO DAILY [facility] Last Admin: 12/05/18 12:37 Dose: Not Given Rivaroxaban (Xarelto) 20 mg PO ONETIME ONE Stop: 12/04/18 21:28 Last Admin: 12/04/18 22:32 Dose: 20 mg Sodium Chloride (Saline Flush) 10 ml FLUSH ONETIME ONE Stop: 12/02/18 07:40 Last Admin: 12/02/18 09:30 Dose: 10 ml Sodium Chloride (Sodium Chloride 0.9%) 0 ml INH TID [facility] Stop: 12/06/18 09:00 Last Admin: 12/06/18 10:15 Dose: 3 ml Sodium Chloride (Sodium Chloride 0.9%) 3 ml INH ASDIRECTED PRN PRN Reason: mix with racepinephrine neb Succinylcholine Chloride (Quelicin) 180 mg IV ONETIME ONE Stop: 11/30/18 18:46 Last Admin: 11/30/18 18:53 Dose: 180 mg - Exam Quality Assessment: Supplemental Oxygen General: Alert, Cooperative, No Acute Distress, Other (no asterixis; he looks very weak and tired) HEENT: Pupils Equal, Pupils Reactive, Mucous Membr. Moist/[place] Neck: Supple Lungs: Decreased Breath Sounds, Crackles Cardiovascular: Regular Rate, Regular Rhythm GI/Abdominal Exam: Non-Tender, No Abnormal Bruit, Distended, Other (tight ). No : Soft (Male) Exam: Other (indwelling perez catheter with scrotal edema) Back Exam: Normal Inspection, Decreased Range of Motion Extremities: Normal Inspection, Normal Range of Motion, Non-Tender, Normal Capillary Refill, Pedal Edema Peripheral Pulses: 1+: Dorsalis Pedis (L), Dorsalis Pedis (R) Skin: Warm, Dry, Intact, Other (jaundice) Neurological: No New Focal Deficit (limited due to generalized weakness). No: Normal Gait Psy/Mental Status: Alert, Normal Affect, Normal Mood - Problem List Review Problem List Initiated/Reviewed/Updated: Yes - My Orders Last 24 Hours: My Active Orders 12/08/18 00:05 Acetaminophen/HYDROcodone [Orosi 325-5 MG] 1 tab PO Q6H PRN Morphine 0.5 mg IVPUSH Q4H PRN 12/08/18 05:05 A1C [GLYCOSYLATED HEMOGLOBIN,HGBA1C] [CHEM] Routine 12/08/18 06:00 hydroCHLOROthiazide 12.5 mg PO BIDDIURETIC 12/08/18 07:00 Insulin Lispro [HumaLOG] 0 unit SUBCUT QIDACANDBED 12/08/18 09:00 Caffeine 200 mg PO DAILY Insulin Glarg,Human.Rec.Analog [LantUS] 10 unit SUBCUT BID 12/08/18 14:41 Patient Status [ADT] Routine 12/08/18 17:14 NG [Gastrointestinal Tube Mgmt] [RC] Q4HR NG [Nasogastric Orogastric Tube Insertion] [OM.PC] Routine 12/08/18 17:15 Consult to Physician [CONS] Routine Rectal Tube Insertion [OM.PC] Routine 12/08/18 17:16 Notify Provider Consults [RC] ASDIRECTED 12/08/18 17:32 LORazepam [Ativan] 0.5 mg IVPUSH Q6H PRN 12/09/18 05:11 CBC WITH AUTO DIFF [HEME] AM CMP [COMPREHENSIVE METABOLIC PN,CMP] [CHEM] AM INR,PT,PROTHROMBIN TIME [COAG] AM MG [MAGNESIUM] [CHEM] AM 12/09/18 09:00 Dexamethasone 4 mg IVPUSH DAILY - Plan Plan:: Assessment/Plan: Acute: Persistent Hepatic Encephalopathy - Acute on Chronic - 2/2 Advanced Liver Disease and Medical Non-compliance - Ammonia level is 167--> now 20; Bilirubin level trended up but now 1.9; 2.9 today - Unsure if he is taking his home meds; reportedly just returned home from a long trip - Resume Home Meds as ordered - Continue Lactulose and Xifaxan; discontinued steroid - Monitor Ammonia level - Avoid NSAIDs - Repeat Head CT scan this AM report reads no acute intra-cranial abnormality - MVI, Folic and Thiamine Supplement when able to swallow Cholestasis, Slightly Up - T. Bilirubin 4.4-->3.4 -->2.5-->1.9-->2.6-->4.0 - Has underlying liver failure - Risk factors: DM2 and Medications - Calculate Maddrey's score in AM - Resume steroid Permissive Hyperglycemia in Type II DM - BS still in the in the 200s; Improved - He have his first meal since admission - Hold home PO meds until mental status improves -> resume as ordered - Accu-check Q6H with ISS coverage - Lantus 10 units subQ BID and Low dose Glucotrol 2.5 mg po BID - A1C 6.3 (improved from 7.4 on 08/01/19) Bibasilar Pneumonia w/ Small Pleural Effusion - CTA report reads parenchymal densities within both lung bases; R>>L - Continue IV Zosyn and Levaquin for pharmacy to dose; discontinue after total of 5 day treatment - IS as directed - Repeat Chest CT 12/05/2018 report reads improved right lower lobe parenchymal density with worsening bilateral patchy areas of alveolar density within both lungs. No mass is definitely appreciated on this exam. Small right sided pleural effusion. -Last dose antibiotic today - Repeat CRX in AM Hypocalcemia, Improved - Ca 7.1--> 6.9-->7.3-->7.1-->8.3 - 2/2 GI loss and NPO status - Replete and monitor Generalized Edema with > 10 lbs Weight Gain - 122lbs on admission; 130lbs today - 2/2 Volume overload - Continue Bumex 0.5 mg IVP BID and low dose HCTZ BID - Albumin infusion due to low albumin state from liver cirrhosis Rectal Bleed - Carries a hx/o Intestinal Varices - Hgb remains stable; will continue to monitor - Continue to avoid anticoagulant Severe Colonic Ileus - CT scan report reads: Gaseous dilatation throughout the colon compatible with colonic ileus - He is has been mostly bedbound, also receiving PRN ativan and morphine - Abdomen more distended than usual - Abdominal x-ray shows severe ileus - Prokinetic agent, continue lactulose, and Xifaxan - Rectal and NGT placement - Dr. Snow consult for further eval Abnormal head CT compare to 11/30/18 -CT obtained in ED 11/13/18 * 1. Mild small vessel ischemic demyelination change. * 2. Questionable diminished density within the cerebellum on both sides, worse on the left side possibly due to additional small vessel ischemic demyelination change but difficult to completely exclude early ischemic infarct. MRI study with diffusion would be helpful to confirm or rule out this possibility. * 3. No acute intracranial hemorrhage or other abnormality is seen. -MRI obtained 11/13/18: * 1. Mild small vessel ischemic demyelination change within the subcortical white matter. * 2. No abnormal signal is seen within the cerebellar hemispheres and prior CT finding most likely represents B Scott artifact. * 3. No acute diffusion abnormalities are seen -CT Abdominal/Pelvis 12/02/2018 * 1. Cirrhotic change within the liver with splenomegaly * 2. Minimal pleural effusion seen around a portion of the liver * 3. Nothing acute is appreciated Resolved: S/p Hypomagnesemia - Magnesium-repace as needed - 2/2 inadequate intake S/P ETT on propofol drip, mild sedation; Nebs scheduled; NGT placed with low intermittent suction. - CXR q AM. HOB>40 degrees. - ABG looks good this AM; will try to extubate him - He is now off propofol drip S/p Subglottic Narrowing S/p Extubation - IV Steroid and Scheduled/PRN Racemic Epinephrine - Repeat CXR shows improved abnormal findings Chronic: Advanced Liver Disease from Long Hx/o ETOH Abuse Hx/o Esophageal Varices S/p TIPS Pancytopenia 2/2 Liver Disease, Platelet and Hgb at baseline Hypoalbuminemia, 2/2 Liver Disease Albumin level at baseline DM2, Accu-check QID with ISS (will increased level to high) Hyperbilirubinemia/Cholestasis, 2/2 Advanced Liver Disease Obesity with BMI of 38 GERD Chronic Back Pain GI bleeds from Intestinal Varices and Hemorrhoids Thrombocytopenia Hepatic encephalopathy Hypothyroidism Eczema Plan: He is more alert and awake today Transfer to [facility] with Tele Continue current treatment Routine AM Labs GI PPx: [employer]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 Also less sedation with pain medications - Patient Instructions Diet: Diabetic Diet Activity: As Tolerated Notify Provider of: Fever, Increased Pain, Nausea and/or Vomiting - Discharge Plan *PRESCRIPTION DRUG MONITORING PROGRAM REVIEWED*: No *COPY OF PRESCRIPTION DRUG MONITORING REPORT IN PATIENT RAVI: No
[2018-12-09] MEDS: Albuterol/Ipratropium 3.0-0.5 MG/3 ML Neb Soln NEB SCH ×3 (06:04→21:52)
[2018-12-09] MEDS: Metoclopramide 10 MG/2 ML SDV IVPUSH SCH ×4 (06:41→22:00)
[2018-12-09] MEDS: Lactulose Soln 10 GM/15 ML 30 ML UD Cup PO SCH ×3 (06:41→21:29)
[2018-12-09] MEDS: Hydrochlorothiazide 12.5 MG Cap PO SCH ×2 (06:42→13:45)
[2018-12-09] MEDS: Insulin Lispro 100 Units/ML 3 ML Vial SUBCUT SCH ×4 (07:05→21:31)
--- NOTE | 2018-12-09 08:00 | CONS ---
CONSULTING PHYSICIAN: Sonido Snow MD DATE OF CONSULTATION: 12/08/2018 HISTORY OF PRESENT ILLNESS: This is a 58-year-old I am asked to see concerning an ileus. He had admitted to the hospital on 11/28. He was brought in by the [facility] with altered mental state. The patient is known alcoholic with cirrhosis and liver failure, and he has been on lactulose and other medications for this. According to the EMS, he has not been taking his medication, and were told at the time they picked him up that the patient was fine in the morning. He slowly became confused. He had earlier this month been in the hospital with ammonia level of 67. The patient was admitted to the ICU intubated on a respirator. He had a Carey placed. His head CT, chest CT, and abdomen other than heart failure and pneumonia was otherwise uninformative. On the examination, on admission, he withdrew to pain, and cranial nerves 3 through 12 were intact. Other medical problems were advanced liver disease, esophageal varices, history of pancytopenia, thrombocytopenia of 47, and hyperbilirubinemia. He was considered a full code. The patient after a period of time was extubated and was then today sent to the floor where he was noted to have a large distention. A flat plate of the abdomen was done showing an ileus, commented by the radiologist on the flat plate to be not too much different from his CT scan evaluation. PAST MEDICAL HISTORY: The patient's past medical history is unobtainable from the patient. REVIEW OF SYSTEMS: Unobtainable. The patient is not coherent. SOCIAL HISTORY: No smoking history that we know of. No drinking history is assumed. PHYSICAL EXAMINATION: GENERAL: Reveals the patient is somnolent. He attempts to make sentences. HEENT: Eyes; some hint of jaundice/icterus. Oral cavity; unchanged. NECK: Supple. LUNGS: Decreased breath sounds in the base. HEART: Tones, regular rate. ABDOMEN: Distended. No tenderness. Quite firm. No bowel sounds noted. No ventral or inguinal hernias noted. EXTREMITIES: Lower extremities grossly normal. NEUROLOGIC: Cranial nerves 3 through 12 difficult to tell. They are intact. No sensorineural deficit, and reflex is decreased. SKIN: Warm and dry. PSYCHIATRIC: Level of consciousness, obtunded. LABORATORY DATA: Shows a potassium of 3.5, sodium is 152, CO2 of 25, BUN is 41, his creatinine clearance is 74, and his glucose is 148. Total bilirubin 4.0, AST is 43, and ALT and alkaline phosphatase are normal. Ammonia is in normal level. ASSESSMENT: Ileus, advanced liver disease with encephalopathy. PLAN: Rectal tube and NG tube, and we will check his TSH. He did pull out his NG tube. This was gently reinserted, and we will check to see if it is in the right position. We will check this with a flat plate of the abdomen before they use it. MMODAL /[id number]
--- NOTE | 2018-12-09 09:18 | PCM.PN ---
- General Info Date of Service: 12/09/18 Admission Dx/Problem (Free Text): Admission Diagnosis/Problem Admission Diagnosis/Problem Cirrhosis of liver Subjective Update: Follow Up Functional Status: Reports: Pain Controlled, Tolerating Diet, Urinating. Denies : New Symptoms - Review of Systems General: Denies: Fever, Chills HEENT: Reports: No Symptoms Pulmonary: Denies: Shortness of Breath Cardiovascular: Denies: Chest Pain, Dyspnea on Exertion, Lightheadedness Gastrointestinal: Reports: Flatus. Denies: Abdominal Pain, Decreased Appetite, Nausea, Vomiting Genitourinary: Reports: No Symptoms Musculoskeletal: Reports: No Symptoms Skin: Reports: Jaundice. Denies: Cyanosis, Mottled, Pallor, Diaphoresis, Bruising Neurological: Reports: Difficulty Walking, Weakness, Gait Disturbance Psychiatric: Denies: Depression, Anxiety, Agitation, Hallucinations - Patient Data Vitals - Most Recent: Last Vital Signs Temp 36.8 C 12/09/18 07:57 Pulse 92 12/09/18 07:57 Resp 20 12/09/18 07:57 BP 133/68 12/09/18 07:57 Pulse Ox 96 12/09/18 07:57 Weight - Most Recent: 127.091 kg I&O - Last 24 Hours: Intake & Output 12/08/18 12/09/18 12/09/18 22:59 06:59 14:59 Intake Total 560 50 600 Output Total 1290 640 200 Balance -730 -590 400 Lab Results Last 24 Hours: Laboratory Results - last 24 hr 12/08/18 12/08/18 12/08/18 Range/Units 06:27 12:47 17:59 WBC (4.23-9.07) K/mm3 RBC (4.63-6.08) M/mm3 Hgb (13.7-17.5) gm/L Hct (40.1-51.0) % MCV (79.0-92.2) fl MCH (25.7-32.2) pg MCHC (32.2-35.5) g/dl RDW Std Deviation (35.1-43.9) fL Plt Count (163-337) K/mm3 MPV (9.4-12.3) fl Neut % (Auto) (34.0-67.9) % Lymph % (Auto) (21.8-53.1) % [place] % (Auto) (5.3-12.2) % Eos % (Auto) (0.8-7.0) Baso % (Auto) (0.1-1.2) % Neut # (Auto) (1.78-5.38) K/mm3 Lymph # (Auto) (1.32-3.57) K/mm3 [place] # (Auto) (0.30-0.82) K/mm3 Eos # (Auto) (0.04-0.54) K/mm3 Baso # (Auto) (0.01-0.08) K/mm3 Manual Slide Review PT (9.5-12.1) SECONDS INR Sodium (136-145) mEq/L Potassium (3.5-5.1) mEq/L Chloride (98-107) mEq/L Carbon Dioxide (21-32) mEq/L Anion Gap (5-15) BUN (7-18) mg/dL Creatinine (0.7-1.3) mg/dL Est Cr Clr Drug Dosing mL/min Estimated GFR (MDRD) (>60) mL/min BUN/Creatinine Ratio (14-18) Glucose (74-106) mg/dL POC Glucose 148 H 124 H 138 H (70-105) mg/dL Calcium (8.5-10.1) mg/dL Magnesium (1.8-2.4) mg/dl Total Bilirubin (0.2-1.0) mg/dL AST (15-37) U/L ALT (16-63) U/L Alkaline Phosphatase (46-116) U/L Total Protein (6.4-8.2) g/dl Albumin (3.4-5.0) g/dl Globulin gm/dL Albumin/Globulin Ratio (1-2) TSH 3rd Generation (0.358-3.74) uIU/mL 12/08/18 12/09/18 12/09/18 Range/Units 21:28 06:00 06:00 WBC 8.00 (4.23-9.07) K/mm3 RBC 3.12 L (4.63-6.08) M/mm3 Hgb 10.3 L (13.7-17.5) gm/L Hct 31.1 L (40.1-51.0) % MCV 99.7 H (79.0-92.2) fl MCH 33.0 H (25.7-32.2) pg MCHC 33.1 (32.2-35.5) g/dl RDW Std Deviation 59.9 H (35.1-43.9) fL Plt Count 36 L (163-337) K/mm3 MPV 10.3 (9.4-12.3) fl Neut % (Auto) 88.5 H (34.0-67.9) % Lymph % (Auto) 6.6 L (21.8-53.1) % [place] % (Auto) 4.6 L (5.3-12.2) % Eos % (Auto) 0 L (0.8-7.0) Baso % (Auto) 0.0 L (0.1-1.2) % Neut # (Auto) 7.08 H (1.78-5.38) K/mm3 Lymph # (Auto) 0.53 L (1.32-3.57) K/mm3 [place] # (Auto) 0.37 (0.30-0.82) K/mm3 Eos # (Auto) 0.00 L (0.04-0.54) K/mm3 Baso # (Auto) 0.00 L (0.01-0.08) K/mm3 Manual Slide Review Abnormal smear PT (9.5-12.1) SECONDS INR Sodium 152 H (136-145) mEq/L Potassium 3.5 (3.5-5.1) mEq/L Chloride 117 H (98-107) mEq/L Carbon Dioxide 29 (21-32) mEq/L Anion Gap 9.5 (5-15) BUN 41 H (7-18) mg/dL Creatinine 1.1 (0.7-1.3) mg/dL Est Cr Clr Drug Dosing 74.66 mL/min Estimated GFR (MDRD) > 60 (>60) mL/min BUN/Creatinine Ratio 37.3 H (14-18) Glucose 146 H (74-106) mg/dL POC Glucose 161 H (70-105) mg/dL Calcium 9.0 (8.5-10.1) mg/dL Magnesium 2.2 (1.8-2.4) mg/dl Total Bilirubin 3.5 H (0.2-1.0) mg/dL AST 44 H (15-37) U/L ALT 38 (16-63) U/L Alkaline Phosphatase 83 (46-116) U/L Total Protein 5.7 L (6.4-8.2) g/dl Albumin 1.8 L (3.4-5.0) g/dl Globulin 3.9 gm/dL Albumin/Globulin Ratio 0.5 L (1-2) TSH 3rd Generation (0.358-3.74) uIU/mL 12/09/18 12/09/18 12/09/18 Range/Units 06:00 06:00 06:45 WBC (4.23-9.07) K/mm3 RBC (4.63-6.08) M/mm3 Hgb (13.7-17.5) gm/L Hct (40.1-51.0) % MCV (79.0-92.2) fl MCH (25.7-32.2) pg MCHC (32.2-35.5) g/dl RDW Std Deviation (35.1-43.9) fL Plt Count (163-337) K/mm3 MPV (9.4-12.3) fl Neut % (Auto) (34.0-67.9) % Lymph % (Auto) (21.8-53.1) % [place] % (Auto) (5.3-12.2) % Eos % (Auto) (0.8-7.0) Baso % (Auto) (0.1-1.2) % Neut # (Auto) (1.78-5.38) K/mm3 Lymph # (Auto) (1.32-3.57) K/mm3 [place] # (Auto) (0.30-0.82) K/mm3 Eos # (Auto) (0.04-0.54) K/mm3 Baso # (Auto) (0.01-0.08) K/mm3 Manual Slide Review PT 18.8 H (9.5-12.1) SECONDS INR 1.74 Sodium (136-145) mEq/L Potassium (3.5-5.1) mEq/L Chloride (98-107) mEq/L Carbon Dioxide (21-32) mEq/L Anion Gap (5-15) BUN (7-18) mg/dL Creatinine (0.7-1.3) mg/dL Est Cr Clr Drug Dosing mL/min Estimated GFR (MDRD) (>60) mL/min BUN/Creatinine Ratio (14-18) Glucose (74-106) mg/dL POC Glucose 145 H (70-105) mg/dL Calcium (8.5-10.1) mg/dL Magnesium (1.8-2.4) mg/dl Total Bilirubin (0.2-1.0) mg/dL AST (15-37) U/L ALT (16-63) U/L Alkaline Phosphatase (46-116) U/L Total Protein (6.4-8.2) g/dl Albumin (3.4-5.0) g/dl Globulin gm/dL Albumin/Globulin Ratio (1-2) TSH 3rd Generation 4.627 H (0.358-3.74) uIU/mL Med Orders - Current: Current Medications Hydrocodone Bitart/Acetaminophen ([place] 325-5 Mg) 1 tab PO Q6H PRN PRN Reason: Pain (moderate 4-6) Last Admin: 12/08/18 11:37 Dose: 1 tab Al Hydroxide/Mg Hydroxide (Mag-Al Plus) 30 ml PO Q4H PRN PRN Reason: Heartburn Last Admin: 12/07/18 20:54 Dose: 30 ml Albuterol/Ipratropium (Duoneb 3.0-0.5 Mg/3 Ml) 3 ml NEB Q8HRRT [facility] Last Admin: 12/09/18 06:04 Dose: 3 ml Albuterol/Ipratropium (Duoneb 3.0-0.5 Mg/3 Ml) 3 ml NEB Q4HRRT PRN PRN Reason: Wheezing Bumetanide (Bumex) 0.5 mg IVPUSH BID [facility] Last Admin: 12/08/18 22:09 Dose: 0.5 mg Caffeine (Caffeine) 200 mg PO DAILY [facility] Stop: 12/09/18 12:30 Last Admin: 12/08/18 09:33 Dose: 200 mg Dexamethasone (Dexamethasone) 4 mg IVPUSH DAILY [facility] Famotidine (Pepcid) 20 mg IVPUSH BID [facility] Last Admin: 12/08/18 22:10 Dose: 20 mg Glipizide (Glucotrol Xl) 2.5 mg PO BID [facility] Last Admin: 12/08/18 22:07 Dose: 2.5 mg Hydrochlorothiazide (Hydrochlorothiazide) 12.5 mg PO BIDDIURETIC [facility] Last Admin: 12/09/18 06:42 Dose: 12.5 mg Insulin Glargine (Lantus) 10 unit SUBCUT BID [facility] Last Admin: 12/08/18 22:14 Dose: 10 units Insulin Human Lispro (Humalog) 0 unit SUBCUT QIDACANDBED [facility]; Protocol Last Admin: 12/09/18 07:05 Dose: Not Given Lactulose (Cephulac) 20 gm PO TID@0700,1400,2100 [facility] Last Admin: 12/09/18 06:41 Dose: 20 gm Lorazepam (Ativan) 0.5 mg IVPUSH Q6H PRN PRN Reason: restlessness Last Admin: 12/09/18 00:17 Dose: 0.5 mg Magnesium Oxide (Magnesium Oxide) 800 mg PO BID [facility] Last Admin: 12/08/18 22:09 Dose: 800 mg Metoclopramide HCl (Reglan) 10 mg IVPUSH Q6H [facility] Last Admin: 12/09/18 06:41 Dose: 10 mg Modafinil (Provigil) 200 mg PO DAILY [facility] Last Admin: 12/08/18 09:33 Dose: 200 mg Morphine Sulfate (Morphine) 0.5 mg IVPUSH Q4H PRN PRN Reason: Shortness of Breath Rifaximin (Xifaxan) 550 mg PO BID [facility] Last Admin: 12/08/18 22:07 Dose: 550 mg Saccharomyces Boulardii (Florastor) 250 mg PO BID [facility] Last Admin: 12/08/18 22:07 Dose: 250 mg Sodium Chloride (Saline Flush) 10 ml FLUSH ASDIRECTED PRN PRN Reason: Keep Vein Open Last Admin: 12/07/18 10:05 Dose: 10 ml Sodium Chloride (Sodium Chloride 0.9%) 3 ml INH ASDIRECTED PRN PRN Reason: mix with racepinephrine neb Spironolactone (Aldactone) 12.5 mg PO BID [facility] Last Admin: 12/08/18 22:08 Dose: 12.5 mg Discontinued Medications Hydrocodone Bitart/Acetaminophen ([place] 325-5 Mg) 1 tab PO Q4H PRN PRN Reason: Pain (moderate 4-6) Last Admin: 12/07/18 08:55 Dose: 1 tab Bumetanide (Bumex) 1 mg IVPUSH ONETIME ONE Stop: 12/03/18 16:12 Last Admin: 12/03/18 16:25 Dose: 1 mg Bumetanide (Bumex) 1 mg IVPUSH ONETIME ONE Stop: 12/03/18 21:01 Last Admin: 12/03/18 21:16 Dose: 1 mg Bumetanide (Bumex) 1 mg IVPUSH ONETIME ONE Stop: 12/04/18 13:25 Last Admin: 12/04/18 14:36 Dose: 1 mg Calcium Carbonate/Glycine (Calcium Carbonate) 1,200 mg PO ONETIME ONE Stop: 12/02/18 22:23 Last Admin: 12/02/18 22:42 Dose: 1,200 mg Calcium Carbonate/Glycine (Tums) 1,000 mg PO ONETIME ONE Stop: 12/04/18 21:33 Last Admin: 12/04/18 22:32 Dose: 1,000 mg Calcium Gluconate (Calcium Gluconate) 1 gm IVPUSH ONETIME ONE Stop: 12/03/18 14:10 Last Admin: 12/03/18 14:47 Dose: Not Given Dexamethasone (Dexamethasone) 4 mg IVPUSH Q12H [facility] Last Admin: 12/03/18 05:48 Dose: 4 mg Dexamethasone (Dexamethasone) 4 mg IVPUSH Q12H [facility] Stop: 12/05/18 09:30 Last Admin: 12/05/18 09:04 Dose: 4 mg Dexamethasone (Dexamethasone) 4 mg IVPUSH ONETIME ONE Stop: 12/08/18 17:33 Last Admin: 12/08/18 18:15 Dose: 4 mg Erythromycin (Jed-Tab) 250 mg PO Q8HR [facility] Last Admin: 12/03/18 05:41 Dose: 250 mg Etomidate (Amidate) 30 mg IVPUSH ONETIME ONE Stop: 11/30/18 18:39 Last Admin: 11/30/18 18:52 Dose: 30 mg Famotidine (Pepcid) 20 mg IVPUSH ONETIME ONE Stop: 11/30/18 21:57 Last Admin: 11/30/18 22:26 Dose: 20 mg Furosemide (Lasix) 20 mg IVPUSH NOW ONE Stop: 12/01/18 23:01 Last Admin: 12/01/18 23:16 Dose: 20 mg Furosemide (Lasix) 40 mg PO DAILY DHIRAJ Last Admin: 12/05/18 09:11 Dose: 40 mg Hydrochlorothiazide (Hydrochlorothiazide) 25 mg PO ONETIME ONE Stop: 12/07/18 12:27 Last Admin: 12/07/18 13:05 Dose: 25 mg Hydrochlorothiazide (Hydrochlorothiazide) 12.5 mg PO ONETIME ONE Stop: 12/07/18 21:01 Last Admin: 12/07/18 20:51 Dose: 12.5 mg Sodium Chloride (Normal Saline) 1,000 mls @ 125 mls/hr IV ASDIRECTED DHIRAJ Last Admin: 11/30/18 16:55 Dose: 125 mls/hr Propofol (Diprivan 100 Ml) 100 mls @ 7.348 mls/hr IV TITRATE DHIRAJ; Protocol Last Titration: 12/01/18 11:09 Dose: 0 mcg/kg/min, 0 mls/hr Propofol (Diprivan 100 Ml) Confirm Administered Dose 100 mls @ as directed .ROUTE .STK-MED ONE Stop: 11/30/18 19:02 Last Admin: 11/30/18 19:15 Dose: Not Given Dextrose/Sodium Chloride (Dextrose 5%-Normal Saline) 1,000 mls @ 100 mls/hr IV ASDIRECTED DHIRAJ Last Admin: 12/01/18 09:20 Dose: 100 mls/hr Magnesium Sulfate 4 gm/ Premix 50 mls @ 12.5 mls/hr IV ONETIME ONE Stop: 12/01/18 13:28 Last Admin: 12/01/18 09:50 Dose: 12.5 mls/hr Magnesium Sulfate 4 gm/ Premix 50 mls @ 12.5 mls/hr IV ONETIME ONE Stop: 12/01/18 23:59 Last Admin: 12/01/18 19:58 Dose: 12.5 mls/hr Potassium Chloride/Sodium Chloride (Normal Saline With 20 Meq Kcl) 1,000 mls @ 100 mls/hr IV ASDIRECTED DHIRAJ Last Admin: 12/02/18 01:03 Dose: 100 mls/hr Potassium Chloride/Sodium Chloride (Normal Saline With 20 Meq Kcl) 500 mls @ 500 mls/hr IV ASDIRECTED DHIRAJ Stop: 12/01/18 19:29 Last Admin: 12/01/18 18:47 Dose: 500 mls/hr Piperacillin Sod/Tazobactam (Sod 4.5 gm/ Sodium Chloride) 100 mls @ 25 mls/hr IV Q8H DHIRAJ Last Admin: 12/06/18 01:18 Dose: 25 mls/hr Piperacillin Sod/Tazobactam (Sod 4.5 gm/ Sodium Chloride) 100 mls @ 200 mls/hr IV ONETIME ONE Stop: 12/01/18 19:14 Last Admin: 12/01/18 19:14 Dose: 200 mls/hr Dextrose/Sodium Chloride (Dextrose 5%-Normal Saline) 1,000 mls @ 100 mls/hr IV ASDIRECTED DHIRAJ Last Admin: 12/02/18 05:46 Dose: 100 mls/hr Levofloxacin/Dextrose 750 mg/ (Premix) 150 mls @ 100 mls/hr IV ONETIME ONE Stop: 12/02/18 07:29 Last Admin: 12/02/18 08:46 Dose: Not Given Sodium Chloride (Normal Saline) 500 mls @ 999 mls/hr IV .BOLUS ONE Stop: 12/02/18 05:56 Last Admin: 12/02/18 05:45 Dose: 999 mls/hr Sodium Chloride (Normal Saline) Confirm Administered Dose 500 mls @ as directed .ROUTE .STK-MED ONE Stop: 12/02/18 05:45 Last Admin: 12/02/18 05:50 Dose: Not Given Norepinephrine Bitartrate 4 mg (/ Dextrose/Water) 250 mls @ 7.5 mls/hr IV TITRATE DHIRAJ; Protocol Last Titration: 12/02/18 11:17 Dose: 0 mcg/min, 0 mls/hr Levofloxacin/Dextrose 750 mg/ (Premix) 150 mls @ 100 mls/hr IV ONETIME ONE Stop: 12/02/18 13:29 Last Admin: 12/02/18 12:15 Dose: 100 mls/hr Sodium Chloride (Normal Saline) 2,000 mls @ 999 mls/hr IV ONETIME ONE Stop: 12/02/18 10:42 Last Admin: 12/02/18 09:11 Dose: 999 mls/hr Potassium Chloride/Sodium Chloride (Normal Saline With 20 Meq Kcl) 1,000 mls @ 150 mls/hr IV ASDIRECTED [facility] Last Admin: 12/03/18 08:14 Dose: 150 mls/hr Dextrose/Sodium Chloride (Dextrose 5%-Normal Saline) 1,000 mls @ 150 mls/hr IV ASDIRECTED [facility] Last Admin: 12/02/18 22:32 Dose: 150 mls/hr Sodium Chloride (Normal Saline) 100 mls @ 60 mls/hr IV ASDIRECTED [facility] Last Admin: 12/02/18 14:44 Dose: 60 mls/hr Sodium Chloride (Normal Saline) 1,000 mls @ 999 mls/hr IV ONETIME ONE Stop: 12/02/18 15:18 Last Admin: 12/02/18 15:00 Dose: 999 mls/hr Levofloxacin/Dextrose 750 mg/ (Premix) 150 mls @ 100 mls/hr IV Q24H DHIRAJ Levofloxacin/Dextrose 750 mg/ (Premix) 150 mls @ 100 mls/hr IV Q24H DHIRAJ Last Admin: 12/05/18 15:11 Dose: 100 mls/hr Calcium Gluconate 1 gm/ Sodium (Chloride) 60 mls @ 120 mls/hr IV ONETIME ONE Stop: 12/03/18 15:29 Last Admin: 12/03/18 14:37 Dose: 100 mls/hr Sodium Chloride (Normal Saline) 1,000 mls @ 75 mls/hr IV ASDIRECTED [facility] Last Infusion: 12/04/18 18:14 Dose: 25 mls/hr Sodium Chloride (Normal Saline) 1,000 mls @ 25 mls/hr IV ASDIRECTED [facility] Last Admin: 12/04/18 18:15 Dose: 25 mls/hr Albumin Human (Flexbumin 25%) 12.5 gm in 50 mls @ 100 mls/hr IV ONETIME ONE Stop: 12/07/18 12:56 Last Admin: 12/07/18 13:05 Dose: 100 mls/hr Albumin Human (Flexbumin 25%) 12.5 gm in 50 mls @ 100 mls/hr IV ONETIME ONE Stop: 12/08/18 04:29 Last Admin: 12/08/18 03:03 Dose: 100 mls/hr Insulin Glargine (Lantus) 10 unit SUBCUT BID [facility] Last Admin: 12/07/18 20:50 Dose: 10 units Insulin Glargine (Lantus) 12 unit SUBCUT BID [facility] Insulin Human Lispro (Humalog) 0 unit SUBCUT Q6HR [facility]; Protocol Last Admin: 12/03/18 12:27 Dose: 9 unit Insulin Human Lispro (Humalog) 0 unit SUBCUT QIDACANDBED [facility]; Protocol Last Admin: 12/03/18 17:32 Dose: 9 units Insulin Human Lispro (Humalog) 0 unit SUBCUT Q6HR [facility]; Protocol Last Admin: 12/07/18 23:10 Dose: 1 units Iopamidol (Isovue-370 (76%)) 100 ml IV ONETIME ONE Stop: 12/02/18 07:40 Last Admin: 12/02/18 09:30 Dose: 100 ml Iopamidol (Isovue-370 (76%)) 100 ml IV ONETIME ONE Stop: 12/02/18 14:19 Last Admin: 12/02/18 14:44 Dose: 100 ml Lactulose (Cephulac) 60 gm NGTUBE ONETIME ONE Stop: 11/30/18 19:01 Last Admin: 11/30/18 19:52 Dose: 60 gm Lactulose (Cephulac) 60 gm PO ONETIME ONE Stop: 12/01/18 01:01 Last Admin: 12/01/18 01:00 Dose: 60 gm Lactulose (Cephulac) 45 gm PO Q6H [facility] Last Admin: 12/02/18 09:16 Dose: Not Given Lactulose (Cephulac) 30 gm PO BID [facility] Last Admin: 12/04/18 16:28 Dose: 30 gm Lactulose (Cephulac) 30 gm PO TID [facility] Last Admin: 12/05/18 15:14 Dose: 30 gm Lactulose (Cephulac) 20 gm PO BID [facility] Last Admin: 12/06/18 08:37 Dose: 20 gm Levofloxacin (Levaquin) 750 mg PO Q24H [facility] Last Admin: 12/07/18 10:05 Dose: 750 mg Lorazepam (Ativan) 1 mg IVPUSH Q6H PRN PRN Reason: restlessness Last Admin: 12/07/18 21:33 Dose: 1 mg Methylprednisolone Sodium Succinate (Solu-Medrol) 125 mg IVPUSH Q8H DHIRAJ Stop: 12/04/18 06:01 Last Admin: 12/04/18 05:40 Dose: 125 mg Midazolam HCl (Versed 1 Mg/Ml) 5 mg IVPUSH ONETIME ONE Stop: 11/30/18 19:30 Last Admin: 11/30/18 19:32 Dose: 5 mg Modafinil (Provigil) 200 mg PO DAILY DHIRAJ Stop: 12/04/18 07:30 Last Admin: 12/03/18 08:00 Dose: 200 mg Modafinil (Provigil) 100 mg PO ONETIME ONE Stop: 12/02/18 20:45 Last Admin: 12/02/18 21:10 Dose: 100 mg Modafinil (Provigil) 200 mg PO NOW STA Stop: 12/04/18 13:28 Last Admin: 12/04/18 15:15 Dose: 200 mg Morphine Sulfate (Morphine) 1 mg IVPUSH ONETIME ONE Stop: 12/01/18 11:18 Last Admin: 12/01/18 11:37 Dose: 1 mg Morphine Sulfate (Morphine) 2 mg IVPUSH ONETIME ONE Stop: 12/01/18 16:46 Last Admin: 12/01/18 16:52 Dose: 2 mg Morphine Sulfate (Morphine) 2 mg IVPUSH Q4H PRN PRN Reason: Shortness of Breath Last Admin: 12/04/18 17:06 Dose: 2 mg Morphine Sulfate (Morphine) 1 mg IVPUSH ONETIME ONE Stop: 12/03/18 16:11 Last Admin: 12/03/18 16:24 Dose: 1 mg Morphine Sulfate (Morphine) 1 mg IVPUSH Q4H PRN PRN Reason: Shortness of Breath Last Admin: 12/07/18 20:56 Dose: 1 mg Neostigmine Methylsulfate (Neostigmine Methylsulfate) 0.5 mg IM Q6H [facility] Stop: 12/08/18 07:31 Last Admin: 12/08/18 09:43 Dose: 0.5 mg Racepinephrine (S-2 2.25%) 0.5 ml NEB Q4HRRT PRN PRN Reason: subglottic narrowing Racepinephrine (S-2 2.25%) 0.5 ml NEB TID DHIRAJ Stop: 12/06/18 09:00 Last Admin: 12/05/18 20:23 Dose: 0.5 ml Racepinephrine (S-2 2.25%) 0.5 ml NEB Q4HRRT PRN PRN Reason: choking Last Admin: 12/06/18 10:14 Dose: 0.5 ml Racepinephrine (S-2 2.25%) 0.5 ml NEB ONETIME ONE Stop: 12/04/18 13:41 Last Admin: 12/04/18 13:40 Dose: 0.5 ml Rivaroxaban (Xarelto) 20 mg PO DAILY [facility] Last Admin: 12/05/18 12:37 Dose: Not Given Rivaroxaban (Xarelto) 20 mg PO ONETIME ONE Stop: 12/04/18 21:28 Last Admin: 12/04/18 22:32 Dose: 20 mg Sodium Chloride (Saline Flush) 10 ml FLUSH ONETIME ONE Stop: 12/02/18 07:40 Last Admin: 12/02/18 09:30 Dose: 10 ml Sodium Chloride (Sodium Chloride 0.9%) 0 ml INH TID DHIRAJ Stop: 12/06/18 09:00 Last Admin: 12/06/18 10:15 Dose: 3 ml Sodium Chloride (Sodium Chloride 0.9%) 3 ml INH ASDIRECTED PRN PRN Reason: mix with racepinephrine neb Succinylcholine Chloride (Quelicin) 180 mg IV ONETIME ONE Stop: 11/30/18 18:46 Last Admin: 11/30/18 18:53 Dose: 180 mg - Exam General: Alert, Cooperative, No Acute Distress, Other (no asterixis) HEENT: Pupils Equal, Pupils Reactive, Mucous Membr. Moist/[place] Neck: Supple Lungs: Normal Respiratory Effort, Decreased Breath Sounds, Rhonchi Cardiovascular: Regular Rate, Regular Rhythm GI/Abdominal Exam: Soft, Non-Tender, No Mass, Distended, Other (tight). No: No Abnormal Bruit, Guarding, Rigid, Rebound (Male) Exam: Other (indwelling perez catheter with scrotal edema) Back Exam: Normal Inspection, Decreased Range of Motion Extremities: Normal Inspection, Normal Range of Motion, Non-Tender, Pedal Edema , Slow Capillary Refill Peripheral Pulses: 0: Dorsalis Pedis (L), Dorsalis Pedis (R) Skin: Warm, Dry, Intact Neurological: No New Focal Deficit (limited due to generalized weakness). No: Normal Gait Psy/Mental Status: Alert, Normal Mood. No: Normal Affect - Problem List Review Problem List Initiated/Reviewed/Updated: Yes - My Orders Last 24 Hours: My Active Orders 12/08/18 09:00 Caffeine 200 mg PO DAILY Insulin Glarg,Human.Rec.Analog [LantUS] 10 unit SUBCUT BID 12/08/18 14:41 Patient Status [ADT] Routine 12/08/18 17:14 NG [Gastrointestinal Tube Mgmt] [RC] Q4HR NG [Nasogastric Orogastric Tube Insertion] [OM.PC] Routine 12/08/18 17:15 Consult to Physician [CONS] Routine Rectal Tube Insertion [OM.PC] Routine 12/08/18 17:16 Notify Provider Consults [RC] ASDIRECTED 12/08/18 17:32 LORazepam [Ativan] 0.5 mg IVPUSH Q6H PRN 12/09/18 09:00 Dexamethasone 4 mg IVPUSH DAILY 12/10/18 05:11 INR,PT,PROTHROMBIN TIME [COAG] AM 12/11/18 05:11 INR,PT,PROTHROMBIN TIME [COAG] AM - Plan Plan:: Assessment/Plan: Acute: Persistent Hepatic Encephalopathy - Acute on Chronic - 2/2 Advanced Liver Disease and Medical Non-compliance - Ammonia level is 167--> now 20; Bilirubin level trended up but now 1.9; 2.9 today - Unsure if he is taking his home meds; reportedly just returned home from a long trip - Resume Home Meds as ordered - Continue Lactulose and Xifaxan; discontinued steroid - Monitor Ammonia level - Avoid NSAIDs - Repeat Head CT scan this AM report reads no acute intra-cranial abnormality - MVI, Folic and Thiamine Supplement when able to swallow Cholestasis, Slightly Up - T. Bilirubin 4.4-->3.4 -->2.5-->1.9-->2.6-->4.0-->3.5 - Has underlying liver failure - Risk factors: DM2 and Medications - Calculate Maddrey's score in AM - Resume steroid Permissive Hyperglycemia in Type II DM - BS still in the in the 200s; Improved - He have his first meal since admission - Hold home PO meds until mental status improves -> resume as ordered - Accu-check Q6H with ISS coverage - Lantus 10 units subQ BID and Low dose Glucotrol 2.5 mg po BID - A1C 6.3 (improved from 7.4 on 08/01/19) Bibasilar Pneumonia w/ Small Pleural Effusion - CTA report reads parenchymal densities within both lung bases; R>>L - Continue IV Zosyn and Levaquin for pharmacy to dose; discontinue after total of 5 day treatment - IS as directed - Repeat Chest CT 12/05/2018 report reads improved right lower lobe parenchymal density with worsening bilateral patchy areas of alveolar density within both lungs. No mass is definitely appreciated on this exam. Small right sided pleural effusion. -Last dose antibiotic today - Repeat CRX in AM Generalized Edema with > 10 lbs Weight Gain - 122lbs on admission; 130lbs today - 2/2 Volume overload - Continue Bumex 0.5 mg IVP BID and low dose HCTZ BID - Albumin infusion due to low albumin state from liver cirrhosis Rectal Bleed - Carries a hx/o Intestinal Varices - Hgb remains stable; will continue to monitor - Continue to avoid anticoagulant Severe Colonic Ileus - CT scan report reads: Gaseous dilatation throughout the colon compatible with colonic ileus - He is has been mostly bedbound, also receiving PRN ativan and morphine - Abdomen more distended than usual - Abdominal x-ray shows severe ileus - Prokinetic agent, continue lactulose, and Xifaxan - Rectal and NGT placement - Dr. Snow consult for further eval Abnormal head CT compare to 11/30/18 -CT obtained in ED 11/13/18 * 1. Mild small vessel ischemic demyelination change. * 2. Questionable diminished density within the cerebellum on both sides, worse on the left side possibly due to additional small vessel ischemic demyelination change but difficult to completely exclude early ischemic infarct. MRI study with diffusion would be helpful to confirm or rule out this possibility. * 3. No acute intracranial hemorrhage or other abnormality is seen. -MRI obtained 11/13/18: * 1. Mild small vessel ischemic demyelination change within the subcortical white matter. * 2. No abnormal signal is seen within the cerebellar hemispheres and prior CT finding most likely represents B Scott artifact. * 3. No acute diffusion abnormalities are seen -CT Abdominal/Pelvis 12/02/2018 * 1. Cirrhotic change within the liver with splenomegaly * 2. Minimal pleural effusion seen around a portion of the liver * 3. Nothing acute is appreciated Resolved: S/p Hypomagnesemia - Magnesium-repace as needed - 2/2 inadequate intake S/P ETT on propofol drip, mild sedation; Nebs scheduled; NGT placed with low intermittent suction. - CXR q AM. HOB>40 degrees. - ABG looks good this AM; will try to extubate him - He is now off propofol drip S/p Subglottic Narrowing S/p Extubation - IV Steroid and Scheduled/PRN Racemic Epinephrine - Repeat CXR shows improved abnormal findings S/p Hypocalcemia - Ca 7.1--> 6.9-->7.3-->7.1-->8.3-->9.0 - 2/2 GI loss and NPO status - Replete and monitor Chronic: Advanced Liver Disease from Long Hx/o ETOH Abuse Hx/o Esophageal Varices S/p TIPS Pancytopenia 2/2 Liver Disease, Platelet and Hgb at baseline Hypoalbuminemia, 2/2 Liver Disease Albumin level at baseline DM2, Accu-check QID with ISS (will increased level to high) Hyperbilirubinemia/Cholestasis, 2/2 Advanced Liver Disease Obesity with BMI of 38 GERD Chronic Back Pain GI bleeds from Intestinal Varices and Hemorrhoids Thrombocytopenia Hepatic encephalopathy Hypothyroidism Eczema Plan: He is about the same as yesterday Continue current treatment Routine AM Labs GI PPx: 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 Also less sedation with pain medications Spoke to his brother today and informed him about his overall prognosis which appears to be poor at this point. Offered to transfer Kaden to [place] but his brother would like to keep here. We re-addressed his code status but he would like to keep it as is. - Patient Instructions Diet: Diabetic Diet Activity: As Tolerated Notify Provider of: Fever, Increased Pain, Nausea and/or Vomiting - Discharge Plan *PRESCRIPTION DRUG MONITORING PROGRAM REVIEWED*: No *COPY OF PRESCRIPTION DRUG MONITORING REPORT IN PATIENT RAVI: No
[2018-12-09] MEDS: Famotidine 20 MG/2 ML SDV IVPUSH SCH (09:41)
[2018-12-09] MEDS: Bumetanide 1 MG/4 ML MDV IVPUSH SCH ×2 (09:41→21:30)
[2018-12-09] MEDS: Dexamethasone 4 MG/ML SDV IVPUSH SCH (09:41)
[2018-12-09] MEDS: Insulin Glarg,Human.Rec.Analog 100 UNIT/ML ML SUBCUT SCH ×2 (09:54→21:29)
[2018-12-09] MEDS: Saccharomyces Boulardii (Probiotic) 250 MG Cap PO SCH ×2 (09:57→21:34)
[2018-12-09] MEDS: Rifaximin 550 MG Tab PO SCH ×2 (09:57→21:33)
[2018-12-09] MEDS: Spironolactone 25 MG Tab PO SCH ×2 (09:57→21:34)
[2018-12-09] MEDS: glipiZIDE 2.5 MG Tab.ER PO SCH ×2 (09:58→21:36)
[2018-12-09] MEDS: Magnesium Oxide 400 MG Tab PO SCH ×2 (09:58→21:33)
[2018-12-09 10:01] LABS: HEMOGLOBIN A1C 5.9 % (4.50-6.20)
[2018-12-09] MEDS: Caffeine 200 MG Tab PO SCH (11:55)
[2018-12-09] MEDS: Modafinil 200 MG Tab PO SCH (11:55)
[2018-12-09] MEDS: Acetaminophen/HYDROcodone 325-5 MG Tab PO PRN (17:50)
--- NOTE | 2018-12-09 20:15 | PCM.CONSN ---
- General Info Date of Service: 12/09/18 - Review of Systems Gastrointestinal: Reports: Other (destented abdomen but pt is hunger ) Neurological: Reports: Confusion - Patient Data Vitals - Most Recent: Last Vital Signs Temp 98.6 F 12/09/18 16:15 Pulse 94 12/09/18 16:15 Resp 20 12/09/18 16:15 BP 121/83 12/09/18 16:15 Pulse Ox 90 L 12/09/18 18:54 Weight - Most Recent: 127.091 kg I&O - Last 24 Hours: Intake & Output 12/09/18 12/09/18 12/09/18 07:59 15:59 23:59 Intake Total 50 1000 500 Output Total 640 420 175 Balance -590 580 325 Lab Results Last 24 Hours: Laboratory Results - last 24 hr 12/08/18 12/08/18 12/09/18 Range/Units 05:05 21:28 06:00 WBC (4.23-9.07) K/mm3 RBC (4.63-6.08) M/mm3 Hgb (13.7-17.5) gm/L Hct (40.1-51.0) % MCV (79.0-92.2) fl MCH (25.7-32.2) pg MCHC (32.2-35.5) g/dl RDW Std Deviation (35.1-43.9) fL Plt Count (163-337) K/mm3 MPV (9.4-12.3) fl Neut % (Auto) (34.0-67.9) % Lymph % (Auto) (21.8-53.1) % [place] % (Auto) (5.3-12.2) % Eos % (Auto) (0.8-7.0) Baso % (Auto) (0.1-1.2) % Neut # (Auto) (1.78-5.38) K/mm3 Lymph # (Auto) (1.32-3.57) K/mm3 [place] # (Auto) (0.30-0.82) K/mm3 Eos # (Auto) (0.04-0.54) K/mm3 Baso # (Auto) (0.01-0.08) K/mm3 Manual Slide Review PT (9.5-12.1) SECONDS INR Sodium 152 H (136-145) mEq/L Potassium 3.5 (3.5-5.1) mEq/L Chloride 117 H (98-107) mEq/L Carbon Dioxide 29 (21-32) mEq/L Anion Gap 9.5 (5-15) BUN 41 H (7-18) mg/dL Creatinine 1.1 (0.7-1.3) mg/dL Est Cr Clr Drug Dosing 74.66 mL/min Estimated GFR (MDRD) > 60 (>60) mL/min BUN/Creatinine Ratio 37.3 H (14-18) Glucose 146 H (74-106) mg/dL POC Glucose 161 H (70-105) mg/dL Hemoglobin A1c 5.90 (4.50-6.20) % Calcium 9.0 (8.5-10.1) mg/dL Magnesium 2.2 (1.8-2.4) mg/dl Total Bilirubin 3.5 H (0.2-1.0) mg/dL AST 44 H (15-37) U/L ALT 38 (16-63) U/L Alkaline Phosphatase 83 (46-116) U/L Total Protein 5.7 L (6.4-8.2) g/dl Albumin 1.8 L (3.4-5.0) g/dl Globulin 3.9 gm/dL Albumin/Globulin Ratio 0.5 L (1-2) TSH 3rd Generation (0.358-3.74) uIU/mL 12/09/18 12/09/18 12/09/18 Range/Units 06:00 06:00 06:00 WBC 8.00 (4.23-9.07) K/mm3 RBC 3.12 L (4.63-6.08) M/mm3 Hgb 10.3 L (13.7-17.5) gm/L Hct 31.1 L (40.1-51.0) % MCV 99.7 H (79.0-92.2) fl MCH 33.0 H (25.7-32.2) pg MCHC 33.1 (32.2-35.5) g/dl RDW Std Deviation 59.9 H (35.1-43.9) fL Plt Count 36 L (163-337) K/mm3 MPV 10.3 (9.4-12.3) fl Neut % (Auto) 88.5 H (34.0-67.9) % Lymph % (Auto) 6.6 L (21.8-53.1) % [place] % (Auto) 4.6 L (5.3-12.2) % Eos % (Auto) 0 L (0.8-7.0) Baso % (Auto) 0.0 L (0.1-1.2) % Neut # (Auto) 7.08 H (1.78-5.38) K/mm3 Lymph # (Auto) 0.53 L (1.32-3.57) K/mm3 [place] # (Auto) 0.37 (0.30-0.82) K/mm3 Eos # (Auto) 0.00 L (0.04-0.54) K/mm3 Baso # (Auto) 0.00 L (0.01-0.08) K/mm3 Manual Slide Review Abnormal smear PT 18.8 H (9.5-12.1) SECONDS INR 1.74 Sodium (136-145) mEq/L Potassium (3.5-5.1) mEq/L Chloride (98-107) mEq/L Carbon Dioxide (21-32) mEq/L Anion Gap (5-15) BUN (7-18) mg/dL Creatinine (0.7-1.3) mg/dL Est Cr Clr Drug Dosing mL/min Estimated GFR (MDRD) (>60) mL/min BUN/Creatinine Ratio (14-18) Glucose (74-106) mg/dL POC Glucose (70-105) mg/dL Hemoglobin A1c (4.50-6.20) % Calcium (8.5-10.1) mg/dL Magnesium (1.8-2.4) mg/dl Total Bilirubin (0.2-1.0) mg/dL AST (15-37) U/L ALT (16-63) U/L Alkaline Phosphatase (46-116) U/L Total Protein (6.4-8.2) g/dl Albumin (3.4-5.0) g/dl Globulin gm/dL Albumin/Globulin Ratio (1-2) TSH 3rd Generation 4.627 H (0.358-3.74) uIU/mL 04/30/19 04/30/19 04/30/19 Range/Units 06:45 12:32 17:27 WBC (4.23-9.07) K/mm3 RBC (4.63-6.08) M/mm3 Hgb (13.7-17.5) gm/L Hct (40.1-51.0) % MCV (79.0-92.2) fl MCH (25.7-32.2) pg MCHC (32.2-35.5) g/dl RDW Std Deviation (35.1-43.9) fL Plt Count (163-337) K/mm3 MPV (9.4-12.3) fl Neut % (Auto) (34.0-67.9) % Lymph % (Auto) (21.8-53.1) % [place] % (Auto) (5.3-12.2) % Eos % (Auto) (0.8-7.0) Baso % (Auto) (0.1-1.2) % Neut # (Auto) (1.78-5.38) K/mm3 Lymph # (Auto) (1.32-3.57) K/mm3 [place] # (Auto) (0.30-0.82) K/mm3 Eos # (Auto) (0.04-0.54) K/mm3 Baso # (Auto) (0.01-0.08) K/mm3 Manual Slide Review PT (9.5-12.1) SECONDS INR Sodium (136-145) mEq/L Potassium (3.5-5.1) mEq/L Chloride (98-107) mEq/L Carbon Dioxide (21-32) mEq/L Anion Gap (5-15) BUN (7-18) mg/dL Creatinine (0.7-1.3) mg/dL Est Cr Clr Drug Dosing mL/min Estimated GFR (MDRD) (>60) mL/min BUN/Creatinine Ratio (14-18) Glucose (74-106) mg/dL POC Glucose 145 H 146 H 201 H (70-105) mg/dL Hemoglobin A1c (4.50-6.20) % Calcium (8.5-10.1) mg/dL Magnesium (1.8-2.4) mg/dl Total Bilirubin (0.2-1.0) mg/dL AST (15-37) U/L ALT (16-63) U/L Alkaline Phosphatase (46-116) U/L Total Protein (6.4-8.2) g/dl Albumin (3.4-5.0) g/dl Globulin gm/dL Albumin/Globulin Ratio (1-2) TSH 3rd Generation (0.358-3.74) uIU/mL Med Orders - Current: Current Medications Hydrocodone Bitart/Acetaminophen ([place] 325-5 Mg) 1 tab PO Q6H PRN PRN Reason: Pain (moderate 4-6) Last Admin: 12/09/18 17:50 Dose: 1 tab Al Hydroxide/Mg Hydroxide (Mag-Al Plus) 30 ml PO Q4H PRN PRN Reason: Heartburn Last Admin: 12/07/18 20:54 Dose: 30 ml Albuterol/Ipratropium (Duoneb 3.0-0.5 Mg/3 Ml) 3 ml NEB Q8HRRT [facility] Last Admin: 12/09/18 14:04 Dose: 3 ml Albuterol/Ipratropium (Duoneb 3.0-0.5 Mg/3 Ml) 3 ml NEB Q4HRRT PRN PRN Reason: Wheezing Bumetanide (Bumex) 0.5 mg IVPUSH BID [facility] Last Admin: 12/09/18 09:41 Dose: 0.5 mg Dexamethasone (Dexamethasone) 4 mg IVPUSH DAILY [facility] Last Admin: 12/09/18 09:41 Dose: 4 mg Famotidine (Pepcid) 20 mg PO BID [facility]AJ Glipizide (Glucotrol Xl) 2.5 mg PO BID [facility] Last Admin: 12/09/18 09:58 Dose: 2.5 mg Hydrochlorothiazide (Hydrochlorothiazide) 12.5 mg PO BIDDIURETIC [facility] Last Admin: 12/09/18 13:45 Dose: 12.5 mg Insulin Glargine (Lantus) 10 unit SUBCUT BID [facility] Last Admin: 12/09/18 09:54 Dose: 10 units Insulin Human Lispro (Humalog) 0 unit SUBCUT QIDACANDBED [facility]; Protocol Last Admin: 12/09/18 17:49 Dose: 6 units Lactulose (Cephulac) 20 gm PO TID@0700,1400,2100 [facility] Last Admin: 12/09/18 13:45 Dose: 20 gm Lorazepam (Ativan) 0.5 mg IVPUSH Q6H PRN PRN Reason: restlessness Last Admin: 12/09/18 00:17 Dose: 0.5 mg Magnesium Oxide (Magnesium Oxide) 800 mg PO BID [facility] Last Admin: 12/09/18 09:58 Dose: 800 mg Metoclopramide HCl (Reglan) 10 mg IVPUSH Q6H [facility] Last Admin: 12/09/18 17:53 Dose: 10 mg Morphine Sulfate (Morphine) 0.5 mg IVPUSH Q4H PRN PRN Reason: Shortness of Breath Rifaximin (Xifaxan) 550 mg PO BID [facility] Last Admin: 12/09/18 09:57 Dose: 550 mg Saccharomyces Boulardii (Florastor) 250 mg PO BID [facility] Last Admin: 12/09/18 09:57 Dose: 250 mg Sodium Chloride (Saline Flush) 10 ml FLUSH ASDIRECTED PRN PRN Reason: Keep Vein Open Last Admin: 12/07/18 10:05 Dose: 10 ml Sodium Chloride (Sodium Chloride 0.9%) 3 ml INH ASDIRECTED PRN PRN Reason: mix with racepinephrine neb Spironolactone (Aldactone) 12.5 mg PO BID [facility] Last Admin: 12/09/18 09:57 Dose: 12.5 mg Discontinued Medications Hydrocodone Bitart/Acetaminophen ([place] 325-5 Mg) 1 tab PO Q4H PRN PRN Reason: Pain (moderate 4-6) Last Admin: 12/07/18 08:55 Dose: 1 tab Bumetanide (Bumex) 1 mg IVPUSH ONETIME ONE Stop: 12/03/18 16:12 Last Admin: 12/03/18 16:25 Dose: 1 mg Bumetanide (Bumex) 1 mg IVPUSH ONETIME ONE Stop: 12/03/18 21:01 Last Admin: 12/03/18 21:16 Dose: 1 mg Bumetanide (Bumex) 1 mg IVPUSH ONETIME ONE Stop: 12/04/18 13:25 Last Admin: 12/04/18 14:36 Dose: 1 mg Caffeine (Caffeine) 200 mg PO DAILY [facility] Stop: 12/09/18 12:30 Last Admin: 12/09/18 11:55 Dose: Not Given Calcium Carbonate/Glycine (Calcium Carbonate) 1,200 mg PO ONETIME ONE Stop: 12/02/18 22:23 Last Admin: 12/02/18 22:42 Dose: 1,200 mg Calcium Carbonate/Glycine (Tums) 1,000 mg PO ONETIME ONE Stop: 12/04/18 21:33 Last Admin: 12/04/18 22:32 Dose: 1,000 mg Calcium Gluconate (Calcium Gluconate) 1 gm IVPUSH ONETIME ONE Stop: 12/03/18 14:10 Last Admin: 12/03/18 14:47 Dose: Not Given Dexamethasone (Dexamethasone) 4 mg IVPUSH Q12H [facility] Last Admin: 12/03/18 05:48 Dose: 4 mg Dexamethasone (Dexamethasone) 4 mg IVPUSH Q12H [facility] Stop: 12/05/18 09:30 Last Admin: 12/05/18 09:04 Dose: 4 mg Dexamethasone (Dexamethasone) 4 mg IVPUSH ONETIME ONE Stop: 12/08/18 17:33 Last Admin: 12/08/18 18:15 Dose: 4 mg Erythromycin (Jed-Tab) 250 mg PO Q8HR [facility] Last Admin: 12/03/18 05:41 Dose: 250 mg Etomidate (Amidate) 30 mg IVPUSH ONETIME ONE Stop: 11/30/18 18:39 Last Admin: 11/30/18 18:52 Dose: 30 mg Famotidine (Pepcid) 20 mg IVPUSH BID [facility] Last Admin: 12/09/18 09:41 Dose: 20 mg Famotidine (Pepcid) 20 mg IVPUSH ONETIME ONE Stop: 11/30/18 21:57 Last Admin: 11/30/18 22:26 Dose: 20 mg Furosemide (Lasix) 20 mg IVPUSH NOW ONE Stop: 12/01/18 23:01 Last Admin: 12/01/18 23:16 Dose: 20 mg Furosemide (Lasix) 40 mg PO DAILY [facility] Last Admin: 12/05/18 09:11 Dose: 40 mg Hydrochlorothiazide (Hydrochlorothiazide) 25 mg PO ONETIME ONE Stop: 12/07/18 12:27 Last Admin: 12/07/18 13:05 Dose: 25 mg Hydrochlorothiazide (Hydrochlorothiazide) 12.5 mg PO ONETIME ONE Stop: 12/07/18 21:01 Last Admin: 12/07/18 20:51 Dose: 12.5 mg Sodium Chloride (Normal Saline) 1,000 mls @ 125 mls/hr IV ASDIRECTED [facility]IRAJ Last Admin: 11/30/18 16:55 Dose: 125 mls/hr Propofol (Diprivan 100 Ml) 100 mls @ 7.348 mls/hr IV TITRATE [facility]IRAJ; Protocol Last Titration: 12/01/18 11:09 Dose: 0 mcg/kg/min, 0 mls/hr Propofol (Diprivan 100 Ml) Confirm Administered Dose 100 mls @ as directed .ROUTE .STK-MED ONE Stop: 11/30/18 19:02 Last Admin: 11/30/18 19:15 Dose: Not Given Dextrose/Sodium Chloride (Dextrose 5%-Normal Saline) 1,000 mls @ 100 mls/hr IV ASDIRECTED [facility] Last Admin: 12/01/18 09:20 Dose: 100 mls/hr Magnesium Sulfate 4 gm/ Premix 50 mls @ 12.5 mls/hr IV ONETIME ONE Stop: 12/01/18 13:28 Last Admin: 12/01/18 09:50 Dose: 12.5 mls/hr Magnesium Sulfate 4 gm/ Premix 50 mls @ 12.5 mls/hr IV ONETIME ONE Stop: 12/01/18 23:59 Last Admin: 12/01/18 19:58 Dose: 12.5 mls/hr Potassium Chloride/Sodium Chloride (Normal Saline With 20 Meq Kcl) 1,000 mls @ 100 mls/hr IV ASDIRECTED [facility] Last Admin: 12/02/18 01:03 Dose: 100 mls/hr Potassium Chloride/Sodium Chloride (Normal Saline With 20 Meq Kcl) 500 mls @ 500 mls/hr IV ASDIRECTED DHIRAJ Stop: 12/01/18 19:29 Last Admin: 12/01/18 18:47 Dose: 500 mls/hr Piperacillin Sod/Tazobactam (Sod 4.5 gm/ Sodium Chloride) 100 mls @ 25 mls/hr IV Q8H [facility] Last Admin: 12/06/18 01:18 Dose: 25 mls/hr Piperacillin Sod/Tazobactam (Sod 4.5 gm/ Sodium Chloride) 100 mls @ 200 mls/hr IV ONETIME ONE Stop: 12/01/18 19:14 Last Admin: 12/01/18 19:14 Dose: 200 mls/hr Dextrose/Sodium Chloride (Dextrose 5%-Normal Saline) 1,000 mls @ 100 mls/hr IV ASDIRECTED [facility]IRAJ Last Admin: 12/02/18 05:46 Dose: 100 mls/hr Levofloxacin/Dextrose 750 mg/ (Premix) 150 mls @ 100 mls/hr IV ONETIME ONE Stop: 12/02/18 07:29 Last Admin: 12/02/18 08:46 Dose: Not Given Sodium Chloride (Normal Saline) 500 mls @ 999 mls/hr IV .BOLUS ONE Stop: 12/02/18 05:56 Last Admin: 12/02/18 05:45 Dose: 999 mls/hr Sodium Chloride (Normal Saline) Confirm Administered Dose 500 mls @ as directed .ROUTE .STK-MED ONE Stop: 12/02/18 05:45 Last Admin: 12/02/18 05:50 Dose: Not Given Norepinephrine Bitartrate 4 mg (/ Dextrose/Water) 250 mls @ 7.5 mls/hr IV TITRATE [facility]IRAJ; Protocol Last Titration: 12/02/18 11:17 Dose: 0 mcg/min, 0 mls/hr Levofloxacin/Dextrose 750 mg/ (Premix) 150 mls @ 100 mls/hr IV ONETIME ONE Stop: 12/02/18 13:29 Last Admin: 12/02/18 12:15 Dose: 100 mls/hr Sodium Chloride (Normal Saline) 2,000 mls @ 999 mls/hr IV ONETIME ONE Stop: 12/02/18 10:42 Last Admin: 12/02/18 09:11 Dose: 999 mls/hr Potassium Chloride/Sodium Chloride (Normal Saline With 20 Meq Kcl) 1,000 mls @ 150 mls/hr IV ASDIRECTED DHIRAJ Last Admin: 12/03/18 08:14 Dose: 150 mls/hr Dextrose/Sodium Chloride (Dextrose 5%-Normal Saline) 1,000 mls @ 150 mls/hr IV ASDIRECTED DHIRAJ Last Admin: 12/02/18 22:32 Dose: 150 mls/hr Sodium Chloride (Normal Saline) 100 mls @ 60 mls/hr IV ASDIRECTED [facility]IRAJ Last Admin: 12/02/18 14:44 Dose: 60 mls/hr Sodium Chloride (Normal Saline) 1,000 mls @ 999 mls/hr IV ONETIME ONE Stop: 12/02/18 15:18 Last Admin: 12/02/18 15:00 Dose: 999 mls/hr Levofloxacin/Dextrose 750 mg/ (Premix) 150 mls @ 100 mls/hr IV Q24H [facility]IRAJ Levofloxacin/Dextrose 750 mg/ (Premix) 150 mls @ 100 mls/hr IV Q24H [facility] Last Admin: 12/05/18 15:11 Dose: 100 mls/hr Calcium Gluconate 1 gm/ Sodium (Chloride) 60 mls @ 120 mls/hr IV ONETIME ONE Stop: 12/03/18 15:29 Last Admin: 12/03/18 14:37 Dose: 100 mls/hr Sodium Chloride (Normal Saline) 1,000 mls @ 75 mls/hr IV ASDIRECTED [facility]IRAJ Last Infusion: 12/04/18 18:14 Dose: 25 mls/hr Sodium Chloride (Normal Saline) 1,000 mls @ 25 mls/hr IV ASDIRECTED [facility] Last Admin: 12/04/18 18:15 Dose: 25 mls/hr Albumin Human (Flexbumin 25%) 12.5 gm in 50 mls @ 100 mls/hr IV ONETIME ONE Stop: 12/07/18 12:56 Last Admin: 12/07/18 13:05 Dose: 100 mls/hr Albumin Human (Flexbumin 25%) 12.5 gm in 50 mls @ 100 mls/hr IV ONETIME ONE Stop: 12/08/18 04:29 Last Admin: 12/08/18 03:03 Dose: 100 mls/hr Insulin Glargine (Lantus) 10 unit SUBCUT BID [facility] Last Admin: 12/07/18 20:50 Dose: 10 units Insulin Glargine (Lantus) 12 unit SUBCUT BID [facility]IRAJ Insulin Human Lispro (Humalog) 0 unit SUBCUT Q6HR [facility]; Protocol Last Admin: 12/03/18 12:27 Dose: 9 unit Insulin Human Lispro (Humalog) 0 unit SUBCUT QIDACANDBED [facility]; Protocol Last Admin: 12/03/18 17:32 Dose: 9 units Insulin Human Lispro (Humalog) 0 unit SUBCUT Q6HR [facility]; Protocol Last Admin: 12/07/18 23:10 Dose: 1 units Iopamidol (Isovue-370 (76%)) 100 ml IV ONETIME ONE Stop: 12/02/18 07:40 Last Admin: 12/02/18 09:30 Dose: 100 ml Iopamidol (Isovue-370 (76%)) 100 ml IV ONETIME ONE Stop: 12/02/18 14:19 Last Admin: 12/02/18 14:44 Dose: 100 ml Lactulose (Cephulac) 60 gm NGTUBE ONETIME ONE Stop: 11/30/18 19:01 Last Admin: 11/30/18 19:52 Dose: 60 gm Lactulose (Cephulac) 60 gm PO ONETIME ONE Stop: 12/01/18 01:01 Last Admin: 12/01/18 01:00 Dose: 60 gm Lactulose (Cephulac) 45 gm PO Q6H [facility] Last Admin: 12/02/18 09:16 Dose: Not Given Lactulose (Cephulac) 30 gm PO BID [facility] Last Admin: 12/04/18 16:28 Dose: 30 gm Lactulose (Cephulac) 30 gm PO TID [facility] Last Admin: 12/05/18 15:14 Dose: 30 gm Lactulose (Cephulac) 20 gm PO BID [facility] Last Admin: 12/06/18 08:37 Dose: 20 gm Levofloxacin (Levaquin) 750 mg PO Q24H [facility] Last Admin: 12/07/18 10:05 Dose: 750 mg Lorazepam (Ativan) 1 mg IVPUSH Q6H PRN PRN Reason: restlessness Last Admin: 12/07/18 21:33 Dose: 1 mg Methylprednisolone Sodium Succinate (Solu-Medrol) 125 mg IVPUSH Q8H [facility] Stop: 12/04/18 06:01 Last Admin: 12/04/18 05:40 Dose: 125 mg Midazolam HCl (Versed 1 Mg/Ml) 5 mg IVPUSH ONETIME ONE Stop: 11/30/18 19:30 Last Admin: 11/30/18 19:32 Dose: 5 mg Modafinil (Provigil) 200 mg PO DAILY [facility] Stop: 12/04/18 07:30 Last Admin: 12/03/18 08:00 Dose: 200 mg Modafinil (Provigil) 100 mg PO ONETIME ONE Stop: 12/02/18 20:45 Last Admin: 12/02/18 21:10 Dose: 100 mg Modafinil (Provigil) 200 mg PO NOW [facility] Stop: 12/04/18 13:28 Last Admin: 12/04/18 15:15 Dose: 200 mg Modafinil (Provigil) 200 mg PO DAILY [facility] Last Admin: 12/09/18 11:55 Dose: Not Given Morphine Sulfate (Morphine) 1 mg IVPUSH ONETIME ONE Stop: 12/01/18 11:18 Last Admin: 12/01/18 11:37 Dose: 1 mg Morphine Sulfate (Morphine) 2 mg IVPUSH ONETIME ONE Stop: 12/01/18 16:46 Last Admin: 12/01/18 16:52 Dose: 2 mg Morphine Sulfate (Morphine) 2 mg IVPUSH Q4H PRN PRN Reason: Shortness of Breath Last Admin: 12/04/18 17:06 Dose: 2 mg Morphine Sulfate (Morphine) 1 mg IVPUSH ONETIME ONE Stop: 12/03/18 16:11 Last Admin: 12/03/18 16:24 Dose: 1 mg Morphine Sulfate (Morphine) 1 mg IVPUSH Q4H PRN PRN Reason: Shortness of Breath Last Admin: 12/07/18 20:56 Dose: 1 mg Neostigmine Methylsulfate (Neostigmine Methylsulfate) 0.5 mg IM Q6H [facility] Stop: 12/08/18 07:31 Last Admin: 12/08/18 09:43 Dose: 0.5 mg Racepinephrine (S-2 2.25%) 0.5 ml NEB Q4HRRT PRN PRN Reason: subglottic narrowing Racepinephrine (S-2 2.25%) 0.5 ml NEB TID [facility] Stop: 12/06/18 09:00 Last Admin: 12/05/18 20:23 Dose: 0.5 ml Racepinephrine (S-2 2.25%) 0.5 ml NEB Q4HRRT PRN PRN Reason: choking Last Admin: 12/06/18 10:14 Dose: 0.5 ml Racepinephrine (S-2 2.25%) 0.5 ml NEB ONETIME ONE Stop: 12/04/18 13:41 Last Admin: 12/04/18 13:40 Dose: 0.5 ml Rivaroxaban (Xarelto) 20 mg PO DAILY [facility] Last Admin: 12/05/18 12:37 Dose: Not Given Rivaroxaban (Xarelto) 20 mg PO ONETIME ONE Stop: 12/04/18 21:28 Last Admin: 12/04/18 22:32 Dose: 20 mg Sodium Chloride (Saline Flush) 10 ml FLUSH ONETIME ONE Stop: 12/02/18 07:40 Last Admin: 12/02/18 09:30 Dose: 10 ml Sodium Chloride (Sodium Chloride 0.9%) 0 ml INH TID [facility] Stop: 12/06/18 09:00 Last Admin: 12/06/18 10:15 Dose: 3 ml Sodium Chloride (Sodium Chloride 0.9%) 3 ml INH ASDIRECTED PRN PRN Reason: mix with racepinephrine neb Succinylcholine Chloride (Quelicin) 180 mg IV ONETIME ONE Stop: 11/30/18 18:46 Last Admin: 11/30/18 18:53 Dose: 180 mg - Exam General: Lethargic GI/Abdominal Exam: Non-Tender, Distended Consult PN Assessment/Plan Procedures: Procedures ASSAY OF AMMONIA (01/08/18) ASSAY OF BLOOD OSMOLALITY (09/20/16) ASSAY OF CK (CPK) (05/31/17) ASSAY OF ETHANOL (02/20/14) ASSAY OF GGT (05/31/17) ASSAY OF LACTIC ACID (05/31/17) ASSAY OF LIPASE (07/22/16) ASSAY OF MAGNESIUM (12/25/17) ASSAY OF NATRIURETIC PEPTIDE (09/20/16) ASSAY OF TROPONIN QUANT (05/31/17) ASSAY OF URINE OSMOLALITY (07/22/16) ASSAY THYROID STIM HORMONE (05/31/17) BLOOD CULTURE FOR BACTERIA (05/31/17) BLOOD GASES ANY COMBINATION (05/31/17) BLOOD TYPING SEROLOGIC ABO (02/20/14) BLOOD TYPING SEROLOGIC RH(D) (02/20/14) C-REACTIVE PROTEIN (09/20/16) CHEST X-RAY 1 VIEW FRONTAL (05/31/17) CHEST X-RAY 2VW FRONTAL&LATL (01/27/16) COMPATIBILITY TEST ANTIGLOB (02/20/14) COMPLETE CBC W/AUTO DIFF WBC (12/25/17) COMPREHEN METABOLIC PANEL (12/25/17) CRITICAL CARE FIRST HOUR (05/31/17) CT HEAD/BRAIN W/O DYE (05/31/17) CT NECK SPINE W/O DYE (05/31/17) CULTURE OTHR SPECIMN AEROBIC (01/10/15) DRAINAGE OF SKIN ABSCESS (01/10/15) DRUG TEST PRSMV INSTRMNT (11/06/17) ELECTROCARDIOGRAM TRACING (05/31/17) EMERGENCY DEPT VISIT (09/20/16) EMERGENCY DEPT VISIT (03/03/16) EMERGENCY DEPT VISIT (01/27/16) EMERGENCY DEPT VISIT (01/10/15) EMERGENCY DEPT VISIT (03/26/14) EMERGENCY DEPT VISIT (02/20/14) FIBRIN DEGRADATION QUANT (05/31/17) GLYCOSYLATED HEMOGLOBIN TEST (10/16/17) HEPATIC FUNCTION PANEL (12/01/15) HYDRATE IV INFUSION ADD-ON (01/27/16) HYDRATION IV INFUSION INIT (09/20/16) INSERT EMERGENCY AIRWAY (05/31/17) INSERT TEMP BLADDER CATH (05/31/17) LACTATE (LD) (LDH) ENZYME (05/31/17) LIPID PANEL (10/16/17) METABOLIC PANEL TOTAL CA (04/03/17) PROTHROMBIN TIME (10/16/17) RBC ANTIBODY SCREEN (02/20/14) RBC SED RATE AUTOMATED (01/10/15) ROUTINE VENIPUNCTURE (12/25/17) THER/PROPH/DIAG INJ IV PUSH (05/31/17) THER/PROPH/DIAG INJ SC/IM (09/20/16) THER/PROPH/DIAG IV INF ADDON (05/31/17) THER/PROPH/DIAG IV INF INIT (05/31/17) THROMBOPLASTIN TIME PARTIAL (05/31/17) TX/PRO/DX INJ NEW DRUG ADDON (02/20/14) TX/PRO/DX INJ SAME DRUG 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 He states that he has not used alcohol since 2013. He has had a gastric by pass and has diabetes The brother feels that the liver cirrhosis is from the diabetes lab about the same exam abdomen exame unchanged no bowel sounds ass stable his mental status seems better plan continue with present treatment LEDY
[2018-12-09] MEDS: Famotidine 20 MG Tab PO SCH (21:33)
[2018-12-10] MEDS: Acetaminophen/HYDROcodone 325-5 MG Tab PO PRN ×2 (00:23→08:46)
[2018-12-10] MEDS: Metoclopramide 10 MG/2 ML SDV IVPUSH SCH ×4 (05:10→22:38)
[2018-12-10] MEDS: Lactulose Soln 10 GM/15 ML 30 ML UD Cup PO SCH ×3 (05:59→21:52)
[2018-12-10] MEDS: Hydrochlorothiazide 12.5 MG Cap PO SCH ×2 (05:59→15:14)
[2018-12-10] MEDS: Albuterol/Ipratropium 3.0-0.5 MG/3 ML Neb Soln NEB SCH ×3 (06:17→21:34)
--- NOTE | 2018-12-10 08:00 | PCM.PN ---
- General Info Date of Service: 12/10/18 Admission Dx/Problem (Free Text): Admission Diagnosis/Problem Admission Diagnosis/Problem Cirrhosis of liver Subjective Update: Follow Up Functional Status: Reports: Pain Controlled, Tolerating Diet, Urinating. Denies : New Symptoms - Review of Systems General: Reports: Weakness, Fatigue. Denies: Fever, Chills HEENT: Reports: No Symptoms Pulmonary: Denies: Shortness of Breath Cardiovascular: Reports: Edema. Denies: Chest Pain Gastrointestinal: Reports: Decreased Appetite, Flatus. Denies: Abdominal Pain, Nausea, Vomiting Genitourinary: Reports: No Symptoms Musculoskeletal: Reports: No Symptoms Skin: Reports: Cyanosis, Jaundice, Bruising Neurological: Reports: Confusion, Difficulty Walking, Weakness, Gait Disturbance Psychiatric: Reports: Mood Lability, Anxiety, Agitation, Hallucinations Systems Review Comment:: He had an uneventful night. However he is less alert and awake this AM. His abdomen remains distended but tolerating some oral intake to include meals. - Patient Data Vitals - Most Recent: Last Vital Signs Temp 36.7 C 12/10/18 04:24 Pulse 79 12/10/18 04:24 Resp 20 12/10/18 04:24 BP 121/66 12/10/18 04:24 Pulse Ox 93 L 12/10/18 06:18 Weight - Most Recent: 127.516 kg I&O - Last 24 Hours: Intake & Output 12/09/18 12/10/18 12/10/18 22:59 06:59 14:59 Intake Total 1240 300 Output Total 655 820 Balance 585 -520 Lab Results Last 24 Hours: Laboratory Results - last 24 hr 12/08/18 12/09/18 12/09/18 Range/Units 05:05 12:32 17:27 PT (9.5-12.1) SECONDS INR POC Glucose 146 H 201 H (70-105) mg/dL Hemoglobin A1c 5.90 (4.50-6.20) % 12/09/18 12/09/18 12/10/18 Range/Units 21:00 23:52 05:54 PT (9.5-12.1) SECONDS INR POC Glucose 182 H 161 H 152 H (70-105) mg/dL Hemoglobin A1c (4.50-6.20) % 12/10/18 Range/Units 06:48 PT 19.4 H (9.5-12.1) SECONDS INR 1.80 POC Glucose (70-105) mg/dL Hemoglobin A1c (4.50-6.20) % Med Orders - Current: Current Medications Hydrocodone Bitart/Acetaminophen (Canadian 325-5 Mg) 1 tab PO Q6H PRN PRN Reason: Pain (moderate 4-6) Last Admin: 12/10/18 00:23 Dose: 1 tab Al Hydroxide/Mg Hydroxide (Mag-Al Plus) 30 ml PO Q4H PRN PRN Reason: Heartburn Last Admin: 12/07/18 20:54 Dose: 30 ml Albuterol/Ipratropium (Duoneb 3.0-0.5 Mg/3 Ml) 3 ml NEB Q8HRRT [facility] Last Admin: 12/10/18 06:17 Dose: 3 ml Albuterol/Ipratropium (Duoneb 3.0-0.5 Mg/3 Ml) 3 ml NEB Q4HRRT PRN PRN Reason: Wheezing Bumetanide (Bumex) 0.5 mg IVPUSH BID [facility] Last Admin: 12/09/18 21:30 Dose: 0.5 mg Dexamethasone (Dexamethasone) 4 mg IVPUSH DAILY [facility] Last Admin: 12/09/18 09:41 Dose: 4 mg Famotidine (Pepcid) 20 mg PO BID [facility] Last Admin: 12/09/18 21:33 Dose: 20 mg Glipizide (Glucotrol Xl) 2.5 mg PO BID [facility] Last Admin: 12/09/18 21:36 Dose: 2.5 mg Hydrochlorothiazide (Hydrochlorothiazide) 12.5 mg PO BIDDIURETIC [facility] Last Admin: 12/10/18 05:59 Dose: 12.5 mg Insulin Glargine (Lantus) 10 unit SUBCUT BID [facility] Last Admin: 12/09/18 21:29 Dose: 10 units Insulin Human Lispro (Humalog) 0 unit SUBCUT QIDACANDBED [facility]; Protocol Last Admin: 12/09/18 21:31 Dose: 3 units Lactulose (Cephulac) 20 gm PO TID@0700,1400,2100 [facility] Last Admin: 12/10/18 05:59 Dose: 20 gm Lorazepam (Ativan) 0.5 mg IVPUSH Q6H PRN PRN Reason: restlessness Last Admin: 12/09/18 00:17 Dose: 0.5 mg Magnesium Oxide (Magnesium Oxide) 800 mg PO BID [facility] Last Admin: 12/09/18 21:33 Dose: 800 mg Metoclopramide HCl (Reglan) 10 mg IVPUSH Q6H [facility] Last Admin: 12/10/18 05:10 Dose: 10 mg Morphine Sulfate (Morphine) 0.5 mg IVPUSH Q4H PRN PRN Reason: Shortness of Breath Rifaximin (Xifaxan) 550 mg PO BID [facility] Last Admin: 12/09/18 21:33 Dose: 550 mg Saccharomyces Boulardii (Florastor) 250 mg PO BID [facility] Last Admin: 12/09/18 21:34 Dose: 250 mg Sodium Chloride (Saline Flush) 10 ml FLUSH ASDIRECTED PRN PRN Reason: Keep Vein Open Last Admin: 12/07/18 10:05 Dose: 10 ml Sodium Chloride (Sodium Chloride 0.9%) 3 ml INH ASDIRECTED PRN PRN Reason: mix with racepinephrine neb Spironolactone (Aldactone) 12.5 mg PO BID [facility] Last Admin: 12/09/18 21:34 Dose: 12.5 mg Discontinued Medications Hydrocodone Bitart/Acetaminophen (Canadian 325-5 Mg) 1 tab PO Q4H PRN PRN Reason: Pain (moderate 4-6) Last Admin: 12/07/18 08:55 Dose: 1 tab Bumetanide (Bumex) 1 mg IVPUSH ONETIME ONE Stop: 12/03/18 16:12 Last Admin: 12/03/18 16:25 Dose: 1 mg Bumetanide (Bumex) 1 mg IVPUSH ONETIME ONE Stop: 12/03/18 21:01 Last Admin: 12/03/18 21:16 Dose: 1 mg Bumetanide (Bumex) 1 mg IVPUSH ONETIME ONE Stop: 12/04/18 13:25 Last Admin: 12/04/18 14:36 Dose: 1 mg Caffeine (Caffeine) 200 mg PO DAILY [facility] Stop: 12/09/18 12:30 Last Admin: 12/09/18 11:55 Dose: Not Given Calcium Carbonate/Glycine (Calcium Carbonate) 1,200 mg PO ONETIME ONE Stop: 12/02/18 22:23 Last Admin: 12/02/18 22:42 Dose: 1,200 mg Calcium Carbonate/Glycine (Tums) 1,000 mg PO ONETIME ONE Stop: 12/04/18 21:33 Last Admin: 12/04/18 22:32 Dose: 1,000 mg Calcium Gluconate (Calcium Gluconate) 1 gm IVPUSH ONETIME ONE Stop: 12/03/18 14:10 Last Admin: 12/03/18 14:47 Dose: Not Given Dexamethasone (Dexamethasone) 4 mg IVPUSH Q12H [facility] Last Admin: 12/03/18 05:48 Dose: 4 mg Dexamethasone (Dexamethasone) 4 mg IVPUSH Q12H [facility] Stop: 12/05/18 09:30 Last Admin: 12/05/18 09:04 Dose: 4 mg Dexamethasone (Dexamethasone) 4 mg IVPUSH ONETIME ONE Stop: 12/08/18 17:33 Last Admin: 12/08/18 18:15 Dose: 4 mg Erythromycin (Jed-Tab) 250 mg PO Q8HR [facility] Last Admin: 12/03/18 05:41 Dose: 250 mg Etomidate (Amidate) 30 mg IVPUSH ONETIME ONE Stop: 11/30/18 18:39 Last Admin: 11/30/18 18:52 Dose: 30 mg Famotidine (Pepcid) 20 mg IVPUSH BID [facility] Last Admin: 12/09/18 09:41 Dose: 20 mg Famotidine (Pepcid) 20 mg IVPUSH ONETIME ONE Stop: 11/30/18 21:57 Last Admin: 11/30/18 22:26 Dose: 20 mg Furosemide (Lasix) 20 mg IVPUSH NOW ONE Stop: 12/01/18 23:01 Last Admin: 12/01/18 23:16 Dose: 20 mg Furosemide (Lasix) 40 mg PO DAILY [facility] Last Admin: 12/05/18 09:11 Dose: 40 mg Hydrochlorothiazide (Hydrochlorothiazide) 25 mg PO ONETIME ONE Stop: 12/07/18 12:27 Last Admin: 12/07/18 13:05 Dose: 25 mg Hydrochlorothiazide (Hydrochlorothiazide) 12.5 mg PO ONETIME ONE Stop: 12/07/18 21:01 Last Admin: 12/07/18 20:51 Dose: 12.5 mg Sodium Chloride (Normal Saline) 1,000 mls @ 125 mls/hr IV ASDIRECTED [facility] Last Admin: 11/30/18 16:55 Dose: 125 mls/hr Propofol (Diprivan 100 Ml) 100 mls @ 7.348 mls/hr IV TITRATE [facility]; Protocol Last Titration: 12/01/18 11:09 Dose: 0 mcg/kg/min, 0 mls/hr Propofol (Diprivan 100 Ml) Confirm Administered Dose 100 mls @ as directed .ROUTE .STK-MED ONE Stop: 11/30/18 19:02 Last Admin: 11/30/18 19:15 Dose: Not Given Dextrose/Sodium Chloride (Dextrose 5%-Normal Saline) 1,000 mls @ 100 mls/hr IV ASDIRECTED [facility] Last Admin: 12/01/18 09:20 Dose: 100 mls/hr Magnesium Sulfate 4 gm/ Premix 50 mls @ 12.5 mls/hr IV ONETIME ONE Stop: 12/01/18 13:28 Last Admin: 12/01/18 09:50 Dose: 12.5 mls/hr Magnesium Sulfate 4 gm/ Premix 50 mls @ 12.5 mls/hr IV ONETIME ONE Stop: 12/01/18 23:59 Last Admin: 12/01/18 19:58 Dose: 12.5 mls/hr Potassium Chloride/Sodium Chloride (Normal Saline With 20 Meq Kcl) 1,000 mls @ 100 mls/hr IV ASDIRECTED [facility] Last Admin: 12/02/18 01:03 Dose: 100 mls/hr Potassium Chloride/Sodium Chloride (Normal Saline With 20 Meq Kcl) 500 mls @ 500 mls/hr IV ASDIRECTED [facility] Stop: 12/01/18 19:29 Last Admin: 12/01/18 18:47 Dose: 500 mls/hr Piperacillin Sod/Tazobactam (Sod 4.5 gm/ Sodium Chloride) 100 mls @ 25 mls/hr IV Q8H [facility] Last Admin: 12/06/18 01:18 Dose: 25 mls/hr Piperacillin Sod/Tazobactam (Sod 4.5 gm/ Sodium Chloride) 100 mls @ 200 mls/hr IV ONETIME ONE Stop: 12/01/18 19:14 Last Admin: 12/01/18 19:14 Dose: 200 mls/hr Dextrose/Sodium Chloride (Dextrose 5%-Normal Saline) 1,000 mls @ 100 mls/hr IV ASDIRECTED [facility] Last Admin: 12/02/18 05:46 Dose: 100 mls/hr Levofloxacin/Dextrose 750 mg/ (Premix) 150 mls @ 100 mls/hr IV ONETIME ONE Stop: 12/02/18 07:29 Last Admin: 12/02/18 08:46 Dose: Not Given Sodium Chloride (Normal Saline) 500 mls @ 999 mls/hr IV .BOLUS ONE Stop: 12/02/18 05:56 Last Admin: 12/02/18 05:45 Dose: 999 mls/hr Sodium Chloride (Normal Saline) Confirm Administered Dose 500 mls @ as directed .ROUTE .STK-MED ONE Stop: 12/02/18 05:45 Last Admin: 12/02/18 05:50 Dose: Not Given Norepinephrine Bitartrate 4 mg (/ Dextrose/Water) 250 mls @ 7.5 mls/hr IV TITRATE [facility]; Protocol Last Titration: 12/02/18 11:17 Dose: 0 mcg/min, 0 mls/hr Levofloxacin/Dextrose 750 mg/ (Premix) 150 mls @ 100 mls/hr IV ONETIME ONE Stop: 12/02/18 13:29 Last Admin: 12/02/18 12:15 Dose: 100 mls/hr Sodium Chloride (Normal Saline) 2,000 mls @ 999 mls/hr IV ONETIME ONE Stop: 12/02/18 10:42 Last Admin: 12/02/18 09:11 Dose: 999 mls/hr Potassium Chloride/Sodium Chloride (Normal Saline With 20 Meq Kcl) 1,000 mls @ 150 mls/hr IV ASDIRECTED [facility] Last Admin: 12/03/18 08:14 Dose: 150 mls/hr Dextrose/Sodium Chloride (Dextrose 5%-Normal Saline) 1,000 mls @ 150 mls/hr IV ASDIRECTED [facility] Last Admin: 12/02/18 22:32 Dose: 150 mls/hr Sodium Chloride (Normal Saline) 100 mls @ 60 mls/hr IV ASDIRECTED [facility] Last Admin: 12/02/18 14:44 Dose: 60 mls/hr Sodium Chloride (Normal Saline) 1,000 mls @ 999 mls/hr IV ONETIME ONE Stop: 12/02/18 15:18 Last Admin: 12/02/18 15:00 Dose: 999 mls/hr Levofloxacin/Dextrose 750 mg/ (Premix) 150 mls @ 100 mls/hr IV Q24H [facility] Levofloxacin/Dextrose 750 mg/ (Premix) 150 mls @ 100 mls/hr IV Q24H [facility] Last Admin: 12/05/18 15:11 Dose: 100 mls/hr Calcium Gluconate 1 gm/ Sodium (Chloride) 60 mls @ 120 mls/hr IV ONETIME ONE Stop: 12/03/18 15:29 Last Admin: 12/03/18 14:37 Dose: 100 mls/hr Sodium Chloride (Normal Saline) 1,000 mls @ 75 mls/hr IV ASDIRECTED [facility] Last Infusion: 12/04/18 18:14 Dose: 25 mls/hr Sodium Chloride (Normal Saline) 1,000 mls @ 25 mls/hr IV ASDIRECTED [facility] Last Admin: 12/04/18 18:15 Dose: 25 mls/hr Albumin Human (Flexbumin 25%) 12.5 gm in 50 mls @ 100 mls/hr IV ONETIME ONE Stop: 12/07/18 12:56 Last Admin: 12/07/18 13:05 Dose: 100 mls/hr Albumin Human (Flexbumin 25%) 12.5 gm in 50 mls @ 100 mls/hr IV ONETIME ONE Stop: 12/08/18 04:29 Last Admin: 12/08/18 03:03 Dose: 100 mls/hr Insulin Glargine (Lantus) 10 unit SUBCUT BID [facility] Last Admin: 12/07/18 20:50 Dose: 10 units Insulin Glargine (Lantus) 12 unit SUBCUT BID [facility] Insulin Human Lispro (Humalog) 0 unit SUBCUT Q6HR [facility]; Protocol Last Admin: 12/03/18 12:27 Dose: 9 unit Insulin Human Lispro (Humalog) 0 unit SUBCUT QIDACANDBED [facility]; Protocol Last Admin: 12/03/18 17:32 Dose: 9 units Insulin Human Lispro (Humalog) 0 unit SUBCUT Q6HR [facility]; Protocol Last Admin: 12/07/18 23:10 Dose: 1 units Iopamidol (Isovue-370 (76%)) 100 ml IV ONETIME ONE Stop: 12/02/18 07:40 Last Admin: 12/02/18 09:30 Dose: 100 ml Iopamidol (Isovue-370 (76%)) 100 ml IV ONETIME ONE Stop: 12/02/18 14:19 Last Admin: 12/02/18 14:44 Dose: 100 ml Lactulose (Cephulac) 60 gm NGTUBE ONETIME ONE Stop: 11/30/18 19:01 Last Admin: 11/30/18 19:52 Dose: 60 gm Lactulose (Cephulac) 60 gm PO ONETIME ONE Stop: 12/01/18 01:01 Last Admin: 12/01/18 01:00 Dose: 60 gm Lactulose (Cephulac) 45 gm PO Q6H [facility] Last Admin: 12/02/18 09:16 Dose: Not Given Lactulose (Cephulac) 30 gm PO BID [facility] Last Admin: 12/04/18 16:28 Dose: 30 gm Lactulose (Cephulac) 30 gm PO TID [facility] Last Admin: 12/05/18 15:14 Dose: 30 gm Lactulose (Cephulac) 20 gm PO BID [facility] Last Admin: 12/06/18 08:37 Dose: 20 gm Levofloxacin (Levaquin) 750 mg PO Q24H [facility] Last Admin: 12/07/18 10:05 Dose: 750 mg Lorazepam (Ativan) 1 mg IVPUSH Q6H PRN PRN Reason: restlessness Last Admin: 12/07/18 21:33 Dose: 1 mg Methylprednisolone Sodium Succinate (Solu-Medrol) 125 mg IVPUSH Q8H [facility] Stop: 12/04/18 06:01 Last Admin: 12/04/18 05:40 Dose: 125 mg Midazolam HCl (Versed 1 Mg/Ml) 5 mg IVPUSH ONETIME ONE Stop: 11/30/18 19:30 Last Admin: 11/30/18 19:32 Dose: 5 mg Modafinil (Provigil) 200 mg PO DAILY [facility] Stop: 12/04/18 07:30 Last Admin: 12/03/18 08:00 Dose: 200 mg Modafinil (Provigil) 100 mg PO ONETIME ONE Stop: 12/02/18 20:45 Last Admin: 12/02/18 21:10 Dose: 100 mg Modafinil (Provigil) 200 mg PO NOW STA Stop: 12/04/18 13:28 Last Admin: 12/04/18 15:15 Dose: 200 mg Modafinil (Provigil) 200 mg PO DAILY [facility] Last Admin: 12/09/18 11:55 Dose: Not Given Morphine Sulfate (Morphine) 1 mg IVPUSH ONETIME ONE Stop: 12/01/18 11:18 Last Admin: 12/01/18 11:37 Dose: 1 mg Morphine Sulfate (Morphine) 2 mg IVPUSH ONETIME ONE Stop: 12/01/18 16:46 Last Admin: 12/01/18 16:52 Dose: 2 mg Morphine Sulfate (Morphine) 2 mg IVPUSH Q4H PRN PRN Reason: Shortness of Breath Last Admin: 12/04/18 17:06 Dose: 2 mg Morphine Sulfate (Morphine) 1 mg IVPUSH ONETIME ONE Stop: 12/03/18 16:11 Last Admin: 12/03/18 16:24 Dose: 1 mg Morphine Sulfate (Morphine) 1 mg IVPUSH Q4H PRN PRN Reason: Shortness of Breath Last Admin: 12/07/18 20:56 Dose: 1 mg Neostigmine Methylsulfate (Neostigmine Methylsulfate) 0.5 mg IM Q6H [facility] Stop: 12/08/18 07:31 Last Admin: 12/08/18 09:43 Dose: 0.5 mg Racepinephrine (S-2 2.25%) 0.5 ml NEB Q4HRRT PRN PRN Reason: subglottic narrowing Racepinephrine (S-2 2.25%) 0.5 ml NEB TID [facility] Stop: 12/06/18 09:00 Last Admin: 12/05/18 20:23 Dose: 0.5 ml Racepinephrine (S-2 2.25%) 0.5 ml NEB Q4HRRT PRN PRN Reason: choking Last Admin: 12/06/18 10:14 Dose: 0.5 ml Racepinephrine (S-2 2.25%) 0.5 ml NEB ONETIME ONE Stop: 12/04/18 13:41 Last Admin: 12/04/18 13:40 Dose: 0.5 ml Rivaroxaban (Xarelto) 20 mg PO DAILY [facility] Last Admin: 12/05/18 12:37 Dose: Not Given Rivaroxaban (Xarelto) 20 mg PO ONETIME ONE Stop: 12/04/18 21:28 Last Admin: 12/04/18 22:32 Dose: 20 mg Sodium Chloride (Saline Flush) 10 ml FLUSH ONETIME ONE Stop: 12/02/18 07:40 Last Admin: 12/02/18 09:30 Dose: 10 ml Sodium Chloride (Sodium Chloride 0.9%) 0 ml INH TID [facility] Stop: 12/06/18 09:00 Last Admin: 12/06/18 10:15 Dose: 3 ml Sodium Chloride (Sodium Chloride 0.9%) 3 ml INH ASDIRECTED PRN PRN Reason: mix with racepinephrine neb Succinylcholine Chloride (Quelicin) 180 mg IV ONETIME ONE Stop: 11/30/18 18:46 Last Admin: 11/30/18 18:53 Dose: 180 mg - Exam General: Oriented (to place only), Lethargic, Other (Obese) HEENT: Pupils Equal, Pupils Reactive, Mucous Membr. Moist/[place] Neck: Supple Lungs: Normal Respiratory Effort, Crackles Cardiovascular: Regular Rate, Regular Rhythm GI/Abdominal Exam: Non-Tender, No Mass, Abnormal Bowel Sounds, Other (tight) (Male) Exam: Scrotal Swelling, Other (indwelling perez catheter) Back Exam: Decreased Range of Motion Extremities: Normal Inspection, Pedal Edema, Slow Capillary Refill, Limited Range of Motion Peripheral Pulses: 1+: Dorsalis Pedis (L), Dorsalis Pedis (R) Skin: Warm, Dry, Intact, Ecchymosis, Other (skin tags on bilateral axilla; obvious acanthosis nigricans) Neurological: Other (deferred: he is not appropriate due to confusion). 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 Bilirubin 4.4-->3.4 -->2.5-->1.9-->2.6-->4.0-->3.5-->3.1 - Has underlying liver failure - Risk factors: DM2 and Medications - Calculate Maddrey's score in AM - Resume IV Steroid Permissive Hyperglycemia in Type II DM, Stable - BS still in the in the 200s; Improved - He have his first meal since admission - Hold home PO meds until mental status improves -> resume as ordered - Accu-check Q6H with ISS coverage - Lantus 10 units subQ BID and Low dose Glucotrol 2.5 mg po BID - A1C 6.3 (improved from 7.4 on 08/01/19) Bibasilar Pneumonia w/ Small Pleural Effusion - CTA report reads parenchymal densities within both lung bases; R>>L - Continue IV Zosyn and Levaquin for pharmacy to dose; discontinue after total of 5 day treatment - IS as directed - Repeat Chest CT 12/05/2018 report reads improved right lower lobe parenchymal density with worsening bilateral patchy areas of alveolar density within both lungs. No mass is definitely appreciated on this exam. Small right sided pleural effusion. - Last dose antibiotic today - Repeat CRX in AM Generalized Edema with > 10 lbs Weight Gain - 122lbs on admission; 127lbs today - 2/2 Volume overload - Continue Bumex 0.5 mg IVP BID and low dose HCTZ BID - Albumin infusion due to low albumin state from liver cirrhosis Severe Colonic Ileus - CT scan report reads: Gaseous dilatation throughout the colon compatible with colonic ileus - He is has been mostly bedbound, also receiving PRN ativan and morphine - Abdomen remains distended but he is passing gas and liquid stool - Most recent abdominal x-ray shows severe ileus; repeat in AM - Prokinetic agents (reglan/erythromycin), lactulose, and Xifaxan - Rectal tube; patient removed NGT twice - Dr. Snow following Abnormal head CT compare to 11/30/18 -CT obtained in ED 11/13/18 * 1. Mild small vessel ischemic demyelination change. * 2. Questionable diminished density within the cerebellum on both sides, worse on the left side possibly due to additional small vessel ischemic demyelination change but difficult to completely exclude early ischemic infarct. MRI study with diffusion would be helpful to confirm or rule out this possibility. * 3. No acute intracranial hemorrhage or other abnormality is seen. -MRI obtained 11/13/18: * 1. Mild small vessel ischemic demyelination change within the subcortical white matter. * 2. No abnormal signal is seen within the cerebellar hemispheres and prior CT finding most likely represents B Scott artifact. * 3. No acute diffusion abnormalities are seen -CT Abdominal/Pelvis 12/02/2018 * 1. Cirrhotic change within the liver with splenomegaly * 2. Minimal pleural effusion seen around a portion of the liver * 3. Nothing acute is appreciated Resolved: S/p Hypomagnesemia - Magnesium-repace as needed - 2/2 inadequate intake S/P ETT on propofol drip, mild sedation; Nebs scheduled; NGT placed with low intermittent suction. - CXR q AM. HOB>40 degrees. - ABG looks good this AM; will try to extubate him - He is now off propofol drip S/p Subglottic Narrowing S/p Extubation - IV Steroid and Scheduled/PRN Racemic Epinephrine - Repeat CXR shows improved abnormal findings S/p Hypocalcemia - Ca 7.1--> 6.9-->7.3-->7.1-->8.3-->9.0 - 2/2 GI loss and NPO status - Replete and monitor S/p Rectal Bleed - Carries a hx/o Intestinal Varices - Hgb remains stable; will continue to monitor - Continue to avoid anticoagulant Chronic: Advanced Liver Disease from Long Hx/o ETOH Abuse Hx/o Esophageal Varices S/p TIPS Pancytopenia 2/2 Liver Disease, Platelet and Hgb at baseline Hypoalbuminemia, 2/2 Liver Disease Albumin level at baseline DM2, Accu-check QID with ISS (will increased level to high) Hyperbilirubinemia/Cholestasis, 2/2 Advanced Liver Disease Obesity with BMI of 38 GERD Chronic Back Pain GI bleeds from Intestinal Varices and Hemorrhoids Thrombocytopenia Hepatic encephalopathy Hypothyroidism Eczema Plan: He is worse today than yesterday Continue current treatment Routine AM Labs GI PPx: 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 Also less sedation with pain medications Again, spoke to his brother and another family member today and informed them about his clinical status and overall poor prognosis at this point. We re- addressed his code status but they wanted it him full code. Later, his brother Remi came back requesting transfer to [facility] and he be willing to be the liver donor for Kaden. He told us (Myself and Kasey Woodward), his uncle was once transferred to [facility] and received a liver transplant. His uncle remains alive to this date. We informed Remi, we will work on possible transfer to [place] in the morning. - Patient Instructions Diet: Diabetic Diet Activity: As Tolerated Notify Provider of: Fever, Increased Pain, Nausea and/or Vomiting - Discharge Plan *PRESCRIPTION DRUG MONITORING PROGRAM REVIEWED*: No *COPY OF PRESCRIPTION DRUG MONITORING REPORT IN PATIENT RAVI: No
[2018-12-10] MEDS: Bumetanide 1 MG/4 ML MDV IVPUSH SCH ×2 (08:36→21:50)
[2018-12-10] MEDS: Dexamethasone 4 MG/ML SDV IVPUSH SCH (08:39)
[2018-12-10] MEDS: Magnesium Oxide 400 MG Tab PO SCH ×2 (08:41→21:55)
[2018-12-10] MEDS: Spironolactone 25 MG Tab PO SCH ×2 (08:44→21:52)
[2018-12-10] MEDS: Famotidine 20 MG Tab PO SCH ×2 (08:45→21:55)
[2018-12-10] MEDS: Rifaximin 550 MG Tab PO SCH ×2 (08:45→21:55)
[2018-12-10] MEDS: Saccharomyces Boulardii (Probiotic) 250 MG Cap PO SCH ×2 (08:47→21:53)
[2018-12-10] MEDS: glipiZIDE 2.5 MG Tab.ER PO SCH ×2 (08:47→21:53)
[2018-12-10] MEDS: Insulin Glarg,Human.Rec.Analog 100 UNIT/ML ML SUBCUT SCH ×2 (09:10→21:54)
[2018-12-10] MEDS: Insulin Lispro 100 Units/ML 3 ML Vial SUBCUT SCH ×4 (09:11→22:38)
--- NOTE | 2018-12-10 15:37 | PCM.CONSN ---
- General Info Date of Service: 12/10/18 - Review of Systems Gastrointestinal: Reports: Other (distended ) Neurological: Reports: Other (obtunded ) - Patient Data Vitals - Most Recent: Last Vital Signs Temp 97.9 F 12/10/18 11:09 Pulse 89 12/10/18 11:09 Resp 20 12/10/18 11:09 BP 125/67 12/10/18 11:09 Pulse Ox 96 12/10/18 14:28 Weight - Most Recent: 127.516 kg I&O - Last 24 Hours: Intake & Output 12/09/18 12/10/18 12/10/18 23:59 07:59 15:59 Intake Total 1240 300 240 Output Total 655 820 425 Balance 585 -520 -185 Lab Results Last 24 Hours: Laboratory Results - last 24 hr 12/09/18 12/09/18 12/09/18 Range/Units 17:27 21:00 23:52 WBC (4.23-9.07) K/mm3 RBC (4.63-6.08) M/mm3 Hgb (13.7-17.5) gm/L Hct (40.1-51.0) % MCV (79.0-92.2) fl MCH (25.7-32.2) pg MCHC (32.2-35.5) g/dl RDW Std Deviation (35.1-43.9) fL Plt Count (163-337) K/mm3 MPV (9.4-12.3) fl Neut % (Auto) (34.0-67.9) % Lymph % (Auto) (21.8-53.1) % [place] % (Auto) (5.3-12.2) % Eos % (Auto) (0.8-7.0) Baso % (Auto) (0.1-1.2) % Neut # (Auto) (1.78-5.38) K/mm3 Lymph # (Auto) (1.32-3.57) K/mm3 [place] # (Auto) (0.30-0.82) K/mm3 Eos # (Auto) (0.04-0.54) K/mm3 Baso # (Auto) (0.01-0.08) K/mm3 Manual Slide Review PT (9.5-12.1) SECONDS INR Sodium (136-145) mEq/L Potassium (3.5-5.1) mEq/L Chloride (98-107) mEq/L Carbon Dioxide (21-32) mEq/L Anion Gap (5-15) BUN (7-18) mg/dL Creatinine (0.7-1.3) mg/dL Est Cr Clr Drug Dosing mL/min Estimated GFR (MDRD) (>60) mL/min BUN/Creatinine Ratio (14-18) Glucose (74-106) mg/dL POC Glucose 201 H 182 H 161 H (70-105) mg/dL Calcium (8.5-10.1) mg/dL Total Bilirubin (0.2-1.0) mg/dL AST (15-37) U/L ALT (16-63) U/L Alkaline Phosphatase (46-116) U/L Total Protein (6.4-8.2) g/dl Albumin (3.4-5.0) g/dl Globulin gm/dL Albumin/Globulin Ratio (1-2) 12/10/18 12/10/18 12/10/18 Range/Units 05:54 06:48 06:48 WBC 18.82 H (4.23-9.07) K/mm3 RBC 3.61 L (4.63-6.08) M/mm3 Hgb 11.8 L D (13.7-17.5) gm/L Hct 35.9 L (40.1-51.0) % MCV 99.4 H (79.0-92.2) fl MCH 32.7 H (25.7-32.2) pg MCHC 32.9 (32.2-35.5) g/dl RDW Std Deviation 60.4 H (35.1-43.9) fL Plt Count 64 L (163-337) K/mm3 MPV 11.0 (9.4-12.3) fl Neut % (Auto) 87.8 H (34.0-67.9) % Lymph % (Auto) 4.5 L (21.8-53.1) % [place] % (Auto) 7.1 (5.3-12.2) % Eos % (Auto) 0 L (0.8-7.0) Baso % (Auto) 0.2 (0.1-1.2) % Neut # (Auto) 16.53 H (1.78-5.38) K/mm3 Lymph # (Auto) 0.85 L (1.32-3.57) K/mm3 [place] # (Auto) 1.34 H (0.30-0.82) K/mm3 Eos # (Auto) 0.00 L (0.04-0.54) K/mm3 Baso # (Auto) 0.03 (0.01-0.08) K/mm3 Manual Slide Review Abnormal smear PT 19.4 H (9.5-12.1) SECONDS INR 1.80 Sodium (136-145) mEq/L Potassium (3.5-5.1) mEq/L Chloride (98-107) mEq/L Carbon Dioxide (21-32) mEq/L Anion Gap (5-15) BUN (7-18) mg/dL Creatinine (0.7-1.3) mg/dL Est Cr Clr Drug Dosing mL/min Estimated GFR (MDRD) (>60) mL/min BUN/Creatinine Ratio (14-18) Glucose (74-106) mg/dL POC Glucose 152 H (70-105) mg/dL Calcium (8.5-10.1) mg/dL Total Bilirubin (0.2-1.0) mg/dL AST (15-37) U/L ALT (16-63) U/L Alkaline Phosphatase (46-116) U/L Total Protein (6.4-8.2) g/dl Albumin (3.4-5.0) g/dl Globulin gm/dL Albumin/Globulin Ratio (1-2) 12/10/18 12/10/18 Range/Units 06:48 10:57 WBC (4.23-9.07) K/mm3 RBC (4.63-6.08) M/mm3 Hgb (13.7-17.5) gm/L Hct (40.1-51.0) % MCV (79.0-92.2) fl MCH (25.7-32.2) pg MCHC (32.2-35.5) g/dl RDW Std Deviation (35.1-43.9) fL Plt Count (163-337) K/mm3 MPV (9.4-12.3) fl Neut % (Auto) (34.0-67.9) % Lymph % (Auto) (21.8-53.1) % [place] % (Auto) (5.3-12.2) % Eos % (Auto) (0.8-7.0) Baso % (Auto) (0.1-1.2) % Neut # (Auto) (1.78-5.38) K/mm3 Lymph # (Auto) (1.32-3.57) K/mm3 [place] # (Auto) (0.30-0.82) K/mm3 Eos # (Auto) (0.04-0.54) K/mm3 Baso # (Auto) (0.01-0.08) K/mm3 Manual Slide Review PT (9.5-12.1) SECONDS INR Sodium 149 H (136-145) mEq/L Potassium 3.9 (3.5-5.1) mEq/L Chloride 115 H (98-107) mEq/L Carbon Dioxide 29 (21-32) mEq/L Anion Gap 8.9 (5-15) BUN 42 H (7-18) mg/dL Creatinine 1.1 (0.7-1.3) mg/dL Est Cr Clr Drug Dosing 74.66 mL/min Estimated GFR (MDRD) > 60 (>60) mL/min BUN/Creatinine Ratio 38.2 H (14-18) Glucose 165 H (74-106) mg/dL POC Glucose 166 H (70-105) mg/dL Calcium 9.7 (8.5-10.1) mg/dL Total Bilirubin 3.1 H (0.2-1.0) mg/dL AST 48 H (15-37) U/L ALT 47 (16-63) U/L Alkaline Phosphatase 112 (46-116) U/L Total Protein 5.9 L (6.4-8.2) g/dl Albumin 1.8 L (3.4-5.0) g/dl Globulin 4.1 gm/dL Albumin/Globulin Ratio 0.4 L (1-2) Med Orders - Current: Current Medications Hydrocodone Bitart/Acetaminophen ([place] 325-5 Mg) 1 tab PO Q6H PRN PRN Reason: Pain (moderate 4-6) Last Admin: 12/10/18 08:46 Dose: 1 tab Al Hydroxide/Mg Hydroxide (Mag-Al Plus) 30 ml PO Q4H PRN PRN Reason: Heartburn Last Admin: 12/07/18 20:54 Dose: 30 ml Albuterol/Ipratropium (Duoneb 3.0-0.5 Mg/3 Ml) 3 ml NEB Q8HRRT [facility] Last Admin: 12/10/18 14:28 Dose: 3 ml Albuterol/Ipratropium (Duoneb 3.0-0.5 Mg/3 Ml) 3 ml NEB Q4HRRT PRN PRN Reason: Wheezing Bumetanide (Bumex) 0.5 mg IVPUSH BID [facility] Last Admin: 12/10/18 08:36 Dose: 0.5 mg Dexamethasone (Dexamethasone) 4 mg IVPUSH DAILY [facility] Last Admin: 12/10/18 08:39 Dose: 4 mg Famotidine (Pepcid) 20 mg PO BID [facility] Last Admin: 12/10/18 08:45 Dose: 20 mg Glipizide (Glucotrol Xl) 2.5 mg PO BID [facility] Last Admin: 12/10/18 08:47 Dose: 2.5 mg Hydrochlorothiazide (Hydrochlorothiazide) 12.5 mg PO BIDDIURETIC [facility] Last Admin: 12/10/18 15:14 Dose: Not Given Insulin Glargine (Lantus) 10 unit SUBCUT BID [facility] Last Admin: 12/10/18 09:10 Dose: 10 units Insulin Human Lispro (Humalog) 0 unit SUBCUT QIDACANDBED [facility]; Protocol Last Admin: 12/10/18 13:13 Dose: Not Given Lactulose (Cephulac) 20 gm PO TID@0700,1400,2100 [facility] Last Admin: 12/10/18 15:14 Dose: Not Given Lorazepam (Ativan) 0.5 mg IVPUSH Q6H PRN PRN Reason: restlessness Last Admin: 12/09/18 00:17 Dose: 0.5 mg Magnesium Oxide (Magnesium Oxide) 800 mg PO BID [facility] Last Admin: 12/10/18 08:41 Dose: 800 mg Metoclopramide HCl (Reglan) 10 mg IVPUSH Q6H [facility] Last Admin: 12/10/18 11:05 Dose: 10 mg Morphine Sulfate (Morphine) 0.5 mg IVPUSH Q4H PRN PRN Reason: Shortness of Breath Rifaximin (Xifaxan) 550 mg PO BID [facility] Last Admin: 12/10/18 08:45 Dose: 550 mg Saccharomyces Boulardii (Florastor) 250 mg PO BID [facility] Last Admin: 12/10/18 08:47 Dose: 250 mg Sodium Chloride (Saline Flush) 10 ml FLUSH ASDIRECTED PRN PRN Reason: Keep Vein Open Last Admin: 12/07/18 10:05 Dose: 10 ml Sodium Chloride (Sodium Chloride 0.9%) 3 ml INH ASDIRECTED PRN PRN Reason: mix with racepinephrine neb Spironolactone (Aldactone) 12.5 mg PO BID [facility] Last Admin: 12/10/18 08:44 Dose: 12.5 mg Discontinued Medications Hydrocodone Bitart/Acetaminophen ([place] 325-5 Mg) 1 tab PO Q4H PRN PRN Reason: Pain (moderate 4-6) Last Admin: 12/07/18 08:55 Dose: 1 tab Bumetanide (Bumex) 1 mg IVPUSH ONETIME ONE Stop: 12/03/18 16:12 Last Admin: 12/03/18 16:25 Dose: 1 mg Bumetanide (Bumex) 1 mg IVPUSH ONETIME ONE Stop: 12/03/18 21:01 Last Admin: 12/03/18 21:16 Dose: 1 mg Bumetanide (Bumex) 1 mg IVPUSH ONETIME ONE Stop: 12/04/18 13:25 Last Admin: 12/04/18 14:36 Dose: 1 mg Caffeine (Caffeine) 200 mg PO DAILY [facility] Stop: 12/09/18 12:30 Last Admin: 12/09/18 11:55 Dose: Not Given Calcium Carbonate/Glycine (Calcium Carbonate) 1,200 mg PO ONETIME ONE Stop: 12/02/18 22:23 Last Admin: 12/02/18 22:42 Dose: 1,200 mg Calcium Carbonate/Glycine (Tums) 1,000 mg PO ONETIME ONE Stop: 12/04/18 21:33 Last Admin: 12/04/18 22:32 Dose: 1,000 mg Calcium Gluconate (Calcium Gluconate) 1 gm IVPUSH ONETIME ONE Stop: 12/03/18 14:10 Last Admin: 12/03/18 14:47 Dose: Not Given Dexamethasone (Dexamethasone) 4 mg IVPUSH Q12H [facility] Last Admin: 12/03/18 05:48 Dose: 4 mg Dexamethasone (Dexamethasone) 4 mg IVPUSH Q12H [facility] Stop: 12/05/18 09:30 Last Admin: 12/05/18 09:04 Dose: 4 mg Dexamethasone (Dexamethasone) 4 mg IVPUSH ONETIME ONE Stop: 12/08/18 17:33 Last Admin: 12/08/18 18:15 Dose: 4 mg Erythromycin (Jed-Tab) 250 mg PO Q8HR [facility] Last Admin: 12/03/18 05:41 Dose: 250 mg Etomidate (Amidate) 30 mg IVPUSH ONETIME ONE Stop: 11/30/18 18:39 Last Admin: 11/30/18 18:52 Dose: 30 mg Famotidine (Pepcid) 20 mg IVPUSH BID [facility] Last Admin: 12/09/18 09:41 Dose: 20 mg Famotidine (Pepcid) 20 mg IVPUSH ONETIME ONE Stop: 11/30/18 21:57 Last Admin: 11/30/18 22:26 Dose: 20 mg Furosemide (Lasix) 20 mg IVPUSH NOW ONE Stop: 12/01/18 23:01 Last Admin: 12/01/18 23:16 Dose: 20 mg Furosemide (Lasix) 40 mg PO DAILY [facility] Last Admin: 12/05/18 09:11 Dose: 40 mg Hydrochlorothiazide (Hydrochlorothiazide) 25 mg PO ONETIME ONE Stop: 12/07/18 12:27 Last Admin: 12/07/18 13:05 Dose: 25 mg Hydrochlorothiazide (Hydrochlorothiazide) 12.5 mg PO ONETIME ONE Stop: 12/07/18 21:01 Last Admin: 12/07/18 20:51 Dose: 12.5 mg Sodium Chloride (Normal Saline) 1,000 mls @ 125 mls/hr IV ASDIRECTED [facility] Last Admin: 11/30/18 16:55 Dose: 125 mls/hr Propofol (Diprivan 100 Ml) 100 mls @ 7.348 mls/hr IV TITRATE [facility]; Protocol Last Titration: 12/01/18 11:09 Dose: 0 mcg/kg/min, 0 mls/hr Propofol (Diprivan 100 Ml) Confirm Administered Dose 100 mls @ as directed .ROUTE .STK-MED ONE Stop: 11/30/18 19:02 Last Admin: 11/30/18 19:15 Dose: Not Given Dextrose/Sodium Chloride (Dextrose 5%-Normal Saline) 1,000 mls @ 100 mls/hr IV ASDIRECTED [facility] Last Admin: 12/01/18 09:20 Dose: 100 mls/hr Magnesium Sulfate 4 gm/ Premix 50 mls @ 12.5 mls/hr IV ONETIME ONE Stop: 12/01/18 13:28 Last Admin: 12/01/18 09:50 Dose: 12.5 mls/hr Magnesium Sulfate 4 gm/ Premix 50 mls @ 12.5 mls/hr IV ONETIME ONE Stop: 12/01/18 23:59 Last Admin: 12/01/18 19:58 Dose: 12.5 mls/hr Potassium Chloride/Sodium Chloride (Normal Saline With 20 Meq Kcl) 1,000 mls [facility] Last Admin: 12/02/18 01:03 Dose: 100 mls/hr Potassium Chloride/Sodium Chloride (Normal Saline With 20 Meq Kcl) 500 mls @ 500 [facility]ls[facility] Stop: 12/01/18 19:29 Last Admin: 12/01/18 18:47 Dose: 500 mls/hr Piperacillin Sod/Tazobactam (Sod 4.5 gm/ Sodium Chloride) 100 mls @ 25 mls/hr IV Q8H [facility] Last Admin: 12/06/18 01:18 Dose: 25 mls/hr Piperacillin Sod/Tazobactam (Sod 4.5 gm/ Sodium Chloride) 100 mls @ 200 mls/hr IV ONETIME ONE Stop: 12/01/18 19:14 Last Admin: 12/01/18 19:14 Dose: 200 mls/hr Dextrose/Sodium Chloride (Dextrose 5%-Normal Saline) 1,000 mls @ [facility] Last Admin: 12/02/18 05:46 Dose: 100 mls/hr Levofloxacin/Dextrose 750 mg/ (Premix) 150 mls @ 100 mls/hr IV ONETIME ONE Stop: 12/02/18 07:29 Last Admin: 12/02/18 08:46 Dose: Not Given Sodium Chloride (Normal Saline) 500 mls @ 999 mls/hr IV .BOLUS ONE Stop: 12/02/18 05:56 Last Admin: 12/02/18 05:45 Dose: 999 mls/hr Sodium Chloride (Normal Saline) Confirm Administered Dose 500 mls @ as directed .ROUTE .STK-MED ONE Stop: 12/02/18 05:45 Last Admin: 12/02/18 05:50 Dose: Not Given Norepinephrine Bitartrate 4 mg (/ Dextrose/Water) 250 mls @ 7.5 mls/hr IV TITRATE [facility]; Protocol Last Titration: 12/02/18 11:17 Dose: 0 mcg/min, 0 mls/hr Levofloxacin/Dextrose 750 mg/ (Premix) 150 mls @ 100 mls/hr IV ONETIME ONE Stop: 12/02/18 13:29 Last Admin: 12/02/18 12:15 Dose: 100 mls/hr Sodium Chloride (Normal Saline) 2,000 mls @ 999 mls/hr IV ONETIME ONE Stop: 12/02/18 10:42 Last Admin: 12/02/18 09:11 Dose: 999 mls/hr Potassium Chloride/Sodium Chloride (Normal Saline With 20 Meq Kcl) 1,000 mls @ 150 mls/hr IV ASDIRECTED [facility] Last Admin: 12/03/18 08:14 Dose: 150 mls/hr Dextrose/Sodium Chloride (Dextrose 5%-Normal Saline) 1,000 mls @ 150 mls/hr IV ASDIRECTED [facility] Last Admin: 12/02/18 22:32 Dose: 150 mls/hr Sodium Chloride (Normal Saline) 100 mls @ 60 mls/hr IV ASDIRECTED [facility] Last Admin: 12/02/18 14:44 Dose: 60 mls/hr Sodium Chloride (Normal Saline) 1,000 mls @ 999 mls/hr IV ONETIME ONE Stop: 12/02/18 15:18 Last Admin: 12/02/18 15:00 Dose: 999 mls/hr Levofloxacin/Dextrose 750 mg/ (Premix) 150 mls @ 100 mls/hr IV Q24H [facility] Levofloxacin/Dextrose 750 mg/ (Premix) 150 mls @ 100 mls/hr IV Q24H [facility] Last Admin: 12/05/18 15:11 Dose: 100 mls/hr Calcium Gluconate 1 gm/ Sodium (Chloride) 60 mls @ 120 mls/hr IV ONETIME ONE Stop: 12/03/18 15:29 Last Admin: 12/03/18 14:37 Dose: 100 mls/hr Sodium Chloride (Normal Saline) 1,000 mls @ 75 mls/hr IV ASDIRECTED [facility] Last Infusion: 12/04/18 18:14 Dose: 25 mls/hr Sodium Chloride (Normal Saline) 1,000 mls @ 25 mls/hr IV ASDIRECTED [facility] Last Admin: 12/04/18 18:15 Dose: 25 mls/hr Albumin Human (Flexbumin 25%) 12.5 gm in 50 mls @ 100 mls/hr IV ONETIME ONE Stop: 12/07/18 12:56 Last Admin: 12/07/18 13:05 Dose: 100 mls/hr Albumin Human (Flexbumin 25%) 12.5 gm in 50 mls @ 100 mls/hr IV ONETIME ONE Stop: 12/08/18 04:29 Last Admin: 12/08/18 03:03 Dose: 100 mls/hr Insulin Glargine (Lantus) 10 unit SUBCUT BID [facility] Last Admin: 12/07/18 20:50 Dose: 10 units Insulin Glargine (Lantus) 12 unit SUBCUT BID [facility] Insulin Human Lispro (Humalog) 0 unit SUBCUT Q6HR [facility]; Protocol Last Admin: 12/03/18 12:27 Dose: 9 unit Insulin Human Lispro (Humalog) 0 unit SUBCUT QIDACANDBED [facility]; Protocol Last Admin: 12/03/18 17:32 Dose: 9 units Insulin Human Lispro (Humalog) 0 unit SUBCUT Q6HR [facility]; Protocol Last Admin: 12/07/18 23:10 Dose: 1 units Iopamidol (Isovue-370 (76%)) 100 ml IV ONETIME ONE Stop: 12/02/18 07:40 Last Admin: 12/02/18 09:30 Dose: 100 ml Iopamidol (Isovue-370 (76%)) 100 ml IV ONETIME ONE Stop: 12/02/18 14:19 Last Admin: 12/02/18 14:44 Dose: 100 ml Lactulose (Cephulac) 60 gm NGTUBE ONETIME ONE Stop: 11/30/18 19:01 Last Admin: 11/30/18 19:52 Dose: 60 gm Lactulose (Cephulac) 60 gm PO ONETIME ONE Stop: 12/01/18 01:01 Last Admin: 12/01/18 01:00 Dose: 60 gm Lactulose (Cephulac) 45 gm PO Q6H [facility] Last Admin: 12/02/18 09:16 Dose: Not Given Lactulose (Cephulac) 30 gm PO BID [facility] Last Admin: 12/04/18 16:28 Dose: 30 gm Lactulose (Cephulac) 30 gm PO TID [facility] Last Admin: 12/05/18 15:14 Dose: 30 gm Lactulose (Cephulac) 20 gm PO BID [facility] Last Admin: 12/06/18 08:37 Dose: 20 gm Levofloxacin (Levaquin) 750 mg PO Q24H [facility] Last Admin: 12/07/18 10:05 Dose: 750 mg Lorazepam (Ativan) 1 mg IVPUSH Q6H PRN PRN Reason: restlessness Last Admin: 12/07/18 21:33 Dose: 1 mg Methylprednisolone Sodium Succinate (Solu-Medrol) 125 mg IVPUSH Q8H [facility] Stop: 12/04/18 06:01 Last Admin: 12/04/18 05:40 Dose: 125 mg Midazolam HCl (Versed 1 Mg/Ml) 5 mg IVPUSH ONETIME ONE Stop: 11/30/18 19:30 Last Admin: 11/30/18 19:32 Dose: 5 mg Modafinil (Provigil) 200 mg PO DAILY [facility] Stop: 12/04/18 07:30 Last Admin: 12/03/18 08:00 Dose: 200 mg Modafinil (Provigil) 100 mg PO ONETIME ONE Stop: 12/02/18 20:45 Last Admin: 12/02/18 21:10 Dose: 100 mg Modafinil (Provigil) 200 mg PO NOW STA Stop: 12/04/18 13:28 Last Admin: 12/04/18 15:15 Dose: 200 mg Modafinil (Provigil) 200 mg PO DAILY [facility] Last Admin: 12/09/18 11:55 Dose: Not Given Morphine Sulfate (Morphine) 1 mg IVPUSH ONETIME ONE Stop: 12/01/18 11:18 Last Admin: 12/01/18 11:37 Dose: 1 mg Morphine Sulfate (Morphine) 2 mg IVPUSH ONETIME ONE Stop: 12/01/18 16:46 Last Admin: 12/01/18 16:52 Dose: 2 mg Morphine Sulfate (Morphine) 2 mg IVPUSH Q4H PRN PRN Reason: Shortness of Breath Last Admin: 12/04/18 17:06 Dose: 2 mg Morphine Sulfate (Morphine) 1 mg IVPUSH ONETIME ONE Stop: 12/03/18 16:11 Last Admin: 12/03/18 16:24 Dose: 1 mg Morphine Sulfate (Morphine) 1 mg IVPUSH Q4H PRN PRN Reason: Shortness of Breath Last Admin: 12/07/18 20:56 Dose: 1 mg Neostigmine Methylsulfate (Neostigmine Methylsulfate) 0.5 mg IM Q6H [facility] Stop: 12/08/18 07:31 Last Admin: 12/08/18 09:43 Dose: 0.5 mg Racepinephrine (S-2 2.25%) 0.5 ml NEB Q4HRRT PRN PRN Reason: subglottic narrowing Racepinephrine (S-2 2.25%) 0.5 ml NEB TID [facility] Stop: 12/06/18 09:00 Last Admin: 12/05/18 20:23 Dose: 0.5 ml Racepinephrine (S-2 2.25%) 0.5 ml NEB Q4HRRT PRN PRN Reason: choking Last Admin: 12/06/18 10:14 Dose: 0.5 ml Racepinephrine (S-2 2.25%) 0.5 ml NEB ONETIME ONE Stop: 12/04/18 13:41 Last Admin: 12/04/18 13:40 Dose: 0.5 ml Rivaroxaban (Xarelto) 20 mg PO DAILY [facility] Last Admin: 12/05/18 12:37 Dose: Not Given Rivaroxaban (Xarelto) 20 mg PO ONETIME ONE Stop: 12/04/18 21:28 Last Admin: 12/04/18 22:32 Dose: 20 mg Sodium Chloride (Saline Flush) 10 ml FLUSH ONETIME ONE Stop: 12/02/18 07:40 Last Admin: 12/02/18 09:30 Dose: 10 ml Sodium Chloride (Sodium Chloride 0.9%) 0 ml INH TID [facility] Stop: 12/06/18 09:00 Last Admin: 04/27/19 10:15 Dose: 3 ml Sodium Chloride (Sodium Chloride 0.9%) 3 ml INH ASDIRECTED PRN PRN Reason: mix with racepinephrine neb Succinylcholine Chloride (Quelicin) 180 mg IV ONETIME ONE Stop: 11/30/18 18:46 Last Admin: 11/30/18 18:53 Dose: 180 mg - Exam GI/Abdominal Exam: Non-Tender, Distended Neurological: Other (obtunded difficult to wake ) Consult PN Assessment/Plan Procedures: Procedures ASSAY OF AMMONIA (01/08/18) ASSAY OF BLOOD OSMOLALITY (09/20/16) ASSAY OF CK (CPK) (05/31/17) ASSAY OF ETHANOL (02/20/14) ASSAY OF GGT (05/31/17) ASSAY OF LACTIC ACID (05/31/17) ASSAY OF LIPASE (07/22/16) ASSAY OF MAGNESIUM (12/25/17) ASSAY OF NATRIURETIC PEPTIDE (09/20/16) ASSAY OF TROPONIN QUANT (05/31/17) ASSAY OF URINE OSMOLALITY (07/22/16) ASSAY THYROID STIM HORMONE (05/31/17) BLOOD CULTURE FOR BACTERIA (05/31/17) BLOOD GASES ANY COMBINATION (05/31/17) BLOOD TYPING SEROLOGIC ABO (02/20/14) BLOOD TYPING SEROLOGIC RH(D) (02/20/14) C-REACTIVE PROTEIN (09/20/16) CHEST X-RAY 1 VIEW FRONTAL (05/31/17) CHEST X-RAY 2VW FRONTAL&LATL (01/27/16) COMPATIBILITY TEST ANTIGLOB (02/20/14) COMPLETE CBC W/AUTO DIFF WBC (12/25/17) COMPREHEN METABOLIC PANEL (12/25/17) CRITICAL CARE FIRST HOUR (05/31/17) CT HEAD/BRAIN W/O DYE (05/31/17) CT NECK SPINE W/O DYE (05/31/17) CULTURE OTHR SPECIMN AEROBIC (01/10/15) DRAINAGE OF SKIN ABSCESS (01/10/15) DRUG TEST PRSMV INSTRMNT (11/06/17) ELECTROCARDIOGRAM TRACING (05/31/17) EMERGENCY DEPT VISIT (09/20/16) EMERGENCY DEPT VISIT (03/03/16) EMERGENCY DEPT VISIT (01/27/16) EMERGENCY DEPT VISIT (01/10/15) EMERGENCY DEPT VISIT (03/26/14) EMERGENCY DEPT VISIT (02/20/14) FIBRIN DEGRADATION QUANT (05/31/17) GLYCOSYLATED HEMOGLOBIN TEST (10/16/17) HEPATIC FUNCTION PANEL (12/01/15) HYDRATE IV INFUSION ADD-ON (01/27/16) HYDRATION IV INFUSION INIT (09/20/16) INSERT EMERGENCY AIRWAY (05/31/17) INSERT TEMP BLADDER CATH (05/31/17) LACTATE (LD) (LDH) ENZYME (05/31/17) LIPID PANEL (10/16/17) METABOLIC PANEL TOTAL CA (04/03/17) PROTHROMBIN TIME (10/16/17) RBC ANTIBODY SCREEN (02/20/14) RBC SED RATE AUTOMATED (01/10/15) ROUTINE VENIPUNCTURE (12/25/17) THER/PROPH/DIAG INJ IV PUSH (05/31/17) THER/PROPH/DIAG INJ SC/IM (09/20/16) THER/PROPH/DIAG IV INF ADDON (05/31/17) THER/PROPH/DIAG IV INF INIT (05/31/17) THROMBOPLASTIN TIME PARTIAL (05/31/17) TX/PRO/DX INJ NEW DRUG ADDON (02/20/14) TX/PRO/DX INJ SAME DRUG DIRECTOR INDUSTRIAL RELATIONS (05/31/17) UR ALBUMIN QUANTITATIVE (10/16/17) UR ALBUMIN SEMIQUANTITATIVE (11/23/15) URINALYSIS AUTO W/O SCOPE (11/06/17) URINALYSIS AUTO W/SCOPE (05/31/17) WITHDRAWAL OF ARTERIAL BLOOD (05/31/17) X-RAY EXAM OF KNEE 3 (01/10/15) Problem List Initiated/Reviewed/Updated: Yes My Orders Last 24 Hours: My Active Orders 12/09/18 15:40 Consult to Janitorial Manager [CONS] Routine Plan: pt stable about the same no change in treatment LEDY
[2018-12-11] MEDS: Metoclopramide 10 MG/2 ML SDV IVPUSH SCH ×3 (06:17→18:00)
[2018-12-11] MEDS: Lactulose Soln 10 GM/15 ML 30 ML UD Cup PO SCH ×3 (06:19→13:00)
[2018-12-11] MEDS: Hydrochlorothiazide 12.5 MG Cap PO SCH ×2 (06:19→13:00)
[2018-12-11] MEDS: Albuterol/Ipratropium 3.0-0.5 MG/3 ML Neb Soln NEB SCH ×2 (06:24→13:03)
[2018-12-11] MEDS: Insulin Lispro 100 Units/ML 3 ML Vial SUBCUT SCH ×2 (08:58→12:24)
[2018-12-11] MEDS: Spironolactone 25 MG Tab PO SCH (08:59)
[2018-12-11] MEDS: glipiZIDE 2.5 MG Tab.ER PO SCH (09:00)
[2018-12-11] MEDS: Famotidine 20 MG Tab PO SCH (09:00)
[2018-12-11] MEDS: Magnesium Oxide 400 MG Tab PO SCH (09:00)
[2018-12-11] MEDS: Saccharomyces Boulardii (Probiotic) 250 MG Cap PO SCH (09:00)
[2018-12-11] MEDS: Rifaximin 550 MG Tab PO SCH (09:01)
[2018-12-11] MEDS: Insulin Glarg,Human.Rec.Analog 100 UNIT/ML ML SUBCUT SCH (09:01)
--- NOTE | 2018-12-11 09:02 | PCM.PN ---
- General Info Date of Service: 12/11/18 Admission Dx/Problem (Free Text): Admission Diagnosis/Problem Admission Diagnosis/Problem Cirrhosis of liver Subjective Update: Follow Up Functional Status: Reports: Pain Controlled. Denies: New Symptoms - Review of Systems General: Denies: Fever, Chills HEENT: Reports: No Symptoms Pulmonary: Reports: Shortness of Breath Cardiovascular: Reports: No Symptoms Gastrointestinal: Denies: Abdominal Pain, Nausea, Vomiting Psychiatric: Reports: Confusion Systems Review Comment:: Unresponsive and Difficult to Arouse - Patient Data Vitals - Most Recent: Last Vital Signs Temp 36.1 C 12/11/18 07:54 Pulse 83 12/11/18 07:54 Resp 14 12/11/18 07:54 BP 117/61 12/11/18 07:54 Pulse Ox 93 L 12/11/18 07:54 Weight - Most Recent: 127.148 kg I&O - Last 24 Hours: Intake & Output 12/10/18 12/11/18 12/11/18 22:59 06:59 14:59 Intake Total 0 0 Output Total 515 570 Balance -515 -570 Lab Results Last 24 Hours: Laboratory Results - last 24 hr 12/10/18 12/10/18 12/10/18 Range/Units 06:48 10:57 17:14 WBC (4.23-9.07) K/mm3 RBC (4.63-6.08) M/mm3 Hgb (13.7-17.5) gm/L Hct (40.1-51.0) % MCV (79.0-92.2) fl MCH (25.7-32.2) pg MCHC (32.2-35.5) g/dl RDW Std Deviation (35.1-43.9) fL Plt Count (163-337) K/mm3 MPV (9.4-12.3) fl Neut % (Auto) (34.0-67.9) % Lymph % (Auto) (21.8-53.1) % [place] % (Auto) (5.3-12.2) % Eos % (Auto) (0.8-7.0) Baso % (Auto) (0.1-1.2) % Neut # (Auto) (1.78-5.38) K/mm3 Lymph # (Auto) (1.32-3.57) K/mm3 Len[place] # (Auto) (0.30-0.82) K/mm3 Eos # (Auto) (0.04-0.54) K/mm3 Baso # (Auto) (0.01-0.08) K/mm3 Manual Slide Review PT (9.5-12.1) SECONDS INR Sodium 149 H (136-145) mEq/L Potassium 3.9 (3.5-5.1) mEq/L Chloride 115 H (98-107) mEq/L Carbon Dioxide 29 (21-32) mEq/L Anion Gap 8.9 (5-15) BUN 42 H (7-18) mg/dL Creatinine 1.1 (0.7-1.3) mg/dL Est Cr Clr Drug Dosing 74.66 mL/min Estimated GFR (MDRD) > 60 (>60) mL/min BUN/Creatinine Ratio 38.2 H (14-18) Glucose 165 H (74-106) mg/dL POC Glucose 166 H 194 H (70-105) mg/dL Calcium 9.7 (8.5-10.1) mg/dL Magnesium (1.8-2.4) mg/dl Total Bilirubin 3.1 H (0.2-1.0) mg/dL AST 48 H (15-37) U/L ALT 47 (16-63) U/L Alkaline Phosphatase 112 (46-116) U/L Ammonia (11-32) umol/L Total Protein 5.9 L (6.4-8.2) g/dl Albumin 1.8 L (3.4-5.0) g/dl Globulin 4.1 gm/dL Albumin/Globulin Ratio 0.4 L (1-2) 12/10/18 12/11/18 12/11/18 Range/Units 21:49 05:30 05:30 WBC 19.92 H (4.23-9.07) K/mm3 RBC 3.58 L (4.63-6.08) M/mm3 Hgb 11.9 L (13.7-17.5) gm/L Hct 35.9 L (40.1-51.0) % MCV 100.3 H (79.0-92.2) fl MCH 33.2 H (25.7-32.2) pg MCHC 33.1 (32.2-35.5) g/dl RDW Std Deviation 62.2 H (35.1-43.9) fL Plt Count 44 L (163-337) K/mm3 MPV 10.2 (9.4-12.3) fl Neut % (Auto) 88.7 H (34.0-67.9) % Lymph % (Auto) 4.4 L (21.8-53.1) % Lenoir % (Auto) 6.5 (5.3-12.2) % Eos % (Auto) 0 L (0.8-7.0) Baso % (Auto) 0.1 (0.1-1.2) % Neut # (Auto) 17.67 H (1.78-5.38) K/mm3 Lymph # (Auto) 0.88 L (1.32-3.57) K/mm3 [place] # (Auto) 1.30 H (0.30-0.82) K/mm3 Eos # (Auto) 0.00 L (0.04-0.54) K/mm3 Baso # (Auto) 0.02 (0.01-0.08) K/mm3 Manual Slide Review Abnormal smear PT 21.9 H (9.5-12.1) SECONDS INR 2.04 Sodium (136-145) mEq/L Potassium (3.5-5.1) mEq/L Chloride (98-107) mEq/L Carbon Dioxide (21-32) mEq/L Anion Gap (5-15) BUN (7-18) mg/dL Creatinine (0.7-1.3) mg/dL Est Cr Clr Drug Dosing mL/min Estimated GFR (MDRD) (>60) mL/min BUN/Creatinine Ratio (14-18) Glucose (74-106) mg/dL POC Glucose 204 H (70-105) mg/dL Calcium (8.5-10.1) mg/dL Magnesium (1.8-2.4) mg/dl Total Bilirubin (0.2-1.0) mg/dL AST (15-37) U/L ALT (16-63) U/L Alkaline Phosphatase (46-116) U/L Ammonia (11-32) umol/L Total Protein (6.4-8.2) g/dl Albumin (3.4-5.0) g/dl Globulin gm/dL Albumin/Globulin Ratio (1-2) 12/11/18 12/11/18 12/11/18 Range/Units 05:30 05:30 06:16 WBC (4.23-9.07) K/mm3 RBC (4.63-6.08) M/mm3 Hgb (13.7-17.5) gm/L Hct (40.1-51.0) % MCV (79.0-92.2) fl MCH (25.7-32.2) pg MCHC (32.2-35.5) g/dl RDW Std Deviation (35.1-43.9) fL Plt Count (163-337) K/mm3 MPV (9.4-12.3) fl Neut % (Auto) (34.0-67.9) % Lymph % (Auto) (21.8-53.1) % [place] % (Auto) (5.3-12.2) % Eos % (Auto) (0.8-7.0) Baso % (Auto) (0.1-1.2) % Neut # (Auto) (1.78-5.38) K/mm3 Lymph # (Auto) (1.32-3.57) K/mm3 [place] # (Auto) (0.30-0.82) K/mm3 Eos # (Auto) (0.04-0.54) K/mm3 Baso # (Auto) (0.01-0.08) K/mm3 Manual Slide Review PT (9.5-12.1) SECONDS INR Sodium 148 H (136-145) mEq/L Potassium 4.4 (3.5-5.1) mEq/L Chloride 115 H (98-107) mEq/L Carbon Dioxide 27 (21-32) mEq/L Anion Gap 10.4 (5-15) BUN 61 H (7-18) mg/dL Creatinine 1.4 H (0.7-1.3) mg/dL Est Cr Clr Drug Dosing 58.66 mL/min Estimated GFR (MDRD) 52 (>60) mL/min BUN/Creatinine Ratio 43.6 H (14-18) Glucose 178 H (74-106) mg/dL POC Glucose 179 H (70-105) mg/dL Calcium 9.2 (8.5-10.1) mg/dL Magnesium 2.8 H (1.8-2.4) mg/dl Total Bilirubin 3.2 H (0.2-1.0) mg/dL AST 33 (15-37) U/L ALT 39 (16-63) U/L Alkaline Phosphatase 109 (46-116) U/L Ammonia 354 H (11-32) umol/L Total Protein 5.4 L (6.4-8.2) g/dl Albumin 1.6 L (3.4-5.0) g/dl Globulin 3.8 gm/dL Albumin/Globulin Ratio 0.4 L (1-2) Med Orders - Current: Current Medications Al Hydroxide/Mg Hydroxide (Mag-Al Plus) 30 ml PO Q4H PRN PRN Reason: Heartburn Last Admin: 12/07/18 20:54 Dose: 30 ml Albuterol/Ipratropium (Duoneb 3.0-0.5 Mg/3 Ml) 3 ml NEB Q8HRRT [facility] Last Admin: 12/11/18 06:24 Dose: 3 ml Albuterol/Ipratropium (Duoneb 3.0-0.5 Mg/3 Ml) 3 ml NEB Q4HRRT PRN PRN Reason: Wheezing Bumetanide (Bumex) 0.5 mg IVPUSH BID [facility] Last Admin: 12/10/18 21:50 Dose: 0.5 mg Dexamethasone (Dexamethasone) 4 mg IVPUSH DAILY [facility] Last Admin: 12/10/18 08:39 Dose: 4 mg Famotidine (Pepcid) 20 mg PO BID [facility] Last Admin: 12/11/18 09:00 Dose: Not Given Glipizide (Glucotrol Xl) 2.5 mg PO BID [facility] Last Admin: 12/11/18 09:00 Dose: Not Given Hydrochlorothiazide (Hydrochlorothiazide) 12.5 mg PO BIDDIURETIC [facility] Last Admin: 12/11/18 06:19 Dose: Not Given Insulin Glargine (Lantus) 10 unit SUBCUT BID [facility] Last Admin: 12/11/18 09:01 Dose: Not Given Insulin Human Lispro (Humalog) 0 unit SUBCUT QIDACANDBED [facility]; Protocol Last Admin: 12/11/18 08:58 Dose: Not Given Lactulose (Cephulac) 20 gm PO TID@0700,1400,2100 [facility] Last Admin: 12/11/18 06:19 Dose: Not Given Lorazepam (Ativan) 0.5 mg IVPUSH Q6H PRN PRN Reason: restlessness Last Admin: 12/09/18 00:17 Dose: 0.5 mg Magnesium Oxide (Magnesium Oxide) 800 mg PO BID [facility] Last Admin: 12/11/18 09:00 Dose: Not Given Metoclopramide HCl (Reglan) 10 mg IVPUSH Q6H [facility] Last Admin: 12/11/18 06:17 Dose: 10 mg Morphine Sulfate (Morphine) 0.5 mg IVPUSH Q4H PRN PRN Reason: Shortness of Breath Rifaximin (Xifaxan) 550 mg PO BID [facility] Last Admin: 12/11/18 09:01 Dose: Not Given Saccharomyces Boulardii (Florastor) 250 mg PO BID [facility] Last Admin: 12/11/18 09:00 Dose: Not Given Sodium Chloride (Saline Flush) 10 ml FLUSH ASDIRECTED PRN PRN Reason: Keep Vein Open Last Admin: 12/07/18 10:05 Dose: 10 ml Sodium Chloride (Sodium Chloride 0.9%) 3 ml INH ASDIRECTED PRN PRN Reason: mix with racepinephrine neb Spironolactone (Aldactone) 12.5 mg PO BID [facility] Last Admin: 12/11/18 08:59 Dose: Not Given Discontinued Medications Hydrocodone Bitart/Acetaminophen (Elton 325-5 Mg) 1 tab PO Q4H PRN PRN Reason: Pain (moderate 4-6) Last Admin: 12/07/18 08:55 Dose: 1 tab Hydrocodone Bitart/Acetaminophen (Elton 325-5 Mg) 1 tab PO Q6H PRN PRN Reason: Pain (moderate 4-6) Last Admin: 12/10/18 08:46 Dose: 1 tab Bumetanide (Bumex) 1 mg IVPUSH ONETIME ONE Stop: 12/03/18 16:12 Last Admin: 12/03/18 16:25 Dose: 1 mg Bumetanide (Bumex) 1 mg IVPUSH ONETIME ONE Stop: 12/03/18 21:01 Last Admin: 12/03/18 21:16 Dose: 1 mg Bumetanide (Bumex) 1 mg IVPUSH ONETIME ONE Stop: 12/04/18 13:25 Last Admin: 12/04/18 14:36 Dose: 1 mg Caffeine (Caffeine) 200 mg PO DAILY [facility] Stop: 12/09/18 12:30 Last Admin: 12/09/18 11:55 Dose: Not Given Calcium Carbonate/Glycine (Calcium Carbonate) 1,200 mg PO ONETIME ONE Stop: 12/02/18 22:23 Last Admin: 12/02/18 22:42 Dose: 1,200 mg Calcium Carbonate/Glycine (Tums) 1,000 mg PO ONETIME ONE Stop: 12/04/18 21:33 Last Admin: 12/04/18 22:32 Dose: 1,000 mg Calcium Gluconate (Calcium Gluconate) 1 gm IVPUSH ONETIME ONE Stop: 12/03/18 14:10 Last Admin: 12/03/18 14:47 Dose: Not Given Dexamethasone (Dexamethasone) 4 mg IVPUSH Q12H [facility] Last Admin: 12/03/18 05:48 Dose: 4 mg Dexamethasone (Dexamethasone) 4 mg IVPUSH Q12H [facility] Stop: 12/05/18 09:30 Last Admin: 12/05/18 09:04 Dose: 4 mg Dexamethasone (Dexamethasone) 4 mg IVPUSH ONETIME ONE Stop: 12/08/18 17:33 Last Admin: 12/08/18 18:15 Dose: 4 mg Erythromycin (Jed-Tab) 250 mg PO Q8HR [facility] Last Admin: 12/03/18 05:41 Dose: 250 mg Etomidate (Amidate) 30 mg IVPUSH ONETIME ONE Stop: 11/30/18 18:39 Last Admin: 11/30/18 18:52 Dose: 30 mg Famotidine (Pepcid) 20 mg IVPUSH BID [facility] Last Admin: 12/09/18 09:41 Dose: 20 mg Famotidine (Pepcid) 20 mg IVPUSH ONETIME ONE Stop: 11/30/18 21:57 Last Admin: 11/30/18 22:26 Dose: 20 mg Furosemide (Lasix) 20 mg IVPUSH NOW ONE Stop: 12/01/18 23:01 Last Admin: 12/01/18 23:16 Dose: 20 mg Furosemide (Lasix) 40 mg PO DAILY [facility] Last Admin: 12/05/18 09:11 Dose: 40 mg Hydrochlorothiazide (Hydrochlorothiazide) 25 mg PO ONETIME ONE Stop: 12/07/18 12:27 Last Admin: 12/07/18 13:05 Dose: 25 mg Hydrochlorothiazide (Hydrochlorothiazide) 12.5 mg PO ONETIME ONE Stop: 12/07/18 21:01 Last Admin: 12/07/18 20:51 Dose: 12.5 mg Sodium Chloride (Normal Saline) 1,000 mls @ 125 mls/hr IV ASDIRECTED DHIRAJ Last Admin: 11/30/18 16:55 Dose: 125 mls/hr Propofol (Diprivan 100 Ml) 100 mls @ 7.348 mls/hr IV TITRATE DHIRAJ; Protocol Last Titration: 12/01/18 11:09 Dose: 0 mcg/kg/min, 0 mls/hr Propofol (Diprivan 100 Ml) Confirm Administered Dose 100 mls @ as directed .ROUTE .STK-MED ONE Stop: 11/30/18 19:02 Last Admin: 11/30/18 19:15 Dose: Not Given Dextrose/Sodium Chloride (Dextrose 5%-Normal Saline) 1,000 mls @ 100 mls/hr IV ASDIRECTED DHIRAJ Last Admin: 12/01/18 09:20 Dose: 100 mls/hr Magnesium Sulfate 4 gm/ Premix 50 mls @ 12.5 mls/hr IV ONETIME ONE Stop: 12/01/18 13:28 Last Admin: 12/01/18 09:50 Dose: 12.5 mls/hr Magnesium Sulfate 4 gm/ Premix 50 mls @ 12.5 mls/hr IV ONETIME ONE Stop: 12/01/18 23:59 Last Admin: 12/01/18 19:58 Dose: 12.5 mls/hr Potassium Chloride/Sodium Chloride (Normal Saline With 20 Meq Kcl) 1,000 mls @ 100 mls/hr IV ASDIRECTED DHIRAJ Last Admin: 12/02/18 01:03 Dose: 100 mls/hr Potassium Chloride/Sodium Chloride (Normal Saline With 20 Meq Kcl) 500 mls @ 500 mls/hr IV ASDIRECTED DHIRAJ Stop: 12/01/18 19:29 Last Admin: 12/01/18 18:47 Dose: 500 mls/hr Piperacillin Sod/Tazobactam (Sod 4.5 gm/ Sodium Chloride) 100 mls @ 25 mls/hr IV Q8H DHIRAJ Last Admin: 12/06/18 01:18 Dose: 25 mls/hr Piperacillin Sod/Tazobactam (Sod 4.5 gm/ Sodium Chloride) 100 mls @ 200 mls/hr IV ONETIME ONE Stop: 12/01/18 19:14 Last Admin: 12/01/18 19:14 Dose: 200 mls/hr Dextrose/Sodium Chloride (Dextrose 5%-Normal Saline) 1,000 mls @ 100 mls/hr IV ASDIRECTED DHIRAJ Last Admin: 12/02/18 05:46 Dose: 100 mls/hr Levofloxacin/Dextrose 750 mg/ (Premix) 150 mls @ 100 mls/hr IV ONETIME ONE Stop: 12/02/18 07:29 Last Admin: 12/02/18 08:46 Dose: Not Given Sodium Chloride (Normal Saline) 500 mls @ 999 mls/hr IV .BOLUS ONE Stop: 12/02/18 05:56 Last Admin: 12/02/18 05:45 Dose: 999 mls/hr Sodium Chloride (Normal Saline) Confirm Administered Dose 500 mls @ as directed .ROUTE .STK-MED ONE Stop: 12/02/18 05:45 Last Admin: 12/02/18 05:50 Dose: Not Given Norepinephrine Bitartrate 4 mg (/ Dextrose/Water) 250 mls @ 7.5 mls/hr IV TITRATE DHIRAJ; Protocol Last Titration: 12/02/18 11:17 Dose: 0 mcg/min, 0 mls/hr Levofloxacin/Dextrose 750 mg/ (Premix) 150 mls @ 100 mls/hr IV ONETIME ONE Stop: 12/02/18 13:29 Last Admin: 12/02/18 12:15 Dose: 100 mls/hr Sodium Chloride (Normal Saline) 2,000 mls @ 999 mls/hr IV ONETIME ONE Stop: 12/02/18 10:42 Last Admin: 12/02/18 09:11 Dose: 999 mls/hr Potassium Chloride/Sodium Chloride (Normal Saline With 20 Meq Kcl) 1,000 mls @ 150 mls/hr IV ASDIRECTED DHIRAJ Last Admin: 12/03/18 08:14 Dose: 150 mls/hr Dextrose/Sodium Chloride (Dextrose 5%-Normal Saline) 1,000 mls @ 150 mls/hr IV ASDIRECTED DHIRAJ Last Admin: 12/02/18 22:32 Dose: 150 mls/hr Sodium Chloride (Normal Saline) 100 mls @ 60 mls/hr IV ASDIRECTED [facility] Last Admin: 12/02/18 14:44 Dose: 60 mls/hr Sodium Chloride (Normal Saline) 1,000 mls @ 999 mls/hr IV ONETIME ONE Stop: 12/02/18 15:18 Last Admin: 12/02/18 15:00 Dose: 999 mls/hr Levofloxacin/Dextrose 750 mg/ (Premix) 150 mls @ 100 mls/hr IV Q24H DHIRAJ Levofloxacin/Dextrose 750 mg/ (Premix) 150 mls @ 100 mls/hr IV Q24H [facility] Last Admin: 12/05/18 15:11 Dose: 100 mls/hr Calcium Gluconate 1 gm/ Sodium (Chloride) 60 mls @ 120 mls/hr IV ONETIME ONE Stop: 12/03/18 15:29 Last Admin: 12/03/18 14:37 Dose: 100 mls/hr Sodium Chloride (Normal Saline) 1,000 mls @ 75 mls/hr IV ASDIRECTED [facility] Last Infusion: 12/04/18 18:14 Dose: 25 mls/hr Sodium Chloride (Normal Saline) 1,000 mls @ 25 mls/hr IV ASDIRECTED [facility] Last Admin: 12/04/18 18:15 Dose: 25 mls/hr Albumin Human (Flexbumin 25%) 12.5 gm in 50 mls @ 100 mls/hr IV ONETIME ONE Stop: 12/07/18 12:56 Last Admin: 12/07/18 13:05 Dose: 100 mls/hr Albumin Human (Flexbumin 25%) 12.5 gm in 50 mls @ 100 mls/hr IV ONETIME ONE Stop: 12/08/18 04:29 Last Admin: 12/08/18 03:03 Dose: 100 mls/hr Erythromycin Lactobionate 500 (mg/ Sodium Chloride) 100 mls @ 100 mls/hr IV Q6H [facility] Last Admin: 12/10/18 22:37 Dose: Not Given Insulin Glargine (Lantus) 10 unit SUBCUT BID [facility] Last Admin: 12/07/18 20:50 Dose: 10 units Insulin Glargine (Lantus) 12 unit SUBCUT BID [facility] Insulin Human Lispro (Humalog) 0 unit SUBCUT Q6HR [facility]; Protocol Last Admin: 12/03/18 12:27 Dose: 9 unit Insulin Human Lispro (Humalog) 0 unit SUBCUT QIDACANDBED [facility]; Protocol Last Admin: 12/03/18 17:32 Dose: 9 units Insulin Human Lispro (Humalog) 0 unit SUBCUT Q6HR [facility]; Protocol Last Admin: 12/07/18 23:10 Dose: 1 units Iopamidol (Isovue-370 (76%)) 100 ml IV ONETIME ONE Stop: 12/02/18 07:40 Last Admin: 12/02/18 09:30 Dose: 100 ml Iopamidol (Isovue-370 (76%)) 100 ml IV ONETIME ONE Stop: 12/02/18 14:19 Last Admin: 12/02/18 14:44 Dose: 100 ml Lactulose (Cephulac) 60 gm NGTUBE ONETIME ONE Stop: 11/30/18 19:01 Last Admin: 11/30/18 19:52 Dose: 60 gm Lactulose (Cephulac) 60 gm PO ONETIME ONE Stop: 12/01/18 01:01 Last Admin: 12/01/18 01:00 Dose: 60 gm Lactulose (Cephulac) 45 gm PO Q6H [facility] Last Admin: 12/02/18 09:16 Dose: Not Given Lactulose (Cephulac) 30 gm PO BID [facility] Last Admin: 12/04/18 16:28 Dose: 30 gm Lactulose (Cephulac) 30 gm PO TID [facility] Last Admin: 12/05/18 15:14 Dose: 30 gm Lactulose (Cephulac) 20 gm PO BID [facility] Last Admin: 12/06/18 08:37 Dose: 20 gm Levofloxacin (Levaquin) 750 mg PO Q24H [facility] Last Admin: 12/07/18 10:05 Dose: 750 mg Lorazepam (Ativan) 1 mg IVPUSH Q6H PRN PRN Reason: restlessness Last Admin: 12/07/18 21:33 Dose: 1 mg Methylprednisolone Sodium Succinate (Solu-Medrol) 125 mg IVPUSH Q8H DHIRAJ Stop: 12/04/18 06:01 Last Admin: 12/04/18 05:40 Dose: 125 mg Midazolam HCl (Versed 1 Mg/Ml) 5 mg IVPUSH ONETIME ONE Stop: 11/30/18 19:30 Last Admin: 11/30/18 19:32 Dose: 5 mg Modafinil (Provigil) 200 mg PO DAILY DHIRAJ Stop: 12/04/18 07:30 Last Admin: 12/03/18 08:00 Dose: 200 mg Modafinil (Provigil) 100 mg PO ONETIME ONE Stop: 12/02/18 20:45 Last Admin: 12/02/18 21:10 Dose: 100 mg Modafinil (Provigil) 200 mg PO NOW STA Stop: 12/04/18 13:28 Last Admin: 12/04/18 15:15 Dose: 200 mg Modafinil (Provigil) 200 mg PO DAILY [facility] Last Admin: 12/09/18 11:55 Dose: Not Given Morphine Sulfate (Morphine) 1 mg IVPUSH ONETIME ONE Stop: 12/01/18 11:18 Last Admin: 12/01/18 11:37 Dose: 1 mg Morphine Sulfate (Morphine) 2 mg IVPUSH ONETIME ONE Stop: 12/01/18 16:46 Last Admin: 12/01/18 16:52 Dose: 2 mg Morphine Sulfate (Morphine) 2 mg IVPUSH Q4H PRN PRN Reason: Shortness of Breath Last Admin: 12/04/18 17:06 Dose: 2 mg Morphine Sulfate (Morphine) 1 mg IVPUSH ONETIME ONE Stop: 12/03/18 16:11 Last Admin: 12/03/18 16:24 Dose: 1 mg Morphine Sulfate (Morphine) 1 mg IVPUSH Q4H PRN PRN Reason: Shortness of Breath Last Admin: 12/07/18 20:56 Dose: 1 mg Neostigmine Methylsulfate (Neostigmine Methylsulfate) 0.5 mg IM Q6H DHIRAJ Stop: 12/08/18 07:31 Last Admin: 12/08/18 09:43 Dose: 0.5 mg Racepinephrine (S-2 2.25%) 0.5 ml NEB Q4HRRT PRN PRN Reason: subglottic narrowing Racepinephrine (S-2 2.25%) 0.5 ml NEB TID DHIRAJ Stop: 12/06/18 09:00 Last Admin: 12/05/18 20:23 Dose: 0.5 ml Racepinephrine (S-2 2.25%) 0.5 ml NEB Q4HRRT PRN PRN Reason: choking Last Admin: 12/06/18 10:14 Dose: 0.5 ml Racepinephrine (S-2 2.25%) 0.5 ml NEB ONETIME ONE Stop: 12/04/18 13:41 Last Admin: 12/04/18 13:40 Dose: 0.5 ml Rivaroxaban (Xarelto) 20 mg PO DAILY [facility] Last Admin: 12/05/18 12:37 Dose: Not Given Rivaroxaban (Xarelto) 20 mg PO ONETIME ONE Stop: 12/04/18 21:28 Last Admin: 12/04/18 22:32 Dose: 20 mg Sodium Chloride (Saline Flush) 10 ml FLUSH ONETIME ONE Stop: 12/02/18 07:40 Last Admin: 12/02/18 09:30 Dose: 10 ml Sodium Chloride (Sodium Chloride 0.9%) 0 ml INH TID DHIRAJ Stop: 12/06/18 09:00 Last Admin: 12/06/18 10:15 Dose: 3 ml Sodium Chloride (Sodium Chloride 0.9%) 3 ml INH ASDIRECTED PRN PRN Reason: mix with racepinephrine neb Succinylcholine Chloride (Quelicin) 180 mg IV ONETIME ONE Stop: 11/30/18 18:46 Last Admin: 11/30/18 18:53 Dose: 180 mg - Exam General: Obtunded, Other (Does not respond to verbal calls or Sternal rub ) Lungs: Normal Respiratory Effort, Decreased Breath Sounds Cardiovascular: Regular Rate, Regular Rhythm GI/Abdominal Exam: Distended, Abnormal Bowel Sounds, Other (tight) (Male) Exam: Other (indwelling perez catheter) Back Exam: Other (deferred) Extremities: Pedal Edema, Slow Capillary Refill, Limited Range of Motion Peripheral Pulses: 1+: Dorsalis Pedis (L), Dorsalis Pedis (R) Skin: Warm, Dry, Intact, Ecchymosis, Other (acanthosis nigricans with skin tags) Neurological: Other (deferred: not appropriate due to AMS) Psy/Mental Status: Other (obtunded) - Problem List Review Problem List Initiated/Reviewed/Updated: Yes - My Orders Last 24 Hours: My Active Orders 12/10/18 10:58 Bedrest [RC] ASDIRECTED 12/10/18 11:00 Urinary Catheter Insertion [Insert Urinary Catheter] [OM.PC] Q24H 12/10/18 Lunch Thickened Liquids [DIET] 12/11/18 07:00 Abdomen 1V Flat [CR] Routine Chest 1V Frontal [CR] Routine 12/11/18 08:55 Head wo Cont [CT] Urgent 12/12/18 05:11 CBC WITH AUTO DIFF [HEME] AM CMP [COMPREHENSIVE METABOLIC PN,CMP] [CHEM] AM MG [MAGNESIUM] [CHEM] AM 12/13/18 05:11 CBC WITH AUTO DIFF [HEME] AM CMP [COMPREHENSIVE METABOLIC PN,CMP] [CHEM] AM MG [MAGNESIUM] [CHEM] AM - Plan Plan:: Assessment/Plan: Acute: Persistent Hepatic Encephalopathy/Obtunded - 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 - 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); he not able to take it yesterday and has bee inconsistent fort he past couple of days - 2/2 Advanced Liver Disease and Medical Non-compliance - Ammonia level is 167--> most recent 20; Bilirubin's most recent level is 3.1 - Unsure if he is taking his home meds; reportedly just returned home from a long trip - Resume Home Meds as ordered - Continue Lactulose, Xifaxan and IV Steroid; hospital carries no Cisapride; found last out we do not carry IVP erythromycin either - Ammonia level >300 this AM - Avoid NSAIDs - Repeat Head CT scan this AM report reads no acute intra-cranial abnormality - MVI, Folic and Thiamine Supplement when able to swallow - Consider NGT placement for decompression and start lactulose; may start oral erythromycin for prokinetic agent Cholestasis/Jaundice - T. Bilirubin 4.4-->3.4 -->2.5-->1.9-->2.6-->4.0-->3.5-->3.1-->3.2 - Has underlying liver failure - Risk factors: DM2 and Medications - Calculate Maddrey's score: est 48.7- Poor Prognosis - Continue IV Steroid Permissive Hyperglycemia in Type II DM, Stable - BS still in the in the 200s; Improved - He have his first meal since admission - Hold home PO meds until mental status improves -> resume as ordered - Accu-check Q6H with ISS coverage - Lantus 10 units subQ BID and Low dose Glucotrol 2.5 mg po BID - A1C 6.3 (improved from 7.4 on 08/01/19) Bibasilar Pneumonia w/ Small Pleural Effusion - CTA report reads parenchymal densities within both lung bases; R>>L - Continue IV Zosyn and Levaquin for pharmacy to dose; discontinue after total of 5 day treatment - IS as directed - Repeat Chest CT 12/05/2018 report reads improved right lower lobe parenchymal density with worsening bilateral patchy areas of alveolar density within both lungs. No mass is definitely appreciated on this exam. Small right sided pleural effusion. - Last dose antibiotic today - Repeat CRX in AM Generalized Edema with > 10 lbs Weight Gain - 122lbs on admission; 127lbs today - 2/2 Volume overload - Continue Bumex 0.5 mg IVP BID and low dose HCTZ BID - Albumin infusion due to low albumin state from liver cirrhosis Severe Colonic Ileus - CT scan report reads: Gaseous dilatation throughout the colon compatible with colonic ileus - He is has been mostly bedbound, also receiving PRN ativan and morphine - Abdomen remains distended but he is passing gas and liquid stool - Most recent abdominal x-ray shows severe ileus; repeat in AM - Prokinetic agents (reglan/erythromycin), lactulose, and Xifaxan - Rectal tube; patient removed NGT twice - Dr. Snow following; recommend not surgical intervention - NGT placement for decompression Abnormal head CT compare to 11/30/18 -CT obtained in ED 11/13/18 * 1. Mild small vessel ischemic demyelination change. * 2. Questionable diminished density within the cerebellum on both sides, worse on the left side possibly due to additional small vessel ischemic demyelination change but difficult to completely exclude early ischemic infarct. MRI study with diffusion would be helpful to confirm or rule out this possibility. * 3. No acute intracranial hemorrhage or other abnormality is seen. -MRI obtained 11/13/18: * 1. Mild small vessel ischemic demyelination change within the subcortical white matter. * 2. No abnormal signal is seen within the cerebellar hemispheres and prior CT finding most likely represents B Scott artifact. * 3. No acute diffusion abnormalities are seen -CT Abdominal/Pelvis 12/02/2018 * 1. Cirrhotic change within the liver with splenomegaly * 2. Minimal pleural effusion seen around a portion of the liver * 3. Nothing acute is appreciated Resolved: S/p Hypomagnesemia - Magnesium-repace as needed - 2/2 inadequate intake S/P ETT on propofol drip, mild sedation; Nebs scheduled; NGT placed with low intermittent suction. - CXR q AM. HOB>40 degrees. - ABG looks good this AM; will try to extubate him - He is now off propofol drip S/p Subglottic Narrowing S/p Extubation - IV Steroid and Scheduled/PRN Racemic Epinephrine - Repeat CXR shows improved abnormal findings S/p Hypocalcemia - Ca 7.1--> 6.9-->7.3-->7.1-->8.3-->9.0 - 2/2 GI loss and NPO status - Replete and monitor S/p Rectal Bleed - Carries a hx/o Intestinal Varices - Hgb remains stable; will continue to monitor - Continue to avoid anticoagulant Chronic: Advanced Liver Disease from Long Hx/o ETOH Abuse Hx/o Esophageal Varices S/p TIPS Pancytopenia 2/2 Liver Disease, Platelet and Hgb at baseline Hypoalbuminemia, 2/2 Liver Disease Albumin level at baseline DM2, Accu-check QID with ISS (will increased level to high) Hyperbilirubinemia/Cholestasis, 2/2 Advanced Liver Disease Obesity with BMI of 38 GERD Chronic Back Pain GI bleeds from Intestinal Varices and Hemorrhoids Thrombocytopenia Hepatic encephalopathy Hypothyroidism Eczema Plan: He is obtunded today Head CT scan stat Continue current treatment Routine AM Labs GI PPx: 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 Remi still wanted him transferred to [facility]. - Patient Instructions Diet: Diabetic Diet Activity: As Tolerated Notify Provider of: Fever, Increased Pain, Nausea and/or Vomiting - Discharge Plan *PRESCRIPTION DRUG MONITORING PROGRAM REVIEWED*: No *COPY OF PRESCRIPTION DRUG MONITORING REPORT IN PATIENT RAVI: No
[2018-12-11] MEDS ORDERED: Sodium Chloride 0.9% 1,000 ML IV SCH (09:45)
--- NOTE | 2018-12-11 09:50 | CR ---
Abdomen: Supine view of the abdomen was obtained. Comparison: Prior abdominal x-ray of 12/08/18. Diffuse gaseous dilatation of colon is seen. This appears similar to previous exam. TIPS stent is seen as well as stent within the right pulmonary artery. Gallstones are seen within the upper right abdomen. Presumed embolization coil seen within the left mid abdomen. Degenerative change is scattered within the spine. Impression: 1. Continuing colonic ileus. 2. Other incidental findings. Diagnostic code #3
--- NOTE | 2018-12-11 09:50 | CT ---
Head CT Technique: Multiple axial sections through the brain were obtained. Intravenous contrast was not utilized. Comparison: Previous head CT study of 12/02/18. Findings: Ventricles along with basal cisterns and sulci over the convexities are within normal limits for the patient's age. Minimal basal ganglia calcification is seen. No abnormal parenchymal densities are seen. No evidence of intracranial hemorrhage. No midline shift or mass effect is seen. Bone window settings were reviewed which show no acute calvarial abnormality. Visualized sinuses are clear. Impression: 1. Nothing acute is appreciated on noncontrast CT study of the brain. Diagnostic code #2
--- NOTE | 2018-12-11 10:06 | CR ---
Chest: Frontal view of the chest is obtained utilizing AP technique. Comparison: Previous chest x-ray of 12/08/18. Heart size and mediastinum are stable. Diffuse increased density is noted within the right chest which is felt to be stable from prior exam when allowing for less inspiratory effort on current exam. Pulmonary vessels are diffusely increased which also remain stable. Bony structures are grossly intact. Impression: 1. Poor inspiratory effort on current study. 2. Chest x-ray is otherwise felt to be fairly stable from previous exam. Diagnostic code #3
--- NOTE | 2018-12-11 10:15 | PCM.SN ---
- Free Text/Narrative Note: Called [facility] and spoke with Mildred manager transfer. Discussed case with her about this patient. She requested face sheet/medical records faxed to [phone] and most recent imaging studies to [facility]; call her for any questions at [phone]. Called patient's brother and updated him about Kaden's clinical status and transfer progress. Asked [place] to come over and if possible to bring in all Kaden's children along with him.
[2018-12-11] MEDS: Bumetanide 1 MG/4 ML MDV IVPUSH SCH (11:32)
[2018-12-11] MEDS: Dexamethasone 4 MG/ML SDV IVPUSH SCH (11:32)
--- NOTE | 2018-12-11 12:25 | CR ---
Chest: Frontal view of the chest was obtained centered to the diaphragms. Diffuse parenchymal change noted within the chest which was previously described. Nasogastric tube is seen. Tip lies past the gastroesophageal junction and is within the stomach although remains vertical in position and could be advanced by another 4 or 5 cm. Continuing gas dilated colon is seen. Impression: 1. Nasogastric tube position as noted above with recommendation. 2. Other stable findings as noted above. Diagnostic code #3
--- NOTE | 2018-12-11 14:06 | PCM.DCSUM1 ---
Discharge Summary - Hospital Course HPI Initial Comments: 58 year old male who presents with AMS, has elevated ammonia level; he is s/p intubation in the ED. The patient withdraws to pain only, was unable to take lactulose orally, received 60 gm via NGT after intubation. It is unknown whether the patient has been taking his medication with certainty. However it appears that he has not per reportedly history by family members. He had a Perez placed in the ED. The patient is a full code, and will be admitted to the ICU. A CT of the head without contrast was performed which is unchanged from the 11/13/18 imaging. The patient lost a tooth, it is unknown when it may have occurred. 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 PMH: GERD, GI bleeds, liver failure, ulcers, chronic back pain, alcohol addiction, hepatic encephalopathy, type II DM, hypothyroidism, anemia, eczema, cellulitis, Advanced Liver Disease from Long Hx/o ETOH Abuse, Hx/o Esophageal Varices S/p TIPS, Pancytopenia 2/2 Liver Disease, Hypoalbuminemia 2/2 Liver Disease, Hyperbilirubinemia, 2/2 Advanced Liver Disease. He is a full code. His PCPs with [facility]. 11/13/[address] scan was obtained and interpreted by Dr. Mendez as "1. Mild small vessel ischemic demyelination change. 2. Questionable diminished density within the cerebellum on both sides, worse on the left side possibly due to additional small vessel ischemic demyelination change but difficult to completely exclude early ischemic infarct. MRI study with diffusion would be helpful to confirm or rule out this possibility. 3. No acute intracranial hemorrhage or other acute abdomen mildly seen." Diagnosis: Stroke: No - Discharge Data Discharge Date: 12/11/18 Discharge Disposition: DC/Tfer to Acute Hospital 02 Condition: Fair - Discharge Diagnosis/Problem(s) (1) Encephalopathy, hepatic SNOMED Code(s): 38921347 ICD Code: K72.90 - HEPATIC FAILURE, UNSPECIFIED WITHOUT COMA Status: Acute (2) Cholestatic cirrhosis SNOMED Code(s): 4781767 ICD Code: K74.5 - BILIARY CIRRHOSIS, UNSPECIFIED Status: Acute (3) Hyperglycemia due to type 2 diabetes mellitus SNOMED Code(s): 157681160767541, 812006085800376 ICD Code: E11.65 - TYPE 2 DIABETES MELLITUS WITH HYPERGLYCEMIA Status: Acute (4) Atelectasis, bilateral SNOMED Code(s): 55231488 ICD Code: J98.11 - ATELECTASIS Status: Acute (5) Pleural effusion associated with hepatic disorder SNOMED Code(s): 33405792 ICD Code: K76.9 - LIVER DISEASE, UNSPECIFIED; J91.8 - PLEURAL EFFUSION IN OTHER CONDITIONS CLASSIFIED ELSEWHERE Status: Acute (6) Anasarca SNOMED Code(s): 657407995, 155063530 ICD Code: R60.1 - GENERALIZED EDEMA Status: Acute (7) Thrombocytopenia SNOMED Code(s): 817834016 ICD Code: D69.6 - THROMBOCYTOPENIA, UNSPECIFIED Status: Acute (8) Liver disease, chronic, with cirrhosis SNOMED Code(s): 703644930 ICD Code: K74.60 - UNSPECIFIED CIRRHOSIS OF LIVER; K76.9 - LIVER DISEASE, UNSPECIFIED Status: Acute (9) Ileus SNOMED Code(s): 210286750 ICD Code: K56.7 - ILEUS, UNSPECIFIED Status: Acute (10) Hypomagnesemia SNOMED Code(s): 419991871 ICD Code: E83.42 - HYPOMAGNESEMIA Status: Acute (11) Subglottic edema SNOMED Code(s): 73746756 ICD Code: J38.4 - EDEMA OF LARYNX Status: Acute (12) Hypocalcemia SNOMED Code(s): 8517197 ICD Code: E83.51 - HYPOCALCEMIA Status: Acute (13) Rectal bleed SNOMED Code(s): 27385447 ICD Code: K62.5 - HEMORRHAGE OF ANUS AND RECTUM Status: Acute - Patient Summary/Data Operative Procedure(s) Performed: None Complications: Unknown Consults: Consultations 11/30/18 21:22 Consult to Case Management/Cut Off Man [CONS] Routine 12/03/18 08:15 Consult to Dietary [Consult to Plywood Scarfer Tender] [CONS] Routine 12/03/18 09:34 Consult to Speech Language Pathology [CONTRACT ADMIN Evaluation and Treatment] [CONS] Routine 12/07/18 10:42 PT Evaluation and Treatment [CONS] Routine 12/07/18 10:43 OT Evaluation and Treatment [CONS] Routine 12/08/18 17:15 Consult to Physician [CONS] Routine 12/09/18 15:40 Consult to Plywood Scarfer Tender [CONS] Routine Labs Pending at D/C: None Recommended Follow-up Testing/Procedures: None Planned Operative Procedure(s) after DC: None Hospital Course: Patient was primarily admitted for acute on chronic hepatic encephalopathy (HE) due to hx/o chronic liver cirrhosis. Unfortunately, due to severity of his altered mental status he was intubated and an NGT was put in in order for him to receive his xifaxan and lactulose. He did improve until he was well enough to be extubated. He did fairly good after extubation but he developed subglottic narrowing which prevented him from taking his oral pills. We were careful to not put another NGT in due to concerns of perforation form his hx/o esophageal varices as well as risk for bleeding because of his low platelet levels but we did not have any options. Unfortunately, it took multiple attempts before a successful one was placed in. At that time, patient developed ileus and his symptom worsens with inconsistent intake of his HE medications. His hospital course was complicated by worsening bilirubin level, volume overload as well as pulmonary insufficiency with findings of small bilateral pleural effusions. His renal function remains outstanding but throughout his stay, he was not able to achieve and maintain a full level of alertness. We met up with his family and expressed my concerns of his worsening liver decompensation. We offered lateral transfer to [place] but his brother decided to keep him here. However it was not long before his brother decided for [facility] transfer and we did request for inpatient for possible liver transplant consideration. Unfortunately, after his case was reviewed the transplant team recommended outpatient evaluation. At that point, his family then elected to go with [facility] for additional treatment with plans for transfer to [facility] or [facility] if he continues to do poorly. He will be under the services of Dr. Wilkes , charisse for further management. He left facility via ground transportation. His overall prognosis at this point is very poor. - Patient Instructions Diet: Regular Diet as Tolerated, Diabetic Diet, Weight Loss Diet Activity: As Tolerated Driving: Do Not Drive Showering/Bathing: May Shower Notify Provider of: Fever, Increased Pain, Swelling and Redness, Nausea and/or Vomiting Other/Special Instructions: - Transfer to [facility] under the services of Dr. Wilkes, attending - Discharge Plan *PRESCRIPTION DRUG MONITORING PROGRAM REVIEWED*: Not Applicable *COPY OF PRESCRIPTION DRUG MONITORING REPORT IN PATIENT RAVI: Not Applicable Home Medications: Home Meds Cholecalciferol (Vitamin D3) [Vitamin D3] 2,000 unit PO DAILY #30 cap 11/16/17 [ Rx] Pantoprazole [ProTONIX] 40 mg PO DAILY #30 tab.cr 11/16/17 [Rx] Magnesium Oxide 800 mg PO BID 01/08/18 [History] Spironolactone [Aldactone] 12.5 mg PO BID 10/20/18 [History] Rifaximin [Xifaxan] 550 mg PO BID #60 tablet 11/14/18 [Rx] Multivit-Min/FA/Lycopene/Lut [Sentry Senior Tablet] 1 each PO DAILY 11/30/18 [ History] Vitamin B Complex [B Complex] 1 each PO DAILY 11/30/18 [History] Albuterol/Ipratropium [DuoNeb 3.0-0.5 MG/3 ML] 3 ml NEB Q4HRRT PRN neb [Rx] Albuterol/Ipratropium [DuoNeb 3.0-0.5 MG/3 ML] 3 ml NEB Q8HRRT neb 12/11/18 [Rx ] Alum Hydrox/Mag Hydrox/Simeth [Mag-Al Plus] 30 ml PO Q4H PRN cup 12/11/18 [Rx] Bumetanide [Bumex] 0.5 mg IVPUSH BID mdv 12/11/18 [Rx] Dexamethasone 4 mg IVPUSH DAILY sdv 12/11/18 [Rx] Erythromycin Base [Jed-Tab] 500 mg PO TID tablet 12/11/18 [Rx] Famotidine [Pepcid] 20 mg PO BID tablet 12/11/18 [Rx] Insulin Glarg,Human.Rec.Analog [Lantus] 10 unit SUBCUT BID ml 12/11/18 [Rx] Insulin Lispro [HumaLOG] 0 unit SUBCUT QIDACANDBED vial 12/11/18 [Rx] Lactulose [Cephulac] 20 gm PO TID@0700,1400,2100 cup 12/11/18 [Rx] Metoclopramide [Reglan] 10 mg IVPUSH Q6H sdv 12/11/18 [Rx] Morphine 0.5 mg IVPUSH Q4H PRN syringe 12/11/18 [Rx] Saccharomyces Boulardii [Florastor] 250 mg PO BID cap 12/11/18 [Rx] Sodium Chloride 0.9% [Normal Saline] 50 ml IV ASDIRECTED #1 bag 12/11/18 [Rx] glipiZIDE [Glucotrol XL] 2.5 mg PO BID tab.er 12/11/18 [Rx] hydroCHLOROthiazide [Hydrochlorothiazide] 12.5 mg PO BIDDIURETIC cap 12/11/18 [ Rx] Patient Handouts: Hepatic Encephalopathy, Hypomagnesemia, Ileus, Cirrhosis, Atelectasis, Adult, Hypocalcemia, Adult, Type 2 Diabetes Mellitus, Self Care, Adult, [id number], Pleural Effusion, Acute Respiratory Failure, Adult, Heart Failure, Peripheral Edema, Obesity, Adult, [id number] Referrals: [facility] [Ordering Only Provider] - - Discharge Summary/Plan Comment DC Time >30 min.: Yes (45 mins) Discharge Summary/Plan Comment: Transfer to [facility] - General Info Date of Service: 12/11/18 Admission Dx/Problem (Free Text: Admission Diagnosis/Problem Admission Diagnosis/Problem Cirrhosis of liver Subjective Update: Follow Up Functional Status: Reports: Pain Controlled, Urinating. Denies: New Symptoms - Review of Systems General: Denies: Fever, Chills Systems Review Comment: Patient still altered and unresponsive. - Patient Data Vitals - Most Recent: Last Vital Signs Temp 36.2 C 12/11/18 11:06 Pulse 97 12/11/18 13:58 Resp 17 12/11/18 13:58 BP 128/61 12/11/18 13:57 Pulse Ox 94 L 12/11/18 13:58 Weight - Most Recent: 127.148 kg I&O - Last 24 hours: Intake & Output 12/10/18 12/11/18 12/11/18 22:59 06:59 14:59 Intake Total 0 0 Output Total 660 734 836 Balance -787 -960 -757 Lab Results - Last 24 hrs: Laboratory Results - last 24 hr 12/10/18 12/10/18 12/11/18 Range/Units 17:14 21:49 05:30 WBC (4.23-9.07) K/mm3 RBC (4.63-6.08) M/mm3 Hgb (13.7-17.5) gm/L Hct (40.1-51.0) % MCV (79.0-92.2) fl MCH (25.7-32.2) pg MCHC (32.2-35.5) g/dl RDW Std Deviation (35.1-43.9) fL Plt Count (163-337) K/mm3 MPV (9.4-12.3) fl Neut % (Auto) (34.0-67.9) % Lymph % (Auto) (21.8-53.1) % Cook % (Auto) (5.3-12.2) % Eos % (Auto) (0.8-7.0) Baso % (Auto) (0.1-1.2) % Neut # (Auto) (1.78-5.38) K/mm3 Lymph # (Auto) (1.32-3.57) K/mm3 Cook # (Auto) (0.30-0.82) K/mm3 Eos # (Auto) (0.04-0.54) K/mm3 Baso # (Auto) (0.01-0.08) K/mm3 Manual Slide Review PT 21.9 H (9.5-12.1) SECONDS INR 2.04 Sodium (136-145) mEq/L Potassium (3.5-5.1) mEq/L Chloride (98-107) mEq/L Carbon Dioxide (21-32) mEq/L Anion Gap (5-15) BUN (7-18) mg/dL Creatinine (0.7-1.3) mg/dL Est Cr Clr Drug Dosing mL/min Estimated GFR (MDRD) (>60) mL/min BUN/Creatinine Ratio (14-18) Glucose (74-106) mg/dL POC Glucose 194 H 204 H (70-105) mg/dL Calcium (8.5-10.1) mg/dL Magnesium (1.8-2.4) mg/dl Total Bilirubin (0.2-1.0) mg/dL AST (15-37) U/L ALT (16-63) U/L Alkaline Phosphatase (46-116) U/L Ammonia (11-32) umol/L Total Protein (6.4-8.2) g/dl Albumin (3.4-5.0) g/dl Globulin gm/dL Albumin/Globulin Ratio (1-2) 12/11/18 12/11/18 12/11/18 Range/Units 05:30 05:30 05:30 WBC 19.92 H (4.23-9.07) K/mm3 RBC 3.58 L (4.63-6.08) M/mm3 Hgb 11.9 L (13.7-17.5) gm/L Hct 35.9 L (40.1-51.0) % MCV 100.3 H (79.0-92.2) fl MCH 33.2 H (25.7-32.2) pg MCHC 33.1 (32.2-35.5) g/dl RDW Std Deviation 62.2 H (35.1-43.9) fL Plt Count 44 L (163-337) K/mm3 MPV 10.2 (9.4-12.3) fl Neut % (Auto) 88.7 H (34.0-67.9) % Lymph % (Auto) 4.4 L (21.8-53.1) % Cook % (Auto) 6.5 (5.3-12.2) % Eos % (Auto) 0 L (0.8-7.0) Baso % (Auto) 0.1 (0.1-1.2) % Neut # (Auto) 17.67 H (1.78-5.38) K/mm3 Lymph # (Auto) 0.88 L (1.32-3.57) K/mm3 Cook # (Auto) 1.30 H (0.30-0.82) K/mm3 Eos # (Auto) 0.00 L (0.04-0.54) K/mm3 Baso # (Auto) 0.02 (0.01-0.08) K/mm3 Manual Slide Review Abnormal smear PT (9.5-12.1) SECONDS INR Sodium 148 H (136-145) mEq/L Potassium 4.4 (3.5-5.1) mEq/L Chloride 115 H (98-107) mEq/L Carbon Dioxide 27 (21-32) mEq/L Anion Gap 10.4 (5-15) BUN 61 H (7-18) mg/dL Creatinine 1.4 H (0.7-1.3) mg/dL Est Cr Clr Drug Dosing 58.66 mL/min Estimated GFR (MDRD) 52 (>60) mL/min BUN/Creatinine Ratio 43.6 H (14-18) Glucose 178 H (74-106) mg/dL POC Glucose (70-105) mg/dL Calcium 9.2 (8.5-10.1) mg/dL Magnesium 2.8 H (1.8-2.4) mg/dl Total Bilirubin 3.2 H (0.2-1.0) mg/dL AST 33 (15-37) U/L ALT 39 (16-63) U/L Alkaline Phosphatase 109 (46-116) U/L Ammonia 354 H (11-32) umol/L Total Protein 5.4 L (6.4-8.2) g/dl Albumin 1.6 L (3.4-5.0) g/dl Globulin 3.8 gm/dL Albumin/Globulin Ratio 0.4 L (1-2) 12/11/18 12/11/18 Range/Units 06:16 12:12 WBC (4.23-9.07) K/mm3 RBC (4.63-6.08) M/mm3 Hgb (13.7-17.5) gm/L Hct (40.1-51.0) % MCV (79.0-92.2) fl MCH (25.7-32.2) pg MCHC (32.2-35.5) g/dl RDW Std Deviation (35.1-43.9) fL Plt Count (163-337) K/mm3 MPV (9.4-12.3) fl Neut % (Auto) (34.0-67.9) % Lymph % (Auto) (21.8-53.1) % Cook % (Auto) (5.3-12.2) % Eos % (Auto) (0.8-7.0) Baso % (Auto) (0.1-1.2) % Neut # (Auto) (1.78-5.38) K/mm3 Lymph # (Auto) (1.32-3.57) K/mm3 Cook # (Auto) (0.30-0.82) K/mm3 Eos # (Auto) (0.04-0.54) K/mm3 Baso # (Auto) (0.01-0.08) K/mm3 Manual Slide Review PT (9.5-12.1) SECONDS INR Sodium (136-145) mEq/L Potassium (3.5-5.1) mEq/L Chloride (98-107) mEq/L Carbon Dioxide (21-32) mEq/L Anion Gap (5-15) BUN (7-18) mg/dL Creatinine (0.7-1.3) mg/dL Est Cr Clr Drug Dosing mL/min Estimated GFR (MDRD) (>60) mL/min BUN/Creatinine Ratio (14-18) Glucose (74-106) mg/dL POC Glucose 179 H 193 H (70-105) mg/dL Calcium (8.5-10.1) mg/dL Magnesium (1.8-2.4) mg/dl Total Bilirubin (0.2-1.0) mg/dL AST (15-37) U/L ALT (16-63) U/L Alkaline Phosphatase (46-116) U/L Ammonia (11-32) umol/L Total Protein (6.4-8.2) g/dl Albumin (3.4-5.0) g/dl Globulin gm/dL Albumin/Globulin Ratio (1-2) Med Orders - Current: Current Medications Al Hydroxide/Mg Hydroxide (Mag-Al Plus) 30 ml PO Q4H PRN PRN Reason: Heartburn Last Admin: 12/07/18 20:54 Dose: 30 ml Albuterol/Ipratropium (Duoneb 3.0-0.5 Mg/3 Ml) 3 ml NEB Q8HRRT [facility] Last Admin: 12/11/18 13:03 Dose: 3 ml Albuterol/Ipratropium (Duoneb 3.0-0.5 Mg/3 Ml) 3 ml NEB Q4HRRT PRN PRN Reason: Wheezing Bumetanide (Bumex) 0.5 mg IVPUSH BID [facility] Last Admin: 12/11/18 11:32 Dose: Not Given Dexamethasone (Dexamethasone) 4 mg IVPUSH DAILY [facility] Last Admin: 12/11/18 11:32 Dose: 4 mg Erythromycin (Jed-Tab) 500 mg PO TID [facility] Last Admin: 12/11/18 12:44 Dose: 500 mg Famotidine (Pepcid) 20 mg PO BID [facility] Last Admin: 12/11/18 09:00 Dose: Not Given Glipizide (Glucotrol Xl) 2.5 mg PO BID [facility] Last Admin: 12/11/18 09:00 Dose: Not Given Hydrochlorothiazide (Hydrochlorothiazide) 12.5 mg PO BIDDIURETIC [facility] Last Admin: 12/11/18 06:19 Dose: Not Given Sodium Chloride (Normal Saline) 1,000 mls @ 50 mls/hr IV ASDIRECTED [facility] Last Admin: 12/11/18 10:53 Dose: 50 mls/hr Insulin Glargine (Lantus) 10 unit SUBCUT BID [facility] Last Admin: 12/11/18 09:01 Dose: Not Given Insulin Human Lispro (Humalog) 0 unit SUBCUT QIDACANDBED [facility]; Protocol Last Admin: 12/11/18 12:24 Dose: 3 units Lactulose (Cephulac) 20 gm PO TID@0700,1400,2100 [facility] Last Admin: 12/11/18 12:44 Dose: 20 gm Lorazepam (Ativan) 0.5 mg IVPUSH Q6H PRN PRN Reason: restlessness Last Admin: 12/09/18 00:17 Dose: 0.5 mg Metoclopramide HCl (Reglan) 10 mg IVPUSH Q6H [facility] Last Admin: 12/11/18 11:32 Dose: 10 mg Morphine Sulfate (Morphine) 0.5 mg IVPUSH Q4H PRN PRN Reason: Shortness of Breath Rifaximin (Xifaxan) 550 mg PO BID [facility] Last Admin: 12/11/18 09:01 Dose: Not Given Saccharomyces Boulardii (Florastor) 250 mg PO BID [facility] Last Admin: 12/11/18 09:00 Dose: Not Given Sodium Chloride (Saline Flush) 10 ml FLUSH ASDIRECTED PRN PRN Reason: Keep Vein Open Last Admin: 12/07/18 10:05 Dose: 10 ml Sodium Chloride (Sodium Chloride 0.9%) 3 ml INH ASDIRECTED PRN PRN Reason: mix with racepinephrine neb Spironolactone (Aldactone) 12.5 mg PO BID [facility] Last Admin: 12/11/18 08:59 Dose: Not Given Discontinued Medications Hydrocodone Bitart/Acetaminophen (Vonore 325-5 Mg) 1 tab PO Q4H PRN PRN Reason: Pain (moderate 4-6) Last Admin: 12/07/18 08:55 Dose: 1 tab Hydrocodone Bitart/Acetaminophen (Vonore 325-5 Mg) 1 tab PO Q6H PRN PRN Reason: Pain (moderate 4-6) Last Admin: 12/10/18 08:46 Dose: 1 tab Bumetanide (Bumex) 1 mg IVPUSH ONETIME ONE Stop: 12/03/18 16:12 Last Admin: 12/03/18 16:25 Dose: 1 mg Bumetanide (Bumex) 1 mg IVPUSH ONETIME ONE Stop: 12/03/18 21:01 Last Admin: 12/03/18 21:16 Dose: 1 mg Bumetanide (Bumex) 1 mg IVPUSH ONETIME ONE Stop: 12/04/18 13:25 Last Admin: 12/04/18 14:36 Dose: 1 mg Caffeine (Caffeine) 200 mg PO DAILY [facility] Stop: 12/09/18 12:30 Last Admin: 12/09/18 11:55 Dose: Not Given Calcium Carbonate/Glycine (Calcium Carbonate) 1,200 mg PO ONETIME ONE Stop: 12/02/18 22:23 Last Admin: 12/02/18 22:42 Dose: 1,200 mg Calcium Carbonate/Glycine (Tums) 1,000 mg PO ONETIME ONE Stop: 12/04/18 21:33 Last Admin: 12/04/18 22:32 Dose: 1,000 mg Calcium Gluconate (Calcium Gluconate) 1 gm IVPUSH ONETIME ONE Stop: 12/03/18 14:10 Last Admin: 12/03/18 14:47 Dose: Not Given Dexamethasone (Dexamethasone) 4 mg IVPUSH Q12H [facility] Last Admin: 12/03/18 05:48 Dose: 4 mg Dexamethasone (Dexamethasone) 4 mg IVPUSH Q12H [facility] Stop: 12/05/18 09:30 Last Admin: 12/05/18 09:04 Dose: 4 mg Dexamethasone (Dexamethasone) 4 mg IVPUSH ONETIME ONE Stop: 12/08/18 17:33 Last Admin: 12/08/18 18:15 Dose: 4 mg Erythromycin (Jed-Tab) 250 mg PO Q8HR [facility] Last Admin: 12/03/18 05:41 Dose: 250 mg Etomidate (Amidate) 30 mg IVPUSH ONETIME ONE Stop: 11/30/18 18:39 Last Admin: 11/30/18 18:52 Dose: 30 mg Famotidine (Pepcid) 20 mg IVPUSH BID [facility] Last Admin: 12/09/18 09:41 Dose: 20 mg Famotidine (Pepcid) 20 mg IVPUSH ONETIME ONE Stop: 11/30/18 21:57 Last Admin: 11/30/18 22:26 Dose: 20 mg Furosemide (Lasix) 20 mg IVPUSH NOW ONE Stop: 12/01/18 23:01 Last Admin: 12/01/18 23:16 Dose: 20 mg Furosemide (Lasix) 40 mg PO DAILY [facility] Last Admin: 12/05/18 09:11 Dose: 40 mg Hydrochlorothiazide (Hydrochlorothiazide) 25 mg PO ONETIME ONE Stop: 12/07/18 12:27 Last Admin: 12/07/18 13:05 Dose: 25 mg Hydrochlorothiazide (Hydrochlorothiazide) 12.5 mg PO ONETIME ONE Stop: 12/07/18 21:01 Last Admin: 12/07/18 20:51 Dose: 12.5 mg Sodium Chloride (Normal Saline) 1,000 mls @ 125 mls/hr IV ASDIRECTED [facility] Last Admin: 11/30/18 16:55 Dose: 125 mls/hr Propofol (Diprivan 100 Ml) 100 mls @ 7.348 mls/hr IV TITRATE [facility]; Protocol Last Titration: 12/01/18 11:09 Dose: 0 mcg/kg/min, 0 mls/hr Propofol (Diprivan 100 Ml) Confirm Administered Dose 100 mls @ as directed .ROUTE .STK-MED ONE Stop: 11/30/18 19:02 Last Admin: 11/30/18 19:15 Dose: Not Given Dextrose/Sodium Chloride (Dextrose 5%-Normal Saline) 1,000 mls @ 100 mls/hr IV ASDIRECTED [facility] Last Admin: 12/01/18 09:20 Dose: 100 mls/hr Magnesium Sulfate 4 gm/ Premix 50 mls @ 12.5 mls/hr IV ONETIME ONE Stop: 12/01/18 13:28 Last Admin: 12/01/18 09:50 Dose: 12.5 mls/hr Magnesium Sulfate 4 gm/ Premix 50 mls @ 12.5 mls/hr IV ONETIME ONE Stop: 12/01/18 23:59 Last Admin: 12/01/18 19:58 Dose: 12.5 mls/hr Potassium Chloride/Sodium Chloride (Normal Saline With 20 Meq Kcl) 1,000 mls @ 100 mls/hr IV ASDIRECTED [facility] Last Admin: 12/02/18 01:03 Dose: 100 mls/hr Potassium Chloride/Sodium Chloride (Normal Saline With 20 Meq Kcl) 500 mls @ 500 mls/hr IV ASDIRECTED [facility] Stop: 12/01/18 19:29 Last Admin: 12/01/18 18:47 Dose: 500 mls/hr Piperacillin Sod/Tazobactam (Sod 4.5 gm/ Sodium Chloride) 100 mls @ 25 mls/hr IV Q8H [facility] Last Admin: 12/06/18 01:18 Dose: 25 mls/hr Piperacillin Sod/Tazobactam (Sod 4.5 gm/ Sodium Chloride) 100 mls @ 200 mls/hr IV ONETIME ONE Stop: 12/01/18 19:14 Last Admin: 12/01/18 19:14 Dose: 200 mls/hr Dextrose/Sodium Chloride (Dextrose 5%-Normal Saline) 1,000 mls @ 100 mls/hr IV ASDIRECTED [facility] Last Admin: 12/02/18 05:46 Dose: 100 mls/hr Levofloxacin/Dextrose 750 mg/ (Premix) 150 mls @ 100 mls/hr IV ONETIME ONE Stop: 12/02/18 07:29 Last Admin: 12/02/18 08:46 Dose: Not Given Sodium Chloride (Normal Saline) 500 mls @ 999 mls/hr IV .BOLUS ONE Stop: 12/02/18 05:56 Last Admin: 12/02/18 05:45 Dose: 999 mls/hr Sodium Chloride (Normal Saline) Confirm Administered Dose 500 mls @ as directed .ROUTE .STK-MED ONE Stop: 12/02/18 05:45 Last Admin: 12/02/18 05:50 Dose: Not Given Norepinephrine Bitartrate 4 mg (/ Dextrose/Water) 250 mls @ 7.5 mls/hr IV TITRATE [facility]; Protocol Last Titration: 12/02/18 11:17 Dose: 0 mcg/min, 0 mls/hr Levofloxacin/Dextrose 750 mg/ (Premix) 150 mls @ 100 mls/hr IV ONETIME ONE Stop: 12/02/18 13:29 Last Admin: 12/02/18 12:15 Dose: 100 mls/hr Sodium Chloride (Normal Saline) 2,000 mls @ 999 mls/hr IV ONETIME ONE Stop: 12/02/18 10:42 Last Admin: 12/02/18 09:11 Dose: 999 mls/hr Potassium Chloride/Sodium Chloride (Normal Saline With 20 Meq Kcl) 1,000 mls @ 150 mls/hr IV ASDIRECTED [facility] Last Admin: 12/03/18 08:14 Dose: 150 mls/hr Dextrose/Sodium Chloride (Dextrose 5%-Normal Saline) 1,000 mls @ 150 mls/hr IV ASDIRECTED [facility] Last Admin: 12/02/18 22:32 Dose: 150 mls/hr Sodium Chloride (Normal Saline) 100 mls @ 60 mls/hr IV ASDIRECTED [facility] Last Admin: 12/02/18 14:44 Dose: 60 mls/hr Sodium Chloride (Normal Saline) 1,000 mls @ 999 mls/hr IV ONETIME ONE Stop: 12/02/18 15:18 Last Admin: 12/02/18 15:00 Dose: 999 mls/hr Levofloxacin/Dextrose 750 mg/ (Premix) 150 mls @ 100 mls/hr IV Q24H DHIRAJ Levofloxacin/Dextrose 750 mg/ (Premix) 150 mls @ 100 mls/hr IV Q24H DHIRAJ Last Admin: 12/05/18 15:11 Dose: 100 mls/hr Calcium Gluconate 1 gm/ Sodium (Chloride) 60 mls @ 120 mls/hr IV ONETIME ONE Stop: 12/03/18 15:29 Last Admin: 12/03/18 14:37 Dose: 100 mls/hr Sodium Chloride (Normal Saline) 1,000 mls @ 75 mls/hr IV ASDIRECTED DHIRAJ Last Infusion: 12/04/18 18:14 Dose: 25 mls/hr Sodium Chloride (Normal Saline) 1,000 mls @ 25 mls/hr IV ASDIRECTED DHIRAJ Last Admin: 12/04/18 18:15 Dose: 25 mls/hr Albumin Human (Flexbumin 25%) 12.5 gm in 50 mls @ 100 mls/hr IV ONETIME ONE Stop: 12/07/18 12:56 Last Admin: 12/07/18 13:05 Dose: 100 mls/hr Albumin Human (Flexbumin 25%) 12.5 gm in 50 mls @ 100 mls/hr IV ONETIME ONE Stop: 12/08/18 04:29 Last Admin: 12/08/18 03:03 Dose: 100 mls/hr Erythromycin Lactobionate 500 (mg/ Sodium Chloride) 100 mls @ 100 mls/hr IV Q6H [facility] Last Admin: 12/10/18 22:37 Dose: Not Given Insulin Glargine (Lantus) 10 unit SUBCUT BID [facility] Last Admin: 12/07/18 20:50 Dose: 10 units Insulin Glargine (Lantus) 12 unit SUBCUT BID DHIRAJ Insulin Human Lispro (Humalog) 0 unit SUBCUT Q6HR [facility]; Protocol Last Admin: 12/03/18 12:27 Dose: 9 unit Insulin Human Lispro (Humalog) 0 unit SUBCUT QIDACANDBED [facility]; Protocol Last Admin: 12/03/18 17:32 Dose: 9 units Insulin Human Lispro (Humalog) 0 unit SUBCUT Q6HR [facility]; Protocol Last Admin: 12/07/18 23:10 Dose: 1 units Iopamidol (Isovue-370 (76%)) 100 ml IV ONETIME ONE Stop: 12/02/18 07:40 Last Admin: 12/02/18 09:30 Dose: 100 ml Iopamidol (Isovue-370 (76%)) 100 ml IV ONETIME ONE Stop: 12/02/18 14:19 Last Admin: 12/02/18 14:44 Dose: 100 ml Lactulose (Cephulac) 60 gm NGTUBE ONETIME ONE Stop: 11/30/18 19:01 Last Admin: 11/30/18 19:52 Dose: 60 gm Lactulose (Cephulac) 60 gm PO ONETIME ONE Stop: 12/01/18 01:01 Last Admin: 12/01/18 01:00 Dose: 60 gm Lactulose (Cephulac) 45 gm PO Q6H DHIRAJ Last Admin: 12/02/18 09:16 Dose: Not Given Lactulose (Cephulac) 30 gm PO BID [facility] Last Admin: 12/04/18 16:28 Dose: 30 gm Lactulose (Cephulac) 30 gm PO TID [facility] Last Admin: 12/05/18 15:14 Dose: 30 gm Lactulose (Cephulac) 20 gm PO BID [facility] Last Admin: 12/06/18 08:37 Dose: 20 gm Levofloxacin (Levaquin) 750 mg PO Q24H [facility] Last Admin: 12/07/18 10:05 Dose: 750 mg Lorazepam (Ativan) 1 mg IVPUSH Q6H PRN PRN Reason: restlessness Last Admin: 12/07/18 21:33 Dose: 1 mg Magnesium Oxide (Magnesium Oxide) 800 mg PO BID [facility] Last Admin: 12/11/18 09:00 Dose: Not Given Methylprednisolone Sodium Succinate (Solu-Medrol) 125 mg IVPUSH Q8H [facility] Stop: 12/04/18 06:01 Last Admin: 12/04/18 05:40 Dose: 125 mg Midazolam HCl (Versed 1 Mg/Ml) 5 mg IVPUSH ONETIME ONE Stop: 11/30/18 19:30 Last Admin: 11/30/18 19:32 Dose: 5 mg Modafinil (Provigil) 200 mg PO DAILY [facility] Stop: 12/04/18 07:30 Last Admin: 12/03/18 08:00 Dose: 200 mg Modafinil (Provigil) 100 mg PO ONETIME ONE Stop: 12/02/18 20:45 Last Admin: 12/02/18 21:10 Dose: 100 mg Modafinil (Provigil) 200 mg PO NOW [facility] Stop: 12/04/18 13:28 Last Admin: 12/04/18 15:15 Dose: 200 mg Modafinil (Provigil) 200 mg PO DAILY [facility] Last Admin: 12/09/18 11:55 Dose: Not Given Morphine Sulfate (Morphine) 1 mg IVPUSH ONETIME ONE Stop: 12/01/18 11:18 Last Admin: 12/01/18 11:37 Dose: 1 mg Morphine Sulfate (Morphine) 2 mg IVPUSH ONETIME ONE Stop: 12/01/18 16:46 Last Admin: 12/01/18 16:52 Dose: 2 mg Morphine Sulfate (Morphine) 2 mg IVPUSH Q4H PRN PRN Reason: Shortness of Breath Last Admin: 12/04/18 17:06 Dose: 2 mg Morphine Sulfate (Morphine) 1 mg IVPUSH ONETIME ONE Stop: 12/03/18 16:11 Last Admin: 12/03/18 16:24 Dose: 1 mg Morphine Sulfate (Morphine) 1 mg IVPUSH Q4H PRN PRN Reason: Shortness of Breath Last Admin: 12/07/18 20:56 Dose: 1 mg Neostigmine Methylsulfate (Neostigmine Methylsulfate) 0.5 mg IM Q6H [facility]IR[facility] Stop: 12/08/18 07:31 Last Admin: 12/08/18 09:43 Dose: 0.5 mg Racepinephrine (S-2 2.25%) 0.5 ml NEB Q4HRRT PRN PRN Reason: subglottic narrowing Racepinephrine (S-2 2.25%) 0.5 ml NEB TID DHIRAJ Stop: 12/06/18 09:00 Last Admin: 12/05/18 20:23 Dose: 0.5 ml Racepinephrine (S-2 2.25%) 0.5 ml NEB Q4HRRT PRN PRN Reason: choking Last Admin: 12/06/18 10:14 Dose: 0.5 ml Racepinephrine (S-2 2.25%) 0.5 ml NEB ONETIME ONE Stop: 12/04/18 13:41 Last Admin: 12/04/18 13:40 Dose: 0.5 ml Rivaroxaban (Xarelto) 20 mg PO DAILY [facility] Last Admin: 12/05/18 12:37 Dose: Not Given Rivaroxaban (Xarelto) 20 mg PO ONETIME ONE Stop: 12/04/18 21:28 Last Admin: 12/04/18 22:32 Dose: 20 mg Sodium Chloride (Saline Flush) 10 ml FLUSH ONETIME ONE Stop: 12/02/18 07:40 Last Admin: 12/02/18 09:30 Dose: 10 ml Sodium Chloride (Sodium Chloride 0.9%) 0 ml INH TID DHIRAJ Stop: 12/06/18 09:00 Last Admin: 12/06/18 10:15 Dose: 3 ml Sodium Chloride (Sodium Chloride 0.9%) 3 ml INH ASDIRECTED PRN PRN Reason: mix with racepinephrine neb Succinylcholine Chloride (Quelicin) 180 mg IV ONETIME ONE Stop: 11/30/18 18:46 Last Admin: 11/30/18 18:53 Dose: 180 mg - Exam Quality Assessment: Reports: Supplemental Oxygen General: Reports: Obtunded HEENT: Reports: Pupils Equal, Pupils Reactive, Other Neck: Reports: Supple Lungs: Reports: Normal Respiratory Effort, Decreased Breath Sounds Cardiovascular: Reports: Regular Rate, Regular Rhythm GI/Abdominal Exam: Normal Bowel Sounds, Soft, No Mass, Hepatomegaly. No: Guarding, Rigid, Rebound (Male) Exam: Other (indwelling perez catheter) Rectal (Males) Exam: Other (recatl tube) Back Exam: Reports: Normal Inspection, Decreased Range of Motion Extremities: Normal Inspection, Normal Range of Motion, Non-Tender, Pedal Edema Skin: Reports: Warm, Dry, Intact Neurological: Reports: Other (deferred: not appropraite) Psy/Mental Status: Reports: Other Discharge Operative/Procedures - Procedures Performed Intubation Indication: Airway Protection
[2018-12-11 16:02] VITALS: BP 113/55
== END 2018-12-11 18:21 | DRG 280 ==
LOC: JD.ED 16:29 → JD.ICU 19:51 → JD.MS 12-08 19:35
PROVIDERS: ADMIT Internal Medicine Cardiovascular Disease; ATTEND Internal Medicine Cardiovascular Disease
PROC: 0D9670Z Drainage of Stomach with Drainage Device, Via Natural or Artificial Opening (ICD-10-PCS; 2018-11-30)
PROC: 0BH17EZ Insertion of Endotracheal Airway into Trachea, Via Natural or Artificial Opening (ICD-10-PCS; 2018-11-30)
PROC: 5A1945Z Respiratory Ventilation, 24-96 Consecutive Hours (ICD-10-PCS; 2018-11-30)
PROC: 02HV33Z Insertion of Infusion Device into Superior Vena Cava, Percutaneous Approach (ICD-10-PCS; 2018-12-02)
PROC: 0D9670Z Drainage of Stomach with Drainage Device, Via Natural or Artificial Opening (ICD-10-PCS; 2018-12-04)
PROC: 0D9670Z Drainage of Stomach with Drainage Device, Via Natural or Artificial Opening (ICD-10-PCS; principal; 2018-12-08)
PROC: 0D9P70Z Drainage of Rectum with Drainage Device, Via Natural or Artificial Opening (ICD-10-PCS; 2018-12-08)
DX: K70.31 Alcoholic cirrhosis of liver with ascites (principal); D61.818 Other pancytopenia; J91.8 Pleural effusion in other conditions classified elsewhere; J18.9 Pneumonia, unspecified organism; K83.1 Obstruction of bile duct; J38.4 Edema of larynx; E11.65 Type 2 diabetes mellitus with hyperglycemia; K56.7 Ileus, unspecified; E83.42 Hypomagnesemia; E83.51 Hypocalcemia; E87.70 Fluid overload, unspecified; I86.8 Varicose veins of other specified sites; K64.9 Unspecified hemorrhoids; K72.10 Chronic hepatic failure without coma; K21.9 Gastro-esophageal reflux disease without esophagitis; K72.00 Acute and subacute hepatic failure without coma; F10.21 Alcohol dependence, in remission; I10 Essential (primary) hypertension; E66.9 Obesity, unspecified; D50.9 Iron deficiency anemia, unspecified; G89.29 Other chronic pain; M54.9 Dorsalgia, unspecified; E03.9 Hypothyroidism, unspecified; L30.9 Dermatitis, unspecified; Z91.14 Patient's other noncompliance with medication regimen; Z79.899 Other long term (current) drug therapy; Z86.14 Personal history of Methicillin resistant Staphylococcus aureus infection; Z68.38 Body mass index [BMI] 38.0-38.9, adult; Z98.84 Bariatric surgery status
CPT/HCPCS: 31500; 36415; 36569; 36600; 51702; 70450; 70450-26; 71045; 71045-26; 71250; 71250-26; 71260; 71260-26; 71275; 71275-26; 74018; 74018-26; 74176; 74176-26; 74177; 74177-26; 80048; 80053; 80076; 80306; 81001; 82140; 82247; 82248; 82803; 82962; 83036; 83605; 83690; 83735; 83880; 84443; 84484; 85025; 85379; 85610; 86140; 92526-GN; 92610-GN; 93005; 93010; 93970; 93970-26; 94003; 94640; 94760; 94761; 96361; 96365; 96375; 97110-GO; 97110-GP; 97140-GO; 97162-GP; 97167-GO; 97530-GO; 97530-GP; 99285; 99285-25; A9270-GY; C1751; G0480; J0330; J0610; J1100; J1815-GY; J1956; J2060; J2250; J2270; J2543; J2704; J2710; J2765; J2930; J3475; J3480; J3490; J7030; J7040; J7042; J7050; J7060; J7620-GY; P9047; Q9967